=== PATIENT | male | born 1940 | race Caucasian/White ===

== ENCOUNTER 2017-01-23 08:12 | Day surgery (SDC) | payer MEDICARE, OTHER ==
[2017-01-20 10:55] VITALS: BMI 32.5
[~2017-01-23 08:12] MED LIST: ceFAZolin 1,000 MG in SODIUM CHLORIDE 0.9% IRRIGATIO 250 ML IRRIGATION ONE; ceFAZolin 2 GM in SODIUM CHLORIDE 0.9% 100 ML IVPB ONE
[2017-01-23] MEDS: SODIUM CHLORIDE 0.9% 1,000 ML IV SCH (08:43)
[2017-01-23 09:04] LABS: Anion Gap 11 mmol/L; Blood Urea Nitrogen 16 mg/dL (9-20); Calcium 9.4 mg/dL (8.4-10.2); Carbon Dioxide 24 mmol/L (22-30); Chloride 107 mmol/L (98-107); Glucose 116 mg/dL (74-99); Non-African American GFR(MDRD) 50 (>60 ml/min/1.73 sqM); Potassium 4.9 mmol/L (3.5-5.1); Sodium 142 mmol/L (137-145)
[2017-01-23] MEDS ORDERED: diphenhydrAMINE 50 MG/ML 1 ML VIAL ONE (09:12)
[2017-01-23] MEDS ORDERED: LIDOCAINE 1% INJ 10MG/ML (20 ML MDV) ONE (09:12)
[2017-01-23] MEDS ORDERED: fentaNYL (PF) 50 MCG/ML 2 ML AMP ONE (09:12)
[2017-01-23] MEDS ORDERED: PROPOFOL 10 MG/ML 20 ML VIAL IV ONE (09:12)
[2017-01-23] MEDS ORDERED: MIDAZOLAM 2 MG/2 ML VIAL ONE (09:12)
[2017-01-23] MEDS ORDERED: LIDOCAINE 1% INJ 10MG/ML (20 ML MDV) SQ ONE ×2 (09:48)
[2017-01-23] MEDS ORDERED: ACETAMINOPHEN TAB 325 MG TAB PO PRN (10:22)
[2017-01-23] MEDS ORDERED: POLYETHYLENE GLYCOL 3350 17 GM POWD.PACK PO PRN (10:23)
--- NOTE | 2017-01-23 10:33 | P.PCN ---
Date of Procedure: 01/23/17 Preoperative Diagnosis: , Cardiomyopathy and congestive heart failure with ejection fraction of less than 30% Postoperative Diagnosis: The same Procedure(s) Performed: Single-chamber AICD implantation, axillary venography Description of Procedure: HISTORY: This is a 76-year-old gentleman with history of ischemic cardiomyopathy and chronic congestive heart failure being followed by Dr. Yost. Patient also has chronic atrial fibrillation. He is advised to have single-chamber AICD for primary prevention CONSENT:I have discussed the risks, benefits and alternative therapies for the above-mentioned procedure and for both sedation/analgesia as well as necessary blood product administration, if indicated, as they pertain to this patient. The patient has indicated understanding and acceptance of the risks and procedures discussed. PROCEDURE: Patient was brought to the lab in a fasting state. Patient was prepped and draped in the usual fashion. Patient was given IV sedation with fentanyl and Versed. The skin below the left clavicle was infiltrated with lidocaine. An incision was made parallel to deltopectoral groove was deepened until the pectoral fascia was exposed. A pocket was created by blunt dissection and cautery. Axillary venography was performed to delineate the course of the axillary vein. One stick were performed into extrathoracic portion of the axillary vein and one sheath was advanced over the guidewires and left in subclavian vein. LEADS: VENTRICULAR: This is manufactured by [employer]. The model number is 0293. Serial number is [id number]. THE DEVICE: This is manufactured by [employer]. Model number is D150 and the serial number is [id number] The ventricular lead is maneuvered l with help of a straight and curved stylets into the left ventricle apical region. Satisfactory position was obtained and threshold measurements were made. The atrial lead was then maneuvered into the right atrial appendage. And thresholds were obtained. THRESHOLDS: VENTRICLE : The minimal patient threshold is 0.6 V at pulse width of 0.5 ms the impedance is 8 and 48 ohms. Shock impedance is 848 ohms R-wave: 8.2 mV The leads and pulse generator remained in the pocket after it was washed with antibiotics. Pocket was closed in the usual fashion. The fascia was closed with 2-0 Prolene ,the subcutaneous tissue was closed with 3-0 Prolene and the skin was closed with 4-0 Prolene. PROGRAMMING: MODE: VVI RATE: 40 OUTPUT: ventricle: 3.5 V at pulse width of 0.5 ms TACHYCARDIA THERAPY: VF ZONE: RATE IS PROGRAMMED TO 205 BPM. THERAPIES PROGRAMMED TO 41 J 8. VT ZONE. PROGRAMMED TO A RATE OF 1 75 BPM. DURATION IS PROGRAMMED TO 15 SECONDS. THERAPIES PROGRAMMED TO ATP, 31 J 1 FOLLOWED BY 41 J 5. FINAL IMPRESSION: #1. Axillary venography #2. Successful implantation of a single coil single-chamber AICD. COMPLICATIONS:None none PLAN: Patient will be monitored on the telemetry unit. Prophylactic antibiotic be continued. Patient was noted to be converted to sinus rhythm with a single attempt of T shock was done to induce V. tach which was unsuccessful. Subsequently that was abundant. We will start anticoagulation later today with IV heparin and changed to by mouth from tomorrow.
[2017-01-23] MEDS ORDERED: ceFAZolin 2 GM in SODIUM CHLORIDE 0.9% 100 ML IVPB STA (15:33)
[2017-01-23] MEDS ORDERED: HYDROcodone/APAP 10-325MG 1 EACH TAB ONE (16:06)
[2017-01-23] MEDS: HYDROcodone/APAP 5-325MG 1 EACH TAB PO PRN ×2 (16:11→22:14)
[2017-01-23] MEDS ORDERED: HEPARIN SODIUM PORCINE IV ONE (18:29)
[2017-01-23] MEDS ORDERED: SALINE IV ONE (18:29)
[2017-01-23] MEDS ORDERED: NS IV ONE (18:29)
[2017-01-23] MEDS ORDERED: HEPARIN SODIUM,PORCINE/D5W PMX 25,000 UNIT in DEXTROSE/WATER 1 500ML.BAG IV SCH (19:00)
[2017-01-23] MEDS ORDERED: ATORVASTATIN 80 MG TAB PO SCH (21:00)
[2017-01-23] MEDS: PANTOPRAZOLE 40 MG TABLET PO SCH (21:33)
[2017-01-23] MEDS: OXYBUTYNIN CHLORIDE 5 MG TAB PO SCH (21:33)
[2017-01-23] MEDS: GABAPENTIN 400 MG CAP PO SCH (21:33)
[2017-01-23] MEDS: METOPROLOL TARTRATE 50 MG TAB PO SCH (21:33)
[2017-01-23] MEDS: ceFAZolin 2 GM in SODIUM CHLORIDE 0.9% 100 ML IVPB SCH (22:09)
[2017-01-24] MEDS: ceFAZolin 2 GM in SODIUM CHLORIDE 0.9% 100 ML IVPB SCH ×3 (03:47→17:35)
[2017-01-24] MEDS: GABAPENTIN 400 MG CAP PO SCH ×4 (05:50→17:48)
[2017-01-24] MEDS: OXYBUTYNIN CHLORIDE 5 MG TAB PO SCH ×4 (05:50→17:48)
[2017-01-24] MEDS: SODIUM CHLORIDE 0.9% 1,000 ML IV SCH (07:12)
[2017-01-24] MEDS: HYDROcodone/APAP 5-325MG 1 EACH TAB PO PRN ×2 (07:31→17:53)
[2017-01-24 07:47] VITALS: RESP 18
--- NOTE | 2017-01-24 08:11 | XR ---
EXAMINATION TYPE: XR chest 2V DATE OF EXAM: 01/24/2017 6:17 AM COMPARISON: Prior chest x-ray for June 2015 HISTORY: Lead placement check TECHNIQUE: Frontal and lateral views of the chest are obtained. FINDINGS: Interval placement of a generator in the left pectoral region, intracardiac defibrillator lead is in the right ventricle. No pneumothorax or pleural effusion. Interstitium somewhat increased. Patient is post median sternotomy and the heart is enlarged. IMPRESSION: No evident complication status post defibrillator placement
--- NOTE | 2017-01-24 08:51 | P.DS ---
Providers Date of admission: January Attending physician: Dorothy Zhu Primary care physician: Husam Mulligan - Discharge Diagnosis(es) (1) Ischemic cardiomyopathy Current Visit: Yes Status: Acute (2) Chronic CHF Current Visit: Yes Status: Acute (3) AF (paroxysmal atrial fibrillation) Current Visit: No Status: Acute (4) Coronary atherosclerosis of [place] coronary artery Current Visit: No Status: Acute Priority: High (5) HTN (hypertension) Current Visit: No Status: Acute (6) Hyperlipemia Current Visit: No Status: Acute (7) History of placement of internal cardiac defibrillator Current Visit: Yes Status: Acute Hospital Course: This patient was brought infor prophylactic AICD implantation. Patient had device implanted yesterday which is a single-chamber single coil device. The procedure went without any complication. Patient remained stable. A chest x- ray shows proper lead position. Threshold remained stable. Patient complained of some wheezing last night. This morning his lungs appeared to be clear. Patient has been going in and out of atrial fibrillation and flutter. Currently is in sinus rhythm. Patient was maintained on low-dose heparin last night. The site looks good without any hematoma. We'll going to start him on low-dose apixaban 2.5 mg twice daily along with baby aspirin. He will resume Plavix from tomorrow. Patient will be followed by Dr. Yost in one week. Patient is given usual instructions of not lifting the left arm above the shoulder level. His nose revealed think pushing or pulling. He'll keep the area dry until seen in the office. He will also be given prophylactic antibiotics. Patient will report if there is an and the swelling or pain at the incision site. Plan - Discharge Summary Discharge Medication List Omeprazole [PriLOSEC] 40 mg PO AC-SUPPER 05/26/15 [History] Aspirin EC [Ecotrin Low Dose] 81 mg PO DAILY #30 tablet. 06/06/15 [Rx] Multivitamin [Men's Multi-Vitamin] 1 tab PO DAILY 08/08/15 [History] Atorvastatin [Lipitor] 80 mg PO HS 08/15/15 [History] Clopidogrel [Plavix] 75 mg PO DAILY #30 tab 08/17/15 [Rx] Cholecalciferol [Vitamin D3] 2,000 unit PO DAILY 12/19/15 [History] Ferrous Sulfate [Iron (65 MG Elemental)] 325 mg PO DAILY 12/19/15 [History] HYDROcodone/APAP 10-325MG [[place] 10-325] 1 tab PO Q6H PRN 12/19/15 [History] Metoprolol Tartrate [Lopressor] 50 mg PO BID 12/19/15 [History] Oxybutynin Chloride [Ditropan] 5 mg PO QID 12/19/15 [History] Docusate [Colace] 100 mg PO TID 01/01/16 [History] Apixaban [Eliquis] 2.5 mg PO BID 08/26/16 [History] Pyridoxine [Vitamin B-6] 100 mg PO DAILY 08/26/16 [History] Vitamin E (Dl,Tocopheryl Acet) [Vitamin E] 400 unit PO DAILY 08/26/16 [History] Gabapentin [Neurontin] 400 mg PO QID 01/23/17 [History] Lisinopril [Zestril] 2.5 mg PO DAILY 01/23/17 [History] Follow up Appointment(s)/Referral(s): Yosi Naqvi MD [STAFF PHYSICIAN] - 1 Week Discharge Disposition: HOME SELF-CARE
[2017-01-24] MEDS ORDERED: FERROUS SULFATE 325 MG TAB PO SCH (09:00)
[2017-01-24] MEDS ORDERED: PYRIDOXINE 50 MG TAB PO SCH (09:00)
[2017-01-24] MEDS ORDERED: MULTIVITAMINS, THERA 1 EACH TAB PO SCH (09:00)
[2017-01-24] MEDS ORDERED: CHOLECALCIFEROL 1,000 UNIT TAB PO SCH (09:00)
[2017-01-24] MEDS ORDERED: APIXABAN 2.5 MG TABLET PO SCH (09:00)
[2017-01-24] MEDS ORDERED: ASPIRIN 81 MG CHEW PO SCH (09:00)
[2017-01-24] MEDS: METOPROLOL TARTRATE 50 MG TAB PO SCH (09:05)
[2017-01-24 11:27] VITALS: BP 136/62; PULSE 48; TEMP 97.5
[2017-01-24] MEDS: PANTOPRAZOLE 40 MG TABLET PO SCH (17:48)
--- NOTE | 2017-01-28 12:02 | CDI ---
The procedure note states "IV sedation with fentanyl and Versed." Will you please clarify the level of sedation, such as moderate conscious. This information is required for proper coding and billing purposes. Please answer as an addendum to your op report. If you don't understand what is needed, please contact my credit administration manager, Maeve Sykes . Thank you. FRANSISCO Rob
--- NOTE | 2017-02-03 09:50 | CDI ---
The procedure note states "IV sedation with fentanyl and Versed.", yet the Anesthesia Record indicates GA. This is a conflict. Will you please clarify the level of sedation, such as moderate conscious or GA. This information is required for proper coding and billing purposes. Please answer as an addendum to your op report. If you don't understand what is needed, please contact my manager special events, Maeve Sykes . Thank you. FRANSISCO Rob
--- NOTE | 2017-03-07 14:38 | CDI ---
The procedure note states "IV sedation with fentanyl and Versed.", yet the Anesthesia Record indicates GA. This is a conflict. Will you please clarify the level of sedation, such as moderate conscious or GA. This information is required for proper coding and billing purposes. Please answer as an addendum to your op report. If you don't understand what is needed, please contact my liquor establishment manager, Maeve Sykes . Thank you. AYAN ROMERO
== END 2017-01-24 18:55 | disposition home or self-care (01) ==
LOC: CATHEP 08:12 → 3OBS 10:22 → CATHEP 01-24 18:55
PROVIDERS: ATTEND Internal Medicine Cardiovascular Disease
DX: I25.5 Ischemic cardiomyopathy (principal); I11.0 Hypertensive heart disease with heart failure; I50.42 Chronic combined systolic (congestive) and diastolic (congestive) heart failure; I48.2 Chronic atrial fibrillation; I25.10 Atherosclerotic heart disease of native coronary artery without angina pectoris; Z95.1 Presence of aortocoronary bypass graft; E78.5 Hyperlipidemia, unspecified; I48.92 Unspecified atrial flutter; Z00.6 Encounter for examination for normal comparison and control in clinical research program; I73.9 Peripheral vascular disease, unspecified; Z95.820 Peripheral vascular angioplasty status with implants and grafts; K21.9 Gastro-esophageal reflux disease without esophagitis; I25.2 Old myocardial infarction; Z79.01 Long term (current) use of anticoagulants; Z79.02 Long term (current) use of antithrombotics/antiplatelets; Z79.82 Long term (current) use of aspirin; Z79.891 Long term (current) use of opiate analgesic; Z79.899 Other long term (current) drug therapy; Z87.891 Personal history of nicotine dependence
CPT/HCPCS: 33249; 80048; 71020; C1892; C1769; C1777; C1722; J2250; J1200; J0690 ×3; J2001; J1644; J3010; J2704

== ENCOUNTER 2017-02-17 17:44 | Inpatient (IN) | payer MEDICARE, OTHER ==
[2017-02-17] MEDS ORDERED: SODIUM CHLORIDE 0.9% 1,000 ML IV STA ×2 (18:28→18:48)
[2017-02-17] MEDS ORDERED: methylPREDNISolone SOD SUCCI 125 MG/2 ML VIAL IV STA ×2 (18:29→18:48)
--- NOTE | 2017-02-17 18:36 | ED ---
SOB HPI - General Chief Complaint: Shortness of Breath Stated Complaint: coughing blood Time Seen by Provider: 02/17/17 18:02 Source: EMS Mode of arrival: EMS - History of Present Illness Initial Comments: This 76-year-old white male presents with a complaint of some hemoptysis. He has had some mild shortness of breath. He states that he has had this intermittently over the past 2 years. He states that it increased significantly this morning at approximately 5 AM. He has had some shortness of breath as well. He denies any actual chest pain. He denies any colored production of his sputum. It is more of a dark red type of color. He was seen at [facility] ER and transferred here for further treatment. He does have a history of prostate cancer and he had a prostatectomy in 1998. His been in remission in regard to his prostate cancer since that time. They noted that he does have a right lung mass at [place]. He did receive breathing treatments and a computed tomography scan of the chest as well. He currently is on aspirin, Plavix, and L [place]. He does have a cardiac history including previous coronary artery disease and CABG as well as atrial fibrillation. He was transferred to our hospital for further treatment and admission. No other complaints or modifying factors. - Related Data Home Medications Medication Instructions Recorded Confirmed Omeprazole [PriLOSEC] 40 mg PO AC-SUPPER 05/26/15 01/23/17 Multivitamin [Men's Multi-Vitamin] 1 tab PO DAILY 08/08/15 01/23/17 Atorvastatin [Lipitor] 80 mg PO HS 08/15/15 01/23/17 Cholecalciferol [Vitamin D3] 2,000 unit PO DAILY 12/19/15 01/20/17 Ferrous Sulfate [Iron (65 MG 325 mg PO DAILY 12/19/15 01/23/17 Elemental)] HYDROcodone/APAP 10-325MG [[place] 1 tab PO Q6H PRN 12/19/15 01/23/17 10-325] Metoprolol Tartrate [Lopressor] 50 mg PO BID 12/19/15 01/23/17 Oxybutynin Chloride [Ditropan] 5 mg PO QID 12/19/15 01/23/17 Docusate [Colace] 100 mg PO TID 01/01/16 01/23/17 Apixaban [Eliquis] 2.5 mg PO BID 08/26/16 01/20/17 Pyridoxine [Vitamin B-6] 100 mg PO DAILY 08/26/16 01/20/17 Vitamin E (Dl,Tocopheryl Acet) 400 unit PO DAILY 08/26/16 01/20/17 [Vitamin E] Gabapentin [Neurontin] 400 mg PO QID 01/23/17 01/23/17 Lisinopril [Zestril] 2.5 mg PO DAILY 01/23/17 01/23/17 Previous Rx's Medication Instructions Recorded Aspirin EC [Ecotrin Low Dose] 81 mg PO DAILY #30 tablet. 06/06/15 Clopidogrel [Plavix] 75 mg PO DAILY #30 tab 08/17/15 Allergies Allergy/AdvReac Type Severity Reaction Status Date / Time No Known Allergies Allergy Verified 02/17/17 18:22 Review of Systems ROS Statement: Those systems with pertinent positive or pertinent negative responses have been documented in the HPI. ROS Other: All systems not noted in ROS Statement are negative. Past Medical History Past Medical History: Atrial Fibrillation, Cancer, GERD/Reflux, Hyperlipidemia, Hypertension, Myocardial Infarction ([place]), Prostate Disorder Additional Past Medical History / Comment(s): prostate CA, see Dr Zhu H & P, SOB w/exertion Last Myocardial Infarction Date:: 05/27/15 History of Any Multi-Drug Resistant Organisms: MRSA Date of last positivie culture/infection: 09/2015 MDRO Source:: RIGHT TESTICLE Past Surgical History: Coronary Bypass/CABG, Joint Replacement, Prostate Surgery , Tonsillectomy Additional Past Surgical History / Comment(s): left thumb surgery., CABG (), BALLOON ANGIOPLASTY W/ STENT TO LT SFA (08/16/15), lt total knee, prostatectomy, 01/23/17 ICD Past Anesthesia/Blood Transfusion Reactions: No Reported Reaction Past Psychological History: Anxiety, Depression Additional Psychological History / Comment(s): TAKES NO MEDICATION Smoking Status: Former smoker Past Alcohol Use History: Occasional Additional Past Alcohol Use History / Comment(s): STARTED SMOKING AT AGE 15 QUIT SMOKING 2014 SMOKED 1 -1 1/2PPD Past Drug Use History: None Reported - Past Family History Father History Unknown: Yes Family Medical History: No Reported History Additional Family Medical History / Comment(s): young Mother Family Medical History: No Reported History Additional Family Medical History / Comment(s): young General Exam - General Exam Comments Initial Comments: GENERAL: The patient is well nourished and well hydrated. VITAL SIGNS: Heart rate, blood pressure, respiratory rate reviewed as recorded in nurse's notes. EYES: Pupils are round and reactive. Extraocular movements are intact. No conjunctival / lid redness or swelling. ENT: No external evidence of injury, swelling, or ecchymosis. Airway is patent. Throat is clear. NECK: Nontender. No swelling or evidence of injury. No subcutaneous emphysema. Trachea is midline. No thyroid mass. HEART: Regular rate and rhythm. Good peripheral pulses. LUNGS/CHEST: Wheezing is noted to bilateral chest. No respiratory distress noted. No ecchymosis, subcutaneous emphysema, or tenderness. He does cough on occasion and brings up bright red blood. ABDOMEN: Abdomen soft without tenderness. No palpable masses or organomegaly. No peritoneal signs. No abdominal wall swelling or ecchymosis. EXTREMITIES: No extremity tenderness. Normal muscle tone and function. No thoracolumbar tenderness. NEUROLOGIC: Sensation is grossly intact. Cranial nerve exam reveals face is symmetrical, tongue is midline, speech is clear. SKIN: No abrasions or ecchymosis is noted. No induration or masses noted. PSYCHIATRIC: Alert and oriented. Appropriate behavior and judgment. Course Vital Signs 02/17/17 17:49 Temperature 97.1 F L Pulse Rate 76 Respiratory 18 Rate Blood Pressure 147/87 O2 Sat by Pulse 98 Oximetry Medical Decision Making - Medical Decision Making The patient was seen and examined. The records from [facility] are reviewed. Patient is ordered a DuoNeb breathing treatment. His x-ray of the chest that showed possibility of a right sided mass. He also had a computed tomography scan of the thorax which shows a 2.1 cm right upper lobe peripheral mass with significant volume loss within the right upper lobe due to a large amount of right hilar adenopathy. There is significant right paratracheal adenopathy. The radiologist notes that the appearance is consistent with primary neoplasm of the lung. There is also patchy groundglass densities with in both lower lobes. The patient's hemoglobin was slightly low at 10.9. The EKG from the other facility does show an ectopic atrial rhythm. It is felt as though he would require admission to the hospital for further evaluation and treatment by pulmonology and possibly oncology. The case will be discussed with primary doctor in the near future and he will be admitted. Disposition Clinical Impression: Mass of upper lobe of right lung, Hemoptysis, Anemia, Hypertension, Atrial fibrillation, Bronchospasm Disposition: ADMITTED IP TO THIS HOSP Condition: Fair Time of Disposition: 18:36 Decision Date: 02/17/17 Decision Time: 18:36
[2017-02-17] MEDS: IPRATROPIUM-ALBUTEROL 3 ML NEB INHALATION STA ×2 (18:44→18:54)
[2017-02-17] MEDS ORDERED: IPRATROPIUM-ALBUTEROL 3 ML NEB INHALATION STA (18:48)
[2017-02-17] MEDS ORDERED: SODIUM CHLORIDE 0.9% 500 ML IV STA (18:48)
[2017-02-17] MEDS ORDERED: LEVOFLOXACIN 750MG-D5W PMX 750 MG in DEXTROSE/WATER 1 150ML.BAG IVPB STA (18:48)
[2017-02-17 21:26] VITALS: BMI 30.4
[2017-02-17] MEDS: APIXABAN 2.5 MG TABLET PO SCH (21:41)
[2017-02-17] MEDS: LISINOPRIL 2.5 MG TAB PO SCH (21:42)
[2017-02-17] MEDS: GABAPENTIN 400 MG CAP PO SCH (21:42)
[2017-02-17] MEDS: METOPROLOL TARTRATE 50 MG TAB PO SCH (21:42)
[2017-02-17] MEDS: OXYBUTYNIN CHLORIDE 5 MG TAB PO SCH (21:42)
[2017-02-18] MEDS: methylPREDNISolone SOD SUCCI 125 MG/2 ML VIAL IV SCH ×4 (00:55→16:05)
[2017-02-18] MEDS: ATORVASTATIN 80 MG TAB PO SCH (01:06)
[2017-02-18] MEDS: GABAPENTIN 400 MG CAP PO SCH ×4 (01:06→20:50)
[2017-02-18] MEDS: HYDROcodone/APAP 10-325MG 1 EACH TAB PO PRN (01:06)
[2017-02-18] MEDS: GABAPENTIN 100 MG CAP PO SCH ×2 (01:07→14:11)
[2017-02-18] MEDS: VITAMIN E (DL,TOCOPHERYL ACET) 400 UNIT CAP PO SCH (01:07)
[2017-02-18 01:37] LABS: Basophils % (A) 0 %; CH 35.6; CHCM 34.3; Eosinophils % (A) 0 %; HCT 30.6 % (39.0-53.0); HDW 2.74; HGB 10.6 gm/dL (13.0-17.5); Luc # (Auto) 0.04; Luc % (Auto) 1; Lymphocytes # (A) 0.5 k/uL (1.0-4.8); Lymphocytes % (A) 6 %; MCHC 34.6 g/dL (31.0-37.0); Macrocytosis Slight; Mean Platelet Volume 8.6; Monocytes # (A) 0.1 k/uL (0-1.0); Monocytes % (A) 2 %; Neutrophils # (A) 7.2 k/uL (1.3-7.7); Neutrophils % (A) 92 %; RBC 2.94 m/uL (4.30-5.90); RDW 12.7 % (11.5-15.5); WBC 7.9 k/uL (3.8-10.6); WBC (Perox) 7.88
[2017-02-18] MEDS ORDERED: ASPIRIN 81 MG CHEW PO SCH (02:00)
[2017-02-18 06:03] LABS: Hepatitis B Surface Ag Index 0.05
[2017-02-18 06:20] LABS: Hepatitis C Virus IgG Index 0.06
[2017-02-18 06:26] LABS: Hepatitis C Virus IgG Ab Negative (Negative)
[2017-02-18] MEDS: APIXABAN 2.5 MG TABLET PO SCH (08:48)
[2017-02-18] MEDS: POLYETHYLENE GLYCOL 3350 17 GM POWD.PACK PO SCH (08:54)
[2017-02-18] MEDS: OXYBUTYNIN CHLORIDE 5 MG TAB PO SCH ×4 (08:56→20:50)
[2017-02-18] MEDS: METOPROLOL TARTRATE 50 MG TAB PO SCH ×2 (08:56→20:51)
[2017-02-18] MEDS: MULTIVITAMINS, THERA 1 EACH TAB PO SCH (08:56)
[2017-02-18] MEDS: FERROUS SULFATE 325 MG TAB PO SCH (08:57)
[2017-02-18] MEDS: SPIRONOLACTONE 25 MG TAB PO SCH (08:58)
[2017-02-18 09:52] LABS: Basophils % (A) 0 %; CH 35.7; CHCM 33.9; Eosinophils % (A) 0 %; HCT 31.1 % (39.0-53.0); HDW 2.69; HGB 10.4 gm/dL (13.0-17.5); Luc # (Auto) 0.02; Luc % (Auto) 0; Lymphocytes # (A) 0.6 k/uL (1.0-4.8); Lymphocytes % (A) 5 %; MCH 35.4 pg (25.0-35.0); MCHC 33.5 g/dL (31.0-37.0); MCV 105.6 fL (80.0-100.0); Macrocytosis Slight; Mean Platelet Volume 7.6; Monocytes # (A) 0.3 k/uL (0-1.0); Monocytes % (A) 2 %; Neutrophils # (A) 12.3 k/uL (1.3-7.7); Neutrophils % (A) 93 %; RBC 2.95 m/uL (4.30-5.90); RDW 12.8 % (11.5-15.5); WBC 13.2 k/uL (3.8-10.6)
[2017-02-18] MEDS: IPRATROPIUM-ALBUTEROL 3 ML NEB INHALATION PRN ×2 (11:26→19:55)
[2017-02-18] MEDS: SODIUM CHLORIDE 0.9% 1,000 ML IV SCH ×2 (12:07→21:30)
--- NOTE | 2017-02-18 13:27 | P.CNPUL ---
History of Present Illness Consult date: 02/18/17 Requesting physician: Husam Mulligan Reason for consult: abnormal CXR/CT (Right upper lobe mass, hemoptysis) Chief complaint: Hemoptysis History of present illness: This is a very pleasant 76-year-old gentleman who follows with Dr. Mulligan as his primary care physician. He has a history of atrial fibrillation, myocardial infarction, coronary artery disease status post coronary artery bypass grafting, ischemic cardiomyopathy status post AICD placement less than one month ago, hyperlipidemia, hypertension, prostate cancer status post prostatectomy. The patient has been maintained on aspirin and Plavix and Eliquis. He does have a significant 18-qhcb-gnon smoking history though states he had quit on and off throughout those years. He did quit altogether in 2014. He presented here to the emergency room yesterday from [facility] following complaints of hemoptysis. He's been coughing up quite a bit of bright red and occasional dark blood clots. A computed tomography scan of the chest revealed a 2.1 cm right upper lobe peripheral mass with significant volume loss in the right upper lobe due to a large amount of right hilar adenopathy. We are consulted for the same. The patient is seen today in the regular medical floor. He continues to have a fair amount of hemoptysis. His Plavix aspirin and Eliquis are now on hold. He is on heparin subcutaneous for DVT prophylaxis. He denies any worsening shortness of breath. He is maintaining O2 saturations in the mid 90s on room air. He has been hemodynamically stable. Afebrile. Current hemoglobin 10.4. Platelet count 135 ,000. Hepatitis B and C were negative. HIV is negative. Review of Systems 14 point review of system was conducted. All negative other than as mentioned in HPI. Past Medical History Past Medical History: Atrial Fibrillation, Cancer, GERD/Reflux, Hyperlipidemia, Hypertension, Myocardial Infarction ([place]), Prostate Disorder Additional Past Medical History / Comment(s): prostate CA, neuropathy Last Myocardial Infarction Date:: 05/27/15 History of Any Multi-Drug Resistant Organisms: MRSA Date of last positivie culture/infection: 09/2015 MDRO Source:: RIGHT TESTICLE Past Surgical History: Coronary Bypass/CABG, Joint Replacement, Prostate Surgery , Tonsillectomy Additional Past Surgical History / Comment(s): left thumb surgery., CABG (), BALLOON ANGIOPLASTY W/ STENT TO LT SFA (08/16/15), lt total knee, prostatectomy, 01/23/17 ICD Past Anesthesia/Blood Transfusion Reactions: No Reported Reaction Past Psychological History: Anxiety, Depression Additional Psychological History / Comment(s): TAKES NO MEDICATION Smoking Status: Former smoker Past Alcohol Use History: Occasional Additional Past Alcohol Use History / Comment(s): STARTED SMOKING AT AGE 15 QUIT SMOKING 2014 SMOKED 1 -1 1/2PPD Past Drug Use History: None Reported - Past Family History Father History Unknown: Yes Family Medical History: No Reported History Additional Family Medical History / Comment(s): young Mother Family Medical History: No Reported History Additional Family Medical History / Comment(s): young Medications and Allergies Home Medications Medication Instructions Recorded Confirmed Type Omeprazole [PriLOSEC] 40 mg PO AC-SUPPER 05/26/15 02/17/17 History Atorvastatin [Lipitor] 80 mg PO HS@0200 08/15/15 02/17/17 History Cholecalciferol [Vitamin D3] 1,000 unit PO DAILY@1400 12/19/15 02/17/17 History Ferrous Sulfate [Iron (65 MG 325 mg PO DAILY@0800 12/19/15 02/17/17 History Elemental)] HYDROcodone/APAP 10-325MG [[place] 1 tab PO Q6H PRN 12/19/15 02/17/17 History 10-325] Oxybutynin Chloride [Ditropan] 5 mg PO QID 12/19/15 02/17/17 History Docusate [Colace] 300 mg PO DAILY@139901/01/16 02/17/17 History Apixaban [Eliquis] 2.5 mg PO BID@0800,199908/26/16 02/17/17 History Pyridoxine [Vitamin B-6] 100 mg PO DAILY@139908/26/16 02/17/17 History Vitamin E (Dl,Tocopheryl Acet) 400 unit PO HS@0200 08/26/16 02/17/17 History [Vitamin E] Lisinopril [Zestril] 2.5 mg PO DAILY@199901/23/17 02/17/17 History Aspirin EC [Ecotrin Low Dose] 81 mg PO HS@0200 02/17/17 02/17/17 History Clopidogrel [Plavix] 75 mg PO DAILY@0800 02/17/17 02/17/17 History Gabapentin [Neurontin] 100 mg PO BID@1400,0200 02/17/17 02/17/17 History Gabapentin [Neurontin] 400 mg PO QID 02/17/17 02/17/17 History Metoprolol Tartrate [Lopressor] 50 mg PO BID@0800,2000 02/17/17 02/17/17 History Multivitamins, Thera [Multivitamin 1 tab PO DAILY@0800 02/17/17 02/17/17 History (formulary)] Polyethylene Glycol 3350 [Miralax] 17 gm PO DAILY@0800 02/17/17 02/17/17 History Spironolactone [Aldactone] 25 mg PO DAILY@0800 02/17/17 02/17/17 History Allergies Allergy/AdvReac Type Severity Reaction Status Date / Time No Known Allergies Allergy Verified 02/17/17 18:22 Physical Exam Vitals: Vital Signs Temp Pulse Pulse Pulse Resp BP BP 02/18/17 11:48 82 02/18/17 11:26 80 18 02/18/17 08:00 68 66 18 02/18/17 07:00 96.2 F L 66 18 158/70 02/18/17 00:00 68 16 02/17/17 22:55 97 F L 87 16 162/67 02/17/17 21:00 97.6 F 89 16 167/73 02/17/17 20:38 97.3 F L 87 18 188/78 02/17/17 19:36 97.9 F 72 18 153/76 Pulse Ox 02/18/17 11:48 02/18/17 11:26 02/18/17 08:00 02/18/17 07:00 94 L 02/18/17 00:00 02/17/17 22:55 96 02/17/17 21:00 95 02/17/17 20:38 96 02/17/17 19:36 96 Intake and Output 02/17/17 02/18/17 02/18/17 22:59 06:59 14:59 Other: Voiding Method Toilet # Voids 1 1 Weight 90.7 kg 94.4 kg Patient Weight 02/19/17 06:59 Weight 94.4 kg GENERAL EXAM: Alert, fairly comfortable in no apparent distress. HEAD: Normocephalic. EYES: Normal reaction of pupils, equal size. NOSE: Clear with pink turbinates. THROAT: No erythema or exudates. NECK: No masses, no JVD. CHEST: No chest wall deformity. LUNGS: Equal air entry with few scattered rhonchi in the right lung. CVS: S1 and S2 normal with audible murmur, irregular rhythm. ABDOMEN: No hepatosplenomegaly, normal bowel sounds, no guarding or rigidity. SPINE: No scoliosis or deformity SKIN: No rashes CENTRAL NERVOUS SYSTEM: No focal deficits, tone is normal in all 4 extremities. Extremities: There is trace peripheral edema. No clubbing, no cyanosis. Peripheral pulses are intact. Results - Laboratory Findings CBC and BMP: 02/18/17 09:11 Abnormal lab findings: Abnormal Labs 02/18/17 02/18/17 01:31 09:11 WBC 13.2 H RBC 2.94 L 2.95 L Hgb 10.6 L 10.4 L Hct 30.6 L 31.1 L MCV 104.0 H 105.6 H MCH 36.0 H 35.4 H Plt Count 135 L 136 L Neutrophils # 12.3 H Lymphocytes # 0.5 L 0.6 L - Diagnostic Findings Chest x-ray: image reviewed CT scan - chest: image reviewed Assessment and Plan Plan: Impression: #1 Hemoptysis secondary to suspected bronchogenic carcinoma with a 2.1 cm mass in the right upper lobe. The patient had been anticoagulated with aspirin, Plavix and Eliquis. #2 History of 50+ pack year smoking, quit in 2014. #3 Ischemic cardiomyopathy status post AICD placement on 01/23/2017. Chest x- ray at that time showed no acute process. No evidence of right upper lobe mass or right hilar adenopathy. #4 Coronary artery disease with previous coronary artery bypass grafting. #5 Atrial fibrillation and is anticoagulated with Eliquis. #6 Peripheral vascular disease with previous stent to the left SFA. Currently on aspirin and Plavix. #7 Hyperlipidemia. #8 Anxiety/depression. #9 Hypertension. #10 History of prostate cancer status post prostatectomy. Plan: The patient was seen and evaluated by Dr. Sol. His chest x-ray and CAT scans were reviewed. We are suspicious for bronchogenic carcinoma. We'll plan for bronchoscopy and biopsy of the right upper lobe mass tomorrow. We'll continue to monitor him closely for his hemoptysis. He did have some significant tissue along with the clot we will send that to pathology for possible diagnosis but will continue to plan for the proper tomorrow. His Eliquis, Plavix and aspirin are on hold. He'll remain on heparin subcutaneous for DVT prophylaxis. He remains on bronchodilators and IV Solu-Medrol. We'll continue to follow. Time with Patient: Greater than 30
--- NOTE | 2017-02-18 14:02 | P.HPIM ---
History of Present Illness H&P Date: 02/18/17 Chief Complaint: Hemoptysis Patient is a 76-year-old male, patient of Dr. Mulligan in the outpatient setting, with medical history significant for paroxysmal atrial fibrillation, GERD, hyperlipidemia, hypertension, coronary artery disease status post coronary artery bypass grafting in 2014 followed by stenting to the left SFA in August 2015, myocardial infarction, ischemic cardiomyopathy status post placement of internal cardiac defibrillator, prostate cancer status post prostatectomy in 1998, peripheral vascular disease status post stent placement to left lower extremity, osteoarthritis, severe peripheral neuropathy, and remote nicotine dependence. Patient presented via EMS to the emergency department when he was transferred from [facility] for hemoptysis and mild shortness of breath. Patient apparently had had intermittent hemoptysis over the last couple years but increased significantly at 5 AM on the morning of admission. According to chart, CT chest obtained at [facility] did reveal a 2.1 cm right upper lobe mass with appearance consistent with primary neoplasm of lung. Admission labs with evidence of anemia and thrombocytopenia. Patient was admitted to the medical floor on cardiac monitoring, started on IV antibiotics in the form of Levaquin, and consults were requested for Dr. Sol for pulmonology service and cardiology recommendations for anticoagulation. Upon examination, patient is sitting upright in bed. Patient reports persistent coughing with persistent hemoptysis. Secretions are dark red with blood clots and small amounts of tissue are noted. Patient complains of pain inferiorly to right rib cage. Patient complains of mild dizziness with ambulation. Patient denies nausea, vomiting, chills, fevers, recent illness, chest pain, constipation, diarrhea, urinary urgency, frequency, hematuria. Patient states his bowel movements are usually black which he states is from iron supplements. Past Medical History Past Medical History: Atrial Fibrillation, Cancer, GERD/Reflux, Hyperlipidemia, Hypertension, Myocardial Infarction (SC), Prostate Disorder Additional Past Medical History / Comment(s): prostate CA, neuropathy Last Myocardial Infarction Date:: 05/27/15 History of Any Multi-Drug Resistant Organisms: MRSA Date of last positivie culture/infection: 09/2015 MDRO Source:: RIGHT TESTICLE Past Surgical History: Coronary Bypass/CABG, Joint Replacement, Prostate Surgery , Tonsillectomy Additional Past Surgical History / Comment(s): left thumb surgery., CABG (), BALLOON ANGIOPLASTY W/ STENT TO LT SFA (08/16/15), lt total knee, prostatectomy, 01/23/17 ICD Past Anesthesia/Blood Transfusion Reactions: No Reported Reaction Past Psychological History: Anxiety, Depression Additional Psychological History / Comment(s): TAKES NO MEDICATION Smoking Status: Former smoker Past Alcohol Use History: Occasional Additional Past Alcohol Use History / Comment(s): STARTED SMOKING AT AGE 15 QUIT SMOKING 2014 SMOKED 1 -1 1/2PPD Past Drug Use History: None Reported - Past Family History Father History Unknown: Yes Family Medical History: No Reported History Additional Family Medical History / Comment(s): young Mother Family Medical History: No Reported History Additional Family Medical History / Comment(s): young Medications and Allergies Home Medications Medication Instructions Recorded Confirmed Type Omeprazole [PriLOSEC] 40 mg PO AC-SUPPER 05/26/15 02/17/17 History Atorvastatin [Lipitor] 80 mg PO HS@0200 08/15/15 02/17/17 History Cholecalciferol [Vitamin D3] 1,000 unit PO DAILY@1400 12/19/15 02/17/17 History Ferrous Sulfate [Iron (65 MG 325 mg PO DAILY@0800 12/19/15 02/17/17 History Elemental)] HYDROcodone/APAP 10-325MG [[place] 1 tab PO Q6H PRN 12/19/15 02/17/17 History 10-325] Oxybutynin Chloride [Ditropan] 5 mg PO QID 12/19/15 02/17/17 History Docusate [Colace] 300 mg PO DAILY@1400 01/01/16 02/17/17 History Apixaban [Eliquis] 2.5 mg PO BID@08,199908/26/16 02/17/17 History Pyridoxine [Vitamin B-6] 100 mg PO DAILY@1400 08/26/16 02/17/17 History Vitamin E (Dl,Tocopheryl Acet) 400 unit PO HS@0200 08/26/16 02/17/17 History [Vitamin E] Lisinopril [Zestril] 2.5 mg PO DAILY@199901/23/17 02/17/17 History Aspirin EC [Ecotrin Low Dose] 81 mg PO HS@0200 02/17/17 02/17/17 History Clopidogrel [Plavix] 75 mg PO DAILY@0802/17/1717 History Gabapentin [Neurontin] 100 mg PO BID@1400,0200 02/17/17 02/17/17 History Gabapentin [Neurontin] 400 mg PO QID 02/17/17 02/17/17 History Metoprolol Tartrate [Lopressor] 50 mg PO BID@0800,2000 02/17/17 02/17/17 History Multivitamins, Thera [Multivitamin 1 tab PO DAILY@0800 02/17/17 02/17/17 History (formulary)] Polyethylene Glycol 3350 [Miralax] 17 gm PO DAILY@0800 02/17/17 02/17/17 History Spironolactone [Aldactone] 25 mg PO DAILY@0800 02/17/17 02/17/17 History Allergies Allergy/AdvReac Type Severity Reaction Status Date / Time No Known Allergies Allergy Verified 02/17/17 18:22 Physical Exam Vitals: Vital Signs Temp Pulse Pulse Pulse Resp BP BP 02/18/17 11:48 82 02/18/17 11:26 80 18 02/18/17 08:00 68 66 18 02/18/17 07:00 96.2 F L 66 18 158/70 02/18/17 00:00 68 16 02/17/17 22:55 97 F L 87 16 162/67 02/17/17 21:00 97.6 F 89 16 167/73 02/17/17 20:38 97.3 F L 87 18 188/78 02/17/17 19:36 97.9 F 72 18 153/76 Pulse Ox 02/18/17 11:48 02/18/17 11:26 02/18/17 08:00 02/18/17 07:00 94 L 02/18/17 00:00 02/17/17 22:55 96 02/17/17 21:00 95 02/17/17 20:38 96 02/17/17 19:36 96 Intake and Output 02/17/17 02/18/17 02/18/17 22:59 06:59 14:59 Other: Voiding Method Toilet # Voids 1 1 Weight 90.7 kg 94.4 kg Patient Weight 02/19/17 06:59 Weight 94.4 kg GENERAL: Pt awake and alert, well-nourished, appears in no acute distress. HEAD: Atraumatic, normocephalic. EYES: Pupils equal, round, and reactive to light, extraocular movements intact, sclera anicteric, conjunctiva are normal. ENT: Moist mucous membranes. NECK:Supple without lymphadenopathy or JVD. LUNGS: Breath sounds diminished to right upper lobe with few rhonchi. HEART: Heart S1, S2, no S3 or S4. Irregularly irregular. Systolic murmur. ABDOMEN: Soft, obese, nontender, nondistended, normoactive bowel sounds. No guarding, no rebound. No masses or organomegaly appreciated. EXTREMITIES: 1+ peripheral pulses. Trace peripheral edema. No calf tenderness. NEUROLOGICAL: Pt oriented x 3. No focal deficits noted. Decreased sensation to bilateral lower extremities. PSYCH: Normal mood, normal affect. SKIN: Warm, dry, intact. Normal turgor. No rashes or lesions. Results CBC & Chem 7: 02/18/17 09:11 Labs: Abnormal Lab Results - Last 24 Hours (Table) 02/18/17 02/18/17 Range/Units 01:31 09:11 WBC 13.2 H (3.8-10.6) k/uL RBC 2.94 L 2.95 L (4.30-5.90) m/uL Hgb 10.6 L 10.4 L (13.0-17.5) gm/dL Hct 30.6 L 31.1 L (39.0-53.0) % MCV 104.0 H 105.6 H (80.0-100.0) fL MCH 36.0 H 35.4 H (25.0-35.0) pg Plt Count 135 L 136 L (150-450) k/uL Neutrophils # 12.3 H (1.3-7.7) k/uL Lymphocytes # 0.5 L 0.6 L (1.0-4.8) k/uL Thrombosis Risk Factor Assmnt - DVT/VTE Prophylaxis DVT/VTE Prophylaxis: Pharmacologic Prophylaxis ordered - Choose All That Apply Any of the Below Risk Factors Present?: Yes Each Factor Represents 1 point: Obesity (BMI >25), Serious lung disease incl. pneumonia (< 1month) Other Risk Factors: Yes Each Risk Factor Represents 2 Points: Age 61-74 years Thrombosis Risk Factor Assessment Total Risk Factor Score: 4 Thrombosis Risk Factor Assessment Level: Moderate Risk Assessment and Plan Plan: Impression: 1. Mild shortness of breath with hemoptysis suspect secondary to right upper lobe mass suspicious for carcinoma. 2. Anemia suspect secondary to hemoptysis with history of iron deficiency and vitamin B12 deficiency. 3. Thrombocytopenia, present on admission. 4. Paroxysmal atrial fibrillation maintained on Eliquis in the outpatient setting. 5. Hyperlipidemia. 6. Hypertension. 7. History of ischemic cardiomyopathy status post ICD placement. 8. Coronary artery disease status post coronary artery bypass grafting followed by stenting. 9. History of prostate cancer status post prostatectomy. 10. History of GERD. 11. Severe peripheral vascular disease status post stenting to right lower extremity. 12. Severe peripheral neuropathy. 13. Osteoarthritis. 14. History of anxiety and depression, stable. 15. History of nicotine dependence. Plan: Transfer patient to selective care unit for further monitoring and serial hemoglobin. Keep patient nothing by mouth until he has been evaluated by pulmonary service for possible bronchoscopy. Resume IV fluids at 100 mL an hour. Anticoagulation currently on hold. Continue bronchodilators and systemic steroids. Await pulmonology and cardiology recommendations. Maintain aspiration precautions. Home medications of been reviewed and resumed. Continue IV antibiotics for empiric coverage. Continue GI and DVT prophylaxis. Repeat labs in a.m. The above impression and plan have been discussed and directed by Dr. Mulligan. Carmel LACEY acting as scribe for Dr. Mulligan.
[2017-02-18] MEDS: CHOLECALCIFEROL 1,000 UNIT TAB PO SCH (14:10)
[2017-02-18] MEDS: DOCUSATE 100 MG CAP PO SCH (14:11)
[2017-02-18] MEDS: PYRIDOXINE 50 MG TAB PO SCH (14:12)
--- NOTE | 2017-02-18 14:59 | CONS ---
DATE OF CONSULTATION: Patient follows with my associate, Dr. Naqvi. Patient is known to have atherosclerotic heart disease, status post aortocoronary bypass done last year, August 2015. Patient was recently in the hospital last month with atrial fibrillation with fast ventricular rate, underwent cardioversion after having the SASHA done. Patient's SASHA shows 30% to 35% ejection fraction. Also underwent single chamber ICD done by Dr. Zhu and chest x-ray at that time showed no evidence of any other problems. This time comes in with hemoptysis for the last few days and patient was transferred from [facility]. Patient had a prostatectomy done in 1998, had a CT of the chest done which showed right upper lobe mass 2.1 cm with mediastinal adenopathy according to the emergency noted. I have not seen the report myself. In view of history of stenting of the SFA about in August of 2015, patient has been on Plavix and aspirin and Eliquis will be on hold until hemoptysis resolved and until the tile power shear operator has a chance to confirm the histologic diagnosis and the lung mass. ( ) new findings but will change patient's diagnosis. Patient's medications prior to admission include omeprazole 20 mg p.o. daily, multivitamins and atorvastatin 80 mg p.o. daily, Calciferol 2000 units daily, ferrous sulfate 325 mg, [place] as needed. Metoprolol tartrate 50 mg p.o. b.i.d., Ditropan 5 mg p.o. q.i.d., Colace 100 mg p.o. t.i.d., Eliquis 2.5 mg p.o. b.i.d., which will be on hold and lisinopril 2.5 mg p.o. daily, Neurontin 400 mg p.o. q.i.d. Patient's aspirin and Plavix are on hold and Eliquis will be on hold until hemoptysis resolves. We will start him on subQ heparin for DVT prophylaxis. Patient and family was informed of findings and tile power shear operator will talk to them with more details. Patient is under care of Dr. Naqvi. Patient also has history of MRSA in the past. Patient had a left SFA balloon angioplasty and stent done in August of 2015. Plavix can be on hold now. Started smoking at 15, quit smoking in 2014, used to smoke 1 to 1-1/2 pack of cigarettes a day. Patient's review of systems is essentially unremarkable other than what is stated in the presenting illness with hemoptysis. Physical examination revealed a well-developed 76-year-old gentleman, not in acute distress, oriented x3 with a pulse rate of 76 beats per minute and regular, blood pressure of 147/87, respirations of 18. HEAD: Normocephalic. HEENT unremarkable. Neck is supple. No thyroid enlargement. No bruit noted. Good carotid upstroke bilaterally. Chest is symmetrical. CARDIAC EXAMINATION: Regular rate and rhythm. Lungs are clinically clear to auscultation. No rales. Scattered rhonchi. Abdomen is soft, no organomegaly. Active bowel sounds. EXTREMITIES: Decreased pedal pulses. No pedal edema. RACK CARRIER examination grossly within normal limits. The patient's EKG shows normal sinus rhythm, normal ST-T waves. CT of the chest findings based on the ER note. I do not have the report to look at, printed report not scanned. ASSESSMENT: 1. Hemoptysis, right upper lobe lung mass with paratracheal nodes. 2. Atherosclerotic heart disease, status post aortocoronary bypass, chronic atrial fibrillation, remaining in sinus rhythm at the present time. 3. Status post AICD single chamber. Will go ahead and hold the Eliquis along with aspirin and Plavix and institute some subQ heparin. Will see him as our services are needed in the future. Thanks again for this kind referral.
[2017-02-18 15:39] LABS: Basophils % (A) 0 %; CH 34.8; CHCM 32.8; Eosinophils # (A) 0.1 k/uL (0-0.7); Eosinophils % (A) 0 %; HCT 29.7 % (39.0-53.0); HDW 2.62; HGB 9.7 gm/dL (13.0-17.5); Luc # (Auto) 0.08; Luc % (Auto) 1; Lymphocytes # (A) 0.7 k/uL (1.0-4.8); Lymphocytes % (A) 4 %; MCH 34.8 pg (25.0-35.0); MCHC 32.8 g/dL (31.0-37.0); MCV 106.3 fL (80.0-100.0); Macrocytosis Moderate; Mean Platelet Volume 7.9; Monocytes # (A) 0.7 k/uL (0-1.0); Monocytes % (A) 4 %; Neutrophils # (A) 15.4 k/uL (1.3-7.7); Neutrophils % (A) 91 %; RBC 2.79 m/uL (4.30-5.90); RDW 13.4 % (11.5-15.5); WBC 16.9 k/uL (3.8-10.6); WBC (Perox) 17.48
[2017-02-18 15:49] LABS: Anion Gap 13 mmol/L; Blood Urea Nitrogen 31 mg/dL (9-20); Calcium 9.7 mg/dL (8.4-10.2); Carbon Dioxide 16 mmol/L (22-30); Chloride 109 mmol/L (98-107); Glucose 166 mg/dL (74-99); Non-African American GFR(MDRD) 58 (>60 ml/min/1.73 sqM); Potassium 4.7 mmol/L (3.5-5.1); Sodium 138 mmol/L (137-145)
[2017-02-18] MEDS: LEVOFLOXACIN 750MG-D5W PMX 750 MG in DEXTROSE/WATER 1 150ML.BAG IVPB SCH (16:04)
[2017-02-18 16:55] LABS: Glucose,Whole Blood 205 mg/dL (75-99)
[2017-02-18] MEDS: PANTOPRAZOLE 40 MG TABLET PO SCH (17:19)
[2017-02-18] MEDS ORDERED: INSULIN LISPRO (humaLOG) 300 UNIT/3 ML VIAL SQ SCH (17:30)
[2017-02-18] MEDS: INSULIN LISPRO (humaLOG) 300 UNIT/3 ML VIAL SQ SCH ×2 (17:39→20:51)
[2017-02-18 20:22] LABS: Hemoglobin A1C 6.2 % (4.2-6.1)
[2017-02-18 20:47] LABS: Glucose,Whole Blood 159 mg/dL (75-99)
[2017-02-18] MEDS: LISINOPRIL 2.5 MG TAB PO SCH (20:50)
[2017-02-18] MEDS: HEPARIN SODIUM,PORCINE 5,000 UNIT/ML 1 ML VIAL SQ SCH (20:56)
[2017-02-18 22:55] LABS: Basophils % (A) 0 %; CH 34.9; CHCM 33.1; Eosinophils # (A) 0.1 k/uL (0-0.7); Eosinophils % (A) 1 %; HCT 29.3 % (39.0-53.0); HDW 2.62; HGB 9.6 gm/dL (13.0-17.5); Luc # (Auto) 0.11; Luc % (Auto) 1; Lymphocytes # (A) 0.7 k/uL (1.0-4.8); Lymphocytes % (A) 4 %; MCH 34.7 pg (25.0-35.0); MCHC 32.8 g/dL (31.0-37.0); MCV 105.9 fL (80.0-100.0); Macrocytosis Moderate; Mean Platelet Volume 8.5; Monocytes # (A) 0.7 k/uL (0-1.0); Monocytes % (A) 4 %; Neutrophils # (A) 16.9 k/uL (1.3-7.7); Neutrophils % (A) 91 %; RBC 2.77 m/uL (4.30-5.90); RDW 13.3 % (11.5-15.5); WBC 18.5 k/uL (3.8-10.6); WBC (Perox) 19.56
[2017-02-19] MEDS: GABAPENTIN 400 MG CAP PO SCH ×4 (01:04→20:57)
[2017-02-19] MEDS: GABAPENTIN 100 MG CAP PO SCH ×2 (01:04→13:52)
[2017-02-19] MEDS: methylPREDNISolone SOD SUCCI 125 MG/2 ML VIAL IV SCH ×4 (01:04→16:42)
[2017-02-19] MEDS: VITAMIN E (DL,TOCOPHERYL ACET) 400 UNIT CAP PO SCH (01:05)
[2017-02-19] MEDS: ATORVASTATIN 80 MG TAB PO SCH (01:05)
[2017-02-19 06:05] LABS: Glucose,Whole Blood 163 mg/dL (75-99)
[2017-02-19] MEDS: INSULIN LISPRO (humaLOG) 300 UNIT/3 ML VIAL SQ SCH ×4 (06:23→21:02)
[2017-02-19 07:08] LABS: Basophils % (A) 0 %; CH 35.2; CHCM 33.9; Eosinophils % (A) 0 %; HDW 2.68; Luc # (Auto) 0.07; Luc % (Auto) 1; Lymphocytes # (A) 0.7 k/uL (1.0-4.8); Lymphocytes % (A) 5 %; MCH 34.7 pg (25.0-35.0); MCHC 33.3 g/dL (31.0-37.0); MCV 104.3 fL (80.0-100.0); Macrocytosis Slight; Monocytes # (A) 0.6 k/uL (0-1.0); Monocytes % (A) 4 %; Neutrophils # (A) 13.8 k/uL (1.3-7.7); Neutrophils % (A) 91 %; RBC 2.59 m/uL (4.30-5.90); RDW 13.1 % (11.5-15.5); WBC 15.2 k/uL (3.8-10.6); WBC (Perox) 15.27
[2017-02-19 07:22] LABS: Anion Gap 13 mmol/L; Blood Urea Nitrogen 32 mg/dL (9-20); Calcium 9.9 mg/dL (8.4-10.2); Carbon Dioxide 18 mmol/L (22-30); Chloride 109 mmol/L (98-107); Glucose 139 mg/dL (74-99); Non-African American GFR(MDRD) 55 (>60 ml/min/1.73 sqM); Potassium 4.9 mmol/L (3.5-5.1); Sodium 140 mmol/L (137-145)
[2017-02-19] MEDS: SODIUM CHLORIDE 0.9% 1,000 ML IV SCH ×2 (07:57→16:43)
[2017-02-19] MEDS: OXYBUTYNIN CHLORIDE 5 MG TAB PO SCH ×4 (07:57→20:57)
[2017-02-19] MEDS: POLYETHYLENE GLYCOL 3350 17 GM POWD.PACK PO SCH (07:58)
[2017-02-19] MEDS: MULTIVITAMINS, THERA 1 EACH TAB PO SCH (07:58)
[2017-02-19] MEDS: HEPARIN SODIUM,PORCINE 5,000 UNIT/ML 1 ML VIAL SQ SCH ×2 (07:59→20:58)
[2017-02-19 11:51] LABS: Glucose,Whole Blood 162 mg/dL (75-99)
[2017-02-19] MEDS ORDERED: LIDOCAINE 1% INJ 10MG/ML (20 ML MDV) ONE (12:11)
[2017-02-19] MEDS ORDERED: MIDAZOLAM 2 MG/2 ML VIAL ONE (12:11)
[2017-02-19] MEDS ORDERED: PROPOFOL 10 MG/ML 20 ML VIAL IV ONE (12:11)
[2017-02-19] MEDS ORDERED: IV FLUID CONTINUATION 1,000 ML IV ONE (12:11)
--- NOTE | 2017-02-19 12:11 | P.PN ---
Subjective Principal diagnosis: Hemoptysis Patient is a 76-year-old male, patient of Dr. Mulligan in the outpatient setting, with medical history significant for paroxysmal atrial fibrillation, GERD, hyperlipidemia, hypertension, coronary artery disease status post coronary artery bypass grafting in 2014 followed by stenting to the left SFA in August 2015, myocardial infarction, ischemic cardiomyopathy status post placement of internal cardiac defibrillator, prostate cancer status post prostatectomy in 1998, peripheral vascular disease status post stent placement to left lower extremity, osteoarthritis, severe peripheral neuropathy, and remote nicotine dependence. Patient presented via EMS to the emergency department when he was transferred from [facility] for hemoptysis and mild shortness of breath. Patient apparently has had intermittent hemoptysis over the last couple years but increased significantly at 5 AM on the morning of admission. 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 Admission labs with evidence of anemia and thrombocytopenia. Patient was admitted to the medical floor on cardiac monitoring, started on IV antibiotics in the form of Levaquin, and consults were requested for Dr. Sol for pulmonology service and cardiology recommendations for anticoagulation. Patient is currently awaiting bronchoscopy with cytology which is scheduled for this afternoon. Patient is evaluated on selective care unit he is currently lying in bed with daughter at bedside. Patient states that hemoptysis is subsided significantly from yesterday. Patient denies increased shortness of breath. Patient denies lightheadedness or dizziness. Denies chest pain or abdominal pain. Patient hemodynamically stable. Objective - Vital Signs Vital signs: Vital Signs Temp 97.2 F L 02/19/17 08:00 Pulse 68 02/19/17 11:36 Resp 17 02/19/17 11:36 BP 118/76 02/19/17 11:36 Pulse Ox 94 L 02/19/17 11:36 Intake & Output 02/18/17 02/19/17 02/19/17 18:59 06:59 18:59 Intake Total 1160 900 Output Total 300 500 Balance 1160 600 -500 Weight 94.5 kg 94.3 kg Intake: Intake, IV Titration 800 900 Amount Sodium Chloride 0.9% 1, 800 900 000 ml @ 100 mls/hr IV . Q10H ERNESTO Rx#:[id number] Oral 360 Output: Urine 300 500 Other: Voiding Method Toilet Toilet # Voids 3 1 1 # Bowel Movements 1 - Exam GENERAL: Pt awake and alert, well-nourished, appears in no acute distress. HEAD: Atraumatic, normocephalic. EYES: Pupils equal, round, and reactive to light, extraocular movements intact, sclera anicteric, conjunctiva are normal. ENT: Moist mucous membranes. NECK:Supple without lymphadenopathy or JVD. LUNGS: Breath sounds diminished to right upper lobe with few rhonchi. HEART: Heart S1, S2, no S3 or S4. Regular rate and rhythm. Systolic murmur. ABDOMEN: Soft, obese, nontender, nondistended, normoactive bowel sounds. No guarding, no rebound. No masses or organomegaly appreciated. EXTREMITIES: 1+ peripheral pulses. Trace peripheral edema. No calf tenderness. NEUROLOGICAL: Pt oriented x 3. No focal deficits noted. Decreased sensation to bilateral lower extremities. PSYCH: Normal mood, normal affect. SKIN: Warm, dry, intact. Normal turgor. No rashes or lesions. - Labs CBC & Chem 7: 02/19/17 06:26 02/19/17 06:26 Labs: Abnormal Lab Results - Last 24 Hours (Table) 02/18/17 02/18/17 02/18/17 Range/Units 10:51 15:21 15:21 WBC 18.5 H 16.9 H (3.8-10.6) k/uL RBC 2.77 L 2.79 L (4.30-5.90) m/uL Hgb 9.6 L 9.7 L (13.0-17.5) gm/dL Hct 29.3 L 29.7 L (39.0-53.0) % MCV 105.9 H 106.3 H (80.0-100.0) fL Plt Count 145 L (150-450) k/uL Neutrophils # 16.9 H 15.4 H (1.3-7.7) k/uL Lymphocytes # 0.7 L 0.7 L (1.0-4.8) k/uL Chloride 109 H (98-107) mmol/L Carbon Dioxide 16 L (22-30) mmol/L BUN 31 H (9-20) mg/dL Creatinine (0.66-1.25) mg/dL Glucose 166 H (74-99) mg/dL POC Glucose (mg/dL) (75-99) mg/dL Hemoglobin A1c (4.2-6.1) % 02/18/17 02/18/17 02/18/17 Range/Units 15:21 16:25 20:34 WBC (3.8-10.6) k/uL RBC (4.30-5.90) m/uL Hgb (13.0-17.5) gm/dL Hct (39.0-53.0) % MCV (80.0-100.0) fL Plt Count (150-450) k/uL Neutrophils # (1.3-7.7) k/uL Lymphocytes # (1.0-4.8) k/uL Chloride (98-107) mmol/L Carbon Dioxide (22-30) mmol/L BUN (9-20) mg/dL Creatinine (0.66-1.25) mg/dL Glucose (74-99) mg/dL POC Glucose (mg/dL) 205 H 159 H (75-99) mg/dL Hemoglobin A1c 6.2 H (4.2-6.1) % 02/19/17 02/19/17 02/19/17 Range/Units 06:02 06:26 06:26 WBC 15.2 H (3.8-10.6) k/uL RBC 2.59 L (4.30-5.90) m/uL Hgb 9.0 L (13.0-17.5) gm/dL Hct 27.0 L (39.0-53.0) % MCV 104.3 H (80.0-100.0) fL Plt Count 134 L (150-450) k/uL Neutrophils # 13.8 H (1.3-7.7) k/uL Lymphocytes # 0.7 L (1.0-4.8) k/uL Chloride 109 H (98-107) mmol/L Carbon Dioxide 18 L (22-30) mmol/L BUN 32 H (9-20) mg/dL Creatinine 1.28 H (0.66-1.25) mg/dL Glucose 139 H (74-99) mg/dL POC Glucose (mg/dL) 163 H (75-99) mg/dL Hemoglobin A1c (4.2-6.1) % 02/19/17 Range/Units 11:38 WBC (3.8-10.6) k/uL RBC (4.30-5.90) m/uL Hgb (13.0-17.5) gm/dL Hct (39.0-53.0) % MCV (80.0-100.0) fL Plt Count (150-450) k/uL Neutrophils # (1.3-7.7) k/uL Lymphocytes # (1.0-4.8) k/uL Chloride (98-107) mmol/L Carbon Dioxide (22-30) mmol/L BUN (9-20) mg/dL Creatinine (0.66-1.25) mg/dL Glucose (74-99) mg/dL POC Glucose (mg/dL) 162 H (75-99) mg/dL Hemoglobin A1c (4.2-6.1) % Microbiology - Last 24 Hours (Table) 02/18/17 22:28 Sputum Culture - Preliminary Sputum Assessment and Plan Plan: Impression: 1. Mild shortness of breath with hemoptysis suspect secondary to right upper lobe mass suspicious for carcinoma. 2. Anemia suspect secondary to hemoptysis with history of iron deficiency and vitamin B12 deficiency. 3. Thrombocytopenia, present on admission. 4. Paroxysmal atrial fibrillation maintained on Eliquis in the outpatient setting. 5. Hyperlipidemia. 6. Hypertension. 7. History of ischemic cardiomyopathy status post ICD placement. 8. Coronary artery disease status post coronary artery bypass grafting followed by stenting. 9. History of prostate cancer status post prostatectomy. 10. History of GERD. 11. Severe peripheral vascular disease status post stenting to right lower extremity. 12. Severe peripheral neuropathy. 13. Osteoarthritis. 14. History of anxiety and depression, stable. 15. History of nicotine dependence. Plan: Continue to monitor patient. Continue nothing by mouth until scheduled bronchoscopy with cytology this afternoon. Continue IV fluids at 100 mL an hour. Continue to hold aspirin, Plavix, and Eliquis for hemoptysis and pending bronchoscopy at this time. Continue bronchodilators and systemic steroids. Continue to follow with cardiology and pulmonology, notes and orders reviewed. Maintain aspiration precautions. Continue IV antibiotics for empiric coverage. Continue GI and DVT prophylaxis. We'll repeat a CBC after bronchoscopy and labs in a.m. The above impression and plan have been discussed and directed by Dr. Mulligan. Carmel LACEY acting as scribe for Dr. Mulligan.
[2017-02-19] MEDS ORDERED: SODIUM CHLORIDE 0.9% 1,000 ML IV ONE (12:33)
[2017-02-19] MEDS ORDERED: LIDOCAINE 2% INJ 20 MG/ML INTRATRACH ONE (12:42)
--- NOTE | 2017-02-19 12:49 | P.PN ---
Subjective This is a very pleasant 76-year-old gentleman who follows with Dr. Mulligan as his primary care physician. He has a history of atrial fibrillation, myocardial infarction, coronary artery disease status post coronary artery bypass grafting, ischemic cardiomyopathy status post AICD placement less than one month ago, hyperlipidemia, hypertension, prostate cancer status post prostatectomy. The patient has been maintained on aspirin and Plavix and Eliquis. He does have a significant [id number] smoking history though states he had quit on and off throughout those years. He did quit altogether in 2014. He presented here to the emergency room yesterday from [facility] following complaints of hemoptysis. He's been coughing up quite a bit of bright red and occasional dark blood clots. A computed tomography scan of the chest revealed a 2.1 cm right upper lobe peripheral mass with significant volume loss in the right upper lobe due to a large amount of right hilar adenopathy. We are consulted for the same. The patient is seen today in the regular medical floor. He continues to have a fair amount of hemoptysis. His Plavix aspirin and Eliquis are now on hold. He is on heparin subcutaneous for DVT prophylaxis. He denies any worsening shortness of breath. He is maintaining O2 saturations in the mid 90s on room air. He has been hemodynamically stable. Afebrile. Current hemoglobin 10.4. Platelet count 135 ,000. Hepatitis B and C were negative. HIV is negative. The patient is seen again today 02/19/2017 in follow-up in the bronchoscopy suite. He is awake and alert in no acute distress. He is breathing easier today as compared to yesterday. The amount of his hemoptysis has settled down and much less compared to yesterday. He denies any worsening shortness of breath. He is still dyspneic on minimal exertion. He is maintaining O2 saturations in the mid 90s on room air. He remains afebrile. Hemoglobin remains stable at 9.0. Objective - Vital Signs Vital signs: Vital Signs Temp 97.2 F L 02/19/17 08:00 Pulse 68 02/19/17 11:36 Resp 17 02/19/17 11:36 BP 118/76 02/19/17 11:36 Pulse Ox 94 L 02/19/17 11:36 Intake & Output 02/18/17 02/19/17 02/19/17 18:59 06:59 18:59 Intake Total 1160 900 150 Output Total 300 500 Balance 1160 600 -350 Weight 94.5 kg 94.3 kg Intake: IV 150 Intake, IV Titration 800 900 Amount Sodium Chloride 0.9% 1, 800 900 000 ml @ 100 mls/hr IV . Q10H [facility] Rx#:[id number] Oral 360 Output: Urine 300 500 Other: Voiding Method Toilet Toilet # Voids 3 1 1 # Bowel Movements 1 - Exam GENERAL EXAM: Alert, comfortable in no apparent distress. HEAD: Normocephalic. EYES: Normal reaction of pupils, equal size. NOSE: Clear with pink turbinates. THROAT: No erythema or exudates. NECK: No masses, no JVD. CHEST: No chest wall deformity. LUNGS: Equal air entry with scattered rhonchi more so on the left lung. Diminished.. CVS: S1 and S2 normal with no audible murmurs, regular rhythm. ABDOMEN: No hepatosplenomegaly, normal bowel sounds, no guarding or rigidity. SPINE: No scoliosis or deformity SKIN: No rashes CENTRAL NERVOUS SYSTEM: No focal deficits, tone is normal in all 4 extremities. - Labs CBC & Chem 7: 02/19/17 06:26 02/19/17 06:26 Labs: Abnormal Lab Results - Last 24 Hours (Table) 02/18/17 02/18/17 02/18/17 Range/Units 10:51 15:21 15:21 WBC 18.5 H 16.9 H (3.8-10.6) k/uL RBC 2.77 L 2.79 L (4.30-5.90) m/uL Hgb 9.6 L 9.7 L (13.0-17.5) gm/dL Hct 29.3 L 29.7 L (39.0-53.0) % MCV 105.9 H 106.3 H (80.0-100.0) fL Plt Count 145 L (150-450) k/uL Neutrophils # 16.9 H 15.4 H (1.3-7.7) k/uL Lymphocytes # 0.7 L 0.7 L (1.0-4.8) k/uL Chloride 109 H (98-107) mmol/L Carbon Dioxide 16 L (22-30) mmol/L BUN 31 H (9-20) mg/dL Creatinine (0.66-1.25) mg/dL Glucose 166 H (74-99) mg/dL POC Glucose (mg/dL) (75-99) mg/dL Hemoglobin A1c (4.2-6.1) % 02/18/17 02/18/17 02/18/17 Range/Units 15:21 16:25 20:34 WBC (3.8-10.6) k/uL RBC (4.30-5.90) m/uL Hgb (13.0-17.5) gm/dL Hct (39.0-53.0) % MCV (80.0-100.0) fL Plt Count (150-450) k/uL Neutrophils # (1.3-7.7) k/uL Lymphocytes # (1.0-4.8) k/uL Chloride (98-107) mmol/L Carbon Dioxide (22-30) mmol/L BUN (9-20) mg/dL Creatinine (0.66-1.25) mg/dL Glucose (74-99) mg/dL POC Glucose (mg/dL) 205 H 159 H (75-99) mg/dL Hemoglobin A1c 6.2 H (4.2-6.1) % 02/19/17 02/19/17 02/19/17 Range/Units 06:02 06:26 06:26 WBC 15.2 H (3.8-10.6) k/uL RBC 2.59 L (4.30-5.90) m/uL Hgb 9.0 L (13.0-17.5) gm/dL Hct 27.0 L (39.0-53.0) % MCV 104.3 H (80.0-100.0) fL Plt Count 134 L (150-450) k/uL Neutrophils # 13.8 H (1.3-7.7) k/uL Lymphocytes # 0.7 L (1.0-4.8) k/uL Chloride 109 H (98-107) mmol/L Carbon Dioxide 18 L (22-30) mmol/L BUN 32 H (9-20) mg/dL Creatinine 1.28 H (0.66-1.25) mg/dL Glucose 139 H (74-99) mg/dL POC Glucose (mg/dL) 163 H (75-99) mg/dL Hemoglobin A1c (4.2-6.1) % 02/19/17 Range/Units 11:38 WBC (3.8-10.6) k/uL RBC (4.30-5.90) m/uL Hgb (13.0-17.5) gm/dL Hct (39.0-53.0) % MCV (80.0-100.0) fL Plt Count (150-450) k/uL Neutrophils # (1.3-7.7) k/uL Lymphocytes # (1.0-4.8) k/uL Chloride (98-107) mmol/L Carbon Dioxide (22-30) mmol/L BUN (9-20) mg/dL Creatinine (0.66-1.25) mg/dL Glucose (74-99) mg/dL POC Glucose (mg/dL) 162 H (75-99) mg/dL Hemoglobin A1c (4.2-6.1) % Microbiology - Last 24 Hours (Table) 02/18/17 22:28 Sputum Culture - Preliminary Sputum Assessment and Plan Plan: Impression: #1 Hemoptysis secondary to suspected bronchogenic carcinoma with a 2.1 cm mass in the right upper lobe. The patient had been anticoagulated with aspirin, Plavix and Eliquis. #2 History of 50+ pack year smoking, quit in 2014. #3 Ischemic cardiomyopathy status post AICD placement on 01/23/2017. Chest x- ray at that time showed no acute process. No evidence of right upper lobe mass or right hilar adenopathy. #4 Coronary artery disease with previous coronary artery bypass grafting. #5 Atrial fibrillation and is anticoagulated with Eliquis. #6 Peripheral vascular disease with previous stent to the left SFA. Currently on aspirin and Plavix. #7 Hyperlipidemia. #8 Anxiety/depression. #9 Hypertension. #10 History of prostate cancer status post prostatectomy. Plan: The patient was seen and evaluated by Dr. Sol. We did go ahead and perform a bronchoscopy on the patient. He had an obstructing right upper lobe lesion. We performed biopsies, brushings and washings. We had pathology at the bedside who feels the brushings were multiple small cell lung cancer. The patient tolerated the procedure well. He'll be returned to his room. We'll await final pathology reports. We had discussions with the family postoperatively. Based on the obstruction lesion we will consult radiation oncology along with oncology. We will continue to follow.
[2017-02-19] MEDS: SPIRONOLACTONE 25 MG TAB PO SCH (13:50)
[2017-02-19] MEDS: METOPROLOL TARTRATE 50 MG TAB PO SCH ×2 (13:51→20:57)
[2017-02-19] MEDS: FERROUS SULFATE 325 MG TAB PO SCH (13:51)
[2017-02-19] MEDS: DOCUSATE 100 MG CAP PO SCH (13:52)
[2017-02-19] MEDS: CHOLECALCIFEROL 1,000 UNIT TAB PO SCH (13:52)
[2017-02-19] MEDS: PYRIDOXINE 50 MG TAB PO SCH (13:53)
--- NOTE | 2017-02-19 13:57 | CDI ---
In responding to this query, please exercise your independent professional judgment. The [facility] Coding Staff and Clinical Documentation Specialists appreciate your assistance in clarifying documentation, maintaining compliance with coding guidelines, accurately documenting patients condition and capturing severity of illness. The fact that a question is asked does not imply that any particular answer is desired or expected. Communication forms are a method of clarifying documentation and are not made part of the Legal Health Record. Thank you in advance for your clarification. Last Revision, September [address] [place] [address] Documentation Clarification Form Date: 02/19/2017 1:21:00 PM From: Barbara Richard RN, CCDS Admit Date: 02/17/2017 7:24:00 PM Patient Name: Yves Reinoso Visit Number: [id number] Dr. Portillo Sol/Nga Mathews CNP History/Risk Factors: Chronic paroxysmal atrial fib, CABG, Ischemic cardiomyopathy Chief Complaint of SOB and hemoptysis Present or past smoker/PPD: 50+ pack yr. history Clinical Indicators: Vital Signs/Pulse Oximetry: Temp 97.1, HR 76, RR 18, B/P 147/87, Spo2 98% ra 02/18 H&P Lung and Respiratory Assessment: "LUNGS: Breath sounds diminished to right upper lobe with few rhonchi." 02/18 Pulmonary Consult: "A computed tomography scan of the chest revealed a 2.1 cm right upper lobe peripheral mass with significant volume loss in the right upper lobe due to a large amount of right hilar adenopathy. Treatment: 02/18 Pulmonary Consult: "We are suspicious for bronchogenic carcinoma. We'll plan for bronchoscopy and biopsy of the right upper lobe mass tomorrow." Nebulizers: Duoneb Q 4 hrs PRN Steroids: Solumedrol 125mg IVP followed by 60mg IVP Q 6 hrs O2 - liters: Room air Antibiotics: Levaquin 750 mg IVPB Q 24 hrs In your professional opinion, can you please clarify if the above findings and treatment signify any of the following? Acute Exacerbation of Chronic Obstructive Pulmonary Disease (COPD) Acute on Chronic Obstructive Asthma Acute on chronic bronchitis Chronic obstructive pulmonary disease with acute lower respiratory infection Emphysema Unable to determine Other condition, please specify Please document in your progress notes and discharge summary in order to capture severity of illness and risk of mortality. Include clinical findings that support your diagnosis. FYI: Press F11 to launch patient chart. Place X here if this finding has no clinical significance, is not applicable or if you are not able to provide any additional documentation. HEATHER
--- NOTE | 2017-02-19 15:28 | P.PN ---
Subjective Principal diagnosis: hemoptysis this is a 76-year-old patient who failed follows regularly with Dr. Yost in the office. He has known history of coronary artery disease with prior bypass surgery in August 2015. Patient also recently was in the hospital with atrial fibrillation and underwent cardioversion. He has an ejection fraction of 30-35%. He underwent implantation of an AICD by Dr. Zhu in January of this year. In August 2015 patient also had an SFA stents. He had been on Eliquis and Plavix as an outpatient. Came into the hospital with symptoms of hemoptysis.Eliquis and Plavix are currently on hold, patient is currently on subcu heparin.he continues to have hemoptysis today.White blood cell count 15.2, hemoglobin 9, potassium 4.9, BUN 32, creatinine 1.2.a CT of the chest was performed which revealed a 2.1 cm right upper lobe peripheral mass. Being followed by pulmonary for this. Patient did undergo bronchoscopy. Objective - Vital Signs Vital signs: Vital Signs Temp 97.2 F L 02/19/17 08:00 Pulse 68 02/19/17 11:36 Resp 17 02/19/17 11:36 BP 118/76 02/19/17 11:36 Pulse Ox 94 L 02/19/17 11:36 Intake & Output 02/18/17 02/19/17 02/19/17 18:59 06:59 18:59 Intake Total 4042 828 2579 Output Total 300 500 Balance 1160 600 500 Weight 94.5 kg 94.3 kg Intake: IV 200 Intake, IV Titration 800 900 800 Amount Sodium Chloride 0.9% 1, 800 900 800 000 ml @ 100 mls/hr IV . Q10H [facility] Rx#:[id number] Oral 360 Output: Urine 300 500 Other: Voiding Method Toilet Toilet # Voids 3 1 1 # Bowel Movements 1 - Exam PHYSICAL EXAMINATION: HEENT: [Head is atraumatic, normocephalic. Pupils equal, round. Neck is supple. There is no elevated jugular venous pressure.] HEART EXAMINATION: [Heart S1, S2 normal. No murmur or gallop heard.] CHEST EXAMINATION:lungs reveal diminished air entry bilaterally with scattered rhonchi throughout. ABDOMEN: [ Soft, nontender. Bowel sounds are heard. No organomegaly noted]. EXTREMITIES:[ 2+ peripheral pulses with no evidence of peripheral edema and no calf tenderness noted]. NEUROLOGIC [patient is awake, alert and oriented -3.] . - Labs CBC & Chem 7: 02/19/17 06:26 02/19/17 06:26 Labs: Abnormal Lab Results - Last 24 Hours (Table) 02/18/17 02/18/17 02/18/17 Range/Units 10:51 15:21 15:21 WBC 18.5 H 16.9 H (3.8-10.6) k/uL RBC 2.77 L 2.79 L (4.30-5.90) m/uL Hgb 9.6 L 9.7 L (13.0-17.5) gm/dL Hct 29.3 L 29.7 L (39.0-53.0) % MCV 105.9 H 106.3 H (80.0-100.0) fL Plt Count 145 L (150-450) k/uL Neutrophils # 16.9 H 15.4 H (1.3-7.7) k/uL Lymphocytes # 0.7 L 0.7 L (1.0-4.8) k/uL Chloride 109 H (98-107) mmol/L Carbon Dioxide 16 L (22-30) mmol/L BUN 31 H (9-20) mg/dL Creatinine (0.66-1.25) mg/dL Glucose 166 H (74-99) mg/dL POC Glucose (mg/dL) (75-99) mg/dL Hemoglobin A1c (4.2-6.1) % 02/18/17 02/18/17 02/18/17 Range/Units 15:21 16:25 20:34 WBC (3.8-10.6) k/uL RBC (4.30-5.90) m/uL Hgb (13.0-17.5) gm/dL Hct (39.0-53.0) % MCV (80.0-100.0) fL Plt Count (150-450) k/uL Neutrophils # (1.3-7.7) k/uL Lymphocytes # (1.0-4.8) k/uL Chloride (98-107) mmol/L Carbon Dioxide (22-30) mmol/L BUN (9-20) mg/dL Creatinine (0.66-1.25) mg/dL Glucose (74-99) mg/dL POC Glucose (mg/dL) 205 H 159 H (75-99) mg/dL Hemoglobin A1c 6.2 H (4.2-6.1) % 02/19/17 02/19/17 02/19/17 Range/Units 06:02 06:26 06:26 WBC 15.2 H (3.8-10.6) k/uL RBC 2.59 L (4.30-5.90) m/uL Hgb 9.0 L (13.0-17.5) gm/dL Hct 27.0 L (39.0-53.0) % MCV 104.3 H (80.0-100.0) fL Plt Count 134 L (150-450) k/uL Neutrophils # 13.8 H (1.3-7.7) k/uL Lymphocytes # 0.7 L (1.0-4.8) k/uL Chloride 109 H (98-107) mmol/L Carbon Dioxide 18 L (22-30) mmol/L BUN 32 H (9-20) mg/dL Creatinine 1.28 H (0.66-1.25) mg/dL Glucose 139 H (74-99) mg/dL POC Glucose (mg/dL) 163 H (75-99) mg/dL Hemoglobin A1c (4.2-6.1) % 02/19/17 Range/Units 11:38 WBC (3.8-10.6) k/uL RBC (4.30-5.90) m/uL Hgb (13.0-17.5) gm/dL Hct (39.0-53.0) % MCV (80.0-100.0) fL Plt Count (150-450) k/uL Neutrophils # (1.3-7.7) k/uL Lymphocytes # (1.0-4.8) k/uL Chloride (98-107) mmol/L Carbon Dioxide (22-30) mmol/L BUN (9-20) mg/dL Creatinine (0.66-1.25) mg/dL Glucose (74-99) mg/dL POC Glucose (mg/dL) 162 H (75-99) mg/dL Hemoglobin A1c (4.2-6.1) % Microbiology - Last 24 Hours (Table) 02/18/17 22:28 Sputum Culture - Preliminary Sputum Assessment and Plan (1) Hx of CABG Status: Acute (2) Hemoptysis Status: Acute (3) Hypertension Status: Acute (4) Mass of upper lobe of right lung Status: Acute (5) AF (paroxysmal atrial fibrillation) Status: Acute (6) Anemia Status: Acute (7) HTN (hypertension) Status: Acute (8) History of placement of internal cardiac defibrillator Status: Acute (9) Hyperlipemia Status: Acute (10) Ischemic cardiomyopathy Status: Acute (11) Nicotine dependence Status: Acute Plan: from cardiology's perspective, his peripheral stenting was in August 2015, therefore he safely could be off his Plavix at this time. Patient is aware of his risk for stroke being off of Eliquis. He is currently on subcu heparin. We will follow him along with you now on an as-needed basis only, please don't hesitate to call with any questions. DNP note has been reviewed, I agree with a documented findings and plan of care. Patient was seen and examined.
[2017-02-19 16:01] LABS: Basophils % (A) 0 %; CH 34.8; CHCM 32.6; Eosinophils % (A) 0 %; HDW 2.53; HGB 9.3 gm/dL (13.0-17.5); Luc # (Auto) 0.04; Luc % (Auto) 0; Lymphocytes # (A) 0.8 k/uL (1.0-4.8); Lymphocytes % (A) 5 %; MCH 34.5 pg (25.0-35.0); MCHC 32.2 g/dL (31.0-37.0); MCV 107.3 fL (80.0-100.0); Macrocytosis Moderate; Monocytes # (A) 0.5 k/uL (0-1.0); Monocytes % (A) 3 %; Neutrophils % (A) 92 %; RDW 13.5 % (11.5-15.5); WBC 16.4 k/uL (3.8-10.6); WBC (Perox) 16.71
[2017-02-19 16:35] LABS: Glucose,Whole Blood 199 mg/dL (75-99)
[2017-02-19] MEDS: LEVOFLOXACIN 750MG-D5W PMX 750 MG in DEXTROSE/WATER 1 150ML.BAG IVPB SCH (16:41)
[2017-02-19] MEDS: PANTOPRAZOLE 40 MG TABLET PO SCH (16:42)
[2017-02-19 18:07] LABS: RBC, Body Fluid 42100 /uL
--- NOTE | 2017-02-19 19:11 | P.CONS ---
History of Present Illness - Reason for Consult Consult date: 02/19/17 suspect malignancy Requesting physician: Nga Mathews - Chief Complaint hemoptysis - History of Present Illness is an 76-year-old male with a significant history for cardiac disease. Patient was see at [facility] earlier this week for hemoptysis. The patient had imaging done with right hilar mass, spiculated mass in the right upper lobe near the pleura and possible lymphadenopathy. patient was transferred here. Patient has been seen by Dr. mills, bronchoscopy has been performed. Patient is also been seen by radiation oncology. Patient states a history of hemoptysis on and off probably for the past 8 or 9 years. It became severe on Friday with copious amounts of bright red blood. Patient had noticed difficulty in breathing and shortness of breath on exertion around Friday. He denies any weight loss or night sweats, he has no taste and has lost his appetite. Patient does have some right chest wall discomfort. He is currently denying any nausea, vomiting, palpitations, indigestion or heartburn, acute changes in bowel or bladder habits. Patient has noticed edema in his feet more recently, he does have neuropathy. Patient had a defibrillator placed about 1 month ago, he states an ejection fraction of 30%. Patient quit smoking in May 2015 with a greater than 50 year pack history of smoking. He states exposure to asbestos in the working environment in the 1960s. Patient had a prostatectomy in 1998 with persistent stress incontinence since that time. Review of Systems All systems: negative Constitutional: Reports as per HPI Past Medical History Past Medical History: Atrial Fibrillation, Cancer, GERD/Reflux, Hyperlipidemia, Hypertension, Myocardial Infarction (CT), Prostate Disorder Additional Past Medical History / Comment(s): prostate CA, neuropathy Last Myocardial Infarction Date:: 05/27/15 History of Any Multi-Drug Resistant Organisms: MRSA Year Discovered:: 09/2015 MDRO Source:: RIGHT TESTICLE Past Surgical History: Coronary Bypass/CABG, Joint Replacement, Prostate Surgery , Tonsillectomy Additional Past Surgical History / Comment(s): left thumb surgery., CABG (), BALLOON ANGIOPLASTY W/ STENT TO LT SFA (08/16/15), lt total knee, prostatectomy, 01/23/17 ICD Past Anesthesia/Blood Transfusion Reactions: No Reported Reaction Past Psychological History: Anxiety, Depression Additional Psychological History / Comment(s): TAKES NO MEDICATION Smoking Status: Former smoker Past Alcohol Use History: Occasional Additional Past Alcohol Use History / Comment(s): STARTED SMOKING AT AGE 15 QUIT SMOKING 2014 SMOKED 1 -1 1/2PPD Past Drug Use History: None Reported - Past Family History Father History Unknown: Yes Family Medical History: No Reported History Additional Family Medical History / Comment(s): young Mother Family Medical History: No Reported History Additional Family Medical History / Comment(s): young Medications and Allergies Home Medications Medication Instructions Recorded Confirmed Type Omeprazole [PriLOSEC] 40 mg PO AC-SUPPER 05/26/15 02/17/17 History Atorvastatin [Lipitor] 80 mg PO HS@0200 08/15/15 02/17/17 History Cholecalciferol [Vitamin D3] 1,000 unit PO DAILY@1400 12/19/15 02/17/17 History Ferrous Sulfate [Iron (65 MG 325 mg PO DAILY@0800 12/19/15 02/17/17 History Elemental)] HYDROcodone/APAP 10-325MG [[place] 1 tab PO Q6H PRN 12/19/15 02/17/17 History 10-325] Oxybutynin Chloride [Ditropan] 5 mg PO QID 12/19/15 02/17/17 History Docusate [Colace] 300 mg PO DAILY@1400 01/01/16 02/17/17 History Apixaban [Eliquis] 2.5 mg PO BID@0800,199908/26/16 02/17/17 History Pyridoxine [Vitamin B-6] 100 mg PO DAILY@1400 08/26/16 02/17/17 History Vitamin E (Dl,Tocopheryl Acet) 400 unit PO HS@0200 08/26/16 02/17/17 History [Vitamin E] Lisinopril [Zestril] 2.5 mg PO DAILY@199901/23/17 02/17/17 History Aspirin EC [Ecotrin Low Dose] 81 mg PO HS@0200 02/17/17 02/17/17 History Clopidogrel [Plavix] 75 mg PO DAILY@0800 02/17/17 02/17/17 History Gabapentin [Neurontin] 100 mg PO BID@1400,0200 02/17/17 02/17/17 History Gabapentin [Neurontin] 400 mg PO QID 02/17/17 02/17/17 History Metoprolol Tartrate [Lopressor] 50 mg PO BID@0800,199902/17/17 02/17/17 History Multivitamins, Thera [Multivitamin 1 tab PO DAILY@0800 02/17/17 02/17/17 History (formulary)] Polyethylene Glycol 3350 [Miralax] 17 gm PO DAILY@0800 02/17/17 02/17/17 History Spironolactone [Aldactone] 25 mg PO DAILY@0800 02/17/17 02/17/17 History Allergies Allergy/AdvReac Type Severity Reaction Status Date / Time No Known Allergies Allergy Verified 02/17/17 18:22 Physical Exam Vitals: Vital Signs Temp Pulse Pulse Resp BP Pulse Ox 02/19/17 16:00 97.8 F 70 17 128/68 95 02/19/17 15:38 68 17 02/19/17 11:36 68 17 118/76 94 L 02/19/17 08:00 97.2 F L 70 18 98/54 92 L 02/19/17 07:54 18 02/19/17 04:00 97.9 F 75 18 150/67 96 02/19/17 00:00 57 L 18 131/70 95 02/18/17 20:08 72 02/18/17 20:00 97 F L 72 20 129/78 94 L 02/18/17 19:55 67 Intake and Output 02/19/17 02/19/17 02/19/17 06:59 14:59 22:59 Intake Total 900 1000 Output Total 300 500 Balance 600 500 Intake: IV 200 Intake, IV Titration 900 800 Amount Sodium Chloride 0.9% 1, 900 800 000 ml @ 100 mls/hr IV . Q10H [facility] Rx#:[id number] Output: Urine 300 500 Other: Voiding Method Toilet Toilet # Voids 1 1 Weight 94.3 kg - Constitutional General appearance: average body habitus, cooperative, no acute distress - EENT Eyes: anicteric sclerae ENT: normal oropharynx - Neck Neck: no lymphadenopathy - Respiratory Respiratory: left: diminished, rales - Cardiovascular Rhythm: regular Heart sounds: normal: S1, S2 foot Peripheral Edema: bilateral: 2+, Pitting - Gastrointestinal General gastrointestinal: no absent bowel sounds, no decreased bowel sounds, no distended, no hepatomegaly, no hyperactive bowel sounds, normal bowel sounds, no organomegaly, no rigid, no scaphoid, soft, no splenomegaly, no tenderness, no umbilical hernia, no ventral hernia - Integumentary Integumentary: pale - Neurologic Neurologic: CNII-XII intact - Musculoskeletal Musculoskeletal: strength equal bilaterally - Psychiatric Psychiatric: A&O x's 3, appropriate affect Results CBC & Chem 7: 02/19/17 15:38 02/19/17 06:26 Labs: Abnormal Lab Results - Last 24 Hours (Table) 02/18/17 02/18/17 02/18/17 Range/Units 10:51 15:21 20:34 WBC 18.5 H (3.8-10.6) k/uL RBC 2.77 L (4.30-5.90) m/uL Hgb 9.6 L (13.0-17.5) gm/dL Hct 29.3 L (39.0-53.0) % MCV 105.9 H (80.0-100.0) fL Plt Count (150-450) k/uL Neutrophils # 16.9 H (1.3-7.7) k/uL Lymphocytes # 0.7 L (1.0-4.8) k/uL Chloride (98-107) mmol/L Carbon Dioxide (22-30) mmol/L BUN (9-20) mg/dL Creatinine (0.66-1.25) mg/dL Glucose (74-99) mg/dL POC Glucose (mg/dL) 159 H (75-99) mg/dL Hemoglobin A1c 6.2 H (4.2-6.1) % 02/19/17 02/19/17 02/19/17 Range/Units 06:02 06:26 06:26 WBC 15.2 H (3.8-10.6) k/uL RBC 2.59 L (4.30-5.90) m/uL Hgb 9.0 L (13.0-17.5) gm/dL Hct 27.0 L (39.0-53.0) % MCV 104.3 H (80.0-100.0) fL Plt Count 134 L (150-450) k/uL Neutrophils # 13.8 H (1.3-7.7) k/uL Lymphocytes # 0.7 L (1.0-4.8) k/uL Chloride 109 H (98-107) mmol/L Carbon Dioxide 18 L (22-30) mmol/L BUN 32 H (9-20) mg/dL Creatinine 1.28 H (0.66-1.25) mg/dL Glucose 139 H (74-99) mg/dL POC Glucose (mg/dL) 163 H (75-99) mg/dL Hemoglobin A1c (4.2-6.1) % 02/19/17 02/19/17 02/19/17 Range/Units 11:38 15:38 16:31 WBC 16.4 H (3.8-10.6) k/uL RBC 2.70 L (4.30-5.90) m/uL Hgb 9.3 L (13.0-17.5) gm/dL Hct 29.0 L (39.0-53.0) % MCV 107.3 H (80.0-100.0) fL Plt Count 128 L (150-450) k/uL Neutrophils # 15.0 H (1.3-7.7) k/uL Lymphocytes # 0.8 L (1.0-4.8) k/uL Chloride (98-107) mmol/L Carbon Dioxide (22-30) mmol/L BUN (9-20) mg/dL Creatinine (0.66-1.25) mg/dL Glucose (74-99) mg/dL POC Glucose (mg/dL) 162 H 199 H (75-99) mg/dL Hemoglobin A1c (4.2-6.1) % Microbiology - Last 24 Hours (Table) 02/18/17 22:28 Sputum Culture - Preliminary Sputum Comments: CT chest report from [facility] reviewed Assessment and Plan (1) Mass of upper lobe of right lung Narrative/Plan: Patient is status post bronchoscopy with biopsy, pending pathology. Did have a long discussion with the patient and his daughters about the discussion that has been had with them about suspect small cell lung cancer. All of their questions were answered to the best of my ability at this time, further details regarding treatment modalities, treatment options and prognosis will be deferred until pathological diagnosis is obtained and full staging has been completed. Patient continues to have hemoptysis at this time, it does appear to be abating slightly in comparison with the photographs patient's daughter showed me from Friday. Will discuss the case with Dr. Gonzalez in the morning regarding radiation. Further imaging pending CBC and CMP in the a.m. Status: Acute (2) Anemia Narrative/Plan: Patient has been anemic for several years. Workup in 2014 was performed and it was felt that possibly the patient had an underlying MDS. It is also noted that patient's kidney function has been borderline, so there may be a component of chronic kidney disease contributing to the anemia as well. With patient admitting hemoptysis for several years we'll check iron studies at this time. Patient's hemoglobin has been stable, no need for transfusion at this time. Status: Chronic
[2017-02-19] MEDS: LISINOPRIL 2.5 MG TAB PO SCH (20:57)
[2017-02-19 21:17] LABS: Glucose,Whole Blood 146 mg/dL (75-99)
--- NOTE | 2017-02-19 22:35 | CONS ---
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 HISTORY OF PRESENT ILLNESS: This is a 76-year-old male patient who underwent further management for left-sided chest pain and associated cough with interval development of hemoptysis. A CT scan of the chest in February 2017 demonstrated a malignant mass in the right upper lobe measuring 2.1 cm. There was associated hilar lymphadenopathy consistent with a primary lung malignancy. Due to the imaging findings, Dr. Sol performed a bronchoscopy and biopsy on 02/19/2017. The findings showed that the patient had an obstructive mass in the left upper lobe bronchus as well as obstructive mass in the lingula. Biopsies were taken of these abnormal regions and the preliminary report was positive for small-cell carcinoma of lung origin. The patient has been managed for respiratory compromise with supportive care during this hospitalization. PAST MEDICAL HISTORY: Coronary artery disease, atrial fibrillation, gastroesophageal reflux, hyperlipidemia, hypertension, history of myocardial infarction, prostate cancer treated with prostatectomy in 1998, anxiety and depression. PAST SURGICAL HISTORY: Coronary artery bypass graft, joint replacement, prostatectomy in 1998, tonsillectomy, left thumb surgery, balloon angioplasty with stent in August 2015 and total knee replacement, defibrillator placement. SOCIAL HISTORY: The patient is a former smoker since age of 15, more than 20 pack-year history, recently discontinued. Occasional alcohol intake. FAMILY HISTORY: Noncontributory for carcinoma. MEDICATIONS: 1. Omeprazole. 2. Atorvastatin. 3. Ferrous sulfate. 4. Hydrocodone. 5. Oxybutynin. 6. Docusate. 7. Pyridoxine. 8. Vitamin D. 9. Lisinopril. 10. Albuterol. 11. Heparin. 12. Methylprednisolone. 13. Multivitamin. 14. Spironolactone. LABORATORY DATA: CBC from 02/19/2017 showed WBC of 15.2, hemoglobin 9.0, hematocrit 27.0, platelet count of 184,000. Basic metabolic profile shows sodium of 140, potassium 4.9, BUN elevated at 32, creatinine elevated at 1.28. Calcium 9.9. Glucose elevated at 163. REVIEW OF SYSTEMS: CONSTITUTIONAL: Positive for fatigue. Negative for fevers, chills, significant weight loss. HEENT: Negative for odynophagia or dysphagia, neck masses. RESPIRATORY: As per HPI. CARDIOVASCULAR: As per HPI. GASTROINTESTINAL: Negative for nausea, vomiting, hematochezia, hematemesis and stool incontinence. GENITOURINARY: Negative for hematuria, incontinence, obstructive uropathy. NEUROLOGIC: Negative for severe headaches, nausea, vomiting and seizure disorder, loss of consciousness, extremity weakness. PHYSICAL EXAM: Well-developed, well-nourished, elderly gentleman, sitting comfortably in bed, no acute distress. Performance status is good to fair. VITAL SIGNS: Temperature 97.2, pulse 70, respirations 18, blood pressure 98/54. HEENT: No scleral icterus. Oral cavity shows no mucosal lesions. NECK: Without palpable cervical, supraclavicular lymphadenopathy. CHEST: Clear to auscultation. There are no audible wheezes. HEART: Regular rate and rhythm. Defibrillator is in the left upper chest wall. ABDOMEN: Round, soft, nontender. There is no organomegaly or mass. EXTREMITIES: No edema. No cyanosis. NEUROLOGIC: He is alert and oriented x3. There are no gross deficits. Speech is fluent. Gait not assessed. Strength is within normal limits. Sensation is intact. 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 CT scan shows a right upper lobe mass measuring 2.1 cm with associated hiatal lymphadenopathy. Unfortunately, the patient has increased shortness of breath and hemoptysis secondary to malignant process. He is status post bronchoscopy today. Recommendations were discussed with the patient and his daughters regarding his diagnosis and further management. I discussed focused radiation therapy to the right lung in an attempt to help with hemoptysis. The patient will start radiation therapy treatment planning tomorrow, 02/20/2017 and receive his first treatment. The patient will continue radiation therapy as an outpatient basis. Furthermore, the patient will require outpatient staging workup, which includes PET scan and MRI of the brain. The patient will also undergo consultation with Medical Oncology as well. HEATHER
--- NOTE | 2017-02-19 23:45 | PCN ---
DATE OF PROCEDURE: PERFORMED BY: Portillo Sol DO and Dr. Nga Mathews. NURSE FILER REPAIRER: Nadya Sheriff CRNA. PROCEDURE: Bronchoscopy, airway examination, therapeutic lavage, BAL right upper lobe, endobronchial biopsies right upper lobe, brushes right upper lobe, pool cytology right upper lobe. There was informed consent. There was universal timeout. We actually had Pathology in the room. The procedure was done in Room #1 and it was done with unconscious sedation. After the patient was adequately sedated and being fully monitored, the bronchoscope was inserted through the right nostril. It passed through the right nasopharynx into the oropharynx. The hypopharynx was identified and evaluated. The anterior commissure, true cords, false cords, arytenoids, piriform sinuses, right and left valleculae and epiglottis all appeared normal. After the glottic opening was topicalized with lidocaine, the bronchoscope was pushed through the glottic opening into the trachea. Trachea appeared relatively normal. Tracheal lea was sharp. ( ) do the left side. Left upper lobe and its 2 segments, the lingula and its 2 segments, and the left lower lobe and its 4 segments all appeared normal. On the right side, the right middle lobe and its 2 segments and the right lower lobe and its 5 segments appeared normal. There was a large obstructing mass with adherent blood clot in the right upper lobe. The blood clot was suctioned away. Tissue mass was noted. Pictures were taken. Brushings, endobronchial biopsies and washes were done in this area under direct visualization. We did some additional brushes, then we had Pathology come to the room. Dr. Kapoor looked at the slide and thought that there was material there to make a diagnosis of probable small-cell cancer. Anyway, we will send the rest of the specimens to the laboratory for his review as well. After we ensured that there was hemostasis, the bronchoscope was withdrawn. There was no immediate complication.
[2017-02-20] MEDS: methylPREDNISolone SOD SUCCI 125 MG/2 ML VIAL IV SCH ×4 (01:11→12:37)
[2017-02-20] MEDS: GABAPENTIN 400 MG CAP PO SCH ×4 (01:11→20:24)
[2017-02-20] MEDS: VITAMIN E (DL,TOCOPHERYL ACET) 400 UNIT CAP PO SCH (01:11)
[2017-02-20] MEDS: GABAPENTIN 100 MG CAP PO SCH ×2 (01:12→12:37)
[2017-02-20] MEDS: ATORVASTATIN 80 MG TAB PO SCH (01:12)
[2017-02-20 06:41] LABS: Glucose,Whole Blood 143 mg/dL (75-99)
[2017-02-20 06:41] LABS: Basophils % (A) 0 %; CH 34.7; CHCM 32.8; Eosinophils % (A) 0 %; HCT 25.1 % (39.0-53.0); HDW 2.51; HGB 8.3 gm/dL (13.0-17.5); Luc # (Auto) 0.07; Luc % (Auto) 1; Lymphocytes # (A) 0.7 k/uL (1.0-4.8); Lymphocytes % (A) 6 %; MCH 35.3 pg (25.0-35.0); MCHC 33.3 g/dL (31.0-37.0); MCV 106.3 fL (80.0-100.0); Macrocytosis Moderate; Mean Platelet Volume 8.9; Monocytes # (A) 0.4 k/uL (0-1.0); Monocytes % (A) 4 %; Neutrophils # (A) 10.1 k/uL (1.3-7.7); Neutrophils % (A) 90 %; RBC 2.36 m/uL (4.30-5.90); RDW 13.6 % (11.5-15.5); WBC 11.3 k/uL (3.8-10.6); WBC (Perox) 11.93
[2017-02-20] MEDS: INSULIN LISPRO (humaLOG) 300 UNIT/3 ML VIAL SQ SCH ×4 (06:56→21:29)
[2017-02-20] MEDS: SODIUM CHLORIDE 0.9% 1,000 ML IV SCH (06:57)
[2017-02-20 07:11] LABS: Anion Gap 9 mmol/L; Blood Urea Nitrogen 34 mg/dL (9-20); Calcium 9.1 mg/dL (8.4-10.2); Carbon Dioxide 19 mmol/L (22-30); Chloride 114 mmol/L (98-107); Glucose 134 mg/dL (74-99); Non-African American GFR(MDRD) 54 (>60 ml/min/1.73 sqM); Potassium 4.6 mmol/L (3.5-5.1); Sodium 142 mmol/L (137-145)
[2017-02-20] MEDS: OXYBUTYNIN CHLORIDE 5 MG TAB PO SCH ×4 (08:34→20:24)
[2017-02-20] MEDS: MULTIVITAMINS, THERA 1 EACH TAB PO SCH (08:34)
[2017-02-20] MEDS: METOPROLOL TARTRATE 50 MG TAB PO SCH ×2 (08:34→20:27)
[2017-02-20] MEDS: HEPARIN SODIUM,PORCINE 5,000 UNIT/ML 1 ML VIAL SQ SCH ×2 (08:34→20:27)
[2017-02-20] MEDS: POLYETHYLENE GLYCOL 3350 17 GM POWD.PACK PO SCH (08:35)
[2017-02-20] MEDS: FERROUS SULFATE 325 MG TAB PO SCH (08:35)
[2017-02-20] MEDS: SPIRONOLACTONE 25 MG TAB PO SCH (08:36)
[2017-02-20 09:21] LABS: Iron 146 ug/dL (49-181)
[2017-02-20 09:31] LABS: % Iron Saturation 70.2 % (20-50); Total Iron Binding Capacity 208 ug/dL (261-462)
[2017-02-20 10:12] LABS: Vitamin B12 474 pg/mL
--- NOTE | 2017-02-20 10:31 | CDI ---
In responding to this query, please exercise your independent professional judgment. The [facility] Coding Staff and Clinical Documentation Specialists appreciate your assistance in clarifying documentation, maintaining compliance with coding guidelines, accurately documenting patients condition and capturing severity of illness. The fact that a question is asked does not imply that any particular answer is desired or expected. Communication forms are a method of clarifying documentation and are not made part of the Legal Health Record. Thank you in advance for your clarification. Last Revision, September 2015 Angélica Grace [address] [facility] [place] [address] Documentation Clarification Form Date: 02/20/2017 10:18:00 AM From: Barbara Richard RN, CCDS Admit Date: 02/17/2017 7:24:00 PM Patient Name: Yves Reinoso Visit Number: [id number] Dr. Husam Mulligan/Carmel Keene CNP History/Risk Factors: Anemia, HTN, PAD, CAD, CABG, Ischemic cardiomyopathy, Prostate ca Clinical Indicators: 02/19 Oncology Consult: "It is also noted that patient's kidney function has been borderline, so there may be a component of chronic kidney disease contributing to the anemia as well." Patients Baseline 08/01/15: BUN/CR/GFR: 20/1.34/52 Current BUN: 31/32/34 CR: 1.23/1.28/1.29 GFR: 58/55/54 Treatment: Patients medications include: Feosol 325 mg PO, Vitamin D3, Theragan, Vitamin b6, Vitamin E, Aldactone 25mg PO QD IVF: 500 Cc bolus followed by 100cc/hr In order to capture the severity of condition, please clarify if the condition signifies: CKD Stage 1 (GFR > 90) CKD Stage 2 (GFR 60-89) CKD Stage 3 (GFR 30-59) CKD Stage 4 (GFR 15-29) CKD Stage 5 (GFR <15) ESRD Unable to determine Other condition, please specify Please document in your progress notes and discharge summary in order to capture severity of illness and risk of mortality. Include clinical findings that support your diagnosis. FYI: Press F11 to launch patient chart. Place X here if this finding has no clinical significance, is not applicable or if you are not able to provide any additional documentation. MTDD
[2017-02-20] MEDS ORDERED: RX INFO: IV CONTRAST WAS GIVEN 1 EACH MISC MISCELLANE PRN (11:10)
[2017-02-20 11:19] LABS: Glucose,Whole Blood 152 mg/dL (75-99)
[2017-02-20] MEDS: PYRIDOXINE 50 MG TAB PO SCH (12:36)
[2017-02-20 12:41] LABS: Basophils % (A) 0 %; CH 35.1; CHCM 33.7; Eosinophils % (A) 0 %; HCT 26.1 % (39.0-53.0); HDW 2.65; Luc # (Auto) 0.09; Luc % (Auto) 1; Lymphocytes # (A) 0.8 k/uL (1.0-4.8); Lymphocytes % (A) 6 %; MCH 36.2 pg (25.0-35.0); MCHC 34.6 g/dL (31.0-37.0); MCV 104.7 fL (80.0-100.0); Macrocytosis Slight; Mean Platelet Volume 9.5; Monocytes # (A) 0.7 k/uL (0-1.0); Monocytes % (A) 5 %; Neutrophils # (A) 12.2 k/uL (1.3-7.7); Neutrophils % (A) 89 %; RDW 13.2 % (11.5-15.5); WBC 13.8 k/uL (3.8-10.6); WBC (Perox) 13.98
--- NOTE | 2017-02-20 14:02 | P.PN ---
Subjective Principal diagnosis: Probable small cell carcinoma. Patient is a 76-year-old male, patient of Dr. Mulligan in the outpatient setting, with medical history significant for paroxysmal atrial fibrillation, GERD, hyperlipidemia, hypertension, coronary artery disease status post coronary artery bypass grafting in 2014 followed by stenting to the left SFA in August 2015, myocardial infarction, ischemic cardiomyopathy status post placement of internal cardiac defibrillator, prostate cancer status post prostatectomy in 1998, peripheral vascular disease status post stent placement to left lower extremity, osteoarthritis, severe peripheral neuropathy, and remote nicotine dependence. Patient presented via EMS to the emergency department when he was transferred from [facility] for hemoptysis and mild shortness of breath. Patient apparently has had intermittent hemoptysis over the last couple years but increased significantly at 5 AM on the morning of admission. According to chart, CT chest obtained at [facility] did reveal a 2.1 cm right upper lobe mass with appearance consistent with primary neoplasm of lung. Admission labs with evidence of anemia and thrombocytopenia. Patient was admitted to the medical floor on cardiac monitoring, started on IV antibiotics in the form of Levaquin, and consults were requested for Dr. Sol for pulmonology service and cardiology recommendations for anticoagulation. Patient underwent bronchoscopy with BAL, brushings, and biopsies on 02/19/2017 by pulmonary service with preliminary pathology suspicious for small cell carcinoma. Radiation oncology and medical oncology has been consulted. Per notes, patient is scheduled to start radiation therapy today and will need outpatient staging workup including PET scan and MRI of the brain. Upon examination, patient continues to have hemoptysis but states it's less than when he originally was admitted to the hospital. Patient reports shortness of breath with ambulation. Denies chest pain or abdominal pain. Patient is urinating without difficulty. WBC increased to 13.8. Hemoglobin stable at 9. Oxygen saturation 95% on room air. Objective - Vital Signs Vital signs: Vital Signs Temp 96.9 F L 02/20/17 08:00 Pulse 61 02/20/17 08:00 Resp 16 02/20/17 08:00 BP 121/74 02/20/17 08:00 Pulse Ox 95 02/20/17 08:00 Intake & Output 02/19/17 02/20/17 02/20/17 18:59 06:59 18:59 Intake Total 1240 900 Output Total 500 Balance 740 900 Weight 94.8 kg Intake: IV 200 Intake, IV Titration 800 900 Amount Sodium Chloride 0.9% 1, 800 900 000 ml @ 100 mls/hr IV . Q10H [facility] Rx#:[id number] Oral 240 Output: Urine 500 Other: Voiding Method Toilet Toilet # Voids 1 1 - Exam GENERAL: Pt awake and alert, well-nourished, appears in no acute distress. HEAD: Atraumatic, normocephalic. EYES: Pupils equal, round, and reactive to light, extraocular movements intact, sclera anicteric, conjunctiva are normal. ENT: Moist mucous membranes. NECK:Supple without lymphadenopathy or JVD. LUNGS: Breath sounds diminished to right upper lobe with few rhonchi. HEART: Heart S1, S2, no S3 or S4. Regular rate and rhythm. Systolic murmur. ABDOMEN: Soft, obese, nontender, nondistended, normoactive bowel sounds. No guarding, no rebound. No masses or organomegaly appreciated. EXTREMITIES: 1+ peripheral pulses. Trace peripheral edema. No calf tenderness. NEUROLOGICAL: Pt oriented x 3. No focal deficits noted. Decreased sensation to bilateral lower extremities. PSYCH: Normal mood, normal affect. SKIN: Warm, dry, intact. Normal turgor. No rashes or lesions. - Labs CBC & Chem 7: 02/20/17 12:24 02/20/17 06:13 Labs: Abnormal Lab Results - Last 24 Hours (Table) 02/19/17 02/19/17 02/19/17 Range/Units 15:38 16:31 21:02 WBC 16.4 H (3.8-10.6) k/uL RBC 2.70 L (4.30-5.90) m/uL Hgb 9.3 L (13.0-17.5) gm/dL Hct 29.0 L (39.0-53.0) % MCV 107.3 H (80.0-100.0) fL MCH (25.0-35.0) pg Plt Count 128 L (150-450) k/uL Neutrophils # 15.0 H (1.3-7.7) k/uL Lymphocytes # 0.8 L (1.0-4.8) k/uL Chloride (98-107) mmol/L Carbon Dioxide (22-30) mmol/L BUN (9-20) mg/dL Creatinine (0.66-1.25) mg/dL Glucose (74-99) mg/dL POC Glucose (mg/dL) 199 H 146 H (75-99) mg/dL TIBC (261-462) ug/dL % Saturation (20-50) % 02/20/17 02/20/17 02/20/17 Range/Units 06:13 06:13 06:40 WBC 11.3 H (3.8-10.6) k/uL RBC 2.36 L (4.30-5.90) m/uL Hgb 8.3 L (13.0-17.5) gm/dL Hct 25.1 L (39.0-53.0) % MCV 106.3 H (80.0-100.0) fL MCH 35.3 H (25.0-35.0) pg Plt Count 106 L (150-450) k/uL Neutrophils # 10.1 H (1.3-7.7) k/uL Lymphocytes # 0.7 L (1.0-4.8) k/uL Chloride 114 H (98-107) mmol/L Carbon Dioxide 19 L (22-30) mmol/L BUN 34 H (9-20) mg/dL Creatinine 1.29 H (0.66-1.25) mg/dL Glucose 134 H (74-99) mg/dL POC Glucose (mg/dL) 143 H (75-99) mg/dL TIBC 208 L (261-462) ug/dL % Saturation 70.2 H (20-50) % 02/20/17 02/20/17 Range/Units 11:18 12:24 WBC 13.8 H (3.8-10.6) k/uL RBC 2.50 L (4.30-5.90) m/uL Hgb 9.0 L (13.0-17.5) gm/dL Hct 26.1 L (39.0-53.0) % MCV 104.7 H (80.0-100.0) fL MCH 36.2 H (25.0-35.0) pg Plt Count 107 L (150-450) k/uL Neutrophils # 12.2 H (1.3-7.7) k/uL Lymphocytes # 0.8 L (1.0-4.8) k/uL Chloride (98-107) mmol/L Carbon Dioxide (22-30) mmol/L BUN (9-20) mg/dL Creatinine (0.66-1.25) mg/dL Glucose (74-99) mg/dL POC Glucose (mg/dL) 152 H (75-99) mg/dL TIBC (261-462) ug/dL % Saturation (20-50) % Microbiology - Last 24 Hours (Table) 02/18/17 22:28 Gram Stain - Final Sputum Sputum Culture - Final 02/19/17 12:00 Gram Stain - Preliminary Bronchial Washings - Right Bronchial Washings Culture - Preliminary Assessment and Plan Plan: Impression: 1. Mild shortness of breath with hemoptysis suspect secondary to right upper lobe mass suspicious for small cell carcinoma status post bronchoscopy with biopsies pending. 2. Anemia suspect secondary to hemoptysis and chronic renal failure with history of iron deficiency and vitamin B12 deficiency. 3. Thrombocytopenia, present on admission. 4. Chronic renal failure, stage III. Paroxysmal atrial fibrillation maintained on Eliquis in the outpatient setting. Patient currently in normal sinus rhythm. 5. Hyperlipidemia. 6. Hypertension. 7. History of ischemic cardiomyopathy status post AICD placement. 8. Coronary artery disease status post coronary artery bypass grafting followed by stenting. 9. History of prostate cancer status post prostatectomy. 10. History of GERD. 11. Severe peripheral vascular disease status post stenting to right lower extremity. 12. Severe peripheral neuropathy. 13. Osteoarthritis. 14. History of anxiety and depression, stable. 15. History of nicotine dependence. Plan: Continue to monitor patient. Patient is scheduled to undergo radiation therapy today. Continue current medications. Continue to hold aspirin, Plavix, and Eliquis for hemoptysis. Continue bronchodilators and systemic steroids. Continue to follow with cardiology, pulmonology, radiation oncology, and medical oncology. Maintain aspiration precautions. Continue IV antibiotics for empiric coverage. Continue GI and DVT prophylaxis. The above impression and plan have been discussed and directed by Dr. Mulligan. Carmel LACEY acting as scribe for Dr. Mulligan.
--- NOTE | 2017-02-20 15:20 | CT ---
EXAMINATION TYPE: CT brain w con DATE OF EXAM: 02/20/2017 3:02 PM COMPARISON: 06/02/2015 HISTORY: 76-year-old male rule out brain metastases, history of prostate CA CT DLP: 1135 mGycm Automated exposure control for dose reduction was used. CONTRAST: CT scan of the head is performed with IV Contrast, patient injected with 80 mL of Visipaque 320. Cora nal and sagittal reconstructions performed. FINDINGS: There is no abnormal enhancing mass or midline shift identified. The ventricles and sulci are within normal limits in size. Polyp or mucosal retention cyst within the inferior right maxillary sinus. Ma stoid air cells are clear and orbits/globes are intact. IMPRESSION: No enhancing intracranial lesion seen.
--- NOTE | 2017-02-20 16:19 | P.PN ---
Subjective This is a 76-year-old patient with a history of right upper lobe mass. 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 The patient was seen by medical oncology and radiation oncology. Radiation is about to begin. He still coughing up blood. Not as much. I did show his case to Dr. Gonzalez and radiation oncology yesterday. The procedure was done yesterday. In addition, Dr. Kapoor the pathologist commented, that the sputum that was sent down a couple days ago wasn't back positive for a few clumps of small cells. 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 Objective - Vital Signs Vital signs: Vital Signs Temp 96.9 F L 02/20/17 08:00 Pulse 61 02/20/17 08:00 Resp 16 02/20/17 08:00 BP 121/74 02/20/17 08:00 Pulse Ox 95 02/20/17 08:00 Intake & Output 02/19/17 02/20/17 02/20/17 18:59 06:59 18:59 Intake Total 1240 900 440 Output Total 500 Balance 740 900 440 Weight 94.8 kg Intake: IV 200 Intake, IV Titration 800 900 200 Amount Sodium Chloride 0.9% 1, 800 900 000 ml @ 100 mls/hr IV . Q10H [facility] Rx#:[id number] Sodium Chloride 0.9% 1, 200 000 ml As IV .[facility] Rx#:[id number] Oral 240 240 Output: Urine 500 Other: Voiding Method Toilet Toilet # Voids 1 1 - Exam No acute distress, oriented 3. HEENT examination is grossly unremarkable. Mucous membranes are moist. Neck supple. Full range of motion. No adenopathy. Cardiovascular examination reveals regular rhythm rate. S1 and S2 normal. Lungs reveal diminished breath sounds. A few scattered rhonchi. Abdomen soft bowel sounds are heard. Extremities are intact. No edema. Skin is without rash. Brief neurologic examination is nonfocal. - Labs CBC & Chem 7: 02/20/17 12:24 02/20/17 06:13 Labs: Abnormal Lab Results - Last 24 Hours (Table) 02/19/17 02/19/17 02/20/17 Range/Units 16:31 21:02 06:13 WBC 11.3 H (3.8-10.6) k/uL RBC 2.36 L (4.30-5.90) m/uL Hgb 8.3 L (13.0-17.5) gm/dL Hct 25.1 L (39.0-53.0) % MCV 106.3 H (80.0-100.0) fL MCH 35.3 H (25.0-35.0) pg Plt Count 106 L (150-450) k/uL Neutrophils # 10.1 H (1.3-7.7) k/uL Lymphocytes # 0.7 L (1.0-4.8) k/uL Chloride (98-107) mmol/L Carbon Dioxide (22-30) mmol/L BUN (9-20) mg/dL Creatinine (0.66-1.25) mg/dL Glucose (74-99) mg/dL POC Glucose (mg/dL) 199 H 146 H (75-99) mg/dL TIBC (261-462) ug/dL % Saturation (20-50) % 02/20/17 02/20/17 02/20/17 Range/Units 06:13 06:40 11:18 WBC (3.8-10.6) k/uL RBC (4.30-5.90) m/uL Hgb (13.0-17.5) gm/dL Hct (39.0-53.0) % MCV (80.0-100.0) fL MCH (25.0-35.0) pg Plt Count (150-450) k/uL Neutrophils # (1.3-7.7) k/uL Lymphocytes # (1.0-4.8) k/uL Chloride 114 H (98-107) mmol/L Carbon Dioxide 19 L (22-30) mmol/L BUN 34 H (9-20) mg/dL Creatinine 1.29 H (0.66-1.25) mg/dL Glucose 134 H (74-99) mg/dL POC Glucose (mg/dL) 143 H 152 H (75-99) mg/dL TIBC 208 L (261-462) ug/dL % Saturation 70.2 H (20-50) % 02/20/17 Range/Units 12:24 WBC 13.8 H (3.8-10.6) k/uL RBC 2.50 L (4.30-5.90) m/uL Hgb 9.0 L (13.0-17.5) gm/dL Hct 26.1 L (39.0-53.0) % MCV 104.7 H (80.0-100.0) fL MCH 36.2 H (25.0-35.0) pg Plt Count 107 L (150-450) k/uL Neutrophils # 12.2 H (1.3-7.7) k/uL Lymphocytes # 0.8 L (1.0-4.8) k/uL Chloride (98-107) mmol/L Carbon Dioxide (22-30) mmol/L BUN (9-20) mg/dL Creatinine (0.66-1.25) mg/dL Glucose (74-99) mg/dL POC Glucose (mg/dL) (75-99) mg/dL TIBC (261-462) ug/dL % Saturation (20-50) % Microbiology - Last 24 Hours (Table) 02/18/17 22:28 Gram Stain - Final Sputum Sputum Culture - Final 02/19/17 12:00 Gram Stain - Preliminary Bronchial Washings - Right Bronchial Washings Culture - Preliminary Assessment and Plan (1) Atrial fibrillation Status: Acute (2) Hemoptysis Status: Acute (3) Hx of CABG Status: Acute (4) Hypertension Status: Acute (5) Mass of upper lobe of right lung Status: Acute (6) Anemia Status: Chronic (7) HTN (hypertension) Status: Acute (8) Hyperlipemia Status: Acute (9) Nicotine dependence Status: Acute Plan: Plan dated 02/20/2017 The patient has been seen by medical oncology and radiation oncology. Apparently radiation therapy to begin either today or tomorrow. We'll continue to follow. I did speak to the primary about this patient. He understands the what was going on. We'll continue to follow. No additional recommendations are made. Prognosis is guarded. Hopefully he'll be able to tolerate therapy. Time with Patient: Less than 30
[2017-02-20] MEDS: DOCUSATE 100 MG CAP PO SCH (17:46)
[2017-02-20] MEDS: CHOLECALCIFEROL 1,000 UNIT TAB PO SCH (17:46)
[2017-02-20] MEDS: HYDROcodone/APAP 10-325MG 1 EACH TAB PO PRN ×2 (17:53→23:57)
[2017-02-20] MEDS: PANTOPRAZOLE 40 MG TABLET PO SCH (17:54)
[2017-02-20 18:21] LABS: Glucose,Whole Blood 138 mg/dL (75-99)
[2017-02-20] MEDS: IPRATROPIUM-ALBUTEROL 3 ML NEB INHALATION PRN (19:52)
[2017-02-20] MEDS: LEVOFLOXACIN 750MG-D5W PMX 750 MG in DEXTROSE/WATER 1 150ML.BAG IVPB SCH (20:23)
[2017-02-20] MEDS: LISINOPRIL 2.5 MG TAB PO SCH (20:24)
[2017-02-20 21:24] LABS: Glucose,Whole Blood 221 mg/dL (75-99)
[2017-02-21] MEDS: GABAPENTIN 100 MG CAP PO SCH ×2 (02:33→13:10)
[2017-02-21] MEDS: VITAMIN E (DL,TOCOPHERYL ACET) 400 UNIT CAP PO SCH (02:33)
[2017-02-21] MEDS: ATORVASTATIN 80 MG TAB PO SCH (02:33)
[2017-02-21] MEDS: methylPREDNISolone SOD SUCCI 125 MG/2 ML VIAL IV SCH ×3 (02:33→11:35)
[2017-02-21] MEDS: GABAPENTIN 400 MG CAP PO SCH ×4 (02:33→21:36)
[2017-02-21 06:21] LABS: Glucose,Whole Blood 139 mg/dL (75-99)
[2017-02-21 06:32] LABS: Anion Gap 7 mmol/L; Blood Urea Nitrogen 34 mg/dL (9-20); Calcium 8.7 mg/dL (8.4-10.2); Carbon Dioxide 20 mmol/L (22-30); Chloride 113 mmol/L (98-107); Glucose 117 mg/dL (74-99); Non-African American GFR(MDRD) 54 (>60 ml/min/1.73 sqM); Potassium 4.4 mmol/L (3.5-5.1); Sodium 140 mmol/L (137-145)
[2017-02-21] MEDS: SODIUM CHLORIDE 0.9% 1,000 ML IV SCH ×4 (06:37→23:21)
[2017-02-21] MEDS: INSULIN LISPRO (humaLOG) 300 UNIT/3 ML VIAL SQ SCH ×4 (06:38→21:36)
[2017-02-21 06:52] LABS: Basophils % (A) 0 %; CH 34.3; CHCM 32.8; Eosinophils % (A) 0 %; HCT 25.2 % (39.0-53.0); HGB 8.4 gm/dL (13.0-17.5); Luc # (Auto) 0.07; Luc % (Auto) 1; Lymphocytes # (A) 0.7 k/uL (1.0-4.8); Lymphocytes % (A) 7 %; MCH 35.2 pg (25.0-35.0); MCHC 33.5 g/dL (31.0-37.0); MCV 105.2 fL (80.0-100.0); Macrocytosis Slight; Mean Platelet Volume 8.6; Monocytes # (A) 0.5 k/uL (0-1.0); Monocytes % (A) 5 %; Neutrophils # (A) 8.9 k/uL (1.3-7.7); Neutrophils % (A) 88 %; RBC 2.39 m/uL (4.30-5.90); RDW 13.3 % (11.5-15.5); WBC 10.2 k/uL (3.8-10.6); WBC (Perox) 10.25
[2017-02-21] MEDS: FERROUS SULFATE 325 MG TAB PO SCH (09:08)
[2017-02-21] MEDS: METOPROLOL TARTRATE 50 MG TAB PO SCH ×2 (09:09→21:36)
[2017-02-21] MEDS: MULTIVITAMINS, THERA 1 EACH TAB PO SCH (09:10)
[2017-02-21] MEDS: HEPARIN SODIUM,PORCINE 5,000 UNIT/ML 1 ML VIAL SQ SCH ×2 (09:11→21:35)
[2017-02-21] MEDS: SPIRONOLACTONE 25 MG TAB PO SCH (09:11)
[2017-02-21] MEDS: POLYETHYLENE GLYCOL 3350 17 GM POWD.PACK PO SCH (09:11)
[2017-02-21] MEDS: OXYBUTYNIN CHLORIDE 5 MG TAB PO SCH ×4 (09:12→21:36)
[2017-02-21 11:07] LABS: Glucose,Whole Blood 202 mg/dL (75-99)
[2017-02-21] MEDS: DOCUSATE 100 MG CAP PO SCH (13:09)
[2017-02-21] MEDS: CHOLECALCIFEROL 1,000 UNIT TAB PO SCH (13:09)
[2017-02-21] MEDS: PYRIDOXINE 50 MG TAB PO SCH (13:10)
--- NOTE | 2017-02-21 13:26 | P.PN ---
Subjective This is a 76-year-old patient with a history of right upper lobe mass. 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 The patient was seen by medical oncology and radiation oncology. Radiation is about to begin. He still coughing up blood. Not as much. I did show his case to Dr. Gonzalez and radiation oncology yesterday. The procedure was done yesterday. In addition, Dr. Kapoor the pathologist commented, that the sputum that was sent down a couple days ago wasn't back positive for a few clumps of small cells. 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 Progress note dated 02/21/2017 76-year-old gentleman with a history of a mass in the right upper lobe. He had biopsies brushes and washings done. There are positive for small cell lung cancer. We'll see the lung cancer doctors today as well as the radiation therapist. The patient has restarted with his radiation therapy and his hemoptysis which was his presenting complaint has significantly improved. He's not coughing up much or any blood that he did when he first came in. I did speak to the pathologist. The initial samples of sputum sent down there were positive for small cell lung cancer. Also, the other biopsies provided were also positive. The patient seemed be doing relatively well today. Daughter at the bedside. Not coughing up any blood. Not short of breath. Objective - Vital Signs Vital signs: Vital Signs Temp 96.8 F L 02/21/17 11:07 Pulse 56 L 02/21/17 11:07 Resp 18 02/21/17 11:07 BP 134/59 02/21/17 11:07 Pulse Ox 95 02/21/17 11:07 Intake & Output 02/20/17 02/21/17 02/21/17 18:59 06:59 18:59 Intake Total 771 134 8142 Balance 988 593 3108 Weight 95.5 kg Intake: IV 800 Sodium Chloride 0.9% 1, 800 000 ml @ 100 mls/hr IV . Q10H [facility] Rx#:[id number] Intake, IV Titration 200 Amount Sodium Chloride 0.9% 1, 200 000 ml As IV .[facility] Rx#:[id number] Oral 240 240 240 Other: Voiding Method Toilet Toilet - Exam No acute distress, oriented 3. HEENT examination is grossly unremarkable. Mucous membranes are moist. Neck supple. Full range of motion. No adenopathy. Cardiovascular examination reveals regular rhythm rate. S1 and S2 normal. Lungs reveal diminished breath sounds. A few scattered rhonchi. Abdomen soft bowel sounds are heard. Extremities are intact. No edema. Skin is without rash. Brief neurologic examination is nonfocal. - Labs CBC & Chem 7: 02/21/17 05:51 02/21/17 05:51 Labs: Abnormal Lab Results - Last 24 Hours (Table) 02/20/17 02/20/17 02/20/17 Range/Units 06:13 17:50 21:17 RBC (4.30-5.90) m/uL Hgb (13.0-17.5) gm/dL Hct (39.0-53.0) % MCV (80.0-100.0) fL MCH (25.0-35.0) pg Plt Count (150-450) k/uL Neutrophils # (1.3-7.7) k/uL Lymphocytes # (1.0-4.8) k/uL Chloride (98-107) mmol/L Carbon Dioxide (22-30) mmol/L BUN (9-20) mg/dL Creatinine (0.66-1.25) mg/dL Glucose (74-99) mg/dL POC Glucose (mg/dL) 138 H 221 H (75-99) mg/dL RBC Folate 1,210 H (280 - 791) ng/mL 02/21/17 02/21/17 02/21/17 Range/Units 05:51 05:51 06:20 RBC 2.39 L (4.30-5.90) m/uL Hgb 8.4 L (13.0-17.5) gm/dL Hct 25.2 L (39.0-53.0) % MCV 105.2 H (80.0-100.0) fL MCH 35.2 H (25.0-35.0) pg Plt Count 97 L (150-450) k/uL Neutrophils # 8.9 H (1.3-7.7) k/uL Lymphocytes # 0.7 L (1.0-4.8) k/uL Chloride 113 H (98-107) mmol/L Carbon Dioxide 20 L (22-30) mmol/L BUN 34 H (9-20) mg/dL Creatinine 1.30 H (0.66-1.25) mg/dL Glucose 117 H (74-99) mg/dL POC Glucose (mg/dL) 139 H (75-99) mg/dL RBC Folate (280 - 791) ng/mL 02/21/17 Range/Units 11:06 RBC (4.30-5.90) m/uL Hgb (13.0-17.5) gm/dL Hct (39.0-53.0) % MCV (80.0-100.0) fL MCH (25.0-35.0) pg Plt Count (150-450) k/uL Neutrophils # (1.3-7.7) k/uL Lymphocytes # (1.0-4.8) k/uL Chloride (98-107) mmol/L Carbon Dioxide (22-30) mmol/L BUN (9-20) mg/dL Creatinine (0.66-1.25) mg/dL Glucose (74-99) mg/dL POC Glucose (mg/dL) 202 H (75-99) mg/dL RBC Folate (280 - 791) ng/mL Microbiology - Last 24 Hours (Table) 02/19/17 12:00 Gram Stain - Final Bronchial Washings - Right Bronchial Washings Culture - Final Assessment and Plan (1) Atrial fibrillation Status: Acute (2) Hemoptysis Status: Acute (3) Hx of CABG Status: Acute (4) Hypertension Status: Acute (5) Mass of upper lobe of right lung Status: Acute (6) Anemia Status: Chronic (7) HTN (hypertension) Status: Acute (8) Hyperlipemia Status: Acute (9) Nicotine dependence Status: Acute (10) Small cell lung cancer Status: Acute Plan: Plan dated 02/20/2017 The patient has been seen by medical oncology and radiation oncology. Apparently radiation therapy to begin either today or tomorrow. We'll continue to follow. I did speak to the primary about this patient. He understands the what was going on. We'll continue to follow. No additional recommendations are made. Prognosis is guarded. Hopefully he'll be able to tolerate therapy. Plan dated 02/21/2017 The patient will continue to follow with radiation therapy and also with medical oncology. I believe the medical oncologist. By to see him today. He feels better. He looks better. Not short of breath. Not coughing up blood anymore. Again we'll continue to follow. He will follow with me in the office. Additional recommendations suggestions are forthcoming. Time with Patient: Less than 30
--- NOTE | 2017-02-21 14:49 | P.PN ---
Subjective Principal diagnosis: Lung cancer Patient is a 76-year-old male, patient of Dr. Mulligan in the outpatient setting, with medical history significant for paroxysmal atrial fibrillation, GERD, hyperlipidemia, hypertension, coronary artery disease status post coronary artery bypass grafting in 2014 followed by stenting to the left SFA in August 2015, myocardial infarction, ischemic cardiomyopathy status post placement of internal cardiac defibrillator, prostate cancer status post prostatectomy in 1998, peripheral vascular disease status post stent placement to left lower extremity, osteoarthritis, severe peripheral neuropathy, and remote nicotine dependence. Patient presented via EMS to the emergency department when he was transferred from [facility] for hemoptysis and mild shortness of breath. Patient apparently has had intermittent hemoptysis over the last couple years but increased significantly at 5 AM on the morning of admission. According to chart, CT chest obtained at [facility] did reveal a 2.1 cm right upper lobe mass with appearance consistent with primary neoplasm of lung. Admission labs with evidence of anemia and thrombocytopenia. Patient was admitted to the medical floor on cardiac monitoring, started on IV antibiotics in the form of Levaquin, and consults were requested for Dr. Sol for pulmonology service and cardiology recommendations for anticoagulation. Patient underwent bronchoscopy with BAL, brushings, and biopsies on 02/19/2017 by pulmonary service with preliminary pathology suspicious for small cell carcinoma. Radiation oncology and medical oncology have been consulted. Patient is currently scheduled to undergo radiation therapy today and will need outpatient staging workup including PET scan and MRI of the brain. Computed tomography scan of the head with no evidence of intracranial lesions. Upon examination, patient states he is no longer having hemoptysis. Denies increased shortness of breath. Denies chest pain or abdominal pain. Patient is urinating without difficulty. Patient had a bowel movement yesterday. No evidence of leukocytosis. Hemoglobin stable at 8.4. Oxygen saturation 95% on room air. Objective - Vital Signs Vital signs: Vital Signs Temp 96.8 F L 02/21/17 11:07 Pulse 56 L 02/21/17 11:07 Resp 18 02/21/17 11:07 BP 134/59 02/21/17 11:07 Pulse Ox 95 02/21/17 11:07 Intake & Output 02/20/17 02/21/17 02/21/17 18:59 06:59 18:59 Intake Total 374 204 0468 Balance 349 512 4720 Weight 95.5 kg Intake: IV 800 Sodium Chloride 0.9% 1, 800 000 ml @ 100 mls/hr IV . Q10H [facility] Rx#:[id number] Intake, IV Titration 200 Amount Sodium Chloride 0.9% 1, 200 000 ml [facility][id number] Oral 240 240 240 Other: Voiding Method Toilet Toilet - Exam GENERAL: Pt awake and alert, well-nourished, appears in no acute distress. HEAD: Atraumatic, normocephalic. EYES: Pupils equal, round, and reactive to light, extraocular movements intact, sclera anicteric, conjunctiva are normal. ENT: Moist mucous membranes. NECK:Supple without lymphadenopathy or JVD. LUNGS: Breath sounds diminished to right upper lobe with few rhonchi. HEART: Heart S1, S2, no S3 or S4. Regular rate and rhythm. Systolic murmur. ABDOMEN: Soft, obese, nontender, nondistended, normoactive bowel sounds. No guarding, no rebound. No masses or organomegaly appreciated. EXTREMITIES: 1+ peripheral pulses. Trace peripheral edema. No calf tenderness. NEUROLOGICAL: Pt oriented x 3. No focal deficits noted. Decreased sensation to bilateral lower extremities. PSYCH: Normal mood, normal affect. SKIN: Warm, dry, intact. Normal turgor. No rashes or lesions. - Labs CBC & Chem 7: 02/21/17 05:51 02/21/17 05:51 Labs: Abnormal Lab Results - Last 24 Hours (Table) 02/20/17 02/20/17 02/20/17 Range/Units 06:13 17:50 21:17 RBC (4.30-5.90) m/uL Hgb (13.0-17.5) gm/dL Hct (39.0-53.0) % MCV (80.0-100.0) fL MCH (25.0-35.0) pg Plt Count (150-450) k/uL Neutrophils # (1.3-7.7) k/uL Lymphocytes # (1.0-4.8) k/uL Chloride (98-107) mmol/L Carbon Dioxide (22-30) mmol/L BUN (9-20) mg/dL Creatinine (0.66-1.25) mg/dL Glucose (74-99) mg/dL POC Glucose (mg/dL) 138 H 221 H (75-99) mg/dL RBC Folate 1,210 H (280 - 791) ng/mL 02/21/17 02/21/17 02/21/17 Range/Units 05:51 05:51 06:20 RBC 2.39 L (4.30-5.90) m/uL Hgb 8.4 L (13.0-17.5) gm/dL Hct 25.2 L (39.0-53.0) % MCV 105.2 H (80.0-100.0) fL MCH 35.2 H (25.0-35.0) pg Plt Count 97 L (150-450) k/uL Neutrophils # 8.9 H (1.3-7.7) k/uL Lymphocytes # 0.7 L (1.0-4.8) k/uL Chloride 113 H (98-107) mmol/L Carbon Dioxide 20 L (22-30) mmol/L BUN 34 H (9-20) mg/dL Creatinine 1.30 H (0.66-1.25) mg/dL Glucose 117 H (74-99) mg/dL POC Glucose (mg/dL) 139 H (75-99) mg/dL RBC Folate (280 - 791) ng/mL 02/21/17 Range/Units 11:06 RBC (4.30-5.90) m/uL Hgb (13.0-17.5) gm/dL Hct (39.0-53.0) % MCV (80.0-100.0) fL MCH (25.0-35.0) pg Plt Count (150-450) k/uL Neutrophils # (1.3-7.7) k/uL Lymphocytes # (1.0-4.8) k/uL Chloride (98-107) mmol/L Carbon Dioxide (22-30) mmol/L BUN (9-20) mg/dL Creatinine (0.66-1.25) mg/dL Glucose (74-99) mg/dL POC Glucose (mg/dL) 202 H (75-99) mg/dL RBC Folate (280 - 791) ng/mL Microbiology - Last 24 Hours (Table) 02/19/17 12:00 Gram Stain - Final Bronchial Washings - Right Bronchial Washings Culture - Final Assessment and Plan Plan: Impression: 1. Mild shortness of breath with hemoptysis suspect secondary to right upper lobe mass suspicious for small cell carcinoma status post bronchoscopy with biopsies pending. 2. Anemia suspect secondary to hemoptysis and chronic renal failure with history of iron deficiency and vitamin B12 deficiency. 3. Thrombocytopenia, present on admission. Platelet count decreased to 97. 4. Chronic renal failure, stage III. Creatinine increased to 1.3. 5. Paroxysmal atrial fibrillation maintained on Eliquis in the outpatient setting. Patient currently in normal sinus rhythm. 6. Hyperlipidemia. 7. Hypertension. 8. History of ischemic cardiomyopathy status post AICD placement. 9. Coronary artery disease status post coronary artery bypass grafting followed by stenting. 10. History of prostate cancer status post prostatectomy. 11. History of GERD. 12. Severe peripheral vascular disease status post stenting to right lower extremity. 13. Severe peripheral neuropathy. 14. Osteoarthritis. 15. History of anxiety and depression, stable. 16. History of nicotine dependence. Plan: Continue to monitor patient. Patient is scheduled to undergo radiation therapy this afternoon. Continue current medications. Continue to hold aspirin, Plavix , and Eliquis for hemoptysis. Continue bronchodilators and systemic steroids. Continue to follow with cardiology, pulmonology, radiation oncology, and medical oncology. Maintain aspiration precautions. Continue IV antibiotics for empiric coverage. Continue GI and DVT prophylaxis. The above impression and plan have been discussed and directed by Dr. Mulligan. Carmel LACEY acting as scribe for Dr. Mulligan.
[2017-02-21] MEDS: HYDROcodone/APAP 10-325MG 1 EACH TAB PO PRN (14:53)
[2017-02-21 16:25] LABS: Glucose,Whole Blood 176 mg/dL (75-99)
[2017-02-21] MEDS: PANTOPRAZOLE 40 MG TABLET PO SCH (17:42)
[2017-02-21] MEDS: LEVOFLOXACIN 750MG-D5W PMX 750 MG in DEXTROSE/WATER 1 150ML.BAG IVPB SCH (17:44)
[2017-02-21] MEDS: methylPREDNISolone SOD SUCCI 40 MG/ML 1 ML VIAL IV SCH ×2 (17:55→23:21)
--- NOTE | 2017-02-21 18:22 | P.PN ---
Subjective Principal diagnosis: hemoptysis, small cell lung cancer Pt seen today in follow-up. His daughter sitting at the bedside. He states no hemoptysis today. He has started radiation therapy. Patient states feeling weak, no significant shortness of breath, patient has not been ambulating much Objective - Vital Signs Vital signs: Vital Signs Temp 96.8 F L 02/21/17 11:07 Pulse 56 L 02/21/17 11:07 Resp 18 02/21/17 16:00 BP 134/59 02/21/17 11:07 Pulse Ox 95 02/21/17 11:07 Intake & Output 02/20/17 02/21/17 02/21/17 18:59 06:59 18:59 Intake Total 823 691 3731 Balance 628 588 8350 Weight 95.5 kg Intake: IV 1400 Sodium Chloride 0.9% 1, 1400 000 ml @ 100 mls/hr IV . Q10H [facility] Rx#:[id number] Intake, IV Titration 200 Amount Sodium Chloride 0.9% 1, 200 000 ml As IV [facility] Rx#:[id number] Oral 240 240 240 Other: Voiding Method Toilet Toilet # Voids 2 - Constitutional General appearance: Present: average body habitus, cooperative, no acute distress - Respiratory Respiratory: left: diminished, rales (scattered) - Cardiovascular Heart sounds: normal: S1, S2 - Peripheral edema leg Peripheral Edema: bilateral: None - Gastrointestinal General gastrointestinal: Present: soft - Neurologic Neurologic: Present: CNII-XII intact - Musculoskeletal Musculoskeletal: Present: strength equal bilaterally - Psychiatric Psychiatric: Present: A&O x's 3, appropriate affect, intact judgment & insight - Labs CBC & Chem 7: 02/21/17 05:51 02/21/17 05:51 Labs: Abnormal Lab Results - Last 24 Hours (Table) 02/20/17 02/20/17 02/20/17 Range/Units 06:13 17:50 21:17 RBC (4.30-5.90) m/uL Hgb (13.0-17.5) gm/dL Hct (39.0-53.0) % MCV (80.0-100.0) fL MCH (25.0-35.0) pg Plt Count (150-450) k/uL Neutrophils # (1.3-7.7) k/uL Lymphocytes # (1.0-4.8) k/uL Chloride (98-107) mmol/L Carbon Dioxide (22-30) mmol/L BUN (9-20) mg/dL Creatinine (0.66-1.25) mg/dL Glucose (74-99) mg/dL POC Glucose (mg/dL) 138 H 221 H (75-99) mg/dL RBC Folate 1,210 H (280 - 791) ng/mL 02/21/17 02/21/17 02/21/17 Range/Units 05:51 05:51 06:20 RBC 2.39 L (4.30-5.90) m/uL Hgb 8.4 L (13.0-17.5) gm/dL Hct 25.2 L (39.0-53.0) % MCV 105.2 H (80.0-100.0) fL MCH 35.2 H (25.0-35.0) pg Plt Count 97 L (150-450) k/uL Neutrophils # 8.9 H (1.3-7.7) k/uL Lymphocytes # 0.7 L (1.0-4.8) k/uL Chloride 113 H (98-107) mmol/L Carbon Dioxide 20 L (22-30) mmol/L BUN 34 H (9-20) mg/dL Creatinine 1.30 H (0.66-1.25) mg/dL Glucose 117 H (74-99) mg/dL POC Glucose (mg/dL) 139 H (75-99) mg/dL RBC Folate (280 - 791) ng/mL 02/21/17 02/21/17 Range/Units 11:06 16:23 RBC (4.30-5.90) m/uL Hgb (13.0-17.5) gm/dL Hct (39.0-53.0) % MCV (80.0-100.0) fL MCH (25.0-35.0) pg Plt Count (150-450) k/uL Neutrophils # (1.3-7.7) k/uL Lymphocytes # (1.0-4.8) k/uL Chloride (98-107) mmol/L Carbon Dioxide (22-30) mmol/L BUN (9-20) mg/dL Creatinine (0.66-1.25) mg/dL Glucose (74-99) mg/dL POC Glucose (mg/dL) 202 H 176 H (75-99) mg/dL RBC Folate (280 - 791) ng/mL Microbiology - Last 24 Hours (Table) 02/19/17 12:00 Gram Stain - Final Bronchial Washings - Right Bronchial Washings Culture - Final - Imaging and Cardiology CT Scan - head: report reviewed Assessment and Plan (1) Mass of upper lobe of right lung Status: Acute (2) Anemia Narrative/Plan: Anemia of inflammation/malignancy and quite possibly chronic kidney disease is suspected. No need for transfusion at this time. His Hgb will be monitored outpatient Status: Chronic Plan: Dr. Figueroa had a long discussion with patient and his daughter at the bedside about his new diagnosis of small cell lung cancer. Imaging at this time is showing what looks like limited stage disease (stage III) and contained within the chest, CT of the head was negative. It was explained that PET scan is needed for complete staging and a plan of care will be discussed once that is known. All the patient and his family's questions were answered to their satisfaction. Patient is okay to continue with palliative radiation at this time, patient has had significant relief from hemoptysis with treatment. Patient will be scheduled for PET scan next Friday, daughters contact information was verified with her and she will be contacted with that appointment date and time. Pt will follow-up with Dr. Figueroa following week. Patient is okay from an oncology standpoint to be discharged to home once he has been cleared by and other consulting physicians
[2017-02-21 20:44] LABS: Glucose,Whole Blood 181 mg/dL (75-99)
[2017-02-21] MEDS: LISINOPRIL 2.5 MG TAB PO SCH (21:35)
[2017-02-22] MEDS: GABAPENTIN 100 MG CAP PO SCH ×2 (02:32→14:29)
[2017-02-22] MEDS: VITAMIN E (DL,TOCOPHERYL ACET) 400 UNIT CAP PO SCH (02:32)
[2017-02-22] MEDS: ATORVASTATIN 80 MG TAB PO SCH (02:33)
[2017-02-22] MEDS: GABAPENTIN 400 MG CAP PO SCH ×4 (02:33→21:44)
[2017-02-22 07:33] LABS: Glucose,Whole Blood 128 mg/dL (75-99)
[2017-02-22 07:39] LABS: Basophils % (A) 0 %; CH 34.4; CHCM 32.5; Eosinophils % (A) 0 %; HCT 27.3 % (39.0-53.0); HDW 2.49; HGB 8.9 gm/dL (13.0-17.5); Luc # (Auto) 0.07; Luc % (Auto) 1; Lymphocytes # (A) 0.8 k/uL (1.0-4.8); Lymphocytes % (A) 6 %; MCH 34.8 pg (25.0-35.0); MCHC 32.7 g/dL (31.0-37.0); MCV 106.3 fL (80.0-100.0); Macrocytosis Moderate; Mean Platelet Volume 8.5; Monocytes # (A) 0.6 k/uL (0-1.0); Monocytes % (A) 5 %; Neutrophils % (A) 88 %; RBC 2.56 m/uL (4.30-5.90); RDW 13.5 % (11.5-15.5); WBC 12.5 k/uL (3.8-10.6); WBC (Perox) 13.12
[2017-02-22 08:04] LABS: Anion Gap 8 mmol/L; Blood Urea Nitrogen 33 mg/dL (9-20); Calcium 8.6 mg/dL (8.4-10.2); Carbon Dioxide 21 mmol/L (22-30); Chloride 115 mmol/L (98-107); Glucose 122 mg/dL (74-99); Non-African American GFR(MDRD) 52 (>60 ml/min/1.73 sqM); Potassium 4.6 mmol/L (3.5-5.1); Sodium 144 mmol/L (137-145)
[2017-02-22] MEDS: INSULIN LISPRO (humaLOG) 300 UNIT/3 ML VIAL SQ SCH ×4 (08:44→21:44)
[2017-02-22] MEDS: METOPROLOL TARTRATE 50 MG TAB PO SCH ×2 (09:01→21:43)
[2017-02-22] MEDS: methylPREDNISolone SOD SUCCI 40 MG/ML 1 ML VIAL IV SCH (09:02)
[2017-02-22] MEDS: OXYBUTYNIN CHLORIDE 5 MG TAB PO SCH ×4 (09:02→21:44)
[2017-02-22] MEDS: FERROUS SULFATE 325 MG TAB PO SCH (09:03)
[2017-02-22] MEDS: POLYETHYLENE GLYCOL 3350 17 GM POWD.PACK PO SCH (09:04)
[2017-02-22] MEDS: MULTIVITAMINS, THERA 1 EACH TAB PO SCH (09:04)
[2017-02-22] MEDS: SPIRONOLACTONE 25 MG TAB PO SCH (09:04)
[2017-02-22] MEDS: HEPARIN SODIUM,PORCINE 5,000 UNIT/ML 1 ML VIAL SQ SCH ×2 (09:05→21:44)
[2017-02-22 11:41] LABS: Glucose,Whole Blood 189 mg/dL (75-99)
[2017-02-22] MEDS: IPRATROPIUM-ALBUTEROL 3 ML NEB INHALATION PRN ×2 (11:53→15:09)
--- NOTE | 2017-02-22 12:30 | PN ---
A 76-year-old white male patient of mine that his medically significant history for premature atrial fib, GERD, hyperlipidemia, hypertension, coronary artery disease, post coronary artery bypass in 2014 followed by stenting to the left SFA status post coronary artery bypass. Has had a myocardial infarction and has some ischemic cardiomyopathy with ejection fraction about 30, had an internal cardiac defibrillator placed in. Has a history of prostate cancer status post prostatectomy in 1998, has severe peripheral vascular disease with post stent placement to the left lower extremity, severe arthritis, severe peripheral neuropathy and remote nicotine dependence. He came to the emergency room via ambulance from [facility] with hemoptysis and mild shortness of breath. The patient apparently had intermittent hemoptysis over the last couple years, according to the patient. CT scan in [place] revealed him to have a 2.1 right upper lobe mass that was later documented as a primary neoplasm small cell carcinoma after bronchoscopy and it was endobronchial. He came in with moderately severe anemia and thrombocytopenia. The patient was then admitted to the medical floor. He started on some IV antibiotics, consulted Dr. Sol for pulmonary care and did have bronchoscopy brushing biopsies accordingly where non-small cell carcinoma was documented. Medical oncology, Dr. Figueroa, saw the patient and the radiation therapist. The patient has had one radiotherapy completed to the lungs. He is still having hemoptysis at this time. A PET scan and MRI of the brain is also scheduled. At this time tomography scan of the head showed no evidence of intracranial bleeding. The patient is having hemoptysis at this time. His shortness of breath stays the same. He has been moved over to the oncology floor. At this time his hemoglobin is at 6.9. His platelet count is 107,.000. His medications remain: 1. Firth every 6 hours p.r.n. pain. 2. He is on albuterol and ipratropium updrafts every 4 hours p.r.n. pain. 3. He still stays on Lipitor 80 today. 4. He is on vitamin D. 5. Colace. 6. Ferrous sulfate. 7. He is on Neurontin 400 mg p.o. 4 times a day and then an additional 100 mg at 1400 and 200 daily. He is on subcutaneous heparin every 12. 8. He is on insulin to scale. 9. He is on Levaquin 750 daily. 10. Lisinopril 2.5 mg. 11. Solu-Medrol 40 mg every 8 hours. 12. Lopressor 40. 13. Theragran vitamin daily. 14. Ditropan 5 mg a day. 15. Protonix 40 mg b.i.d. 16. MiraLax p.r.n. 17. Vitamin B6. 18. Spironolactone 25 daily. 19. Vitamin E. REVIEW OF SYSTEMS: CARDIOPULMONARY: He is still coughing up blood, more this a.m. than last p.m. Still with shortness of breath. No chest pain. No orthopnea, no paroxysmal nocturnal dyspnea. GI: No hematemesis, melena, hematochezia. : Normal urination. Has a history of prostate cancer. NEUROMUSCULAR: Some weakness of the arms and the legs, patient states mostly because of his problems with his blood vessels. NEUROMUSCULAR: Has bad back pain and has had progressive disease. PHYSICAL EXAM: At this time, blood pressure 160/71, heart rate is in the 50s, respiratory rate is 18, temperature 97.4 and O2 sat is 98% on room air. EYES: Pupils are equal, round, reactive to light and accommodation. He does have palpebral conjunctivae. ENT shows a very dry mouth. NECK: Supple with midline trachea. CHEST: Essentially decreased breath sounds bilaterally. Evidence of hemoptysis is seen in the container that he is spitting up. HEART: Sinus rhythm. ABDOMEN: Soft, nontender, with no organomegaly. EXTREMITIES: Decreased pulses in the lower extremities. SKIN: Has some bruising throughout, but it is smooth. No evidence of erythema. BACK: Not completed but he has full range of motion of his neck. Good hand strength at this time. PSYCHIATRIC: Appears to be well orientated to person, place, and thing. He is uplifted at this time, he says he understands everything that is going on. Nutritionally he is on a regular diet, appetite is much decreased. ASSESSMENT: 1. Hemoptysis secondary to small cell carcinoma endobronchial lesion with some metastatic lymph node involvement. 2. Anemia secondary to hemoptysis, also chronic history of iron deficiency and B12 deficiency. 3. Thrombocytopenia seen on admission with platelet count right around 97,000. 4. Chronic renal failure just stage II, creatinine 1.3. He does have paroxysmal atrial fibrillation, for which has been on Eliquis. Currently has sinus rhythm. 5. Hyperlipidemia. 6. Hypertension. 7. Coronary artery disease status post bypass and stent. 8. Moderate ischemic cardiomyopathy with a AICD placement for ejection fraction right around 30. 9. Prostate cancer in 1998, status post prostatectomy. 10. Gastroesophageal reflux disease. 11. Severe peripheral artery disease with post stenting to right lower extremity with severe peripheral neuropathy. 12. Generalized osteoarthritis. 13. Anxiety and depression, stable, he has been long-time nicotine dependent. PLAN: We are still having him stay off steroids and bronchodilators. We are holding aspirin, Plavix, Eliquis and having him on subcutaneous heparin and updrafts. He does live in [place] so we made a decision, because his hemoptysis semi-recurring today, to hold them probably until radiation on Friday.
[2017-02-22] MEDS: DOCUSATE 100 MG CAP PO SCH (14:29)
[2017-02-22] MEDS: PYRIDOXINE 50 MG TAB PO SCH (14:31)
[2017-02-22] MEDS: CHOLECALCIFEROL 1,000 UNIT TAB PO SCH (14:31)
[2017-02-22 17:24] LABS: Glucose,Whole Blood 170 mg/dL (75-99)
--- NOTE | 2017-02-22 17:42 | PN ---
76-year-old gentleman who underwent bronchoscopy this week. We found a mass in his right upper lobe obstructing the apical anterior and posterior segments of the right upper lobe. We did biopsies, brushes, and washes and they came back positive for small lung cancer. He has seen the medical oncologist and radiation therapist. He started radiation for significant hemoptysis. Doing better. Coughing up blood but it is old blood. Feeling much improved. He is here through the weekend. Possible discharge tomorrow or Friday. The patient has no other complaints. No pain. His primary doctor is Dr. Petey Mulligan. Current vital signs are reviewed. Temperature is 97.4, heart rate 56, respiratory rate 18, blood pressure 163/71. Room air saturation 98%. Appears in no acute distress. HEENT examination is grossly unremarkable. Mucous membranes are moist. No oral lesions. Neck is supple. Full range of motion. No adenopathy or thyromegaly. Neck veins are flat. Cardiovascular examination reveals regular rhythm and rate. S1, S2 normal. No S3, S4 or murmur. Lungs reveal relatively clear breath sounds. No wheezes, rhonchi or crackles. ABDOMEN: Soft. Bowel sounds are heard. No masses or tenderness. EXTREMITIES: Intact. No cyanosis, clubbing, or edema. Skin is intact. No rashes. NEUROLOGICAL: Nonfocal. Labs are reviewed. White count 12.5, hemoglobin 8.9, hematocrit 27.3. Sodium 144, potassium 4.6, chloride 115, CO2 of 21, BUN and creatinine were 33 and 1.34. No new x-rays to review. Medications are reviewed. ASSESSMENT: 1. Small cell lung cancer, presenting primarily as hemostasis. 2. Atrial fibrillation. 3. Previous history of bypass grafting. 4. History of hypertension. 5. Hyperlipidemia. 6. Chronic nicotine dependence. PLAN: The patient seemed to be doing relatively well. He has been seen by medical and radiation oncology. Radiation treatments have begun. His hemoptysis settled down. We will continue to follow closely. Medications, x-rays and labs are reviewed. No additional recommendations are made. Prognosis is guarded.
[2017-02-22] MEDS: PANTOPRAZOLE 40 MG TABLET PO SCH (17:50)
[2017-02-22 20:15] LABS: Glucose,Whole Blood 164 mg/dL (75-99)
[2017-02-22] MEDS: LISINOPRIL 2.5 MG TAB PO SCH (21:44)
[2017-02-22] MEDS: SODIUM CHLORIDE 0.9% 1,000 ML IV SCH ×2 (21:47→21:48)
[2017-02-23] MEDS: SODIUM CHLORIDE 0.9% 1,000 ML IV SCH (01:11)
[2017-02-23] MEDS: ATORVASTATIN 80 MG TAB PO SCH (01:11)
[2017-02-23] MEDS: VITAMIN E (DL,TOCOPHERYL ACET) 400 UNIT CAP PO SCH (01:12)
[2017-02-23] MEDS: GABAPENTIN 400 MG CAP PO SCH ×2 (01:12→08:23)
[2017-02-23] MEDS: GABAPENTIN 100 MG CAP PO SCH (01:12)
[2017-02-23 07:27] LABS: Glucose,Whole Blood 95 mg/dL (75-99)
[2017-02-23] MEDS: IPRATROPIUM-ALBUTEROL 3 ML NEB INHALATION PRN ×2 (07:38→11:29)
[2017-02-23 07:53] VITALS: BP 147/67; RESP 18; TEMP 98
[2017-02-23] MEDS: INSULIN LISPRO (humaLOG) 300 UNIT/3 ML VIAL SQ SCH ×2 (08:11→11:59)
[2017-02-23] MEDS: POLYETHYLENE GLYCOL 3350 17 GM POWD.PACK PO SCH (08:22)
[2017-02-23] MEDS: HEPARIN SODIUM,PORCINE 5,000 UNIT/ML 1 ML VIAL SQ SCH (08:23)
[2017-02-23] MEDS: OXYBUTYNIN CHLORIDE 5 MG TAB PO SCH (08:23)
[2017-02-23] MEDS: FERROUS SULFATE 325 MG TAB PO SCH (08:24)
[2017-02-23] MEDS: SPIRONOLACTONE 25 MG TAB PO SCH (08:24)
[2017-02-23] MEDS: METOPROLOL TARTRATE 50 MG TAB PO SCH (08:24)
[2017-02-23] MEDS: MULTIVITAMINS, THERA 1 EACH TAB PO SCH (08:24)
[2017-02-23 08:40] LABS: CHCM 32.8; HCT 27.8 % (39.0-53.0); HDW 2.49; HGB 9.1 gm/dL (13.0-17.5); MCHC 32.6 g/dL (31.0-37.0); MCV 107.5 fL (80.0-100.0); Macrocytosis Moderate; Mean Platelet Volume 7.9; RBC 2.59 m/uL (4.30-5.90); WBC 10.9 k/uL (3.8-10.6)
[2017-02-23 09:04] LABS: Anion Gap 7 mmol/L; Blood Urea Nitrogen 29 mg/dL (9-20); Calcium 8.7 mg/dL (8.4-10.2); Carbon Dioxide 19 mmol/L (22-30); Chloride 117 mmol/L (98-107); Glucose 87 mg/dL (74-99); Non-African American GFR(MDRD) >60 (>60 ml/min/1.73 sqM); Potassium 3.6 mmol/L (3.5-5.1); Sodium 143 mmol/L (137-145)
[2017-02-23 11:07] LABS: Glucose,Whole Blood 117 mg/dL (75-99)
[2017-02-23 12:57] VITALS: PULSE 58
--- NOTE | 2017-02-23 15:06 | PN ---
76-year-old gentleman who I saw recently for hemoptysis. Chest x-ray and CAT scan were abnormal. He had bronchoscopy, which revealed an obstructing mass of the right upper lobe. 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 Radiation has been started. He has been seen by Medical Oncology. He is still coughing up blood, but it is mostly dark blood now. Not having any shortness of breath. No pain. His primary doctor is Dr. Petey Mulligan. Current vital signs are reviewed. His temperature is 98.8, heart rate 56, respiratory rate 18, blood pressure 147/67, room air saturation 97%. Appears in no acute distress. HEENT examination is grossly unremarkable. Mucous membranes are moist. Neck is supple. Full range of motion. No adenopathy or thyromegaly. Cardiovascular examination reveals regular rhythm and rate. Lungs reveal diminished breath sounds. No wheezes or rhonchi. No crackles. Abdomen is soft. Bowel sounds are heard. Extremities are intact. No cyanosis, clubbing, or edema. Skin without rash or lesion. Brief neurologic examination is nonfocal. Labs are reviewed. White count 10.9, hemoglobin 9.1, hematocrit 27.8, platelet count is 96,000. Sodium and potassium normal. Chloride is 117, CO2 of 19. BUN and creatinine were 29 and 1.18. No recent x-rays to report. Microbiology is all negative. Medications are reviewed. ASSESSMENT: 1. Small cell lung cancer, presenting primarily as hemoptysis. 2. Complete obstruction of the right upper lobe bronchus secondary to malignancy. 3. Atrial fibrillation. 4. Previous history of bypass grafting. 5. History of hypertension. 6. Hyperlipidemia. 7. Chronic nicotine dependence. 8. Nonanion gap metabolic acidosis secondary to hyperchloremia. PLAN: The patient is doing relatively well. Has started radiation treatment. I am not sure when Medical Oncology will start with chemo. Will continue to follow. Prognosis is guarded.
[2017-02-23] MEDS ORDERED: LEVOFLOXACIN 750 MG TAB PO SCH (18:00)
--- NOTE | 2017-02-24 13:03 | DS ---
DATE OF ADMISSION: 02/17/2017 DATE OF DISCHARGE: 02/23/2017 DISCHARGE DIAGNOSES: 1. 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 2. Hemoptysis secondary to small cell causing severe anemia. 3. Anemia secondary to chronic iron and B12 deficiency. 4. Thrombocytopenia with present platelet count of 97,000. 5. Renal failure stage II, creatinine 1.2. 6. Paroxysmal atrial fibrillation. 7. Hyperlipidemia. 8. Hypertension. 9. Coronary artery disease, status post bypass. 10. Moderate ischemic cardiomyopathy with AICD placement, ejection fraction 30%. 11. Prostate cancer 1998, status post prostatectomy. 12. Gastroesophageal reflux. 13. Severe peripheral arterial disease with post right lower leg stenting. 14. Moderately severe peripheral neuropathy. 15. Generalized osteoarthritis. 16. Anxiety, depression, which is stable. A 76-year-old white male that was admitted with shortness of breath and hemoptysis, brought in and hemoptysis was quite severe. Dr. Sol. .support associate, took the patient down, did a bronch and followed right endobronchial lesion, biopsy ended up being small cell carcinoma. The patient after that period of time his hemoglobins were serially watched. Radiation therapy was consulted. They came in and radiated the lesion and it is with a moderate decrease in hemoptysis. Medical oncologist Dr. Figueroa saw him and planned for chemotherapy is to be carried on in the future. A PET scan and MRI of the brain is still to be completed. At this period of time, his review of systems: CARDIOPULMONARY: Still bringing up a minimal amount of hemoptysis. He has no shortness of breath, chest pain, orthopnea, paroxysmal nocturnal dyspnea. He does have a history of paroxysmal atrial fibrillation. GI: No hematemesis, melena, hematochezia. Constipation is present. : Normal urination. History of prostate cancer. NEUROMUSCULAR: Has weakness of both the arms and legs and especially his right leg which he has had severe arterial disease. SKIN/INTEGUMENTARY: He does have bruising excessive and dry skin. PSYCHIATRIC: The patient states he is not depressed and not too anxious. PHYSICAL EXAMINATION: Vital show blood pressure of 138/80, respiratory rate is 16, heart rates in the 60s, temperature 98.6. EYES: Pupils are equal, round, and reactive to light and accommodation. ENT: Showed tympanic membranes and pharynx to be negative. Neck is supple with midline trachea. CHEST: Actually at this time is pretty clear bilaterally. No rales. No rhonchi. HEART: Sinus rhythm even though he has a history of intermittent atrial fibrillation. ABDOMEN: Soft, nontender with no organomegaly. Lower extremities he has decreased pulses in both lower extremities. His feet are warm. His hands are warm. Rectal examination deferred. Back examination shows range of motion of the lower back is within normal limits. Cervical spine range of motion is within normal limits. Skin/integumentary is dry. He has bruising throughout. He also has some stasis dermatitis in the lower legs. Vascular is decreased pulses in the lower legs. PSYCHIATRIC: The patient has good affect, alert, well orientated to person, place, and thing and states that he would like to go home. His lab today basically shows a hemoglobin of 9.1, ( ) 10.9, and his platelet count is at 96,000. Potassium 3.6. His sugars are fine. All within normal limits. Creatinine at this time is 1.18 and his BUN is 29. Our plan is to discharge home because of his previous medications he is not to take the Eliquis. He is also not to take his Plavix instead until the hemoptysis has stopped. He ill be on Lovenox 40 mg subcu b.i.d. His updrafts have been stopped. His [place] 10/325, he can use as needed for his back pain. 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 He will stay on lisinopril 2.5, Lopressor 50 b.i.d., Theragran vitamin, Ditropan he stays on 5 four times a day. Protonix we gave him a script for 40 mg b.i.d., MiraLAX he using B12. He is using Aldactone 25 mg, Vitamin E. His activity is minimal. He can do a little bit of walking at home. His diet is irregular. Radiation therapy is set up for tomorrow morning. He will follow up with both Dr. Sol and Dr. Figueroa sometime this week. He will see me in 2 weeks. Any questions, they can call me. His prognosis is guarded.
== END 2017-02-23 15:07 | disposition home health service (06) | DRG 167 ==
LOC: EC 17:44 → 4MS4W 19:24 → 6SEL 02-18 15:09 → 5ONC 02-21 19:37
PROVIDERS: ADMIT Family Medicine; ATTEND Family Medicine
PROC: 0B948ZX Drainage of Right Upper Lobe Bronchus, Via Natural or Artificial Opening Endoscopic, Diagnostic (ICD-10-PCS; principal; 2017-02-19 13:30)
PROC: 0BBC8ZX Excision of Right Upper Lung Lobe, Via Natural or Artificial Opening Endoscopic, Diagnostic (ICD-10-PCS; 2017-02-19 13:30)
DX: C34.11 Malignant neoplasm of upper lobe, right bronchus or lung (principal); E87.2 Acidosis; C77.9 Secondary and unspecified malignant neoplasm of lymph node, unspecified; D69.6 Thrombocytopenia, unspecified; E87.8 Other disorders of electrolyte and fluid balance, not elsewhere classified; N18.3 Chronic kidney disease, stage 3 (moderate); D51.9 Vitamin B12 deficiency anemia, unspecified; I48.0 Paroxysmal atrial fibrillation; G62.9 Polyneuropathy, unspecified; I48.2 Chronic atrial fibrillation; F32.9 Major depressive disorder, single episode, unspecified; I12.9 Hypertensive chronic kidney disease with stage 1 through stage 4 chronic kidney disease, or unspecified chronic kidney disease; E78.5 Hyperlipidemia, unspecified; F41.9 Anxiety disorder, unspecified; I25.10 Atherosclerotic heart disease of native coronary artery without angina pectoris; I25.2 Old myocardial infarction; I25.5 Ischemic cardiomyopathy; I73.9 Peripheral vascular disease, unspecified; K21.9 Gastro-esophageal reflux disease without esophagitis; K59.00 Constipation, unspecified; M15.9 Polyosteoarthritis, unspecified; D50.9 Iron deficiency anemia, unspecified; N39.3 Stress incontinence (female) (male); Z79.02 Long term (current) use of antithrombotics/antiplatelets; Z79.82 Long term (current) use of aspirin; Z79.899 Other long term (current) drug therapy; Z79.01 Long term (current) use of anticoagulants; Z85.46 Personal history of malignant neoplasm of prostate; Z86.14 Personal history of Methicillin resistant Staphylococcus aureus infection; Z95.1 Presence of aortocoronary bypass graft; Z95.810 Presence of automatic (implantable) cardiac defibrillator; Z96.652 Presence of left artificial knee joint; Z95.5 Presence of coronary angioplasty implant and graft; Z87.891 Personal history of nicotine dependence
CPT/HCPCS: 31623; 31624; 31625; 70460; 77295; 77300; 77332; 77334; 77370; 77387; 77412; 80048; 82607; 82728; 82747; 83036; 83540; 83550; 85025; 85027; 85730; 86701; 86704; 86803; 87070; 87205; 87340; 88104; 88108; 88305; 88341; 88342; 89050; 94640; 96365; 96375; 99285

== ENCOUNTER → 2017-03-01 | Outpatient (CLI) | payer MEDICARE, OTHER ==
--- NOTE | 2017-03-02 09:32 | PE ---
EXAMINATION TYPE: PET CT fusion skull to thigh DATE OF EXAM: 03/01/2017 12:12 PM CLINICAL HISTORY: 76-year-old male lung cancer, initial staging. Patient is status post [facility], last treatment on 02/28/2017. TECHNIQUE: Following the intravenous administration of 15.32 mCi of F-18 FDG, whole body images are performed from the skull base to the midthigh. Images are reviewed on the computer in the coronal, axial, and sagittal planes. Reconstructed rotating images are created on independent workstation and reviewed on the computer. A localization and attenuation correction CT is performed in conjunction with the PET scan. Glucose level: 75 mg/dL CTDI: 5.18 mGy DLP: 461.34 mGy-cm COMPARISON: Correlation outside CT chest 02/17/2017 FINDINGS: PET: Physiologic FDG uptake within the neck. Median sternotomy wires with post-CABG clips in the mediastinum. The median sternotomy shows linear i ncreased variable mild to moderate FDG uptake, maximal SUV 4.4, likely on a postsurgical basis. Corre lation can be made as to time since surgery. Redemonstrated abnormal right hilar and right suprahilar soft tissue. The soft tissue located just ab ove the right main pulmonary artery shows shows mild to moderate rim of increased FDG uptake with tootie tral photopenia. The rim has maximal SUV of 3.7 and treated tumor measuring 3.5 cm is suggested. However, there is soft tissue filling defect within the distal right mainstem bronchus extending into the right upper lobe bronchus. This filling defect shows intense FDG uptake, maximal SUV 5.6 and the metabolic portion measures approximately 2.4 cm wide by 2.0 cm craniocaudal. Adjacent precarinal lymph node measures 1.5 cm short axis versus 2.3 cm on 02/18/2016 and shows modera te FDG uptake, maximal SUV 4.7. An adjacent right paratracheal lymph node is enlarged measuring 2.0 cm short axis versus 2.7 cm on and shows intense FDG uptake, maximum SUV 6.6. In addition, there is a 2.0 cm pulmonary nodule at the right apex which shows moderate hypermetabolis m, maximal SUV 4.1 that is suspicious. There is some groundglass, reticulations, and subtle nodularity within portions of the remaining righ t upper lobe showing mild uptake, maximal SUV 1.7 probably in part reflecting posttreatment change There is some circumferential thickening of the esophagus at the level of the subcarinal region that could reflect posttreatment edema. No focal increased activity here. Mild FDG uptake along the right posterolateral basilar pleura, maximal SUV 2.8, likely posttreatment change. Focal mild FDG uptake at the distal esophagus, maximal SUV 2.7 likely physiologic. Variable bowel activity with some segments of intense activity likely physiologic. ATTENUATION CORRECTION CT: Some lobulated mucosal thickening posterior right maxillary sinus. Mastoid air cells are pneumatized. No cervical lymphadenopathy seen. Left anterior chest wall AICD generator with right ventricular lead. The heart is borderline enlarged without pericardial effusion. Ascending aortic is borderline ectatic and 3.5 cm. 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 There is mild emphysematous change and prominent ar eas of dependent atelectasis. No pleural effusion. Extrarenal pelves on both sides. Adrenal glands are clear. No dilated small bowel, free fluid, or yi e air. No mesenteric or retroperitoneal lymphadenopathy. Normal appendix. Dense calcifications in the region of the prostate bed, likely posttreatment and postsurgical change. Bladder is nondistended. Surgical clips along the pelvic floor suggests treatment for prior prostate cancer. No abnormal fluid collection in the pelvis or pelvic lymphadenopathy. Bones: Degenerative changes at the hips. Degenerative changes lower lumbar spine and endplate spondyl osis mid to lower thoracic spine. IMPRESSION: 1. Continued follow up is recommended. A 3.5 cm area of abnormal soft tissue in the right hilum just above the right main pulmonary artery shows central photopenia and a rim of mild to moderate uptake s uggesting treated disease. 2. However, there is a soft tissue filling defect within the distal right mainstem bronchus extending into the right upper lobe bronchus measuring approximately 2.4 cm that shows intense hypermetabolism (max SUV 5.6) that could represent residual disease. Additional 2 cm right apical pulmonary nodule s hows moderate hypermetabolism and also suggests neoplasm. 3. Enlarged precarinal lymph node measures 1.5 cm short axis versus 2.3 cm on 02/17/2017 with moderate hypermetabolism. Decreasing size from the recent exam suggests continuing posttreatment change. Espinosa amanda, the degree of activity makes residual neoplasm difficult to exclude at this time. 4. Similarly, an enlarged 2.0 cm right paratracheal lymph node has also decreased from 2.7 cm on 02/17 but shows intense hypermetabolism (max SUV 6.6). 5. Some mild uptake along the posterior basilar right pleural and scattered throughout the right uppe r lobe probably post radiation therapy change. Mild and moderate linear uptake along the patient's m edian sternotomy likely post surgical. Query as to time since patient's surgery. 6. Surgical changes within the pelvis suggesting prior treatment for prostate cancer.
== END | disposition home or self-care (01) ==
LOC: RADPETMAIN 09:08
PROVIDERS: ATTEND Internal Medicine Hematology & Oncology
DX: R91.1 Solitary pulmonary nodule (principal); C34.90 Malignant neoplasm of unspecified part of unspecified bronchus or lung; R59.0 Localized enlarged lymph nodes; R94.2 Abnormal results of pulmonary function studies; Z98.890 Other specified postprocedural states
CPT/HCPCS: 78815; A9552

== ENCOUNTER 2017-03-18 20:39 | Inpatient (IN) | payer MEDICARE, OTHER ==
[2017-03-18] MEDS ORDERED: ACETAMINOPHEN TAB 325 MG TAB PO STA (21:07)
[2017-03-18] MEDS ORDERED: PIPERACILLIN-TAZOBACTAM 3.375 GM in DEXTROSE/WATER 1 50ML.BAG IVPB STA (21:07)
[2017-03-18] MEDS: SODIUM CHLORIDE 0.9% 500 ML IV SCH ×2 (21:16→21:17)
[2017-03-18] MEDS ORDERED: SODIUM CHLORIDE 0.9% 1,000 ML IV ONE (21:23)
[2017-03-18] MEDS ORDERED: IV VANCOMYCIN PER PHARMACY 1 EACH MISC MISCELLANE PRN (21:24)
[2017-03-18] MEDS ORDERED: CEFEPIME 2 GM in SODIUM CHLORIDE 0.9% 50 ML IVPB STA (21:25)
--- NOTE | 2017-03-18 21:30 | ED ---
SOB HPI - General Chief Complaint: Shortness of Breath Stated Complaint: TRINA Time Seen by Provider: 03/18/17 21:05 Source: patient, family (Daughter) Mode of arrival: EMS Limitations: altered mental status (Patient appears delirious) - History of Present Illness Initial Comments: Patient is not able to give much history. Per the patient's daughter he started chemotherapy last week, for lung cancer, as well as having radiation treatment. She states that over the past few days he has been not able to eat or drink much due to pain with swallowing. The patient is not able to characterize the pain well but indicates substernal area. He also had appeared short of breath going on over the past couple days, worse today. Also having generalized weakness and fatigue and shaky. Again the patient not able to further characterize the symptoms. In reviewing the papers from the outside hospital, it appears things been getting progressively worse over a number of days to week. MD Complaint: shortness of breath -: days(s) Consistency: constant Known History Of: other (Lung cancer) - Related Data Home Medications Medication Instructions Recorded Confirmed Omeprazole [PriLOSEC] 20 mg PO BID 05/26/15 03/18/17 Atorvastatin [Lipitor] 80 mg PO DAILY 08/15/15 03/18/17 Ferrous Sulfate [Iron (65 MG 325 mg PO DAILY 12/19/15 03/18/17 Elemental)] Oxybutynin Chloride [Ditropan] 5 mg PO QID 12/19/15 03/18/17 Docusate [Colace] 100 mg PO TID 01/01/16 03/18/17 Pyridoxine [Vitamin B-6] 100 mg PO DAILY 08/26/16 03/18/17 Lisinopril [Zestril] 2.5 mg PO DAILY 01/23/17 03/18/17 Metoprolol Tartrate [Lopressor] 50 mg PO TID 02/17/17 03/18/17 Multivitamins, Thera [Multivitamin 1 tab PO DAILY 02/17/17 03/18/17 (formulary)] Spironolactone [Aldactone] 25 mg PO DAILY@0800 02/17/17 03/18/17 Cholecalciferol [Vitamin D3] 2,000 unit PO DAILY 03/12/17 03/18/17 Fluconazole [Diflucan] 100 mg PO DAILY 03/12/17 03/18/17 Fluticasone/Vilanterol [Breo 1 puff INHALATION RT-DAILY 03/12/17 03/18/17 Ellipta 200-25 Mcg INH] Ipratropium/Albuterol Sulfate 1 puff INHALATION RT-QID 03/12/17 03/18/17 [Combivent Respimat Inhaler] Ondansetron [Zofran] 4 mg PO Q12HR PRN 03/12/17 03/18/17 Polyethylene Glycol 3350 [Miralax] 17 gm PO DAILY 03/12/17 03/18/17 Vitamin E 400 unit PO DAILY 03/12/17 03/18/17 Apixaban [Eliquis] 2.5 mg PO BID 03/18/17 03/18/17 Gabapentin 600 mg PO QID 03/18/17 03/18/17 Previous Rx's Medication Instructions Recorded Vancomycin 1,500 mg IVPB Q24H vial 04/01/17 Allergies Allergy/AdvReac Type Severity Reaction Status Date / Time No Known Allergies Allergy Verified 03/18/17 22:34 Review of Systems ROS Statement: Those systems with pertinent positive or pertinent negative responses have been documented in the HPI. ROS Other: All systems not noted in ROS Statement are negative. 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 FEBRUARY 2016/ "STENT" LOW LEFT LEG/ INSOMNIA/ RADIATION MARCH 2017 Last Myocardial Infarction Date:: 05/27/15 History of Any Multi-Drug Resistant Organisms: MRSA Date of last positivie culture/infection: 09/2015 MDRO Source:: RIGHT TESTICLE Past Surgical History: Coronary Bypass/CABG, Joint Replacement, Prostate Surgery , Tonsillectomy Additional Past Surgical History / Comment(s): left thumb surgery., CABG (), BALLOON ANGIOPLASTY W/ STENT TO LT SFA (08/16/15), lt total knee, prostatectomy, 01/23/17 ICD Past Anesthesia/Blood Transfusion Reactions: No Reported Reaction Past Psychological History: Anxiety, Depression Additional Psychological History / Comment(s): TAKES NO MEDICATION Smoking Status: Former smoker Past Alcohol Use History: Occasional Additional Past Alcohol Use History / Comment(s): STARTED SMOKING AT AGE 15 QUIT SMOKING 2014 SMOKED 1 -1 1/2PPD Past Drug Use History: None Reported - Past Family History Father History Unknown: Yes Family Medical History: No Reported History Additional Family Medical History / Comment(s): young Mother Family Medical History: No Reported History Additional Family Medical History / Comment(s): young General Exam Limitations: no limitations General appearance: alert, in distress Head exam: Present: atraumatic, normocephalic Eye exam: Present: normal appearance. Absent: scleral icterus, conjunctival injection ENT exam: Present: mucous membranes dry Neck exam: Present: normal inspection Respiratory exam: Present: respiratory distress (Tachypnea), rales, rhonchi. Absent: wheezes, stridor, prolonged expiratory Cardiovascular Exam: Present: tachycardia, normal heart sounds. Absent: systolic murmur, diastolic murmur, rubs, gallop GI/Abdominal exam: Present: soft. Absent: distended, tenderness, guarding, rebound, mass Extremities exam: Present: normal inspection, normal capillary refill. Absent: pedal edema, calf tenderness Back exam: Present: normal inspection. Absent: CVA tenderness (R), CVA tenderness (L) Neurological exam: Present: altered, CN II-XII intact, other (Patient is able to answer simple direct yes and no questions and moves all 4 extremities to simple commands without apparent focal deficit. He is oriented to person and place not time). Absent: oriented X3, motor sensory deficit Skin exam: Present: warm, dry, intact, pallor. Absent: rash Course Vital Signs 03/18/17 03/18/17 03/18/17 20:46 21:54 22:14 Temperature 101.3 F H 100.7 F H Pulse Rate 140 H 138 H 128 H Pulse Rate [ Apical] Respiratory 24 24 Rate Blood Pressure 127/58 98/50 102/57 O2 Sat by Pulse 92 L 94 L Oximetry 03/18/17 03/18/17 03/18/17 22:43 23:05 23:19 Temperature Pulse Rate 118 H 140 H 136 H Pulse Rate [ Apical] Respiratory 22 22 24 Rate Blood Pressure 130/84 114/72 112/52 O2 Sat by Pulse 96 96 96 Oximetry 03/18/17 03/19/17 03/19/17 23:42 00:47 01:15 Temperature 100.8 F H Pulse Rate 138 H 123 H 126 H Pulse Rate [ Apical] Respiratory 24 22 22 Rate Blood Pressure 116/57 117/49 118/60 O2 Sat by Pulse 96 100 100 Oximetry 03/19/17 03/19/17 03/19/17 02:06 03:20 05:29 Temperature 98.8 F 101.1 F H Pulse Rate 130 H 120 H 126 H Pulse Rate [ Apical] Respiratory 20 20 22 Rate Blood Pressure 109/56 123/56 142/84 O2 Sat by Pulse 100 98 100 Oximetry 03/19/17 03/19/17 03/19/17 06:26 07:08 07:16 Temperature 98.4 F Pulse Rate 114 H 117 H 106 H Pulse Rate [ Apical] Respiratory 22 16 Rate Blood Pressure 130/54 101/53 O2 Sat by Pulse 98 Oximetry 03/19/17 03/19/17 03/19/17 07:18 08:23 08:39 Temperature 97.1 F L Pulse Rate 109 H 104 H 112 H Pulse Rate [ Apical] Respiratory 18 18 Rate Blood Pressure 100/59 104/53 O2 Sat by Pulse 98 98 Oximetry 03/19/17 03/19/17 03/19/17 10:01 10:24 10:57 Temperature 98.7 F 98.1 F Pulse Rate 99 74 Pulse Rate [ Apical] Respiratory 16 16 16 Rate Blood Pressure 104/53 149/111 O2 Sat by Pulse 98 98 Oximetry 03/19/17 03/19/17 03/19/17 11:15 11:27 11:41 Temperature 97.1 F L Pulse Rate 89 87 93 Pulse Rate [ Apical] Respiratory 17 18 Rate Blood Pressure 95/55 O2 Sat by Pulse 100 100 Oximetry 03/19/17 03/19/17 03/19/17 12:05 12:23 13:07 Temperature 99.0 F 97.4 F L 98.6 F Pulse Rate 85 109 H 105 H Pulse Rate [ Apical] Respiratory 18 18 18 Rate Blood Pressure 95/55 89/52 84/53 O2 Sat by Pulse 100 100 100 Oximetry 03/19/17 03/19/17 03/19/17 14:00 14:20 14:52 Temperature Pulse Rate 109 H 131 H 111 H Pulse Rate [ Apical] Respiratory 22 26 H Rate Blood Pressure 90/53 151/66 120/56 O2 Sat by Pulse 100 99 Oximetry 03/19/17 03/19/17 03/19/17 15:33 16:20 16:26 Temperature 97.7 F Pulse Rate 111 H 121 H 120 H Pulse Rate [ Apical] Respiratory 16 20 Rate Blood Pressure 111/58 95/53 O2 Sat by Pulse 98 98 Oximetry 03/19/17 03/19/17 03/19/17 16:37 17:11 18:20 Temperature 97.8 F 100.4 F H Pulse Rate 125 H 127 H 128 H Pulse Rate [ Apical] Respiratory 18 18 Rate Blood Pressure 106/54 127/57 O2 Sat by Pulse 98 98 Oximetry 03/19/17 03/19/17 03/19/17 18:56 19:00 19:10 Temperature 100.8 F H Pulse Rate 123 H Pulse Rate [ Apical] Respiratory 16 Rate Blood Pressure 96/50 96/50 107/53 O2 Sat by Pulse 100 Oximetry 03/19/17 03/19/17 03/19/17 19:11 19:15 19:21 Temperature 100.8 F H 99.3 F Pulse Rate 120 H 111 H Pulse Rate [ 125 H Apical] Respiratory 16 16 Rate Blood Pressure 107/83 119/57 O2 Sat by Pulse Oximetry Medical Decision Making - Lab Data Result diagrams: 04/02/17 05:06 04/02/17 05:06 Lab Results 03/18/17 03/18/17 03/18/17 Range/Units 17:47 21:10 21:10 WBC 0.2 L* (3.8-10.6) k/uL RBC 2.44 L (4.30-5.90) m/uL Hgb 8.4 L (13.0-17.5) gm/dL Hct 24.5 L (39.0-53.0) % MCV 100.5 H D (80.0-100.0) fL MCH 34.3 (25.0-35.0) pg MCHC 34.1 (31.0-37.0) g/dL RDW 13.6 (11.5-15.5) % Plt Count 67 L D (150-450) k/uL Neutrophils % 27 % Lymphocytes % 58 % Monocytes % 6 % Eosinophils % 3 % Basophils % 3 % Neutrophils # 0.1 L (1.3-7.7) k/uL Lymphocytes # 0.1 L (1.0-4.8) k/uL Monocytes # 0.0 (0-1.0) k/uL Eosinophils # 0.0 (0-0.7) k/uL Basophils # 0.0 (0-0.2) k/uL Macrocytosis Slight PT (9.0-12.0) sec INR (<1.1) APTT (22.0-30.0) sec Sodium 139 (137-145) mmol/L Potassium 5.0 (3.5-5.1) mmol/L Chloride 108 H (98-107) mmol/L Carbon Dioxide 21 L (22-30) mmol/L Anion Gap 10 mmol/L BUN 41 H (9-20) mg/dL Creatinine 1.41 H (0.66-1.25) mg/dL Est GFR (MDRD) Af Amer 60 (>60 ml/min/1.73 sqM) Est GFR (MDRD) Non-Af 49 (>60 ml/min/1.73 sqM) Glucose 144 H (74-99) mg/dL Plasma Lactic Acid Arnaldo (0.7-2.0) mmol/L Calcium 8.7 (8.4-10.2) mg/dL Total Bilirubin 0.8 (0.2-1.3) mg/dL AST 26 (17-59) U/L ALT 40 (21-72) U/L Alkaline Phosphatase 150 H (38-126) U/L Troponin I (0.000-0.034) ng/mL Total Protein 6.9 (6.3-8.2) g/dL Albumin 3.7 (3.5-5.0) g/dL Urine Color Urine Appearance (Clear) Urine pH (5.0-8.0) Ur Specific May (1.001-1.035) Urine Protein (Negative) Urine Glucose (UA) (Negative) Urine Ketones (Negative) Urine Blood (Negative) Urine Nitrite (Negative) Urine Bilirubin (Negative) Urine Urobilinogen (<2.0) mg/dL Ur Leukocyte Esterase (Negative) Blood Type O Negative Blood Type Recheck No Antibody Screen NEGATIVE Crossmatch See Detail Spec Expiration Date 03/21/2017201603/18/17 03/18/17 03/18/17 Range/Units 21:10 21:10 21:10 WBC (3.8-10.6) k/uL RBC (4.30-5.90) m/uL Hgb (13.0-17.5) gm/dL Hct (39.0-53.0) % MCV (80.0-100.0) fL MCH (25.0-35.0) pg MCHC (31.0-37.0) g/dL RDW (11.5-15.5) % Plt Count (150-450) k/uL Neutrophils % % Lymphocytes % % Monocytes % % Eosinophils % % Basophils % % Neutrophils # (1.3-7.7) k/uL Lymphocytes # (1.0-4.8) k/uL Monocytes # (0-1.0) k/uL Eosinophils # (0-0.7) k/uL Basophils # (0-0.2) k/uL Macrocytosis PT 11.9 (9.0-12.0) sec INR 1.2 (<1.1) APTT 79.8 H (22.0-30.0) sec Sodium (137-145) mmol/L Potassium (3.5-5.1) mmol/L Chloride (98-107) mmol/L Carbon Dioxide (22-30) mmol/L Anion Gap mmol/L BUN (9-20) mg/dL Creatinine (0.66-1.25) mg/dL Est GFR (MDRD) Af Amer (>60 ml/min/1.73 sqM) Est GFR (MDRD) Non-Af (>60 ml/min/1.73 sqM) Glucose (74-99) mg/dL Plasma Lactic Acid Arnaldo 1.3 (0.7-2.0) mmol/L Calcium (8.4-10.2) mg/dL Total Bilirubin (0.2-1.3) mg/dL AST (17-59) U/L ALT (21-72) U/L Alkaline Phosphatase (38-126) U/L Troponin I 0.017 (0.000-0.034) ng/mL Total Protein (6.3-8.2) g/dL Albumin (3.5-5.0) g/dL Urine Color Urine Appearance (Clear) Urine pH (5.0-8.0) Ur Specific May (1.001-1.035) Urine Protein (Negative) Urine Glucose (UA) (Negative) Urine Ketones (Negative) Urine Blood (Negative) Urine Nitrite (Negative) Urine Bilirubin (Negative) Urine Urobilinogen (<2.0) mg/dL Ur Leukocyte Esterase (Negative) Blood Type Blood Type Recheck Antibody Screen Crossmatch Spec Expiration Date 03/18/17 Range/Units 21:50 WBC (3.8-10.6) k/uL RBC (4.30-5.90) m/uL Hgb (13.0-17.5) gm/dL Hct (39.0-53.0) % MCV (80.0-100.0) fL MCH (25.0-35.0) pg MCHC (31.0-37.0) g/dL RDW (11.5-15.5) % Plt Count (150-450) k/uL Neutrophils % % Lymphocytes % % Monocytes % % Eosinophils % % Basophils % % Neutrophils # (1.3-7.7) k/uL Lymphocytes # (1.0-4.8) k/uL Monocytes # (0-1.0) k/uL Eosinophils # (0-0.7) k/uL Basophils # (0-0.2) k/uL Macrocytosis PT (9.0-12.0) sec INR (<1.1) APTT (22.0-30.0) sec Sodium (137-145) mmol/L Potassium (3.5-5.1) mmol/L Chloride (98-107) mmol/L Carbon Dioxide (22-30) mmol/L Anion Gap mmol/L BUN (9-20) mg/dL Creatinine (0.66-1.25) mg/dL Est GFR (MDRD) Af Amer (>60 ml/min/1.73 sqM) Est GFR (MDRD) Non-Af (>60 ml/min/1.73 sqM) Glucose (74-99) mg/dL Plasma Lactic Acid Arnaldo (0.7-2.0) mmol/L Calcium (8.4-10.2) mg/dL Total Bilirubin (0.2-1.3) mg/dL AST (17-59) U/L ALT (21-72) U/L Alkaline Phosphatase (38-126) U/L Troponin I (0.000-0.034) ng/mL Total Protein (6.3-8.2) g/dL Albumin (3.5-5.0) g/dL Urine Color Yellow Urine Appearance Clear (Clear) Urine pH 6.0 (5.0-8.0) Ur Specific May 1.029 (1.001-1.035) Urine Protein Trace H (Negative) Urine Glucose (UA) Negative (Negative) Urine Ketones Negative (Negative) Urine Blood Negative (Negative) Urine Nitrite Negative (Negative) Urine Bilirubin Negative (Negative) Urine Urobilinogen <2.0 (<2.0) mg/dL Ur Leukocyte Esterase Negative (Negative) Blood Type Blood Type Recheck Antibody Screen Crossmatch Spec Expiration Date - EKG Data -: EKG Interpreted by [facility] EKG shows normal: sinus rhythm, axis (Normal) Rate: tachycardia Interpretation: other (The underlying rhythm appears to be atrial flutter with a 2-1 conduction and a rate of approximately 140 bpm.) Critical Care Time Critical Care Time: Yes (45 minutes) Disposition Clinical Impression: Febrile neutropenia, Pancytopenia due to antineoplastic chemotherapy, Pneumonia , Atrial flutter with rapid ventricular response Disposition: ADMITTED IP TO THIS [facility] Condition: Serious
[2017-03-18] MEDS: DILTIAZEM 125 MG in SODIUM CHLORIDE 0.9% 100 ML IV ONE (21:40)
[2017-03-18 21:45] LABS: Basophils % (A) 3 %; CH 34.7; CHCM 34.7; Eosinophils % (A) 3 %; HCT 24.5 % (39.0-53.0); HGB 8.4 gm/dL (13.0-17.5); Luc # (Auto) 0.01; Luc % (Auto) 4; Lymphocytes # (A) 0.1 k/uL (1.0-4.8); Lymphocytes % (A) 58 %; MCH 34.3 pg (25.0-35.0); MCHC 34.1 g/dL (31.0-37.0); Macrocytosis Slight; Mean Platelet Volume 9.1; Monocytes % (A) 6 %; Neutrophils # (A) 0.1 k/uL (1.3-7.7); Neutrophils % (A) 27 %; RBC 2.44 m/uL (4.30-5.90); RDW 13.6 % (11.5-15.5); WBC (Perox) 0.23
[2017-03-18] MEDS ORDERED: VANCOMYCIN 1,750 MG in SODIUM CHLORIDE 0.9% 250 ML IVPB STA (21:45)
[2017-03-18 21:47] LABS: INR 1.2 (<1.1); Prothrombin Time 11.9 sec (9.0-12.0)
[2017-03-18 21:53] LABS: MCV 100.5 fL (80.0-100.0); WBC 0.2 k/uL (3.8-10.6)
[2017-03-18 21:55] LABS: Calcium 8.7 mg/dL (8.4-10.2); Total Bilirubin 0.8 mg/dL (0.2-1.3); Total Protein 6.9 g/dL (6.3-8.2)
[2017-03-18 22:03] LABS: Appearance,Urine Clear (Clear); Bilirubin,Urine Negative (Negative); Glucose,Urine (UA) Negative (Negative); Ketones,Urine Negative (Negative); Leukocyte Esterase,Urine Negative (Negative); Nitrite,Urine Negative (Negative); Protein,Urine Trace (Negative); Specific Gravity,Urine 1.029 (1.001-1.035); UA Billing (MACRO vs. MICRO) CHEM; Urobilinogen,Urine <2.0 mg/dL (<2.0)
[2017-03-18 22:06] LABS: Partial Thromboplastin Time 79.8 sec (22.0-30.0)
[2017-03-18] MEDS ORDERED: HYDROmorphone 1 MG/ML 1 ML SYRINGE IVP STA (22:18)
--- NOTE | 2017-03-18 22:19 | XR ---
EXAMINATION TYPE: XR chest 1V portable DATE OF EXAM: 03/18/2017 9:38 PM COMPARISON: Outside chest x-ray and CTA chest earlier today. Recent PET CT March 01, 2017. HISTORY: Fever, cough, and shortness of breath. Known lung cancer. TECHNIQUE: Single frontal view of the chest is obtained. FINDINGS: Sternal wires are redemonstrated. There is cardiomegaly with single lead pacemaker/AICD. Th ere is chronic emphysematous change without suspicious focal airspace opacity, pleural effusion, or p neumothorax seen. Right upper lung nodule and right hilar invasive mass with thoracic adenopathy are seen better on recent CT versus x-ray. Moderate to severe thickening of the midesophagus is noted on recent CT. IMPRESSION: Cardiomegaly and chronic emphysematous change without acute pulmonary process. Lung carc inoma and prominent mid esophageal wall thickening noted on recent CT.
[2017-03-18] MEDS ORDERED: NALOXONE 0.4 MG/ML 1 ML VIAL IV PRN (22:57)
[2017-03-18] MEDS: SODIUM CHLORIDE 0.9% 1,000 ML IV SCH (23:07)
[2017-03-18] MEDS ORDERED: HEPARIN SODIUM,PORCINE 5,000 UNIT/ML 1 ML VIAL IV PRN (23:07)
[2017-03-18] MEDS: HYDROmorphone 1 MG/ML 1 ML SYRINGE IVP PRN (23:10)
[2017-03-18] MEDS: LORazepam 2 MG/ML SYRINGE IV PRN (23:11)
[2017-03-18] MEDS: HEPARIN SODIUM,PORCINE/D5W PMX 25,000 UNIT in DEXTROSE/WATER 1 500ML.BAG IV SCH (23:39)
[2017-03-19] MEDS ORDERED: DILTIAZEM 5 MG/ML 5 ML VIAL IVP STA (00:29)
[2017-03-19] MEDS: HYDROmorphone 1 MG/ML 1 ML SYRINGE IVP PRN ×6 (02:36→22:56)
[2017-03-19 03:44] LABS: ALT 50 U/L (21-72); AST 40 U/L (17-59); Alkaline Phosphatase 147 U/L (38-126); Anion Gap 9 mmol/L; Blood Urea Nitrogen 34 mg/dL (9-20); Carbon Dioxide 17 mmol/L (22-30); Chloride 114 mmol/L (98-107); Glucose 134 mg/dL (74-99); Non-African American GFR(MDRD) 59 (>60 ml/min/1.73 sqM); Potassium 4.7 mmol/L (3.5-5.1); Sodium 140 mmol/L (137-145); Total Protein 5.9 g/dL (6.3-8.2)
[2017-03-19 03:50] LABS: Aty Lym Flag Moderate; CH 33.8; CHCM 31.9; HDW 2.98; HGB 7.1 gm/dL (13.0-17.5); Hypochromasia Slight; MCH 34.2 pg (25.0-35.0); MCHC 32.1 g/dL (31.0-37.0); Macrocytosis Moderate; Mean Platelet Volume 8.5; RBC 2.07 m/uL (4.30-5.90); RDW 13.2 % (11.5-15.5); WBC (Perox) 0.18
[2017-03-19 04:08] LABS: WBC 0.2 k/uL (3.8-10.6)
[2017-03-19 04:11] LABS: MCV 106.5 fL (80.0-100.0)
[2017-03-19] MEDS: ACETAMINOPHEN TAB 325 MG TAB PO PRN ×2 (05:26→18:47)
[2017-03-19 06:07] LABS: Add Differential Manual Differential
[2017-03-19 06:10] LABS: Manual Review Performed
[2017-03-19] MEDS: SYMBICORT 160-4.5 MCG INHALER INHALATION SCH (07:07)
[2017-03-19] MEDS: IPRATROPIUM-ALBUTEROL 3 ML NEB INHALATION SCH ×4 (07:07→20:30)
[2017-03-19] MEDS: CEFEPIME 2 GM in SODIUM CHLORIDE 0.9% 50 ML IVPB SCH ×3 (08:36→23:45)
[2017-03-19] MEDS ORDERED: FAMOTIDINE 20 MG TAB PO SCH (09:00)
[2017-03-19] MEDS ORDERED: FLUCONAZOLE 100 MG TAB PO SCH (09:00)
[2017-03-19] MEDS ORDERED: VANCOMYCIN 1,500 MG in SODIUM CHLORIDE 0.9% 250 ML IVPB SCH (09:00)
[2017-03-19] MEDS: VANCOMYCIN 1,500 MG in SODIUM CHLORIDE 0.9% 250 ML IVPB SCH (09:45)
[2017-03-19] MEDS: SODIUM CHLORIDE 0.9% 1,000 ML IV SCH ×3 (09:53→23:47)
[2017-03-19] MEDS ORDERED: SODIUM CHLORIDE 0.9% 1,000 ML IV ONE (13:49)
[2017-03-19] MEDS: LISINOPRIL 2.5 MG TAB PO SCH (14:01)
[2017-03-19] MEDS: GABAPENTIN 300 MG CAP PO SCH ×3 (14:01→21:50)
[2017-03-19] MEDS: PANTOPRAZOLE 40 MG TABLET PO SCH ×2 (14:01→20:26)
[2017-03-19] MEDS: DOCUSATE 100 MG CAP PO SCH ×3 (14:02→21:50)
[2017-03-19] MEDS: FERROUS SULFATE 325 MG TAB PO SCH (14:02)
[2017-03-19] MEDS: CHOLECALCIFEROL 1,000 UNIT TAB PO SCH (14:03)
[2017-03-19] MEDS: SPIRONOLACTONE 25 MG TAB PO SCH (14:03)
[2017-03-19] MEDS: ATORVASTATIN 80 MG TAB PO SCH (14:03)
[2017-03-19] MEDS: VITAMIN E (DL,TOCOPHERYL ACET) 400 UNIT CAP PO SCH (14:04)
[2017-03-19] MEDS: FILGRASTIM-SNDZ 480 MCG/0.8 ML SYRINGE SQ SCH ×2 (14:04→20:26)
[2017-03-19] MEDS: PYRIDOXINE 50 MG TAB PO SCH (14:05)
[2017-03-19] MEDS: OXYBUTYNIN CHLORIDE 5 MG TAB PO SCH ×3 (14:06→21:50)
[2017-03-19] MEDS: METOPROLOL TARTRATE 50 MG TAB PO SCH (14:06)
[2017-03-19] MEDS: MULTIVITAMINS, THERA 1 EACH TAB PO SCH (14:06)
[2017-03-19] MEDS: MAG HYDROX/AL HYDROX/SIMETH 30 ML, diphenhydrAMINE ELIXIR 75 MG, LIDOCAINE VISCOUS 30 ML PO SCH ×6 (14:13→21:45)
[2017-03-19] MEDS: DILTIAZEM 125 MG in SODIUM CHLORIDE 0.9% 100 ML IV ONE (14:23)
--- NOTE | 2017-03-19 15:25 | P.HPIM ---
History of Present Illness H&P Date: 03/19/17 Chief Complaint: Shortness of breath Patient is a 76-year-old male, patient of Dr. Mulligan in the outpatient setting, with medical history significant for paroxysmal atrial fibrillation, GERD, hyperlipidemia, hypertension, coronary artery disease status post coronary artery bypass grafting in 2014 followed by stenting to the left SFA in August 2015, myocardial infarction, ischemic cardiomyopathy status post placement of internal cardiac defibrillator, prostate cancer status post prostatectomy in 1998, peripheral vascular disease status post stent placement to left lower extremity, osteoarthritis, severe peripheral neuropathy, and remote nicotine dependence. 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 Per chart and daughter, patient had been experiencing trouble with swallowing and increased shortness of breath over the last couple of days in addition to having generalized weakness, fatigue , and shakiness. Patient originally presented to [facility] where he underwent a CTA of the chest with evidence of cardiomegaly, right upper lung nodule and right hilar invasive mass with thoracic adenopathy; and moderate to severe thickening of the mid esophagus. Patient was transferred to [facility]. In the emergency department, patient was found to have evidence of febrile neutropenia and pancytopenia with evidence of acute renal failure. EKG on admission with evidence of atrial flutter with ventricular rate of 128. Patient was fluid resuscitated with 2 L of normal saline, started on IV antibiotics in the form of vancomycin, Zosyn, and Maxipime for empiric coverage, and started on IV Cardizem for rate control. Consults were requested for Dr. Figueroa for oncology service, Dr. Courtney for pulmonary service, and cardiology service. Review of Systems Constitutional: Reports fever, Reports poor appetite, Reports weakness Ears, nose, mouth and throat: Reports dysphagia Respiratory: Reports dyspnea Neurological: Reports change in mentation Endocrine: Reports fatigue Past Medical History Past Medical History: Atrial Fibrillation, Cancer, Heart Failure, GERD/Reflux, Hyperlipidemia, Hypertension, Myocardial Infarction (DC), Prostate Disorder, Renal Disease, Vascular Disorder Additional Past Medical History / Comment(s): PT HAD RECETN ADMIT TO [facility] 2016 WITH HEMOPTYSIS-SEVERE ANEMIA, THROMBOCYTOPENIA, PAROXYSMAL AFIB, RENAL FAILURE STAGE II. OTHER HX: SMALL CELL R LUNG CANCER WITH LYMPH NODE INVOLVEMENT/SMALL CELL CANCER ENDOBRONCHIAL LESTION WITH METS TO LYMPH NODES- RECENT RADIATION TX AND CHEMO, PROSTATE CANCER WITH SX, PERIPHERAL NEUROPATHY, MODERATE ISCHEMIC CARDIOMYOPATHY-EF 30% WITH AICD, HEMOPTYSIS INTERMITTENTLY PAST 2 YRS, PAD, ANEMIA-CHRONIC IRON/B12 DEFICIENCY. Last Myocardial Infarction Date:: 05/27/15 History of Any Multi-Drug Resistant Organisms: MRSA Date of last positivie culture/infection: 09/2015 MDRO Source:: RIGHT TESTICLE Past Surgical History: Coronary Bypass/CABG, Heart Catheterization, Joint Replacement, Orthopedic Surgery, Prostate Surgery, Tonsillectomy Additional Past Surgical History / Comment(s): 02/19/17 BRONCHOSCOPY WITH BAL/ BRUSHINGS/BX, 01/23/17 ICD, 05/26/15 4 VESSEL CABG, AORTAGRAM WITH BILATERAL RUNOFFS, PTBA WITH STENT L SFA, L TOTAL KNEE ARTHROPLASTY, L THUMB SX, 1998 PROSTATECTOMY. Past Anesthesia/Blood Transfusion Reactions: No Reported Reaction Past Psychological History: Anxiety, Depression Additional Psychological History / Comment(s): PT IS DEPRESSED OVER HIS MEDICAL CONDITION. PT STAYS WITH HIS ROVERTO DURING DAYS OF CANCER TREATMENT AND GOES HOME IF NO TREATMENT PLANNED. HE HAS HOME CARE. HE USES A WALKER IF GOING ANY DISTANCE. PT DRIVES. Smoking Status: Former smoker Past Alcohol Use History: Occasional Additional Past Alcohol Use History / Comment(s): STARTED SMOKING AT AGE 15 QUIT SMOKING 2014 SMOKED 1 -1 1/2PPD Past Drug Use History: None Reported - Past Family History Father History Unknown: Yes Family Medical History: No Reported History Additional Family Medical History / Comment(s): FATHER YOUNG IN A BOATING ACCIDENT. Mother Family Medical History: No Reported History Additional Family Medical History / Comment(s): young IN A MVA. Medications and Allergies Home Medications Medication Instructions Recorded Confirmed Type Omeprazole [PriLOSEC] 20 mg PO BID 05/26/15 03/18/17 History Atorvastatin [Lipitor] 80 mg PO DAILY 08/15/15 03/18/17 History Ferrous Sulfate [Iron (65 MG 325 mg PO DAILY 12/19/15 03/18/17 History Elemental)] Oxybutynin Chloride [Ditropan] 5 mg PO QID 12/19/15 03/18/17 History Docusate [Colace] 100 mg PO TID 01/01/16 03/18/17 History Pyridoxine [Vitamin B-6] 100 mg PO DAILY 08/26/16 03/18/17 History Lisinopril [Zestril] 2.5 mg PO DAILY 01/23/17 03/18/17 History Metoprolol Tartrate [Lopressor] 50 mg PO TID 02/17/17 03/18/17 History Multivitamins, Thera [Multivitamin 1 tab PO DAILY 02/17/17 03/18/17 History (formulary)] Spironolactone [Aldactone] 25 mg PO DAILY@0800 02/17/17 03/18/17 History Cholecalciferol [Vitamin D3] 2,000 unit PO DAILY 03/12/17 03/18/17 History Fluconazole [Diflucan] 100 mg PO DAILY 03/12/17 03/18/17 History Fluticasone/Vilanterol [Breo 1 puff INHALATION RT-DAILY 03/12/17 03/18/17 History Ellipta 200-25 Mcg INH] Ipratropium/Albuterol Sulfate 1 puff INHALATION RT-QID 03/12/17 03/18/17 History [Combivent Respimat Inhaler] Ondansetron [Zofran] 4 mg PO Q12HR PRN 03/12/17 03/18/17 History Polyethylene Glycol 3350 [Miralax] 17 gm PO DAILY 03/12/17 03/18/17 History Vitamin E 400 unit PO DAILY 03/12/17 03/18/17 History Apixaban [Eliquis] 2.5 mg PO BID 03/18/17 03/18/17 History Gabapentin 600 mg PO QID 03/18/17 03/18/17 History Allergies Allergy/AdvReac Type Severity Reaction Status Date / Time No Known Allergies Allergy Verified 03/18/17 22:34 Physical Exam Vitals: Vital Signs Temp Pulse Resp BP Pulse Ox 03/19/17 13:07 98.6 F 105 H 18 84/53 100 03/19/17 12:23 97.4 F L 109 H 18 89/52 100 03/19/17 12:05 99.0 F 85 18 95/55 100 03/19/17 11:41 97.1 F L 93 18 95/55 100 03/19/17 11:27 87 03/19/17 11:15 89 17 100 03/19/17 10:57 98.1 F 74 16 149/111 98 03/19/17 10:24 16 03/19/17 10:01 98.7 F 99 16 104/53 98 03/19/17 08:39 97.1 F L 112 H 18 104/53 98 03/19/17 08:23 104 H 18 100/59 98 03/19/17 07:18 109 H 03/19/17 07:16 106 H 16 101/53 03/19/17 07:08 117 H 03/19/17 06:26 98.4 F 114 H 22 130/54 98 03/19/17 05:29 101.1 F H 126 H 22 142/84 100 03/19/17 03:20 120 H 20 123/56 98 03/19/17 02:06 98.8 F 130 H 20 109/56 100 03/19/17 01:15 126 H 22 118/60 100 03/19/17 00:47 123 H 22 117/49 100 03/18/17 23:42 100.8 F H 138 H 24 116/57 96 03/18/17 23:19 136 H 24 112/52 96 03/18/17 23:05 140 H 22 114/72 96 03/18/17 22:43 118 H 22 130/84 96 03/18/17 22:14 128 H 102/57 03/18/17 21:54 100.7 F H 138 H 24 98/50 94 L 03/18/17 20:46 101.3 F H 140 H 24 127/58 92 L Intake and Output 03/18/17 03/19/17 03/19/17 22:59 06:59 14:59 Intake Total 188.917 Balance 188.917 Intake: Intake, IV Titration 188.917 Amount Diltiazem 125 mg In 53.917 Sodium Chloride 0.9% 100 ml @ 5 MG/HR 5 mls/hr IV .Q24H ONE Rx#:[id number] Heparin Sodium,Porcine/ 135 D5w Pmx 25,000 unit In Dextrose/Water 1 500ml. bag @ 18 UNITS/KG/HR 32. 65 mls/hr IV .[id number] FORMERLY [facility], [facility]–1983 Rx#:[id number] Other: Weight 90.718 kg GENERAL: Pt awake, mildly confused, appears in mild respiratory distress. HEAD: Atraumatic, normocephalic. EYES: Pupils equal, round, and reactive to light, extraocular movements intact, sclera anicteric, conjunctiva are normal. ENT: Dry mucous membranes. NECK: Supple without lymphadenopathy or JVD. LUNGS: Breath sounds diminished to right upper lobe. HEART: Heart S1, S2, no S3 or S4. Regular irregular. No murmurs, rubs or gallops. ABDOMEN: Soft, nontender, nondistended, normoactive bowel sounds. No guarding, no rebound. No masses or organomegaly appreciated. EXTREMITIES: 1+ peripheral pulses. Trace peripheral edema. No calf tenderness. NEUROLOGICAL: Pt oriented x 2. No focal deficits noted. Decreased sensation to bilateral lower extremities. PSYCH: Anxious. SKIN: Warm, dry, intact. Normal turgor. No rashes or lesions. Results CBC & Chem 7: 03/19/17 03:12 03/19/17 03:12 Labs: Abnormal Lab Results - Last 24 Hours (Table) 03/18/17 03/18/17 03/18/17 Range/Units 21:10 21:10 21:10 WBC 0.2 L* (3.8-10.6) k/uL RBC 2.44 L (4.30-5.90) m/uL Hgb 8.4 L (13.0-17.5) gm/dL Hct 24.5 L (39.0-53.0) % MCV 100.5 H D (80.0-100.0) fL Plt Count 67 L D (150-450) k/uL Neutrophils # 0.1 L (1.3-7.7) k/uL Lymphocytes # 0.1 L (1.0-4.8) k/uL APTT 79.8 H (22.0-30.0) sec Chloride 108 H (98-107) mmol/L Carbon Dioxide 21 L (22-30) mmol/L BUN 41 H (9-20) mg/dL Creatinine 1.41 H (0.66-1.25) mg/dL Glucose 144 H (74-99) mg/dL Calcium (8.4-10.2) mg/dL Alkaline Phosphatase 150 H (38-126) U/L Total Protein (6.3-8.2) g/dL Albumin (3.5-5.0) g/dL Urine Protein (Negative) 03/18/17 03/19/17 03/19/17 Range/Units 21:50 03:12 03:12 WBC 0.2 L* (3.8-10.6) k/uL RBC 2.07 L (4.30-5.90) m/uL Hgb 7.1 L (13.0-17.5) gm/dL Hct 22.0 L (39.0-53.0) % MCV 106.5 H D (80.0-100.0) fL Plt Count 48 L* (150-450) k/uL Neutrophils # (1.3-7.7) k/uL Lymphocytes # (1.0-4.8) k/uL APTT (22.0-30.0) sec Chloride 114 H (98-107) mmol/L Carbon Dioxide 17 L (22-30) mmol/L BUN 34 H (9-20) mg/dL Creatinine (0.66-1.25) mg/dL Glucose 134 H (74-99) mg/dL Calcium 8.0 L (8.4-10.2) mg/dL Alkaline Phosphatase 147 H (38-126) U/L Total Protein 5.9 L (6.3-8.2) g/dL Albumin 3.0 L (3.5-5.0) g/dL Urine Protein Trace H (Negative) 03/19/17 03/19/17 Range/Units 05:48 12:30 WBC (3.8-10.6) k/uL RBC (4.30-5.90) m/uL Hgb (13.0-17.5) gm/dL Hct (39.0-53.0) % MCV (80.0-100.0) fL Plt Count (150-450) k/uL Neutrophils # (1.3-7.7) k/uL Lymphocytes # (1.0-4.8) k/uL APTT 44.6 H 91.9 H (22.0-30.0) sec Chloride (98-107) mmol/L Carbon Dioxide (22-30) mmol/L BUN (9-20) mg/dL Creatinine (0.66-1.25) mg/dL Glucose (74-99) mg/dL Calcium (8.4-10.2) mg/dL Alkaline Phosphatase (38-126) U/L Total Protein (6.3-8.2) g/dL Albumin (3.5-5.0) g/dL Urine Protein (Negative) Microbiology - Last 24 Hours (Table) 03/18/17 21:50 Urine Culture - Preliminary Urine,Voided Chest x-ray: report reviewed Thrombosis Risk Factor Assmnt - DVT/VTE Prophylaxis DVT/VTE Prophylaxis: Pharmacologic Prophylaxis ordered - Choose All That Apply Any of the Below Risk Factors Present?: Yes Each Factor Represents 1 point: Medical pt on bed rest, Obesity (BMI >25), Serious lung disease incl. pneumonia (< 1month) Other Risk Factors: Yes Each Risk Factor Represents 2 Points: Age 61-74 years, Malignancy Other congenital or acquired thrombophilia - If yes, enter type in comment: No Thrombosis Risk Factor Assessment Total Risk Factor Score: 7 Thrombosis Risk Factor Assessment Level: High Risk Assessment and Plan Plan: Impression: 1. Neutropenic sepsis suspect secondary to recent chemotherapy and radiation for small cell lung carcinoma to right upper lobe. 2. Pancytopenia suspect secondary to anti-neoplastic chemotherapy. 3. Atrial flutter with rapid ventricular response, present on admission. 4. Acute renal failure, present on admission, suspect secondary to hypovolemia and hypoperfusion, secondary to dehydration. 5. Elevated blood sugars on admission. 6. Elevated alkaline phosphatase, present on admission. 7. Dysphagia, present on admission, suspect secondary to recent chemotherapy and radiation. 8. Chronic renal failure, stage III. 9. Paroxysmal atrial fibrillation maintained on enalapril for the outpatient setting. 10. Hyperlipidemia. 11. Hypertension. 12. History of ischemic cardiomyopathy status post AICD placement. 13. Coronary artery disease status post coronary artery bypass grafting followed by stenting. 14. History of prostate cancer status post prostatectomy. 15. History of GERD. 16. Severe peripheral vascular disease status post stenting to right lower extremity. 17. Severe peripheral neuropathy. 18. Osteoarthritis. 19. History of anxiety and depression, stable. 20. History of nicotine dependence. Plan: Continue to monitor patient. Continue IV antibiotics for empiric coverage. Continue current medications. Continue supportive treatment and pain management. Continue to follow blood and urine cultures. Await pulmonary, cardiology, and oncology recommendations. Home medications have been reviewed and resumed. Continue GI and DVT prophylaxis. Repeat CBC, CMP, magnesium and phosphorus in a.m. The above impression and plan have been discussed and directed by Dr. Mulligan. Carmel LACEY acting as scribe for Isaak.
[2017-03-19] MEDS ORDERED: FLUCONAZOLE IN NACL,ISO-OSM 400 MG in SALINE 1 200ML.BAG IVPB SCH (17:00)
[2017-03-19] MEDS: LORazepam 2 MG/ML SYRINGE IV PRN (17:13)
[2017-03-19 17:21] LABS: CH 33.6; HDW 2.94; Hypochromasia Slight; MCHC 33.2 g/dL (31.0-37.0); MCV 105.4 fL (80.0-100.0); Macrocytosis Moderate; Mean Platelet Volume 8.7; RBC 1.82 m/uL (4.30-5.90); RDW 13.7 % (11.5-15.5); WBC (Perox) 0.17
[2017-03-19 17:22] LABS: WBC 0.1 k/uL (3.8-10.6)
[2017-03-19 17:28] LABS: HCT 19.1 % (39.0-53.0); HGB 6.4 gm/dL (13.0-17.5)
[2017-03-19 17:31] LABS: Add Differential Manual Differential
--- NOTE | 2017-03-19 17:33 | P.CNPUL ---
History of Present Illness Consult date: 03/19/17 Reason for consult: dyspnea History of present illness: 76-year-old male patient who is quite ill and he comes into the hospital because of various medical problems and chronic shortness of breath and difficulty in swallowing and chest congestion and generalized weakness and fatigue. The patient also had limited changes in his mentation. Note that the patient has history of coronary artery disease and he has undergone previous carotid bypass surgery 2014. 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 He has also peripheral vascular disease and has undergone stenting of the left lower extremity. He was recently diagnosed having small cell lung cancer. Diagnosed was established by bronchoscopy as the patient was found to have endobronchial tumor and based on the limited staging of the small cell lung cancer the patient was referred to radiation oncology and hematology oncology. A patient was started on radiation therapy and he was given a total of 10 sessions of radiation therapy and he has another 10 sessions to go. He was also given the first session of systemic chemotherapy with a combination of carboplatinum and [employer]GER-16. Note that the patient was doing well to around a few days ago and he started developing worsening in his mucositis and swallowing. His chest started becoming more congested. He was unable to swallow. He became progressively more weak and dehydrated. The family and himself denied any episodes of aspiration. He denied having any nausea vomiting or diarrhea. He reported burning sensation in his upper chest. At the same time he has noted some purulent nodules arising in his groin and suprapubic area. These are small nodular lesions that are measuring 1-2 cm in size which have some central purulent material draining. No dysuria. No frequency. No urgency. He still producing urine output. In the burst department the patient was found to be also in atrial fibrillation with rapid ventricular response and he was started on IV heparin and IV Cardizem. Rate is still tachycardic in the 120 range. At the same time the patient was found to be neutropenic and pancytopenic. His white cell count was at 0.2. He is single was 8.4. His platelet count at 48, 000. His creatinine was at 1.2. The patient was started on IV fluids. He was given IV fluid boluses and currently is on any normal saline infusion rate of 1 25 mL an hour. The patient is also on a combination of cefepime and vancomycin. No fever at this point. No headache. No neck stiffness. Review of Systems 12 point review of system was done and the positive findings are almost above the history of present illness Past Medical History Past Medical History: Atrial Fibrillation, Cancer, Heart Failure, GERD/Reflux, Hyperlipidemia, Hypertension, Myocardial Infarction ([place]), Prostate Disorder, Renal Disease, Vascular Disorder Additional Past Medical History / Comment(s): Small cell lung cancer/limited stage currently on chemo radiation therapy, recent hospitalization for hemoptysis, coronary artery disease appears bypass surgery, congestion heart failure with ejection fraction of 30-35%, new onset atrial fibrillation, hyperlipidemia, hypertension, BPH, peripheral vascular disease with previous vascular intervention of the lower extremities, prostate cancer with previous surgery, peripheral neuropathy, Last Myocardial Infarction Date:: 05/27/15 History of Any Multi-Drug Resistant Organisms: MRSA Date of last positivie culture/infection: 09/2015 MDRO Source:: RIGHT TESTICLE Past Surgical History: Coronary Bypass/CABG, Heart Catheterization, Joint Replacement, Orthopedic Surgery, Prostate Surgery, Tonsillectomy Additional Past Surgical History / Comment(s): 02/19/17 BRONCHOSCOPY WITH BAL/ BRUSHINGS/BX, 01/23/17 ICD, 05/26/15 4 VESSEL CABG, AORTAGRAM WITH BILATERAL RUNOFFS, PTBA WITH STENT L SFA, L TOTAL KNEE ARTHROPLASTY, L THUMB SX, 1998 PROSTATECTOMY. Past Anesthesia/Blood Transfusion Reactions: No Reported Reaction Past Psychological History: Anxiety, Depression Additional Psychological History / Comment(s): PT IS DEPRESSED OVER HIS MEDICAL CONDITION. PT STAYS WITH HIS ROVERTO DURING DAYS OF CANCER TREATMENT AND GOES HOME IF NO TREATMENT PLANNED. HE HAS HOME CARE. HE USES A WALKER IF GOING ANY DISTANCE. PT DRIVES. Smoking Status: Former smoker Past Alcohol Use History: Occasional Additional Past Alcohol Use History / Comment(s): STARTED SMOKING AT AGE 15 QUIT SMOKING 2014 SMOKED 1 -1 1/2PPD Past Drug Use History: None Reported - Past Family History Father History Unknown: Yes Family Medical History: No Reported History Additional Family Medical History / Comment(s): FATHER YOUNG IN A BOATING ACCIDENT. Mother Family Medical History: No Reported History Additional Family Medical History / Comment(s): young IN A MVA. Medications and Allergies Home Medications Medication Instructions Recorded Confirmed Type Omeprazole [PriLOSEC] 20 mg PO BID 05/26/15 03/18/17 History Atorvastatin [Lipitor] 80 mg PO DAILY 08/15/15 03/18/17 History Ferrous Sulfate [Iron (65 MG 325 mg PO DAILY 12/19/15 03/18/17 History Elemental)] Oxybutynin Chloride [Ditropan] 5 mg PO QID 12/19/15 03/18/17 History Docusate [Colace] 100 mg PO TID 01/01/16 03/18/17 History Pyridoxine [Vitamin B-6] 100 mg PO DAILY 08/26/16 03/18/17 History Lisinopril [Zestril] 2.5 mg PO DAILY 01/23/17 03/18/17 History Metoprolol Tartrate [Lopressor] 50 mg PO TID 02/17/17 03/18/17 History Multivitamins, Thera [Multivitamin 1 tab PO DAILY 02/17/17 03/18/17 History (formulary)] Spironolactone [Aldactone] 25 mg PO DAILY@0800 02/17/17 03/18/17 History Cholecalciferol [Vitamin D3] 2,000 unit PO DAILY 03/12/17 03/18/17 History Fluconazole [Diflucan] 100 mg PO DAILY 03/12/17 03/18/17 History Fluticasone/Vilanterol [Breo 1 puff INHALATION RT-DAILY 03/12/17 03/18/17 History Ellipta 200-25 Mcg INH] Ipratropium/Albuterol Sulfate 1 puff INHALATION RT-QID 03/12/17 03/18/17 History [Combivent Respimat Inhaler] Ondansetron [Zofran] 4 mg PO Q12HR PRN 03/12/17 03/18/17 History Polyethylene Glycol 3350 [Miralax] 17 gm PO DAILY 03/12/17 03/18/17 History Vitamin E 400 unit PO DAILY 03/12/17 03/18/17 History Apixaban [Eliquis] 2.5 mg PO BID 03/18/17 03/18/17 History Gabapentin 600 mg PO QID 03/18/17 03/18/17 History Allergies Allergy/AdvReac Type Severity Reaction Status Date / Time No Known Allergies Allergy Verified 03/18/17 22:34 Physical Exam Vitals: Vital Signs Temp Pulse Resp BP Pulse Ox 03/19/17 16:37 125 H 03/19/17 16:26 120 H 03/19/17 16:20 121 H 20 95/53 98 03/19/17 15:33 97.7 F 111 H 16 111/58 98 03/19/17 14:52 111 H 120/56 03/19/17 14:20 131 H 26 H 151/66 99 03/19/17 14:00 109 H 22 90/53 100 03/19/17 13:07 98.6 F 105 H 18 84/53 100 03/19/17 12:23 97.4 F L 109 H 18 89/52 100 03/19/17 12:05 99.0 F 85 18 95/55 100 03/19/17 11:41 97.1 F L 93 18 95/55 100 03/19/17 11:27 87 03/19/17 11:15 89 17 100 03/19/17 10:57 98.1 F 74 16 149/111 98 03/19/17 10:24 16 03/19/17 10:01 98.7 F 99 16 104/53 98 03/19/17 08:39 97.1 F L 112 H 18 104/53 98 03/19/17 08:23 104 H 18 100/59 98 03/19/17 07:18 109 H 03/19/17 07:16 106 H 16 101/53 03/19/17 07:08 117 H 03/19/17 06:26 98.4 F 114 H 22 130/54 98 03/19/17 05:29 101.1 F H 126 H 22 142/84 100 03/19/17 03:20 120 H 20 123/56 98 03/19/17 02:06 98.8 F 130 H 20 109/56 100 03/19/17 01:15 126 H 22 118/60 100 03/19/17 00:47 123 H 22 117/49 100 03/18/17 23:42 100.8 F H 138 H 24 116/57 96 03/18/17 23:19 136 H 24 112/52 96 03/18/17 23:05 140 H 22 114/72 96 03/18/17 22:43 118 H 22 130/84 96 03/18/17 22:14 128 H 102/57 03/18/17 21:54 100.7 F H 138 H 24 98/50 94 L 03/18/17 20:46 101.3 F H 140 H 24 127/58 92 L Intake and Output 03/19/17 03/19/17 03/19/17 06:59 14:59 22:59 Intake Total 188.917 258.544 Balance 188.917 258.544 Intake: Intake, IV Titration 188.917 258.544 Amount Diltiazem 125 mg In 53.917 71.083 Sodium Chloride 0.9% 100 ml @ 5 MG/HR 5 mls/hr IV .Q24H ONE Rx#:[id number] Heparin Sodium,Porcine/ 135 187.461 D5w Pmx 25,000 unit In Dextrose/Water 1 500ml. bag @ 18 UNITS/KG/HR 32. 65 mls/hr IV .[id number] [facility] Rx#:[id number] The patient is an ill-looking 76-year-old male patient who is an some degree of respiratory distress and discomfort and pain in his buttocks area.Head exam was generally normal. There was no scleral icterus or corneal arcus. Mucous membranes were moist. Mucous membranes are dry. There is no oropharyngeal thrush seen. No open ulceration in the mucous membranes. Lung sounds are diminished and there is some scattered rhonchi and crackles heard throughout the lung his bilaterally. Heart sounds are irregular, possible sinus stool, no cervical murmurs appreciated.Abdominal exam revealed normal bowel sounds. The abdomen was soft, non-tender, and without masses, organomegaly, or appreciable enlargement of the abdominal aorta. This atrophic area shows no other pustular lesions several of them the largest measuring 2 cm in size with central purulent material. Extremities show no edema no cyanosis or clubbing at the pulses are diminished. Neurologically quite lethargic yet awake and moving all 4 extremities without any limitation. Results - Laboratory Findings CBC and BMP: 03/19/17 03:12 03/19/17 03:12 PT/INR, D-dimer PT 11.9 sec (9.0-12.0) 03/18/17 21:10 INR 1.2 (<1.1) 03/18/17 21:10 Abnormal lab findings: Abnormal Labs 03/18/17 03/18/17 03/18/17 21:10 21:10 21:10 WBC 0.2 L* RBC 2.44 L Hgb 8.4 L Hct 24.5 L MCV 100.5 H D Plt Count 67 L D Neutrophils # 0.1 L Lymphocytes # 0.1 L APTT 79.8 H Chloride 108 H Carbon Dioxide 21 L BUN 41 H Creatinine 1.41 H Glucose 144 H Calcium Alkaline Phosphatase 150 H Total Protein Albumin Urine Protein 03/18/17 03/19/17 03/19/17 21:50 03:12 03:12 WBC 0.2 L* RBC 2.07 L Hgb 7.1 L Hct 22.0 L MCV 106.5 H D Plt Count 48 L* Neutrophils # Lymphocytes # APTT Chloride 114 H Carbon Dioxide 17 L BUN 34 H Creatinine Glucose 134 H Calcium 8.0 L Alkaline Phosphatase 147 H Total Protein 5.9 L Albumin 3.0 L Urine Protein Trace H 03/19/17 03/19/17 05:48 12:30 WBC RBC Hgb Hct MCV Plt Count Neutrophils # Lymphocytes # APTT 44.6 H 91.9 H Chloride Carbon Dioxide BUN Creatinine Glucose Calcium Alkaline Phosphatase Total Protein Albumin Urine Protein - Diagnostic Findings Chest x-ray: image reviewed Assessment and Plan Plan: Assessment 1 neutropenic sepsis. The patient is afebrile however he has very source of infection at these to be considered including the lungs, esophagitis and no other pustular lesions in the suprapubic and inguinal area which could be potentially staphylococcal or fungal. He is in acute atrial fibrillation with rapid ventricular response. No hypotension at this point. He is afebrile. 2 limited stage small cell lung cancer status post chemoradiation therapy. The patient has received one session of systemic chemotherapy with carboplatinum and [employer]GER-16 and 10 sessions of radiation therapy 3 esophagitis/mucositis secondary to radiation therapy with secondary difficulty in swallowing. Rule out candidal esophagitis 4 pancytopenia secondary to chemotherapy 5 new-onset atrial fibrillation with rapid ventricular response, currently on a Cardizem drip and IV heparin 6 CHF with an ejection fraction of 35% 7 coronary artery disease with multivessel involvement and the patient is status post carotid bypass surgery 8 history of AICD placement 9 dysphagia 10 chronic stage III kidney failure 11 peripheral vascular disease with previous vascular intervention of the left lower extremity 12 prostate cancer status post prostatectomy 13 severe peripheral neuropathy 14 depression/anxiety 15 coronary artery bypass surgery, history of 16 dehydration secondary to above with a component of non-anion gap metabolic acidosis Plan I will continue the fluid resuscitation with normal saline at 125 mL an hour. Cover this patient with broad-spectrum antibiotics. The patient will be started on a combination of cefepime and vancomycin and the patient will be also started on Diflucan 400 mg daily 24 hours. We'll consult infectious disease. We'll monitor the white cell count. Will give this patient Zarxio for neutropenia. Repeat CBC with special attention toward his hemoglobin and the platelet count. I would suggest stopping the IV heparin if his patent count drop less than 50. Meanwhile, we'll continue the IV Protonix. We'll send pratt cultures, repeat chest x-ray with the next 24 hours, repeat labs on a daily basis, culture the wound in the groin and sent for Gram stain and culture , more the patient to the intensive care unit, we'll continue to follow. Condition is critical. Had a lengthy discussion with the patient's family.
[2017-03-19] MEDS: MICAFUNGIN 100 MG in SODIUM CHLORIDE 0.9% 100 ML IVPB SCH (18:05)
[2017-03-19 19:56] LABS: Glucose,Whole Blood 134 mg/dL (75-99)
--- NOTE | 2017-03-19 20:11 | P.PN ---
Progress Note - Text Patient interviewed and examined Atrial flutter with RVR Past history of atrial flutter/atrial fibrillation Suggest TSH level Increase metoprolol to 75 mg 3 times a day Full consult Note to follow
[2017-03-19] MEDS: METOPROLOL TARTRATE 25 MG TAB PO SCH (21:46)
[2017-03-19] MEDS ORDERED: DILTIAZEM 125 MG in SODIUM CHLORIDE 0.9% 100 ML IV SCH (22:45)
--- NOTE | 2017-03-20 00:18 | P.CONS ---
History of Present Illness - Reason for Consult Consult date: 03/19/17 - Chief Complaint Progressive weakness and shortness of breath - History of Present Illness 76-year-old male with a known history of small cell lung carcinoma who is been undergoing chemoradiation. Presents emergency center with increasing shortness of breath increasing weakness, increasing fatigue and increasing difficulty with swallowing. He was evaluated by bronchoscopy and endobronchial tumor was noted. She related it was a limited stage small cell lung carcinoma. In counseling and started radiation therapy with concomitant carboplatinum and HOSIERY OPERATOR-16. 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 Decreasing oral intake and increasing weakness. He now presents with evidence of fever, neutropenia and significant dehydration. He is being transferred from the emergency center to the intensive care unit given his atrial fibrillation and hypotension. He has a long-standing history of coronary artery disease atrial fibrillation as well as BPH chronic renal disease and peripheral vascular disease. Is related that he does have a low ejection fraction of 30-35%. His atrial fibrillation is chronic but his rate was quite elevated earlier. With resuscitation and diltiazem drip he has improved. Was having severe pain earlier. With Dilaudid and viscous lidocaine he has had some improvement of his status. Review of Systems 76-year-old male who is quite uncomfortable. He is to, having pain with attempts to swallow and has significant malaise HEENT:Denies headache or acute visual change. Denies sinus or mouth discomforts. Denies neck stiffness or pain. As per the HPI his oral pain and difficulty with swallowing. Not having epistaxis or bleeding from the oral cavity Lungs: Chronic shortness of breath no current hemoptysis. Minimal cough at this time. Cardiovascular: Denies significant chest pain, chest wall pain, Or syncope; does have dyspnea on exertion and orthopnea Gastrointestinal:Denies nausea, vomiting, diarrhea, constipation, hematemesis, melena, hematochezia. No no significant change of bowel habit noticed. Musculoskeletal: denies significant myalgias or arthralgias. No new joint swelling. Denies new back pain. Skin: Has developed multiple skin lesions some on his back that are pruritic. Multiple on the upper thighs and lower abdominal wall Neuro: Denies headache or visual change. Patricia significant generalized weakness difficulty with ambulation Psychiatric Situational anxiety related to his cancer Endocrine:Profound fatigue and weight loss of been occurring Past Medical History Past Medical History: Atrial Fibrillation, Cancer, Heart Failure, GERD/Reflux, Hyperlipidemia, Hypertension, Myocardial Infarction ([place]), Prostate Disorder, Renal Disease, Vascular Disorder Additional Past Medical History / Comment(s): Small cell lung cancer/limited stage currently on chemo radiation therapy, recent hospitalization for hemoptysis, coronary artery disease appears bypass surgery, congestion heart failure with ejection fraction of 30-35%, new onset atrial fibrillation, hyperlipidemia, hypertension, BPH, peripheral vascular disease with previous vascular intervention of the lower extremities, prostate cancer with previous surgery, peripheral neuropathy, Last Myocardial Infarction Date:: 05/27/15 History of Any Multi-Drug Resistant Organisms: MRSA Year Discovered:: 09/2015 MDRO Source:: RIGHT TESTICLE Past Surgical History: Coronary Bypass/CABG, Heart Catheterization, Joint Replacement, Orthopedic Surgery, Prostate Surgery, Tonsillectomy Additional Past Surgical History / Comment(s): 02/19/17 BRONCHOSCOPY WITH BAL/ BRUSHINGS/BX, 01/23/17 ICD, 05/26/15 4 VESSEL CABG, AORTAGRAM WITH BILATERAL RUNOFFS, PTBA WITH STENT L SFA, L TOTAL KNEE ARTHROPLASTY, L THUMB SX, 1998 PROSTATECTOMY. Past Anesthesia/Blood Transfusion Reactions: No Reported Reaction Past Psychological History: Anxiety, Depression Additional Psychological History / Comment(s): PT IS DEPRESSED OVER HIS MEDICAL CONDITION. PT STAYS WITH HIS ROVERTO DURING DAYS OF CANCER TREATMENT AND GOES HOME IF NO TREATMENT PLANNED. HE HAS HOME CARE. HE USES A WALKER IF GOING ANY DISTANCE. PT DRIVES. 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 No animal exposures Smoking Status: Former smoker Past Alcohol Use History: Occasional Additional Past Alcohol Use History / Comment(s): STARTED SMOKING AT AGE 15 QUIT SMOKING 2014 SMOKED 1 -1 1/2PPD Past Drug Use History: None Reported - Past Family History Father History Unknown: Yes Family Medical History: No Reported History Additional Family Medical History / Comment(s): FATHER YOUNG IN A BOATING ACCIDENT. Mother Family Medical History: No Reported History Additional Family Medical History / Comment(s): young IN A MVA. Medications and Allergies Home Medications and Allergies Comment(s): Current Medications Acetaminophen (Tylenol Tab) 650 mg PO Q6HR PRN PRN Reason: Mild Pain or Fever > 100.5 Last Admin: 03/19/17 18:47 Dose: 650 mg Albuterol/Ipratropium (Duoneb 0.5 Mg-3 Mg/3 Ml Soln) 3 ml INHALATION RT-QID [facility] Last Admin: 03/19/17 20:30 Dose: 3 ml Atorvastatin Calcium (Lipitor) 80 mg PO DAILY [facility] Last Admin: 03/19/17 14:03 Dose: Not Given Budesonide/Formoterol Fumarate (Symbicort 160-4.5 Mcg Inhaler) 1 puff INHALATION RT-DAILY [facility] Last Admin: 03/19/17 07:07 Dose: 1 puff Cholecalciferol (Vitamin D3) 2,000 unit PO DAILY [facility] Last Admin: 03/19/17 14:03 Dose: Not Given Al Hydroxide/Mg Hydroxide 30 ml/ Diphenhydramine HCl 75 mg/Lidocaine HCl 30 ml 0 ml PO TID [facility] Last Admin: 03/19/17 21:45 Dose: 30 ml Docusate Sodium (Colace) 100 mg PO TID [facility] Last Admin: 03/19/17 21:50 Dose: Not Given Ferrous Sulfate (Feosol) 325 mg PO DAILY [facility] Last Admin: 03/19/17 14:02 Dose: Not Given Filgrastim (Zarxio) 480 mcg SQ Q24H [facility] Last Admin: 03/19/17 20:26 Dose: Not Given Gabapentin (Neurontin) 600 mg PO QID [facility] Last Admin: 03/19/17 21:50 Dose: Not Given Hydromorphone HCl (Dilaudid) 1 mg IVP Q2H PRN PRN Reason: PAIN over 3 Last Admin: 03/19/17 22:56 Dose: 1 mg Sodium Chloride (Saline 0.9%) 1,000 mls @ 125 mls/hr IV .Q8H [facility] Last Admin: 03/19/17 23:47 Dose: 125 mls/hr Cefepime HCl 2 gm/ Sodium (Chloride) 50 mls @ 100 mls/hr IVPB Q8H [facility] Last Admin: 03/19/17 23:45 Dose: 100 mls/hr Vancomycin HCl 1,500 mg/ (Sodium Chloride) 250 mls @ 125 mls/hr IVPB Q16H [facility] Last Admin: 03/19/17 09:45 Dose: 125 mls/hr Micafungin Sodium 100 mg/ (Sodium Chloride) 100 mls @ 100 mls/hr IVPB DAILY@ 1800 [facility] Last Admin: 03/19/17 18:05 Dose: 100 mls/hr Diltiazem HCl 125 mg/ Sodium (Chloride) 125 mls @ 0 mls/hr IV .Q0M [facility]; Titrate PRN Reason: Protocol Last Admin: 03/19/17 23:41 Dose: 5 mg/h, 5 mls/hr Lisinopril (Zestril) 2.5 mg PO DAILY [facility] Last Admin: 03/19/17 14:01 Dose: Not Given Lorazepam (Ativan) 1 mg IV Q8H PRN PRN Reason: Agitation Last Admin: 03/19/17 17:13 Dose: 1 mg Metoprolol Tartrate (Lopressor) 75 mg PO TID [facility] Last Admin: 03/19/17 21:46 Dose: 75 mg Multivitamins (Theragran) 1 each PO DAILY [facility] Last Admin: 03/19/17 14:06 Dose: Not Given Naloxone HCl (Narcan) 0.2 mg IV Q2M PRN PRN Reason: Opioid Reversal Oxybutynin Chloride (Ditropan) 5 mg PO QID [facility] Last Admin: 03/19/17 21:50 Dose: Not Given Pantoprazole Sodium (Protonix) 40 mg PO AC-BID [facility] Last Admin: 03/19/17 20:26 Dose: Not Given Pyridoxine HCl (Vitamin B-6) 100 mg PO DAILY [facility] Last Admin: 03/19/17 14:05 Dose: Not Given Spironolactone (Aldactone) 25 mg PO DAILY@0800 [facility] Last Admin: 03/19/17 14:03 Dose: Not Given Vitamin E (Vitamin E) 400 unit PO DAILY [facility] Last Admin: 03/19/17 14:04 Dose: Not Given Home Medications Medication Instructions Recorded Confirmed Type Omeprazole [PriLOSEC] 20 mg PO BID 05/26/15 03/18/17 History Atorvastatin [Lipitor] 80 mg PO DAILY 08/15/15 03/18/17 History Ferrous Sulfate [Iron (65 MG 325 mg PO DAILY 12/19/15 03/18/17 History Elemental)] Oxybutynin Chloride [Ditropan] 5 mg PO QID 12/19/15 03/18/17 History Docusate [Colace] 100 mg PO TID 01/01/16 03/18/17 History Pyridoxine [Vitamin B-6] 100 mg PO DAILY 08/26/16 03/18/17 History Lisinopril [Zestril] 2.5 mg PO DAILY 01/23/17 03/18/17 History Metoprolol Tartrate [Lopressor] 50 mg PO TID 02/17/17 03/18/17 History Multivitamins, Thera [Multivitamin 1 tab PO DAILY 02/17/17 03/18/17 History (formulary)] Spironolactone [Aldactone] 25 mg PO DAILY@0800 02/17/17 03/18/17 History Cholecalciferol [Vitamin D3] 2,000 unit PO DAILY 03/12/17 03/18/17 History Fluconazole [Diflucan] 100 mg PO DAILY 03/12/17 03/18/17 History Fluticasone/Vilanterol [Breo 1 puff INHALATION RT-DAILY 03/12/17 03/18/17 History Ellipta 200-25 Mcg INH] Ipratropium/Albuterol Sulfate 1 puff INHALATION RT-QID 03/12/17 03/18/17 History [Combivent Respimat Inhaler] Ondansetron [Zofran] 4 mg PO Q12HR PRN 03/12/17 03/18/17 History Polyethylene Glycol 3350 [Miralax] 17 gm PO DAILY 03/12/17 03/18/17 History Vitamin E 400 unit PO DAILY 03/12/17 03/18/17 History Apixaban [Eliquis] 2.5 mg PO BID 03/18/17 03/18/17 History Gabapentin 600 mg PO QID 03/18/17 03/18/17 History Allergies Allergy/AdvReac Type Severity Reaction Status Date / Time No Known Allergies Allergy Verified 03/18/17 22:34 Physical Exam Vitals: Vital Signs Temp Pulse Pulse Resp BP Pulse Ox 03/19/17 21:54 99.8 F H 133 H 18 132/62 98 03/19/17 20:32 133 H 03/19/17 20:21 133 H 03/19/17 19:51 99.8 F H 125 H 18 122/62 98 03/19/17 19:21 99.3 F 111 H 16 119/57 03/19/17 19:15 125 H 03/19/17 19:11 100.8 F H 120 H 16 107/83 03/19/17 19:10 100.8 F H 123 H 16 107/53 100 03/19/17 18:20 100.4 F H 128 H 18 127/57 98 03/19/17 17:11 97.8 F 127 H 18 106/54 98 03/19/17 16:37 125 H 03/19/17 16:26 120 H 03/19/17 16:20 121 H 20 95/53 98 03/19/17 15:33 97.7 F 111 H 16 111/58 98 03/19/17 14:52 111 H 120/56 03/19/17 14:20 131 H 26 H 151/66 99 03/19/17 14:00 109 H 22 90/53 100 03/19/17 13:07 98.6 F 105 H 18 84/53 100 03/19/17 12:23 97.4 F L 109 H 18 89/52 100 03/19/17 12:05 99.0 F 85 18 95/55 100 03/19/17 11:41 97.1 F L 93 18 95/55 100 03/19/17 11:27 87 03/19/17 11:15 89 17 100 03/19/17 10:57 98.1 F 74 16 149/111 98 03/19/17 10:24 16 03/19/17 10:01 98.7 F 99 16 104/53 98 03/19/17 08:39 97.1 F L 112 H 18 104/53 98 03/19/17 08:23 104 H 18 100/59 98 03/19/17 07:18 109 H 03/19/17 07:16 106 H 16 101/53 03/19/17 07:08 117 H 03/19/17 06:26 98.4 F 114 H 22 130/54 98 03/19/17 05:29 101.1 F H 126 H 22 142/84 100 03/19/17 03:20 120 H 20 123/56 98 03/19/17 02:06 98.8 F 130 H 20 109/56 100 03/19/17 01:15 126 H 22 118/60 100 03/19/17 00:47 123 H 22 117/49 100 Intake and Output 03/19/17 03/19/17 03/20/17 14:59 22:59 06:59 Intake Total 258.544 310 46.583 Output Total 400 Balance 258.544 -90 46.583 Intake: Intake, IV Titration 258.544 46.583 Amount Diltiazem 125 mg In 71.083 46.583 Sodium Chloride 0.9% 100 ml @ 5 MG/HR 5 mls/hr IV .Q24H [facility] Rx#:[id number] Heparin Sodium,Porcine/ 187.461 D5w Pmx 25,000 unit In Dextrose/Water 1 500ml. bag @ 18 UNITS/KG/HR 32. 65 mls/hr IV .[id number] [facility] Rx#:[id number] Blood Product 310 Rc Pheresis 2 As3 Unit 310 [id number] Output: Urine 400 76-year-old male who appears to be acutely ill. He has pallor and complaints of significant discomfort in his oral cavity and trying to swallow HEENT: Anicteric conjunctiva are pink and moist nasal mucosa grossly intact without significant lesions, there is evidence of mucositis without acute bleeding Neck: The neck is supple without significant lymphadenopathy or thyromegaly. Lungs: Symmetric air entry is noted. Basilar crackles are noted. Expiratory wheezes are scattered no bronchial sounds Heart: Irregularly irregular rate about 120. Soft S4 no murmur click or rub is noted Abdomen: Positive bowel sounds soft and nontender without palpable masses or organomegaly. There was no guarding or rebound. Extremities: Extremities have some generalized edema.. Neuro: Awake alert oriented to person place and time. Some narcotic effect is noted. But no acute gross focal sensory motor deficits. Skin on the interior aspect of both thighs, as well as anterior aspect of both thighs and lower abdominal wall or multiple small skin lesions that have developed since he's been on chemotherapy. Some DuoDERM is been applied to cover them for some relief. Some evidence of some mild erythema to the anterior chest wall as well to his back from initiation of the recent radiation therapy. Results CBC & Chem 7: 03/19/17 16:34 03/19/17 03:12 Labs: Abnormal Lab Results - Last 24 Hours (Table) 03/18/17 03/19/17 03/19/17 Range/Units 17:47 03:12 03:12 WBC 0.2 L* (3.8-10.6) k/uL RBC 2.07 L (4.30-5.90) m/uL Hgb 7.1 L (13.0-17.5) gm/dL Hct 22.0 L (39.0-53.0) % MCV 106.5 H D (80.0-100.0) fL Plt Count 48 L* (150-450) k/uL APTT (22.0-30.0) sec Chloride 114 H (98-107) mmol/L Carbon Dioxide 17 L (22-30) mmol/L BUN 34 H (9-20) mg/dL Glucose 134 H (74-99) mg/dL POC Glucose (mg/dL) (75-99) mg/dL Calcium 8.0 L (8.4-10.2) mg/dL Alkaline Phosphatase 147 H (38-126) U/L Total Protein 5.9 L (6.3-8.2) g/dL Albumin 3.0 L (3.5-5.0) g/dL Crossmatch See Detail 03/19/17 03/19/17 03/19/17 Range/Units 05:48 12:30 16:34 WBC 0.1 L* (3.8-10.6) k/uL RBC 1.82 L (4.30-5.90) m/uL Hgb 6.4 L* (13.0-17.5) gm/dL Hct 19.1 L* (39.0-53.0) % MCV 105.4 H (80.0-100.0) fL Plt Count 33 L* (150-450) k/uL APTT 44.6 H 91.9 H (22.0-30.0) sec Chloride (98-107) mmol/L Carbon Dioxide (22-30) mmol/L BUN (9-20) mg/dL Glucose (74-99) mg/dL POC Glucose (mg/dL) (75-99) mg/dL Calcium (8.4-10.2) mg/dL Alkaline Phosphatase (38-126) U/L Total Protein (6.3-8.2) g/dL Albumin (3.5-5.0) g/dL Crossmatch 03/19/17 Range/Units 19:53 WBC (3.8-10.6) k/uL RBC (4.30-5.90) m/uL Hgb (13.0-17.5) gm/dL Hct (39.0-53.0) % MCV (80.0-100.0) fL Plt Count (150-450) k/uL APTT (22.0-30.0) sec Chloride (98-107) mmol/L Carbon Dioxide (22-30) mmol/L BUN (9-20) mg/dL Glucose (74-99) mg/dL POC Glucose (mg/dL) 134 H (75-99) mg/dL Calcium (8.4-10.2) mg/dL Alkaline Phosphatase (38-126) U/L Total Protein (6.3-8.2) g/dL Albumin (3.5-5.0) g/dL Crossmatch Microbiology - Last 24 Hours (Table) 03/18/17 21:10 Blood Culture - Preliminary Blood No Growth after 24 hours 03/18/17 21:50 Urine Culture - Preliminary Urine,Voided Laboratory Results WBC 0.1 k/uL (3.8-10.6) L* 03/19/17 16:34 RBC 1.82 m/uL (4.30-5.90) L 03/19/17 16:34 Hgb 6.4 gm/dL (13.0-17.5) L* 03/19/17 16:34 Hct 19.1 % (39.0-53.0) L* 03/19/17 16:34 MCV 105.4 fL (80.0-100.0) H 03/19/17 16:34 MCH 35.0 pg (25.0-35.0) 03/19/17 16:34 MCHC 33.2 g/dL (31.0-37.0) 03/19/17 16:34 RDW 13.7 % (11.5-15.5) 03/19/17 16:34 Plt Count 33 k/uL (150-450) L* 03/19/17 16:34 Neutrophils % 27 % 03/18/17 21:10 Lymphocytes % 58 % 03/18/17 21:10 Monocytes % 6 % 03/18/17 21:10 Eosinophils % 3 % 03/18/17 21:10 Basophils % 3 % 03/18/17 21:10 Neutrophils # 0.1 k/uL (1.3-7.7) L 03/18/17 21:10 Lymphocytes # 0.1 k/uL (1.0-4.8) L 03/18/17 21:10 Monocytes # 0.0 k/uL (0-1.0) 03/18/17 21:10 Eosinophils # 0.0 k/uL (0-0.7) 03/18/17 21:10 Basophils # 0.0 k/uL (0-0.2) 03/18/17 21:10 Differential Comment 03/19/17 16:34 Manual Slide Review Performed 03/19/17 03:12 Hypochromasia Slight 03/19/17 16:34 Poikilocytosis (manual Present 03/19/17 03:12 Anisocytosis (manual) Present 03/19/17 03:12 Macrocytosis Moderate 03/19/17 16:34 PT 11.9 sec (9.0-12.0) 03/18/17 21:10 INR 1.2 (<1.1) 03/18/17 21:10 APTT 91.9 sec (22.0-30.0) H 03/19/17 12:30 Sodium 140 mmol/L (137-145) 03/19/17 03:12 Potassium 4.7 mmol/L (3.5-5.1) 03/19/17 03:12 Chloride 114 mmol/L (98-107) H 03/19/17 03:12 Carbon Dioxide 17 mmol/L (22-30) L 03/19/17 03:12 Anion Gap 9 mmol/L 03/19/17 03:12 BUN 34 mg/dL (9-20) H 03/19/17 03:12 Creatinine 1.20 mg/dL (0.66-1.25) 03/19/17 03:12 Est GFR (MDRD) Af Amer >60 (>60 ml/min/1.73 sqM) 03/19/17 03:12 Est GFR (MDRD) Non-Af 59 (>60 ml/min/1.73 sqM) 03/19/17 03:12 Glucose 134 mg/dL (74-99) H 03/19/17 03:12 POC Glucose (mg/dL) 134 mg/dL (75-99) H 03/19/17 19:53 POC Glu Texturing Machine Fixer ID Shanice Garcia 03/19/17 19:53 Plasma Lactic Acid Arnaldo 1.3 mmol/L (0.7-2.0) 03/18/17 21:10 Calcium 8.0 mg/dL (8.4-10.2) L 03/19/17 03:12 Total Bilirubin 1.0 mg/dL (0.2-1.3) 03/19/17 03:12 AST 40 U/L (17-59) 03/19/17 03:12 ALT 50 U/L (21-72) 03/19/17 03:12 Alkaline Phosphatase 147 U/L (38-126) H 03/19/17 03:12 Troponin I 0.013 ng/mL (0.000-0.034) 03/19/17 03:12 Total Protein 5.9 g/dL (6.3-8.2) L 03/19/17 03:12 Albumin 3.0 g/dL (3.5-5.0) L 03/19/17 03:12 Urine Color Yellow 03/18/17 21:50 Urine Appearance Clear (Clear) 03/18/17 21:50 Urine pH 6.0 (5.0-8.0) 03/18/17 21:50 Ur Specific South Range 1.029 (1.001-1.035) 03/18/17 21:50 Urine Protein Trace (Negative) H 03/18/17 21:50 Urine Glucose (UA) Negative (Negative) 03/18/17 21:50 Urine Ketones Negative (Negative) 03/18/17 21:50 Urine Blood Negative (Negative) 03/18/17 21:50 Urine Nitrite Negative (Negative) 03/18/17 21:50 Urine Bilirubin Negative (Negative) 03/18/17 21:50 Urine Urobilinogen <2.0 mg/dL (<2.0) 03/18/17 21:50 Ur Leukocyte Esterase Negative (Negative) 03/18/17 21:50 Blood Type O Negative 03/18/17 17:47 Blood Type Recheck No 03/18/17 17:47 Antibody Screen NEGATIVE 03/18/17 17:47 Crossmatch See Detail 03/18/17 17:47 Spec Expiration Date 03/21/2017230903/18/17 17:47 Microbiology 03/18/17 21:10 Blood Blood Culture - Preliminary No Growth after 24 hours 03/18/17 21:50 Urine,Voided Urine Culture - Preliminary Chest x-ray: image reviewed (When compared to prior there is the tumor with no new acute infiltrates) Assessment and Plan (1) Febrile neutropenia Narrative/Plan: 76-year-old male presents the emergency center with evidence of feeling quite poorly. Having increasing difficulties with swallowing due to significant pain. Has evidence of some radiation esophagitis as well as mucositis at this time. Has had some response to Dilaudid and cool solution. These will continue. Oncology is following. Radiation oncology also following. Emollient can be applied to the irritation to the skin For the febrile neutropenia antibiotic therapy with cefepime and vancomycin is being utilized because of the extensive mucositis vancomycin is indicated. Cultures are in process Supportive care Fluid resuscitation is occurring Patient has multiple small skin lesions likely related to the current chemotherapy. They are not necrotic and do not appear to be ecthyma gangrenosum at this time, more blisterlike. Given her irritation symptoms and can be applied to these areas and when improved the hydrocolloid can be utilized. Cultures are processing being monitored. Given the significant mucositis in fever the patient is at risk of underlying fungal infection and with this micafungin is utilized. Albumin is low and patient will needsignificant protein supplementation as improvement in eating occurs Status: Acute (2) Small cell lung cancer Status: Acute (3) Atrial flutter with rapid ventricular response Status: Acute (4) Anemia Status: Acute
[2017-03-20 00:26] LABS: CH 33.5; CHCM 32.8; HCT 22.5 % (39.0-53.0); HDW 3.08; HGB 7.5 gm/dL (13.0-17.5); MCH 34.2 pg (25.0-35.0); MCHC 33.3 g/dL (31.0-37.0); MCV 102.5 fL (80.0-100.0); Macrocytosis Slight; Mean Platelet Volume 8.3; RBC 2.19 m/uL (4.30-5.90); WBC (Perox) 0.22
[2017-03-20] MEDS: VANCOMYCIN 1,500 MG in SODIUM CHLORIDE 0.9% 250 ML IVPB SCH ×2 (00:31→17:27)
[2017-03-20 00:32] LABS: WBC 0.2 k/uL (3.8-10.6)
[2017-03-20 01:07] LABS: Add Differential Manual Differential
[2017-03-20 01:09] LABS: Manual Review Performed
[2017-03-20] MEDS: HYDROmorphone 1 MG/ML 1 ML SYRINGE IVP PRN ×7 (02:10→22:54)
[2017-03-20] MEDS: LORazepam 2 MG/ML SYRINGE IV PRN ×3 (02:10→23:45)
[2017-03-20 04:51] LABS: Aty Lym Flag Marked; CH 33.6; CHCM 32.4; HCT 20.7 % (39.0-53.0); MCHC 32.6 g/dL (31.0-37.0); MCV 104.2 fL (80.0-100.0); Macrocytosis Moderate; Mean Platelet Volume 7.6; RBC 1.99 m/uL (4.30-5.90); RDW 15.2 % (11.5-15.5); WBC (Perox) 1.47
[2017-03-20 04:53] LABS: WBC 0.5 k/uL (3.8-10.6)
[2017-03-20 04:55] LABS: INR 1.3 (<1.1); Partial Thromboplastin Time 24.3 sec (22.0-30.0); Prothrombin Time 13.2 sec (9.0-12.0)
[2017-03-20 04:56] LABS: HGB 6.8 gm/dL (13.0-17.5)
[2017-03-20 05:08] LABS: Anion Gap 8 mmol/L; Blood Urea Nitrogen 26 mg/dL (9-20); Carbon Dioxide 17 mmol/L (22-30); Chloride 117 mmol/L (98-107); Glucose 127 mg/dL (74-99); Magnesium 2.2 mg/dL (1.6-2.3); Non-African American GFR(MDRD) >60 (>60 ml/min/1.73 sqM); Potassium 4.6 mmol/L (3.5-5.1); Sodium 142 mmol/L (137-145)
[2017-03-20 05:14] LABS: Add Differential Manual Differential
[2017-03-20 05:15] LABS: Manual Review Performed
[2017-03-20] MEDS: HYDROCORTISONE 1% CREAM 454 GM JAR TOPICAL SCH ×3 (06:43→21:26)
[2017-03-20] MEDS: ZINC OXIDE 20% OINT 28.4 GM TUBE TOPICAL SCH ×4 (06:43→21:25)
[2017-03-20] MEDS: IPRATROPIUM-ALBUTEROL 3 ML NEB INHALATION SCH ×4 (07:39→19:33)
[2017-03-20] MEDS: SYMBICORT 160-4.5 MCG INHALER INHALATION SCH (07:39)
[2017-03-20] MEDS ORDERED: KETOROLAC 30 MG/ML 1 ML VIAL ONE (07:58)
[2017-03-20 07:59] LABS: Glucose,Whole Blood 121 mg/dL (75-99)
[2017-03-20] MEDS: SODIUM CHLORIDE 0.9% 1,000 ML IV SCH ×2 (08:43→08:45)
[2017-03-20] MEDS: SPIRONOLACTONE 25 MG TAB PO SCH (08:44)
[2017-03-20] MEDS: PANTOPRAZOLE 40 MG TABLET PO SCH ×2 (08:44→21:23)
[2017-03-20] MEDS: CHOLECALCIFEROL 1,000 UNIT TAB PO SCH (08:45)
[2017-03-20] MEDS: ATORVASTATIN 80 MG TAB PO SCH (08:45)
[2017-03-20] MEDS: FERROUS SULFATE 325 MG TAB PO SCH (08:46)
[2017-03-20] MEDS: GABAPENTIN 300 MG CAP PO SCH ×4 (08:46→22:31)
[2017-03-20] MEDS: METOPROLOL TARTRATE 25 MG TAB PO SCH ×3 (08:47→22:32)
[2017-03-20] MEDS: OXYBUTYNIN CHLORIDE 5 MG TAB PO SCH ×4 (08:47→22:32)
[2017-03-20] MEDS: MULTIVITAMINS, THERA 1 EACH TAB PO SCH (08:47)
[2017-03-20] MEDS: PYRIDOXINE 50 MG TAB PO SCH (08:48)
[2017-03-20] MEDS: MAG HYDROX/AL HYDROX/SIMETH 30 ML, diphenhydrAMINE ELIXIR 75 MG, LIDOCAINE VISCOUS 30 ML PO SCH ×3 (08:48)
[2017-03-20] MEDS: VITAMIN E (DL,TOCOPHERYL ACET) 400 UNIT CAP PO SCH (08:48)
[2017-03-20] MEDS ORDERED: RX INFO: IV CONTRAST WAS GIVEN 1 EACH MISC MISCELLANE PRN (09:00)
[2017-03-20] MEDS ORDERED: ENOXAPARIN 40 MG/0.4 ML SYRINGE SQ SCH (09:00)
[2017-03-20] MEDS: DOCUSATE ORAL SOLN 100 MG/10 ML CUP PO SCH ×3 (11:19→22:31)
[2017-03-20] MEDS: LISINOPRIL 2.5 MG TAB PO SCH (11:19)
--- NOTE | 2017-03-20 12:08 | CT ---
EXAMINATION TYPE: CT brain wo/w con DATE OF EXAM: 03/20/2017 12:00 PM COMPARISON: CT brain February 20, 2017 HISTORY: Possible METS, prostate cancer. Mental status changes. CT DLP: 2051.60 mGycm Automated exposure control for dose reduction was used. CONTRAST: CT scan of the head is performed without and with IV Contrast, patient injected with 100 mL of Omnipa que 300. FINDINGS: Noncontrast images show no acute intracranial hemorrhage or midline shift. There is ventricular and s ulcal prominence consistent with diffuse cerebral atrophy. There is low-attenuation in the periventri cular white matter. Vascular postcontrast images show no suspicious enhancing intraparenchymal mass. Dominant right vertebral artery is noted. Calcification of distal internal carotid arteries is presen t bilaterally. There is stable small mucous retention cyst or polyp in the posterior right maxillary sinus otherwise paranasal sinuses are clear. The globes are intact bilaterally. IMPRESSION: There is mild diffuse cerebral atrophy and mild to moderate chronic small vessel ischemic change. No suspicious enhancing intraparenchymal mass is identified.
[2017-03-20] MEDS: CEFEPIME 2 GM in SODIUM CHLORIDE 0.9% 50 ML IVPB SCH ×2 (12:11→16:13)
[2017-03-20 12:17] LABS: Glucose,Whole Blood 109 mg/dL (75-99)
[2017-03-20 13:20] LABS: CH 33.4; CHCM 34.5; HCT 25.1 % (39.0-53.0); HGB 8.7 gm/dL (13.0-17.5); MCH 33.7 pg (25.0-35.0); MCHC 34.7 g/dL (31.0-37.0); RBC 2.58 m/uL (4.30-5.90)
[2017-03-20 13:21] LABS: Immature Gran Flag Marked; Mean Platelet Volume 7.3; RDW 15.3 % (11.5-15.5)
[2017-03-20 13:24] LABS: Add Differential Manual Differential; MCV 97.3 fL (80.0-100.0); WBC 0.3 k/uL (3.8-10.6)
--- NOTE | 2017-03-20 13:34 | PN ---
Mr. Reinoso's rate is much better controlled. He is in atrial flutter. I increased his metoprolol to 75 mg 3 times a day. He was on Cardizem and has dropped his pressure so Cardizem is being discontinued. He is also quite confused right now. His breath sounds are reduced bilaterally. Blood pressure is 107/50 mmHg, heart rate is in the 80s and 90s. He is afebrile. IMPRESSION: 1. Atrial flutter with rapid ventricular response, now rate controlled. 2. Multiple other medical problems. From a cardiac standpoint, I would simply control his heart rate with the current dose of metoprolol. Please call as needed.
--- NOTE | 2017-03-20 14:33 | P.PN ---
Subjective Patient is a 76-year-old male, patient of Dr. Mulligan in the outpatient setting, with medical history significant for paroxysmal atrial fibrillation, GERD, hyperlipidemia, hypertension, coronary artery disease status post coronary artery bypass grafting in 2014 followed by stenting to the left SFA in August 2015, myocardial infarction, ischemic cardiomyopathy status post placement of internal cardiac defibrillator, prostate cancer status post prostatectomy in 1998, peripheral vascular disease status post stent placement to left lower extremity, osteoarthritis, severe peripheral neuropathy, and remote nicotine dependence. 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 Per chart and daughter, patient had been experiencing trouble with swallowing and increased shortness of breath over the last couple of days in addition to having generalized weakness, fatigue , and shakiness. Patient originally presented to [facility] where he underwent a CTA of the chest with evidence of cardiomegaly, right upper lung nodule and right hilar invasive mass with thoracic adenopathy; and moderate to severe thickening of the mid esophagus. Patient was transferred to [facility]. In the emergency department, patient was found to have evidence of febrile neutropenia and pancytopenia with evidence of acute renal failure. EKG on admission with evidence of atrial flutter with ventricular rate of 128. Patient was fluid resuscitated with 2 L of normal saline, started on IV antibiotics in the form of vancomycin, Zosyn, and Maxipime for empiric coverage, and started on IV Cardizem for rate control. Consults were requested for Dr. Figueroa for oncology service, Dr. Courtney for pulmonary service, cardiology service, and Dr. Gomez for infectious disease service. 03/20/2017: Patient is evaluated in the intensive care unit. Patient remains desponded and lethargic. Patient has no specific complaints. Daughter at bedside. Daughter states that patient was able to eat some applesauce and drink some water this morning. WBC 0.3. Hemoglobin 8.7 status post 2 units of PRBC for hemoglobin of 6.4. No active bleeding at this time. Platelet count decreased to 23. All anticoagulants have been discontinued. Afebrile. Patient remains in atrial flutter with controlled ventricular rate. Patient currently on IV Cardizem at 5 mg an hour. Blood pressure 128/63. Oxygen saturation 98% on 3 L nasal cannula. Urine output greater than 30 mL an hour. Final urine culture negative. Preliminary blood cultures with no growth after 24 hours. Patient continues on IV antibiotics in the form of cefepime, vancomycin, Zosyn, and micafungin. Patient did undergo a CAT scan of the brain this morning with evidence of mild diffuse cerebral atrophy and mild to moderate chronic small vessel ischemic changes with no suspicious mass noted. Objective - Vital Signs Vital signs: Vital Signs Temp 97.5 F L 03/20/17 12:00 Pulse 92 03/20/17 13:04 Resp 14 03/20/17 13:00 BP 107/50 03/20/17 13:00 Pulse Ox 100 03/20/17 13:00 Intake & Output 03/19/17 03/20/17 03/20/17 18:59 06:59 18:59 Intake Total 258.544 356.583 995 Output Total 400 1225 295 Balance -141.456 -868.417 700 Weight 99.9 kg 99.9 kg Intake: Intake, IV Titration 258.544 46.583 375 Amount Diltiazem 125 mg In 71.083 46.583 Sodium Chloride 0.9% 100 ml @ 5 MG/HR 5 mls/hr IV .Q24H [facility] Rx#:[id number] Heparin Sodium,Porcine/ 187.461 D5w Pmx 25,000 unit In Dextrose/Water 1 500ml. bag @ 18 UNITS/KG/HR 32. 65 mls/hr IV .[id number] [facility] Rx#:[id number] Sodium Chloride 0.9% 1, 375 000 ml @ 75 mls/hr IV . [id number] [facility] Rx#:[id number] Blood Product 310 620 Rc As-1 Unit 0 310 [id number] Rc Pheresis 2 As3 Unit 310 [id number] Output: Urine 400 1225 295 Other: Voiding Method Indwelling Catheter Indwelling Catheter - Exam GENERAL: Pt lethargic, mildly confused, appears in no acute distress. HEAD: Atraumatic, normocephalic. EYES: Pupils equal, round, and reactive to light, extraocular movements intact, sclera anicteric, conjunctiva are normal. ENT: Dry mucous membranes. NECK: Supple without lymphadenopathy or JVD. LUNGS: Breath sounds diminished to throughout lung kohler. HEART: Heart S1, S2, no S3 or S4. Regular irregular. No murmurs, rubs or gallops. ABDOMEN: Soft, nontender, nondistended, normoactive bowel sounds. No guarding, no rebound. No masses or organomegaly appreciated. EXTREMITIES: 1+ peripheral pulses. Trace peripheral edema. No calf tenderness. NEUROLOGICAL: Pt oriented x 2. No focal deficits noted. Decreased sensation to bilateral lower extremities. PSYCH: Calm. SKIN: Warm, dry. Multiple pruritic lesions on back, thighs, lower abdominal wall. - Labs CBC & Chem 7: 03/20/17 13:08 03/20/17 04:15 Labs: Abnormal Lab Results - Last 24 Hours (Table) 03/18/17 03/19/17 03/19/17 Range/Units 17:47 16:34 19:53 WBC 0.1 L* (3.8-10.6) k/uL RBC 1.82 L (4.30-5.90) m/uL Hgb 6.4 L* (13.0-17.5) gm/dL Hct 19.1 L* (39.0-53.0) % MCV 105.4 H (80.0-100.0) fL Plt Count 33 L* (150-450) k/uL PT (9.0-12.0) sec Chloride (98-107) mmol/L Carbon Dioxide (22-30) mmol/L BUN (9-20) mg/dL Glucose (74-99) mg/dL POC Glucose (mg/dL) 134 H (75-99) mg/dL Calcium (8.4-10.2) mg/dL Crossmatch See Detail 03/20/17 03/20/17 03/20/17 Range/Units 00:07 04:15 04:15 WBC 0.2 L* 0.5 L* (3.8-10.6) k/uL RBC 2.19 L 1.99 L (4.30-5.90) m/uL Hgb 7.5 L 6.8 L* (13.0-17.5) gm/dL Hct 22.5 L 20.7 L (39.0-53.0) % MCV 102.5 H 104.2 H (80.0-100.0) fL Plt Count 26 L* 31 L* (150-450) k/uL PT (9.0-12.0) sec Chloride 117 H (98-107) mmol/L Carbon Dioxide 17 L (22-30) mmol/L BUN 26 H (9-20) mg/dL Glucose 127 H (74-99) mg/dL POC Glucose (mg/dL) (75-99) mg/dL Calcium 8.0 L (8.4-10.2) mg/dL Crossmatch 03/20/17 03/20/17 03/20/17 Range/Units 04:26 07:57 12:15 WBC (3.8-10.6) k/uL RBC (4.30-5.90) m/uL Hgb (13.0-17.5) gm/dL Hct (39.0-53.0) % MCV (80.0-100.0) fL Plt Count (150-450) k/uL PT 13.2 H (9.0-12.0) sec Chloride (98-107) mmol/L Carbon Dioxide (22-30) mmol/L BUN (9-20) mg/dL Glucose (74-99) mg/dL POC Glucose (mg/dL) 121 H 109 H (75-99) mg/dL Calcium (8.4-10.2) mg/dL Crossmatch 03/20/17 Range/Units 13:08 WBC 0.3 L* (3.8-10.6) k/uL RBC 2.58 L (4.30-5.90) m/uL Hgb 8.7 L D (13.0-17.5) gm/dL Hct 25.1 L (39.0-53.0) % MCV (80.0-100.0) fL Plt Count 23 L* (150-450) k/uL PT (9.0-12.0) sec Chloride (98-107) mmol/L Carbon Dioxide (22-30) mmol/L BUN (9-20) mg/dL Glucose (74-99) mg/dL POC Glucose (mg/dL) (75-99) mg/dL Calcium (8.4-10.2) mg/dL Crossmatch Microbiology - Last 24 Hours (Table) 03/18/17 21:50 Urine Culture - Final Urine,Voided 03/18/17 21:10 Blood Culture - Preliminary Blood No Growth after 24 hours Assessment and Plan Plan: Impression: 1. Neutropenic sepsis suspect secondary to recent chemotherapy and radiation for limited stage small cell lung carcinoma post chemoradiation therapy. Patient has received one session of systemic chemotherapy with carboplatinum and [employer] IN[employer] WRITER-16 and 10 sessions of radiation therapy. 2. Pancytopenia suspect secondary to anti-neoplastic chemotherapy. 3. Atrial flutter with rapid ventricular response, present on admission, currently rate controlled. 4. Acute renal failure, present on admission, suspect secondary to hypovolemia and hypoperfusion, secondary to dehydration, resolved. 5. Elevated blood sugars on admission. 6. Elevated alkaline phosphatase, present on admission. 7. Dysphagia, present on admission, suspect secondary to esophagitis and mucositis secondary to recent chemotherapy and radiation with possibility of Traci esophagitis.. 8. Chronic renal failure, stage III. 9. Paroxysmal atrial fibrillation maintained on Eliquis in the outpatient setting. 10. Hyperlipidemia. 11. Hypertension. 12. History of ischemic cardiomyopathy status post AICD placement. Ejection fraction 35%. 13. Coronary artery disease status post coronary artery bypass grafting followed by stenting. 14. History of prostate cancer status post prostatectomy. 15. History of GERD. 16. Severe peripheral vascular disease status post stenting to right lower extremity. 17. Severe peripheral neuropathy. 18. Osteoarthritis. 19. History of anxiety and depression, stable. 20. History of nicotine dependence. Plan: Continue to monitor patient. Continue IV antibiotics for empiric coverage. Continue current medications. Continue supportive treatment and pain management. Continue to follow blood and urine cultures. Continue to follow with consultants. Continue GI and DVT prophylaxis. Repeat CBC, CMP, magnesium and phosphorus in a.m. The above impression and plan have been discussed and directed by Dr. Mulligan. Carmel LACEY acting as scribe for Isaak.
--- NOTE | 2017-03-20 15:35 | P.PN ---
Subjective I AM ALSO COVERING FOR DR. JONES FOR THIS EVALUATION. 76-year-old male patient who is quite ill and he comes into the hospital because of various medical problems and chronic shortness of breath and difficulty in swallowing and chest congestion and generalized weakness and fatigue. The patient also had limited changes in his mentation. Note that the patient has history of coronary artery disease and he has undergone previous carotid bypass surgery 2014. 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 He has also peripheral vascular disease and has undergone stenting of the left lower extremity. He was recently diagnosed having small cell lung cancer. Diagnosed was established by bronchoscopy as the patient was found to have endobronchial tumor and based on the limited staging of the small cell lung cancer the patient was referred to radiation oncology and hematology oncology. A patient was started on radiation therapy and he was given a total of 10 sessions of radiation therapy and he has another 10 sessions to go. He was also given the first session of systemic chemotherapy with a combination of carboplatinum and FIELD SERVICE ENGINEER-16. Note that the patient was doing well to around a few days ago and he started developing worsening in his mucositis and swallowing. His chest started becoming more congested. He was unable to swallow. He became progressively more weak and dehydrated. The family and himself denied any episodes of aspiration. He denied having any nausea vomiting or diarrhea. He reported burning sensation in his upper chest. At the same time he has noted some purulent nodules arising in his groin and suprapubic area. These are small nodular lesions that are measuring 1-2 cm in size which have some central purulent material draining. No dysuria. No frequency. No urgency. He still producing urine output. In the burst department the patient was found to be also in atrial fibrillation with rapid ventricular response and he was started on IV heparin and IV Cardizem. Rate is still tachycardic in the 120 range. At the same time the patient was found to be neutropenic and pancytopenic. His white cell count was at 0.2. He is single was 8.4. His platelet count at 48, 000. His creatinine was at 1.2. The patient was started on IV fluids. He was given IV fluid boluses and currently is on any normal saline infusion rate of 1 25 mL an hour. The patient is also on a combination of cefepime and vancomycin. No fever at this point. No headache. No neck stiffness. On 03/20/2017 I'm seeing this patient in follow-up in the intensive care unit. He is doing slightly better. Still unable to swallow and still having burning sensation in his throat and upper chest related to severe mucositis. He is afebrile. He is hemodynamically stable. He is on broad-spectrum antibiotics. All of the cultures of been negative. Still pancytopenic and the white cell count today is at 0.3 with a hemoglobin of 8.7 and platelet count of 23,000. He is still in atrial fibrillation with rate being controlled. He is on no anti -coagulation based on his underlying thrombocytopenia. He has a component of non-anion gap metabolic acidosis. His bicarb level is at 17. CAT scan of the brain was done today and the patient had shown mild diffuse cerebral atrophy with mild to moderate chronic small vessel ischemic changes. No other enhancing lesions. Family is at the bedside. The patient is lethargic and still profoundly weak. Objective - Vital Signs Vital signs: Vital Signs Temp 97.5 F L 03/20/17 12:00 Pulse 92 03/20/17 13:04 Resp 14 03/20/17 13:00 BP 107/50 03/20/17 13:00 Pulse Ox 100 03/20/17 13:00 Intake & Output 03/19/17 03/20/17 03/20/17 18:59 06:59 18:59 Intake Total 258.544 356.583 995 Output Total 400 1225 295 Balance -141.456 -868.417 700 Weight 99.9 kg 99.9 kg Intake: Intake, IV Titration 258.544 46.583 375 Amount Diltiazem 125 mg In 71.083 46.583 Sodium Chloride 0.9% 100 ml @ 5 MG/HR 5 mls/hr IV .Q24H [facility] Rx#:[id number] Heparin Sodium,Porcine/ 187.461 D5w Pmx 25,000 unit In Dextrose/Water 1 500ml. bag @ 18 UNITS/KG/HR 32. 65 mls/hr IV .[id number] [facility] Rx#:[id number] Sodium Chloride 0.9% 1, 375 000 ml @ 75 mls/hr IV . [id number] [facility] Rx#:[id number] Blood Product 310 620 Rc As-1 Unit 0 310 [id number] Rc Pheresis 2 As3 Unit 310 [id number] Output: Urine 400 1225 295 Other: Voiding Method Indwelling Catheter Indwelling Catheter - Exam The patient is an ill-looking 76-year-old male patient who is an some degree of respiratory distress and discomfort and pain in his buttocks area.Head exam was generally normal. There was no scleral icterus or corneal arcus. Mucous membranes were moist. Mucous membranes are dry. There is no oropharyngeal thrush seen. No open ulceration in the mucous membranes. Lung sounds are diminished and there is some scattered rhonchi and crackles heard throughout the lung his bilaterally. Heart sounds are irregular, possible sinus stool, no cervical murmurs appreciated.Abdominal exam revealed normal bowel sounds. The abdomen was soft, non-tender, and without masses, organomegaly, or appreciable enlargement of the abdominal aorta. This atrophic area shows no other pustular lesions several of them the largest measuring 2 cm in size with central purulent material. Extremities show no edema no cyanosis or clubbing at the pulses are diminished. Neurologically quite lethargic yet awake and moving all 4 extremities without any limitation. - Labs CBC & Chem 7: 03/20/17 13:08 03/20/17 04:15 Labs: Abnormal Lab Results - Last 24 Hours (Table) 03/18/17 03/19/17 03/19/17 Range/Units 17:47 16:34 19:53 WBC 0.1 L* (3.8-10.6) k/uL RBC 1.82 L (4.30-5.90) m/uL Hgb 6.4 L* (13.0-17.5) gm/dL Hct 19.1 L* (39.0-53.0) % MCV 105.4 H (80.0-100.0) fL Plt Count 33 L* (150-450) k/uL PT (9.0-12.0) sec Chloride (98-107) mmol/L Carbon Dioxide (22-30) mmol/L BUN (9-20) mg/dL Glucose (74-99) mg/dL POC Glucose (mg/dL) 134 H (75-99) mg/dL Calcium (8.4-10.2) mg/dL Crossmatch See Detail 03/20/17 03/20/17 03/20/17 Range/Units 00:07 04:15 04:15 WBC 0.2 L* 0.5 L* (3.8-10.6) k/uL RBC 2.19 L 1.99 L (4.30-5.90) m/uL Hgb 7.5 L 6.8 L* (13.0-17.5) gm/dL Hct 22.5 L 20.7 L (39.0-53.0) % MCV 102.5 H 104.2 H (80.0-100.0) fL Plt Count 26 L* 31 L* (150-450) k/uL PT (9.0-12.0) sec Chloride 117 H (98-107) mmol/L Carbon Dioxide 17 L (22-30) mmol/L BUN 26 H (9-20) mg/dL Glucose 127 H (74-99) mg/dL POC Glucose (mg/dL) (75-99) mg/dL Calcium 8.0 L (8.4-10.2) mg/dL Crossmatch 03/20/17 03/20/17 03/20/17 Range/Units 04:26 07:57 12:15 WBC (3.8-10.6) k/uL RBC (4.30-5.90) m/uL Hgb (13.0-17.5) gm/dL Hct (39.0-53.0) % MCV (80.0-100.0) fL Plt Count (150-450) k/uL PT 13.2 H (9.0-12.0) sec Chloride (98-107) mmol/L Carbon Dioxide (22-30) mmol/L BUN (9-20) mg/dL Glucose (74-99) mg/dL POC Glucose (mg/dL) 121 H 109 H (75-99) mg/dL Calcium (8.4-10.2) mg/dL Crossmatch 03/20/17 Range/Units 13:08 WBC 0.3 L* (3.8-10.6) k/uL RBC 2.58 L (4.30-5.90) m/uL Hgb 8.7 L D (13.0-17.5) gm/dL Hct 25.1 L (39.0-53.0) % MCV (80.0-100.0) fL Plt Count 23 L* (150-450) k/uL PT (9.0-12.0) sec Chloride (98-107) mmol/L Carbon Dioxide (22-30) mmol/L BUN (9-20) mg/dL Glucose (74-99) mg/dL POC Glucose (mg/dL) (75-99) mg/dL Calcium (8.4-10.2) mg/dL Crossmatch Microbiology - Last 24 Hours (Table) 03/18/17 21:50 Urine Culture - Final Urine,Voided 03/18/17 21:10 Blood Culture - Preliminary Blood No Growth after 24 hours Assessment and Plan Plan: Assessment 1 neutropenic sepsis. The patient is afebrile however he has very source of infection at these to be considered including the lungs, esophagitis and no other pustular lesions in the suprapubic and inguinal area which could be potentially staphylococcal or fungal. He is in acute atrial fibrillation with rapid ventricular response. No hypotension at this point. He is afebrile. 2 limited stage small cell lung cancer status post chemoradiation therapy. The patient has received one session of systemic chemotherapy with carboplatinum and FIELD SERVICE ENGINEER-16 and 10 sessions of radiation therapy 3 esophagitis/mucositis secondary to radiation therapy with secondary difficulty in swallowing. Rule out candidal esophagitis 4 pancytopenia secondary to chemotherapy 5 new-onset atrial fibrillation with rapid ventricular response, currently on a Cardizem drip and IV heparin 6 CHF with an ejection fraction of 35% 7 coronary artery disease with multivessel involvement and the patient is status post carotid bypass surgery 8 history of AICD placement 9 dysphagia 10 chronic stage III kidney failure 11 peripheral vascular disease with previous vascular intervention of the left lower extremity 12 prostate cancer status post prostatectomy 13 severe peripheral neuropathy 14 depression/anxiety 15 coronary artery bypass surgery, history of 16 dehydration secondary to above with a component of non-anion gap metabolic acidosis Plan The patient will be kept here in the ICU. Monitor the hematologic profile. Continue same antibiotic coverage. Awaiting cultures. ID is on the case. Oncology is on the case. Continue to follow make further recommendations based on this patient's progress. Condition remains critical.
--- NOTE | 2017-03-20 15:45 | P.CONS ---
History of Present Illness - Reason for Consult Consult date: 03/20/17 febrile neutropenia Requesting physician: Mike Crocker - Chief Complaint AMS - History of Present Illness Mr. Reinoso is a pleasant pt of Dr. Figueroa initially seen in consult at [facility] . He presented to [facility] with c/o hemoptysis, had been going on 8-9 years but progressed over the last month, copious amounts of bright red blood. Imaging there revealed a right hilar mass. Bronchoscopy with biopsy was done 02/19/17 and he was started on radiation immediately with palliative intent for hemoptysis. Pathology was positive for small cell lung cancer. His hemoptysis did improve with RT. Staging PET 03/02/17 showed uptake in the rt. hilar mass, there was a RUL 2 cm nodule, rt. paratracheal 2 cm node and a 1.5 cm precarinal node, CT brain negative. He was seen for his 1st OV on 03/05/17 and started chemo with carboplatin and etoposide, he is s/o 1st cycle completed in , days 1,2 and 3, he did not receive growth factor. Pt completed 10 radiation treatments for palliation of hemoptysis then he was re-simulated with plans for 10 more radiation with definitive intent with chemo. Pt is lethargic but does answer a few questions, he denied fever, vomiting or diarrhea. Daughter states that his throat is so sore that he quit eating and drinking a few days after chemo and has declined since, pt doubles over in pain is he is not medicated frequenty, pain is in the middle of the chest, pt is weak, cannot stand on his own. Review of Systems ROS unobtainable: due to mental status Constitutional: Reports as per HPI (per daughter) Past Medical History Past Medical History: Atrial Fibrillation, Cancer, Heart Failure, GERD/Reflux, Hyperlipidemia, Hypertension, Myocardial Infarction ([place]), Prostate Disorder, Renal Disease, Vascular Disorder Additional Past Medical History / Comment(s): Small cell lung cancer/limited stage currently on chemo radiation therapy, recent hospitalization for hemoptysis, coronary artery disease appears bypass surgery, congestion heart failure with ejection fraction of 30-35%, new onset atrial fibrillation, hyperlipidemia, hypertension, BPH, peripheral vascular disease with previous vascular intervention of the lower extremities, prostate cancer with previous surgery, peripheral neuropathy, Last Myocardial Infarction Date:: 05/27/15 History of Any Multi-Drug Resistant Organisms: MRSA Year Discovered:: 09/2015 MDRO Source:: RIGHT TESTICLE Past Surgical History: Coronary Bypass/CABG, Heart Catheterization, Joint Replacement, Orthopedic Surgery, Prostate Surgery, Tonsillectomy Additional Past Surgical History / Comment(s): 02/19/17 BRONCHOSCOPY WITH BAL/ BRUSHINGS/BX, 01/23/17 ICD, 05/26/15 4 VESSEL CABG, AORTAGRAM WITH BILATERAL RUNOFFS, PTBA WITH STENT L SFA, L TOTAL KNEE ARTHROPLASTY, L THUMB SX, 1998 PROSTATECTOMY. Past Anesthesia/Blood Transfusion Reactions: No Reported Reaction Past Psychological History: Anxiety, Depression Additional Psychological History / Comment(s): PT IS DEPRESSED OVER HIS MEDICAL CONDITION. PT STAYS WITH HIS ROVERTO DURING DAYS OF CANCER TREATMENT AND GOES HOME IF NO TREATMENT PLANNED. HE HAS HOME CARE. HE USES A WALKER IF GOING ANY DISTANCE. PT DRIVES. 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 No animal exposures Smoking Status: Former smoker Past Alcohol Use History: Occasional Additional Past Alcohol Use History / Comment(s): STARTED SMOKING AT AGE 15 QUIT SMOKING 2014 SMOKED 1 -1 1/2PPD Past Drug Use History: None Reported - Past Family History Father History Unknown: Yes Family Medical History: No Reported History Additional Family Medical History / Comment(s): FATHER YOUNG IN A BOATING ACCIDENT. Mother Family Medical History: No Reported History Additional Family Medical History / Comment(s): young IN A MVA. Medications and Allergies Home Medications Medication Instructions Recorded Confirmed Type Omeprazole [PriLOSEC] 20 mg PO BID 05/26/15 03/18/17 History Atorvastatin [Lipitor] 80 mg PO DAILY 08/15/15 03/18/17 History Ferrous Sulfate [Iron (65 MG 325 mg PO DAILY 12/19/15 03/18/17 History Elemental)] Oxybutynin Chloride [Ditropan] 5 mg PO QID 12/19/15 03/18/17 History Docusate [Colace] 100 mg PO TID 01/01/16 03/18/17 History Pyridoxine [Vitamin B-6] 100 mg PO DAILY 08/26/16 03/18/17 History Lisinopril [Zestril] 2.5 mg PO DAILY 01/23/17 03/18/17 History Metoprolol Tartrate [Lopressor] 50 mg PO TID 02/17/17 03/18/17 History Multivitamins, Thera [Multivitamin 1 tab PO DAILY 02/17/17 03/18/17 History (formulary)] Spironolactone [Aldactone] 25 mg PO DAILY@0800 02/17/17 03/18/17 History Cholecalciferol [Vitamin D3] 2,000 unit PO DAILY 03/12/17 03/18/17 History Fluconazole [Diflucan] 100 mg PO DAILY 03/12/17 03/18/17 History Fluticasone/Vilanterol [Breo 1 puff INHALATION RT-DAILY 03/12/17 03/18/17 History Ellipta 200-25 Mcg INH] Ipratropium/Albuterol Sulfate 1 puff INHALATION RT-QID 03/12/17 03/18/17 History [Combivent Respimat Inhaler] Ondansetron [Zofran] 4 mg PO Q12HR PRN 03/12/17 03/18/17 History Polyethylene Glycol 3350 [Miralax] 17 gm PO DAILY 03/12/17 03/18/17 History Vitamin E 400 unit PO DAILY 03/12/17 03/18/17 History Apixaban [Eliquis] 2.5 mg PO BID 03/18/17 03/18/17 History Gabapentin 600 mg PO QID 03/18/17 03/18/17 History Allergies Allergy/AdvReac Type Severity Reaction Status Date / Time No Known Allergies Allergy Verified 03/18/17 22:34 Physical Exam Vitals: Vital Signs Temp Pulse Pulse Resp BP Pulse Ox 03/20/17 13:04 92 03/20/17 13:00 97 14 107/50 100 03/20/17 12:50 92 03/20/17 12:00 97.5 F L 90 14 85/42 98 03/20/17 11:00 67 18 85/42 98 03/20/17 10:00 89 16 116/50 97 03/20/17 09:00 91 17 113/72 99 03/20/17 08:00 98.8 F 90 18 128/63 99 03/20/17 07:47 120 H 03/20/17 07:39 114 H 99 03/20/17 07:00 93 109/70 98 03/20/17 06:01 99.9 F H 96 14 100/68 99 03/20/17 06:00 110 H 103/58 99 03/20/17 05:31 99.9 F H 96 14 92/51 99 03/20/17 05:21 99.9 F H 96 14 92/51 99 03/20/17 05:00 99.5 F 81 93/49 98 03/20/17 04:00 99.9 F H 81 92/51 100 03/20/17 03:30 14 03/20/17 03:00 96 14 92/51 99 03/20/17 02:00 92 14 90/47 100 03/20/17 01:00 73 14 90/55 100 03/20/17 00:00 99.9 F H 73 14 98/54 100 03/19/17 23:00 93 16 105/68 97 03/19/17 22:00 133 H 16 133/88 98 03/19/17 21:54 99.8 F H 133 H 18 132/62 98 03/19/17 21:00 134 H 16 129/62 96 03/19/17 20:32 133 H 03/19/17 20:21 133 H 03/19/17 20:00 98.9 F 133 H 16 122/58 100 03/19/17 19:51 99.8 F H 125 H 18 122/62 98 03/19/17 19:21 99.3 F 111 H 16 119/57 03/19/17 19:15 125 H 03/19/17 19:11 100.8 F H 120 H 16 107/83 03/19/17 19:10 100.8 F H 123 H 16 107/53 100 03/19/17 19:00 96/50 03/19/17 18:56 96/50 03/19/17 18:20 100.4 F H 128 H 18 127/57 98 03/19/17 17:11 97.8 F 127 H 18 106/54 98 03/19/17 16:37 125 H 03/19/17 16:26 120 H 03/19/17 16:20 121 H 20 95/53 98 03/19/17 15:33 97.7 F 111 H 16 111/58 98 Intake and Output 03/20/17 03/20/17 03/20/17 06:59 14:59 22:59 Intake Total 46.583 995 Output Total 1075 295 Balance -1028.417 700 Intake: Intake, IV Titration 46.583 375 Amount Diltiazem 125 mg In 46.583 Sodium Chloride 0.9% 100 ml @ 5 MG/HR 5 mls/hr IV .Q24H [facility] Rx#:[id number] Sodium Chloride 0.9% 1, 375 000 ml @ 75 mls/hr IV . [id number] [facility] Rx#:[id number] Blood Product 0 620 Rc As-1 Unit 0 310 [id number] Output: Urine 1075 295 Other: Voiding Method Indwelling Catheter Indwelling Catheter Weight 99.9 kg 99.9 kg Patient Weight 03/21/17 06:59 Weight 99.9 kg - Constitutional pt is pale, lethargic, falls asleep during conversation, answers questions appropriately General appearance: average body habitus, no acute distress - EENT ENT: pharyngeal erythema, thrush - Neck Neck: no lymphadenopathy - Respiratory Respiratory: bilateral: diminished (weak inspiration) - Cardiovascular Rhythm: irregularly irregular Heart sounds: normal: S1, S2 leg Peripheral Edema: bilateral: Trace - Gastrointestinal General gastrointestinal: no absent bowel sounds, no decreased bowel sounds, no distended, no hepatomegaly, no hyperactive bowel sounds, normal bowel sounds, no organomegaly, no rigid, no scaphoid, soft, no splenomegaly, no tenderness, no umbilical hernia, no ventral hernia - Integumentary Integumentary: pale - Neurologic no visible gross deficits noted - Musculoskeletal Musculoskeletal: generalized weakness - Psychiatric lethargic Results CBC & Chem 7: 03/20/17 13:08 03/20/17 04:15 Labs: Abnormal Lab Results - Last 24 Hours (Table) 03/18/17 03/19/17 03/19/17 Range/Units 17:47 16:34 19:53 WBC 0.1 L* (3.8-10.6) k/uL RBC 1.82 L (4.30-5.90) m/uL Hgb 6.4 L* (13.0-17.5) gm/dL Hct 19.1 L* (39.0-53.0) % MCV 105.4 H (80.0-100.0) fL Plt Count 33 L* (150-450) k/uL PT (9.0-12.0) sec Chloride (98-107) mmol/L Carbon Dioxide (22-30) mmol/L BUN (9-20) mg/dL Glucose (74-99) mg/dL POC Glucose (mg/dL) 134 H (75-99) mg/dL Calcium (8.4-10.2) mg/dL Crossmatch See Detail 03/20/17 03/20/17 03/20/17 Range/Units 00:07 04:15 04:15 WBC 0.2 L* 0.5 L* (3.8-10.6) k/uL RBC 2.19 L 1.99 L (4.30-5.90) m/uL Hgb 7.5 L 6.8 L* (13.0-17.5) gm/dL Hct 22.5 L 20.7 L (39.0-53.0) % MCV 102.5 H 104.2 H (80.0-100.0) fL Plt Count 26 L* 31 L* (150-450) k/uL PT (9.0-12.0) sec Chloride 117 H (98-107) mmol/L Carbon Dioxide 17 L (22-30) mmol/L BUN 26 H (9-20) mg/dL Glucose 127 H (74-99) mg/dL POC Glucose (mg/dL) (75-99) mg/dL Calcium 8.0 L (8.4-10.2) mg/dL Crossmatch 03/20/17 03/20/17 03/20/17 Range/Units 04:26 07:57 12:15 WBC (3.8-10.6) k/uL RBC (4.30-5.90) m/uL Hgb (13.0-17.5) gm/dL Hct (39.0-53.0) % MCV (80.0-100.0) fL Plt Count (150-450) k/uL PT 13.2 H (9.0-12.0) sec Chloride (98-107) mmol/L Carbon Dioxide (22-30) mmol/L BUN (9-20) mg/dL Glucose (74-99) mg/dL POC Glucose (mg/dL) 121 H 109 H (75-99) mg/dL Calcium (8.4-10.2) mg/dL Crossmatch 03/20/17 Range/Units 13:08 WBC 0.3 L* (3.8-10.6) k/uL RBC 2.58 L (4.30-5.90) m/uL Hgb 8.7 L D (13.0-17.5) gm/dL Hct 25.1 L (39.0-53.0) % MCV (80.0-100.0) fL Plt Count 23 L* (150-450) k/uL PT (9.0-12.0) sec Chloride (98-107) mmol/L Carbon Dioxide (22-30) mmol/L BUN (9-20) mg/dL Glucose (74-99) mg/dL POC Glucose (mg/dL) (75-99) mg/dL Calcium (8.4-10.2) mg/dL Crossmatch Microbiology - Last 24 Hours (Table) 03/18/17 21:50 Urine Culture - Final Urine,Voided 03/18/17 21:10 Blood Culture - Preliminary Blood No Growth after 24 hours Chest x-ray: report reviewed Assessment and Plan Plan: 1) SCLC-on chemotherapy with definitive XRT, all treatment on hold for now. 2) Mucositis and thrush secondary to chemo/XRT-pt is on antifungal, oral support meds ordered, full liquid diet ordered, pain meds currently adequate 3) Pancytopenia secondary to chemotherapy-GCSF ordered. No PRBCs at this time. No platelets. No ASA, NSAIDs or anticoagulation, SCDs for DVT prophylaxis. Dr. Figueroa did discuss case with Dr. Courtney. 4) Lethargy and AMS-CT head ordered to evaluate for metastatic disease.
[2017-03-20] MEDS ORDERED: FUROSEMIDE 10 MG/ML 2 ML VIAL IV ONE (16:18)
[2017-03-20] MEDS: FILGRASTIM-SNDZ 480 MCG/0.8 ML SYRINGE SQ SCH (16:18)
[2017-03-20] MEDS: MAG HYDROX/AL HYDROX/SIMETH 30 ML, LIDOCAINE VISCOUS 30 ML, diphenhydrAMINE ELIXIR 75 M... PO SCH ×8 (17:56→22:32)
[2017-03-20] MEDS: MICAFUNGIN 100 MG in SODIUM CHLORIDE 0.9% 100 ML IVPB SCH (18:20)
[2017-03-20] MEDS: HEPARIN SODIUM,PORCINE/D5W PMX 25,000 UNIT in DEXTROSE/WATER 1 500ML.BAG IV SCH (21:23)
[2017-03-20] MEDS: METOPROLOL TARTRATE 50 MG TAB PO SCH (21:23)
[2017-03-20] MEDS: PANTOPRAZOLE 40 MG/10 ML VIAL IV SCH (22:31)
[2017-03-20] MEDS: ACETAMINOPHEN TAB 325 MG TAB PO PRN (22:50)
--- NOTE | 2017-03-20 22:55 | P.PN ---
Subjective Principal diagnosis: Febrile neutropenia 76-year-old male with a known history of small cell lung carcinoma who is been undergoing chemoradiation. Presents emergency center with increasing shortness of breath increasing weakness, increasing fatigue and increasing difficulty with swallowing. He was evaluated by bronchoscopy and endobronchial tumor was noted. She related it was a limited stage small cell lung carcinoma. In counseling and started radiation therapy with concomitant carboplatinum and [employer]-16. 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 Decreasing oral intake and increasing weakness. He now presents with evidence of fever, neutropenia and significant dehydration. He is being transferred from the emergency center to the intensive care unit given his atrial fibrillation and hypotension. He has a long-standing history of coronary artery disease atrial fibrillation as well as BPH chronic renal disease and peripheral vascular disease. Is related that he does have a low ejection fraction of 30-35%. His atrial fibrillation is chronic but his rate was quite elevated earlier. With resuscitation and diltiazem drip he has improved. Was having severe pain with Dilaudid and viscous lidocaine he has had some improvement of his status. Patient bit more oriented this evening. Aware it is at a hospital. Cannot state the name. This seemed to recognize the daughter. Objective - Vital Signs Vital signs: Vital Signs Temp 100.5 F H 03/20/17 20:00 Pulse 100 03/20/17 22:00 Resp 20 03/20/17 22:00 BP 109/53 03/20/17 22:00 Pulse Ox 99 03/20/17 22:00 Intake & Output 03/20/17 03/20/17 03/21/17 06:59 18:59 06:59 Intake Total 018.703 3670 330 Output Total 1225 1345 250 Balance -868.417 150 80 Weight 99.9 kg 99.9 kg Intake: Intake, IV Titration 46.583 875 300 Amount Cefepime 2 gm In Sodium 50 Chloride 0.9% 50 ml @ 100 mls/hr IVPB Q8H [facility] Rx#: [id number] Diltiazem 125 mg In 46.583 Sodium Chloride 0.9% 100 ml @ 5 MG/HR 5 mls/hr IV .Q24H [facility] Rx#:[id number] Sodium Chloride 0.9% 1, 825 300 000 ml @ 75 mls/hr IV . [id number] [facility] Rx#:[id number] Oral 30 Blood Product 310 620 Rc As-1 Unit 0 310 [id number] Rc Pheresis 2 As3 Unit 310 [id number] Output: Urine 1225 1345 250 Other: Voiding Method Indwelling Catheter Indwelling Catheter - Exam 76-year-old male who appears to be acutely ill. He has pallor and complaints of significant discomfort in his oral cavity and trying to swallow HEENT: Anicteric conjunctiva are pink and moist nasal mucosa grossly intact without significant lesions, there is evidence of mucositis without acute bleeding Neck: The neck is supple without significant lymphadenopathy or thyromegaly. Lungs: Symmetric air entry is noted. Basilar crackles are noted. Expiratory wheezes are scattered no bronchial sounds Heart: Irregularly irregular rate about 120. Soft S4 no murmur click or rub is noted Abdomen: Positive bowel sounds soft and nontender without palpable masses or organomegaly. There was no guarding or rebound. Extremities: Extremities have some generalized edema.. Neuro: Awake alert oriented to person place and time. Some narcotic effect is noted. But no acute gross focal sensory motor deficits. Skin on the interior aspect of both thighs, as well as anterior aspect of both thighs and lower abdominal wall or multiple small skin lesions that have developed since he's been on chemotherapy. Some DuoDERM is been applied to cover them for some relief. Some evidence of some mild erythema to the anterior chest wall as well to his back from initiation of the recent radiation therapy. - Labs CBC & Chem 7: 03/20/17 13:08 03/20/17 04:15 Labs: Abnormal Lab Results - Last 24 Hours (Table) 03/18/17 03/20/17 03/20/17 Range/Units 17:47 00:07 04:15 WBC 0.2 L* (3.8-10.6) k/uL RBC 2.19 L (4.30-5.90) m/uL Hgb 7.5 L (13.0-17.5) gm/dL Hct 22.5 L (39.0-53.0) % MCV 102.5 H (80.0-100.0) fL Plt Count 26 L* (150-450) k/uL PT (9.0-12.0) sec Chloride 117 H (98-107) mmol/L Carbon Dioxide 17 L (22-30) mmol/L BUN 26 H (9-20) mg/dL Glucose 127 H (74-99) mg/dL POC Glucose (mg/dL) (75-99) mg/dL Calcium 8.0 L (8.4-10.2) mg/dL Crossmatch See Detail 03/20/17 03/20/17 03/20/17 Range/Units 04:15 04:26 07:57 WBC 0.5 L* (3.8-10.6) k/uL RBC 1.99 L (4.30-5.90) m/uL Hgb 6.8 L* (13.0-17.5) gm/dL Hct 20.7 L (39.0-53.0) % MCV 104.2 H (80.0-100.0) fL Plt Count 31 L* (150-450) k/uL PT 13.2 H (9.0-12.0) sec Chloride (98-107) mmol/L Carbon Dioxide (22-30) mmol/L BUN (9-20) mg/dL Glucose (74-99) mg/dL POC Glucose (mg/dL) 121 H (75-99) mg/dL Calcium (8.4-10.2) mg/dL Crossmatch 03/20/17 03/20/17 Range/Units 12:15 13:08 WBC 0.3 L* (3.8-10.6) k/uL RBC 2.58 L (4.30-5.90) m/uL Hgb 8.7 L D (13.0-17.5) gm/dL Hct 25.1 L (39.0-53.0) % MCV (80.0-100.0) fL Plt Count 23 L* (150-450) k/uL PT (9.0-12.0) sec Chloride (98-107) mmol/L Carbon Dioxide (22-30) mmol/L BUN (9-20) mg/dL Glucose (74-99) mg/dL POC Glucose (mg/dL) 109 H (75-99) mg/dL Calcium (8.4-10.2) mg/dL Crossmatch Microbiology - Last 24 Hours (Table) 03/20/17 12:22 Wound Culture - Preliminary Abdomen 03/18/17 21:50 Urine Culture - Final Urine,Voided 03/18/17 21:10 Blood Culture - Preliminary Blood No Growth after 24 hours Laboratory Results WBC 0.3 k/uL (3.8-10.6) L* 03/20/17 13:08 RBC 2.58 m/uL (4.30-5.90) L 03/20/17 13:08 Hgb 8.7 gm/dL (13.0-17.5) L D 03/20/17 13:08 Hct 25.1 % (39.0-53.0) L 03/20/17 13:08 MCV 97.3 fL (80.0-100.0) D 03/20/17 13:08 MCH 33.7 pg (25.0-35.0) 03/20/17 13:08 MCHC 34.7 g/dL (31.0-37.0) 03/20/17 13:08 RDW 15.3 % (11.5-15.5) 03/20/17 13:08 Plt Count 23 k/uL (150-450) L* 03/20/17 13:08 Neutrophils % 27 % 03/18/17 21:10 Lymphocytes % 58 % 03/18/17 21:10 Monocytes % 6 % 03/18/17 21:10 Eosinophils % 3 % 03/18/17 21:10 Basophils % 3 % 03/18/17 21:10 Neutrophils # 0.1 k/uL (1.3-7.7) L 03/18/17 21:10 Lymphocytes # 0.1 k/uL (1.0-4.8) L 03/18/17 21:10 Monocytes # 0.0 k/uL (0-1.0) 03/18/17 21:10 Eosinophils # 0.0 k/uL (0-0.7) 03/18/17 21:10 Basophils # 0.0 k/uL (0-0.2) 03/18/17 21:10 Differential Comment 03/20/17 13:08 Manual Slide Review Performed 03/20/17 04:15 Hypochromasia Slight 03/19/17 16:34 Poikilocytosis (manual Present 03/19/17 03:12 Anisocytosis (manual) Present 03/19/17 03:12 Macrocytosis Moderate 03/20/17 04:15 PT 13.2 sec (9.0-12.0) H 03/20/17 04:26 INR 1.3 (<1.1) 03/20/17 04:26 APTT 24.3 sec (22.0-30.0) 03/20/17 04:26 Sodium 142 mmol/L (137-145) 03/20/17 04:15 Potassium 4.6 mmol/L (3.5-5.1) 03/20/17 04:15 Chloride 117 mmol/L (98-107) H 03/20/17 04:15 Carbon Dioxide 17 mmol/L (22-30) L 03/20/17 04:15 Anion Gap 8 mmol/L 03/20/17 04:15 BUN 26 mg/dL (9-20) H 03/20/17 04:15 Creatinine 1.00 mg/dL (0.66-1.25) 03/20/17 04:15 Est GFR (MDRD) Af Amer >60 (>60 ml/min/1.73 sqM) 03/20/17 04:15 Est GFR (MDRD) Non-Af >60 (>60 ml/min/1.73 sqM) 03/20/17 04:15 Glucose 127 mg/dL (74-99) H 03/20/17 04:15 POC Glucose (mg/dL) 109 mg/dL (75-99) H 03/20/17 12:15 POC Glu Data Warehousing Manager ID Kasey Reid 03/20/17 12:15 Plasma Lactic Acid Arnaldo 1.3 mmol/L (0.7-2.0) 03/18/17 21:10 Calcium 8.0 mg/dL (8.4-10.2) L 03/20/17 04:15 Magnesium 2.2 mg/dL (1.6-2.3) 03/20/17 04:15 Total Bilirubin 1.0 mg/dL (0.2-1.3) 03/19/17 03:12 AST 40 U/L (17-59) 03/19/17 03:12 ALT 50 U/L (21-72) 03/19/17 03:12 Alkaline Phosphatase 147 U/L (38-126) H 03/19/17 03:12 Troponin I 0.013 ng/mL (0.000-0.034) 03/19/17 03:12 Total Protein 5.9 g/dL (6.3-8.2) L 03/19/17 03:12 Albumin 3.0 g/dL (3.5-5.0) L 03/19/17 03:12 Urine Color Yellow 03/18/17 21:50 Urine Appearance Clear (Clear) 03/18/17 21:50 Urine pH 6.0 (5.0-8.0) 03/18/17 21:50 Ur Specific [place] 1.029 (1.001-1.035) 03/18/17 21:50 Urine Protein Trace (Negative) H 03/18/17 21:50 Urine Glucose (UA) Negative (Negative) 03/18/17 21:50 Urine Ketones Negative (Negative) 03/18/17 21:50 Urine Blood Negative (Negative) 03/18/17 21:50 Urine Nitrite Negative (Negative) 03/18/17 21:50 Urine Bilirubin Negative (Negative) 03/18/17 21:50 Urine Urobilinogen <2.0 mg/dL (<2.0) 03/18/17 21:50 Ur Leukocyte Esterase Negative (Negative) 03/18/17 21:50 Blood Type O Negative 03/18/17 17:47 Blood Type Recheck No 03/18/17 17:47 Antibody Screen NEGATIVE 03/18/17 17:47 Crossmatch See Detail 03/18/17 17:47 Spec Expiration Date 03/21/2017 - 230903/18/17 17:47 Microbiology 03/20/17 12:22 Abdomen Wound Culture - Preliminary 03/18/17 21:50 Urine,Voided Urine Culture - Final 03/18/17 21:10 Blood Blood Culture - Preliminary No Growth after 24 hours Assessment and Plan (1) Febrile neutropenia Narrative/Plan: 76-year-old male presents the emergency center with evidence of feeling quite poorly. Having increasing difficulties with swallowing due to significant pain. Has evidence of some radiation esophagitis as well as mucositis at this time. Has had some response to Dilaudid and cool solution. These will continue. Oncology is following. Radiation oncology also following. Emollient can be applied to the irritation to the skin For the febrile neutropenia antibiotic therapy with cefepime and vancomycin is being utilized because of the extensive mucositis vancomycin is indicated. Cultures are in process Supportive care Fluid resuscitation is occurring Patient has multiple small skin lesions likely related to the current chemotherapy. They are not necrotic and do not appear to be ecthyma gangrenosum at this time, more blisterlike. Given her irritation symptoms and can be applied to these areas and when improved the hydrocolloid can be utilized. Cultures are processing being monitored. Given the significant mucositis in fever the patient is at risk of underlying fungal infection and with this micafungin is utilized. Albumin is low and patient will need significant protein supplementation as improvement in eating occurs Patient is slightly improved today. Is evidence of some improved orientation. Not having hypotension at this time. Is less pruritus and discomfort than yesterday. Cultures in process continue current antibiotic therapy given the apicitis and febrile neutropenia. Status: Acute (2) Small cell lung cancer Status: Acute (3) Atrial flutter with rapid ventricular response Status: Acute (4) Anemia Status: Acute
[2017-03-21] MEDS: CEFEPIME 2 GM in SODIUM CHLORIDE 0.9% 50 ML IVPB SCH ×3 (01:22→16:26)
[2017-03-21] MEDS: GABAPENTIN 300 MG CAP PO SCH ×5 (01:29→22:07)
[2017-03-21] MEDS: OXYBUTYNIN CHLORIDE 5 MG TAB PO SCH ×5 (01:29→22:07)
[2017-03-21] MEDS: METOPROLOL TARTRATE 25 MG TAB PO SCH ×2 (01:29→08:50)
[2017-03-21] MEDS: SODIUM CHLORIDE 0.9% 1,000 ML IV SCH ×2 (01:31→11:56)
[2017-03-21] MEDS: ACETAMINOPHEN TAB 325 MG TAB PO PRN (02:57)
[2017-03-21] MEDS: HYDROmorphone 1 MG/ML 1 ML SYRINGE IVP PRN ×8 (05:26→23:03)
[2017-03-21] MEDS ORDERED: VANCOMYCIN TROUGH DUE 1 EACH MISC MISCELLANE ONE (07:00)
[2017-03-21 07:19] LABS: Aty Lym Flag Slight; CH 32.4; HCT 23.3 % (39.0-53.0); HDW 3.05; HGB 7.8 gm/dL (13.0-17.5); Hypochromasia Slight; MCH 34.1 pg (25.0-35.0); MCHC 33.5 g/dL (31.0-37.0); Macrocytosis Slight; Mean Platelet Volume 9.4; RBC 2.29 m/uL (4.30-5.90); RDW 15.4 % (11.5-15.5); WBC (Perox) 0.24
[2017-03-21 07:33] LABS: WBC 0.3 k/uL (3.8-10.6)
[2017-03-21 07:57] LABS: Anion Gap 9 mmol/L; Blood Urea Nitrogen 25 mg/dL (9-20); Calcium 8.3 mg/dL (8.4-10.2); Carbon Dioxide 16 mmol/L (22-30); Chloride 119 mmol/L (98-107); Glucose 106 mg/dL (74-99); Non-African American GFR(MDRD) >60 (>60 ml/min/1.73 sqM); Potassium 4.2 mmol/L (3.5-5.1); Sodium 144 mmol/L (137-145)
[2017-03-21] MEDS: LORazepam 2 MG/ML SYRINGE IV PRN ×2 (07:57→19:53)
[2017-03-21] MEDS: PANTOPRAZOLE 40 MG/10 ML VIAL IV SCH ×2 (07:57→16:55)
[2017-03-21 08:43] LABS: Add Differential Manual Differential
[2017-03-21 08:44] LABS: Tear Drop Cells Present
[2017-03-21 08:45] LABS: Ovalocytes Present
[2017-03-21] MEDS: SPIRONOLACTONE 25 MG TAB PO SCH (08:49)
[2017-03-21] MEDS: VITAMIN E (DL,TOCOPHERYL ACET) 400 UNIT CAP PO SCH (08:50)
[2017-03-21] MEDS: CHOLECALCIFEROL 1,000 UNIT TAB PO SCH (08:50)
[2017-03-21] MEDS: ATORVASTATIN 80 MG TAB PO SCH (08:50)
[2017-03-21] MEDS: MULTIVITAMINS, THERA 1 EACH TAB PO SCH (08:50)
[2017-03-21] MEDS: PYRIDOXINE 50 MG TAB PO SCH (08:50)
[2017-03-21] MEDS: DOCUSATE ORAL SOLN 100 MG/10 ML CUP PO SCH ×3 (08:50→22:07)
[2017-03-21] MEDS: FERROUS SULFATE 325 MG TAB PO SCH (08:50)
[2017-03-21] MEDS: IPRATROPIUM-ALBUTEROL 3 ML NEB INHALATION SCH ×4 (08:57→21:13)
[2017-03-21] MEDS ORDERED: METOPROLOL TARTRATE 5 MG/5 ML VIAL IVP PRN (11:18)
[2017-03-21] MEDS: ZINC OXIDE 20% OINT 28.4 GM TUBE TOPICAL SCH ×3 (11:55→22:08)
[2017-03-21] MEDS: VANCOMYCIN 1,500 MG in SODIUM CHLORIDE 0.9% 250 ML IVPB SCH (11:55)
[2017-03-21] MEDS: HALOPERIDOL LACTATE 5 MG/ML 1 ML VIAL IVP PRN ×4 (11:56→23:03)
[2017-03-21] MEDS: MAG HYDROX/AL HYDROX/SIMETH 30 ML, LIDOCAINE VISCOUS 30 ML, diphenhydrAMINE ELIXIR 75 M... PO SCH ×12 (12:07→22:08)
[2017-03-21] MEDS: HYDROCORTISONE 1% CREAM 454 GM JAR TOPICAL SCH ×2 (12:07→21:22)
[2017-03-21] MEDS: FILGRASTIM-SNDZ 480 MCG/0.8 ML SYRINGE SQ SCH (13:23)
--- NOTE | 2017-03-21 15:04 | P.PN ---
Subjective I AM ALSO COVERING FOR DR. JONES FOR THIS EVALUATION. 76-year-old male patient who is quite ill and he comes into the hospital because of various medical problems and chronic shortness of breath and difficulty in swallowing and chest congestion and generalized weakness and fatigue. The patient also had limited changes in his mentation. Note that the patient has history of coronary artery disease and he has undergone previous carotid bypass surgery 2014. 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 He has also peripheral vascular disease and has undergone stenting of the left lower extremity. He was recently diagnosed having small cell lung cancer. Diagnosed was established by bronchoscopy as the patient was found to have endobronchial tumor and based on the limited staging of the small cell lung cancer the patient was referred to radiation oncology and hematology oncology. A patient was started on radiation therapy and he was given a total of 10 sessions of radiation therapy and he has another 10 sessions to go. He was also given the first session of systemic chemotherapy with a combination of carboplatinum and DEVELOPER RELATIONS MANAGER-16. Note that the patient was doing well to around a few days ago and he started developing worsening in his mucositis and swallowing. His chest started becoming more congested. He was unable to swallow. He became progressively more weak and dehydrated. The family and himself denied any episodes of aspiration. He denied having any nausea vomiting or diarrhea. He reported burning sensation in his upper chest. At the same time he has noted some purulent nodules arising in his groin and suprapubic area. These are small nodular lesions that are measuring 1-2 cm in size which have some central purulent material draining. No dysuria. No frequency. No urgency. He still producing urine output. In the burst department the patient was found to be also in atrial fibrillation with rapid ventricular response and he was started on IV heparin and IV Cardizem. Rate is still tachycardic in the 120 range. At the same time the patient was found to be neutropenic and pancytopenic. His white cell count was at 0.2. He is single was 8.4. His platelet count at 48, 000. His creatinine was at 1.2. The patient was started on IV fluids. He was given IV fluid boluses and currently is on any normal saline infusion rate of 1 25 mL an hour. The patient is also on a combination of cefepime and vancomycin. No fever at this point. No headache. No neck stiffness. On 03/20/2017 I'm seeing this patient in follow-up in the intensive care unit. He is doing slightly better. Still unable to swallow and still having burning sensation in his throat and upper chest related to severe mucositis. He is afebrile. He is hemodynamically stable. He is on broad-spectrum antibiotics. All of the cultures of been negative. Still pancytopenic and the white cell count today is at 0.3 with a hemoglobin of 8.7 and platelet count of 23,000. He is still in atrial fibrillation with rate being controlled. He is on no anti -coagulation based on his underlying thrombocytopenia. He has a component of non-anion gap metabolic acidosis. His bicarb level is at 17. CAT scan of the brain was done today and the patient had shown mild diffuse cerebral atrophy with mild to moderate chronic small vessel ischemic changes. No other enhancing lesions. Family is at the bedside. The patient is lethargic and still profoundly weak. On 03/21/2017 I'm seeing this patient in follow-up in the intensive care units. Very much delirious and overnight very much agitated for which she was given Haldol and Ativan. Bit more comfortable and calm her today this morning. Family is at the bedside. Remains profoundly pancytopenic without any major recovery in his hematologic profile. Afebrile and hemodynamically stable covered with broad-spectrum antibiotics. All of the cultures have not indicated any specific microbial growth for now. ID is on the case. The pustules and the groin and suprapubic area remains unchanged. There are several of them at least 6 and only a few had some purulent center which seems to be much more dried up on today's evaluation. No bleeding. Platelet counts have dropped down to 13,000. Vancomycin trough is at 17.8. Objective - Vital Signs Vital signs: Vital Signs Temp 99.0 F 03/21/17 08:00 Pulse 134 H 03/21/17 13:00 Resp 18 03/21/17 13:00 BP 84/47 03/21/17 13:00 Pulse Ox 98 03/21/17 09:00 Intake & Output 03/20/17 03/21/17 03/21/17 18:59 06:59 18:59 Intake Total 1495 980 875 Output Total 1345 900 570 Balance 150 80 305 Weight 99.9 kg 100.9 kg 100.9 kg Intake: Intake, IV Titration 875 950 875 Amount Cefepime 2 gm In Sodium 50 50 100 Chloride 0.9% 50 ml @ 100 mls/hr IVPB Q8H ERNESTO Rx#: [id number] Sodium Chloride 0.9% 1, 825 900 525 000 ml @ 75 mls/hr IV . [id number] ERNESTO Rx#:[id number] Vancomycin 1,500 mg In 250 Sodium Chloride 0.9% 250 ml @ 125 mls/hr IVPB Q16H ERNESTO Rx#:[id number] Oral 30 Blood Product 620 Rc As-1 Unit 310 [id number] Output: Urine 1345 900 570 Other: Voiding Method Indwelling Catheter Indwelling Catheter Indwelling Catheter # Bowel Movements 0 - Exam The patient is an ill-looking 76-year-old male patient who is an some degree of respiratory distress and discomfort and pain in his buttocks area.the patient is on and off moaning and thrashing in bed more agitated earlier and seems to be quite a bit sedated at this point. Neurologic exam is nonfocal and the patient is moving all 4 extremities. Head exam was generally normal. There was no scleral icterus or corneal arcus. Mucous membranes were moist. Mucous membranes are dry. There is no oropharyngeal thrush seen. No open ulceration in the mucous membranes. Lung sounds are diminished and there is some scattered rhonchi and crackles heard throughout the lung his bilaterally. Heart sounds are irregular, possible sinus stool, no cervical murmurs appreciated.Abdominal exam revealed normal bowel sounds. The abdomen was soft, non-tender, and without masses, organomegaly, or appreciable enlargement of the abdominal aorta. This atrophic area shows no other pustular lesions several of them the largest measuring 2 cm in size with central purulent material. Extremities show no edema no cyanosis or clubbing at the pulses are diminished. Neurologically quite lethargic yet awake and moving all 4 extremities without any limitation. - Labs CBC & Chem 7: 03/21/17 07:03 03/21/17 07:03 Labs: Abnormal Lab Results - Last 24 Hours (Table) 03/21/17 03/21/17 Range/Units 07:03 07:03 WBC 0.3 L* (3.8-10.6) k/uL RBC 2.29 L (4.30-5.90) m/uL Hgb 7.8 L (13.0-17.5) gm/dL Hct 23.3 L (39.0-53.0) % MCV 102.0 H (80.0-100.0) fL Plt Count 13 L* (150-450) k/uL Chloride 119 H (98-107) mmol/L Carbon Dioxide 16 L (22-30) mmol/L BUN 25 H (9-20) mg/dL Glucose 106 H (74-99) mg/dL Calcium 8.3 L (8.4-10.2) mg/dL Microbiology - Last 24 Hours (Table) 03/21/17 11:35 Wound Culture - Preliminary Groin 03/20/17 12:22 Gram Stain - Preliminary Abdomen Wound Culture - Preliminary 03/18/17 21:10 Blood Culture - Preliminary Blood No Growth after 48 hours 03/18/17 21:50 Urine Culture - Final Urine,Voided Assessment and Plan Plan: Assessment 1 neutropenic sepsis. The patient is afebrile however he has very source of infection at these to be considered including the lungs, esophagitis and no other pustular lesions in the suprapubic and inguinal area which could be potentially staphylococcal or fungal. Note that all of the cultures still negative for now 2 limited stage small cell lung cancer status post chemoradiation therapy. The patient has received one session of systemic chemotherapy with carboplatinum and DEVELOPER RELATIONS MANAGER-16 and 10 sessions of radiation therapy 3 esophagitis/mucositis secondary to radiation therapy with secondary difficulty in swallowing. Rule out candidal esophagitis 4 pancytopenia secondary to chemotherapy. The patient's hemoglobin is at 7.8 with a platelet counts of 13. The patient remains profoundly neutropenic with a white cell count of 0.3. The patient is receiving Zarxio 5 new-onset atrial fibrillation with rapid ventricular response, currently on a Cardizem drip and IV heparin and the rate is under better control for now. 6 CHF with an ejection fraction of 35% 7 coronary artery disease with multivessel involvement and the patient is status post carotid bypass surgery 8 history of AICD placement 9 dysphagia, currently nothing by mouth 10 acute kidney injury, improved in the creatinine normalized 11 peripheral vascular disease with previous vascular intervention of the left lower extremity 12 prostate cancer status post prostatectomy 13 severe peripheral neuropathy 14 depression/anxiety 15 coronary artery bypass surgery, history of 16 dehydration secondary to above with a component of non-anion gap metabolic acidosis Plan Patient became to the intensive care unit. Continue supportive care. Consider transfusing the patient with platelets and this will discuss further with hematology. Antibiotic coverage is adequate. Haldol for delirium and agitation. Unfortunately his recovery has been slow and based on ongoing medical problems and severity of the left the patient carries an increased mortality risk. It was clearly discussed with the daughter the bedside. We'll continue to follow make further recommendations based on his progress. We'll see the patient along with various consultants.
[2017-03-21] MEDS: METOPROLOL TARTRATE 5 MG/5 ML VIAL IVP SCH (16:54)
[2017-03-21] MEDS: MICAFUNGIN 100 MG in SODIUM CHLORIDE 0.9% 100 ML IVPB SCH (16:55)
--- NOTE | 2017-03-21 23:13 | P.PN ---
Subjective Principal diagnosis: Febrile neutropenia 76-year-old male with a known history of small cell lung carcinoma who is been undergoing chemoradiation. Presents emergency center with increasing shortness of breath increasing weakness, increasing fatigue and increasing difficulty with swallowing. He was evaluated by bronchoscopy and endobronchial tumor was noted. She related it was a limited stage small cell lung carcinoma. In counseling and started radiation therapy with concomitant carboplatinum and AIR PUMPER-16. 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 Decreasing oral intake and increasing weakness. He now presents with evidence of fever, neutropenia and significant dehydration. He is being transferred from the emergency center to the intensive care unit given his atrial fibrillation and hypotension. He has a long-standing history of coronary artery disease atrial fibrillation as well as BPH chronic renal disease and peripheral vascular disease. Is related that he does have a low ejection fraction of 30-35%. His atrial fibrillation is chronic but his rate was quite elevated earlier. With resuscitation and diltiazem drip he has improved. Was having severe pain with Dilaudid and viscous lidocaine he has had some improvement of his status. Patient is more agitated today. The family are staying with him continuously to help with his orientation and agitation. He does attempt to get out of bed although he is way too weak. Condition is discussed with the daughter who is present. Objective - Vital Signs Vital signs: Vital Signs Temp 100.5 F H 03/21/17 22:27 Pulse 130 H 03/21/17 22:27 Resp 31 H 03/21/17 22:27 BP 132/68 03/21/17 22:27 Pulse Ox 97 03/21/17 20:30 Intake & Output 03/21/17 03/21/17 03/22/17 06:59 18:59 06:59 Intake Total 980 1300 376 Output Total 900 1020 50 Balance 80 280 326 Weight 100.9 kg 100.9 kg Intake: Intake, IV Titration 950 1300 75 Amount Cefepime 2 gm In Sodium 50 150 Chloride 0.9% 50 ml @ 100 mls/hr IVPB Q8H ER[facility] Rx#: [id number] Sodium Chloride 0.9% 1, 900 900 75 000 ml @ 75 mls/hr IV . [id number] ERNE[facility]O Rx#:[id number] Vancomycin 1,500 mg In 250 Sodium Chloride 0.9% 250 ml @ 125 mls/hr IVPB Q16H ERNESTO Rx#:[id number] Oral 30 Blood Product 301 Platelet Pheresis Acda1 301 Unit [id number] Output: Urine 900 1020 50 Other: Voiding Method Indwelling Catheter Indwelling Catheter # Bowel Movements 0 - Exam 76-year-old male who appears to be acutely ill. He has pallor and complaints of significant discomfort in his oral cavity and trying to swallow HEENT: Anicteric conjunctiva are pink and moist nasal mucosa grossly intact without significant lesions, there is evidence of mucositis without acute bleeding Neck: The neck is supple without significant lymphadenopathy or thyromegaly. Lungs: Symmetric air entry is noted. Basilar crackles are noted. Expiratory wheezes are scattered no bronchial sounds Heart: Irregularly irregular rate about 120. Soft S4 no murmur click or rub is noted Abdomen: Positive bowel sounds soft and nontender without palpable masses or organomegaly. There was no guarding or rebound. Extremities: Extremities have some generalized edema.. Neuro: Patient is awake and not simply agitated the moment which is apparently much improved from earlier in the day. He is calm by his daughter but does not otherwise follow commands. Skin on the interior aspect of both thighs, as well as anterior aspect of both thighs and lower abdominal wall or multiple small skin lesions that have developed since he's been on chemotherapy. Some DuoDERM is been applied to cover them for some relief. Some evidence of some mild erythema to the anterior chest wall as well to his back from initiation of the recent radiation therapy. - Labs CBC & Chem 7: 03/21/17 07:03 03/21/17 07:03 Labs: Abnormal Lab Results - Last 24 Hours (Table) 03/18/17 03/21/17 03/21/17 Range/Units 17:47 07:03 07:03 WBC 0.3 L* (3.8-10.6) k/uL RBC 2.29 L (4.30-5.90) m/uL Hgb 7.8 L (13.0-17.5) gm/dL Hct 23.3 L (39.0-53.0) % MCV 102.0 H (80.0-100.0) fL Plt Count 13 L* (150-450) k/uL Chloride 119 H (98-107) mmol/L Carbon Dioxide 16 L (22-30) mmol/L BUN 25 H (9-20) mg/dL Glucose 106 H (74-99) mg/dL Calcium 8.3 L (8.4-10.2) mg/dL Crossmatch See Detail Microbiology - Last 24 Hours (Table) 03/20/17 12:22 Gram Stain - Preliminary Abdomen Wound Culture - Preliminary Presumptive MRSA Group D Enterococcus 03/21/17 11:35 Gram Stain - Preliminary Groin Wound Culture - Preliminary 03/18/17 21:10 Blood Culture - Preliminary Blood No Growth after 48 hours Laboratory Results WBC 0.3 k/uL (3.8-10.6) L* 03/21/17 07:03 RBC 2.29 m/uL (4.30-5.90) L 03/21/17 07:03 Hgb 7.8 gm/dL (13.0-17.5) L 03/21/17 07:03 Hct 23.3 % (39.0-53.0) L 03/21/17 07:03 MCV 102.0 fL (80.0-100.0) H 03/21/17 07:03 MCH 34.1 pg (25.0-35.0) 03/21/17 07:03 MCHC 33.5 g/dL (31.0-37.0) 03/21/17 07:03 RDW 15.4 % (11.5-15.5) 03/21/17 07:03 Plt Count 13 k/uL (150-450) L* 03/21/17 07:03 Neutrophils % 27 % 03/18/17 21:10 Lymphocytes % 58 % 03/18/17 21:10 Monocytes % 6 % 03/18/17 21:10 Eosinophils % 3 % 03/18/17 21:10 Basophils % 3 % 03/18/17 21:10 Neutrophils # 0.1 k/uL (1.3-7.7) L 03/18/17 21:10 Lymphocytes # 0.1 k/uL (1.0-4.8) L 03/18/17 21:10 Monocytes # 0.0 k/uL (0-1.0) 03/18/17 21:10 Eosinophils # 0.0 k/uL (0-0.7) 03/18/17 21:10 Basophils # 0.0 k/uL (0-0.2) 03/18/17 21:10 Differential Comment UP 03/21/17 07:03 Manual Slide Review Performed 03/20/17 04:15 Hypochromasia Slight 03/21/17 07:03 Poikilocytosis (manual Present 03/19/17 03:12 Anisocytosis (manual) Present 03/19/17 03:12 Macrocytosis Slight 03/21/17 07:03 Tear Drop Cells Present 03/21/17 07:03 Ovalocytes Present 03/21/17 07:03 PT 13.2 sec (9.0-12.0) H 03/20/17 04:26 INR 1.3 (<1.1) 03/20/17 04:26 APTT 24.3 sec (22.0-30.0) 03/20/17 04:26 Sodium 144 mmol/L (137-145) 03/21/17 07:03 Potassium 4.2 mmol/L (3.5-5.1) 03/21/17 07:03 Chloride 119 mmol/L (98-107) H 03/21/17 07:03 Carbon Dioxide 16 mmol/L (22-30) L 03/21/17 07:03 Anion Gap 9 mmol/L 03/21/17 07:03 BUN 25 mg/dL (9-20) H 03/21/17 07:03 Creatinine 1.03 mg/dL (0.66-1.25) 03/21/17 07:03 Est GFR (MDRD) Af Amer >60 (>60 ml/min/1.73 sqM) 03/21/17 07:03 Est GFR (MDRD) Non-Af >60 (>60 ml/min/1.73 sqM) 03/21/17 07:03 Glucose 106 mg/dL (74-99) H 03/21/17 07:03 POC Glucose (mg/dL) 109 mg/dL (75-99) H 03/20/17 12:15 POC Glu Vocational Nursing Instructor ID Kasey Reid 03/20/17 12:15 Plasma Lactic Acid Arnaldo 1.3 mmol/L (0.7-2.0) 03/18/17 21:10 Calcium 8.3 mg/dL (8.4-10.2) L 03/21/17 07:03 Magnesium 2.2 mg/dL (1.6-2.3) 03/20/17 04:15 Total Bilirubin 1.0 mg/dL (0.2-1.3) 03/19/17 03:12 AST 40 U/L (17-59) 03/19/17 03:12 ALT 50 U/L (21-72) 03/19/17 03:12 Alkaline Phosphatase 147 U/L (38-126) H 03/19/17 03:12 Troponin I 0.013 ng/mL (0.000-0.034) 03/19/17 03:12 Total Protein 5.9 g/dL (6.3-8.2) L 03/19/17 03:12 Albumin 3.0 g/dL (3.5-5.0) L 03/19/17 03:12 Urine Color Yellow 03/18/17 21:50 Urine Appearance Clear (Clear) 03/18/17 21:50 Urine pH 6.0 (5.0-8.0) 03/18/17 21:50 Ur Specific [place] 1.029 (1.001-1.035) 03/18/17 21:50 Urine Protein Trace (Negative) H 03/18/17 21:50 Urine Glucose (UA) Negative (Negative) 03/18/17 21:50 Urine Ketones Negative (Negative) 03/18/17 21:50 Urine Blood Negative (Negative) 03/18/17 21:50 Urine Nitrite Negative (Negative) 03/18/17 21:50 Urine Bilirubin Negative (Negative) 03/18/17 21:50 Urine Urobilinogen <2.0 mg/dL (<2.0) 03/18/17 21:50 Ur Leukocyte Esterase Negative (Negative) 03/18/17 21:50 Vancomycin Trough 17.8 ug/mL 03/21/17 07:03 Blood Type O Negative 03/18/17 17:47 Blood Type Recheck No 03/18/17 17:47 Antibody Screen NEGATIVE 03/18/17 17:47 Crossmatch See Detail 03/18/17 17:47 Transfuse Platelets 03/21/2017 03/21/17 12:17 Spec Expiration Date 03/21/2017 - 3320 03/18/17 17:47 Microbiology 03/20/17 12:22 Abdomen Gram Stain - Preliminary 03/20/17 12:22 Abdomen Wound Culture - Preliminary Presumptive MRSA Group D Enterococcus 03/21/17 11:35 Groin Gram Stain - Preliminary 03/21/17 11:35 Groin Wound Culture - Preliminary 03/18/17 21:10 Blood Blood Culture - Preliminary No Growth after 48 hours 03/18/17 21:50 Urine,Voided Urine Culture - Final Assessment and Plan (1) Febrile neutropenia Narrative/Plan: 76-year-old male presents the emergency center with evidence of feeling quite poorly. Having increasing difficulties with swallowing due to significant pain. Has evidence of some radiation esophagitis as well as mucositis at this time. Has had some response to Dilaudid and cool solution. These will continue. Oncology is following. Radiation oncology also following. Emollient can be applied to the irritation to the skin For the febrile neutropenia antibiotic therapy with cefepime and vancomycin is being utilized because of the extensive mucositis vancomycin is indicated. Cultures are in process Supportive care Fluid resuscitation is occurring Patient has multiple small skin lesions likely related to the current chemotherapy. They are not necrotic and do not appear to be ecthyma gangrenosum at this time, more blisterlike. Given her irritation symptoms and can be applied to these areas and when improved the hydrocolloid can be utilized. Cultures are processing being monitored. Given the significant mucositis in fever the patient is at risk of underlying fungal infection and with this micafungin is utilized. Albumin is low and patient will need significant protein supplementation as improvement in eating occurs Not having hypotension at this time. Is less pruritus and discomfort than yesterday. Cultures in process continue current antibiotic therapy given the sepsis and febrile neutropenia.reliminary wound culture shows evidence of probable MRSA and enterococcous, antimicrobial therapy will be altered as needed.. Status: Acute (2) Small cell lung cancer Status: Acute (3) Atrial flutter with rapid ventricular response Status: Acute (4) Anemia Status: Acute
[2017-03-22] MEDS: METOPROLOL TARTRATE 5 MG/5 ML VIAL IVP SCH ×4 (00:18→17:47)
[2017-03-22] MEDS: SODIUM CHLORIDE 0.9% 1,000 ML IV SCH ×2 (00:19→11:37)
[2017-03-22] MEDS: VANCOMYCIN 1,500 MG in SODIUM CHLORIDE 0.9% 250 ML IVPB SCH ×2 (00:19→16:13)
[2017-03-22] MEDS: CEFEPIME 2 GM in SODIUM CHLORIDE 0.9% 50 ML IVPB SCH ×3 (00:19→16:12)
[2017-03-22] MEDS: HYDROmorphone 1 MG/ML 1 ML SYRINGE IVP PRN ×8 (01:04→22:35)
[2017-03-22] MEDS: HALOPERIDOL LACTATE 5 MG/ML 1 ML VIAL IVP PRN ×2 (02:39→07:06)
[2017-03-22] MEDS: LORazepam 2 MG/ML SYRINGE IV PRN ×2 (02:39→11:04)
[2017-03-22 06:11] LABS: CH 32.9; CHCM 33.3; HCT 23.2 % (39.0-53.0); HGB 7.9 gm/dL (13.0-17.5); MCH 33.8 pg (25.0-35.0); MCV 99.5 fL (80.0-100.0); Macrocytosis Slight; Mean Platelet Volume 8.4; RBC 2.33 m/uL (4.30-5.90); WBC (Perox) 0.41
[2017-03-22 06:17] LABS: WBC 0.4 k/uL (3.8-10.6)
[2017-03-22 06:30] LABS: Anion Gap 11 mmol/L; Blood Urea Nitrogen 28 mg/dL (9-20); Calcium 8.9 mg/dL (8.4-10.2); Carbon Dioxide 17 mmol/L (22-30); Chloride 119 mmol/L (98-107); Glucose 84 mg/dL (74-99); Non-African American GFR(MDRD) >60 (>60 ml/min/1.73 sqM); Phosphorous 2.4 mg/dL (2.5-4.5); Potassium 4.2 mmol/L (3.5-5.1); Sodium 147 mmol/L (137-145)
[2017-03-22 06:49] LABS: Add Differential Manual Differential
[2017-03-22 06:50] LABS: Manual Review Performed
[2017-03-22] MEDS: PANTOPRAZOLE 40 MG/10 ML VIAL IV SCH ×2 (08:34→16:13)
[2017-03-22] MEDS: ZINC OXIDE 20% OINT 28.4 GM TUBE TOPICAL SCH ×3 (08:39→22:37)
[2017-03-22] MEDS: HYDROCORTISONE 1% CREAM 454 GM JAR TOPICAL SCH ×2 (08:40→20:46)
[2017-03-22] MEDS: IPRATROPIUM-ALBUTEROL 3 ML NEB INHALATION SCH ×4 (09:12→20:06)
[2017-03-22] MEDS: SYMBICORT 160-4.5 MCG INHALER INHALATION SCH (09:13)
[2017-03-22] MEDS: PROPOFOL 500 MG in EMPTY BAG 1 BAG IV SCH ×6 (11:36→23:16)
--- NOTE | 2017-03-22 11:56 | P.PN ---
Subjective I AM ALSO COVERING FOR DR. JONES FOR THIS EVALUATION. 76-year-old male patient who is quite ill and he comes into the hospital because of various medical problems and chronic shortness of breath and difficulty in swallowing and chest congestion and generalized weakness and fatigue. The patient also had limited changes in his mentation. Note that the patient has history of coronary artery disease and he has undergone previous carotid bypass surgery 2014. 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 He has also peripheral vascular disease and has undergone stenting of the left lower extremity. He was recently diagnosed having small cell lung cancer. Diagnosed was established by bronchoscopy as the patient was found to have endobronchial tumor and based on the limited staging of the small cell lung cancer the patient was referred to radiation oncology and hematology oncology. A patient was started on radiation therapy and he was given a total of 10 sessions of radiation therapy and he has another 10 sessions to go. He was also given the first session of systemic chemotherapy with a combination of carboplatinum and OTHER [employer] SU[employer] WORKER-16. Note that the patient was doing well to around a few days ago and he started developing worsening in his mucositis and swallowing. His chest started becoming more congested. He was unable to swallow. He became progressively more weak and dehydrated. The family and himself denied any episodes of aspiration. He denied having any nausea vomiting or diarrhea. He reported burning sensation in his upper chest. At the same time he has noted some purulent nodules arising in his groin and suprapubic area. These are small nodular lesions that are measuring 1-2 cm in size which have some central purulent material draining. No dysuria. No frequency. No urgency. He still producing urine output. In the burst department the patient was found to be also in atrial fibrillation with rapid ventricular response and he was started on IV heparin and IV Cardizem. Rate is still tachycardic in the 120 range. At the same time the patient was found to be neutropenic and pancytopenic. His white cell count was at 0.2. He is single was 8.4. His platelet count at 48, 000. His creatinine was at 1.2. The patient was started on IV fluids. He was given IV fluid boluses and currently is on any normal saline infusion rate of 1 25 mL an hour. The patient is also on a combination of cefepime and vancomycin. No fever at this point. No headache. No neck stiffness. On 03/20/2017 I'm seeing this patient in follow-up in the intensive care unit. He is doing slightly better. Still unable to swallow and still having burning sensation in his throat and upper chest related to severe mucositis. He is afebrile. He is hemodynamically stable. He is on broad-spectrum antibiotics. All of the cultures of been negative. Still pancytopenic and the white cell count today is at 0.3 with a hemoglobin of 8.7 and platelet count of 23,000. He is still in atrial fibrillation with rate being controlled. He is on no anti -coagulation based on his underlying thrombocytopenia. He has a component of non-anion gap metabolic acidosis. His bicarb level is at 17. CAT scan of the brain was done today and the patient had shown mild diffuse cerebral atrophy with mild to moderate chronic small vessel ischemic changes. No other enhancing lesions. Family is at the bedside. The patient is lethargic and still profoundly weak. On 03/21/2017 I'm seeing this patient in follow-up in the intensive care units. Very much delirious and overnight very much agitated for which she was given Haldol and Ativan. Bit more comfortable and calm her today this morning. Family is at the bedside. Remains profoundly pancytopenic without any major recovery in his hematologic profile. Afebrile and hemodynamically stable covered with broad-spectrum antibiotics. All of the cultures have not indicated any specific microbial growth for now. ID is on the case. The pustules and the groin and suprapubic area remains unchanged. There are several of them at least 6 and only a few had some purulent center which seems to be much more dried up on today's evaluation. No bleeding. Platelet counts have dropped down to 13,000. Vancomycin trough is at 17.8. On 03/22/2017 I'm seeing this patient in follow-up. The patient is quite lethargic. He was agitated throughout the night. He had required several doses of Haldol and Ativan. He is per much sedated at this point and seems to be more comfortable. I was told that overnight he was very agitated and difficult to control. He is on 2 point restraints at this point. Hematologically, the patient is still pancytopenic and he still being treated for neutropenic fevers. He has a white cell count of 0.4 with a hemoglobin of 7.7 and platelet count of 17,000. He is afebrile. The cultures obtained from the groin wounds/pustules turnstile collector to be MRSA and there may be also group D enterococcus. Blood cultures of been negative. Urine culture been negative. The patient is on no pressors. The patient is still on a combination of cefepime and vancomycin and micafungin regarding his neutropenic sepsis. ID is on the case. Objective - Vital Signs Vital signs: Vital Signs Temp 98.3 F 03/22/17 04:00 Pulse 132 H 03/22/17 09:27 Resp 28 H 03/22/17 08:00 BP 170/60 03/22/17 08:00 Pulse Ox 100 03/22/17 07:00 Intake & Output 03/21/17 03/22/17 03/22/17 18:59 06:59 18:59 Intake Total 1300 1852 75 Output Total 1020 50 Balance 280 1802 75 Weight 100.9 kg 95.1 kg Intake: Intake, IV Titration 1300 1250 75 Amount Cefepime 2 gm In Sodium 150 100 Chloride 0.9% 50 ml @ 100 mls/hr IVPB Q8H ERNESTO Rx#: [id number] Sodium Chloride 0.9% 1, 900 900 75 000 ml @ 75 mls/hr IV . [id number] ERNESTO Rx#:[id number] Vancomycin 1,500 mg In 250 250 Sodium Chloride 0.9% 250 ml @ 125 mls/hr IVPB Q16H ERNESTO Rx#:[id number] Blood Product 602 Platelet Pheresis Acda1 301 Unit [id number] Output: Urine 1020 50 Other: Voiding Method Indwelling Catheter Incontinent # Voids 1 - Exam The patient is an ill-looking 76-year-old male patient who is an some degree of respiratory distress and discomfort and pain in his buttocks area.the patient is on and off moaning and thrashing in bed more agitated earlier and seems to be quite a bit sedated at this point. Neurologic exam is nonfocal and the patient is moving all 4 extremities. Head exam was generally normal. There was no scleral icterus or corneal arcus. Mucous membranes were moist. Mucous membranes are dry. There is no oropharyngeal thrush seen. No open ulceration in the mucous membranes. Lung sounds are diminished and there is some scattered rhonchi and crackles heard throughout the lung his bilaterally. Heart sounds are irregular, possible sinus stool, no cervical murmurs appreciated.Abdominal exam revealed normal bowel sounds. The abdomen was soft, non-tender, and without masses, organomegaly, or appreciable enlargement of the abdominal aorta. This atrophic area shows no other pustular lesions several of them the largest measuring 2 cm in size with central purulent material. Extremities show no edema no cyanosis or clubbing at the pulses are diminished. Neurologically quite lethargic yet awake and moving all 4 extremities without any limitation. - Labs CBC & Chem 7: 03/22/17 05:39 03/22/17 05:39 Labs: Abnormal Lab Results - Last 24 Hours (Table) 03/18/17 03/22/17 03/22/17 Range/Units 17:47 05:39 05:39 WBC 0.4 L* (3.8-10.6) k/uL RBC 2.33 L (4.30-5.90) m/uL Hgb 7.9 L (13.0-17.5) gm/dL Hct 23.2 L (39.0-53.0) % Plt Count 17 L* (150-450) k/uL Sodium 147 H (137-145) mmol/L Chloride 119 H (98-107) mmol/L Carbon Dioxide 17 L (22-30) mmol/L BUN 28 H (9-20) mg/dL Phosphorus 2.4 L (2.5-4.5) mg/dL Crossmatch See Detail Microbiology - Last 24 Hours (Table) 03/21/17 11:35 Gram Stain - Preliminary Groin Wound Culture - Preliminary Presumptive MRSA 03/18/17 21:10 Blood Culture - Preliminary Blood No Growth after 72 hours 03/20/17 12:22 Gram Stain - Preliminary Abdomen Wound Culture - Preliminary Presumptive MRSA Group D Enterococcus Assessment and Plan Plan: Assessment 1 neutropenic sepsis. The patient is afebrile however he has very source of infection at these to be considered including the lungs, esophagitis and no other pustular lesions in the suprapubic and inguinal area which could be potentially staphylococcal or fungal. The wound cultures turnstile collector to be positive for enterococcus and MRSA. The patient remains on a combination of cefepime, vancomycin and micafungin. 2 limited stage small cell lung cancer status post chemoradiation therapy. The patient has received one session of systemic chemotherapy with carboplatinum and OTHER [employer] SU[employer] WORKER-16 and 10 sessions of radiation therapy 3 esophagitis/mucositis secondary to radiation therapy with secondary difficulty in swallowing. Rule out candidal esophagitis 4 pancytopenia secondary to chemotherapy. . The patient remains profoundly neutropenic with a white cell count of 0.4. The patient is receiving Zarxio 5 new-onset atrial fibrillation with rapid ventricular response, currently off Cardizem 6 CHF with an ejection fraction of 35% 7 coronary artery disease with multivessel involvement and the patient is status post carotid bypass surgery 8 history of AICD placement 9 dysphagia, currently nothing by mouth 10 acute kidney injury, improved in the creatinine normalized 11 peripheral vascular disease with previous vascular intervention of the left lower extremity 12 prostate cancer status post prostatectomy 13 severe peripheral neuropathy 14 depression/anxiety 15 coronary artery bypass surgery, history of 16 dehydration secondary to above with a component of non-anion gap metabolic acidosis Plan I had a lengthy discussion with the patient's daughters. Unfortunately his condition is not improving. He continues to be that he use and agitated. Has required a combination of Ativan and Haldol to control his agitation however this has made him quite lethargic and obtunded and I'm concerned that the patient may not be able to protect his airways. At the same time, he is not meeting his nutritional requirements and his neutropenic sepsis has not shown any signs of recovery. The wound cultures are showing MRSA and enterococcus. My plan is to intubate this patient this point to protect his airway. Meanwhile the patient will be sedated and placed on Diprivan and the Ativan although will be backed off for the time being. A repeat CAT scan of the brain will be done. We'll also scan his abdomen and pelvis to make sure there is no deep-seated wounds or a abscess in the abdominal pelvic area. Continue same antibiotic coverage. Insert an OG tube and start the patient on tube feeds. Monitored hemodynamics. Insert a Chavez catheter. Obtain blood gas postintubation and the sediment changes. Obtain postintubation chest x-ray. Condition is critical and this has been expected to the patient's family at multiple occasions. We'll continue to follow make further recommendations based on his progress. There is a critically care evaluation. More than 30 minutes evaluation. Excluding time to do any procedures. Time with Patient: Greater than 30
--- NOTE | 2017-03-22 12:14 | XR ---
EXAMINATION TYPE: XR chest 1V portable DATE OF EXAM: 03/22/2017 12:04 PM Comparison: 03/18/2017 Clinical History: 76-year-old male status post intubation Findings: NG tube courses below the diaphragm. ET tube is satisfactory. Left anterior chest wall AICD generator with right ventricular lead. Heart is mildly enlarged. Diffuse interstitial and vascular prominence with some patchy upper lung op acities. No significant pleural effusion seen on this lordotic projection. Impression: 1. Satisfactory ET tube. 2. Correlate for developing CHF and pulmonary vascular congestion.
[2017-03-22 12:35] LABS: ABG Base Excess -10.2 mmol/L; ABG HCO3 15 mmol/L (21-25); ABG Oxygen Saturation 99.8 % (94-97); ABG PCO2 31 mmHg (35-45); ABG PO2 253 mmHg (83-108); ABG TCO2 16 mmol/L (19-24)
[2017-03-22] MEDS: CHOLECALCIFEROL 1,000 UNIT TAB PO SCH (14:48)
[2017-03-22] MEDS: FERROUS SULFATE 325 MG TAB PO SCH (14:48)
[2017-03-22] MEDS: DOCUSATE ORAL SOLN 100 MG/10 ML CUP PO SCH ×3 (14:48→22:36)
[2017-03-22] MEDS: ATORVASTATIN 80 MG TAB PO SCH (14:48)
[2017-03-22] MEDS: SPIRONOLACTONE 25 MG TAB PO SCH (14:48)
[2017-03-22] MEDS: GABAPENTIN 300 MG CAP PO SCH ×3 (14:49→22:36)
[2017-03-22] MEDS: PYRIDOXINE 50 MG TAB PO SCH (14:49)
[2017-03-22] MEDS: MAG HYDROX/AL HYDROX/SIMETH 30 ML, LIDOCAINE VISCOUS 30 ML, diphenhydrAMINE ELIXIR 75 M... PO SCH ×12 (14:49→23:15)
[2017-03-22] MEDS: OXYBUTYNIN CHLORIDE 5 MG TAB PO SCH ×3 (14:49→22:36)
[2017-03-22] MEDS: VITAMIN E (DL,TOCOPHERYL ACET) 400 UNIT CAP PO SCH (14:49)
[2017-03-22] MEDS: MULTIVITAMINS, THERA 1 EACH TAB PO SCH (14:49)
--- NOTE | 2017-03-22 15:16 | CT ---
EXAMINATION TYPE: CT right femur without con, CT left femur without con DATE OF EXAM: 03/22/2017 2:46 PM COMPARISON: PET CT 03/01/2017 HISTORY: 76-year-old male history of lung cancer. Multiple boils on legs and groin. TECHNIQUE: Contiguous axial scanning of the bilateral femurs without IV contrast. Coronal and sagitta l reconstructions performed. CT DLP: 917.3 (Bilateral ext pelvis to knee) (accession [id number]), 917.3 (Bilat ext pelvis through kn ee) (accession [id number]) mGycm Automated exposure control for dose reduction was used. FINDINGS: Chavez catheter is present decompressing the bladder. Postsurgical changes of prior prostatectomy and lymph node dissection. On the right, some nonenlarged inguinal lymph nodes are present measuring up to 9 mm. On the left, a mildly enlarged 1.1 cm left external iliac chain lymph node is stable from the prior P ET scan. Additional femoral chain lymph node measures up to 1.2 cm, also unchanged from the PET scan. There is mild stranding of the subcutaneous fat in the inguinal regions. An area of focal hazy thicke christopher of the overlying skin on the right, axial image 62. Degenerative changes at both hips and relatively severe degenerative changes at the right knee. Statu s post left total knee arthroplasty. The osseous structures appear within normal limits. In the soft tissues, no abnormal fluid collection is identified. A vascular stent is present at the lower left femoral artery. IMPRESSION: 1. A MILDLY ENLARGED LEFT EXTERNAL ILIAC CHAIN LYMPH NODE WELL BILATERAL PROMINENT BUT NONENLAR GED INGUINAL AND FEMORAL CHAIN LYMPH NODES MEASURING UP TO 1.2 CM ARE UNCHANGED FROM PATIENT'S 017 PET/CT. NO EVIDENCE FOR ABSCESS. 2. SOME FOCAL INFLAMMATORY CHANGE ALONG THE ANTERIOR RIGHT GROIN AT AND JUST DEEP TO THE SKIN COULD R EPRESENT AN AREA OF CELLULITIS/INFECTION.
[2017-03-22] MEDS: FILGRASTIM-SNDZ 480 MCG/0.8 ML SYRINGE SQ SCH (16:12)
--- NOTE | 2017-03-22 16:25 | P.PN ---
Subjective Principal diagnosis: Febrile neutropenia 76-year-old male with a known history of small cell lung carcinoma who is been undergoing chemoradiation. Presents emergency center with increasing shortness of breath increasing weakness, increasing fatigue and increasing difficulty with swallowing. He was evaluated by bronchoscopy and endobronchial tumor was noted. She related it was a limited stage small cell lung carcinoma. In counseling and started radiation therapy with concomitant carboplatinum and HALL [employer]INATOR-16. 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 Decreasing oral intake and increasing weakness. He now presents with evidence of fever, neutropenia and significant dehydration. He is being transferred from the emergency center to the intensive care unit given his atrial fibrillation and hypotension. He has a long-standing history of coronary artery disease atrial fibrillation as well as BPH chronic renal disease and peripheral vascular disease. Is related that he does have a low ejection fraction of 30-35%. His atrial fibrillation is chronic but his rate was quite elevated earlier. With resuscitation and diltiazem drip he has improved. Was having severe pain with Dilaudid and viscous lidocaine he has had some improvement of his status. Patient's respiratory status continued to decline. Required intubation this morning. He is now quite calm that he has been sedated. Objective - Vital Signs Vital signs: Vital Signs Temp 97.0 F L 03/22/17 12:00 Pulse 133 H 03/22/17 13:00 Resp 19 03/22/17 13:00 BP 97/58 03/22/17 13:00 Pulse Ox 100 03/22/17 13:00 Intake & Output 03/21/17 03/22/17 03/22/17 18:59 06:59 18:59 Intake Total 1300 1852 1607.733 Output Total 1020 50 0 Balance 280 1802 1607.733 Weight 100.9 kg 95.1 kg 95.1 kg Intake: Intake, IV Titration 1300 1250 527.733 Amount Cefepime 2 gm In Sodium 150 100 50 Chloride 0.9% 50 ml @ 100 mls/hr IVPB Q8H [facility] Rx#: [id number] Propofol 500 mg In Empty 102.733 Bag 1 bag @ Titrate IV . Q0M [facility] Rx#:[id number] Sodium Chloride 0.9% 1, 900 900 375 000 ml @ 75 mls/hr IV . [id number] [facility] Rx#:[id number] Vancomycin 1,500 mg In 250 250 Sodium Chloride 0.9% 250 ml @ 125 mls/hr IVPB Q16H [facility] Rx#:[id number] Tube Feeding 1080 Blood Product 602 Platelet Pheresis Acda1 301 Unit [id number] Output: Urine 1020 50 0 Other: Voiding Method Indwelling Catheter Incontinent # Voids 1 1 # Bowel Movements 0 - Exam 76-year-old male who appears to be acutely ill. He is now intubated. HEENT: Anicteric conjunctiva are pink and moist nasal mucosa grossly intact without significant lesions, no evidence of bleeding of the oral cavity around the endotracheal tube. Neck: The neck is supple without significant lymphadenopathy or thyromegaly. Lungs: Symmetric air entry is noted. Basilar crackles are noted. Expiratory wheezes are scattered no bronchial sounds Heart: Irregularly irregular rate about 120. Soft S4 no murmur click or rub is noted Abdomen: Positive bowel sounds soft and nontender without palpable masses or organomegaly. There was no guarding or rebound. Extremities: Extremities have some generalized edema.. Neuro: Sedated Skin on the interior aspect of both thighs, as well as anterior aspect of both thighs and lower abdominal wall or multiple small skin lesions that have developed since he's been on chemotherapy. There is some induration around these sites. There is no expressible purulence. Some evidence of some mild erythema to the anterior chest wall as well to his back from initiation of the recent radiation therapy. - Labs CBC & Chem 7: 03/22/17 05:39 03/22/17 05:39 Labs: Abnormal Lab Results - Last 24 Hours (Table) 03/18/17 03/22/17 03/22/17 Range/Units 17:47 05:39 05:39 WBC 0.4 L* (3.8-10.6) k/uL RBC 2.33 L (4.30-5.90) m/uL Hgb 7.9 L (13.0-17.5) gm/dL Hct 23.2 L (39.0-53.0) % Plt Count 17 L* (150-450) k/uL ABG pH (7.35-7.45) ABG pCO2 (35-45) mmHg ABG pO2 (83-108) mmHg ABG HCO3 (21-25) mmol/L ABG Total CO2 (19-24) mmol/L ABG O2 Saturation (94-97) % Sodium 147 H (137-145) mmol/L Chloride 119 H (98-107) mmol/L Carbon Dioxide 17 L (22-30) mmol/L BUN 28 H (9-20) mg/dL Phosphorus 2.4 L (2.5-4.5) mg/dL Crossmatch See Detail 03/22/17 Range/Units 12:28 WBC (3.8-10.6) k/uL RBC (4.30-5.90) m/uL Hgb (13.0-17.5) gm/dL Hct (39.0-53.0) % Plt Count (150-450) k/uL ABG pH 7.30 L (7.35-7.45) ABG pCO2 31 L (35-45) mmHg ABG pO2 253 H (83-108) mmHg ABG HCO3 15 L (21-25) mmol/L ABG Total CO2 16 L (19-24) mmol/L ABG O2 Saturation 99.8 H (94-97) % Sodium (137-145) mmol/L Chloride (98-107) mmol/L Carbon Dioxide (22-30) mmol/L BUN (9-20) mg/dL Phosphorus (2.5-4.5) mg/dL Crossmatch Microbiology - Last 24 Hours (Table) 03/20/17 12:22 Gram Stain - Final Abdomen Wound Culture - Final Methicillin resist S. aureus Enterococcus faecalis 03/21/17 11:35 Gram Stain - Preliminary Groin Wound Culture - Preliminary Presumptive MRSA 03/18/17 21:10 Blood Culture - Preliminary Blood No Growth after 72 hours Laboratory Results WBC 0.4 k/uL (3.8-10.6) L* 03/22/17 05:39 RBC 2.33 m/uL (4.30-5.90) L 03/22/17 05:39 Hgb 7.9 gm/dL (13.0-17.5) L 03/22/17 05:39 Hct 23.2 % (39.0-53.0) L 03/22/17 05:39 MCV 99.5 fL (80.0-100.0) 03/22/17 05:39 MCH 33.8 pg (25.0-35.0) 03/22/17 05:39 MCHC 34.0 g/dL (31.0-37.0) 03/22/17 05:39 RDW 15.0 % (11.5-15.5) 03/22/17 05:39 Plt Count 17 k/uL (150-450) L* 03/22/17 05:39 Neutrophils % 27 % 03/18/17 21:10 Lymphocytes % 58 % 03/18/17 21:10 Monocytes % 6 % 03/18/17 21:10 Eosinophils % 3 % 03/18/17 21:10 Basophils % 3 % 03/18/17 21:10 Neutrophils # 0.1 k/uL (1.3-7.7) L 03/18/17 21:10 Lymphocytes # 0.1 k/uL (1.0-4.8) L 03/18/17 21:10 Monocytes # 0.0 k/uL (0-1.0) 03/18/17 21:10 Eosinophils # 0.0 k/uL (0-0.7) 03/18/17 21:10 Basophils # 0.0 k/uL (0-0.2) 03/18/17 21:10 Differential Comment 03/22/17 05:39 Manual Slide Review Performed 03/22/17 05:39 Hypochromasia Slight 03/21/17 07:03 Poikilocytosis (manual Present 03/19/17 03:12 Anisocytosis (manual) Present 03/19/17 03:12 Macrocytosis Slight 03/22/17 05:39 Tear Drop Cells Present 03/21/17 07:03 Ovalocytes Present 03/21/17 07:03 PT 13.2 sec (9.0-12.0) H 03/20/17 04:26 INR 1.3 (<1.1) 03/20/17 04:26 APTT 24.3 sec (22.0-30.0) 03/20/17 04:26 Sample Site LRA 03/22/17 12:28 ABG pH 7.30 (7.35-7.45) L 03/22/17 12:28 ABG pCO2 31 mmHg (35-45) L 03/22/17 12:28 ABG pO2 253 mmHg (83-108) H 03/22/17 12:28 ABG HCO3 15 mmol/L (21-25) L 03/22/17 12:28 ABG Total CO2 16 mmol/L (19-24) L 03/22/17 12:28 ABG O2 Saturation 99.8 % (94-97) H 03/22/17 12:28 ABG Base Excess -10.2 mmol/L 03/22/17 12:28 FiO2 60 % 03/22/17 12:28 Sodium 147 mmol/L (137-145) H 03/22/17 05:39 Potassium 4.2 mmol/L (3.5-5.1) 03/22/17 05:39 Chloride 119 mmol/L (98-107) H 03/22/17 05:39 Carbon Dioxide 17 mmol/L (22-30) L 03/22/17 05:39 Anion Gap 11 mmol/L 03/22/17 05:39 BUN 28 mg/dL (9-20) H 03/22/17 05:39 Creatinine 1.10 mg/dL (0.66-1.25) 03/22/17 05:39 Est GFR (MDRD) Af Amer >60 (>60 ml/min/1.73 sqM) 03/22/17 05:39 Est GFR (MDRD) Non-Af >60 (>60 ml/min/1.73 sqM) 03/22/17 05:39 Glucose 84 mg/dL (74-99) 03/22/17 05:39 POC Glucose (mg/dL) 109 mg/dL (75-99) H 03/20/17 12:15 POC Glu Veneer Manufacturer ID Kasey Reid 03/20/17 12:15 Plasma Lactic Acid Arnaldo 1.3 mmol/L (0.7-2.0) 03/18/17 21:10 Calcium 8.9 mg/dL (8.4-10.2) 03/22/17 05:39 Phosphorus 2.4 mg/dL (2.5-4.5) L 03/22/17 05:39 Magnesium 2.0 mg/dL (1.6-2.3) 03/22/17 05:39 Total Bilirubin 1.0 mg/dL (0.2-1.3) 03/19/17 03:12 AST 40 U/L (17-59) 03/19/17 03:12 ALT 50 U/L (21-72) 03/19/17 03:12 Alkaline Phosphatase 147 U/L (38-126) H 03/19/17 03:12 Troponin I 0.013 ng/mL (0.000-0.034) 03/19/17 03:12 Total Protein 5.9 g/dL (6.3-8.2) L 03/19/17 03:12 Albumin 3.0 g/dL (3.5-5.0) L 03/19/17 03:12 Urine Color Yellow 03/18/17 21:50 Urine Appearance Clear (Clear) 03/18/17 21:50 Urine pH 6.0 (5.0-8.0) 03/18/17 21:50 Ur Specific [place] 1.029 (1.001-1.035) 03/18/17 21:50 Urine Protein Trace (Negative) H 03/18/17 21:50 Urine Glucose (UA) Negative (Negative) 03/18/17 21:50 Urine Ketones Negative (Negative) 03/18/17 21:50 Urine Blood Negative (Negative) 03/18/17 21:50 Urine Nitrite Negative (Negative) 03/18/17 21:50 Urine Bilirubin Negative (Negative) 03/18/17 21:50 Urine Urobilinogen <2.0 mg/dL (<2.0) 03/18/17 21:50 Ur Leukocyte Esterase Negative (Negative) 03/18/17 21:50 Vancomycin Trough 17.8 ug/mL 03/21/17 07:03 Blood Type O Negative 03/18/17 17:47 Blood Type Recheck No 03/18/17 17:47 Antibody Screen NEGATIVE 03/18/17 17:47 Crossmatch See Detail 03/18/17 17:47 Transfuse Platelets 03/21/2017 03/21/17 12:17 Spec Expiration Date 03/21/2017 - 2310 03/18/17 17:47 Microbiology 03/20/17 12:22 Abdomen Gram Stain - Final 03/20/17 12:22 Abdomen Wound Culture - Final Methicillin resist S. aureus Enterococcus faecalis 03/21/17 11:35 Groin Gram Stain - Preliminary 03/21/17 11:35 Groin Wound Culture - Preliminary Presumptive MRSA 03/18/17 21:10 Blood Blood Culture - Preliminary No Growth after 72 hours 05/16/17 21:50 Urine,Voided Urine Culture - Final Assessment and Plan (1) Febrile neutropenia Narrative/Plan: 76-year-old male presents the emergency center with evidence of feeling quite poorly. Having increasing difficulties with swallowing due to significant pain. Has evidence of some radiation esophagitis as well as mucositis at this time. Has had some response to Dilaudid and cool solution. These will continue. Oncology is following. Radiation oncology also following. Emollient can be applied to the irritation to the skin For the febrile neutropenia antibiotic therapy with cefepime and vancomycin is being utilized because of the extensive mucositis vancomycin is indicated. Cultures are in process Supportive care Fluid resuscitation is occurring Patient has multiple small skin lesions likely related to the current chemotherapy. They are not necrotic and do not appear to be ecthyma gangrenosum at this time, more blisterlike. Given her irritation symptoms and can be applied to these areas and when improved the hydrocolloid can be utilized. Cultures are processing being monitored. Given the significant mucositis in fever the patient is at risk of underlying fungal infection and with this micafungin is utilized. Albumin is low attritional supplementation and process Patient has not been intubated and is being sedated which is a lot of significant improvement of his discomfort. There is evidence of the multiple lesions to his skin. With his low white count he is not having an aggressive immune response. MRSA slated. He is receiving appropriate antibiotic therapy. No evidence of any grossly necrotic material. The left thigh ulcer has a small area of some eschar. Does not have the appearance of ecthyma gangrenosum at this time. Status: Acute (2) Small cell lung cancer Status: Acute (3) Atrial flutter with rapid ventricular response Status: Acute (4) Anemia Status: Acute
--- NOTE | 2017-03-22 16:55 | P.PN ---
Subjective Pt continues to be agitated and obtunded, more so than 03/21. No obvious bleeding noted. He has developed ulcerated lesions on his lower abdomen and medial thigh area Objective - Vital Signs Vital signs: Vital Signs Temp 97.0 F L 03/22/17 12:00 Pulse 133 H 03/22/17 13:00 Resp 19 03/22/17 13:00 BP 97/58 03/22/17 13:00 Pulse Ox 100 03/22/17 13:00 Intake & Output 03/21/17 03/22/17 03/22/17 18:59 06:59 18:59 Intake Total 1300 1852 1607.733 Output Total 1020 50 0 Balance 280 1802 1607.733 Weight 100.9 kg 95.1 kg 95.1 kg Intake: Intake, IV Titration 1300 1250 527.733 Amount Cefepime 2 gm In Sodium 150 100 50 Chloride 0.9% 50 ml @ 100 mls/hr IVPB Q8H [facility] Rx#: [id number] Propofol 500 mg In Empty 102.733 Bag 1 bag @ Titrate IV . Q0M [facility] Rx#:[id number] Sodium Chloride 0.9% 1, 900 900 375 000 ml @ 75 mls/hr IV . [id number] [facility] Rx#:[id number] Vancomycin 1,500 mg In 250 250 Sodium Chloride 0.9% 250 ml @ 125 mls/hr IVPB Q16H [facility] Rx#:[id number] Tube Feeding 1080 Blood Product 602 Platelet Pheresis Acda1 301 Unit [id number] Output: Urine 1020 50 0 Other: Voiding Method Indwelling Catheter Incontinent # Voids 1 1 # Bowel Movements 0 - Constitutional General appearance: Present: mild distress - Respiratory Respiratory: bilateral: CTA - Cardiovascular Rhythm: regular Heart sounds: normal: S1, S2 - Gastrointestinal General gastrointestinal: Present: normal bowel sounds, soft - Integumentary Integumentary: Present: ulcer (blackish base, scattered , lower abd, medial thigh area b/l, surrounding erythema. Tender to palpation) - Musculoskeletal Musculoskeletal: Present: generalized weakness, strength equal bilaterally - Psychiatric Psychiatric Comment(s): Obtunded , but agitated, in restraints - Labs CBC & Chem 7: 03/22/17 05:39 03/22/17 05:39 Labs: Abnormal Lab Results - Last 24 Hours (Table) 03/18/17 03/22/17 03/22/17 Range/Units 17:47 05:39 05:39 WBC 0.4 L* (3.8-10.6) k/uL RBC 2.33 L (4.30-5.90) m/uL Hgb 7.9 L (13.0-17.5) gm/dL Hct 23.2 L (39.0-53.0) % Plt Count 17 L* (150-450) k/uL ABG pH (7.35-7.45) ABG pCO2 (35-45) mmHg ABG pO2 (83-108) mmHg ABG HCO3 (21-25) mmol/L ABG Total CO2 (19-24) mmol/L ABG O2 Saturation (94-97) % Sodium 147 H (137-145) mmol/L Chloride 119 H (98-107) mmol/L Carbon Dioxide 17 L (22-30) mmol/L BUN 28 H (9-20) mg/dL Phosphorus 2.4 L (2.5-4.5) mg/dL Crossmatch See Detail 03/22/17 Range/Units 12:28 WBC (3.8-10.6) k/uL RBC (4.30-5.90) m/uL Hgb (13.0-17.5) gm/dL Hct (39.0-53.0) % Plt Count (150-450) k/uL ABG pH 7.30 L (7.35-7.45) ABG pCO2 31 L (35-45) mmHg ABG pO2 253 H (83-108) mmHg ABG HCO3 15 L (21-25) mmol/L ABG Total CO2 16 L (19-24) mmol/L ABG O2 Saturation 99.8 H (94-97) % Sodium (137-145) mmol/L Chloride (98-107) mmol/L Carbon Dioxide (22-30) mmol/L BUN (9-20) mg/dL Phosphorus (2.5-4.5) mg/dL Crossmatch Microbiology - Last 24 Hours (Table) 03/20/17 12:22 Gram Stain - Final Abdomen Wound Culture - Final Methicillin resist S. aureus Enterococcus faecalis 03/21/17 11:35 Gram Stain - Preliminary Groin Wound Culture - Preliminary Presumptive MRSA 03/18/17 21:10 Blood Culture - Preliminary Blood No Growth after 72 hours Assessment and Plan (1) Mental status change Narrative/Plan: Etiology is not clear at this time. CT head was negative for bleed, mass or CVA. Metabolic encephalopathy due to sepsis is a possibility. Others include " sundowning" or medication effect. The family confirmed that there is . Pt is on appropriate antibiotics Status: Acute (2) Severe sepsis with septic shock Narrative/Plan: Hemodynamics are improved. Fever pattern is not severe. The pt is more obtunded as noted. The culture from the skin ulcers was +ve for MRSA. Pt is on broad spectrum antibiotics with ID following, Case d/w them. CT of the LE will be ordered to r/o fasciitis. Continue filgrastim Status: Acute (3) Pancytopenia due to antineoplastic chemotherapy Narrative/Plan: Plt count are at 17. No evidence of bleeding with stable Hgb. Plt transfusion is not felt to be indicated Status: Acute
[2017-03-22] MEDS: MICAFUNGIN 100 MG in SODIUM CHLORIDE 0.9% 100 ML IVPB SCH (17:47)
--- NOTE | 2017-03-22 19:32 | PCN ---
DATE OF PROCEDURE: ENDOTRACHEAL INTUBATION Indication: Respiratory compromise. PREOPERATIVE DIAGNOSIS: Neutropenic sepsis. POSTOPERATIVE DIAGNOSIS: Neutropenic sepsis. A time-out was completed verifying correct patient, procedure, site, positioning, and implant(s) or special equipment if applicable. The patient was positioned appropriately and a #8 endotracheal tube was placed under direct laryngoscopy. I used a #4 Guerra blade. The tube was anchored at 22 cm at the teeth. Correct placement was confirmed by presence of bilateral breath sounds without air sounds in the abdomen on auscultation. An end-tidal CO2 monitor was also used to confirm tracheal placement of the ET tube. A chest x-ray was ordered to assess for pneumothorax and verify endotracheal tube placement. The patient tolerated the procedure well and there were no complications. No bedside complications.
[2017-03-22] MEDS: CHLORHEXIDINE GLUCONATE 15 ML CUP MUCOUS MEM SCH (20:45)
[2017-03-23] MEDS: HYDROmorphone 1 MG/ML 1 ML SYRINGE IVP PRN ×3 (00:35→07:54)
[2017-03-23] MEDS: CEFEPIME 2 GM in SODIUM CHLORIDE 0.9% 50 ML IVPB SCH ×4 (00:53→23:45)
[2017-03-23] MEDS: METOPROLOL TARTRATE 5 MG/5 ML VIAL IVP SCH ×5 (00:53→23:45)
[2017-03-23] MEDS: LORazepam 2 MG/ML SYRINGE IV PRN (01:19)
[2017-03-23] MEDS: PROPOFOL 500 MG in EMPTY BAG 1 BAG IV SCH ×11 (01:37→23:54)
[2017-03-23] MEDS: SODIUM CHLORIDE 0.9% 1,000 ML IV SCH ×2 (03:52→16:53)
[2017-03-23 05:53] LABS: ABG HCO3 14 mmol/L (21-25); ABG PCO2 25 mmHg (35-45); ABG PH 7.37 (7.35-7.45); ABG PO2 144 mmHg (83-108)
[2017-03-23 05:54] LABS: ABG TCO2 15 mmol/L (19-24)
[2017-03-23 06:07] LABS: Aty Lym Flag Marked; CH 32.6; CHCM 32.4; HCT 26.2 % (39.0-53.0); HDW 3.11; HGB 8.6 gm/dL (13.0-17.5); MCH 33.1 pg (25.0-35.0); MCHC 32.8 g/dL (31.0-37.0); MCV 101.2 fL (80.0-100.0); Macrocytosis Slight; Mean Platelet Volume 7.9; RBC 2.59 m/uL (4.30-5.90); WBC (Perox) 0.51
[2017-03-23 06:10] LABS: Blood Urea Nitrogen 27 mg/dL (9-20); Calcium 8.5 mg/dL (8.4-10.2); Carbon Dioxide 16 mmol/L (22-30); Glucose 93 mg/dL (74-99); Non-African American GFR(MDRD) >60 (>60 ml/min/1.73 sqM); Phosphorous 2.7 mg/dL (2.5-4.5); Potassium 3.8 mmol/L (3.5-5.1); Sodium 147 mmol/L (137-145)
[2017-03-23 06:17] LABS: WBC 0.5 k/uL (3.8-10.6)
[2017-03-23 06:27] LABS: Chloride 119 mmol/L (98-107)
[2017-03-23 06:29] LABS: Anion Gap 12 mmol/L
[2017-03-23] MEDS ORDERED: Potassium Replacement Protocol 1 EACH MISC MISCELLANE PRN (06:43)
[2017-03-23 07:01] LABS: Add Differential Manual Differential
[2017-03-23 07:07] LABS: Manual Review Performed
--- NOTE | 2017-03-23 07:22 | XR ---
EXAMINATION TYPE: XR chest 1V portable DATE OF EXAM: 03/23/2017 6:53 AM COMPARISON: 03/22/2017 INDICATION: Previous abnormal chest TECHNIQUE: Single frontal view of the chest is obtained. FINDINGS: The heart size is normal. The pulmonary vasculature is normal. There is silhouetting the left diaphragm. There is blunting the left costophrenic angle. Correlate fo r small left pleural effusion. Endotracheal tube is present with tip above the lea. Nasogastric tube transverses the thorax. Pace maker overlies left chest. IMPRESSION: 1. Suggestive of a developing small left pleural effusion.
[2017-03-23] MEDS: POTASSIUM CHLORIDE 10 MEQ in WATER FOR INJECTION 1 100ML.BAG IVPB SCH ×2 (07:36→09:09)
[2017-03-23] MEDS: VANCOMYCIN 1,500 MG in SODIUM CHLORIDE 0.9% 250 ML IVPB SCH (07:37)
[2017-03-23] MEDS: ATORVASTATIN 80 MG TAB PO SCH (07:56)
[2017-03-23] MEDS: PANTOPRAZOLE 40 MG/10 ML VIAL IV SCH ×2 (07:56→18:39)
[2017-03-23] MEDS: SPIRONOLACTONE 25 MG TAB PO SCH (07:56)
[2017-03-23] MEDS: GABAPENTIN 300 MG CAP PO SCH ×4 (07:57→21:01)
[2017-03-23] MEDS: FERROUS SULFATE 325 MG TAB PO SCH (07:57)
[2017-03-23] MEDS: CHLORHEXIDINE GLUCONATE 15 ML CUP MUCOUS MEM SCH ×2 (07:57→21:01)
[2017-03-23] MEDS: CHOLECALCIFEROL 1,000 UNIT TAB PO SCH (07:57)
[2017-03-23] MEDS: DOCUSATE ORAL SOLN 100 MG/10 ML CUP PO SCH ×3 (07:57→21:01)
[2017-03-23] MEDS: MULTIVITAMINS, THERA 1 EACH TAB PO SCH (07:58)
[2017-03-23] MEDS: HYDROCORTISONE 1% CREAM 454 GM JAR TOPICAL SCH ×2 (07:58→21:01)
[2017-03-23] MEDS: PYRIDOXINE 50 MG TAB PO SCH (07:58)
[2017-03-23] MEDS: OXYBUTYNIN CHLORIDE 5 MG TAB PO SCH ×4 (07:58→21:02)
[2017-03-23] MEDS: ZINC OXIDE 20% OINT 28.4 GM TUBE TOPICAL SCH ×3 (07:59→21:02)
[2017-03-23] MEDS: VITAMIN E (DL,TOCOPHERYL ACET) 400 UNIT CAP PO SCH (07:59)
[2017-03-23] MEDS: MAG HYDROX/AL HYDROX/SIMETH 30 ML, LIDOCAINE VISCOUS 30 ML, diphenhydrAMINE ELIXIR 75 M... PO SCH ×12 (07:59→21:02)
[2017-03-23] MEDS: IPRATROPIUM-ALBUTEROL 3 ML NEB INHALATION SCH ×4 (08:02→19:46)
[2017-03-23] MEDS: SYMBICORT 160-4.5 MCG INHALER INHALATION SCH (08:12)
--- NOTE | 2017-03-23 11:28 | P.PN ---
Subjective I AM ALSO COVERING FOR DR. Mulligan FOR THIS EVALUATION. 76-year-old male patient who is quite ill and he comes into the hospital because of various medical problems and chronic shortness of breath and difficulty in swallowing and chest congestion and generalized weakness and fatigue. The patient also had limited changes in his mentation. Note that the patient has history of coronary artery disease and he has undergone previous carotid bypass surgery 2014. 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 He has also peripheral vascular disease and has undergone stenting of the left lower extremity. He was recently diagnosed having small cell lung cancer. Diagnosed was established by bronchoscopy as the patient was found to have endobronchial tumor and based on the limited staging of the small cell lung cancer the patient was referred to radiation oncology and hematology oncology. A patient was started on radiation therapy and he was given a total of 10 sessions of radiation therapy and he has another 10 sessions to go. He was also given the first session of systemic chemotherapy with a combination of carboplatinum and [employer]ER-16. Note that the patient was doing well to around a few days ago and he started developing worsening in his mucositis and swallowing. His chest started becoming more congested. He was unable to swallow. He became progressively more weak and dehydrated. The family and himself denied any episodes of aspiration. He denied having any nausea vomiting or diarrhea. He reported burning sensation in his upper chest. At the same time he has noted some purulent nodules arising in his groin and suprapubic area. These are small nodular lesions that are measuring 1-2 cm in size which have some central purulent material draining. No dysuria. No frequency. No urgency. He still producing urine output. In the burst department the patient was found to be also in atrial fibrillation with rapid ventricular response and he was started on IV heparin and IV Cardizem. Rate is still tachycardic in the 120 range. At the same time the patient was found to be neutropenic and pancytopenic. His white cell count was at 0.2. He is single was 8.4. His platelet count at 48, 000. His creatinine was at 1.2. The patient was started on IV fluids. He was given IV fluid boluses and currently is on any normal saline infusion rate of 1 25 mL an hour. The patient is also on a combination of cefepime and vancomycin. No fever at this point. No headache. No neck stiffness. On 03/20/2017 I'm seeing this patient in follow-up in the intensive care unit. He is doing slightly better. Still unable to swallow and still having burning sensation in his throat and upper chest related to severe mucositis. He is afebrile. He is hemodynamically stable. He is on broad-spectrum antibiotics. All of the cultures of been negative. Still pancytopenic and the white cell count today is at 0.3 with a hemoglobin of 8.7 and platelet count of 23,000. He is still in atrial fibrillation with rate being controlled. He is on no anti -coagulation based on his underlying thrombocytopenia. He has a component of non-anion gap metabolic acidosis. His bicarb level is at 17. CAT scan of the brain was done today and the patient had shown mild diffuse cerebral atrophy with mild to moderate chronic small vessel ischemic changes. No other enhancing lesions. Family is at the bedside. The patient is lethargic and still profoundly weak. On 03/21/2017 I'm seeing this patient in follow-up in the intensive care units. Very much delirious and overnight very much agitated for which she was given Haldol and Ativan. Bit more comfortable and calm her today this morning. Family is at the bedside. Remains profoundly pancytopenic without any major recovery in his hematologic profile. Afebrile and hemodynamically stable covered with broad-spectrum antibiotics. All of the cultures have not indicated any specific microbial growth for now. ID is on the case. The pustules and the groin and suprapubic area remains unchanged. There are several of them at least 6 and only a few had some purulent center which seems to be much more dried up on today's evaluation. No bleeding. Platelet counts have dropped down to 13,000. Vancomycin trough is at 17.8. On 03/22/2017 I'm seeing this patient in follow-up. The patient is quite lethargic. He was agitated throughout the night. He had required several doses of Haldol and Ativan. He is per much sedated at this point and seems to be more comfortable. I was told that overnight he was very agitated and difficult to control. He is on 2 point restraints at this point. Hematologically, the patient is still pancytopenic and he still being treated for neutropenic fevers. He has a white cell count of 0.4 with a hemoglobin of 7.7 and platelet count of 17,000. He is afebrile. The cultures obtained from the groin wounds/pustules returned goods sorter to be MRSA and there may be also group D enterococcus. Blood cultures of been negative. Urine culture been negative. The patient is on no pressors. The patient is still on a combination of cefepime and vancomycin and micafungin regarding his neutropenic sepsis. ID is on the case. On 03/23/2017, the patient remains intubated on the mechanical ventilator. The patient sedated with Diprivan. The patient currently is an assist-control mode of ventilation, etc. rate of 20, tidal volume of 500, FiO2 of 40% and a PEEP of 5. The blood gases from this morning showed a pH of 7.37 with a pCO2 of 25 and pO2 of 144. The patient's chest x-ray shows a small right-sided pleural effusion. ET tube is in a good location. The patient is well sedated. The patient is receiving enteral feeding for nutritional support. The patient is on no pressors at this point and he is hemodynamically stable. The patient has been found to have MRSA in the suprapubic pustules and the patient is currently on a combination of vancomycin, Zosyn and micafungin. He remains pancytopenic and there is no improvement in his hematologic profile. White cell count remains at 0.5 with a hemoglobin of 8.6 and a platelet count of 12,000. CAT scan of the bilateral lower extremity was done yesterday and the patient has some enlarged left exterior iliac chain lymph nodes as well as bilateral prominent but nonenlarged inguinal femoral lymph node chains. There is some focal inflammatory changes along the anterior right groin area likely representing an area of cellulitis. No abscesses could be found. No evidence of any necrotizing fasciitis at this point. The patient is tolerating his tube feeds. He is calm and comfortable at this point. No other significant events overnight. Objective - Vital Signs Vital signs: Vital Signs Temp 97.9 F 03/23/17 09:00 Pulse 139 H 03/23/17 10:00 Resp 20 03/23/17 10:00 BP 85/57 03/23/17 10:00 Pulse Ox 100 03/23/17 10:00 Intake & Output 05/03/23/17 03/23/17 18:59 06:59 18:59 Intake Total 3357.733 5391.245 8154.175 Output Total 330 910 575 Balance 3027.733 489.475 509.175 Weight 95.1 kg Intake: Intake, IV Titration 2277.733 1169.475 744.175 Amount Cefepime 2 gm In Sodium 100 100 50 Chloride 0.9% 50 ml @ 100 mls/hr IVPB Q8H [facility] Rx#: [id number] Micafungin 100 mg In 100 Sodium Chloride 0.9% 100 ml @ 100 mls/hr IVPB DAILY@1800 [facility] Rx#: [id number] Potassium Chloride 10 meq 200 In Water For Injection 1 100ml.bag @ 100 mls/hr IVPB Q1H [facility] Rx#: [id number] Propofol 500 mg In Empty 152.733 169.475 94.175 Bag 1 bag @ Titrate IV . Q0M [facility] Rx#:[id number] Sodium Chloride 0.9% 1, 1675 900 150 000 ml @ 75 mls/hr IV . [id number] [facility] Rx#:[id number] Vancomycin 1,500 mg In 250 250 Sodium Chloride 0.9% 250 ml @ 125 mls/hr IVPB Q16H [facility] Rx#:[id number] Tube Feeding 1080 200 100 Other 30 240 Output: Urine 330 910 575 Other: Voiding Method Indwelling Catheter Indwelling Catheter Indwelling Catheter # Voids 1 1 # Bowel Movements 0 0 - Exam The patient is intubated on a mechanical ventilator sedated and calm and comfortable. Gastric and orotracheal tube are both in place. Head exam was generally normal. There was no scleral icterus or corneal arcus. Mucous membranes were moist. Mucous membranes are dry. There is no oropharyngeal thrush seen. No open ulceration in the mucous membranes. Lung sounds are diminished and there is some scattered rhonchi and crackles heard throughout the lung his bilaterally. Heart sounds are irregular, possible sinus stool, no cervical murmurs appreciated.Abdominal exam revealed normal bowel sounds. The abdomen was soft, non-tender, and without masses, organomegaly, or appreciable enlargement of the abdominal aorta. This atrophic area shows no other pustular lesions several of them the largest measuring 2 cm in size with central purulent material. Extremities show no edema no cyanosis or clubbing at the pulses are diminished. Neurologically patient is sedated. - Labs CBC & Chem 7: 03/23/17 05:37 03/23/17 05:37 Labs: Abnormal Lab Results - Last 24 Hours (Table) 03/22/17 03/23/17 03/23/17 Range/Units 12:28 05:21 05:37 WBC (3.8-10.6) k/uL RBC (4.30-5.90) m/uL Hgb (13.0-17.5) gm/dL Hct (39.0-53.0) % MCV (80.0-100.0) fL Plt Count (150-450) k/uL ABG pH 7.30 L (7.35-7.45) ABG pCO2 31 L 25 L (35-45) mmHg ABG pO2 253 H 144 H (83-108) mmHg ABG HCO3 15 L 14 L (21-25) mmol/L ABG Total CO2 16 L 15 L (19-24) mmol/L ABG O2 Saturation 99.8 H 99.0 H (94-97) % Sodium 147 H (137-145) mmol/L Chloride 119 H (98-107) mmol/L Carbon Dioxide 16 L (22-30) mmol/L BUN 27 H (9-20) mg/dL 03/23/17 Range/Units 05:37 WBC 0.5 L* (3.8-10.6) k/uL RBC 2.59 L (4.30-5.90) m/uL Hgb 8.6 L (13.0-17.5) gm/dL Hct 26.2 L (39.0-53.0) % MCV 101.2 H (80.0-100.0) fL Plt Count 12 L* (150-450) k/uL ABG pH (7.35-7.45) ABG pCO2 (35-45) mmHg ABG pO2 (83-108) mmHg ABG HCO3 (21-25) mmol/L ABG Total CO2 (19-24) mmol/L ABG O2 Saturation (94-97) % Sodium (137-145) mmol/L Chloride (98-107) mmol/L Carbon Dioxide (22-30) mmol/L BUN (9-20) mg/dL Microbiology - Last 24 Hours (Table) 03/22/17 12:17 Gram Stain - Preliminary Sputum Sputum Culture - Preliminary 03/18/17 21:10 Blood Culture - Preliminary Blood No Growth after 96 hours 03/20/17 12:22 Gram Stain - Final Abdomen Wound Culture - Final Methicillin resist S. aureus Enterococcus faecalis 03/21/17 11:35 Gram Stain - Preliminary Groin Wound Culture - Preliminary Presumptive MRSA Assessment and Plan Plan: Assessment 1 neutropenic sepsis. The patient is afebrile however he has very source of infection at these to be considered including the lungs, esophagitis and no other pustular lesions in the suprapubic and inguinal area which could be potentially staphylococcal or fungal. The wound cultures returned goods sorter to be positive for enterococcus and MRSA. The patient remains on a combination of cefepime, vancomycin and micafungin. 2 limited stage small cell lung cancer status post chemoradiation therapy. The patient has received one session of systemic chemotherapy with carboplatinum and [employer]ER-16 and 10 sessions of radiation therapy 3 esophagitis/mucositis secondary to radiation therapy with secondary difficulty in swallowing. Rule out candidal esophagitis 4 pancytopenia secondary to chemotherapy. . The patient remains profoundly neutropenic with a white cell count of 0.5. The patient is receiving Zarxio 5 paroxysmal atrial fibrillation, currently in sinus tachycardia 6 CHF with an ejection fraction of 35% 7 coronary artery disease with multivessel involvement and the patient is status post carotid bypass surgery 8 history of AICD placement 9 dysphagia, currently nothing by mouth 10 acute kidney injury, improved in the creatinine normalized 11 peripheral vascular disease with previous vascular intervention of the left lower extremity 12 prostate cancer status post prostatectomy 13 severe peripheral neuropathy 14 depression/anxiety 15 coronary artery bypass surgery, history of 16 acute respiratory failure secondary to above-mentioned comorbidities currently intubated on a mechanical ventilator. 17 hyperchloremic hypernatremia and the patient is receiving free water flushes 18 anion gap metabolic acidosis Plan the patient will be kept intubated on mechanical ventilator. The appropriate vent setting changes were done. At this point in time he is oxygenating and ventilating well. Chest x-ray shows no acute abnormalities. We are still giving this patient broad-spectrum antibiotics. The hematologic profile is still abnormal and the patient remains pancytopenic. We'll monitor the profile. We'll continue to tube feeds. We'll continue the antibiotic coverage. CAT scan of the lower extremities was noted. ID is on the case. Condition remains critical. We'll continue to follow and will make further recommendations based on his progress. Repeat labs in a.m. Keep the patient intubated on mechanical ventilator for now. The case was discussed with the family. There is a critically care evaluation. Time with Patient: Greater than 30
[2017-03-23] MEDS: FILGRASTIM-SNDZ 480 MCG/0.8 ML SYRINGE SQ SCH (14:30)
[2017-03-23] MEDS: MICAFUNGIN 100 MG in SODIUM CHLORIDE 0.9% 100 ML IVPB SCH (16:55)
[2017-03-23] MEDS ORDERED: VANCOMYCIN TROUGH DUE 1 EACH MISC MISCELLANE ONE (23:00)
[2017-03-23 23:10] LABS: Glucose,Whole Blood 188 mg/dL (75-99)
[2017-03-24] MEDS: VANCOMYCIN 1,500 MG in SODIUM CHLORIDE 0.9% 250 ML IVPB SCH ×2 (00:06→16:24)
[2017-03-24] MEDS: INSULIN LISPRO (humaLOG) 300 UNIT/3 ML VIAL SQ SCH ×5 (01:48→23:22)
[2017-03-24 01:50] LABS: Glucose,Whole Blood 204 mg/dL (75-99)
[2017-03-24] MEDS: PROPOFOL 500 MG in EMPTY BAG 1 BAG IV SCH ×8 (02:06→23:45)
[2017-03-24 05:42] LABS: CHCM 32.6; HCT 25.4 % (39.0-53.0); HGB 8.3 gm/dL (13.0-17.5); Immature Gran Flag Slight; MCH 33.4 pg (25.0-35.0); MCHC 32.9 g/dL (31.0-37.0); MCV 101.7 fL (80.0-100.0); Macrocytosis Slight; Mean Platelet Volume 8.7; RBC 2.49 m/uL (4.30-5.90); RDW 14.9 % (11.5-15.5); WBC (Perox) 0.45
[2017-03-24 05:46] LABS: WBC 0.4 k/uL (3.8-10.6)
[2017-03-24 05:52] LABS: ABG Base Excess -8.8 mmol/L; ABG HCO3 15 mmol/L (21-25); ABG PCO2 25 mmHg (35-45); ABG PO2 156 mmHg (83-108); ABG TCO2 16 mmol/L (19-24)
[2017-03-24 06:05] LABS: Glucose,Whole Blood 169 mg/dL (75-99)
[2017-03-24 06:07] LABS: Add Differential Manual Differential; Manual Review Performed
[2017-03-24] MEDS: METOPROLOL TARTRATE 5 MG/5 ML VIAL IVP SCH ×4 (06:46→23:21)
--- NOTE | 2017-03-24 07:42 | XR ---
EXAMINATION TYPE: XR chest 1V portable DATE OF EXAM: 03/24/2017 7:03 AM HISTORY: Tube placement. REFERENCE: Previous study dated 03/23/2017. FINDINGS: There has been a midline sternotomy. The patient is ET tube and NG tube remain in place, un changed in appearance. A unipolar pacemaker projects over the left chest. The heart is mildly enlarged. There is left basilar airspace disease. There is a small left effusion and a smaller right effusion. IMPRESSION: 1. MILD CARDIOMEGALY. 2. CONTINUING LEFT BASILAR AIRSPACE DISEASE. 3. SMALL LEFT EFFUSION WITH A QUESTIONABLE RIGHT-SIDED EFFUSION.
[2017-03-24] MEDS: SYMBICORT 160-4.5 MCG INHALER INHALATION SCH (07:57)
[2017-03-24] MEDS: IPRATROPIUM-ALBUTEROL 3 ML NEB INHALATION SCH ×4 (07:57→20:33)
[2017-03-24 08:25] LABS: Blood Urea Nitrogen 24 mg/dL (9-20); Carbon Dioxide 13 mmol/L (22-30); Glucose 165 mg/dL (74-99); Magnesium 1.9 mg/dL (1.6-2.3); Non-African American GFR(MDRD) >60 (>60 ml/min/1.73 sqM); Phosphorous 1.8 mg/dL (2.5-4.5); Potassium 3.2 mmol/L (3.5-5.1); Sodium 145 mmol/L (137-145)
[2017-03-24 08:29] LABS: Anion Gap 11 mmol/L; Chloride 121 mmol/L (98-107)
[2017-03-24] MEDS: SODIUM CHLORIDE 0.9% 1,000 ML IV SCH (08:52)
[2017-03-24] MEDS: PANTOPRAZOLE 40 MG/10 ML VIAL IV SCH ×2 (08:54→16:24)
[2017-03-24] MEDS: CEFEPIME 2 GM in SODIUM CHLORIDE 0.9% 50 ML IVPB SCH ×3 (08:56→23:21)
[2017-03-24] MEDS: CHOLECALCIFEROL 1,000 UNIT TAB PO SCH (08:57)
[2017-03-24] MEDS: SPIRONOLACTONE 25 MG TAB PO SCH (08:57)
[2017-03-24] MEDS: CHLORHEXIDINE GLUCONATE 15 ML CUP MUCOUS MEM SCH ×2 (08:57→20:18)
[2017-03-24] MEDS: ATORVASTATIN 80 MG TAB PO SCH (08:57)
[2017-03-24] MEDS: MAG HYDROX/AL HYDROX/SIMETH 30 ML, LIDOCAINE VISCOUS 30 ML, diphenhydrAMINE ELIXIR 75 M... PO SCH ×12 (08:58→20:18)
[2017-03-24] MEDS: DOCUSATE ORAL SOLN 100 MG/10 ML CUP PO SCH ×3 (08:58→20:18)
[2017-03-24] MEDS: FERROUS SULFATE 325 MG TAB PO SCH (08:58)
[2017-03-24] MEDS: GABAPENTIN 300 MG CAP PO SCH ×4 (08:58→20:18)
[2017-03-24] MEDS: ZINC OXIDE 20% OINT 28.4 GM TUBE TOPICAL SCH ×3 (08:58→20:18)
[2017-03-24] MEDS: HYDROCORTISONE 1% CREAM 454 GM JAR TOPICAL SCH ×2 (11:56→20:18)
[2017-03-24] MEDS: MULTIVITAMINS, THERA 1 EACH TAB PO SCH (11:56)
[2017-03-24] MEDS: PYRIDOXINE 50 MG TAB PO SCH (11:57)
[2017-03-24] MEDS: VITAMIN E (DL,TOCOPHERYL ACET) 400 UNIT CAP PO SCH (11:57)
[2017-03-24] MEDS: OXYBUTYNIN CHLORIDE 5 MG TAB PO SCH ×4 (11:57→20:18)
[2017-03-24 12:05] LABS: Glucose,Whole Blood 136 mg/dL (75-99)
--- NOTE | 2017-03-24 13:36 | P.PN ---
Subjective Principal diagnosis: Acute neutropenic sepsis and respiratory failure 76-year-old male patient who is quite ill and he comes into the hospital because of various medical problems and chronic shortness of breath and difficulty in swallowing and chest congestion and generalized weakness and fatigue. The patient also had limited changes in his mentation. Note that the patient has history of coronary artery disease and he has undergone previous carotid bypass surgery 2014. 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 He has also peripheral vascular disease and has undergone stenting of the left lower extremity. He was recently diagnosed having small cell lung cancer. Diagnosed was established by bronchoscopy as the patient was found to have endobronchial tumor and based on the limited staging of the small cell lung cancer the patient was referred to radiation oncology and hematology oncology. A patient was started on radiation therapy and he was given a total of 10 sessions of radiation therapy and he has another 10 sessions to go. He was also given the first session of systemic chemotherapy with a combination of carboplatinum and STEREO MAP PLOTTER OPERATOR-16. Note that the patient was doing well to around a few days ago and he started developing worsening in his mucositis and swallowing. His chest started becoming more congested. He was unable to swallow. He became progressively more weak and dehydrated. The family and himself denied any episodes of aspiration. He denied having any nausea vomiting or diarrhea. He reported burning sensation in his upper chest. At the same time he has noted some purulent nodules arising in his groin and suprapubic area. These are small nodular lesions that are measuring 1-2 cm in size which have some central purulent material draining. No dysuria. No frequency. No urgency. He still producing urine output. In the burst department the patient was found to be also in atrial fibrillation with rapid ventricular response and he was started on IV heparin and IV Cardizem. Rate is still tachycardic in the 120 range. At the same time the patient was found to be neutropenic and pancytopenic. His white cell count was at 0.2. He is single was 8.4. His platelet count at 48, 000. His creatinine was at 1.2. The patient was started on IV fluids. He was given IV fluid boluses and currently is on any normal saline infusion rate of 1 25 mL an hour. The patient is also on a combination of cefepime and vancomycin. No fever at this point. No headache. No neck stiffness. On 03/20/2017 I'm seeing this patient in follow-up in the intensive care unit. He is doing slightly better. Still unable to swallow and still having burning sensation in his throat and upper chest related to severe mucositis. He is afebrile. He is hemodynamically stable. He is on broad-spectrum antibiotics. All of the cultures of been negative. Still pancytopenic and the white cell count today is at 0.3 with a hemoglobin of 8.7 and platelet count of 23,000. He is still in atrial fibrillation with rate being controlled. He is on no anti -coagulation based on his underlying thrombocytopenia. He has a component of non-anion gap metabolic acidosis. His bicarb level is at 17. CAT scan of the brain was done today and the patient had shown mild diffuse cerebral atrophy with mild to moderate chronic small vessel ischemic changes. No other enhancing lesions. Family is at the bedside. The patient is lethargic and still profoundly weak. On 03/21/2017 I'm seeing this patient in follow-up in the intensive care units. Very much delirious and overnight very much agitated for which she was given Haldol and Ativan. Bit more comfortable and calm her today this morning. Family is at the bedside. Remains profoundly pancytopenic without any major recovery in his hematologic profile. Afebrile and hemodynamically stable covered with broad-spectrum antibiotics. All of the cultures have not indicated any specific microbial growth for now. ID is on the case. The pustules and the groin and suprapubic area remains unchanged. There are several of them at least 6 and only a few had some purulent center which seems to be much more dried up on today's evaluation. No bleeding. Platelet counts have dropped down to 13,000. Vancomycin trough is at 17.8. On 03/22/2017 I'm seeing this patient in follow-up. The patient is quite lethargic. He was agitated throughout the night. He had required several doses of Haldol and Ativan. He is per much sedated at this point and seems to be more comfortable. I was told that overnight he was very agitated and difficult to control. He is on 2 point restraints at this point. Hematologically, the patient is still pancytopenic and he still being treated for neutropenic fevers. He has a white cell count of 0.4 with a hemoglobin of 7.7 and platelet count of 17,000. He is afebrile. The cultures obtained from the groin wounds/pustules insole lip turner to be MRSA and there may be also group D enterococcus. Blood cultures of been negative. Urine culture been negative. The patient is on no pressors. The patient is still on a combination of cefepime and vancomycin and micafungin regarding his neutropenic sepsis. ID is on the case. On 03/23/2017, the patient remains intubated on the mechanical ventilator. The patient sedated with Diprivan. The patient currently is an assist-control mode of ventilation, etc. rate of 20, tidal volume of 500, FiO2 of 40% and a PEEP of 5. The blood gases from this morning showed a pH of 7.37 with a pCO2 of 25 and pO2 of 144. The patient's chest x-ray shows a small right-sided pleural effusion. ET tube is in a good location. The patient is well sedated. The patient is receiving enteral feeding for nutritional support. The patient is on no pressors at this point and he is hemodynamically stable. The patient has been found to have MRSA in the suprapubic pustules and the patient is currently on a combination of vancomycin, Zosyn and micafungin. He remains pancytopenic and there is no improvement in his hematologic profile. White cell count remains at 0.5 with a hemoglobin of 8.6 and a platelet count of 12,000. CAT scan of the bilateral lower extremity was done yesterday and the patient has some enlarged left exterior iliac chain lymph nodes as well as bilateral prominent but nonenlarged inguinal femoral lymph node chains. There is some focal inflammatory changes along the anterior right groin area likely representing an area of cellulitis. No abscesses could be found. No evidence of any necrotizing fasciitis at this point. The patient is tolerating his tube feeds. He is calm and comfortable at this point. No other significant events overnight. On 03/24/2017, patient remains intubated, on mechanical ventilation. His ventilator settings were reviewed, FiO2 is 30%, assist control rate of 20 tidal volume of 500 and PEEP of 5. ABG showed a pO2 of 156 pCO2 of 25 pH of 7.40. Other labs were reviewed, WBC count remains low at 0.4, hemoglobin is 8.3, platelets are 11,000. Basic metabolic profile showed sodium of 145 chloride is 121 patient has a hyperchloremic metabolic acidosis non-anion gap. Chest x-ray showed mild cardiomegaly and left basilar air space disease with small bilateral pleural effusions. Antibiotics remain to include cefepime, micafungin , and vancomycin. Patient remains sedated on propofol drip, hemodynamically seems to be relatively stable. Wound culture has been positive for methicillin staph aureus and Enterococcus faecalis. Both are sensitive to vancomycin. Objective - Vital Signs Vital signs: Vital Signs Temp 97.9 F 03/24/17 12:00 Pulse 104 H 03/24/17 12:13 Resp 21 03/24/17 12:00 BP 95/52 03/24/17 12:00 Pulse Ox 99 03/24/17 12:00 Intake & Output 03/23/17 03/24/17 03/24/17 18:59 06:59 18:59 Intake Total 2156.675 2457.34 1310 Output Total 1165 935 530 Balance 407.029 7993.34 780 Intake: Intake, IV Titration 1492.499 5878.34 500 Amount Cefepime 2 gm In Sodium 100 50 50 Chloride 0.9% 50 ml @ 100 mls/hr IVPB Q8H ERNESTO Rx#: [id number] Potassium Chloride 10 meq 200 In Water For Injection 1 100ml.bag @ 100 mls/hr IVPB Q1H ERNESTO Rx#: [id number] Propofol 500 mg In Empty 291.675 242.34 Bag 1 bag @ Titrate IV . Q0M ERNESTO Rx#:[id number] Sodium Chloride 0.9% 1, 700 825 450 000 ml @ 75 mls/hr IV . [id number] ERNESTO Rx#:[id number] Vancomycin 1,500 mg In 250 125 Sodium Chloride 0.9% 250 ml @ 125 mls/hr IVPB Q16H ERNESTO Rx#:[id number] Tube Feeding 375 540 360 Other 240 675 450 Output: Urine 1165 935 530 Other: Voiding Method Indwelling Catheter Indwelling Catheter Indwelling Catheter # Voids 1 # Bowel Movements 0 0 - Exam The patient is intubated on a mechanical ventilator sedated and calm and comfortable. Gastric and orotracheal tube are both in place. Head exam was generally normal. There was no scleral icterus or corneal arcus. Mucous membranes were moist. Mucous membranes are dry. There is no oropharyngeal thrush seen. No open ulceration in the mucous membranes. Lung sounds are diminished and there is some scattered rhonchi and crackles heard throughout the lung his bilaterally. Heart sounds are irregular, possible sinus stool, no cervical murmurs appreciated.Abdominal exam revealed normal bowel sounds. The abdomen was soft, non-tender, and without masses, organomegaly, or appreciable enlargement of the abdominal aorta. This groin area shows no other pustular lesions several of them the largest measuring 2 cm in size with central purulent material. Extremities show no edema no cyanosis or clubbing at the pulses are diminished. Neurologically patient is sedated. - Labs CBC & Chem 7: 03/24/17 05:24 03/24/17 05:24 Labs: Abnormal Lab Results - Last 24 Hours (Table) 03/23/17 03/24/17 03/24/17 Range/Units 23:08 01:48 05:24 WBC 0.4 L* (3.8-10.6) k/uL RBC 2.49 L (4.30-5.90) m/uL Hgb 8.3 L (13.0-17.5) gm/dL Hct 25.4 L (39.0-53.0) % MCV 101.7 H (80.0-100.0) fL Plt Count 11 L* (150-450) k/uL ABG pCO2 (35-45) mmHg ABG pO2 (83-108) mmHg ABG HCO3 (21-25) mmol/L ABG Total CO2 (19-24) mmol/L ABG O2 Saturation (94-97) % Potassium (3.5-5.1) mmol/L Chloride (98-107) mmol/L Carbon Dioxide (22-30) mmol/L BUN (9-20) mg/dL Glucose (74-99) mg/dL POC Glucose (mg/dL) 188 H 204 H (75-99) mg/dL Calcium (8.4-10.2) mg/dL Phosphorus (2.5-4.5) mg/dL 03/24/17 03/24/17 03/24/17 Range/Units 05:24 05:32 06:03 WBC (3.8-10.6) k/uL RBC (4.30-5.90) m/uL Hgb (13.0-17.5) gm/dL Hct (39.0-53.0) % MCV (80.0-100.0) fL Plt Count (150-450) k/uL ABG pCO2 25 L (35-45) mmHg ABG pO2 156 H (83-108) mmHg ABG HCO3 15 L (21-25) mmol/L ABG Total CO2 16 L (19-24) mmol/L ABG O2 Saturation 100.0 H (94-97) % Potassium 3.2 L (3.5-5.1) mmol/L Chloride 121 H* (98-107) mmol/L Carbon Dioxide 13 L (22-30) mmol/L BUN 24 H (9-20) mg/dL Glucose 165 H (74-99) mg/dL POC Glucose (mg/dL) 169 H (75-99) mg/dL Calcium 8.0 L (8.4-10.2) mg/dL Phosphorus 1.8 L (2.5-4.5) mg/dL 03/24/17 Range/Units 11:55 WBC (3.8-10.6) k/uL RBC (4.30-5.90) m/uL Hgb (13.0-17.5) gm/dL Hct (39.0-53.0) % MCV (80.0-100.0) fL Plt Count (150-450) k/uL ABG pCO2 (35-45) mmHg ABG pO2 (83-108) mmHg ABG HCO3 (21-25) mmol/L ABG Total CO2 (19-24) mmol/L ABG O2 Saturation (94-97) % Potassium (3.5-5.1) mmol/L Chloride (98-107) mmol/L Carbon Dioxide (22-30) mmol/L BUN (9-20) mg/dL Glucose (74-99) mg/dL POC Glucose (mg/dL) 136 H (75-99) mg/dL Calcium (8.4-10.2) mg/dL Phosphorus (2.5-4.5) mg/dL Microbiology - Last 24 Hours (Table) 03/22/17 12:17 Gram Stain - Final Sputum Sputum Culture - Final 03/18/17 21:10 Blood Culture - Preliminary Blood No Growth after 120 hours 03/21/17 11:35 Gram Stain - Final Groin Wound Culture - Final Methicillin resist S. aureus Assessment and Plan Plan: 1 neutropenic sepsis. The patient is afebrile however he has very source of infection at these to be considered including the lungs, esophagitis and no other pustular lesions in the suprapubic and inguinal area which could be potentially staphylococcal or fungal. The wound cultures insole lip turner to be positive for enterococcus and MRSA. The patient remains on a combination of cefepime, vancomycin and micafungin. 2 limited stage small cell lung cancer status post chemoradiation therapy. The patient has received one session of systemic chemotherapy with carboplatinum and STEREO MAP PLOTTER OPERATOR-16 and 10 sessions of radiation therapy 3 esophagitis/mucositis secondary to radiation therapy with secondary difficulty in swallowing. Rule out candidal esophagitis 4 pancytopenia secondary to chemotherapy. . The patient remains profoundly neutropenic with a white cell count of 0.5. The patient is receiving Zarxio 5 paroxysmal atrial fibrillation, currently in sinus tachycardia 6 CHF with an ejection fraction of 35% 7 coronary artery disease with multivessel involvement and the patient is status post carotid bypass surgery 8 history of AICD placement 9 dysphagia, currently nothing by mouth 10 acute kidney injury, improved in the creatinine normalized 11 peripheral vascular disease with previous vascular intervention of the left lower extremity 12 prostate cancer status post prostatectomy 13 severe peripheral neuropathy 14 depression/anxiety 15 coronary artery bypass surgery, history of 16 acute respiratory failure secondary to above-mentioned comorbidities currently intubated on a mechanical ventilator. 17 hyperchloremic hypernatremia and the patient is receiving free water flushes Recommendation: Continue present supportive care measures including mechanical ventilation, nutritional support, hemodynamic support if necessary, antibiotics , continue to monitor her hematologic profile, discussed his condition with his daughter at bedside, I also discussed his condition with the oncologist on the case Dr. Figueroa. Critical care time is 34 minutes. We'll continue to follow closely. No plans to address weeding at this point. Time with Patient: Greater than 30
[2017-03-24] MEDS: FILGRASTIM-SNDZ 480 MCG/0.8 ML SYRINGE SQ SCH (14:22)
--- NOTE | 2017-03-24 15:12 | P.PN ---
Subjective Patient is a 76-year-old male, patient of Dr. Mulligan in the outpatient setting, with medical history significant for paroxysmal atrial fibrillation, GERD, hyperlipidemia, hypertension, coronary artery disease status post coronary artery bypass grafting in 2014 followed by stenting to the left SFA in August 2015, myocardial infarction, ischemic cardiomyopathy status post placement of internal cardiac defibrillator, prostate cancer status post prostatectomy in 1998, peripheral vascular disease status post stent placement to left lower extremity, osteoarthritis, severe peripheral neuropathy, and remote nicotine dependence. 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 Per chart and daughter, patient had been experiencing trouble with swallowing and increased shortness of breath over the last couple of days prior to admission in addition to having generalized weakness, fatigue, and shakiness. Patient originally presented to [facility] where he underwent a CTA of the chest with evidence of cardiomegaly, right upper lung nodule and right hilar invasive mass with thoracic adenopathy; and moderate to severe thickening of the mid esophagus. Patient was transferred to [facility]. In the emergency department, patient was found to have evidence of febrile neutropenia and pancytopenia with evidence of acute renal failure. Patient was admitted to the intensive care unit and consults were requested for Dr. Figueroa for oncology service , Dr. Courtney for pulmonary service, cardiology service, and Dr. Gomez for infectious disease service. Patient is evaluated in the intensive care unit where he is currently intubated and sedated on mechanical ventilation. Patient has not needed any use of vasopressors for hemodynamic stability. Urine output adequate. Patient is tolerating tube feeds. No plan for weaning today. Chest x-ray from today with evidence of mild cardiomegaly, continued left basilar airspace disease, and small left effusion with questionable right-sided effusion. Patient does have wound culture positive for MRSA from pustules in his groin. Objective - Vital Signs Vital signs: Vital Signs Temp 98.4 F 03/24/17 14:18 Pulse 135 H 03/24/17 14:18 Resp 20 03/24/17 14:18 BP 91/63 03/24/17 14:18 Pulse Ox 99 03/24/17 12:00 Intake & Output 03/23/17 03/24/17 03/24/17 18:59 06:59 18:59 Intake Total 2156.675 2457.34 1310 Output Total 1165 935 530 Balance 296.614 6234.34 780 Intake: Intake, IV Titration 0735.995 3510.34 500 Amount Cefepime 2 gm In Sodium 100 50 50 Chloride 0.9% 50 ml @ 100 mls/hr IVPB Q8H ERNESTO Rx#: [id number] Potassium Chloride 10 meq 200 In Water For Injection 1 100ml.bag @ 100 mls/hr IVPB Q1H ERNESTO Rx#: [id number] Propofol 500 mg In Empty 291.675 242.34 Bag 1 bag @ Titrate IV . Q0M ERNESTO Rx#:[id number] Sodium Chloride 0.9% 1, 700 825 450 000 ml @ 75 mls/hr IV . [id number] ERNESTO Rx#:[id number] Vancomycin 1,500 mg In 250 125 Sodium Chloride 0.9% 250 ml @ 125 mls/hr IVPB Q16H ERNESTO Rx#:[id number] Tube Feeding 375 540 360 Blood Product 0 Platelet Pheresis Acda 0 Unit [id number] Other 240 675 450 Output: Urine 1165 935 530 Other: Voiding Method Indwelling Catheter Indwelling Catheter Indwelling Catheter # Voids 1 # Bowel Movements 0 0 - Exam GENERAL: Pt is sedated on the ventilator. HEAD: Atraumatic, normocephalic. EYES: Pupils equal, round, and reactive to light, sclera anicteric, conjunctiva are normal. ENT: Moist mucous membranes. NECK: Supple without lymphadenopathy or JVD. Trachea midline. LUNGS: Breath sounds diminished to throughout lung kohler. HEART: Heart S1, S2, no S3 or S4. Regular irregular. No murmurs, rubs or gallops. ABDOMEN: Soft, nondistended, normoactive bowel sounds. No guarding, no rebound. No masses or organomegaly appreciated. EXTREMITIES: 1+ peripheral pulses. 1+ Peripheral edema to upper and lower extremities. NEUROLOGICAL: Pt sedated. SKIN: Warm, dry. - Labs CBC & Chem 7: 03/24/17 05:24 03/24/17 05:24 Labs: Abnormal Lab Results - Last 24 Hours (Table) 03/23/17 03/24/17 03/24/17 Range/Units 23:08 01:48 05:24 WBC 0.4 L* (3.8-10.6) k/uL RBC 2.49 L (4.30-5.90) m/uL Hgb 8.3 L (13.0-17.5) gm/dL Hct 25.4 L (39.0-53.0) % MCV 101.7 H (80.0-100.0) fL Plt Count 11 L* (150-450) k/uL ABG pCO2 (35-45) mmHg ABG pO2 (83-108) mmHg ABG HCO3 (21-25) mmol/L ABG Total CO2 (19-24) mmol/L ABG O2 Saturation (94-97) % Potassium (3.5-5.1) mmol/L Chloride (98-107) mmol/L Carbon Dioxide (22-30) mmol/L BUN (9-20) mg/dL Glucose (74-99) mg/dL POC Glucose (mg/dL) 188 H 204 H (75-99) mg/dL Calcium (8.4-10.2) mg/dL Phosphorus (2.5-4.5) mg/dL 03/24/17 03/24/17 03/24/17 Range/Units 05:24 05:32 06:03 WBC (3.8-10.6) k/uL RBC (4.30-5.90) m/uL Hgb (13.0-17.5) gm/dL Hct (39.0-53.0) % MCV (80.0-100.0) fL Plt Count (150-450) k/uL ABG pCO2 25 L (35-45) mmHg ABG pO2 156 H (83-108) mmHg ABG HCO3 15 L (21-25) mmol/L ABG Total CO2 16 L (19-24) mmol/L ABG O2 Saturation 100.0 H (94-97) % Potassium 3.2 L (3.5-5.1) mmol/L Chloride 121 H* (98-107) mmol/L Carbon Dioxide 13 L (22-30) mmol/L BUN 24 H (9-20) mg/dL Glucose 165 H (74-99) mg/dL POC Glucose (mg/dL) 169 H (75-99) mg/dL Calcium 8.0 L (8.4-10.2) mg/dL Phosphorus 1.8 L (2.5-4.5) mg/dL 03/24/17 Range/Units 11:55 WBC (3.8-10.6) k/uL RBC (4.30-5.90) m/uL Hgb (13.0-17.5) gm/dL Hct (39.0-53.0) % MCV (80.0-100.0) fL Plt Count (150-450) k/uL ABG pCO2 (35-45) mmHg ABG pO2 (83-108) mmHg ABG HCO3 (21-25) mmol/L ABG Total CO2 (19-24) mmol/L ABG O2 Saturation (94-97) % Potassium (3.5-5.1) mmol/L Chloride (98-107) mmol/L Carbon Dioxide (22-30) mmol/L BUN (9-20) mg/dL Glucose (74-99) mg/dL POC Glucose (mg/dL) 136 H (75-99) mg/dL Calcium (8.4-10.2) mg/dL Phosphorus (2.5-4.5) mg/dL Microbiology - Last 24 Hours (Table) 03/22/17 12:17 Gram Stain - Final Sputum Sputum Culture - Final 03/18/17 21:10 Blood Culture - Preliminary Blood No Growth after 120 hours 03/21/17 11:35 Gram Stain - Final Groin Wound Culture - Final Methicillin resist S. aureus Assessment and Plan Plan: Impression: 1. Neutropenic sepsis suspect secondary to recent chemotherapy and radiation for limited stage small cell lung carcinoma post chemoradiation therapy. Wound cultures positive for enterococcus and MRSA. Patient has received one session of systemic chemotherapy with carboplatinum and BICYCLE MECHANIC-16 and 10 sessions of radiation therapy. 2. Pancytopenia suspect secondary to anti-neoplastic chemotherapy. 3. Atrial flutter with rapid ventricular response. 4. Acute renal failure, present on admission, suspect secondary to hypovolemia and hypoperfusion, secondary to dehydration, resolved. 5. Elevated blood sugars on admission. 6. Elevated alkaline phosphatase, present on admission. 7. Dysphagia, present on admission, suspect secondary to esophagitis and mucositis secondary to recent chemotherapy and radiation with possibility of Traci esophagitis. 8. Chronic renal failure, stage III. 9. Paroxysmal atrial fibrillation maintained on Eliquis in the outpatient setting. 10. Hyperlipidemia. 11. Hypertension. 12. History of ischemic cardiomyopathy status post AICD placement. Ejection fraction 35%. 13. Coronary artery disease status post coronary artery bypass grafting followed by stenting. 14. History of prostate cancer status post prostatectomy. 15. History of GERD. 16. Severe peripheral vascular disease status post stenting to right lower extremity. 17. Severe peripheral neuropathy. 18. Osteoarthritis. 19. History of anxiety and depression, stable. 20. History of nicotine dependence. 21. Acute respiratory failure secondary to above mentioned comorbidities currently intubated on a mechanical ventilator. Plan: Continue to monitor patient. Continue IV antibiotics for empiric coverage. Continue current medications. Continue supportive treatment. Continue to follow with consultants. Continue GI and DVT prophylaxis. Repeat CBC, CMP, magnesium and phosphorus in a.m. The above impression and plan have been discussed and directed by Dr. Mulligan. Carmel LACEY acting as scribe for Isaak.
--- NOTE | 2017-03-24 15:15 | P.PN ---
Subjective Principal diagnosis: Neutropenic sepsis Pt seen today in ICU, daughter is at bedside, pt is sedated and mechanically ventilated. Objective - Vital Signs Vital signs: Vital Signs Temp 98.4 F 03/24/17 14:18 Pulse 135 H 03/24/17 14:18 Resp 20 03/24/17 14:18 BP 91/63 03/24/17 14:18 Pulse Ox 99 03/24/17 12:00 Intake & Output 03/23/17 03/24/17 03/24/17 18:59 06:59 18:59 Intake Total 2156.675 2457.34 1310 Output Total 1165 935 530 Balance 328.565 9949.34 780 Intake: Intake, IV Titration 8832.060 1894.34 500 Amount Cefepime 2 gm In Sodium 100 50 50 Chloride 0.9% 50 ml @ 100 mls/hr IVPB Q8H [facility] Rx#: [id number] Potassium Chloride 10 meq 200 In Water For Injection 1 100ml.bag @ 100 mls/hr IVPB Q1H [facility] Rx#: [id number] Propofol 500 mg In Empty 291.675 242.34 Bag 1 bag @ Titrate IV . Q0M [facility] Rx#:[id number] Sodium Chloride 0.9% 1, 700 825 450 000 ml @ 75 mls/hr IV . [id number] [facility] Rx#:[id number] Vancomycin 1,500 mg In 250 125 Sodium Chloride 0.9% 250 ml @ 125 mls/hr IVPB Q16H [facility] Rx#:[id number] Tube Feeding 375 540 360 Blood Product 0 Platelet Pheresis Acda 0 Unit [id number] Other 240 675 450 Output: Urine 1165 935 530 Other: Voiding Method Indwelling Catheter Indwelling Catheter Indwelling Catheter # Voids 1 # Bowel Movements 0 0 - Constitutional General appearance: Present: average body habitus - Respiratory Respiratory: bilateral: CTA - Cardiovascular Rhythm: irregularly irregular Heart sounds: normal: S1, S2 - Peripheral edema leg Peripheral Edema: bilateral: 2+ - Gastrointestinal General gastrointestinal: Present: normal bowel sounds, soft - Integumentary Integumentary: Present: pale - Labs CBC & Chem 7: 03/24/17 05:24 03/24/17 05:24 Labs: Abnormal Lab Results - Last 24 Hours (Table) 03/23/17 03/24/17 03/24/17 Range/Units 23:08 01:48 05:24 WBC 0.4 L* (3.8-10.6) k/uL RBC 2.49 L (4.30-5.90) m/uL Hgb 8.3 L (13.0-17.5) gm/dL Hct 25.4 L (39.0-53.0) % MCV 101.7 H (80.0-100.0) fL Plt Count 11 L* (150-450) k/uL ABG pCO2 (35-45) mmHg ABG pO2 (83-108) mmHg ABG HCO3 (21-25) mmol/L ABG Total CO2 (19-24) mmol/L ABG O2 Saturation (94-97) % Potassium (3.5-5.1) mmol/L Chloride (98-107) mmol/L Carbon Dioxide (22-30) mmol/L BUN (9-20) mg/dL Glucose (74-99) mg/dL POC Glucose (mg/dL) 188 H 204 H (75-99) mg/dL Calcium (8.4-10.2) mg/dL Phosphorus (2.5-4.5) mg/dL 03/24/17 03/24/17 03/24/17 Range/Units 05:24 05:32 06:03 WBC (3.8-10.6) k/uL RBC (4.30-5.90) m/uL Hgb (13.0-17.5) gm/dL Hct (39.0-53.0) % MCV (80.0-100.0) fL Plt Count (150-450) k/uL ABG pCO2 25 L (35-45) mmHg ABG pO2 156 H (83-108) mmHg ABG HCO3 15 L (21-25) mmol/L ABG Total CO2 16 L (19-24) mmol/L ABG O2 Saturation 100.0 H (94-97) % Potassium 3.2 L (3.5-5.1) mmol/L Chloride 121 H* (98-107) mmol/L Carbon Dioxide 13 L (22-30) mmol/L BUN 24 H (9-20) mg/dL Glucose 165 H (74-99) mg/dL POC Glucose (mg/dL) 169 H (75-99) mg/dL Calcium 8.0 L (8.4-10.2) mg/dL Phosphorus 1.8 L (2.5-4.5) mg/dL 03/24/17 Range/Units 11:55 WBC (3.8-10.6) k/uL RBC (4.30-5.90) m/uL Hgb (13.0-17.5) gm/dL Hct (39.0-53.0) % MCV (80.0-100.0) fL Plt Count (150-450) k/uL ABG pCO2 (35-45) mmHg ABG pO2 (83-108) mmHg ABG HCO3 (21-25) mmol/L ABG Total CO2 (19-24) mmol/L ABG O2 Saturation (94-97) % Potassium (3.5-5.1) mmol/L Chloride (98-107) mmol/L Carbon Dioxide (22-30) mmol/L BUN (9-20) mg/dL Glucose (74-99) mg/dL POC Glucose (mg/dL) 136 H (75-99) mg/dL Calcium (8.4-10.2) mg/dL Phosphorus (2.5-4.5) mg/dL Microbiology - Last 24 Hours (Table) 03/22/17 12:17 Gram Stain - Final Sputum Sputum Culture - Final 03/18/17 21:10 Blood Culture - Preliminary Blood No Growth after 120 hours 03/21/17 11:35 Gram Stain - Final Groin Wound Culture - Final Methicillin resist S. aureus - Imaging and Cardiology CT report of extremities reviewed Assessment and Plan (1) Febrile neutropenia Narrative/Plan: Cont GCSF. Pt on antibiotics. No fever >24 hours but pt is tachycardic and hypotensive, Cardiology has been consulted Status: Acute (2) Pancytopenia due to antineoplastic chemotherapy Narrative/Plan: Platelet transfusion today, Hgb stable, cont GCSF Status: Acute (3) Small cell lung cancer Narrative/Plan: Pt had just 1 cycle of treatment. Chemotherapy is on hold at this time. He will require evaluation with Primary Oncologist prior to resuming any therapy. Status: Chronic
[2017-03-24 17:49] LABS: Hemoglobin A1C 6.3 % (4.2-6.1)
[2017-03-24] MEDS: MICAFUNGIN 100 MG in SODIUM CHLORIDE 0.9% 100 ML IVPB SCH (18:22)
[2017-03-24 19:41] LABS: Glucose,Whole Blood 146 mg/dL (75-99)
[2017-03-24] MEDS: POTASSIUM PHOSPHATE 10 MMOL in SODIUM CHLORIDE 0.9% 250 ML IV SCH ×2 (20:17→22:33)
--- NOTE | 2017-03-24 22:38 | P.PN ---
Subjective Principal diagnosis: Febrile neutropenia 76-year-old male with a known history of small cell lung carcinoma who is been undergoing chemoradiation. Presents emergency center with increasing shortness of breath increasing weakness, increasing fatigue and increasing difficulty with swallowing. He was evaluated by bronchoscopy and endobronchial tumor was noted. She related it was a limited stage small cell lung carcinoma. In counseling and started radiation therapy with concomitant carboplatinum and [employer]. 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 Decreasing oral intake and increasing weakness. He now presents with evidence of fever, neutropenia and significant dehydration. He is being transferred from the emergency center to the intensive care unit given his atrial fibrillation and hypotension. He has a long-standing history of coronary artery disease atrial fibrillation as well as BPH chronic renal disease and peripheral vascular disease. Is related that he does have a low ejection fraction of 30-35%. His atrial fibrillation is chronic but his rate was quite elevated earlier. With resuscitation and diltiazem drip he has improved. Was having severe pain with Dilaudid and viscous lidocaine he has had some improvement of his status. Patient's respiratory status continued to decline. Required intubation , He is now quite calm that he has been sedated. Objective - Vital Signs Vital signs: Vital Signs Temp 98.2 F 03/24/17 20:00 Pulse 138 H 03/24/17 22:00 Resp 26 H 03/24/17 22:00 BP 126/74 03/24/17 22:00 Pulse Ox 100 03/24/17 22:00 Intake & Output 03/24/17 03/24/17 03/25/17 06:59 18:59 06:59 Intake Total 2457.34 3003 1222.78 Output Total 777 972 2413 Balance 1522.34 2033 107.78 Weight 95.1 kg Intake: Intake, IV Titration 1242.34 1100 474.78 Amount Cefepime 2 gm In Sodium 50 50 Chloride 0.9% 50 ml @ 100 mls/hr IVPB Q8H [facility] Rx#: [id number] Potassium Phosphate 10 125 mmol In Sodium Chloride 0 .9% 250 ml @ 125 mls/hr IV Q2H [facility] Rx#:[id number] Propofol 500 mg In Empty 242.34 150 49.78 Bag 1 bag @ Titrate IV . Q0M [facility] Rx#:[id number] Sodium Chloride 0.9% 1, 825 900 300 000 ml @ 75 mls/hr IV . [id number] [facility] Rx#:[id number] Vancomycin 1,500 mg In 125 Sodium Chloride 0.9% 250 ml @ 125 mls/hr IVPB Q16H COUNTS INCLUDE 234 BEDS AT THE [facility] Rx#:[id number] Oral 30 Tube Feeding 540 630 120 Blood Product 598 598 Platelet Pheresis Acda 598 Unit [id number] Other 675 675 Output: Urine 644 156 8319 Other: Voiding Method Indwelling Catheter Indwelling Catheter Indwelling Catheter # Bowel Movements 0 0 - Exam 76-year-old male who appears to be acutely ill. He is now intubated. HEENT: Anicteric conjunctiva are pink and moist nasal mucosa grossly intact without significant lesions, no evidence of bleeding of the oral cavity around the endotracheal tube. Neck: The neck is supple without significant lymphadenopathy or thyromegaly. Lungs: Symmetric air entry is noted. Basilar crackles are noted. Expiratory wheezes are scattered no bronchial sounds Heart: Irregularly irregular rate about 120. Soft S4 no murmur click or rub is noted Abdomen: Positive bowel sounds soft and nontender without palpable masses or organomegaly. There was no guarding or rebound. Extremities: Extremities have some generalized edema.. Neuro: Sedated Skin on the interior aspect of both thighs, as well as anterior aspect of both thighs and lower abdominal wall or multiple small skin lesions that have developed since he's been on chemotherapy. There is some induration around these sites. There is no expressible purulence. Some evidence of some mild erythema to the anterior chest wall as well to his back from initiation of the recent radiation therapy. - Labs CBC & Chem 7: 03/24/17 05:24 03/24/17 05:24 Labs: Abnormal Lab Results - Last 24 Hours (Table) 03/23/17 03/24/17 03/24/17 Range/Units 23:08 01:48 05:24 WBC 0.4 L* (3.8-10.6) k/uL RBC 2.49 L (4.30-5.90) m/uL Hgb 8.3 L (13.0-17.5) gm/dL Hct 25.4 L (39.0-53.0) % MCV 101.7 H (80.0-100.0) fL Plt Count 11 L* (150-450) k/uL ABG pCO2 (35-45) mmHg ABG pO2 (83-108) mmHg ABG HCO3 (21-25) mmol/L ABG Total CO2 (19-24) mmol/L ABG O2 Saturation (94-97) % Potassium (3.5-5.1) mmol/L Chloride (98-107) mmol/L Carbon Dioxide (22-30) mmol/L BUN (9-20) mg/dL Glucose (74-99) mg/dL POC Glucose (mg/dL) 188 H 204 H (75-99) mg/dL Hemoglobin A1c (4.2-6.1) % Calcium (8.4-10.2) mg/dL Phosphorus (2.5-4.5) mg/dL 03/24/17 03/24/17 03/24/17 Range/Units 05:24 05:24 05:32 WBC (3.8-10.6) k/uL RBC (4.30-5.90) m/uL Hgb (13.0-17.5) gm/dL Hct (39.0-53.0) % MCV (80.0-100.0) fL Plt Count (150-450) k/uL ABG pCO2 25 L (35-45) mmHg ABG pO2 156 H (83-108) mmHg ABG HCO3 15 L (21-25) mmol/L ABG Total CO2 16 L (19-24) mmol/L ABG O2 Saturation 100.0 H (94-97) % Potassium 3.2 L (3.5-5.1) mmol/L Chloride 121 H* (98-107) mmol/L Carbon Dioxide 13 L (22-30) mmol/L BUN 24 H (9-20) mg/dL Glucose 165 H (74-99) mg/dL POC Glucose (mg/dL) (75-99) mg/dL Hemoglobin A1c 6.3 H (4.2-6.1) % Calcium 8.0 L (8.4-10.2) mg/dL Phosphorus 1.8 L (2.5-4.5) mg/dL 03/24/17 03/24/17 03/24/17 Range/Units 06:03 11:55 19:39 WBC (3.8-10.6) k/uL RBC (4.30-5.90) m/uL Hgb (13.0-17.5) gm/dL Hct (39.0-53.0) % MCV (80.0-100.0) fL Plt Count (150-450) k/uL ABG pCO2 (35-45) mmHg ABG pO2 (83-108) mmHg ABG HCO3 (21-25) mmol/L ABG Total CO2 (19-24) mmol/L ABG O2 Saturation (94-97) % Potassium (3.5-5.1) mmol/L Chloride (98-107) mmol/L Carbon Dioxide (22-30) mmol/L BUN (9-20) mg/dL Glucose (74-99) mg/dL POC Glucose (mg/dL) 169 H 136 H 146 H (75-99) mg/dL Hemoglobin A1c (4.2-6.1) % Calcium (8.4-10.2) mg/dL Phosphorus (2.5-4.5) mg/dL Microbiology - Last 24 Hours (Table) 03/22/17 12:17 Gram Stain - Final Sputum Sputum Culture - Final 03/18/17 21:10 Blood Culture - Preliminary Blood No Growth after 120 hours Laboratory Results WBC 0.4 k/uL (3.8-10.6) L* 03/24/17 05:24 RBC 2.49 m/uL (4.30-5.90) L 03/24/17 05:24 Hgb 8.3 gm/dL (13.0-17.5) L 03/24/17 05:24 Hct 25.4 % (39.0-53.0) L 03/24/17 05:24 MCV 101.7 fL (80.0-100.0) H 03/24/17 05:24 MCH 33.4 pg (25.0-35.0) 03/24/17 05:24 MCHC 32.9 g/dL (31.0-37.0) 03/24/17 05:24 RDW 14.9 % (11.5-15.5) 03/24/17 05:24 Plt Count 11 k/uL (150-450) L* 03/24/17 05:24 Neutrophils % 27 % 03/18/17 21:10 Lymphocytes % 58 % 03/18/17 21:10 Monocytes % 6 % 03/18/17 21:10 Eosinophils % 3 % 03/18/17 21:10 Basophils % 3 % 03/18/17 21:10 Neutrophils # 0.1 k/uL (1.3-7.7) L 03/18/17 21:10 Lymphocytes # 0.1 k/uL (1.0-4.8) L 03/18/17 21:10 Monocytes # 0.0 k/uL (0-1.0) 03/18/17 21:10 Eosinophils # 0.0 k/uL (0-0.7) 03/18/17 21:10 Basophils # 0.0 k/uL (0-0.2) 03/18/17 21:10 Differential Comment 03/24/17 05:24 Manual Slide Review Performed 03/24/17 05:24 Hypochromasia Slight 03/21/17 07:03 Poikilocytosis (manual Present 03/23/17 05:37 Anisocytosis (manual) Present 03/23/17 05:37 Macrocytosis Slight 03/24/17 05:24 Tear Drop Cells Present 03/21/17 07:03 Ovalocytes Present 03/21/17 07:03 PT 13.2 sec (9.0-12.0) H 03/20/17 04:26 INR 1.3 (<1.1) 03/20/17 04:26 APTT 24.3 sec (22.0-30.0) 03/20/17 04:26 Sample Site LRAD 03/24/17 05:32 ABG pH 7.40 (7.35-7.45) 03/24/17 05:32 ABG pCO2 25 mmHg (35-45) L 03/24/17 05:32 ABG pO2 156 mmHg (83-108) H 03/24/17 05:32 ABG HCO3 15 mmol/L (21-25) L 03/24/17 05:32 ABG Total CO2 16 mmol/L (19-24) L 03/24/17 05:32 ABG O2 Saturation 100.0 % (94-97) H 03/24/17 05:32 ABG Base Excess -8.8 mmol/L 03/24/17 05:32 FiO2 40 % 03/24/17 05:32 Sodium 145 mmol/L (137-145) 03/24/17 05:24 Potassium 3.2 mmol/L (3.5-5.1) L 03/24/17 05:24 Chloride 121 mmol/L (98-107) H* 03/24/17 05:24 Carbon Dioxide 13 mmol/L (22-30) L 03/24/17 05:24 Anion Gap 11 mmol/L 03/24/17 05:24 BUN 24 mg/dL (9-20) H 03/24/17 05:24 Creatinine 0.88 mg/dL (0.66-1.25) 03/24/17 05:24 Est GFR (MDRD) Af Amer >60 (>60 ml/min/1.73 sqM) 03/24/17 05:24 Est GFR (MDRD) Non-Af >60 (>60 ml/min/1.73 sqM) 03/24/17 05:24 Glucose 165 mg/dL (74-99) H 03/24/17 05:24 POC Glucose (mg/dL) 146 mg/dL (75-99) H 03/24/17 19:39 POC Glu Director [employer] Haydee Chavez 03/24/17 19:[address] Glu mg/dL 134 mg/dL 03/24/17 05:24 Hemoglobin A1c 6.3 % (4.2-6.1) H 03/24/17 05:24 Plasma Lactic Acid Arnaldo 1.3 mmol/L (0.7-2.0) 03/18/17 21:10 Calcium 8.0 mg/dL (8.4-10.2) L 03/24/17 05:24 Phosphorus 1.8 mg/dL (2.5-4.5) L 03/24/17 05:24 Magnesium 1.9 mg/dL (1.6-2.3) 03/24/17 05:24 Total Bilirubin 1.0 mg/dL (0.2-1.3) 03/19/17 03:12 AST 40 U/L (17-59) 03/19/17 03:12 ALT 50 U/L (21-72) 03/19/17 03:12 Alkaline Phosphatase 147 U/L (38-126) H 03/19/17 03:12 Troponin I 0.013 ng/mL (0.000-0.034) 03/19/17 03:12 Total Protein 5.9 g/dL (6.3-8.2) L 03/19/17 03:12 Albumin 3.0 g/dL (3.5-5.0) L 03/19/17 03:12 Urine Color Yellow 03/18/17 21:50 Urine Appearance Clear (Clear) 03/18/17 21:50 Urine pH 6.0 (5.0-8.0) 03/18/17 21:50 Ur Specific [place] 1.029 (1.001-1.035) 03/18/17 21:50 Urine Protein Trace (Negative) H 03/18/17 21:50 Urine Glucose (UA) Negative (Negative) 03/18/17 21:50 Urine Ketones Negative (Negative) 03/18/17 21:50 Urine Blood Negative (Negative) 03/18/17 21:50 Urine Nitrite Negative (Negative) 03/18/17 21:50 Urine Bilirubin Negative (Negative) 03/18/17 21:50 Urine Urobilinogen <2.0 mg/dL (<2.0) 03/18/17 21:50 Ur Leukocyte Esterase Negative (Negative) 03/18/17 21:50 Vancomycin Trough 21.8 ug/mL 03/23/17 23:16 Blood Type O Negative 03/18/17 17:47 Blood Type Recheck No 03/18/17 17:47 Antibody Screen NEGATIVE 03/18/17 17:47 Crossmatch See Detail 03/18/17 17:47 Transfuse Platelets 03/24/17 03/24/17 08:53 Spec Expiration Date 03/21/2017 - 230903/18/17 17:47 Microbiology 03/22/17 12:17 Sputum Gram Stain - Final 03/22/17 12:17 Sputum Sputum Culture - Final 03/18/17 21:10 Blood Blood Culture - Preliminary No Growth after 120 hours 03/21/17 11:35 Groin Gram Stain - Final 03/21/17 11:35 Groin Wound Culture - Final Methicillin resist S. aureus 03/20/17 12:22 Abdomen Gram Stain - Final 03/20/17 12:22 Abdomen Wound Culture - Final Methicillin resist S. aureus Enterococcus faecalis 03/18/17 21:50 Urine,Voided Urine Culture - Final - Imaging and Cardiology Chest x-ray: report reviewed, image reviewed (LLL infiltrate persitis) Assessment and Plan (1) Febrile neutropenia Narrative/Plan: 76-year-old male presents the emergency center with evidence of feeling quite poorly. Having increasing difficulties with swallowing due to significant pain. Has evidence of some radiation esophagitis as well as mucositis at this time. Has had some response to Dilaudid and cool solution. These will continue. Oncology is following. Radiation oncology also following. Emollient can be applied to the irritation to the skin For the febrile neutropenia antibiotic therapy with cefepime and vancomycin is being utilized because of the extensive mucositis vancomycin is indicated. Cultures are in process Supportive care Fluid resuscitation is occurring Patient has multiple small skin lesions likely related to the current chemotherapy. They are not necrotic and do not appear to be ecthyma gangrenosum at this time, more blisterlike. Given her irritation symptoms and can be applied to these areas and when improved the hydrocolloid can be utilized. Cultures are processing being monitored. Given the significant mucositis in fever the patient is at risk of underlying fungal infection and with this micafungin is utilized. Albumin is low attritional supplementation and process Patient has now been intubated and is being sedated which allowed significant improvement of his discomfort. There is evidence of the multiple lesions to his skin. With his low white count he is not having an aggressive immune response. MRSA isolated. He is receiving appropriate antibiotic therapy. No evidence of any grossly necrotic material. The left thigh ulcer has a small area of some eschar. Does not have the appearance of ecthyma gangrenosum at this time. Duoderm applied Status: Acute (2) Small cell lung cancer Status: Chronic (3) Atrial flutter with rapid ventricular response Status: Acute (4) Anemia Status: Acute
[2017-03-24 23:23] LABS: Glucose,Whole Blood 140 mg/dL (75-99)
[2017-03-25 01:44] LABS: Anion Gap 9 mmol/L; Blood Urea Nitrogen 20 mg/dL (9-20); Calcium 8.1 mg/dL (8.4-10.2); Carbon Dioxide 18 mmol/L (22-30); Glucose 133 mg/dL (74-99); Non-African American GFR(MDRD) >60 (>60 ml/min/1.73 sqM); Phosphorous 2.5 mg/dL (2.5-4.5); Potassium 3.6 mmol/L (3.5-5.1); Sodium 147 mmol/L (137-145)
[2017-03-25 01:48] LABS: Chloride 120 mmol/L (98-107)
[2017-03-25] MEDS ORDERED: Potassium Replacement Protocol 1 EACH MISC MISCELLANE PRN ×2 (02:25→08:13)
[2017-03-25] MEDS: PROPOFOL 500 MG in EMPTY BAG 1 BAG IV SCH ×5 (02:31→21:14)
[2017-03-25] MEDS ORDERED: POTASSIUM CHLORIDE ORAL LIQUID 40 MEQ/30 ML CUP NG-TUBE SCH (03:00)
[2017-03-25] MEDS: SODIUM CHLORIDE 0.9% 1,000 ML IV SCH ×3 (03:00→21:15)
[2017-03-25 06:02] LABS: CH 33.2; HCT 22.4 % (39.0-53.0); HDW 3.35; HGB 7.8 gm/dL (13.0-17.5); MCH 34.3 pg (25.0-35.0); Mean Platelet Volume 7.2; RBC 2.28 m/uL (4.30-5.90); RDW 14.7 % (11.5-15.5); WBC (Perox) 0.89
[2017-03-25 06:15] LABS: Anion Gap 9 mmol/L; Blood Urea Nitrogen 19 mg/dL (9-20); Calcium 8.2 mg/dL (8.4-10.2); Carbon Dioxide 18 mmol/L (22-30); Chloride 119 mmol/L (98-107); Glucose 134 mg/dL (74-99); Magnesium 1.9 mg/dL (1.6-2.3); Non-African American GFR(MDRD) >60 (>60 ml/min/1.73 sqM); Phosphorous 2.2 mg/dL (2.5-4.5); Potassium 3.4 mmol/L (3.5-5.1); Sodium 146 mmol/L (137-145)
[2017-03-25 06:24] LABS: Glucose,Whole Blood 129 mg/dL (75-99)
[2017-03-25] MEDS: METOPROLOL TARTRATE 5 MG/5 ML VIAL IVP SCH ×3 (06:27→17:10)
[2017-03-25] MEDS: INSULIN LISPRO (humaLOG) 300 UNIT/3 ML VIAL SQ SCH ×3 (06:27→17:12)
[2017-03-25 07:07] LABS: WBC 0.8 k/uL (3.8-10.6)
[2017-03-25] MEDS: SYMBICORT 160-4.5 MCG INHALER INHALATION SCH (07:29)
[2017-03-25] MEDS: IPRATROPIUM-ALBUTEROL 3 ML NEB INHALATION SCH ×4 (07:29→19:12)
[2017-03-25 07:44] LABS: Add Differential Manual Differential
[2017-03-25] MEDS: PANTOPRAZOLE 40 MG/10 ML VIAL IV SCH ×2 (08:14→16:38)
[2017-03-25] MEDS: CEFEPIME 2 GM in SODIUM CHLORIDE 0.9% 50 ML IVPB SCH ×2 (08:15→16:37)
[2017-03-25] MEDS: CHLORHEXIDINE GLUCONATE 15 ML CUP MUCOUS MEM SCH ×2 (08:16→21:14)
[2017-03-25] MEDS: SPIRONOLACTONE 25 MG TAB PO SCH (08:18)
[2017-03-25] MEDS: GABAPENTIN 300 MG CAP PO SCH ×4 (08:19→21:16)
[2017-03-25] MEDS: DOCUSATE ORAL SOLN 100 MG/10 ML CUP PO SCH ×3 (08:19→21:15)
[2017-03-25] MEDS: FERROUS SULFATE 325 MG TAB PO SCH (08:19)
[2017-03-25] MEDS: CHOLECALCIFEROL 1,000 UNIT TAB PO SCH (08:19)
[2017-03-25] MEDS: ATORVASTATIN 80 MG TAB PO SCH (08:19)
[2017-03-25] MEDS: MULTIVITAMINS, THERA 1 EACH TAB PO SCH (08:20)
[2017-03-25] MEDS: MAG HYDROX/AL HYDROX/SIMETH 30 ML, LIDOCAINE VISCOUS 30 ML, diphenhydrAMINE ELIXIR 75 M... PO SCH ×12 (08:20→21:16)
[2017-03-25] MEDS: PYRIDOXINE 50 MG TAB PO SCH (08:21)
[2017-03-25] MEDS: OXYBUTYNIN CHLORIDE 5 MG TAB PO SCH ×4 (08:21→21:16)
[2017-03-25] MEDS: VITAMIN E (DL,TOCOPHERYL ACET) 400 UNIT CAP PO SCH (08:21)
[2017-03-25] MEDS: ZINC OXIDE 20% OINT 28.4 GM TUBE TOPICAL SCH ×3 (08:21→21:16)
[2017-03-25] MEDS ORDERED: Magnesium Replacement Protocol 1 EACH MISC MISCELLANE PRN (08:26)
[2017-03-25] MEDS: VANCOMYCIN 1,500 MG in SODIUM CHLORIDE 0.9% 250 ML IVPB SCH (08:29)
--- NOTE | 2017-03-25 08:36 | XR ---
EXAMINATION TYPE: XR chest 1V portable DATE OF EXAM: 03/25/2017 6:39 AM COMPARISON: 03/24/2017 HISTORY: Tube placement FINDINGS: There are bilateral pleural effusions with cardiomegaly and bibasilar infiltrate. There is a diffuse interstitial pattern. Cardiac device, postsurgical changes are stable. ET and NG tube stable. Arthropathy of the shoulders. IMPRESSION: 1. Stable bilateral postoperative consolidation and pleural effusion. Mild central venous congestion not excluded. 2. ET tube stable in position approximately 4 cm above ela.
[2017-03-25 08:42] LABS: ABG PH 7.43 (7.35-7.45)
[2017-03-25 08:43] LABS: ABG Base Excess -5.7 mmol/L; ABG HCO3 18 mmol/L (21-25); ABG PCO2 27 mmHg (35-45); ABG PO2 110 mmHg (83-108); ABG TCO2 19 mmol/L (19-24)
[2017-03-25 12:19] LABS: Glucose,Whole Blood 122 mg/dL (75-99)
[2017-03-25] MEDS: MAGNESIUM SULFATE-D5W PMX 1 GM in DEXTROSE/WATER 1 100ML.BAG IVPB SCH ×2 (12:19→14:27)
[2017-03-25] MEDS: POTASSIUM CHLORIDE ORAL LIQUID 40 MEQ/30 ML CUP NG-TUBE SCH ×2 (12:19→14:27)
[2017-03-25] MEDS: HYDROCORTISONE 1% CREAM 454 GM JAR TOPICAL SCH ×2 (12:20→21:14)
--- NOTE | 2017-03-25 13:48 | P.PN ---
Subjective Patient is a 76-year-old male, patient of Dr. Mulligan in the outpatient setting, with medical history significant for paroxysmal atrial fibrillation, GERD, hyperlipidemia, hypertension, coronary artery disease status post coronary artery bypass grafting in 2014 followed by stenting to the left SFA in August 2015, myocardial infarction, ischemic cardiomyopathy status post placement of internal cardiac defibrillator, prostate cancer status post prostatectomy in 1998, peripheral vascular disease status post stent placement to left lower extremity, osteoarthritis, severe peripheral neuropathy, and remote nicotine dependence. 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 Per chart and daughter, patient had been experiencing trouble with swallowing and increased shortness of breath over the last couple of days prior to admission in addition to having generalized weakness, fatigue, and shakiness. Patient originally presented to [facility] where he underwent a CTA of the chest with evidence of cardiomegaly, right upper lung nodule and right hilar invasive mass with thoracic adenopathy; and moderate to severe thickening of the mid esophagus. Patient was transferred to [facility]. In the emergency department, patient was found to have evidence of febrile neutropenia and pancytopenia with evidence of acute renal failure. Patient was admitted to the intensive care unit and consults were requested for Dr. Figueroa for oncology service , Dr. Courtney for pulmonary service, cardiology service, and Dr. oGmez for infectious disease service. While in the intensive care unit, patient's respiratory status declined requiring ventilatory support. Patient did have positive wound cultures for MRSA for blister type wounds. Patient is evaluated in the intensive care unit where he is remains intubated and sedated on mechanical ventilation. Patient has not needed any use of vasopressors for hemodynamic stability. Urine output adequate. Patient is tolerating tube feeds. No plans for weaning today. Chest x-ray from today with stable bilateral postoperative consolidation and pleural effusion; mild central venous congestion not excluded. WBC increased to 0.8. Hemoglobin decreased to 7.8. Platelets increased to 53. Sodium 147. Potassium 3.6. Objective - Vital Signs Vital signs: Vital Signs Temp 98.2 F 03/25/17 08:00 Pulse 121 H 03/25/17 13:00 Resp 29 H 03/25/17 13:00 BP 152/81 03/25/17 13:00 Pulse Ox 97 03/25/17 13:00 Intake & Output 03/24/17 03/25/17 03/25/17 18:59 06:59 18:59 Intake Total 3003 2790.52 1435 Output Total 970 3260 2045 Balance 2033 -469.48 -610 Weight 95.1 kg 95.1 kg 95.1 kg Intake: Intake, IV Titration 1100 1327.52 1000 Amount Cefepime 2 gm In Sodium 50 Chloride 0.9% 50 ml @ 100 mls/hr IVPB Q8H ERNESTO Rx#: [id number] Magnesium Sulfate-D5w Pmx 200 1 gm In Dextrose/Water 1 100ml.bag @ 100 mls/hr IVPB Q1H ERNESTO Rx#: [id number] Micafungin 100 mg In 100 Sodium Chloride 0.9% 100 ml @ 100 mls/hr IVPB DAILY@1800 ERNESTO Rx#: [id number] Potassium Phosphate 10 250 mmol In Sodium Chloride 0 .9% 250 ml @ 125 mls/hr IV Q2H ERNESTO Rx#:[id number] Propofol 500 mg In Empty 150 177.52 50 Bag 1 bag @ Titrate IV . Q0M ERNESTO Rx#:[id number] Sodium Chloride 0.9% 1, 900 900 525 000 ml @ 75 mls/hr IV . [id number] ERNESTO Rx#:[id number] Vancomycin 1,500 mg In 125 Sodium Chloride 0.9% 250 ml @ 125 mls/hr IVPB Q16H ERNESTO Rx#:[id number] Oral 30 Tube Feeding 630 360 210 Blood Product 598 598 Platelet Pheresis Acda 598 Unit [id number] Other 675 475 225 Output: Urine 970 3260 1045 Emesis 1000 Other: Voiding Method Indwelling Catheter Indwelling Catheter Indwelling Catheter # Voids 1 # Bowel Movements 0 0 - Exam GENERAL: Pt is sedated on the ventilator. HEAD: Atraumatic, normocephalic. EYES: Pupils equal, round, and reactive to light, sclera anicteric, conjunctiva are normal. ENT: Moist mucous membranes. NECK: Supple without lymphadenopathy or JVD. Trachea midline. LUNGS: Breath sounds diminished to throughout lung kohler. HEART: Heart S1, S2, no S3 or S4. Regular irregular. No murmurs, rubs or gallops. ABDOMEN: Soft, nondistended, normoactive bowel sounds. No guarding, no rebound. No masses or organomegaly appreciated. EXTREMITIES: 1+ peripheral pulses. 1+ Peripheral edema to upper and lower extremities. NEUROLOGICAL: Pt sedated. SKIN: Warm, dry. - Labs CBC & Chem 7: 03/25/17 05:22 03/25/17 05:22 Labs: Abnormal Lab Results - Last 24 Hours (Table) 03/24/17 03/24/17 03/24/17 Range/Units 05:24 19:39 23:21 WBC (3.8-10.6) k/uL RBC (4.30-5.90) m/uL Hgb (13.0-17.5) gm/dL Hct (39.0-53.0) % Plt Count (150-450) k/uL ABG pCO2 (35-45) mmHg ABG pO2 (83-108) mmHg ABG HCO3 (21-25) mmol/L ABG O2 Saturation (94-97) % Sodium (137-145) mmol/L Potassium (3.5-5.1) mmol/L Chloride (98-107) mmol/L Carbon Dioxide (22-30) mmol/L Glucose (74-99) mg/dL POC Glucose (mg/dL) 146 H 140 H (75-99) mg/dL Hemoglobin A1c 6.3 H (4.2-6.1) % Calcium (8.4-10.2) mg/dL Phosphorus (2.5-4.5) mg/dL Crossmatch 03/25/17 03/25/17 03/25/17 Range/Units 00:36 05:22 05:22 WBC 0.8 L* (3.8-10.6) k/uL RBC 2.28 L (4.30-5.90) m/uL Hgb 7.8 L (13.0-17.5) gm/dL Hct 22.4 L (39.0-53.0) % Plt Count 53 L D (150-450) k/uL ABG pCO2 (35-45) mmHg ABG pO2 (83-108) mmHg ABG HCO3 (21-25) mmol/L ABG O2 Saturation (94-97) % Sodium 147 H 146 H (137-145) mmol/L Potassium 3.4 L (3.5-5.1) mmol/L Chloride 120 H* 119 H (98-107) mmol/L Carbon Dioxide 18 L 18 L (22-30) mmol/L Glucose 133 H 134 H (74-99) mg/dL POC Glucose (mg/dL) (75-99) mg/dL Hemoglobin A1c (4.2-6.1) % Calcium 8.1 L 8.2 L (8.4-10.2) mg/dL Phosphorus 2.2 L (2.5-4.5) mg/dL Crossmatch 03/25/17 03/25/17 03/25/17 Range/Units 06:22 08:25 09:56 WBC (3.8-10.6) k/uL RBC (4.30-5.90) m/uL Hgb (13.0-17.5) gm/dL Hct (39.0-53.0) % Plt Count (150-450) k/uL ABG pCO2 27 L (35-45) mmHg ABG pO2 110 H (83-108) mmHg ABG HCO3 18 L (21-25) mmol/L ABG O2 Saturation 99.0 H (94-97) % Sodium (137-145) mmol/L Potassium (3.5-5.1) mmol/L Chloride (98-107) mmol/L Carbon Dioxide (22-30) mmol/L Glucose (74-99) mg/dL POC Glucose (mg/dL) 129 H (75-99) mg/dL Hemoglobin A1c (4.2-6.1) % Calcium (8.4-10.2) mg/dL Phosphorus (2.5-4.5) mg/dL Crossmatch See Detail 03/25/17 Range/Units 12:18 WBC (3.8-10.6) k/uL RBC (4.30-5.90) m/uL Hgb (13.0-17.5) gm/dL Hct (39.0-53.0) % Plt Count (150-450) k/uL ABG pCO2 (35-45) mmHg ABG pO2 (83-108) mmHg ABG HCO3 (21-25) mmol/L ABG O2 Saturation (94-97) % Sodium (137-145) mmol/L Potassium (3.5-5.1) mmol/L Chloride (98-107) mmol/L Carbon Dioxide (22-30) mmol/L Glucose (74-99) mg/dL POC Glucose (mg/dL) 122 H (75-99) mg/dL Hemoglobin A1c (4.2-6.1) % Calcium (8.4-10.2) mg/dL Phosphorus (2.5-4.5) mg/dL Crossmatch Microbiology - Last 24 Hours (Table) 03/18/17 21:10 Blood Culture - Final Blood No Growth after 144 hours Assessment and Plan Plan: Impression: 1. Neutropenic sepsis suspect secondary to recent chemotherapy and radiation for limited stage small cell lung carcinoma post chemoradiation therapy. Wound cultures positive for MRSA. Patient has received one session of systemic chemotherapy with carboplatinum and APPOINTMENT COORDINATOR-16 and 10 sessions of radiation therapy. 2. Pancytopenia suspect secondary to anti-neoplastic chemotherapy. 3. Atrial flutter with rapid ventricular response. 4. Acute renal failure, present on admission, suspect secondary to hypovolemia and hypoperfusion, secondary to dehydration, resolved. 5. Elevated blood sugars on admission. 6. Elevated alkaline phosphatase, present on admission. 7. Dysphagia, present on admission, suspect secondary to esophagitis and mucositis secondary to recent chemotherapy and radiation with possibility of Traci esophagitis. 8. Chronic renal failure, stage III. 9. Paroxysmal atrial fibrillation maintained on Eliquis in the outpatient setting. 10. Hyperlipidemia. 11. Hypertension. 12. History of ischemic cardiomyopathy status post AICD placement. Ejection fraction 35%. 13. Coronary artery disease status post coronary artery bypass grafting followed by stenting. 14. History of prostate cancer status post prostatectomy. 15. History of GERD. 16. Severe peripheral vascular disease status post stenting to right lower extremity. 17. Severe peripheral neuropathy. 18. Osteoarthritis. 19. History of anxiety and depression, stable. 20. History of nicotine dependence. 21. Acute respiratory failure secondary to above mentioned comorbidities currently intubated on a mechanical ventilator. Plan: Transfuse 1 unit of PRBC for hemoglobin of 7.8. Continue IV antibiotics for empiric coverage. Continue current medications. Continue supportive treatment. Continue to follow with consultants. Continue GI and DVT prophylaxis. Repeat CBC, CMP, magnesium and phosphorus in a.m. The above impression and plan have been discussed and directed by Dr. Mulligan. Carmel LACEY acting as scribe for Isaak.
[2017-03-25 15:19] LABS: ABG Base Excess -5.8 mmol/L; ABG HCO3 18 mmol/L (21-25); ABG PCO2 26 mmHg (35-45); ABG PH 7.44 (7.35-7.45); ABG PO2 94 mmHg (83-108); ABG TCO2 18 mmol/L (19-24)
[2017-03-25] MEDS: HYDROmorphone 1 MG/ML 1 ML SYRINGE IVP PRN ×2 (15:31→21:13)
--- NOTE | 2017-03-25 16:10 | P.PN ---
Subjective Principal diagnosis: Acute neutropenic sepsis and respiratory failure 76-year-old male patient who is quite ill and he comes into the hospital because of various medical problems and chronic shortness of breath and difficulty in swallowing and chest congestion and generalized weakness and fatigue. The patient also had limited changes in his mentation. Note that the patient has history of coronary artery disease and he has undergone previous carotid bypass surgery 2014. 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 He has also peripheral vascular disease and has undergone stenting of the left lower extremity. He was recently diagnosed having small cell lung cancer. Diagnosed was established by bronchoscopy as the patient was found to have endobronchial tumor and based on the limited staging of the small cell lung cancer the patient was referred to radiation oncology and hematology oncology. A patient was started on radiation therapy and he was given a total of 10 sessions of radiation therapy and he has another 10 sessions to go. He was also given the first session of systemic chemotherapy with a combination of carboplatinum and TEA BLENDER-16. Note that the patient was doing well to around a few days ago and he started developing worsening in his mucositis and swallowing. His chest started becoming more congested. He was unable to swallow. He became progressively more weak and dehydrated. The family and himself denied any episodes of aspiration. He denied having any nausea vomiting or diarrhea. He reported burning sensation in his upper chest. At the same time he has noted some purulent nodules arising in his groin and suprapubic area. These are small nodular lesions that are measuring 1-2 cm in size which have some central purulent material draining. No dysuria. No frequency. No urgency. He still producing urine output. In the burst department the patient was found to be also in atrial fibrillation with rapid ventricular response and he was started on IV heparin and IV Cardizem. Rate is still tachycardic in the 120 range. At the same time the patient was found to be neutropenic and pancytopenic. His white cell count was at 0.2. He is single was 8.4. His platelet count at 48, 000. His creatinine was at 1.2. The patient was started on IV fluids. He was given IV fluid boluses and currently is on any normal saline infusion rate of 1 25 mL an hour. The patient is also on a combination of cefepime and vancomycin. No fever at this point. No headache. No neck stiffness. On 03/20/2017 I'm seeing this patient in follow-up in the intensive care unit. He is doing slightly better. Still unable to swallow and still having burning sensation in his throat and upper chest related to severe mucositis. He is afebrile. He is hemodynamically stable. He is on broad-spectrum antibiotics. All of the cultures of been negative. Still pancytopenic and the white cell count today is at 0.3 with a hemoglobin of 8.7 and platelet count of 23,000. He is still in atrial fibrillation with rate being controlled. He is on no anti -coagulation based on his underlying thrombocytopenia. He has a component of non-anion gap metabolic acidosis. His bicarb level is at 17. CAT scan of the brain was done today and the patient had shown mild diffuse cerebral atrophy with mild to moderate chronic small vessel ischemic changes. No other enhancing lesions. Family is at the bedside. The patient is lethargic and still profoundly weak. On 03/21/2017 I'm seeing this patient in follow-up in the intensive care units. Very much delirious and overnight very much agitated for which she was given Haldol and Ativan. Bit more comfortable and calm her today this morning. Family is at the bedside. Remains profoundly pancytopenic without any major recovery in his hematologic profile. Afebrile and hemodynamically stable covered with broad-spectrum antibiotics. All of the cultures have not indicated any specific microbial growth for now. ID is on the case. The pustules and the groin and suprapubic area remains unchanged. There are several of them at least 6 and only a few had some purulent center which seems to be much more dried up on today's evaluation. No bleeding. Platelet counts have dropped down to 13,000. Vancomycin trough is at 17.8. On 03/22/2017 I'm seeing this patient in follow-up. The patient is quite lethargic. He was agitated throughout the night. He had required several doses of Haldol and Ativan. He is per much sedated at this point and seems to be more comfortable. I was told that overnight he was very agitated and difficult to control. He is on 2 point restraints at this point. Hematologically, the patient is still pancytopenic and he still being treated for neutropenic fevers. He has a white cell count of 0.4 with a hemoglobin of 7.7 and platelet count of 17,000. He is afebrile. 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 Blood cultures of been negative. Urine culture been negative. The patient is on no pressors. The patient is still on a combination of cefepime and vancomycin and micafungin regarding his neutropenic sepsis. ID is on the case. On 03/23/2017, the patient remains intubated on the mechanical ventilator. The patient sedated with Diprivan. The patient currently is an assist-control mode of ventilation, etc. rate of 20, tidal volume of 500, FiO2 of 40% and a PEEP of 5. The blood gases from this morning showed a pH of 7.37 with a pCO2 of 25 and pO2 of 144. The patient's chest x-ray shows a small right-sided pleural effusion. ET tube is in a good location. The patient is well sedated. The patient is receiving enteral feeding for nutritional support. The patient is on no pressors at this point and he is hemodynamically stable. The patient has been found to have MRSA in the suprapubic pustules and the patient is currently on a combination of vancomycin, Zosyn and micafungin. He remains pancytopenic and there is no improvement in his hematologic profile. White cell count remains at 0.5 with a hemoglobin of 8.6 and a platelet count of 12,000. CAT scan of the bilateral lower extremity was done yesterday and the patient has some enlarged left exterior iliac chain lymph nodes as well as bilateral prominent but nonenlarged inguinal femoral lymph node chains. There is some focal inflammatory changes along the anterior right groin area likely representing an area of cellulitis. No abscesses could be found. No evidence of any necrotizing fasciitis at this point. The patient is tolerating his tube feeds. He is calm and comfortable at this point. No other significant events overnight. On 03/24/2017, patient remains intubated, on mechanical ventilation. His ventilator settings were reviewed, FiO2 is 30%, assist control rate of 20 tidal volume of 500 and PEEP of 5. ABG showed a pO2 of 156 pCO2 of 25 pH of 7.40. Other labs were reviewed, WBC count remains low at 0.4, hemoglobin is 8.3, platelets are 11,000. Basic metabolic profile showed sodium of 145 chloride is 121 patient has a hyperchloremic metabolic acidosis non-anion gap. Chest x-ray showed mild cardiomegaly and left basilar air space disease with small bilateral pleural effusions. Antibiotics remain to include cefepime, micafungin , and vancomycin. Patient remains sedated on propofol drip, hemodynamically seems to be relatively stable. Wound culture has been positive for methicillin staph aureus and Enterococcus faecalis. Both are sensitive to vancomycin. Patient was reevaluated today on 03/25/2017, remains intubated, on mechanical ventilation, his weaning parameters were noted to be poor today, and his respirator rate on CPAP was in the high 50s. Hence no further attempts of weaning was made. ABG showed a pO2 of 94 pCO2 of 26 pH of 7.44. His vent settings are tidal volume of 500 FiO2 of 30% assist control rate of 16 and PEEP is 5. Chest x-ray showed stable by basilar atelectasis or infiltrates. And mild central venous congestion. All labs were reviewed, WBC count is 0.8 today , hemoglobin is 7.8 sodium is 147 chloride is 120 bicarb is 18, renal profile is normal. Patient was earlier on propofol drip, however he was noted to be appropriate when the propofol was discontinued, and a short the CPAP trial was given. Objective - Vital Signs Vital signs: Vital Signs Temp 98.8 F 03/25/17 15:16 Pulse 137 H 03/25/17 15:33 Resp 25 H 03/25/17 15:16 BP 156/80 03/25/17 15:16 Pulse Ox 98 03/25/17 15:16 Intake & Output 03/24/17 03/25/17 03/25/17 18:59 06:59 18:59 Intake Total 3003 2790.52 1585 Output Total 970 3260 2745 Balance 2033 -469.48 -1160 Weight 95.1 kg 95.1 kg 95.1 kg Intake: Intake, IV Titration 1100 1327.52 1150 Amount Cefepime 2 gm In Sodium 50 Chloride 0.9% 50 ml @ 100 mls/hr IVPB Q8H ER[facility] Rx#: [id number] Magnesium Sulfate-D5w Pmx 200 1 gm In Dextrose/Water 1 100ml.bag @ 100 mls/hr IVPB Q1H [facility] Rx#: [id number] Micafungin 100 mg In 100 Sodium Chloride 0.9% 100 ml @ 100 mls/hr IVPB DAILY@1800 ERNESTO Rx#: [id number] Potassium Phosphate 10 250 mmol In Sodium Chloride 0 .9% 250 ml @ 125 mls/hr IV Q2H [facility] Rx#:[id number] Propofol 500 mg In Empty 150 177.52 50 Bag 1 bag @ Titrate IV . Q0M [facility] Rx#:[id number] Sodium Chloride 0.9% 1, 900 900 675 000 ml @ 75 mls/hr IV . [id number] [facility] Rx#:[id number] Vancomycin 1,500 mg In 125 Sodium Chloride 0.9% 250 ml @ 125 mls/hr IVPB Q16H [facility] Rx#:[id number] Oral 30 Tube Feeding 630 360 210 Blood Product 598 598 0 Platelet Pheresis Acda 598 Unit [id number] Rc As-1 Unit 0 [id number] Other 675 475 225 Output: Urine 970 3260 1745 Emesis 1000 Other: Voiding Method Indwelling Catheter Indwelling Catheter Indwelling Catheter # Voids 1 # Bowel Movements 0 0 - Exam The patient is intubated on a mechanical ventilator sedated and calm and comfortable. Gastric and orotracheal tube are both in place. Head exam was generally normal. There was no scleral icterus or corneal arcus. Mucous membranes were moist. Mucous membranes are dry. There is no oropharyngeal thrush seen. No open ulceration in the mucous membranes. Lung sounds are diminished and there is some scattered rhonchi and crackles heard throughout the lung his bilaterally. Heart sounds are irregular, possible sinus stool, no cervical murmurs appreciated.Abdominal exam revealed normal bowel sounds. The abdomen was soft, non-tender, and without masses, organomegaly, or appreciable enlargement of the abdominal aorta. This groin area shows no other pustular lesions several of them the largest measuring 2 cm in size with central purulent material. Extremities show no edema no cyanosis or clubbing at the pulses are diminished. Neurologically patient is sedated. - Labs CBC & Chem 7: 03/25/17 05:22 03/25/17 05:22 Labs: Abnormal Lab Results - Last 24 Hours (Table) 03/24/17 03/24/17 03/24/17 Range/Units 05:24 19:39 23:21 WBC (3.8-10.6) k/uL RBC (4.30-5.90) m/uL Hgb (13.0-17.5) gm/dL Hct (39.0-53.0) % Plt Count (150-450) k/uL ABG pCO2 (35-45) mmHg ABG pO2 (83-108) mmHg ABG HCO3 (21-25) mmol/L ABG Total CO2 (19-24) mmol/L ABG O2 Saturation (94-97) % Sodium (137-145) mmol/L Potassium (3.5-5.1) mmol/L Chloride (98-107) mmol/L Carbon Dioxide (22-30) mmol/L Glucose (74-99) mg/dL POC Glucose (mg/dL) 146 H 140 H (75-99) mg/dL Hemoglobin A1c 6.3 H (4.2-6.1) % Calcium (8.4-10.2) mg/dL Phosphorus (2.5-4.5) mg/dL Crossmatch 03/25/17 03/25/17 03/25/17 Range/Units 00:36 05:22 05:22 WBC 0.8 L* (3.8-10.6) k/uL RBC 2.28 L (4.30-5.90) m/uL Hgb 7.8 L (13.0-17.5) gm/dL Hct 22.4 L (39.0-53.0) % Plt Count 53 L D (150-450) k/uL ABG pCO2 (35-45) mmHg ABG pO2 (83-108) mmHg ABG HCO3 (21-25) mmol/L ABG Total CO2 (19-24) mmol/L ABG O2 Saturation (94-97) % Sodium 147 H 146 H (137-145) mmol/L Potassium 3.4 L (3.5-5.1) mmol/L Chloride 120 H* 119 H (98-107) mmol/L Carbon Dioxide 18 L 18 L (22-30) mmol/L Glucose 133 H 134 H (74-99) mg/dL POC Glucose (mg/dL) (75-99) mg/dL Hemoglobin A1c (4.2-6.1) % Calcium 8.1 L 8.2 L (8.4-10.2) mg/dL Phosphorus 2.2 L (2.5-4.5) mg/dL Crossmatch 03/25/17 03/25/17 03/25/17 Range/Units 06:22 08:25 09:56 WBC (3.8-10.6) k/uL RBC (4.30-5.90) m/uL Hgb (13.0-17.5) gm/dL Hct (39.0-53.0) % Plt Count (150-450) k/uL ABG pCO2 27 L (35-45) mmHg ABG pO2 110 H (83-108) mmHg ABG HCO3 18 L (21-25) mmol/L ABG Total CO2 (19-24) mmol/L ABG O2 Saturation 99.0 H (94-97) % Sodium (137-145) mmol/L Potassium (3.5-5.1) mmol/L Chloride (98-107) mmol/L Carbon Dioxide (22-30) mmol/L Glucose (74-99) mg/dL POC Glucose (mg/dL) 129 H (75-99) mg/dL Hemoglobin A1c (4.2-6.1) % Calcium (8.4-10.2) mg/dL Phosphorus (2.5-4.5) mg/dL Crossmatch See Detail 03/25/17 03/25/17 Range/Units 12:18 15:12 WBC (3.8-10.6) k/uL RBC (4.30-5.90) m/uL Hgb (13.0-17.5) gm/dL Hct (39.0-53.0) % Plt Count (150-450) k/uL ABG pCO2 26 L (35-45) mmHg ABG pO2 (83-108) mmHg ABG HCO3 18 L (21-25) mmol/L ABG Total CO2 18 L (19-24) mmol/L ABG O2 Saturation 98.0 H (94-97) % Sodium (137-145) mmol/L Potassium (3.5-5.1) mmol/L Chloride (98-107) mmol/L Carbon Dioxide (22-30) mmol/L Glucose (74-99) mg/dL POC Glucose (mg/dL) 122 H (75-99) mg/dL Hemoglobin A1c (4.2-6.1) % Calcium (8.4-10.2) mg/dL Phosphorus (2.5-4.5) mg/dL Crossmatch Microbiology - Last 24 Hours (Table) 03/18/17 21:10 Blood Culture - Final Blood No Growth after 144 hours Assessment and Plan Plan: 1 neutropenic sepsis. The patient is afebrile however he has very source of infection at these to be considered including the lungs, esophagitis and no other pustular lesions in the suprapubic and inguinal area which could be potentially staphylococcal or fungal. 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 The patient remains on a combination of cefepime, vancomycin and micafungin. 2 limited stage small cell lung cancer status post chemoradiation therapy. The patient has received one session of systemic chemotherapy with carboplatinum and TEA BLENDER-16 and 10 sessions of radiation therapy 3 esophagitis/mucositis secondary to radiation therapy with secondary difficulty in swallowing. Rule out candidal esophagitis 4 pancytopenia secondary to chemotherapy. . The patient remains profoundly neutropenic with a white cell count of 0.5. The patient is receiving Zarxio 5 paroxysmal atrial fibrillation, currently in sinus tachycardia 6 CHF with an ejection fraction of 35% 7 coronary artery disease with multivessel involvement and the patient is status post carotid bypass surgery 8 history of AICD placement 9 dysphagia, currently nothing by mouth 10 acute kidney injury, improved in the creatinine normalized 11 peripheral vascular disease with previous vascular intervention of the left lower extremity 12 prostate cancer status post prostatectomy 13 severe peripheral neuropathy 14 depression/anxiety 15 coronary artery bypass surgery, history of 16 acute respiratory failure secondary to above-mentioned comorbidities currently intubated on a mechanical ventilator. 17 hyperchloremic hypernatremia and the patient is receiving free water flushes Recommendation: Continue present supportive care measures including mechanical ventilation, nutritional support, hemodynamic support if necessary, antibiotics , continue to monitor hematologic profile, shortness attempt of placing the patient on CPAP was done, however patient will be placed back on assist control mode of mechanical ventilation, and I plan to give him another trial tomorrow. In the meantime continue all supportive care measures antibiotics, and we'll follow closely. Ventilator settings were adjusted. Prognosis remains guarded, patient remains critically ill, will reevaluate in a.m. Critical care time is 35 minutes. Time with Patient: Greater than 30
[2017-03-25] MEDS: FILGRASTIM-SNDZ 480 MCG/0.8 ML SYRINGE SQ SCH (16:44)
[2017-03-25 17:14] LABS: Glucose,Whole Blood 134 mg/dL (75-99)
[2017-03-25] MEDS: MICAFUNGIN 100 MG in SODIUM CHLORIDE 0.9% 100 ML IVPB SCH (17:36)
[2017-03-25] MEDS ORDERED: METOCLOPRAMIDE 5 MG/ML 2 ML VIAL IVP PRN (18:14)
[2017-03-25 18:55] LABS: Anion Gap 5 mmol/L; Blood Urea Nitrogen 21 mg/dL (9-20); Calcium 8.5 mg/dL (8.4-10.2); Carbon Dioxide 17 mmol/L (22-30); Glucose 120 mg/dL (74-99); Magnesium 2.4 mg/dL (1.6-2.3); Non-African American GFR(MDRD) >60 (>60 ml/min/1.73 sqM); Sodium 147 mmol/L (137-145)
[2017-03-25 18:58] LABS: Chloride 125 mmol/L (98-107)
[2017-03-25 20:18] LABS: Anion Gap 8 mmol/L; Blood Urea Nitrogen 21 mg/dL (9-20); Calcium 8.4 mg/dL (8.4-10.2); Carbon Dioxide 17 mmol/L (22-30); Glucose 119 mg/dL (74-99); Non-African American GFR(MDRD) >60 (>60 ml/min/1.73 sqM); Sodium 147 mmol/L (137-145)
[2017-03-25 20:19] LABS: Chloride 122 mmol/L (98-107)
--- NOTE | 2017-03-25 22:25 | P.PN ---
Subjective Principal diagnosis: Febrile neutropenia 76-year-old male with a known history of small cell lung carcinoma who is been undergoing chemoradiation. Presents emergency center with increasing shortness of breath increasing weakness, increasing fatigue and increasing difficulty with swallowing. He was evaluated by bronchoscopy and endobronchial tumor was noted. She related it was a limited stage small cell lung carcinoma. In counseling and started radiation therapy with concomitant carboplatinum and [employer]-16. 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 Decreasing oral intake and increasing weakness. He now presents with evidence of fever, neutropenia and significant dehydration. He is being transferred from the emergency center to the intensive care unit given his atrial fibrillation and hypotension. He has a long-standing history of coronary artery disease atrial fibrillation as well as BPH chronic renal disease and peripheral vascular disease. Is related that he does have a low ejection fraction of 30-35%. His atrial fibrillation is chronic but his rate was quite elevated earlier. With resuscitation and diltiazem drip he has improved. Was having severe pain with Dilaudid and viscous lidocaine he has had some improvement of his status. Patient's respiratory status continued to decline. Required intubation , He is now quite calm that he has been sedated. Objective - Vital Signs Vital signs: Vital Signs Temp 98.8 F 03/25/17 16:53 Pulse 111 H 03/25/17 19:23 Resp 18 03/25/17 19:00 BP 100/61 03/25/17 19:00 Pulse Ox 100 03/25/17 19:00 Intake & Output 03/25/17 03/25/17 03/26/17 06:59 18:59 06:59 Intake Total 2790.52 2900 153.858 Output Total 3260 3415 175 Balance -469.48 -515 -21.142 Weight 95.1 kg 95.1 kg Intake: Intake, IV Titration 1327.52 1625 123.858 Amount Cefepime 2 gm In Sodium 100 Chloride 0.9% 50 ml @ 100 mls/hr IVPB Q8H [facility] Rx#: [id number] Magnesium Sulfate-D5w Pmx 200 1 gm In Dextrose/Water 1 100ml.bag @ 100 mls/hr IVPB Q1H [facility] Rx#: [id number] Micafungin 100 mg In 200 Sodium Chloride 0.9% 100 ml @ 100 mls/hr IVPB DAILY@1800 [facility] Rx#: [id number] Potassium Phosphate 10 250 mmol In Sodium Chloride 0 .9% 250 ml @ 125 mls/hr IV Q2H [facility] Rx#:[id number] Propofol 500 mg In Empty 177.52 100 48.858 Bag 1 bag @ Titrate IV . Q0M [facility] Rx#:[id number] Sodium Chloride 0.9% 1, 900 900 75 000 ml @ 75 mls/hr IV . [id number] [facility] Rx#:[id number] Vancomycin 1,500 mg In 125 Sodium Chloride 0.9% 250 ml @ 125 mls/hr IVPB Q16H [facility] Rx#:[id number] Oral 30 Tube Feeding 360 340 30 Blood Product 598 310 Rc As-1 Unit 310 [id number] Other 475 625 Output: Urine 3260 2415 175 Emesis 1000 Other: Voiding Method Indwelling Catheter Indwelling Catheter # Voids 1 # Bowel Movements 0 0 - Exam 76-year-old male who appears to be acutely ill. He is now intubated. HEENT: Anicteric conjunctiva are pink and moist nasal mucosa grossly intact without significant lesions, no evidence of bleeding of the oral cavity around the endotracheal tube. Neck: The neck is supple without significant lymphadenopathy or thyromegaly. Lungs: Symmetric air entry is noted. Basilar crackles are noted. Expiratory wheezes are scattered no bronchial sounds Heart: Irregularly irregular rate about 120. Soft S4 no murmur click or rub is noted Abdomen: Positive bowel sounds soft and nontender without palpable masses or organomegaly. There was no guarding or rebound. Extremities: Extremities have some generalized edema.. Neuro: Sedated Skin on the interior aspect of both thighs, as well as anterior aspect of both thighs and lower abdominal wall or multiple small skin lesions that have developed since he's been on chemotherapy. There is some induration around these sites. There is no expressible purulence. Some evidence of some mild erythema to the anterior chest wall as well to his back from initiation of the recent radiation therapy. - Labs CBC & Chem 7: 03/25/17 05:22 03/25/17 19:37 Labs: Abnormal Lab Results - Last 24 Hours (Table) 03/24/17 03/25/17 03/25/17 Range/Units 23:21 00:36 05:22 WBC (3.8-10.6) k/uL RBC (4.30-5.90) m/uL Hgb (13.0-17.5) gm/dL Hct (39.0-53.0) % Plt Count (150-450) k/uL ABG pCO2 (35-45) mmHg ABG pO2 (83-108) mmHg ABG HCO3 (21-25) mmol/L ABG Total CO2 (19-24) mmol/L ABG O2 Saturation (94-97) % Sodium 147 H 146 H (137-145) mmol/L Potassium 3.4 L (3.5-5.1) mmol/L Chloride 120 H* 119 H (98-107) mmol/L Carbon Dioxide 18 L 18 L (22-30) mmol/L BUN (9-20) mg/dL Glucose 133 H 134 H (74-99) mg/dL POC Glucose (mg/dL) 140 H (75-99) mg/dL Calcium 8.1 L 8.2 L (8.4-10.2) mg/dL Phosphorus 2.2 L (2.5-4.5) mg/dL Magnesium (1.6-2.3) mg/dL Crossmatch 03/25/17 03/25/17 03/25/17 Range/Units 05:22 06:22 08:25 WBC 0.8 L* (3.8-10.6) k/uL RBC 2.28 L (4.30-5.90) m/uL Hgb 7.8 L (13.0-17.5) gm/dL Hct 22.4 L (39.0-53.0) % Plt Count 53 L D (150-450) k/uL ABG pCO2 27 L (35-45) mmHg ABG pO2 110 H (83-108) mmHg ABG HCO3 18 L (21-25) mmol/L ABG Total CO2 (19-24) mmol/L ABG O2 Saturation 99.0 H (94-97) % Sodium (137-145) mmol/L Potassium (3.5-5.1) mmol/L Chloride (98-107) mmol/L Carbon Dioxide (22-30) mmol/L BUN (9-20) mg/dL Glucose (74-99) mg/dL POC Glucose (mg/dL) 129 H (75-99) mg/dL Calcium (8.4-10.2) mg/dL Phosphorus (2.5-4.5) mg/dL Magnesium (1.6-2.3) mg/dL Crossmatch 03/25/17 03/25/17 03/25/17 Range/Units 09:56 12:18 15:12 WBC (3.8-10.6) k/uL RBC (4.30-5.90) m/uL Hgb (13.0-17.5) gm/dL Hct (39.0-53.0) % Plt Count (150-450) k/uL ABG pCO2 26 L (35-45) mmHg ABG pO2 (83-108) mmHg ABG HCO3 18 L (21-25) mmol/L ABG Total CO2 18 L (19-24) mmol/L ABG O2 Saturation 98.0 H (94-97) % Sodium (137-145) mmol/L Potassium (3.5-5.1) mmol/L Chloride (98-107) mmol/L Carbon Dioxide (22-30) mmol/L BUN (9-20) mg/dL Glucose (74-99) mg/dL POC Glucose (mg/dL) 122 H (75-99) mg/dL Calcium (8.4-10.2) mg/dL Phosphorus (2.5-4.5) mg/dL Magnesium (1.6-2.3) mg/dL Crossmatch See Detail 03/25/17 03/25/17 03/25/17 Range/Units 17:12 18:32 19:37 WBC (3.8-10.6) k/uL RBC (4.30-5.90) m/uL Hgb (13.0-17.5) gm/dL Hct (39.0-53.0) % Plt Count (150-450) k/uL ABG pCO2 (35-45) mmHg ABG pO2 (83-108) mmHg ABG HCO3 (21-25) mmol/L ABG Total CO2 (19-24) mmol/L ABG O2 Saturation (94-97) % Sodium 147 H 147 H (137-145) mmol/L Potassium 6.0 H (3.5-5.1) mmol/L Chloride 125 H* 122 H* (98-107) mmol/L Carbon Dioxide 17 L 17 L (22-30) mmol/L BUN 21 H 21 H (9-20) mg/dL Glucose 120 H 119 H (74-99) mg/dL POC Glucose (mg/dL) 134 H (75-99) mg/dL Calcium (8.4-10.2) mg/dL Phosphorus (2.5-4.5) mg/dL Magnesium 2.4 H (1.6-2.3) mg/dL Crossmatch Microbiology - Last 24 Hours (Table) 03/18/17 21:10 Blood Culture - Final Blood No Growth after 144 hours Laboratory Results WBC 0.8 k/uL (3.8-10.6) L* 03/25/17 05:22 RBC 2.28 m/uL (4.30-5.90) L 03/25/17 05:22 Hgb 7.8 gm/dL (13.0-17.5) L 03/25/17 05:22 Hct 22.4 % (39.0-53.0) L 03/25/17 05:22 MCV 98.0 fL (80.0-100.0) 03/25/17 05:22 MCH 34.3 pg (25.0-35.0) 03/25/17 05:22 MCHC 35.0 g/dL (31.0-37.0) 03/25/17 05:22 RDW 14.7 % (11.5-15.5) 03/25/17 05:22 Plt Count 53 k/uL (150-450) L D 03/25/17 05:22 Neutrophils % 27 % 03/18/17 21:10 Lymphocytes % 58 % 03/18/17 21:10 Monocytes % 6 % 03/18/17 21:10 Eosinophils % 3 % 03/18/17 21:10 Basophils % 3 % 03/18/17 21:10 Neutrophils # 0.1 k/uL (1.3-7.7) L 03/18/17 21:10 Lymphocytes # 0.1 k/uL (1.0-4.8) L 03/18/17 21:10 Monocytes # 0.0 k/uL (0-1.0) 03/18/17 21:10 Eosinophils # 0.0 k/uL (0-0.7) 03/18/17 21:10 Basophils # 0.0 k/uL (0-0.2) 03/18/17 21:10 Differential Comment 03/25/17 05:22 Manual Slide Review Performed 03/24/17 05:24 Hypochromasia Slight 03/21/17 07:03 Poikilocytosis (manual Present 03/23/17 05:37 Anisocytosis (manual) Present 03/23/17 05:37 Macrocytosis Slight 03/24/17 05:24 Tear Drop Cells Present 03/21/17 07:03 Ovalocytes Present 03/21/17 07:03 PT 13.2 sec (9.0-12.0) H 03/20/17 04:26 INR 1.3 (<1.1) 03/20/17 04:26 APTT 24.3 sec (22.0-30.0) 03/20/17 04:26 Sample Site LRAD 03/25/17 15:12 ABG pH 7.44 (7.35-7.45) 03/25/17 15:12 ABG pCO2 26 mmHg (35-45) L 03/25/17 15:12 ABG pO2 94 mmHg (83-108) 03/25/17 15:12 ABG HCO3 18 mmol/L (21-25) L 03/25/17 15:12 ABG Total CO2 18 mmol/L (19-24) L 03/25/17 15:12 ABG O2 Saturation 98.0 % (94-97) H 03/25/17 15:12 ABG Base Excess -5.8 mmol/L 03/25/17 15:12 FiO2 30 % 03/25/17 15:12 Sodium 147 mmol/L (137-145) H 03/25/17 19:37 Potassium 5.0 mmol/L (3.5-5.1) 03/25/17 19:37 Chloride 122 mmol/L (98-107) H* 03/25/17 19:37 Carbon Dioxide 17 mmol/L (22-30) L 03/25/17 19:37 Anion Gap 8 mmol/L 03/25/17 19:37 BUN 21 mg/dL (9-20) H 03/25/17 19:37 Creatinine 0.78 mg/dL (0.66-1.25) 03/25/17 19:37 Est GFR (MDRD) Af Amer >60 (>60 ml/min/1.73 sqM) 03/25/17 19:37 Est GFR (MDRD) Non-Af >60 (>60 ml/min/1.73 sqM) 03/25/17 19:37 Glucose 119 mg/dL (74-99) H 03/25/17 19:37 POC Glucose (mg/dL) 134 mg/dL (75-99) H 03/25/17 17:12 POC Glu [employer] Marilee Moncada 03/25/17 17:[address] Glu mg/dL 134 mg/dL 03/24/17 05:24 Hemoglobin A1c 6.3 % (4.2-6.1) H 03/24/17 05:24 Plasma Lactic Acid Arnaldo 1.3 mmol/L (0.7-2.0) 03/18/17 21:10 Calcium 8.4 mg/dL (8.4-10.2) 03/25/17 19:37 Phosphorus 2.2 mg/dL (2.5-4.5) L 03/25/17 05:22 Magnesium 2.4 mg/dL (1.6-2.3) H 03/25/17 18:32 Total Bilirubin 1.0 mg/dL (0.2-1.3) 03/19/17 03:12 AST 40 U/L (17-59) 03/19/17 03:12 ALT 50 U/L (21-72) 03/19/17 03:12 Alkaline Phosphatase 147 U/L (38-126) H 03/19/17 03:12 Troponin I 0.013 ng/mL (0.000-0.034) 03/19/17 03:12 Total Protein 5.9 g/dL (6.3-8.2) L 03/19/17 03:12 Albumin 3.0 g/dL (3.5-5.0) L 03/19/17 03:12 Urine Color Yellow 03/18/17 21:50 Urine Appearance Clear (Clear) 03/18/17 21:50 Urine pH 6.0 (5.0-8.0) 03/18/17 21:50 Ur Specific [place] 1.029 (1.001-1.035) 03/18/17 21:50 Urine Protein Trace (Negative) H 03/18/17 21:50 Urine Glucose (UA) Negative (Negative) 03/18/17 21:50 Urine Ketones Negative (Negative) 03/18/17 21:50 Urine Blood Negative (Negative) 03/18/17 21:50 Urine Nitrite Negative (Negative) 03/18/17 21:50 Urine Bilirubin Negative (Negative) 03/18/17 21:50 Urine Urobilinogen <2.0 mg/dL (<2.0) 03/18/17 21:50 Ur Leukocyte Esterase Negative (Negative) 03/18/17 21:50 Vancomycin Trough 21.8 ug/mL 03/23/17 23:16 Blood Type O Negative 03/25/17 09:56 Blood Type Recheck No 03/25/17 09:56 Antibody Screen NEGATIVE 03/25/17 09:56 Crossmatch See Detail 03/25/17 09:56 Transfuse Platelets 03/24/17 03/24/17 08:53 Spec Expiration Date 03/28/2017235503/25/17 09:56 Laboratory Results WBC 0.8 k/uL (3.8-10.6) L* 03/25/17 05:22 RBC 2.28 m/uL (4.30-5.90) L 03/25/17 05:22 Hgb 7.8 gm/dL (13.0-17.5) L 03/25/17 05:22 Hct 22.4 % (39.0-53.0) L 03/25/17 05:22 MCV 98.0 fL (80.0-100.0) 03/25/17 05:22 MCH 34.3 pg (25.0-35.0) 03/25/17 05:22 MCHC 35.0 g/dL (31.0-37.0) 03/25/17 05:22 RDW 14.7 % (11.5-15.5) 03/25/17 05:22 Plt Count 53 k/uL (150-450) L D 03/25/17 05:22 Neutrophils % 27 % 03/18/17 21:10 Lymphocytes % 58 % 03/18/17 21:10 Monocytes % 6 % 03/18/17 21:10 Eosinophils % 3 % 03/18/17 21:10 Basophils % 3 % 03/18/17 21:10 Neutrophils # 0.1 k/uL (1.3-7.7) L 03/18/17 21:10 Lymphocytes # 0.1 k/uL (1.0-4.8) L 03/18/17 21:10 Monocytes # 0.0 k/uL (0-1.0) 03/18/17 21:10 Eosinophils # 0.0 k/uL (0-0.7) 03/18/17 21:10 Basophils # 0.0 k/uL (0-0.2) 03/18/17 21:10 Differential Comment 03/25/17 05:22 Manual Slide Review Performed 03/24/17 05:24 Hypochromasia Slight 03/21/17 07:03 Poikilocytosis (manual Present 03/23/17 05:37 Anisocytosis (manual) Present 03/23/17 05:37 Macrocytosis Slight 03/24/17 05:24 Tear Drop Cells Present 03/21/17 07:03 Ovalocytes Present 03/21/17 07:03 PT 13.2 sec (9.0-12.0) H 03/20/17 04:26 INR 1.3 (<1.1) 03/20/17 04:26 APTT 24.3 sec (22.0-30.0) 03/20/17 04:26 Sample Site LRAD 03/25/17 15:12 ABG pH 7.44 (7.35-7.45) 03/25/17 15:12 ABG pCO2 26 mmHg (35-45) L 03/25/17 15:12 ABG pO2 94 mmHg (83-108) 03/25/17 15:12 ABG HCO3 18 mmol/L (21-25) L 03/25/17 15:12 ABG Total CO2 18 mmol/L (19-24) L 03/25/17 15:12 ABG O2 Saturation 98.0 % (94-97) H 03/25/17 15:12 ABG Base Excess -5.8 mmol/L 03/25/17 15:12 FiO2 30 % 03/25/17 15:12 Sodium 147 mmol/L (137-145) H 03/25/17 19:37 Potassium 5.0 mmol/L (3.5-5.1) 03/25/17 19:37 Chloride 122 mmol/L (98-107) H* 03/25/17 19:37 Carbon Dioxide 17 mmol/L (22-30) L 03/25/17 19:37 Anion Gap 8 mmol/L 03/25/17 19:37 BUN 21 mg/dL (9-20) H 03/25/17 19:37 Creatinine 0.78 mg/dL (0.66-1.25) 03/25/17 19:37 Est GFR (MDRD) Af Amer >60 (>60 ml/min/1.73 sqM) 03/25/17 19:37 Est GFR (MDRD) Non-Af >60 (>60 ml/min/1.73 sqM) 03/25/17 19:37 Glucose 119 mg/dL (74-99) H 03/25/17 19:37 POC Glucose (mg/dL) 134 mg/dL (75-99) H 03/25/17 17:12 POC Glu [employer] ID Marilee Dangelo 03/25/17 17:[address] Glu mg/dL 134 mg/dL 03/24/17 05:24 Hemoglobin A1c 6.3 % (4.2-6.1) H 03/24/17 05:24 Plasma Lactic Acid Arnaldo 1.3 mmol/L (0.7-2.0) 03/18/17 21:10 Calcium 8.4 mg/dL (8.4-10.2) 03/25/17 19:37 Phosphorus 2.2 mg/dL (2.5-4.5) L 03/25/17 05:22 Magnesium 2.4 mg/dL (1.6-2.3) H 03/25/17 18:32 Total Bilirubin 1.0 mg/dL (0.2-1.3) 03/19/17 03:12 AST 40 U/L (17-59) 03/19/17 03:12 ALT 50 U/L (21-72) 03/19/17 03:12 Alkaline Phosphatase 147 U/L (38-126) H 03/19/17 03:12 Troponin I 0.013 ng/mL (0.000-0.034) 03/19/17 03:12 Total Protein 5.9 g/dL (6.3-8.2) L 03/19/17 03:12 Albumin 3.0 g/dL (3.5-5.0) L 03/19/17 03:12 Urine Color Yellow 03/18/17 21:50 Urine Appearance Clear (Clear) 03/18/17 21:50 Urine pH 6.0 (5.0-8.0) 03/18/17 21:50 Ur Specific [place] 1.029 (1.001-1.035) 03/18/17 21:50 Urine Protein Trace (Negative) H 03/18/17 21:50 Urine Glucose (UA) Negative (Negative) 03/18/17 21:50 Urine Ketones Negative (Negative) 03/18/17 21:50 Urine Blood Negative (Negative) 03/18/17 21:50 Urine Nitrite Negative (Negative) 03/18/17 21:50 Urine Bilirubin Negative (Negative) 03/18/17 21:50 Urine Urobilinogen <2.0 mg/dL (<2.0) 03/18/17 21:50 Ur Leukocyte Esterase Negative (Negative) 03/18/17 21:50 Vancomycin Trough 21.8 ug/mL 03/23/17 23:16 Blood Type O Negative 03/25/17 09:56 Blood Type Recheck No 03/25/17 09:56 Antibody Screen NEGATIVE 03/25/17 09:56 Crossmatch See Detail 03/25/17 09:56 Transfuse Platelets 03/24/17 03/24/17 08:53 Spec Expiration Date 03/28/2017 - 40703/25/17 09:56 Microbiology 03/18/17 21:10 Blood Blood Culture - Final No Growth after 144 hours 03/22/17 12:17 Sputum Gram Stain - Final 03/22/17 12:17 Sputum Sputum Culture - Final 03/21/17 11:35 Groin Gram Stain - Final 03/21/17 11:35 Groin Wound Culture - Final Methicillin resist S. aureus 03/20/17 12:22 Abdomen Gram Stain - Final 03/20/17 12:22 Abdomen Wound Culture - Final Methicillin resist S. aureus Enterococcus faecalis 03/18/17 21:50 Urine,Voided Urine Culture - Final Assessment and Plan (1) Febrile neutropenia Narrative/Plan: 76-year-old male presents the emergency center with evidence of feeling quite poorly. Having increasing difficulties with swallowing due to significant pain. Has evidence of some radiation esophagitis as well as mucositis at this time. Has had some response to Dilaudid and cool solution. These will continue. Oncology is following. Radiation oncology also following. Emollient can be applied to the irritation to the skin For the febrile neutropenia antibiotic therapy with cefepime and vancomycin is being utilized because of the extensive mucositis vancomycin is indicated. Cultures are in process Supportive care Fluid resuscitation is occurring Patient has multiple small skin lesions likely related to the current chemotherapy. They are not necrotic and do not appear to be ecthyma gangrenosum at this time, more blisterlike. Given her irritation symptoms and can be applied to these areas and when improved the hydrocolloid can be utilized. Cultures are processing being monitored. Given the significant mucositis in fever the patient is at risk of underlying fungal infection and with this micafungin is utilized. Albumin is low attritional supplementation and process Patientis intubated and is being sedated which allowed significant improvement of his discomfort. There is evidence of the multiple lesions to his skin. With his low white count he is not having an aggressive immune response. MRSA isolated. He is receiving appropriate antibiotic therapy. No evidence of any grossly necrotic material. The left thigh ulcer has a small area of some eschar. Does not have the appearance of ecthyma gangrenosum at this time. Duoderm applied Status: Acute (2) Small cell lung cancer Status: Chronic (3) Atrial flutter with rapid ventricular response Status: Acute (4) Anemia Status: Acute
[2017-03-25] MEDS ORDERED: VANCOMYCIN TROUGH DUE 1 EACH MISC MISCELLANE ONE (23:00)
[2017-03-26] MEDS: CEFEPIME 2 GM in SODIUM CHLORIDE 0.9% 50 ML IVPB SCH ×3 (00:22→15:15)
[2017-03-26] MEDS: HYDROmorphone 1 MG/ML 1 ML SYRINGE IVP PRN ×4 (00:22→22:10)
[2017-03-26] MEDS: INSULIN LISPRO (humaLOG) 300 UNIT/3 ML VIAL SQ SCH ×4 (00:24→17:48)
[2017-03-26 00:25] LABS: Glucose,Whole Blood 111 mg/dL (75-99)
[2017-03-26] MEDS: METOPROLOL TARTRATE 5 MG/5 ML VIAL IVP SCH ×2 (00:25→05:59)
[2017-03-26] MEDS: VANCOMYCIN 1,500 MG in SODIUM CHLORIDE 0.9% 250 ML IVPB SCH (00:28)
[2017-03-26] MEDS: PROPOFOL 500 MG in EMPTY BAG 1 BAG IV SCH ×4 (00:46→11:01)
[2017-03-26 04:50] LABS: Basophils % (A) 0 %; CH 32.2; CHCM 32.9; Eosinophils % (A) 0 %; HCT 26.7 % (39.0-53.0); HDW 3.16; HGB 8.8 gm/dL (13.0-17.5); Luc # (Auto) 0.08; Luc % (Auto) 4; Lymphocytes # (A) 0.3 k/uL (1.0-4.8); Lymphocytes % (A) 16 %; MCH 32.5 pg (25.0-35.0); MCHC 33.1 g/dL (31.0-37.0); MCV 98.3 fL (80.0-100.0); Mean Platelet Volume 7.5; Monocytes # (A) 0.1 k/uL (0-1.0); Monocytes % (A) 5 %; Neutrophils # (A) 1.7 k/uL (1.3-7.7); Neutrophils % (A) 75 %; RBC 2.71 m/uL (4.30-5.90); RDW 15.2 % (11.5-15.5); WBC 2.2 k/uL (3.8-10.6); WBC (Perox) 2.34
[2017-03-26 04:57] LABS: Anion Gap 8 mmol/L; Blood Urea Nitrogen 22 mg/dL (9-20); Calcium 8.3 mg/dL (8.4-10.2); Carbon Dioxide 19 mmol/L (22-30); Glucose 132 mg/dL (74-99); Magnesium 2.2 mg/dL (1.6-2.3); Non-African American GFR(MDRD) >60 (>60 ml/min/1.73 sqM); Phosphorous 2.5 mg/dL (2.5-4.5); Potassium 4.6 mmol/L (3.5-5.1); Sodium 148 mmol/L (137-145)
[2017-03-26 04:58] LABS: Chloride 121 mmol/L (98-107)
[2017-03-26 06:00] LABS: Glucose,Whole Blood 133 mg/dL (75-99)
[2017-03-26 07:10] LABS: Glucose,Whole Blood 137 mg/dL (75-99)
--- NOTE | 2017-03-26 07:22 | XR ---
EXAMINATION TYPE: XR chest 1V portable DATE OF EXAM: 03/26/2017 7:03 AM HISTORY: Tube placement. REFERENCE: Previous study dated 03/25/2017. FINDINGS: There has been a midline sternotomy. A unipolar pacemaker is in place on the left. The lele ent is ET tube and NG tube remain in place, unchanged in appearance. The heart is mildly prominent. There are bilateral small effusions. There is some left basilar airspa ce disease IMPRESSION: NO SIGNIFICANT INTERVAL CHANGE IN THE APPEARANCE OF THE CHEST.
[2017-03-26] MEDS: SYMBICORT 160-4.5 MCG INHALER INHALATION SCH (07:24)
[2017-03-26] MEDS: IPRATROPIUM-ALBUTEROL 3 ML NEB INHALATION SCH ×4 (07:24→20:21)
[2017-03-26] MEDS: PANTOPRAZOLE 40 MG/10 ML VIAL IV SCH ×2 (08:10→17:37)
[2017-03-26] MEDS: SPIRONOLACTONE 25 MG TAB PO SCH (08:11)
[2017-03-26 08:51] LABS: ABG Base Excess -5.3 mmol/L; ABG HCO3 18 mmol/L (21-25); ABG PCO2 26 mmHg (35-45); ABG PH 7.45 (7.35-7.45); ABG PO2 113 mmHg (83-108); ABG TCO2 19 mmol/L (19-24)
[2017-03-26 08:52] LABS: ABG Oxygen Saturation 98.8 % (94-97)
[2017-03-26] MEDS: DOCUSATE ORAL SOLN 100 MG/10 ML CUP PO SCH ×3 (09:10→22:08)
[2017-03-26] MEDS: CHLORHEXIDINE GLUCONATE 15 ML CUP MUCOUS MEM SCH (09:10)
[2017-03-26] MEDS: GABAPENTIN 300 MG CAP PO SCH ×4 (09:10→22:08)
[2017-03-26] MEDS: CHOLECALCIFEROL 1,000 UNIT TAB PO SCH (09:11)
[2017-03-26] MEDS: MULTIVITAMINS, THERA 1 EACH TAB PO SCH (09:11)
[2017-03-26] MEDS: FERROUS SULFATE 325 MG TAB PO SCH (09:11)
[2017-03-26] MEDS: OXYBUTYNIN CHLORIDE 5 MG TAB PO SCH ×4 (09:11→22:09)
[2017-03-26] MEDS: VITAMIN E (DL,TOCOPHERYL ACET) 400 UNIT CAP PO SCH (09:11)
[2017-03-26] MEDS: ZINC OXIDE 20% OINT 28.4 GM TUBE TOPICAL SCH ×3 (09:12→22:09)
[2017-03-26] MEDS: HYDROCORTISONE 1% CREAM 454 GM JAR TOPICAL SCH ×2 (09:12→20:35)
[2017-03-26] MEDS: PYRIDOXINE 50 MG TAB PO SCH (09:12)
[2017-03-26] MEDS: ATORVASTATIN 80 MG TAB PO SCH (09:13)
[2017-03-26] MEDS: MAG HYDROX/AL HYDROX/SIMETH 30 ML, LIDOCAINE VISCOUS 30 ML, diphenhydrAMINE ELIXIR 75 M... PO SCH ×12 (09:13→22:11)
[2017-03-26] MEDS: DILTIAZEM 125 MG in SODIUM CHLORIDE 0.9% 100 ML IV SCH (10:19)
[2017-03-26] MEDS: SODIUM CHLORIDE 0.9% 1,000 ML IV SCH (12:06)
[2017-03-26] MEDS: METOPROLOL TARTRATE 25 MG TAB PO SCH ×3 (12:06→22:09)
[2017-03-26 12:07] LABS: Glucose,Whole Blood 134 mg/dL (75-99)
--- NOTE | 2017-03-26 12:43 | P.PN ---
Subjective Principal diagnosis: Acute neutropenic sepsis and respiratory failure 76-year-old male patient who is quite ill and he comes into the hospital because of various medical problems and chronic shortness of breath and difficulty in swallowing and chest congestion and generalized weakness and fatigue. The patient also had limited changes in his mentation. Note that the patient has history of coronary artery disease and he has undergone previous carotid bypass surgery 2014. 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 He has also peripheral vascular disease and has undergone stenting of the left lower extremity. He was recently diagnosed having small cell lung cancer. Diagnosed was established by bronchoscopy as the patient was found to have endobronchial tumor and based on the limited staging of the small cell lung cancer the patient was referred to radiation oncology and hematology oncology. A patient was started on radiation therapy and he was given a total of 10 sessions of radiation therapy and he has another 10 sessions to go. He was also given the first session of systemic chemotherapy with a combination of carboplatinum and ADULT HEALTH CLINICAL NURSE SPECIALIST-16. Note that the patient was doing well to around a few days ago and he started developing worsening in his mucositis and swallowing. His chest started becoming more congested. He was unable to swallow. He became progressively more weak and dehydrated. The family and himself denied any episodes of aspiration. He denied having any nausea vomiting or diarrhea. He reported burning sensation in his upper chest. At the same time he has noted some purulent nodules arising in his groin and suprapubic area. These are small nodular lesions that are measuring 1-2 cm in size which have some central purulent material draining. No dysuria. No frequency. No urgency. He still producing urine output. In the burst department the patient was found to be also in atrial fibrillation with rapid ventricular response and he was started on IV heparin and IV Cardizem. Rate is still tachycardic in the 120 range. At the same time the patient was found to be neutropenic and pancytopenic. His white cell count was at 0.2. He is single was 8.4. His platelet count at 48, 000. His creatinine was at 1.2. The patient was started on IV fluids. He was given IV fluid boluses and currently is on any normal saline infusion rate of 1 25 mL an hour. The patient is also on a combination of cefepime and vancomycin. No fever at this point. No headache. No neck stiffness. On 03/20/2017 I'm seeing this patient in follow-up in the intensive care unit. He is doing slightly better. Still unable to swallow and still having burning sensation in his throat and upper chest related to severe mucositis. He is afebrile. He is hemodynamically stable. He is on broad-spectrum antibiotics. All of the cultures of been negative. Still pancytopenic and the white cell count today is at 0.3 with a hemoglobin of 8.7 and platelet count of 23,000. He is still in atrial fibrillation with rate being controlled. He is on no anti -coagulation based on his underlying thrombocytopenia. He has a component of non-anion gap metabolic acidosis. His bicarb level is at 17. CAT scan of the brain was done today and the patient had shown mild diffuse cerebral atrophy with mild to moderate chronic small vessel ischemic changes. No other enhancing lesions. Family is at the bedside. The patient is lethargic and still profoundly weak. On 03/21/2017 I'm seeing this patient in follow-up in the intensive care units. Very much delirious and overnight very much agitated for which she was given Haldol and Ativan. Bit more comfortable and calm her today this morning. Family is at the bedside. Remains profoundly pancytopenic without any major recovery in his hematologic profile. Afebrile and hemodynamically stable covered with broad-spectrum antibiotics. All of the cultures have not indicated any specific microbial growth for now. ID is on the case. The pustules and the groin and suprapubic area remains unchanged. There are several of them at least 6 and only a few had some purulent center which seems to be much more dried up on today's evaluation. No bleeding. Platelet counts have dropped down to 13,000. Vancomycin trough is at 17.8. On 03/22/2017 I'm seeing this patient in follow-up. The patient is quite lethargic. He was agitated throughout the night. He had required several doses of Haldol and Ativan. He is per much sedated at this point and seems to be more comfortable. I was told that overnight he was very agitated and difficult to control. He is on 2 point restraints at this point. Hematologically, the patient is still pancytopenic and he still being treated for neutropenic fevers. He has a white cell count of 0.4 with a hemoglobin of 7.7 and platelet count of 17,000. He is afebrile. The cultures obtained from the groin wounds/pustules box turner to be MRSA and there may be also group D enterococcus. Blood cultures of been negative. Urine culture been negative. The patient is on no pressors. The patient is still on a combination of cefepime and vancomycin and micafungin regarding his neutropenic sepsis. ID is on the case. On 03/23/2017, the patient remains intubated on the mechanical ventilator. The patient sedated with Diprivan. The patient currently is an assist-control mode of ventilation, etc. rate of 20, tidal volume of 500, FiO2 of 40% and a PEEP of 5. The blood gases from this morning showed a pH of 7.37 with a pCO2 of 25 and pO2 of 144. The patient's chest x-ray shows a small right-sided pleural effusion. ET tube is in a good location. The patient is well sedated. The patient is receiving enteral feeding for nutritional support. The patient is on no pressors at this point and he is hemodynamically stable. The patient has been found to have MRSA in the suprapubic pustules and the patient is currently on a combination of vancomycin, Zosyn and micafungin. He remains pancytopenic and there is no improvement in his hematologic profile. White cell count remains at 0.5 with a hemoglobin of 8.6 and a platelet count of 12,000. CAT scan of the bilateral lower extremity was done yesterday and the patient has some enlarged left exterior iliac chain lymph nodes as well as bilateral prominent but nonenlarged inguinal femoral lymph node chains. There is some focal inflammatory changes along the anterior right groin area likely representing an area of cellulitis. No abscesses could be found. No evidence of any necrotizing fasciitis at this point. The patient is tolerating his tube feeds. He is calm and comfortable at this point. No other significant events overnight. On 03/24/2017, patient remains intubated, on mechanical ventilation. His ventilator settings were reviewed, FiO2 is 30%, assist control rate of 20 tidal volume of 500 and PEEP of 5. ABG showed a pO2 of 156 pCO2 of 25 pH of 7.40. Other labs were reviewed, WBC count remains low at 0.4, hemoglobin is 8.3, platelets are 11,000. Basic metabolic profile showed sodium of 145 chloride is 121 patient has a hyperchloremic metabolic acidosis non-anion gap. Chest x-ray showed mild cardiomegaly and left basilar air space disease with small bilateral pleural effusions. Antibiotics remain to include cefepime, micafungin , and vancomycin. Patient remains sedated on propofol drip, hemodynamically seems to be relatively stable. Wound culture has been positive for methicillin staph aureus and Enterococcus faecalis. Both are sensitive to vancomycin. Patient was reevaluated today on 03/25/2017, remains intubated, on mechanical ventilation, his weaning parameters were noted to be poor today, and his respirator rate on CPAP was in the high 50s. Hence no further attempts of weaning was made. ABG showed a pO2 of 94 pCO2 of 26 pH of 7.44. His vent settings are tidal volume of 500 FiO2 of 30% assist control rate of 16 and PEEP is 5. Chest x-ray showed stable by basilar atelectasis or infiltrates. And mild central venous congestion. All labs were reviewed, WBC count is 0.8 today , hemoglobin is 7.8 sodium is 147 chloride is 120 bicarb is 18, renal profile is normal. Patient was earlier on propofol drip, however he was noted to be appropriate when the propofol was discontinued, and a short the CPAP trial was given. Reevaluated today on 03/26/2017, patient remains on mechanical ventilation, intubated, patient is presently on propofol which I plan to discontinue and at least give the patient weaning parameters and possibly a weaning trial. However patient is in atrial flutter, rate is 140, and I plan to reconsult cardiology regarding his atrial flutter, in the meantime I will start the patient on Cardizem with 10 mg bolus and 10 mg drip per hour. Ventilator settings were reviewed, he is presently on assist control rate of 16 tidal volume of 500 FiO2 of 30%, and PEEP is 5. ABG showed a pO2 of 113 pCO2 of 26 pH of 7.45. CBC is showing improvement, WBC count is 2.2 hemoglobin is 8.8 platelets remained low at 57,000. Sodium is 148, hence I will recommend free water flushes. Renal profile is normal. Blood cultures have been negative with cultures have been positive for MRSA and Enterococcus faecalis. Antibiotics remain the same. Objective - Vital Signs Vital signs: Vital Signs Temp 98.2 F 03/26/17 12:00 Pulse 110 H 03/26/17 12:00 Resp 27 H 03/26/17 12:00 BP 149/78 03/26/17 12:00 Pulse Ox 97 03/26/17 12:00 Intake & Output 03/25/17 03/26/17 03/26/17 18:59 06:59 18:59 Intake Total 2900 2558.456 2017.167 Output Total 3415 1020 1135 Balance -515 1538.456 882.167 Weight 95.1 kg 95.1 kg Intake: Intake, IV Titration 1625 1373.456 607.167 Amount Cefepime 2 gm In Sodium 100 50 100 Chloride 0.9% 50 ml @ 100 mls/hr IVPB Q8H [facility] Rx#: [id number] Diltiazem 125 mg In 7.167 Sodium Chloride 0.9% 100 ml @ 10 MG/HR 10 mls/hr IV .[id number] [facility] Rx#: [id number] Magnesium Sulfate-D5w Pmx 200 1 gm In Dextrose/Water 1 100ml.bag @ 100 mls/hr IVPB Q1H [facility] Rx#: [id number] Micafungin 100 mg In 200 Sodium Chloride 0.9% 100 ml @ 100 mls/hr IVPB DAILY@1800 [facility] Rx#: [id number] Propofol 500 mg In Empty 100 173.456 50 Bag 1 bag @ Titrate IV . Q0M [facility] Rx#:[id number] Sodium Chloride 0.9% 1, 900 900 450 000 ml @ 75 mls/hr IV . [id number] [facility] Rx#:[id number] Vancomycin 1,500 mg In 125 250 Sodium Chloride 0.9% 250 ml @ 125 mls/hr IVPB Q16H [facility] Rx#:[id number] Oral 30 Tube Feeding 340 480 960 Blood Product 310 Rc As-1 Unit 310 [id number] Other 625 675 450 Output: Urine 2415 1020 1135 Emesis 1000 Other: Voiding Method Indwelling Catheter Indwelling Catheter # Voids 1 # Bowel Movements 0 - Exam The patient is intubated on a mechanical ventilator sedated and calm and comfortable. Gastric and orotracheal tube are both in place. Head exam was generally normal. There was no scleral icterus or corneal arcus. Mucous membranes were moist. Mucous membranes are dry. There is no oropharyngeal thrush seen. No open ulceration in the mucous membranes. Lung sounds are diminished and there is some scattered rhonchi and crackles heard throughout the lung his bilaterally. Heart sounds are irregular, possible sinus stool, no cervical murmurs appreciated.Abdominal exam revealed normal bowel sounds. The abdomen was soft, non-tender, and without masses, organomegaly, or appreciable enlargement of the abdominal aorta. This groin area shows no other pustular lesions several of them the largest measuring 2 cm in size with central purulent material. Extremities show no edema no cyanosis or clubbing at the pulses are diminished. Neurologically patient is sedated. - Labs CBC & Chem 7: 03/26/17 04:10 03/26/17 04:10 Labs: Abnormal Lab Results - Last 24 Hours (Table) 03/25/17 03/25/17 03/25/17 Range/Units 09:56 15:12 17:12 WBC (3.8-10.6) k/uL RBC (4.30-5.90) m/uL Hgb (13.0-17.5) gm/dL Hct (39.0-53.0) % Plt Count (150-450) k/uL Lymphocytes # (1.0-4.8) k/uL ABG pCO2 26 L (35-45) mmHg ABG pO2 (83-108) mmHg ABG HCO3 18 L (21-25) mmol/L ABG Total CO2 18 L (19-24) mmol/L ABG O2 Saturation 98.0 H (94-97) % Sodium (137-145) mmol/L Potassium (3.5-5.1) mmol/L Chloride (98-107) mmol/L Carbon Dioxide (22-30) mmol/L BUN (9-20) mg/dL Glucose (74-99) mg/dL POC Glucose (mg/dL) 134 H (75-99) mg/dL Calcium (8.4-10.2) mg/dL Magnesium (1.6-2.3) mg/dL Crossmatch See Detail 03/25/17 03/25/17 03/26/17 Range/Units 18:32 19:37 00:24 WBC (3.8-10.6) k/uL RBC (4.30-5.90) m/uL Hgb (13.0-17.5) gm/dL Hct (39.0-53.0) % Plt Count (150-450) k/uL Lymphocytes # (1.0-4.8) k/uL ABG pCO2 (35-45) mmHg ABG pO2 (83-108) mmHg ABG HCO3 (21-25) mmol/L ABG Total CO2 (19-24) mmol/L ABG O2 Saturation (94-97) % Sodium 147 H 147 H (137-145) mmol/L Potassium 6.0 H (3.5-5.1) mmol/L Chloride 125 H* 122 H* (98-107) mmol/L Carbon Dioxide 17 L 17 L (22-30) mmol/L BUN 21 H 21 H (9-20) mg/dL Glucose 120 H 119 H (74-99) mg/dL POC Glucose (mg/dL) 111 H (75-99) mg/dL Calcium (8.4-10.2) mg/dL Magnesium 2.4 H (1.6-2.3) mg/dL Crossmatch 03/26/17 03/26/17 03/26/17 Range/Units 04:10 04:10 05:58 WBC 2.2 L (3.8-10.6) k/uL RBC 2.71 L (4.30-5.90) m/uL Hgb 8.8 L (13.0-17.5) gm/dL Hct 26.7 L (39.0-53.0) % Plt Count 37 L* (150-450) k/uL Lymphocytes # 0.3 L (1.0-4.8) k/uL ABG pCO2 (35-45) mmHg ABG pO2 (83-108) mmHg ABG HCO3 (21-25) mmol/L ABG Total CO2 (19-24) mmol/L ABG O2 Saturation (94-97) % Sodium 148 H (137-145) mmol/L Potassium (3.5-5.1) mmol/L Chloride 121 H* (98-107) mmol/L Carbon Dioxide 19 L (22-30) mmol/L BUN 22 H (9-20) mg/dL Glucose 132 H (74-99) mg/dL POC Glucose (mg/dL) 133 H (75-99) mg/dL Calcium 8.3 L (8.4-10.2) mg/dL Magnesium (1.6-2.3) mg/dL Crossmatch 03/26/17 03/26/17 03/26/17 Range/Units 07:09 08:03 12:05 WBC (3.8-10.6) k/uL RBC (4.30-5.90) m/uL Hgb (13.0-17.5) gm/dL Hct (39.0-53.0) % Plt Count (150-450) k/uL Lymphocytes # (1.0-4.8) k/uL ABG pCO2 26 L (35-45) mmHg ABG pO2 113 H (83-108) mmHg ABG HCO3 18 L (21-25) mmol/L ABG Total CO2 (19-24) mmol/L ABG O2 Saturation 98.8 H (94-97) % Sodium (137-145) mmol/L Potassium (3.5-5.1) mmol/L Chloride (98-107) mmol/L Carbon Dioxide (22-30) mmol/L BUN (9-20) mg/dL Glucose (74-99) mg/dL POC Glucose (mg/dL) 137 H 134 H (75-99) mg/dL Calcium (8.4-10.2) mg/dL Magnesium (1.6-2.3) mg/dL Crossmatch Assessment and Plan Plan: 1 neutropenic sepsis. The patient is afebrile however he has very source of infection at these to be considered including the lungs, esophagitis and no other pustular lesions in the suprapubic and inguinal area which could be potentially staphylococcal or fungal. The wound cultures box turner to be positive for enterococcus and MRSA. The patient remains on a combination of cefepime, vancomycin and micafungin. 2 limited stage small cell lung cancer status post chemoradiation therapy. The patient has received one session of systemic chemotherapy with carboplatinum and ADULT HEALTH CLINICAL NURSE SPECIALIST-16 and 10 sessions of radiation therapy 3 esophagitis/mucositis secondary to radiation therapy with secondary difficulty in swallowing. Rule out candidal esophagitis 4 pancytopenia secondary to chemotherapy. . The patient remains profoundly neutropenic with a white cell count of 0.5. The patient is receiving Zarxio 5 paroxysmal atrial fibrillation, currently in sinus tachycardia 6 CHF with an ejection fraction of 35% 7 coronary artery disease with multivessel involvement and the patient is status post carotid bypass surgery 8 history of AICD placement 9 dysphagia, currently nothing by mouth 10 acute kidney injury, improved in the creatinine normalized 11 peripheral vascular disease with previous vascular intervention of the left lower extremity 12 prostate cancer status post prostatectomy 13 severe peripheral neuropathy 14 depression/anxiety 15 coronary artery bypass surgery, history of 16 acute respiratory failure secondary to above-mentioned comorbidities currently intubated on a mechanical ventilator. 17 hyperchloremic hypernatremia and the patient is receiving free water flushes Recommendation: Continue present supportive care measures including mechanical ventilation, nutritional support, hemodynamic support if necessary, antibiotics , continue to monitor hematologic profile, considering the patient's atrial flutter, I recommended that we start the patient on Cardizem bolus and drip at 10 mg per hour, will reconsult cardiology to evaluate, patient has not been seen in the last couple of days. Patient will not be weaned unless the heart rate seems to be better controlled, mostly because if we attempt weaning at this point, it is certain to fal because of his cardiac arrhythmia. And rapid atrial flutter. Notified cardiology, and once this is controlled, I plan to give the patient a trial with pressure support and CPAP. Discussed his condition with his daughter at bedside. Critical care time is 40 minutes. Time with Patient: Greater than 30
--- NOTE | 2017-03-26 13:25 | P.PN ---
Subjective Patient is a 76-year-old male, patient of Dr. Mulligan in the outpatient setting, with medical history significant for paroxysmal atrial fibrillation, GERD, hyperlipidemia, hypertension, coronary artery disease status post coronary artery bypass grafting in 2014 followed by stenting to the left SFA in August 2015, myocardial infarction, ischemic cardiomyopathy status post placement of internal cardiac defibrillator, prostate cancer status post prostatectomy in 1998, peripheral vascular disease status post stent placement to left lower extremity, osteoarthritis, severe peripheral neuropathy, and remote nicotine dependence. 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 Per chart and daughter, patient had been experiencing trouble with swallowing and increased shortness of breath over the last couple of days prior to admission in addition to having generalized weakness, fatigue, and shakiness. Patient originally presented to [facility] where he underwent a CTA of the chest with evidence of cardiomegaly, right upper lung nodule and right hilar invasive mass with thoracic adenopathy; and moderate to severe thickening of the mid esophagus. Patient was transferred to [facility]. In the emergency department, patient was found to have evidence of febrile neutropenia and pancytopenia with evidence of acute renal failure. Patient was admitted to the intensive care unit and consults were requested for Dr. Figueroa for oncology service , Dr. Courtney for pulmonary service, cardiology service, and Dr. Gomez for infectious disease service. While in the intensive care unit, patient's respiratory status declined requiring ventilatory support. Patient did have positive wound cultures for MRSA for blister type wounds. Patient is evaluated in the intensive care unit where he is remains intubated and sedated on mechanical ventilation. Patient has not needed any use of vasopressors for hemodynamic stability. Urine output adequate. Patient is tolerating tube feeds. Heart rate in the 130s, patient is going to be started on Cardizem with reconsult to cardiology. No plans for weaning today. Chest x- ray from today with no significant interval change from yesterday. WBC increased to 2.2. Hemoglobin increased to 8.8. Platelets decreased to 37. Sodium 148. Patient will start free water flushes. Objective - Vital Signs Vital signs: Vital Signs Temp 98.2 F 03/26/17 12:00 Pulse 110 H 03/26/17 12:00 Resp 27 H 03/26/17 12:00 BP 149/78 05/24/17 12:00 Pulse Ox 97 03/26/17 12:00 Intake & Output 03/25/17 03/26/17 03/26/17 18:59 06:59 18:59 Intake Total 2900 2558.456 2017.167 Output Total 3415 1020 1135 Balance -515 1538.456 882.167 Weight 95.1 kg 95.1 kg Intake: Intake, IV Titration 1625 1373.456 607.167 Amount Cefepime 2 gm In Sodium 100 50 100 Chloride 0.9% 50 ml @ 100 mls/hr IVPB Q8H [facility] Rx#: [id number] Diltiazem 125 mg In 7.167 Sodium Chloride 0.9% 100 ml @ 10 MG/HR 10 mls/hr IV .[id number] [facility] Rx#: [id number] Magnesium Sulfate-D5w Pmx 200 1 gm In Dextrose/Water 1 100ml.bag @ 100 mls/hr IVPB Q1H [facility] Rx#: [id number] Micafungin 100 mg In 200 Sodium Chloride 0.9% 100 ml @ 100 mls/hr IVPB DAILY@1800 [facility] Rx#: [id number] Propofol 500 mg In Empty 100 173.456 50 Bag 1 bag @ Titrate IV . Q0M [facility] Rx#:[id number] Sodium Chloride 0.9% 1, 900 900 450 000 ml @ 75 mls/hr IV . [id number] [facility] Rx#:[id number] Vancomycin 1,500 mg In 125 250 Sodium Chloride 0.9% 250 ml @ 125 mls/hr IVPB Q16H [facility] Rx#:[id number] Oral 30 Tube Feeding 340 480 960 Blood Product 310 Rc As-1 Unit 310 [id number] Other 625 675 450 Output: Urine 2415 1020 1135 Emesis 1000 Other: Voiding Method Indwelling Catheter Indwelling Catheter # Voids 1 # Bowel Movements 0 - Exam GENERAL: Pt is sedated on the ventilator. HEAD: Atraumatic, normocephalic. EYES: Pupils equal, round, and reactive to light, sclera anicteric, conjunctiva are normal. ENT: Moist mucous membranes. NECK: Supple without lymphadenopathy or JVD. Trachea midline. LUNGS: Breath sounds with scattered rhonchi to anterior lung kohler. HEART: Heart S1, S2, no S3 or S4. Regular irregular. No murmurs, rubs or gallops. ABDOMEN: Soft, nondistended, normoactive bowel sounds. No guarding, no rebound. No masses or organomegaly appreciated. EXTREMITIES: 1+ peripheral pulses. 1+ Peripheral edema to upper and lower extremities. NEUROLOGICAL: Pt sedated. SKIN: Warm, dry. - Labs CBC & Chem 7: 03/26/17 04:10 03/26/17 04:10 Labs: Abnormal Lab Results - Last 24 Hours (Table) 03/25/17 03/25/17 03/25/17 Range/Units 09:56 15:12 17:12 WBC (3.8-10.6) k/uL RBC (4.30-5.90) m/uL Hgb (13.0-17.5) gm/dL Hct (39.0-53.0) % Plt Count (150-450) k/uL Lymphocytes # (1.0-4.8) k/uL ABG pCO2 26 L (35-45) mmHg ABG pO2 (83-108) mmHg ABG HCO3 18 L (21-25) mmol/L ABG Total CO2 18 L (19-24) mmol/L ABG O2 Saturation 98.0 H (94-97) % Sodium (137-145) mmol/L Potassium (3.5-5.1) mmol/L Chloride (98-107) mmol/L Carbon Dioxide (22-30) mmol/L BUN (9-20) mg/dL Glucose (74-99) mg/dL POC Glucose (mg/dL) 134 H (75-99) mg/dL Calcium (8.4-10.2) mg/dL Magnesium (1.6-2.3) mg/dL Crossmatch See Detail 03/25/17 03/25/17 03/26/17 Range/Units 18:32 19:37 00:24 WBC (3.8-10.6) k/uL RBC (4.30-5.90) m/uL Hgb (13.0-17.5) gm/dL Hct (39.0-53.0) % Plt Count (150-450) k/uL Lymphocytes # (1.0-4.8) k/uL ABG pCO2 (35-45) mmHg ABG pO2 (83-108) mmHg ABG HCO3 (21-25) mmol/L ABG Total CO2 (19-24) mmol/L ABG O2 Saturation (94-97) % Sodium 147 H 147 H (137-145) mmol/L Potassium 6.0 H (3.5-5.1) mmol/L Chloride 125 H* 122 H* (98-107) mmol/L Carbon Dioxide 17 L 17 L (22-30) mmol/L BUN 21 H 21 H (9-20) mg/dL Glucose 120 H 119 H (74-99) mg/dL POC Glucose (mg/dL) 111 H (75-99) mg/dL Calcium (8.4-10.2) mg/dL Magnesium 2.4 H (1.6-2.3) mg/dL Crossmatch 03/26/17 03/26/17 03/26/17 Range/Units 04:10 04:10 05:58 WBC 2.2 L (3.8-10.6) k/uL RBC 2.71 L (4.30-5.90) m/uL Hgb 8.8 L (13.0-17.5) gm/dL Hct 26.7 L (39.0-53.0) % Plt Count 37 L* (150-450) k/uL Lymphocytes # 0.3 L (1.0-4.8) k/uL ABG pCO2 (35-45) mmHg ABG pO2 (83-108) mmHg ABG HCO3 (21-25) mmol/L ABG Total CO2 (19-24) mmol/L ABG O2 Saturation (94-97) % Sodium 148 H (137-145) mmol/L Potassium (3.5-5.1) mmol/L Chloride 121 H* (98-107) mmol/L Carbon Dioxide 19 L (22-30) mmol/L BUN 22 H (9-20) mg/dL Glucose 132 H (74-99) mg/dL POC Glucose (mg/dL) 133 H (75-99) mg/dL Calcium 8.3 L (8.4-10.2) mg/dL Magnesium (1.6-2.3) mg/dL Crossmatch 03/26/17 03/26/17 03/26/17 Range/Units 07:09 08:03 12:05 WBC (3.8-10.6) k/uL RBC (4.30-5.90) m/uL Hgb (13.0-17.5) gm/dL Hct (39.0-53.0) % Plt Count (150-450) k/uL Lymphocytes # (1.0-4.8) k/uL ABG pCO2 26 L (35-45) mmHg ABG pO2 113 H (83-108) mmHg ABG HCO3 18 L (21-25) mmol/L ABG Total CO2 (19-24) mmol/L ABG O2 Saturation 98.8 H (94-97) % Sodium (137-145) mmol/L Potassium (3.5-5.1) mmol/L Chloride (98-107) mmol/L Carbon Dioxide (22-30) mmol/L BUN (9-20) mg/dL Glucose (74-99) mg/dL POC Glucose (mg/dL) 137 H 134 H (75-99) mg/dL Calcium (8.4-10.2) mg/dL Magnesium (1.6-2.3) mg/dL Crossmatch Assessment and Plan Plan: Impression: 1. Neutropenic sepsis suspect secondary to recent chemotherapy and radiation for limited stage small cell lung carcinoma post chemoradiation therapy. Wound cultures positive for MRSA. Patient has received one session of systemic chemotherapy with carboplatinum and BUS OPERATOR-16 and 10 sessions of radiation therapy. 2. Pancytopenia suspect secondary to anti-neoplastic chemotherapy. 3. Atrial flutter with rapid ventricular response. 4. Acute renal failure, present on admission, suspect secondary to hypovolemia and hypoperfusion, secondary to dehydration, resolved. 5. Elevated blood sugars on admission. 6. Elevated alkaline phosphatase, present on admission. 7. Dysphagia, present on admission, suspect secondary to esophagitis and mucositis secondary to recent chemotherapy and radiation with possibility of Traci esophagitis. 8. Chronic renal failure, stage III. 9. Paroxysmal atrial fibrillation maintained on Eliquis in the outpatient setting. 10. Hyperlipidemia. 11. Hypertension. 12. Chronic systolic heart failure, ischemic cardiomyopathy status post AICD placement. Ejection fraction 35%. 13. Coronary artery disease status post coronary artery bypass grafting followed by stenting. 14. History of prostate cancer status post prostatectomy. 15. History of GERD. 16. Severe peripheral vascular disease status post stenting to right lower extremity. 17. Severe peripheral neuropathy. 18. Osteoarthritis. 19. History of anxiety and depression, stable. 20. History of nicotine dependence. 21. Acute respiratory failure secondary to above mentioned comorbidities currently intubated on a mechanical ventilator. 22. Anemia, chemo induced. Plan: Start Cardizem drip for atrial flutter and collaborate with cardiology. Start water flushes for hypernatremia. Continue IV antibiotics per infectious disease recommendations. Continue current medications. Continue supportive treatment. Continue to follow with consultants. Continue GI and DVT prophylaxis. Repeat CBC, CMP, magnesium and phosphorus in a.m. The above impression and plan have been discussed and directed by Dr. Mulligan. Carmel LACEY acting as scribe for Isaak.
[2017-03-26] MEDS: FILGRASTIM-SNDZ 480 MCG/0.8 ML SYRINGE SQ SCH (14:18)
[2017-03-26 17:23] LABS: ABG PCO2 26 mmHg (35-45); ABG PH 7.45 (7.35-7.45); ABG PO2 79 mmHg (83-108)
[2017-03-26 17:24] LABS: ABG Base Excess -5.6 mmol/L; ABG HCO3 18 mmol/L (21-25); ABG TCO2 18 mmol/L (19-24)
[2017-03-26 17:25] LABS: ABG Base Excess -4.9 mmol/L; ABG HCO3 18 mmol/L (21-25); ABG PCO2 24 mmHg (35-45); ABG PH 7.48 (7.35-7.45); ABG PO2 80 mmHg (83-108); ABG TCO2 19 mmol/L (19-24)
[2017-03-26] MEDS: MICAFUNGIN 100 MG in SODIUM CHLORIDE 0.9% 100 ML IVPB SCH (17:43)
[2017-03-26 17:50] LABS: Glucose,Whole Blood 120 mg/dL (75-99)
--- NOTE | 2017-03-26 21:09 | P.PN ---
Subjective Principal diagnosis: Febrile neutropenia 76-year-old male with a known history of small cell lung carcinoma who is been undergoing chemoradiation. Presents emergency center with increasing shortness of breath increasing weakness, increasing fatigue and increasing difficulty with swallowing. He was evaluated by bronchoscopy and endobronchial tumor was noted. She related it was a limited stage small cell lung carcinoma. In counseling and started radiation therapy with concomitant carboplatinum and MEDICAL ASSISTANT SUPERVISOR-16. 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 Decreasing oral intake and increasing weakness. He now presents with evidence of fever, neutropenia and significant dehydration. He is being transferred from the emergency center to the intensive care unit given his atrial fibrillation and hypotension. He has a long-standing history of coronary artery disease atrial fibrillation as well as BPH chronic renal disease and peripheral vascular disease. Is related that he does have a low ejection fraction of 30-35%. His atrial fibrillation is chronic but his rate was quite elevated earlier. With resuscitation and diltiazem drip he has improved. Was having severe pain with Dilaudid and viscous lidocaine he has had some improvement of his status. Patient has now been extubated. Showing some improvement. Pain is under good control. Objective - Vital Signs Vital signs: Vital Signs Temp 98.1 F 03/26/17 16:41 Pulse 106 H 03/26/17 20:48 Resp 20 03/26/17 19:00 BP 146/70 03/26/17 19:00 Pulse Ox 97 03/26/17 19:00 Intake & Output 03/26/17 03/26/17 03/27/17 06:59 18:59 06:59 Intake Total 2558.456 2718.780 75 Output Total 1020 2860 225 Balance 1538.456 -141.220 -150 Weight 95.1 kg Intake: Intake, IV Titration 6855.704 8381.780 75 Amount Cefepime 2 gm In Sodium 50 100 Chloride 0.9% 50 ml @ 100 mls/hr IVPB Q8H [facility] Rx#: [id number] Diltiazem 125 mg In 56.750 Sodium Chloride 0.9% 100 ml @ 10 MG/HR 10 mls/hr IV .[id number] [facility] Rx#: [id number] Micafungin 100 mg In 100 Sodium Chloride 0.9% 100 ml @ 100 mls/hr IVPB DAILY@1800 [facility] Rx#: [id number] Propofol 500 mg In Empty 173.456 92.03 Bag 1 bag @ Titrate IV . Q0M [facility] Rx#:[id number] Sodium Chloride 0.9% 1, 900 900 75 000 ml @ 75 mls/hr IV . [id number] [facility] Rx#:[id number] Vancomycin 1,500 mg In 250 Sodium Chloride 0.9% 250 ml @ 125 mls/hr IVPB Q16H [facility] Rx#:[id number] Oral 30 Tube Feeding 480 1020 Other 675 450 Output: Urine 1020 2860 225 Other: Voiding Method Indwelling Catheter Indwelling Catheter # Bowel Movements 1 - Exam 76-year-old male who appears to be acutely ill. Extubated HEENT: Anicteric conjunctiva are pink and moist nasal mucosa grossly intact without significant lesions, no significant lesions of the oral cavity Neck: The neck is supple without significant lymphadenopathy or thyromegaly. Lungs: Symmetric air entry is noted. Basilar crackles are noted. Expiratory wheezes are scattered no bronchial sounds Heart: Irregularly irregular rate about 120. Soft S4 no murmur click or rub is noted Abdomen: Positive bowel sounds soft and nontender without palpable masses or organomegaly. There was no guarding or rebound. Extremities: Extremities have some generalized edema.. Skin on the interior aspect of both thighs, as well as anterior aspect of both thighs and lower abdominal wall or multiple small skin lesions that have developed since he's been on chemotherapy. There is some induration around these sites. There is no expressible purulence. They've improved in the last day. Some evidence of some mild erythema to the anterior chest wall as well to his back from initiation of the recent radiation therapy. Neurologically he is status post extubation. No longer sedated. Calm and cooperative. Does have generalized weakness. - Labs CBC & Chem 7: 03/26/17 04:10 03/26/17 04:10 Labs: Abnormal Lab Results - Last 24 Hours (Table) 03/25/17 03/26/17 03/26/17 Range/Units 09:56 00:24 04:10 WBC (3.8-10.6) k/uL RBC (4.30-5.90) m/uL Hgb (13.0-17.5) gm/dL Hct (39.0-53.0) % Plt Count (150-450) k/uL Lymphocytes # (1.0-4.8) k/uL ABG pH (7.35-7.45) ABG pCO2 (35-45) mmHg ABG pO2 (83-108) mmHg ABG HCO3 (21-25) mmol/L ABG Total CO2 (19-24) mmol/L ABG O2 Saturation (94-97) % Sodium 148 H (137-145) mmol/L Chloride 121 H* (98-107) mmol/L Carbon Dioxide 19 L (22-30) mmol/L BUN 22 H (9-20) mg/dL Glucose 132 H (74-99) mg/dL POC Glucose (mg/dL) 111 H (75-99) mg/dL Calcium 8.3 L (8.4-10.2) mg/dL Crossmatch See Detail 03/26/17 03/26/17 03/26/17 Range/Units 04:10 05:58 07:09 WBC 2.2 L (3.8-10.6) k/uL RBC 2.71 L (4.30-5.90) m/uL Hgb 8.8 L (13.0-17.5) gm/dL Hct 26.7 L (39.0-53.0) % Plt Count 37 L* (150-450) k/uL Lymphocytes # 0.3 L (1.0-4.8) k/uL ABG pH (7.35-7.45) ABG pCO2 (35-45) mmHg ABG pO2 (83-108) mmHg ABG HCO3 (21-25) mmol/L ABG Total CO2 (19-24) mmol/L ABG O2 Saturation (94-97) % Sodium (137-145) mmol/L Chloride (98-107) mmol/L Carbon Dioxide (22-30) mmol/L BUN (9-20) mg/dL Glucose (74-99) mg/dL POC Glucose (mg/dL) 133 H 137 H (75-99) mg/dL Calcium (8.4-10.2) mg/dL Crossmatch 03/26/17 03/26/17 03/26/17 Range/Units 08:03 12:05 15:40 WBC (3.8-10.6) k/uL RBC (4.30-5.90) m/uL Hgb (13.0-17.5) gm/dL Hct (39.0-53.0) % Plt Count (150-450) k/uL Lymphocytes # (1.0-4.8) k/uL ABG pH (7.35-7.45) ABG pCO2 26 L 26 L (35-45) mmHg ABG pO2 113 H 79 L (83-108) mmHg ABG HCO3 18 L 18 L (21-25) mmol/L ABG Total CO2 18 L (19-24) mmol/L ABG O2 Saturation 98.8 H (94-97) % Sodium (137-145) mmol/L Chloride (98-107) mmol/L Carbon Dioxide (22-30) mmol/L BUN (9-20) mg/dL Glucose (74-99) mg/dL POC Glucose (mg/dL) 134 H (75-99) mg/dL Calcium (8.4-10.2) mg/dL Crossmatch 03/26/17 03/26/17 Range/Units 16:56 17:47 WBC (3.8-10.6) k/uL RBC (4.30-5.90) m/uL Hgb (13.0-17.5) gm/dL Hct (39.0-53.0) % Plt Count (150-450) k/uL Lymphocytes # (1.0-4.8) k/uL ABG pH 7.48 H (7.35-7.45) ABG pCO2 24 L (35-45) mmHg ABG pO2 80 L (83-108) mmHg ABG HCO3 18 L (21-25) mmol/L ABG Total CO2 (19-24) mmol/L ABG O2 Saturation (94-97) % Sodium (137-145) mmol/L Chloride (98-107) mmol/L Carbon Dioxide (22-30) mmol/L BUN (9-20) mg/dL Glucose (74-99) mg/dL POC Glucose (mg/dL) 120 H (75-99) mg/dL Calcium (8.4-10.2) mg/dL Crossmatch Laboratory Results WBC 2.2 k/uL (3.8-10.6) L 03/26/17 04:10 RBC 2.71 m/uL (4.30-5.90) L 03/26/17 04:10 Hgb 8.8 gm/dL (13.0-17.5) L 03/26/17 04:10 Hct 26.7 % (39.0-53.0) L 03/26/17 04:10 MCV 98.3 fL (80.0-100.0) 03/26/17 04:10 MCH 32.5 pg (25.0-35.0) 03/26/17 04:10 MCHC 33.1 g/dL (31.0-37.0) 03/26/17 04:10 RDW 15.2 % (11.5-15.5) 03/26/17 04:10 Plt Count 37 k/uL (150-450) L* 03/26/17 04:10 Neutrophils % 75 % 03/26/17 04:10 Lymphocytes % 16 % 03/26/17 04:10 Monocytes % 5 % 03/26/17 04:10 Eosinophils % 0 % 03/26/17 04:10 Basophils % 0 % 03/26/17 04:10 Neutrophils # 1.7 k/uL (1.3-7.7) 03/26/17 04:10 Lymphocytes # 0.3 k/uL (1.0-4.8) L 03/26/17 04:10 Monocytes # 0.1 k/uL (0-1.0) 03/26/17 04:10 Eosinophils # 0.0 k/uL (0-0.7) 03/26/17 04:10 Basophils # 0.0 k/uL (0-0.2) 03/26/17 04:10 Differential Comment 03/25/17 05:22 Manual Slide Review Performed 03/24/17 05:24 Hypochromasia Slight 03/21/17 07:03 Poikilocytosis (manual Present 03/23/17 05:37 Anisocytosis (manual) Present 03/23/17 05:37 Macrocytosis Slight 03/24/17 05:24 Tear Drop Cells Present 03/21/17 07:03 Ovalocytes Present 03/21/17 07:03 PT 13.2 sec (9.0-12.0) H 03/20/17 04:26 INR 1.3 (<1.1) 03/20/17 04:26 APTT 24.3 sec (22.0-30.0) 03/20/17 04:26 Sample Site LRAD 03/26/17 16:56 ABG pH 7.48 (7.35-7.45) H 03/26/17 16:56 ABG pCO2 24 mmHg (35-45) L 03/26/17 16:56 ABG pO2 80 mmHg (83-108) L 03/26/17 16:56 ABG HCO3 18 mmol/L (21-25) L 03/26/17 16:56 ABG Total CO2 19 mmol/L (19-24) 03/26/17 16:56 ABG O2 Saturation 97.0 % (94-97) 03/26/17 16:56 ABG Base Excess -4.9 mmol/L 03/26/17 16:56 FiO2 30 % 03/26/17 16:56 Sodium 148 mmol/L (137-145) H 03/26/17 04:10 Potassium 4.6 mmol/L (3.5-5.1) 03/26/17 04:10 Chloride 121 mmol/L (98-107) H* 03/26/17 04:10 Carbon Dioxide 19 mmol/L (22-30) L 03/26/17 04:10 Anion Gap 8 mmol/L 03/26/17 04:10 BUN 22 mg/dL (9-20) H 03/26/17 04:10 Creatinine 0.81 mg/dL (0.66-1.25) 03/26/17 04:10 Est GFR (MDRD) Af Amer >60 (>60 ml/min/1.73 sqM) 03/26/17 04:10 Est GFR (MDRD) Non-Af >60 (>60 ml/min/1.73 sqM) 03/26/17 04:10 Glucose 132 mg/dL (74-99) H 03/26/17 04:10 POC Glucose (mg/dL) 120 mg/dL (75-99) H 03/26/17 17:47 POC Glu Freelance Patternmaker ID Mili Pat 03/26/17 17:[address] Glu mg/dL 134 mg/dL 03/24/17 05:24 Hemoglobin A1c 6.3 % (4.2-6.1) H 03/24/17 05:24 Plasma Lactic Acid Arnaldo 1.3 mmol/L (0.7-2.0) 03/18/17 21:10 Calcium 8.3 mg/dL (8.4-10.2) L 03/26/17 04:10 Phosphorus 2.5 mg/dL (2.5-4.5) 03/26/17 04:10 Magnesium 2.2 mg/dL (1.6-2.3) 03/26/17 04:10 Total Bilirubin 1.0 mg/dL (0.2-1.3) 03/19/17 03:12 AST 40 U/L (17-59) 03/19/17 03:12 ALT 50 U/L (21-72) 03/19/17 03:12 Alkaline Phosphatase 147 U/L (38-126) H 03/19/17 03:12 Troponin I 0.013 ng/mL (0.000-0.034) 03/19/17 03:12 Total Protein 5.9 g/dL (6.3-8.2) L 03/19/17 03:12 Albumin 3.0 g/dL (3.5-5.0) L 03/19/17 03:12 Urine Color Yellow 03/18/17 21:50 Urine Appearance Clear (Clear) 03/18/17 21:50 Urine pH 6.0 (5.0-8.0) 03/18/17 21:50 Ur Specific Bernard 1.029 (1.001-1.035) 03/18/17 21:50 Urine Protein Trace (Negative) H 03/18/17 21:50 Urine Glucose (UA) Negative (Negative) 03/18/17 21:50 Urine Ketones Negative (Negative) 03/18/17 21:50 Urine Blood Negative (Negative) 03/18/17 21:50 Urine Nitrite Negative (Negative) 03/18/17 21:50 Urine Bilirubin Negative (Negative) 03/18/17 21:50 Urine Urobilinogen <2.0 mg/dL (<2.0) 03/18/17 21:50 Ur Leukocyte Esterase Negative (Negative) 03/18/17 21:50 Vancomycin Trough 25.1 ug/mL 03/25/17 22:38 Blood Type O Negative 03/25/17 09:56 Blood Type Recheck No 03/25/17 09:56 Antibody Screen NEGATIVE 03/25/17 09:56 Crossmatch See Detail 03/25/17 09:56 Transfuse Platelets 03/24/17 03/24/17 08:53 Spec Expiration Date 03/28/2017 - 1801 03/25/17 09:56 Microbiology 03/18/17 21:10 Blood Blood Culture - Final No Growth after 144 hours 03/22/17 12:17 Sputum Gram Stain - Final 03/22/17 12:17 Sputum Sputum Culture - Final 03/21/17 11:35 Groin Gram Stain - Final 03/21/17 11:35 Groin Wound Culture - Final Methicillin resist S. aureus 03/20/17 12:22 Abdomen Gram Stain - Final 03/20/17 12:22 Abdomen Wound Culture - Final Methicillin resist S. aureus Enterococcus faecalis 03/18/17 21:50 Urine,Voided Urine Culture - Final Assessment and Plan (1) Febrile neutropenia Narrative/Plan: 76-year-old male presents the emergency center with evidence of feeling quite poorly. Having increasing difficulties with swallowing due to significant pain. Has evidence of some radiation esophagitis as well as mucositis at this time. Has had some response to Dilaudid and cool solution. These will continue. Oncology is following. Radiation oncology also following. Emollient can be applied to the irritation to the skin For the febrile neutropenia antibiotic therapy with cefepime and vancomycin is being utilized because of the extensive mucositis vancomycin is indicated. Cultures are in process Supportive care Fluid resuscitation is occurring Patient has multiple small skin lesions likely related to the current chemotherapy. They are not necrotic and do not appear to be ecthyma gangrenosum at this time, more blisterlike. Given her irritation symptoms and can be applied to these areas and when improved the hydrocolloid can be utilized. Cultures are processing being monitored. Given the mucositis the patient is at risk of underlying fungal infection and with this micafungin is utilized. Albumin is low nutritional supplementation and process Patient now extubated. Seems to doing well on the short postaxillary timeframe. Also noted that the white blood cell count has gone up to 2.2. Likely seems to be improving his febrile neutropenia. In recovery of his neutropenia is occurring. He has evidence of the wounds and as he improves of the next day or so if no other troubles occur the micafungin will be discontinued. He'll remain on vancomycin therapy for approximately the next week. And as his neutropenia completely resolves within be able to transition off of cefepime. Continue local wound care as before. Improved erythema and induration to all the lesions now that his white count has recovered. Status: Acute (2) Small cell lung cancer Status: Chronic (3) Atrial flutter with rapid ventricular response Status: Acute (4) Anemia Status: Acute
[2017-03-27] MEDS: DILTIAZEM 125 MG in SODIUM CHLORIDE 0.9% 100 ML IV SCH ×3 (00:18→23:51)
[2017-03-27] MEDS: CEFEPIME 2 GM in SODIUM CHLORIDE 0.9% 50 ML IVPB SCH ×4 (00:23→23:51)
[2017-03-27] MEDS: HYDROmorphone 1 MG/ML 1 ML SYRINGE IVP PRN ×2 (00:24→04:08)
[2017-03-27] MEDS: INSULIN LISPRO (humaLOG) 300 UNIT/3 ML VIAL SQ SCH ×5 (00:26→23:52)
[2017-03-27 00:43] LABS: Glucose,Whole Blood 109 mg/dL (75-99)
[2017-03-27] MEDS: SODIUM CHLORIDE 0.9% 1,000 ML IV SCH (04:08)
[2017-03-27 04:54] LABS: CH 32.5; CHCM 33.4; HDW 3.13; HGB 8.8 gm/dL (13.0-17.5); MCH 33.2 pg (25.0-35.0); MCV 97.6 fL (80.0-100.0); Mean Platelet Volume 8.2; RBC 2.66 m/uL (4.30-5.90)
[2017-03-27 05:02] LABS: Anion Gap 7 mmol/L; Blood Urea Nitrogen 24 mg/dL (9-20); Calcium 8.5 mg/dL (8.4-10.2); Carbon Dioxide 21 mmol/L (22-30); Glucose 105 mg/dL (74-99); Magnesium 1.9 mg/dL (1.6-2.3); Non-African American GFR(MDRD) >60 (>60 ml/min/1.73 sqM); Phosphorous 2.8 mg/dL (2.5-4.5); Potassium 4.3 mmol/L (3.5-5.1); Sodium 148 mmol/L (137-145)
[2017-03-27 05:04] LABS: Chloride 120 mmol/L (98-107)
[2017-03-27 06:06] LABS: Glucose,Whole Blood 106 mg/dL (75-99)
[2017-03-27] MEDS: VANCOMYCIN 1,500 MG in SODIUM CHLORIDE 0.9% 250 ML IVPB SCH (06:07)
--- NOTE | 2017-03-27 07:09 | XR ---
EXAMINATION TYPE: XR chest 1V portable DATE OF EXAM: 03/27/2017 6:40 AM HISTORY: Tube placement. REFERENCE: Previous study dated 03/26/2017. FINDINGS: There has been a midline sternotomy. There is unipolar pacemaker place on the left. The patient has been extubated. The patient's NG tube is been removed. The heart is mildly prominent. There is mild vascular congestion without raheem edema. Pleural spaces are clear. IMPRESSION: 1. MILD CARDIOMEGALY. 2. VASCULAR CONGESTION WITHOUT RAHEEM EDEMA.
[2017-03-27] MEDS: IPRATROPIUM-ALBUTEROL 3 ML NEB INHALATION SCH ×4 (08:08→19:56)
[2017-03-27] MEDS: SYMBICORT 160-4.5 MCG INHALER INHALATION SCH (08:08)
[2017-03-27] MEDS: MAGNESIUM SULFATE-D5W PMX 1 GM in DEXTROSE/WATER 1 100ML.BAG IVPB SCH ×2 (08:21→09:45)
[2017-03-27] MEDS: PANTOPRAZOLE 40 MG/10 ML VIAL IV SCH ×2 (08:21→15:41)
[2017-03-27] MEDS: ZINC OXIDE 20% OINT 28.4 GM TUBE TOPICAL SCH ×3 (08:23→21:10)
[2017-03-27] MEDS: ATORVASTATIN 80 MG TAB PO SCH (08:23)
[2017-03-27] MEDS: MAG HYDROX/AL HYDROX/SIMETH 30 ML, LIDOCAINE VISCOUS 30 ML, diphenhydrAMINE ELIXIR 75 M... PO SCH ×12 (08:23→21:11)
[2017-03-27] MEDS: SPIRONOLACTONE 25 MG TAB PO SCH (08:23)
[2017-03-27] MEDS: OXYBUTYNIN CHLORIDE 5 MG TAB PO SCH ×4 (08:24→21:09)
[2017-03-27] MEDS: MULTIVITAMINS, THERA 1 EACH TAB PO SCH (08:24)
[2017-03-27] MEDS: VITAMIN E (DL,TOCOPHERYL ACET) 400 UNIT CAP PO SCH (08:24)
[2017-03-27] MEDS: METOPROLOL TARTRATE 25 MG TAB PO SCH ×3 (08:24→21:09)
[2017-03-27] MEDS: DOCUSATE ORAL SOLN 100 MG/10 ML CUP PO SCH ×3 (08:24→21:09)
[2017-03-27] MEDS: PYRIDOXINE 50 MG TAB PO SCH (08:25)
[2017-03-27] MEDS: CHOLECALCIFEROL 1,000 UNIT TAB PO SCH (08:25)
[2017-03-27] MEDS: HYDROCORTISONE 1% CREAM 454 GM JAR TOPICAL SCH ×2 (10:58→21:10)
[2017-03-27] MEDS: GABAPENTIN 300 MG CAP PO SCH ×4 (10:59→21:09)
[2017-03-27] MEDS: FERROUS SULFATE 325 MG TAB PO SCH (10:59)
[2017-03-27] MEDS: DEXTROSE 5% IN WATER 1,000 ML IV SCH ×2 (11:00→23:52)
--- NOTE | 2017-03-27 12:01 | P.PN ---
Subjective Principal diagnosis: Acute neutropenic sepsis and respiratory failure 76-year-old male patient who is quite ill and he comes into the hospital because of various medical problems and chronic shortness of breath and difficulty in swallowing and chest congestion and generalized weakness and fatigue. The patient also had limited changes in his mentation. Note that the patient has history of coronary artery disease and he has undergone previous carotid bypass surgery 2014. 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 He has also peripheral vascular disease and has undergone stenting of the left lower extremity. He was recently diagnosed having small cell lung cancer. Diagnosed was established by bronchoscopy as the patient was found to have endobronchial tumor and based on the limited staging of the small cell lung cancer the patient was referred to radiation oncology and hematology oncology. A patient was started on radiation therapy and he was given a total of 10 sessions of radiation therapy and he has another 10 sessions to go. He was also given the first session of systemic chemotherapy with a combination of carboplatinum and TAPPER BIT-16. Note that the patient was doing well to around a few days ago and he started developing worsening in his mucositis and swallowing. His chest started becoming more congested. He was unable to swallow. He became progressively more weak and dehydrated. The family and himself denied any episodes of aspiration. He denied having any nausea vomiting or diarrhea. He reported burning sensation in his upper chest. At the same time he has noted some purulent nodules arising in his groin and suprapubic area. These are small nodular lesions that are measuring 1-2 cm in size which have some central purulent material draining. No dysuria. No frequency. No urgency. He still producing urine output. In the burst department the patient was found to be also in atrial fibrillation with rapid ventricular response and he was started on IV heparin and IV Cardizem. Rate is still tachycardic in the 120 range. At the same time the patient was found to be neutropenic and pancytopenic. His white cell count was at 0.2. He is single was 8.4. His platelet count at 48, 000. His creatinine was at 1.2. The patient was started on IV fluids. He was given IV fluid boluses and currently is on any normal saline infusion rate of 1 25 mL an hour. The patient is also on a combination of cefepime and vancomycin. No fever at this point. No headache. No neck stiffness. On 03/20/2017 I'm seeing this patient in follow-up in the intensive care unit. He is doing slightly better. Still unable to swallow and still having burning sensation in his throat and upper chest related to severe mucositis. He is afebrile. He is hemodynamically stable. He is on broad-spectrum antibiotics. All of the cultures of been negative. Still pancytopenic and the white cell count today is at 0.3 with a hemoglobin of 8.7 and platelet count of 23,000. He is still in atrial fibrillation with rate being controlled. He is on no anti -coagulation based on his underlying thrombocytopenia. He has a component of non-anion gap metabolic acidosis. His bicarb level is at 17. CAT scan of the brain was done today and the patient had shown mild diffuse cerebral atrophy with mild to moderate chronic small vessel ischemic changes. No other enhancing lesions. Family is at the bedside. The patient is lethargic and still profoundly weak. On 03/21/2017 I'm seeing this patient in follow-up in the intensive care units. Very much delirious and overnight very much agitated for which she was given Haldol and Ativan. Bit more comfortable and calm her today this morning. Family is at the bedside. Remains profoundly pancytopenic without any major recovery in his hematologic profile. Afebrile and hemodynamically stable covered with broad-spectrum antibiotics. All of the cultures have not indicated any specific microbial growth for now. ID is on the case. The pustules and the groin and suprapubic area remains unchanged. There are several of them at least 6 and only a few had some purulent center which seems to be much more dried up on today's evaluation. No bleeding. Platelet counts have dropped down to 13,000. Vancomycin trough is at 17.8. On 03/22/2017 I'm seeing this patient in follow-up. The patient is quite lethargic. He was agitated throughout the night. He had required several doses of Haldol and Ativan. He is per much sedated at this point and seems to be more comfortable. I was told that overnight he was very agitated and difficult to control. He is on 2 point restraints at this point. Hematologically, the patient is still pancytopenic and he still being treated for neutropenic fevers. He has a white cell count of 0.4 with a hemoglobin of 7.7 and platelet count of 17,000. He is afebrile. The cultures obtained from the groin wounds/pustules axle turner to be MRSA and there may be also group D enterococcus. Blood cultures of been negative. Urine culture been negative. The patient is on no pressors. The patient is still on a combination of cefepime and vancomycin and micafungin regarding his neutropenic sepsis. ID is on the case. On 03/23/2017, the patient remains intubated on the mechanical ventilator. The patient sedated with Diprivan. The patient currently is an assist-control mode of ventilation, etc. rate of 20, tidal volume of 500, FiO2 of 40% and a PEEP of 5. The blood gases from this morning showed a pH of 7.37 with a pCO2 of 25 and pO2 of 144. The patient's chest x-ray shows a small right-sided pleural effusion. ET tube is in a good location. The patient is well sedated. The patient is receiving enteral feeding for nutritional support. The patient is on no pressors at this point and he is hemodynamically stable. The patient has been found to have MRSA in the suprapubic pustules and the patient is currently on a combination of vancomycin, Zosyn and micafungin. He remains pancytopenic and there is no improvement in his hematologic profile. White cell count remains at 0.5 with a hemoglobin of 8.6 and a platelet count of 12,000. CAT scan of the bilateral lower extremity was done yesterday and the patient has some enlarged left exterior iliac chain lymph nodes as well as bilateral prominent but nonenlarged inguinal femoral lymph node chains. There is some focal inflammatory changes along the anterior right groin area likely representing an area of cellulitis. No abscesses could be found. No evidence of any necrotizing fasciitis at this point. The patient is tolerating his tube feeds. He is calm and comfortable at this point. No other significant events overnight. On 03/24/2017, patient remains intubated, on mechanical ventilation. His ventilator settings were reviewed, FiO2 is 30%, assist control rate of 20 tidal volume of 500 and PEEP of 5. ABG showed a pO2 of 156 pCO2 of 25 pH of 7.40. Other labs were reviewed, WBC count remains low at 0.4, hemoglobin is 8.3, platelets are 11,000. Basic metabolic profile showed sodium of 145 chloride is 121 patient has a hyperchloremic metabolic acidosis non-anion gap. Chest x-ray showed mild cardiomegaly and left basilar air space disease with small bilateral pleural effusions. Antibiotics remain to include cefepime, micafungin , and vancomycin. Patient remains sedated on propofol drip, hemodynamically seems to be relatively stable. Wound culture has been positive for methicillin staph aureus and Enterococcus faecalis. Both are sensitive to vancomycin. Patient was reevaluated today on 03/25/2017, remains intubated, on mechanical ventilation, his weaning parameters were noted to be poor today, and his respirator rate on CPAP was in the high 50s. Hence no further attempts of weaning was made. ABG showed a pO2 of 94 pCO2 of 26 pH of 7.44. His vent settings are tidal volume of 500 FiO2 of 30% assist control rate of 16 and PEEP is 5. Chest x-ray showed stable by basilar atelectasis or infiltrates. And mild central venous congestion. All labs were reviewed, WBC count is 0.8 today , hemoglobin is 7.8 sodium is 147 chloride is 120 bicarb is 18, renal profile is normal. Patient was earlier on propofol drip, however he was noted to be appropriate when the propofol was discontinued, and a short the CPAP trial was given. Reevaluated today on 03/26/2017, patient remains on mechanical ventilation, intubated, patient is presently on propofol which I plan to discontinue and at least give the patient weaning parameters and possibly a weaning trial. However patient is in atrial flutter, rate is 140, and I plan to reconsult cardiology regarding his atrial flutter, in the meantime I will start the patient on Cardizem with 10 mg bolus and 10 mg drip per hour. Ventilator settings were reviewed, he is presently on assist control rate of 16 tidal volume of 500 FiO2 of 30%, and PEEP is 5. ABG showed a pO2 of 113 pCO2 of 26 pH of 7.45. CBC is showing improvement, WBC count is 2.2 hemoglobin is 8.8 platelets remained low at 57,000. Sodium is 148, hence I will recommend free water flushes. Renal profile is normal. Blood cultures have been negative with cultures have been positive for MRSA and Enterococcus faecalis. Antibiotics remain the same. On 03/27/2017, patient is now off mechanical ventilation, he was extubated yesterday uneventfully. I was actually in the ICU when the patient was extubated last night. He did quite well, tolerated the extubation and continues to tolerate the extubation well. Patient is very appropriate, in no form of respiratory distress. Labs were reviewed, WBC count is up to 4.0 hemoglobin is 8.8 and his platelets are 27,000. His electrolytes continued to show hypernatremia and hyperchloremia, hence I will switch his main IV fluid to D5W at 75 mL per hour. Chest x-ray showed mild cardiomegaly and mild vascular congestion, no evidence of raheem edema. Objective - Vital Signs Vital signs: Vital Signs Temp 98.2 F 03/27/17 11:00 Pulse 79 03/27/17 11:48 Resp 20 03/27/17 11:00 BP 138/64 03/27/17 11:00 Pulse Ox 99 03/27/17 11:00 Intake & Output 03/26/17 03/27/17 03/27/17 18:59 06:59 18:59 Intake Total 2718.780 1018.25 720.667 Output Total 2860 1310 750 Balance -141.220 -291.75 -29.333 Weight 95.1 kg 93.4 kg 93.4 kg Intake: Intake, IV Titration 4651.544 1415.25 480.667 Amount Cefepime 2 gm In Sodium 100 50 Chloride 0.9% 50 ml @ 100 mls/hr IVPB Q8H [facility] Rx#: [id number] Dextrose 5% in Water 1, 150 000 ml @ 75 mls/hr IV . [id number] [facility] Rx#:[id number] Diltiazem 125 mg In 56.750 68.25 80.667 Sodium Chloride 0.9% 100 ml @ 10 MG/HR 10 mls/hr IV .[id number] [facility] Rx#: [id number] Magnesium Sulfate-D5w Pmx 100 1 gm In Dextrose/Water 1 100ml.bag @ 100 mls/hr IVPB Q1H [facility] Rx#: [id number] Micafungin 100 mg In 100 Sodium Chloride 0.9% 100 ml @ 100 mls/hr IVPB DAILY@1800 [facility] Rx#: [id number] Propofol 500 mg In Empty 92.03 Bag 1 bag @ Titrate IV . Q0M [facility] Rx#:[id number] Sodium Chloride 0.9% 1, 900 900 150 000 ml @ 75 mls/hr IV . [id number] [facility] Rx#:[id number] Oral 240 Tube Feeding 1020 Other 450 Output: Urine 2860 1310 750 Other: Voiding Method Indwelling Catheter Indwelling Catheter Indwelling Catheter # Voids 1 # Bowel Movements 1 1 - Exam Physical Exam: Revealed a 76-year-old white male in no distress. HEENT:[Neck is supple.] [No neck masses.] [No thyromegaly.] [No JVD.] Chest: [Diminished breath sounds at the bases, no crackles, no rhonchi, no wheezes.] Cardiac Exam: [Normal S1 and S2, no S3 gallop, no murmur. Patient remains in atrial flutter, but rate seems to be better controlled.] Abdomen: [Soft, nontender, no megaly, no rebound, no guarding, normal bowel sounds.] Extremities: [No clubbing, 1+ bipedal edema, no cyanosis.] Neurological Exam: [No focal neurologic deficit.] - Labs CBC & Chem 7: 03/27/17 04:27 03/27/17 04:27 Labs: Abnormal Lab Results - Last 24 Hours (Table) 03/25/17 03/26/17 03/26/17 Range/Units 09:56 12:05 15:40 RBC (4.30-5.90) m/uL Hgb (13.0-17.5) gm/dL Hct (39.0-53.0) % Plt Count (150-450) k/uL ABG pH (7.35-7.45) ABG pCO2 26 L (35-45) mmHg ABG pO2 79 L (83-108) mmHg ABG HCO3 18 L (21-25) mmol/L ABG Total CO2 18 L (19-24) mmol/L Sodium (137-145) mmol/L Chloride (98-107) mmol/L Carbon Dioxide (22-30) mmol/L BUN (9-20) mg/dL Glucose (74-99) mg/dL POC Glucose (mg/dL) 134 H (75-99) mg/dL Crossmatch See Detail 03/26/17 03/26/17 03/27/17 Range/Units 16:56 17:47 00:23 RBC (4.30-5.90) m/uL Hgb (13.0-17.5) gm/dL Hct (39.0-53.0) % Plt Count (150-450) k/uL ABG pH 7.48 H (7.35-7.45) ABG pCO2 24 L (35-45) mmHg ABG pO2 80 L (83-108) mmHg ABG HCO3 18 L (21-25) mmol/L ABG Total CO2 (19-24) mmol/L Sodium (137-145) mmol/L Chloride (98-107) mmol/L Carbon Dioxide (22-30) mmol/L BUN (9-20) mg/dL Glucose (74-99) mg/dL POC Glucose (mg/dL) 120 H 109 H (75-99) mg/dL Crossmatch 03/27/17 03/27/17 03/27/17 Range/Units 04:27 04:27 06:05 RBC 2.66 L (4.30-5.90) m/uL Hgb 8.8 L (13.0-17.5) gm/dL Hct 26.0 L (39.0-53.0) % Plt Count 27 L* (150-450) k/uL ABG pH (7.35-7.45) ABG pCO2 (35-45) mmHg ABG pO2 (83-108) mmHg ABG HCO3 (21-25) mmol/L ABG Total CO2 (19-24) mmol/L Sodium 148 H (137-145) mmol/L Chloride 120 H* (98-107) mmol/L Carbon Dioxide 21 L (22-30) mmol/L BUN 24 H (9-20) mg/dL Glucose 105 H (74-99) mg/dL POC Glucose (mg/dL) 106 H (75-99) mg/dL Crossmatch Assessment and Plan Plan: 1 neutropenic sepsis. The patient is afebrile however he has very source of infection at these to be considered including the lungs, esophagitis and no other pustular lesions in the suprapubic and inguinal area which could be potentially staphylococcal or fungal. The wound cultures axle turner to be positive for enterococcus and MRSA. The patient remains on a combination of cefepime, vancomycin and micafungin. 2 limited stage small cell lung cancer status post chemoradiation therapy. The patient has received one session of systemic chemotherapy with carboplatinum and TAPPER BIT-16 and 10 sessions of radiation therapy 3 esophagitis/mucositis secondary to radiation therapy with secondary difficulty in swallowing. Rule out candidal esophagitis 4 pancytopenia secondary to chemotherapy. . resolving, and seems to be improving over the last couple of days. 5 Atrial flutter , being managed by cardiology on the case. rate seems to be better controlled today. 6 CHF with an ejection fraction of 35% 7 coronary artery disease with multivessel involvement and the patient is status post carotid bypass surgery 8 history of AICD placement 9 dysphagia, currently nothing by mouth 10 acute kidney injury, improved in the creatinine normalized 11 peripheral vascular disease with previous vascular intervention of the left lower extremity 12 prostate cancer status post prostatectomy 13 severe peripheral neuropathy 14 depression/anxiety 15 coronary artery bypass surgery, history of 16 acute respiratory failure secondary to above-mentioned comorbidities currently intubated on a mechanical ventilator. 17 hyperchloremic hypernatremia and the patient is receiving free water flushes Recommendation: patient was extubated uneventfully yesterday, he seems to be tolerating the extubation well, no major issues since he was extubated. he seems to be very appropriate neurologically, he is following instructions, able to cough and clear secretions nicely, I plan to continue present medications, and hopefully arrange for him to be transferred to a monitored bed on [facility] either later today or in a.m. critical care time is 32 minutes. Time with Patient: Greater than 30
[2017-03-27 12:09] LABS: Glucose,Whole Blood 164 mg/dL (75-99)
[2017-03-27] MEDS: FILGRASTIM-SNDZ 480 MCG/0.8 ML SYRINGE SQ SCH (13:14)
--- NOTE | 2017-03-27 15:22 | P.PN ---
Subjective Patient is a 76-year-old male, patient of Dr. Mulligan in the outpatient setting, with medical history significant for paroxysmal atrial fibrillation, GERD, hyperlipidemia, hypertension, coronary artery disease status post coronary artery bypass grafting in 2014 followed by stenting to the left SFA in August 2015, myocardial infarction, ischemic cardiomyopathy status post placement of internal cardiac defibrillator, prostate cancer status post prostatectomy in 1998, peripheral vascular disease status post stent placement to left lower extremity, osteoarthritis, severe peripheral neuropathy, and remote nicotine dependence. 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 Per chart and daughter, patient had been experiencing trouble with swallowing and increased shortness of breath over the last couple of days prior to admission in addition to having generalized weakness, fatigue, and shakiness. Patient originally presented to [facility] where he underwent a CTA of the chest with evidence of cardiomegaly, right upper lung nodule and right hilar invasive mass with thoracic adenopathy; and moderate to severe thickening of the mid esophagus. Patient was transferred to [facility]. In the emergency department, patient was found to have evidence of febrile neutropenia and pancytopenia with evidence of acute renal failure. Patient was admitted to the intensive care unit and consults were requested for Dr. Figueroa for oncology service , Dr. Courtney for pulmonary service, cardiology service, and Dr. Gomez for infectious disease service. While in the intensive care unit, patient's respiratory status declined requiring ventilatory support. Patient did have positive wound cultures for MRSA for blister type wounds. Patient is evaluated in the intensive care unit. Patient was extubated on 03/26 in the afternoon and is currently on 4 L nasal cannula. Patient is slightly confused and very weak. Patient complains of a runny nose but otherwise has no other specific complaints. Patient remains in atrial flutter with controlled ventricular rate, patient continues on IV Cardizem. Patient is tolerating a clear liquid diet. Patient had 3 bowel movements last night. Chest x-ray from today with mild cardiomegaly and vascular congestion without raheem edema. WBC increased to 4. Hemoglobin stable at 8.8. Platelets decreased to 27. Sodium unchanged at 148. IV fluids have been changed to D5W at 75 mL an hour. Objective - Vital Signs Vital signs: Vital Signs Temp 98.2 F 03/27/17 11:00 Pulse 91 03/27/17 14:00 Resp 14 03/27/17 14:00 BP 144/72 03/27/17 14:00 Pulse Ox 99 03/27/17 14:00 Intake & Output 03/26/17 03/27/17 03/27/17 18:59 06:59 18:59 Intake Total 2718.780 1018.25 1020.667 Output Total 2860 1310 1430 Balance -141.220 -291.75 -409.333 Weight 95.1 kg 93.4 kg 93.4 kg Intake: Intake, IV Titration 3188.183 3033.25 780.667 Amount Cefepime 2 gm In Sodium 100 50 Chloride 0.9% 50 ml @ 100 mls/hr IVPB Q8H [facility] Rx#: [id number] Dextrose 5% in Water 1, 450 000 ml @ 75 mls/hr IV . [id number] [facility] Rx#:[id number] Diltiazem 125 mg In 56.750 68.25 80.667 Sodium Chloride 0.9% 100 ml @ 10 MG/HR 10 mls/hr IV .[id number] [facility] Rx#: [id number] Magnesium Sulfate-D5w Pmx 100 1 gm In Dextrose/Water 1 100ml.bag @ 100 mls/hr IVPB Q1H [facility] Rx#: [id number] Micafungin 100 mg In 100 Sodium Chloride 0.9% 100 ml @ 100 mls/hr IVPB DAILY@1800 [facility] Rx#: [id number] Propofol 500 mg In Empty 92.03 Bag 1 bag @ Titrate IV . Q0M [facility] Rx#:[id number] Sodium Chloride 0.9% 1, 900 900 150 000 ml @ 75 mls/hr IV . [id number] [facility] Rx#:[id number] Oral 240 Tube Feeding 1020 Other 450 Output: Urine 2860 1310 1430 Other: Voiding Method Indwelling Catheter Indwelling Catheter Indwelling Catheter # Voids 1 # Bowel Movements 1 1 - Exam GENERAL: Pt is awake and alert but slightly confused, appears in no acute distress. HEAD: Atraumatic, normocephalic. EYES: Pupils equal, round, and reactive to light, sclera anicteric, conjunctiva are normal. ENT: Moist mucous membranes. NECK: Supple without lymphadenopathy or JVD. Trachea midline. LUNGS: Breath sounds diminished with scattered rhonchi to anterior lung kohler. HEART: Heart S1, S2, no S3 or S4. Regular irregular. No murmurs, rubs or gallops. ABDOMEN: Soft, nondistended, normoactive bowel sounds. No guarding, no rebound. No masses or organomegaly appreciated. EXTREMITIES: 1+ peripheral pulses. 1+ Peripheral edema to upper and lower extremities. NEUROLOGICAL: Pt alert and awake, speech slow but coherent. SKIN: Warm, dry. - Labs CBC & Chem 7: 03/27/17 04:27 03/27/17 04:27 Labs: Abnormal Lab Results - Last 24 Hours (Table) 03/25/17 03/26/17 03/26/17 Range/Units 09:56 15:40 16:56 RBC (4.30-5.90) m/uL Hgb (13.0-17.5) gm/dL Hct (39.0-53.0) % Plt Count (150-450) k/uL ABG pH 7.48 H (7.35-7.45) ABG pCO2 26 L 24 L (35-45) mmHg ABG pO2 79 L 80 L (83-108) mmHg ABG HCO3 18 L 18 L (21-25) mmol/L ABG Total CO2 18 L (19-24) mmol/L Sodium (137-145) mmol/L Chloride (98-107) mmol/L Carbon Dioxide (22-30) mmol/L BUN (9-20) mg/dL Glucose (74-99) mg/dL POC Glucose (mg/dL) (75-99) mg/dL Crossmatch See Detail 03/26/17 03/27/17 03/27/17 Range/Units 17:47 00:23 04:27 RBC (4.30-5.90) m/uL Hgb (13.0-17.5) gm/dL Hct (39.0-53.0) % Plt Count (150-450) k/uL ABG pH (7.35-7.45) ABG pCO2 (35-45) mmHg ABG pO2 (83-108) mmHg ABG HCO3 (21-25) mmol/L ABG Total CO2 (19-24) mmol/L Sodium 148 H (137-145) mmol/L Chloride 120 H* (98-107) mmol/L Carbon Dioxide 21 L (22-30) mmol/L BUN 24 H (9-20) mg/dL Glucose 105 H (74-99) mg/dL POC Glucose (mg/dL) 120 H 109 H (75-99) mg/dL Crossmatch 03/27/17 03/27/17 03/27/17 Range/Units 04:27 06:05 12:07 RBC 2.66 L (4.30-5.90) m/uL Hgb 8.8 L (13.0-17.5) gm/dL Hct 26.0 L (39.0-53.0) % Plt Count 27 L* (150-450) k/uL ABG pH (7.35-7.45) ABG pCO2 (35-45) mmHg ABG pO2 (83-108) mmHg ABG HCO3 (21-25) mmol/L ABG Total CO2 (19-24) mmol/L Sodium (137-145) mmol/L Chloride (98-107) mmol/L Carbon Dioxide (22-30) mmol/L BUN (9-20) mg/dL Glucose (74-99) mg/dL POC Glucose (mg/dL) 106 H 164 H (75-99) mg/dL Crossmatch Assessment and Plan Plan: Impression: 1. Neutropenic sepsis suspect secondary to recent chemotherapy and radiation for limited stage small cell lung carcinoma post chemoradiation therapy. Wound cultures positive for MRSA. Patient has received one session of systemic chemotherapy with carboplatinum and [employer]-16 and 10 sessions of radiation therapy. 2. Pancytopenia suspect secondary to anti-neoplastic chemotherapy. 3. Atrial flutter, ventricular response control. 4. Acute renal failure, present on admission, suspect secondary to hypovolemia and hypoperfusion, secondary to dehydration, resolved. 5. Elevated blood sugars on admission. 6. Elevated alkaline phosphatase, present on admission. 7. Dysphagia, present on admission, suspect secondary to esophagitis and mucositis secondary to recent chemotherapy and radiation with possibility of Traci esophagitis. 8. Chronic renal failure, stage III. 9. Paroxysmal atrial fibrillation maintained on Eliquis in the outpatient setting. 10. Hyperlipidemia. 11. Hypertension. 12. Chronic systolic heart failure, ischemic cardiomyopathy status post AICD placement. Ejection fraction 35%. 13. Coronary artery disease status post coronary artery bypass grafting followed by stenting. 14. History of prostate cancer status post prostatectomy. 15. History of GERD. 16. Severe peripheral vascular disease status post stenting to right lower extremity. 17. Severe peripheral neuropathy. 18. Osteoarthritis. 19. History of anxiety and depression, stable. 20. History of nicotine dependence. 21. Acute respiratory failure secondary to above mentioned comorbidities, currently extubated. 22. Anemia, chemo induced. 23. Hypernatremia. Plan: Continue to monitor patient. Continue IV antibiotics per infectious disease recommendations. Continue current medications. IV fluids has been changed to D5W at 75 mL an hour. Continue pulmonary toileting. Continue supplemental oxygen to keep oxygen saturation greater than 92%. Continue supportive treatment. Continue to follow with consultants. Continue GI and DVT prophylaxis. Repeat CBC, CMP. Critical care time spent with patient less than 30 minutes. The above impression and plan have been discussed and directed by Dr. Mulligan. Carmel LACEY acting as scribe for Isaak.
[2017-03-27 17:08] LABS: Glucose,Whole Blood 188 mg/dL (75-99)
[2017-03-27] MEDS: MICAFUNGIN 100 MG in SODIUM CHLORIDE 0.9% 100 ML IVPB SCH (17:09)
--- NOTE | 2017-03-27 20:50 | P.PN ---
Subjective Principal diagnosis: Febrile neutropenia 76-year-old male with a known history of small cell lung carcinoma who is been undergoing chemoradiation. Presents emergency center with increasing shortness of breath increasing weakness, increasing fatigue and increasing difficulty with swallowing. He was evaluated by bronchoscopy and endobronchial tumor was noted. She related it was a limited stage small cell lung carcinoma. In counseling and started radiation therapy with concomitant carboplatinum and [employer]-16. 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 Decreasing oral intake and increasing weakness. He now presents with evidence of fever, neutropenia and significant dehydration. He is being transferred from the emergency center to the intensive care unit given his atrial fibrillation and hypotension. He has a long-standing history of coronary artery disease atrial fibrillation as well as BPH chronic renal disease and peripheral vascular disease. Is related that he does have a low ejection fraction of 30-35%. His atrial fibrillation is chronic but his rate was quite elevated earlier. With resuscitation and diltiazem drip he has improved. Was having severe pain with Dilaudid and viscous lidocaine he has had some improvement of his status. Patient has remained extubated. Sitting upright. Definitely feeling better. Taking in nutrients. Speech is a bit slow and delayed which family relates is not different. Objective - Vital Signs Vital signs: Vital Signs Temp 97.8 F 03/27/17 20:00 Pulse 79 03/27/17 20:00 Resp 19 03/27/17 20:00 BP 149/67 03/27/17 20:00 Pulse Ox 100 03/27/17 20:00 Intake & Output 03/27/17 03/27/17 03/28/17 06:59 18:59 06:59 Intake Total 1018.25 1615.667 250 Output Total 1310 2305 295 Balance -291.75 -689.333 -45 Weight 93.4 kg 93.4 kg Intake: Intake, IV Titration 1018.25 1155.667 250 Amount Cefepime 2 gm In Sodium 50 50 Chloride 0.9% 50 ml @ 100 mls/hr IVPB Q8H [facility] Rx#: [id number] Dextrose 5% in Water 1, 675 250 000 ml @ 75 mls/hr IV . [id number] [facility] Rx#:[id number] Diltiazem 125 mg In 68.25 80.667 Sodium Chloride 0.9% 100 ml @ 10 MG/HR 10 mls/hr IV .[id number] [facility] Rx#: [id number] Magnesium Sulfate-D5w Pmx 100 1 gm In Dextrose/Water 1 100ml.bag @ 100 mls/hr IVPB Q1H [facility] Rx#: [id number] Micafungin 100 mg In 100 Sodium Chloride 0.9% 100 ml @ 100 mls/hr IVPB DAILY@1800 [facility] Rx#: [id number] Sodium Chloride 0.9% 1, 900 150 000 ml @ 75 mls/hr IV . [id number] [facility] Rx#:[id number] Oral 460 Output: Urine 1310 2305 295 Other: Voiding Method Indwelling Catheter Indwelling Catheter Indwelling Catheter # Voids 1 # Bowel Movements 1 1 - Exam 76-year-old male who appears to be acutely ill. Extubated HEENT: Anicteric conjunctiva are pink and moist nasal mucosa grossly intact without significant lesions, no significant lesions of the oral cavity Neck: The neck is supple without significant lymphadenopathy or thyromegaly. Lungs: Symmetric air entry is noted. Basilar crackles are noted. Expiratory wheezes are scattered no bronchial sounds Heart: Irregularly irregular rate about 120. Soft S4 no murmur click or rub is noted Abdomen: Positive bowel sounds soft and nontender without palpable masses or organomegaly. There was no guarding or rebound. Extremities: Extremities have some generalized edema.. Skin on the interior aspect of both thighs, as well as anterior aspect of both thighs and lower abdominal wall or multiple small skin lesions that have developed since he's been on chemotherapy. There is some induration around these sites. There is no expressible purulence. They've improved in the last day. Some evidence of some mild erythema to the anterior chest wall as well to his back from initiation of the recent radiation therapy. Neurologically he is No longer sedated. Calm and cooperative. Does have generalized weakness. The speech is understandable but somewhat slow. The family relates this is his pattern as of late. Not a new finding. - Labs CBC & Chem 7: 03/27/17 04:27 03/27/17 04:27 Labs: Abnormal Lab Results - Last 24 Hours (Table) 03/27/17 03/27/17 03/27/17 Range/Units 00:23 04:27 04:27 RBC 2.66 L (4.30-5.90) m/uL Hgb 8.8 L (13.0-17.5) gm/dL Hct 26.0 L (39.0-53.0) % Plt Count 27 L* (150-450) k/uL Sodium 148 H (137-145) mmol/L Chloride 120 H* (98-107) mmol/L Carbon Dioxide 21 L (22-30) mmol/L BUN 24 H (9-20) mg/dL Glucose 105 H (74-99) mg/dL POC Glucose (mg/dL) 109 H (75-99) mg/dL 03/27/17 03/27/17 03/27/17 Range/Units 06:05 12:07 17:07 RBC (4.30-5.90) m/uL Hgb (13.0-17.5) gm/dL Hct (39.0-53.0) % Plt Count (150-450) k/uL Sodium (137-145) mmol/L Chloride (98-107) mmol/L Carbon Dioxide (22-30) mmol/L BUN (9-20) mg/dL Glucose (74-99) mg/dL POC Glucose (mg/dL) 106 H 164 H 188 H (75-99) mg/dL Laboratory Results WBC 4.0 k/uL (3.8-10.6) 03/27/17 04:27 RBC 2.66 m/uL (4.30-5.90) L 03/27/17 04:27 Hgb 8.8 gm/dL (13.0-17.5) L 03/27/17 04:27 Hct 26.0 % (39.0-53.0) L 03/27/17 04:27 MCV 97.6 fL (80.0-100.0) 03/27/17 04:27 MCH 33.2 pg (25.0-35.0) 03/27/17 04:27 MCHC 34.0 g/dL (31.0-37.0) 03/27/17 04:27 RDW 15.0 % (11.5-15.5) 03/27/17 04:27 Plt Count 27 k/uL (150-450) L* 03/27/17 04:27 Neutrophils % 75 % 03/26/17 04:10 Lymphocytes % 16 % 03/26/17 04:10 Monocytes % 5 % 03/26/17 04:10 Eosinophils % 0 % 03/26/17 04:10 Basophils % 0 % 03/26/17 04:10 Neutrophils # 1.7 k/uL (1.3-7.7) 03/26/17 04:10 Lymphocytes # 0.3 k/uL (1.0-4.8) L 03/26/17 04:10 Monocytes # 0.1 k/uL (0-1.0) 03/26/17 04:10 Eosinophils # 0.0 k/uL (0-0.7) 03/26/17 04:10 Basophils # 0.0 k/uL (0-0.2) 03/26/17 04:10 Differential Comment 03/25/17 05:22 Manual Slide Review Performed 03/24/17 05:24 Hypochromasia Slight 03/21/17 07:03 Poikilocytosis (manual Present 03/23/17 05:37 Anisocytosis (manual) Present 03/23/17 05:37 Macrocytosis Slight 03/24/17 05:24 Tear Drop Cells Present 03/21/17 07:03 Ovalocytes Present 03/21/17 07:03 PT 13.2 sec (9.0-12.0) H 03/20/17 04:26 INR 1.3 (<1.1) 03/20/17 04:26 APTT 24.3 sec (22.0-30.0) 03/20/17 04:26 Sample Site LRAD 03/26/17 16:56 ABG pH 7.48 (7.35-7.45) H 03/26/17 16:56 ABG pCO2 24 mmHg (35-45) L 03/26/17 16:56 ABG pO2 80 mmHg (83-108) L 03/26/17 16:56 ABG HCO3 18 mmol/L (21-25) L 03/26/17 16:56 ABG Total CO2 19 mmol/L (19-24) 03/26/17 16:56 ABG O2 Saturation 97.0 % (94-97) 03/26/17 16:56 ABG Base Excess -4.9 mmol/L 03/26/17 16:56 FiO2 30 % 03/26/17 16:56 Sodium 148 mmol/L (137-145) H 03/27/17 04:27 Potassium 4.3 mmol/L (3.5-5.1) 03/27/17 04:27 Chloride 120 mmol/L (98-107) H* 03/27/17 04:27 Carbon Dioxide 21 mmol/L (22-30) L 03/27/17 04:27 Anion Gap 7 mmol/L 03/27/17 04:27 BUN 24 mg/dL (9-20) H 03/27/17 04:27 Creatinine 0.75 mg/dL (0.66-1.25) 03/27/17 04:27 Est GFR (MDRD) Af Amer >60 (>60 ml/min/1.73 sqM) 03/27/17 04:27 Est GFR (MDRD) Non-Af >60 (>60 ml/min/1.73 sqM) 03/27/17 04:27 Glucose 105 mg/dL (74-99) H 03/27/17 04:27 POC Glucose (mg/dL) 188 mg/dL (75-99) H 03/27/17 17:07 POC Glu Edge Sander ID Kasey Reid 03/27/17 17:[address] Glu mg/dL 134 mg/dL 03/24/17 05:24 Hemoglobin A1c 6.3 % (4.2-6.1) H 03/24/17 05:24 Plasma Lactic Acid Arnaldo 1.3 mmol/L (0.7-2.0) 03/18/17 21:10 Calcium 8.5 mg/dL (8.4-10.2) 03/27/17 04:27 Phosphorus 2.8 mg/dL (2.5-4.5) 03/27/17 04:27 Magnesium 1.9 mg/dL (1.6-2.3) 03/27/17 04:27 Total Bilirubin 1.0 mg/dL (0.2-1.3) 03/19/17 03:12 AST 40 U/L (17-59) 03/19/17 03:12 ALT 50 U/L (21-72) 03/19/17 03:12 Alkaline Phosphatase 147 U/L (38-126) H 03/19/17 03:12 Troponin I 0.013 ng/mL (0.000-0.034) 03/19/17 03:12 Total Protein 5.9 g/dL (6.3-8.2) L 03/19/17 03:12 Albumin 3.0 g/dL (3.5-5.0) L 03/19/17 03:12 Urine Color Yellow 03/18/17 21:50 Urine Appearance Clear (Clear) 03/18/17 21:50 Urine pH 6.0 (5.0-8.0) 03/18/17 21:50 Ur Specific [place] 1.029 (1.001-1.035) 03/18/17 21:50 Urine Protein Trace (Negative) H 03/18/17 21:50 Urine Glucose (UA) Negative (Negative) 03/18/17 21:50 Urine Ketones Negative (Negative) 03/18/17 21:50 Urine Blood Negative (Negative) 03/18/17 21:50 Urine Nitrite Negative (Negative) 03/18/17 21:50 Urine Bilirubin Negative (Negative) 03/18/17 21:50 Urine Urobilinogen <2.0 mg/dL (<2.0) 03/18/17 21:50 Ur Leukocyte Esterase Negative (Negative) 03/18/17 21:50 Vancomycin Trough 25.1 ug/mL 03/25/17 22:38 Blood Type O Negative 03/25/17 09:56 Blood Type Recheck No 03/25/17 09:56 Antibody Screen NEGATIVE 03/25/17 09:56 Crossmatch See Detail 03/25/17 09:56 Transfuse Platelets 03/24/17 03/24/17 08:53 Spec Expiration Date 03/28/2017 - 42503/25/17 09:56 Microbiology 03/18/17 21:10 Blood Blood Culture - Final No Growth after 144 hours 03/22/17 12:17 Sputum Gram Stain - Final 03/22/17 12:17 Sputum Sputum Culture - Final 03/21/17 11:35 Groin Gram Stain - Final 03/21/17 11:35 Groin Wound Culture - Final Methicillin resist S. aureus 03/20/17 12:22 Abdomen Gram Stain - Final 03/20/17 12:22 Abdomen Wound Culture - Final Methicillin resist S. aureus Enterococcus faecalis 03/18/17 21:50 Urine,Voided Urine Culture - Final Assessment and Plan (1) Febrile neutropenia Narrative/Plan: 76-year-old male presents the emergency center with evidence of feeling quite poorly. Having increasing difficulties with swallowing due to significant pain. Has evidence of some radiation esophagitis as well as mucositis at this time. Has had some response to Dilaudid and cool solution. These will continue. Oncology is following. Radiation oncology also following. Emollient can be applied to the irritation to the skin For the febrile neutropenia antibiotic therapy with cefepime and vancomycin is being utilized because of the extensive mucositis vancomycin is indicated. Cultures are in process Supportive care Fluid resuscitation is occurring Patient has multiple small skin lesions likely related to the current chemotherapy. They are not necrotic and do not appear to be ecthyma gangrenosum at this time, more blisterlike. Given her irritation symptoms and can be applied to these areas and when improved the hydrocolloid can be utilized. Cultures are processing being monitored. Given the mucositis the patient is at risk of underlying fungal infection and with this micafungin is utilized. Albumin is low nutritional supplementation and process Patient now extubated. Seems to doing well on the short postaxillary timeframe. Also noted that the white blood cell count has gone up to 2.2. Likely seems to be improving his febrile neutropenia. In recovery of his neutropenia is occurring. He has evidence of the wounds and as he improves of the next day or so if no other troubles occur the micafungin will be discontinued. He'll remain on vancomycin therapy for approximately the next week. And as his neutropenia completely resolves within be able to transition off of cefepime. His white count is over 4 again tomorrow we'll discontinue cefepime at that time Continue local wound care as before. Improved erythema and induration to all the lesions now that his white count has recovered. Status: Acute (2) Small cell lung cancer Status: Chronic (3) Atrial flutter with rapid ventricular response Status: Acute (4) Anemia Status: Acute
--- NOTE | 2017-03-28 00:02 | P.PN ---
Subjective The pt is florin extubated. He is awake and responsive, but confused. No obvious bleeding Objective - Vital Signs Vital signs: Vital Signs Temp 97.8 F 03/27/17 20:00 Pulse 102 H 03/27/17 22:00 Resp 23 03/27/17 22:00 BP 136/74 03/27/17 22:00 Pulse Ox 99 03/27/17 22:00 Intake & Output 03/27/17 03/27/17 03/28/17 06:59 18:59 06:59 Intake Total 1018.25 1615.667 325 Output Total 1310 2305 445 Balance -291.75 -689.333 -120 Weight 93.4 kg 93.4 kg Intake: IV 75 Dextrose 5% in Water 1, 75 000 ml @ 75 mls/hr IV . [id number] [facility] Rx#:[id number] Intake, IV Titration 1018.25 1155.667 250 Amount Cefepime 2 gm In Sodium 50 50 Chloride 0.9% 50 ml @ 100 mls/hr IVPB Q8H [facility] Rx#: [id number] Dextrose 5% in Water 1, 675 250 000 ml @ 75 mls/hr IV . [id number] [facility] Rx#:[id number] Diltiazem 125 mg In 68.25 80.667 Sodium Chloride 0.9% 100 ml @ 10 MG/HR 10 mls/hr IV .[id number] [facility] Rx#: [id number] Magnesium Sulfate-D5w Pmx 100 1 gm In Dextrose/Water 1 100ml.bag @ 100 mls/hr IVPB Q1H [facility] Rx#: [id number] Micafungin 100 mg In 100 Sodium Chloride 0.9% 100 ml @ 100 mls/hr IVPB DAILY@1800 [facility] Rx#: [id number] Sodium Chloride 0.9% 1, 900 150 000 ml @ 75 mls/hr IV . [id number] [facility] Rx#:[id number] Oral 460 Output: Urine 1310 2305 445 Other: Voiding Method Indwelling Catheter Indwelling Catheter Indwelling Catheter # Voids 1 # Bowel Movements 1 1 - Constitutional General appearance: Present: no acute distress - EENT Eyes: Present: PERRLA ENT: Present: hearing grossly normal, normal oropharynx - Respiratory Respiratory: bilateral: diminished - Cardiovascular Rhythm: regular Heart sounds: normal: S1, S2 - Gastrointestinal General gastrointestinal: Present: normal bowel sounds, soft - Integumentary Integumentary: Present: ulcer (lower abdomen and LE ulcers healing) - Neurologic Neurologic: Present: CNII-XII intact - Musculoskeletal Musculoskeletal: Present: generalized weakness, strength equal bilaterally - Psychiatric Psychiatric Comment(s): confused - Labs CBC & Chem 7: 03/27/17 04:27 03/27/17 04:27 Labs: Abnormal Lab Results - Last 24 Hours (Table) 03/27/17 03/27/17 03/27/17 Range/Units 00:23 04:27 04:27 RBC 2.66 L (4.30-5.90) m/uL Hgb 8.8 L (13.0-17.5) gm/dL Hct 26.0 L (39.0-53.0) % Plt Count 27 L* (150-450) k/uL Sodium 148 H (137-145) mmol/L Chloride 120 H* (98-107) mmol/L Carbon Dioxide 21 L (22-30) mmol/L BUN 24 H (9-20) mg/dL Glucose 105 H (74-99) mg/dL POC Glucose (mg/dL) 109 H (75-99) mg/dL 03/27/17 03/27/17 03/27/17 Range/Units 06:05 12:07 17:07 RBC (4.30-5.90) m/uL Hgb (13.0-17.5) gm/dL Hct (39.0-53.0) % Plt Count (150-450) k/uL Sodium (137-145) mmol/L Chloride (98-107) mmol/L Carbon Dioxide (22-30) mmol/L BUN (9-20) mg/dL Glucose (74-99) mg/dL POC Glucose (mg/dL) 106 H 164 H 188 H (75-99) mg/dL Assessment and Plan (1) Mental status change Narrative/Plan: The pt is now extubated. The severe agitation and restlessness has resolved. He is still confused, though able to follow commands Status: Acute (2) Severe sepsis with septic shock Narrative/Plan: This is resolving, with stable hemodynamics. Antibiotics per Dr Gomez Status: Acute (3) Pancytopenia due to antineoplastic chemotherapy Narrative/Plan: WBC has recovered. Filgrastim will be stopped in the next 1-2 days. Hgb and plt are more stable. With no evidence of bleeding and no procedure planned current plt count is adequate Status: Acute Plan: The pt is currently in a flutter with rate controlled. Currently plt count is too low to start anticoagulation. This can be started once plt are > 50. We will need to monitor plt counts carefully as they are likely to drop again once chemo resumes, even though dose reduction is planned. We will thus need to hold anticoagulation intermittently going forward
[2017-03-28 04:53] LABS: CH 32.7; CHCM 34.2; HCT 24.4 % (39.0-53.0); HDW 3.04; HGB 8.4 gm/dL (13.0-17.5); Immature Gran Flag Moderate; MCHC 34.4 g/dL (31.0-37.0); MCV 96.2 fL (80.0-100.0); Mean Platelet Volume 9.3; RBC 2.53 m/uL (4.30-5.90); RDW 14.9 % (11.5-15.5); WBC 3.8 k/uL (3.8-10.6); WBC (Perox) 4.02
[2017-03-28 05:00] LABS: INR 1.3 (<1.1); Prothrombin Time 12.6 sec (9.0-12.0)
[2017-03-28 05:02] LABS: Anion Gap 9 mmol/L; Blood Urea Nitrogen 24 mg/dL (9-20); Calcium 8.6 mg/dL (8.4-10.2); Carbon Dioxide 22 mmol/L (22-30); Chloride 115 mmol/L (98-107); Glucose 127 mg/dL (74-99); Non-African American GFR(MDRD) >60 (>60 ml/min/1.73 sqM); Potassium 3.9 mmol/L (3.5-5.1); Sodium 146 mmol/L (137-145)
[2017-03-28 05:15] LABS: Add Differential Manual Differential
[2017-03-28 05:20] LABS: Band Neutrophils % 5.5 %; Manual Review Performed; Metamyelocytes % 0.5 %; Nucleated Red Blood Cells 0 /100 WBC (0-0); Total Cells Counted 200
[2017-03-28 06:02] LABS: Glucose,Whole Blood 136 mg/dL (75-99)
[2017-03-28] MEDS: INSULIN LISPRO (humaLOG) 300 UNIT/3 ML VIAL SQ SCH ×3 (06:46→18:50)
[2017-03-28] MEDS: VANCOMYCIN 1,500 MG in SODIUM CHLORIDE 0.9% 250 ML IVPB SCH (06:46)
[2017-03-28 07:54] LABS: Glucose,Whole Blood 124 mg/dL (75-99)
--- NOTE | 2017-03-28 07:58 | XR ---
EXAMINATION TYPE: XR chest 1V portable DATE OF EXAM: 03/28/2017 6:27 AM COMPARISON: 03/27/2017 HISTORY: Tube placement TECHNIQUE: Single frontal view of the chest is obtained. FINDINGS: Cardiac device, postoperative change, and cardiomegaly stable. Underlying COPD suspected. Arthropathy of the shoulders. No overt failure or pneumothorax. No pleural effusion. IMPRESSION: No acute process.
[2017-03-28] MEDS: PANTOPRAZOLE 40 MG/10 ML VIAL IV SCH ×2 (08:14→17:27)
[2017-03-28] MEDS: CEFEPIME 2 GM in SODIUM CHLORIDE 0.9% 50 ML IVPB SCH ×4 (08:14→23:23)
[2017-03-28] MEDS: OXYBUTYNIN CHLORIDE 5 MG TAB PO SCH ×4 (08:14→20:55)
[2017-03-28] MEDS: FERROUS SULFATE 325 MG TAB PO SCH (08:14)
[2017-03-28] MEDS: VITAMIN E (DL,TOCOPHERYL ACET) 400 UNIT CAP PO SCH (08:14)
[2017-03-28 08:15] LABS: Glucose,Whole Blood 126 mg/dL (75-99)
[2017-03-28] MEDS: METOPROLOL TARTRATE 25 MG TAB PO SCH ×3 (08:15→20:55)
[2017-03-28] MEDS: MULTIVITAMINS, THERA 1 EACH TAB PO SCH (08:15)
[2017-03-28] MEDS: PYRIDOXINE 50 MG TAB PO SCH (08:15)
[2017-03-28] MEDS: SPIRONOLACTONE 25 MG TAB PO SCH (08:15)
[2017-03-28] MEDS: MAG HYDROX/AL HYDROX/SIMETH 30 ML, LIDOCAINE VISCOUS 30 ML, diphenhydrAMINE ELIXIR 75 M... PO SCH ×12 (08:16→23:23)
[2017-03-28] MEDS: HYDROCORTISONE 1% CREAM 454 GM JAR TOPICAL SCH ×2 (08:16→21:10)
[2017-03-28] MEDS: ZINC OXIDE 20% OINT 28.4 GM TUBE TOPICAL SCH ×3 (08:16→20:53)
[2017-03-28] MEDS: DOCUSATE ORAL SOLN 100 MG/10 ML CUP PO SCH ×3 (08:41→20:54)
[2017-03-28] MEDS: CHOLECALCIFEROL 1,000 UNIT TAB PO SCH (08:41)
[2017-03-28] MEDS: ATORVASTATIN 80 MG TAB PO SCH (08:41)
[2017-03-28] MEDS: GABAPENTIN 300 MG CAP PO SCH ×4 (08:42→20:54)
[2017-03-28] MEDS: IPRATROPIUM-ALBUTEROL 3 ML NEB INHALATION SCH ×4 (09:15→20:19)
[2017-03-28] MEDS: SYMBICORT 160-4.5 MCG INHALER INHALATION SCH (09:15)
--- NOTE | 2017-03-28 10:13 | P.PN ---
Subjective Patient is a 76-year-old male, patient of Dr. Mulligan in the outpatient setting, with medical history significant for paroxysmal atrial fibrillation, GERD, hyperlipidemia, hypertension, coronary artery disease status post coronary artery bypass grafting in 2014 followed by stenting to the left SFA in August 2015, myocardial infarction, ischemic cardiomyopathy status post placement of internal cardiac defibrillator, prostate cancer status post prostatectomy in 1998, peripheral vascular disease status post stent placement to left lower extremity, osteoarthritis, severe peripheral neuropathy, and remote nicotine dependence. 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 Per chart and daughter, patient had been experiencing trouble with swallowing and increased shortness of breath over the last couple of days prior to admission in addition to having generalized weakness, fatigue, and shakiness. Patient originally presented to [facility] where he underwent a CTA of the chest with evidence of cardiomegaly, right upper lung nodule and right hilar invasive mass with thoracic adenopathy; and moderate to severe thickening of the mid esophagus. Patient was transferred to [facility]. In the emergency department, patient was found to have evidence of febrile neutropenia and pancytopenia with evidence of acute renal failure. Patient was admitted to the intensive care unit and consults were requested for Dr. Figueroa for oncology service , Dr. Courtney for pulmonary service, cardiology service, and Dr. Gomez for infectious disease service. While in the intensive care unit, patient's respiratory status declined requiring ventilatory support. Patient did have positive wound cultures for MRSA for blister type wounds. Patient is evaluated in the intensive care unit. Patient was extubated on 03/26 in the afternoon and is doing well respiratory seals currently on 4 L nasal cannula saturating 98%. Patient is more alert and awake than yesterday. Denies chills, fevers, nausea, vomiting, increased shortness of breath, chest pain, or abdominal pain. Patient remains in atrial flutter with controlled ventricular rate, patient continues on IV Cardizem at 10 mL an hour. Patient is tolerating a full liquid diet. Patient is passing flatus with bowel movements. Patient is currently working with physical therapy at bedside with plans to get up in a chair. Chest x-ray from today with with evidence of underlying COPD, no overt failure or pneumothorax, no pleural effusion. WBC stable at 3.8. Hemoglobin stable at 8.4. Platelets decreased to 19. Sodium 146. IV fluids continues with D5W at 75 mL an hour. Patient remains on antibiotics in the form of Maxipime, micafungin, and vancomycin. Objective - Vital Signs Vital signs: Vital Signs Temp 98.0 F 03/28/17 08:00 Pulse 89 03/28/17 09:27 Resp 21 03/28/17 09:00 BP 151/77 03/28/17 09:00 Pulse Ox 98 03/28/17 09:00 Intake & Output 03/27/17 03/28/17 03/28/17 18:59 06:59 18:59 Intake Total 8576.323 7635 225 Output Total 2305 1870 600 Balance -689.333 -820 -375 Weight 93.4 kg 94.3 kg Intake: IV 675 225 Dextrose 5% in Water 1, 675 225 000 ml @ 75 mls/hr IV . [id number] [facility] Rx#:[id number] Intake, IV Titration 1155.667 375 Amount Cefepime 2 gm In Sodium 50 Chloride 0.9% 50 ml @ 100 mls/hr IVPB Q8H [facility] Rx#: [id number] Dextrose 5% in Water 1, 675 250 000 ml @ 75 mls/hr IV . [id number] [facility] Rx#:[id number] Diltiazem 125 mg In 80.667 125 Sodium Chloride 0.9% 100 ml @ 10 MG/HR 10 mls/hr IV .[id number] [facility] Rx#: [id number] Magnesium Sulfate-D5w Pmx 100 1 gm In Dextrose/Water 1 100ml.bag @ 100 mls/hr IVPB Q1H [facility] Rx#: [id number] Micafungin 100 mg In 100 Sodium Chloride 0.9% 100 ml @ 100 mls/hr IVPB DAILY@1800 [facility] Rx#: [id number] Sodium Chloride 0.9% 1, 150 000 ml @ 75 mls/hr IV . [id number] [facility] Rx#:[id number] Oral 460 Output: Urine 2305 1870 600 Other: Voiding Method Indwelling Catheter Indwelling Catheter Indwelling Catheter # Voids 1 # Bowel Movements 1 - Exam GENERAL: Pt is awake and alert with mentation improved from yesterday, appears in no acute distress. HEAD: Atraumatic, normocephalic. EYES: Pupils equal, round, and reactive to light, sclera anicteric, conjunctiva are normal. ENT: Moist mucous membranes. NECK: Supple without lymphadenopathy or JVD. Trachea midline. LUNGS: Breath sounds diminished with scattered rhonchi to anterior lung kohler. HEART: Heart S1, S2, no S3 or S4. Regular irregular. No murmurs, rubs or gallops. ABDOMEN: Soft, nondistended, normoactive bowel sounds. No guarding, no rebound. No masses or organomegaly appreciated. EXTREMITIES: 1+ peripheral pulses. Trace edema to upper and lower extremities. NEUROLOGICAL: Pt alert and awake, speech slow but coherent. Patient able to carry on forward conversation. SKIN: Warm, dry. - Labs CBC & Chem 7: 03/28/17 04:33 03/28/17 04:33 Labs: Abnormal Lab Results - Last 24 Hours (Table) 03/27/17 03/27/17 03/28/17 Range/Units 12:07 17:07 04:33 RBC 2.53 L (4.30-5.90) m/uL Hgb 8.4 L (13.0-17.5) gm/dL Hct 24.4 L (39.0-53.0) % Plt Count 19 L* (150-450) k/uL Lymphocytes # (Manual) 0.5 L (1.0-4.8) k/uL PT (9.0-12.0) sec Sodium (137-145) mmol/L Chloride (98-107) mmol/L BUN (9-20) mg/dL Glucose (74-99) mg/dL POC Glucose (mg/dL) 164 H 188 H (75-99) mg/dL 03/28/17 03/28/17 03/28/17 Range/Units 04:33 04:33 06:00 RBC (4.30-5.90) m/uL Hgb (13.0-17.5) gm/dL Hct (39.0-53.0) % Plt Count (150-450) k/uL Lymphocytes # (Manual) (1.0-4.8) k/uL PT 12.6 H (9.0-12.0) sec Sodium 146 H (137-145) mmol/L Chloride 115 H (98-107) mmol/L BUN 24 H (9-20) mg/dL Glucose 127 H (74-99) mg/dL POC Glucose (mg/dL) 136 H (75-99) mg/dL 03/28/17 03/28/17 Range/Units 07:52 08:13 RBC (4.30-5.90) m/uL Hgb (13.0-17.5) gm/dL Hct (39.0-53.0) % Plt Count (150-450) k/uL Lymphocytes # (Manual) (1.0-4.8) k/uL PT (9.0-12.0) sec Sodium (137-145) mmol/L Chloride (98-107) mmol/L BUN (9-20) mg/dL Glucose (74-99) mg/dL POC Glucose (mg/dL) 124 H 126 H (75-99) mg/dL Assessment and Plan Plan: Impression: 1. Neutropenic sepsis suspect secondary to recent chemotherapy and radiation for limited stage small cell lung carcinoma post chemoradiation therapy. Wound cultures positive for MRSA. 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 2. Pancytopenia suspect secondary to anti-neoplastic chemotherapy. Patient currently on Zarxio, which will be stopped in next 25-48 hrs per oncology. 3. Atrial flutter, ventricular response control. Per oncology, patient may resume anticoagulation once platelet count is greater than 50. 4. Acute renal failure, present on admission, suspect secondary to hypovolemia and hypoperfusion, secondary to dehydration, resolved. 5. Elevated blood sugars on admission. 6. Elevated alkaline phosphatase, present on admission. 7. Dysphagia, present on admission, suspect secondary to esophagitis and mucositis secondary to recent chemotherapy and radiation with possibility of Traci esophagitis. 8. Chronic renal failure, stage III. 9. Paroxysmal atrial fibrillation maintained on Eliquis in the outpatient setting. 10. Hyperlipidemia. 11. Hypertension. 12. Chronic systolic heart failure, ischemic cardiomyopathy status post AICD placement. Ejection fraction 35%. 13. Coronary artery disease status post coronary artery bypass grafting followed by stenting. 14. History of prostate cancer status post prostatectomy. 15. History of GERD. 16. Severe peripheral vascular disease status post stenting to right lower extremity. 17. Severe peripheral neuropathy. 18. Osteoarthritis. 19. History of anxiety and depression, stable. 20. History of nicotine dependence. 21. Acute respiratory failure secondary to above mentioned comorbidities, currently extubated. 22. Anemia, chemo induced. 23. Hypernatremia. Plan: Continue to monitor patient. Continue IV antibiotics per infectious disease recommendations. Continue current medications. Continue pulmonary toileting. Continue supplemental oxygen to keep oxygen saturation greater than 92%. Continue supportive treatment. Continue physical therapy. Continue to follow with consultants. Continue GI and DVT prophylaxis. Repeat CBC, BMP in a.m. From a medical standpoint, patient is stable to transfer to selective care unit. Critical care time spent with patient less than 30 minutes. The above impression and plan have been discussed and directed by Dr. Mulligan. Carmel LACEY acting as scribe for Isaak.
[2017-03-28] MEDS: DILTIAZEM 125 MG in SODIUM CHLORIDE 0.9% 100 ML IV SCH (10:19)
--- NOTE | 2017-03-28 11:43 | P.PN ---
Subjective Principal diagnosis: Acute neutropenic sepsis and respiratory failure 76-year-old male patient who is quite ill and he comes into the hospital because of various medical problems and chronic shortness of breath and difficulty in swallowing and chest congestion and generalized weakness and fatigue. The patient also had limited changes in his mentation. Note that the patient has history of coronary artery disease and he has undergone previous carotid bypass surgery 2014. 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 He has also peripheral vascular disease and has undergone stenting of the left lower extremity. He was recently diagnosed having small cell lung cancer. Diagnosed was established by bronchoscopy as the patient was found to have endobronchial tumor and based on the limited staging of the small cell lung cancer the patient was referred to radiation oncology and hematology oncology. A patient was started on radiation therapy and he was given a total of 10 sessions of radiation therapy and he has another 10 sessions to go. He was also given the first session of systemic chemotherapy with a combination of carboplatinum and [employer]-16. Note that the patient was doing well to around a few days ago and he started developing worsening in his mucositis and swallowing. His chest started becoming more congested. He was unable to swallow. He became progressively more weak and dehydrated. The family and himself denied any episodes of aspiration. He denied having any nausea vomiting or diarrhea. He reported burning sensation in his upper chest. At the same time he has noted some purulent nodules arising in his groin and suprapubic area. These are small nodular lesions that are measuring 1-2 cm in size which have some central purulent material draining. No dysuria. No frequency. No urgency. He still producing urine output. In the burst department the patient was found to be also in atrial fibrillation with rapid ventricular response and he was started on IV heparin and IV Cardizem. Rate is still tachycardic in the 120 range. At the same time the patient was found to be neutropenic and pancytopenic. His white cell count was at 0.2. He is single was 8.4. His platelet count at 48, 000. His creatinine was at 1.2. The patient was started on IV fluids. He was given IV fluid boluses and currently is on any normal saline infusion rate of 1 25 mL an hour. The patient is also on a combination of cefepime and vancomycin. No fever at this point. No headache. No neck stiffness. On 03/20/2017 I'm seeing this patient in follow-up in the intensive care unit. He is doing slightly better. Still unable to swallow and still having burning sensation in his throat and upper chest related to severe mucositis. He is afebrile. He is hemodynamically stable. He is on broad-spectrum antibiotics. All of the cultures of been negative. Still pancytopenic and the white cell count today is at 0.3 with a hemoglobin of 8.7 and platelet count of 23,000. He is still in atrial fibrillation with rate being controlled. He is on no anti -coagulation based on his underlying thrombocytopenia. He has a component of non-anion gap metabolic acidosis. His bicarb level is at 17. CAT scan of the brain was done today and the patient had shown mild diffuse cerebral atrophy with mild to moderate chronic small vessel ischemic changes. No other enhancing lesions. Family is at the bedside. The patient is lethargic and still profoundly weak. On 03/21/2017 I'm seeing this patient in follow-up in the intensive care units. Very much delirious and overnight very much agitated for which she was given Haldol and Ativan. Bit more comfortable and calm her today this morning. Family is at the bedside. Remains profoundly pancytopenic without any major recovery in his hematologic profile. Afebrile and hemodynamically stable covered with broad-spectrum antibiotics. All of the cultures have not indicated any specific microbial growth for now. ID is on the case. The pustules and the groin and suprapubic area remains unchanged. There are several of them at least 6 and only a few had some purulent center which seems to be much more dried up on today's evaluation. No bleeding. Platelet counts have dropped down to 13,000. Vancomycin trough is at 17.8. On 03/22/2017 I'm seeing this patient in follow-up. The patient is quite lethargic. He was agitated throughout the night. He had required several doses of Haldol and Ativan. He is per much sedated at this point and seems to be more comfortable. I was told that overnight he was very agitated and difficult to control. He is on 2 point restraints at this point. Hematologically, the patient is still pancytopenic and he still being treated for neutropenic fevers. He has a white cell count of 0.4 with a hemoglobin of 7.7 and platelet count of 17,000. He is afebrile. 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 Blood cultures of been negative. Urine culture been negative. The patient is on no pressors. The patient is still on a combination of cefepime and vancomycin and micafungin regarding his neutropenic sepsis. ID is on the case. On 03/23/2017, the patient remains intubated on the mechanical ventilator. The patient sedated with Diprivan. The patient currently is an assist-control mode of ventilation, etc. rate of 20, tidal volume of 500, FiO2 of 40% and a PEEP of 5. The blood gases from this morning showed a pH of 7.37 with a pCO2 of 25 and pO2 of 144. The patient's chest x-ray shows a small right-sided pleural effusion. ET tube is in a good location. The patient is well sedated. The patient is receiving enteral feeding for nutritional support. The patient is on no pressors at this point and he is hemodynamically stable. The patient has been found to have MRSA in the suprapubic pustules and the patient is currently on a combination of vancomycin, Zosyn and micafungin. He remains pancytopenic and there is no improvement in his hematologic profile. White cell count remains at 0.5 with a hemoglobin of 8.6 and a platelet count of 12,000. CAT scan of the bilateral lower extremity was done yesterday and the patient has some enlarged left exterior iliac chain lymph nodes as well as bilateral prominent but nonenlarged inguinal femoral lymph node chains. There is some focal inflammatory changes along the anterior right groin area likely representing an area of cellulitis. No abscesses could be found. No evidence of any necrotizing fasciitis at this point. The patient is tolerating his tube feeds. He is calm and comfortable at this point. No other significant events overnight. On 03/24/2017, patient remains intubated, on mechanical ventilation. His ventilator settings were reviewed, FiO2 is 30%, assist control rate of 20 tidal volume of 500 and PEEP of 5. ABG showed a pO2 of 156 pCO2 of 25 pH of 7.40. Other labs were reviewed, WBC count remains low at 0.4, hemoglobin is 8.3, platelets are 11,000. Basic metabolic profile showed sodium of 145 chloride is 121 patient has a hyperchloremic metabolic acidosis non-anion gap. Chest x-ray showed mild cardiomegaly and left basilar air space disease with small bilateral pleural effusions. Antibiotics remain to include cefepime, micafungin , and vancomycin. Patient remains sedated on propofol drip, hemodynamically seems to be relatively stable. Wound culture has been positive for methicillin staph aureus and Enterococcus faecalis. Both are sensitive to vancomycin. Patient was reevaluated today on 03/25/2017, remains intubated, on mechanical ventilation, his weaning parameters were noted to be poor today, and his respirator rate on CPAP was in the high 50s. Hence no further attempts of weaning was made. ABG showed a pO2 of 94 pCO2 of 26 pH of 7.44. His vent settings are tidal volume of 500 FiO2 of 30% assist control rate of 16 and PEEP is 5. Chest x-ray showed stable by basilar atelectasis or infiltrates. And mild central venous congestion. All labs were reviewed, WBC count is 0.8 today , hemoglobin is 7.8 sodium is 147 chloride is 120 bicarb is 18, renal profile is normal. Patient was earlier on propofol drip, however he was noted to be appropriate when the propofol was discontinued, and a short the CPAP trial was given. Reevaluated today on 03/26/2017, patient remains on mechanical ventilation, intubated, patient is presently on propofol which I plan to discontinue and at least give the patient weaning parameters and possibly a weaning trial. However patient is in atrial flutter, rate is 140, and I plan to reconsult cardiology regarding his atrial flutter, in the meantime I will start the patient on Cardizem with 10 mg bolus and 10 mg drip per hour. Ventilator settings were reviewed, he is presently on assist control rate of 16 tidal volume of 500 FiO2 of 30%, and PEEP is 5. ABG showed a pO2 of 113 pCO2 of 26 pH of 7.45. CBC is showing improvement, WBC count is 2.2 hemoglobin is 8.8 platelets remained low at 57,000. Sodium is 148, hence I will recommend free water flushes. Renal profile is normal. Blood cultures have been negative with cultures have been positive for MRSA and Enterococcus faecalis. Antibiotics remain the same. On 03/27/2017, patient is now off mechanical ventilation, he was extubated yesterday uneventfully. I was actually in the ICU when the patient was extubated last night. He did quite well, tolerated the extubation and continues to tolerate the extubation well. Patient is very appropriate, in no form of respiratory distress. Labs were reviewed, WBC count is up to 4.0 hemoglobin is 8.8 and his platelets are 27,000. His electrolytes continued to show hypernatremia and hyperchloremia, hence I will switch his main IV fluid to D5W at 75 mL per hour. Chest x-ray showed mild cardiomegaly and mild vascular congestion, no evidence of raheem edema. On 03/28/2017, patient seems to be doing quite well, he is hemodynamically stable , in no distress, remains in atrial flutter but the rate seems to be better controlled. Patient is still on Cardizem drip, and I plan to transfer the patient today to selective/monitor bed. Patient denies any cough no wheezing no shortness of breath. He seems to be much improved over the last 2 days. Labs revealed WBC count of 3.8 hemoglobin is 8.4 platelets 19,000. Electrolytes and renal profile are normal. Chest x-ray is relatively unremarkable. Objective - Vital Signs Vital signs: Vital Signs Temp 98.0 F 03/28/17 08:00 Pulse 85 03/28/17 11:00 Resp 20 03/28/17 11:00 BP 116/61 03/28/17 11:00 Pulse Ox 100 03/28/17 11:00 Intake & Output 03/27/17 03/28/17 03/28/17 18:59 06:59 18:59 Intake Total 9706.574 6872 479.667 Output Total 2305 1870 1000 Balance -689.333 -820 -520.333 Weight 93.4 kg 94.3 kg Intake: IV 675 375 Dextrose 5% in Water 1, 675 375 000 ml @ 75 mls/hr IV . [id number] [facility] Rx#:[id number] Intake, IV Titration 1155.667 375 104.667 Amount Cefepime 2 gm In Sodium 50 Chloride 0.9% 50 ml @ 100 mls/hr IVPB Q8H [facility] Rx#: [id number] Dextrose 5% in Water 1, 675 250 000 ml @ 75 mls/hr IV . [id number] [facility] Rx#:[id number] Diltiazem 125 mg In 80.667 125 104.667 Sodium Chloride 0.9% 100 ml @ 10 MG/HR 10 mls/hr IV .[id number] [facility] Rx#: [id number] Magnesium Sulfate-D5w Pmx 100 1 gm In Dextrose/Water 1 100ml.bag @ 100 mls/hr IVPB Q1H [facility] Rx#: [id number] Micafungin 100 mg In 100 Sodium Chloride 0.9% 100 ml @ 100 mls/hr IVPB DAILY@1800 [facility] Rx#: [id number] Sodium Chloride 0.9% 1, 150 000 ml @ 75 mls/hr IV . [id number] [facility] Rx#:[id number] Oral 460 Output: Urine 2305 1870 1000 Other: Voiding Method Indwelling Catheter Indwelling Catheter Indwelling Catheter # Voids 1 # Bowel Movements 1 - Exam Physical Exam: Revealed a 76-year-old white male in no distress. HEENT:[Neck is supple.] [No neck masses.] [No thyromegaly.] [No JVD.] Chest: [Diminished breath sounds at the bases, no crackles, no rhonchi, no wheezes.] Cardiac Exam: [Normal S1 and S2, no S3 gallop, no murmur. Patient remains in atrial flutter, but rate seems to be better controlled.] Abdomen: [Soft, nontender, no megaly, no rebound, no guarding, normal bowel sounds.] Extremities: [No clubbing, 1+ bipedal edema, no cyanosis.] Neurological Exam: [No focal neurologic deficit.] - Labs CBC & Chem 7: 03/28/17 04:33 03/28/17 04:33 Labs: Abnormal Lab Results - Last 24 Hours (Table) 03/27/17 03/27/17 03/28/17 Range/Units 12:07 17:07 04:33 RBC 2.53 L (4.30-5.90) m/uL Hgb 8.4 L (13.0-17.5) gm/dL Hct 24.4 L (39.0-53.0) % Plt Count 19 L* (150-450) k/uL Lymphocytes # (Manual) 0.5 L (1.0-4.8) k/uL PT (9.0-12.0) sec Sodium (137-145) mmol/L Chloride (98-107) mmol/L BUN (9-20) mg/dL Glucose (74-99) mg/dL POC Glucose (mg/dL) 164 H 188 H (75-99) mg/dL 03/28/17 03/28/17 03/28/17 Range/Units 04:33 04:33 06:00 RBC (4.30-5.90) m/uL Hgb (13.0-17.5) gm/dL Hct (39.0-53.0) % Plt Count (150-450) k/uL Lymphocytes # (Manual) (1.0-4.8) k/uL PT 12.6 H (9.0-12.0) sec Sodium 146 H (137-145) mmol/L Chloride 115 H (98-107) mmol/L BUN 24 H (9-20) mg/dL Glucose 127 H (74-99) mg/dL POC Glucose (mg/dL) 136 H (75-99) mg/dL 03/28/17 03/28/17 Range/Units 07:52 08:13 RBC (4.30-5.90) m/uL Hgb (13.0-17.5) gm/dL Hct (39.0-53.0) % Plt Count (150-450) k/uL Lymphocytes # (Manual) (1.0-4.8) k/uL PT (9.0-12.0) sec Sodium (137-145) mmol/L Chloride (98-107) mmol/L BUN (9-20) mg/dL Glucose (74-99) mg/dL POC Glucose (mg/dL) 124 H 126 H (75-99) mg/dL Assessment and Plan Plan: 1 neutropenic sepsis. The patient is afebrile however he has very source of infection at these to be considered including the lungs, esophagitis and no other pustular lesions in the suprapubic and inguinal area which could be potentially staphylococcal or fungal. 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 The patient remains on a combination of cefepime, vancomycin and micafungin. 2 limited stage small cell lung cancer status post chemoradiation therapy. The patient has received one session of systemic chemotherapy with carboplatinum and [employer]-16 and 10 sessions of radiation therapy 3 esophagitis/mucositis secondary to radiation therapy with secondary difficulty in swallowing. Rule out candidal esophagitis 4 pancytopenia secondary to chemotherapy. . resolving, and seems to be improving over the last couple of days. 5 Atrial flutter , being managed by cardiology on the case. rate seems to be better controlled today. 6 CHF with an ejection fraction of 35% 7 coronary artery disease with multivessel involvement and the patient is status post carotid bypass surgery 8 history of AICD placement 9 dysphagia, currently nothing by mouth 10 acute kidney injury, improved in the creatinine normalized 11 peripheral vascular disease with previous vascular intervention of the left lower extremity 12 prostate cancer status post prostatectomy 13 severe peripheral neuropathy 14 depression/anxiety 15 coronary artery bypass surgery, history of 16 acute respiratory failure secondary to above-mentioned comorbidities currently intubated on a mechanical ventilator. 17 hyperchloremic hypernatremia and the patient is receiving free water flushes Recommendation: Patient can be transferred out of the ICU today to a monitored bed on selective, and we'll continue to follow. Time with Patient: Less than 30
[2017-03-28 12:30] LABS: Glucose,Whole Blood 112 mg/dL (75-99)
[2017-03-28 12:38] LABS: Glucose,Whole Blood 110 mg/dL (75-99)
[2017-03-28] MEDS: DEXTROSE 5% IN WATER 1,000 ML IV SCH (13:47)
[2017-03-28] MEDS: FILGRASTIM-SNDZ 480 MCG/0.8 ML SYRINGE SQ SCH (14:37)
[2017-03-28 18:06] LABS: Glucose,Whole Blood 128 mg/dL (75-99)
[2017-03-28] MEDS: MICAFUNGIN 100 MG in SODIUM CHLORIDE 0.9% 100 ML IVPB SCH (18:53)
[2017-03-29 00:18] LABS: Glucose,Whole Blood 125 mg/dL (75-99)
[2017-03-29] MEDS: INSULIN LISPRO (humaLOG) 300 UNIT/3 ML VIAL SQ SCH ×5 (00:48→23:42)
[2017-03-29] MEDS: DILTIAZEM 125 MG in SODIUM CHLORIDE 0.9% 100 ML IV SCH ×2 (01:20→17:13)
[2017-03-29] MEDS: DEXTROSE 5% IN WATER 1,000 ML IV SCH ×2 (01:22→13:39)
[2017-03-29] MEDS ORDERED: VANCOMYCIN TROUGH DUE 1 EACH MISC MISCELLANE ONE (05:00)
[2017-03-29 06:13] LABS: Glucose,Whole Blood 112 mg/dL (75-99)
[2017-03-29] MEDS: PANTOPRAZOLE 40 MG/10 ML VIAL IV SCH ×2 (06:50→16:42)
[2017-03-29] MEDS: VANCOMYCIN 1,500 MG in SODIUM CHLORIDE 0.9% 250 ML IVPB SCH (07:00)
[2017-03-29] MEDS: SYMBICORT 160-4.5 MCG INHALER INHALATION SCH (08:35)
[2017-03-29] MEDS: IPRATROPIUM-ALBUTEROL 3 ML NEB INHALATION SCH ×4 (08:35→20:34)
[2017-03-29] MEDS: SPIRONOLACTONE 25 MG TAB PO SCH (09:00)
[2017-03-29] MEDS: ATORVASTATIN 80 MG TAB PO SCH (09:00)
[2017-03-29] MEDS: PYRIDOXINE 50 MG TAB PO SCH (09:00)
[2017-03-29] MEDS: CHOLECALCIFEROL 1,000 UNIT TAB PO SCH (09:00)
[2017-03-29] MEDS: CEFEPIME 2 GM in SODIUM CHLORIDE 0.9% 50 ML IVPB SCH ×3 (09:00→23:11)
[2017-03-29] MEDS: VITAMIN E (DL,TOCOPHERYL ACET) 400 UNIT CAP PO SCH (09:00)
[2017-03-29] MEDS: MULTIVITAMINS, THERA 1 EACH TAB PO SCH (09:01)
[2017-03-29] MEDS: GABAPENTIN 300 MG CAP PO SCH ×4 (09:01→21:07)
[2017-03-29] MEDS: OXYBUTYNIN CHLORIDE 5 MG TAB PO SCH ×4 (09:01→21:07)
[2017-03-29] MEDS: METOPROLOL TARTRATE 25 MG TAB PO SCH ×3 (09:01→21:07)
[2017-03-29] MEDS: DOCUSATE ORAL SOLN 100 MG/10 ML CUP PO SCH ×3 (09:01→21:07)
[2017-03-29] MEDS: FERROUS SULFATE 325 MG TAB PO SCH (09:01)
[2017-03-29] MEDS: ZINC OXIDE 20% OINT 28.4 GM TUBE TOPICAL SCH ×3 (09:02→21:08)
[2017-03-29] MEDS: HYDROCORTISONE 1% CREAM 454 GM JAR TOPICAL SCH ×2 (09:03→21:08)
[2017-03-29] MEDS: MAG HYDROX/AL HYDROX/SIMETH 30 ML, LIDOCAINE VISCOUS 30 ML, diphenhydrAMINE ELIXIR 75 M... PO SCH ×12 (09:13→21:07)
--- NOTE | 2017-03-29 11:02 | P.PN ---
Subjective Principal diagnosis: Acute neutropenic sepsis and respiratory failure 76-year-old male patient who is quite ill and he comes into the hospital because of various medical problems and chronic shortness of breath and difficulty in swallowing and chest congestion and generalized weakness and fatigue. The patient also had limited changes in his mentation. Note that the patient has history of coronary artery disease and he has undergone previous carotid bypass surgery 2014. 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 He has also peripheral vascular disease and has undergone stenting of the left lower extremity. He was recently diagnosed having small cell lung cancer. Diagnosed was established by bronchoscopy as the patient was found to have endobronchial tumor and based on the limited staging of the small cell lung cancer the patient was referred to radiation oncology and hematology oncology. A patient was started on radiation therapy and he was given a total of 10 sessions of radiation therapy and he has another 10 sessions to go. He was also given the first session of systemic chemotherapy with a combination of carboplatinum and HADOOP ARCHITECT-16. Note that the patient was doing well to around a few days ago and he started developing worsening in his mucositis and swallowing. His chest started becoming more congested. He was unable to swallow. He became progressively more weak and dehydrated. The family and himself denied any episodes of aspiration. He denied having any nausea vomiting or diarrhea. He reported burning sensation in his upper chest. At the same time he has noted some purulent nodules arising in his groin and suprapubic area. These are small nodular lesions that are measuring 1-2 cm in size which have some central purulent material draining. No dysuria. No frequency. No urgency. He still producing urine output. In the burst department the patient was found to be also in atrial fibrillation with rapid ventricular response and he was started on IV heparin and IV Cardizem. Rate is still tachycardic in the 120 range. At the same time the patient was found to be neutropenic and pancytopenic. His white cell count was at 0.2. He is single was 8.4. His platelet count at 48, 000. His creatinine was at 1.2. The patient was started on IV fluids. He was given IV fluid boluses and currently is on any normal saline infusion rate of 1 25 mL an hour. The patient is also on a combination of cefepime and vancomycin. No fever at this point. No headache. No neck stiffness. On 03/20/2017 I'm seeing this patient in follow-up in the intensive care unit. He is doing slightly better. Still unable to swallow and still having burning sensation in his throat and upper chest related to severe mucositis. He is afebrile. He is hemodynamically stable. He is on broad-spectrum antibiotics. All of the cultures of been negative. Still pancytopenic and the white cell count today is at 0.3 with a hemoglobin of 8.7 and platelet count of 23,000. He is still in atrial fibrillation with rate being controlled. He is on no anti -coagulation based on his underlying thrombocytopenia. He has a component of non-anion gap metabolic acidosis. His bicarb level is at 17. CAT scan of the brain was done today and the patient had shown mild diffuse cerebral atrophy with mild to moderate chronic small vessel ischemic changes. No other enhancing lesions. Family is at the bedside. The patient is lethargic and still profoundly weak. On 03/21/2017 I'm seeing this patient in follow-up in the intensive care units. Very much delirious and overnight very much agitated for which she was given Haldol and Ativan. Bit more comfortable and calm her today this morning. Family is at the bedside. Remains profoundly pancytopenic without any major recovery in his hematologic profile. Afebrile and hemodynamically stable covered with broad-spectrum antibiotics. All of the cultures have not indicated any specific microbial growth for now. ID is on the case. The pustules and the groin and suprapubic area remains unchanged. There are several of them at least 6 and only a few had some purulent center which seems to be much more dried up on today's evaluation. No bleeding. Platelet counts have dropped down to 13,000. Vancomycin trough is at 17.8. On 03/22/2017 I'm seeing this patient in follow-up. The patient is quite lethargic. He was agitated throughout the night. He had required several doses of Haldol and Ativan. He is per much sedated at this point and seems to be more comfortable. I was told that overnight he was very agitated and difficult to control. He is on 2 point restraints at this point. Hematologically, the patient is still pancytopenic and he still being treated for neutropenic fevers. He has a white cell count of 0.4 with a hemoglobin of 7.7 and platelet count of 17,000. He is afebrile. The cultures obtained from the groin wounds/pustules head turning machine operator to be MRSA and there may be also group D enterococcus. Blood cultures of been negative. Urine culture been negative. The patient is on no pressors. The patient is still on a combination of cefepime and vancomycin and micafungin regarding his neutropenic sepsis. ID is on the case. On 03/23/2017, the patient remains intubated on the mechanical ventilator. The patient sedated with Diprivan. The patient currently is an assist-control mode of ventilation, etc. rate of 20, tidal volume of 500, FiO2 of 40% and a PEEP of 5. The blood gases from this morning showed a pH of 7.37 with a pCO2 of 25 and pO2 of 144. The patient's chest x-ray shows a small right-sided pleural effusion. ET tube is in a good location. The patient is well sedated. The patient is receiving enteral feeding for nutritional support. The patient is on no pressors at this point and he is hemodynamically stable. The patient has been found to have MRSA in the suprapubic pustules and the patient is currently on a combination of vancomycin, Zosyn and micafungin. He remains pancytopenic and there is no improvement in his hematologic profile. White cell count remains at 0.5 with a hemoglobin of 8.6 and a platelet count of 12,000. CAT scan of the bilateral lower extremity was done yesterday and the patient has some enlarged left exterior iliac chain lymph nodes as well as bilateral prominent but nonenlarged inguinal femoral lymph node chains. There is some focal inflammatory changes along the anterior right groin area likely representing an area of cellulitis. No abscesses could be found. No evidence of any necrotizing fasciitis at this point. The patient is tolerating his tube feeds. He is calm and comfortable at this point. No other significant events overnight. On 03/24/2017, patient remains intubated, on mechanical ventilation. His ventilator settings were reviewed, FiO2 is 30%, assist control rate of 20 tidal volume of 500 and PEEP of 5. ABG showed a pO2 of 156 pCO2 of 25 pH of 7.40. Other labs were reviewed, WBC count remains low at 0.4, hemoglobin is 8.3, platelets are 11,000. Basic metabolic profile showed sodium of 145 chloride is 121 patient has a hyperchloremic metabolic acidosis non-anion gap. Chest x-ray showed mild cardiomegaly and left basilar air space disease with small bilateral pleural effusions. Antibiotics remain to include cefepime, micafungin , and vancomycin. Patient remains sedated on propofol drip, hemodynamically seems to be relatively stable. Wound culture has been positive for methicillin staph aureus and Enterococcus faecalis. Both are sensitive to vancomycin. Patient was reevaluated today on 03/25/2017, remains intubated, on mechanical ventilation, his weaning parameters were noted to be poor today, and his respirator rate on CPAP was in the high 50s. Hence no further attempts of weaning was made. ABG showed a pO2 of 94 pCO2 of 26 pH of 7.44. His vent settings are tidal volume of 500 FiO2 of 30% assist control rate of 16 and PEEP is 5. Chest x-ray showed stable by basilar atelectasis or infiltrates. And mild central venous congestion. All labs were reviewed, WBC count is 0.8 today , hemoglobin is 7.8 sodium is 147 chloride is 120 bicarb is 18, renal profile is normal. Patient was earlier on propofol drip, however he was noted to be appropriate when the propofol was discontinued, and a short the CPAP trial was given. Reevaluated today on 03/26/2017, patient remains on mechanical ventilation, intubated, patient is presently on propofol which I plan to discontinue and at least give the patient weaning parameters and possibly a weaning trial. However patient is in atrial flutter, rate is 140, and I plan to reconsult cardiology regarding his atrial flutter, in the meantime I will start the patient on Cardizem with 10 mg bolus and 10 mg drip per hour. Ventilator settings were reviewed, he is presently on assist control rate of 16 tidal volume of 500 FiO2 of 30%, and PEEP is 5. ABG showed a pO2 of 113 pCO2 of 26 pH of 7.45. CBC is showing improvement, WBC count is 2.2 hemoglobin is 8.8 platelets remained low at 57,000. Sodium is 148, hence I will recommend free water flushes. Renal profile is normal. Blood cultures have been negative with cultures have been positive for MRSA and Enterococcus faecalis. Antibiotics remain the same. On 03/27/2017, patient is now off mechanical ventilation, he was extubated yesterday uneventfully. I was actually in the ICU when the patient was extubated last night. He did quite well, tolerated the extubation and continues to tolerate the extubation well. Patient is very appropriate, in no form of respiratory distress. Labs were reviewed, WBC count is up to 4.0 hemoglobin is 8.8 and his platelets are 27,000. His electrolytes continued to show hypernatremia and hyperchloremia, hence I will switch his main IV fluid to D5W at 75 mL per hour. Chest x-ray showed mild cardiomegaly and mild vascular congestion, no evidence of raheem edema. On 03/28/2017, patient seems to be doing quite well, he is hemodynamically stable , in no distress, remains in atrial flutter but the rate seems to be better controlled. Patient is still on Cardizem drip, and I plan to transfer the patient today to selective/monitor bed. Patient denies any cough no wheezing no shortness of breath. He seems to be much improved over the last 2 days. Labs revealed WBC count of 3.8 hemoglobin is 8.4 platelets 19,000. Electrolytes and renal profile are normal. Chest x-ray is relatively unremarkable. On 03/29/2017, patient is now on a monitor bed on selective, doing quite well, relatively asymptomatic except for some weakness. No shortness of breath no cough no wheezing. WBC count is up to 3.8 hemoglobin is 8.4 platelets remain low at 19,000 but no evidence of bleeding. Basic metabolic profile is relatively normal. Renal profile is normal. Blood cultures have been negative while along, but with cultures were positive for MRSA and Enterococcus faecalis. Objective - Vital Signs Vital signs: Vital Signs Temp 97.3 F L 03/29/17 07:55 Pulse 96 03/29/17 08:35 Resp 18 03/29/17 07:55 BP 133/67 03/29/17 07:55 Pulse Ox 99 03/29/17 07:55 Intake & Output 03/28/17 03/29/17 03/29/17 18:59 06:59 18:59 Intake Total 804.667 787.625 Output Total 1350 1300 Balance -545.333 -512.375 Weight 94.3 kg 90.6 kg Intake: IV 600 675 Dextrose 5% in Water 1, 600 675 000 ml @ 75 mls/hr IV . [id number] ERNESTO Rx#:[id number] Intake, IV Titration 104.667 112.625 Amount Diltiazem 125 mg In 104.667 112.625 Sodium Chloride 0.9% 100 ml @ 10 MG/HR 10 mls/hr IV .[id number] ERNESTO Rx#: [id number] Oral 100 Output: Urine 1350 1300 Other: Voiding Method Indwelling Catheter Urinal Urinal Diaper Diaper # Voids 1 # Bowel Movements 1 - Exam Physical Exam: Revealed a 76-year-old white male in no distress. HEENT:[Neck is supple.] [No neck masses.] [No thyromegaly.] [No JVD.] Chest: [Diminished breath sounds at the bases, no crackles, no rhonchi, no wheezes.] Cardiac Exam: [Normal S1 and S2, no S3 gallop, no murmur. Patient remains in atrial flutter, but rate seems to be better controlled.] Abdomen: [Soft, nontender, no megaly, no rebound, no guarding, normal bowel sounds.] Extremities: [No clubbing, 1+ bipedal edema, no cyanosis.] Neurological Exam: [No focal neurologic deficit.] - Labs CBC & Chem 7: 03/28/17 04:33 03/28/17 04:33 Labs: Abnormal Lab Results - Last 24 Hours (Table) 03/28/17 03/28/17 03/28/17 Range/Units 12:28 12:36 18:05 POC Glucose (mg/dL) 112 H 110 H 128 H (75-99) mg/dL 03/29/17 03/29/17 Range/Units 00:13 06:08 POC Glucose (mg/dL) 125 H 112 H (75-99) mg/dL Assessment and Plan Plan: 1 neutropenic sepsis. The patient is afebrile however he has very source of infection at these to be considered including the lungs, esophagitis and no other pustular lesions in the suprapubic and inguinal area which could be potentially staphylococcal or fungal. The wound cultures head turning machine operator to be positive for enterococcus and MRSA. The patient remains on a combination of cefepime, vancomycin and micafungin. 2 limited stage small cell lung cancer status post chemoradiation therapy. The patient has received one session of systemic chemotherapy with carboplatinum and HADOOP ARCHITECT-16 and 10 sessions of radiation therapy 3 esophagitis/mucositis secondary to radiation therapy with secondary difficulty in swallowing. Rule out candidal esophagitis 4 pancytopenia secondary to chemotherapy. . resolving, and seems to be improving over the last couple of days. 5 Atrial flutter , being managed by cardiology on the case. rate seems to be better controlled today. 6 CHF with an ejection fraction of 35% 7 coronary artery disease with multivessel involvement and the patient is status post carotid bypass surgery 8 history of AICD placement 9 dysphagia, currently nothing by mouth 10 acute kidney injury, improved in the creatinine normalized 11 peripheral vascular disease with previous vascular intervention of the left lower extremity 12 prostate cancer status post prostatectomy 13 severe peripheral neuropathy 14 depression/anxiety 15 coronary artery bypass surgery, history of 16 acute respiratory failure resolved, patient required intubation and mechanical ventilation for a few days. 17 hyperchloremic hypernatremia improved Recommendation: Continue present treatment plan and supportive care measures, possible discharge planning rehab facility in the next 2-3 days. Time with Patient: Less than 30
[2017-03-29 11:55] LABS: Glucose,Whole Blood 123 mg/dL (75-99)
[2017-03-29] MEDS: FILGRASTIM-SNDZ 480 MCG/0.8 ML SYRINGE SQ SCH (12:42)
[2017-03-29] MEDS ORDERED: NITROGLYCERIN SL TABS 0.4 MG TAB SUBLINGUAL ONE (13:12)
--- NOTE | 2017-03-29 14:39 | PN ---
This is a 76-year-old white male of mine in outpatient setting with medically significant paroxysmal atrial fibrillation, GERD, hyperlipidemia, hypertension, coronary artery disease and status post coronary bypass grafting in 2014 followed by stenting to left SFA in August 2015. myocardial infarction, ischemia, cardiomyopathy, status post placement of internal cardiac pacemaker, prostate cancer, status post prostatectomy in 1998, peripheral vascular disease, stent placement to the lower legs, osteoarthritis, peripheral neuropathy, and remote nicotine use. The patient was recently diagnosed with small cell carcinoma of the right lung on 02/19 and presented to the hospital with anemia and severe hemoptysis. At that time was started on radiation and chemotherapy on outpatient basis. We controlled the bleeding and after 6 units of blood patient responded quite well. His breathing continued to improve until prior to admission when he developed some generalized weakness, fatigue and shakiness. Originally he had started at [facility] underwent a CT scan, which showed evidence of cardiomyopathy, right upper lung nodule and right hilar invasive mass with acute thoracic adenopathy and moderate severe thickening of the ( ) esophagus. The patient was then transferred to [facility] here at which I obtained him as a patient. At that time I received Dr. Figueroa on of the service and he started with chemotherapy radiation along with radiation department. Then he was found to have profound febrile neutropenia and pancytopenia and evidence of acute renal failure. At that time I was called by Dr. Figueroa. The patient was placed in the hospital on IV antibiotics, received blood and also platelets and we follow him accordingly. Originally the patient was cared for by Dr. Courtney pulmonary service and the cardiac service and then it was turned over to Dr. Salcido who is on the pulmonary service at this time. Dr. Gomez also saw this patient and with his search for the possibility of an infection wound cultures were taken of blister like materials on his chest and ended up being MRSA. At that time the patient continue to have respiratory failure and intensive care provided the care of ventilation support along with intubation. He was on intubation in a stuporous coma for a period of 5 days. At that period of time after one failure of extubation he actually responded. At that time, we were able to extubate him he is at his present state that we are talking about. At this time, he is still on vancomycin, micafungin and Maxipime from an antibiotic point of view. His labs today basically continue with a hemoglobin of 8.4 and a 3.8 white count now. Platelet count still staying right around 19,000. No chem-17for this date. Reviewing again microbiology, his methicillin-resistant Staphylococcus aureus and Enterococcus faecalis on abdominal cultures also, there was a wound in the groin that also grew MRSA. Urine culture has been negative and blood culture now going into 144 hours is negative along with urine culture. At this time REVIEW OF SYSTEMS: The patient was extubated. ENT is within normal limits. CARDIOPULMONARY: Negative chest pain. No shortness of breath. No cough. No paroxysmal nocturnal dyspnea. GI: No hematemesis, melena, hematochezia. : Normal. NEUROMUSCULAR: She has very weak arms and legs but the strength in the arms and legs are slowly recurring. Lower extremity strength is also of returning. SKIN: He has some areas of excoriation still, which appears on the abdomen also, but no draining wounds at this period of time. PSYCHIATRIC: He states he has no depression. He has no true anxiety. Medications include that of his dextrose and water IV. He is on cefepime 2 grams q.8 hours. He is still on Tylenol p.r.n. He is on his Lipitor 80 mg a day, pulmonary updrafts Pulmicort inhaler 1 puff twice a day, vitamin D, magnesium hydroxide p.r.n. t.i.d., ferrous sulfate 325 daily, Zarxio 480 mg every 24 hours, gabapentin 800 four times a day, Haldol p.r.n., some topical cream, cortisone cream, to the lower abdomen area, Dilaudid as needed, insulin to scale, albuterol updrafts 4 times a day, Reglan p.r.n. nausea, metoprolol 25 mg a ( ), again micafungin 100 mg daily, Protonix 40 mg IV, oxybutynin 5 mg, q.i.d., potassium replacement, previous B12 replacement, spironolactone 25 daily, vancomycin 1500 mg q.24, Zinc oxide and vitamin D topical. PHYSICAL EXAMINATION: Alert white male. Vital signs reveal a blood pressure at this time of 136/67, heart rates in the 90s, respiratory rate 18 and oxygen is 99% on room air. EYES: Pupils are equal, round, react to light and accommodation. ENT: Showed tympanic membranes and pharynx to be negative. NECK: Supple with a midline trachea. No adenopathy. No palpable masses. Breath sounds are somewhat diminished, minimal scattered rhonchi with no rales, no wheezes. HEART: S1 to S2. There is no S3 or S4. It is ( ) with no murmur at this time. ABDOMEN: Soft, nontender, with no organomegaly. No masses. EXTREMITIES: Good palpable lower extremity pulses amazingly enough, minimal swelling. No bad rashes. Yet, the abdominal rash was appreciated previously. NEUROLOGIC: He is alert, awake, well oriented to person, place, and thing. His strength his both arms and legs on the right has completely returned. SKIN: Warm and dry. ENDOCRINE: Is within normal limits at this time. No evidence of adrenal insufficiency. PSYCHIATRIC: The patient is well oriented to person, place, and thing. His mentation has improved. He is still slow with adding, but he is well oriented to where he is. ASSESSMENT: 1. Leukopenia sepsis, suspect secondary to recent chemo and radiation for small cell carcinoma post chemoradiation therapy. Wound culture positive for methicillin-resistant Staphylococcus aureus. Patient received one systemic chemotherapy with carboplatin and SENSOR TECHNICIAN-16 and 10 sessions of radiation. 2. Pancytopenia secondary to ( ) chemotherapy. The patient recently on Zarxio, which will be stopped in the next 24 hours. 3. Atrial fibrillation and ventricular flutter, well controlled per Cardiology. The patient is not on anticoagulant until platelet count reaches 50,000. 4. Recent renal failure secondary to hypovolemia, hypoperfusion. 5. Elevated blood sugars on admission. 6. Elevated liver function tests present admission. 7. Dysphagia secondary to radiation with esophagitis and suspected Traci esophagitis. 8. Chronic renal failure stage II. 9. Paroxysmal atrial fibrillation on previous Eliquis. 10. Hyperlipidemia. 11. Hypertension. 12. Chronic heart failure, ischemic cardiomyopathy, status post AICD placement, ejection fraction right around 35%. 13. Coronary artery disease status is by graft and by stent. 14. History of prostate cancer, post prostatectomy. 15. History of gastroesophageal reflux disease. 16. Peripheral vascular disease, status post stenting to lower legs. 17. Peripheral neuropathy. 18. Osteoarthritis. 19. History of anxiety, depression, 20. Resolving severe anemia secondary from bleeding related with hemoptysis from lung cancer. PLAN: We are continuing the same antibiotics accordingly following closely by Dr. Gomez. He is now on monitored bed. We will continue pulmonary toileting, complete pulmonary oxygenation, which is stable. Continue GI and DVT prophylaxis. Watch labs very, very closely. He is here in selective care. Permitted amount of time taken with him on critical care was greater than 30 minutes today.
[2017-03-29 16:54] LABS: Glucose,Whole Blood 138 mg/dL (75-99)
[2017-03-29] MEDS: MICAFUNGIN 100 MG in SODIUM CHLORIDE 0.9% 100 ML IVPB SCH (19:06)
[2017-03-29 23:35] LABS: Glucose,Whole Blood 142 mg/dL (75-99)
[2017-03-30] MEDS: DILTIAZEM 125 MG in SODIUM CHLORIDE 0.9% 100 ML IV SCH ×2 (02:25→16:14)
[2017-03-30] MEDS: DEXTROSE 5% IN WATER 1,000 ML IV SCH ×2 (02:26→17:18)
[2017-03-30] MEDS: PANTOPRAZOLE 40 MG/10 ML VIAL IV SCH ×2 (06:17→17:17)
[2017-03-30] MEDS: VANCOMYCIN 1,500 MG in SODIUM CHLORIDE 0.9% 250 ML IVPB SCH (06:17)
[2017-03-30] MEDS: INSULIN LISPRO (humaLOG) 300 UNIT/3 ML VIAL SQ SCH ×3 (06:18→17:54)
[2017-03-30 06:20] LABS: Glucose,Whole Blood 115 mg/dL (75-99)
[2017-03-30] MEDS ORDERED: NITROGLYCERIN SL TABS 0.4 MG TAB SUBLINGUAL ONE (07:49)
[2017-03-30] MEDS: CEFEPIME 2 GM in SODIUM CHLORIDE 0.9% 50 ML IVPB SCH ×3 (07:52→23:55)
[2017-03-30] MEDS: FERROUS SULFATE 325 MG TAB PO SCH (08:02)
[2017-03-30] MEDS: GABAPENTIN 300 MG CAP PO SCH ×4 (08:02→21:19)
[2017-03-30] MEDS: OXYBUTYNIN CHLORIDE 5 MG TAB PO SCH ×4 (08:02→21:20)
[2017-03-30] MEDS: VITAMIN E (DL,TOCOPHERYL ACET) 400 UNIT CAP PO SCH (08:03)
[2017-03-30] MEDS: CHOLECALCIFEROL 1,000 UNIT TAB PO SCH (08:03)
[2017-03-30] MEDS: PYRIDOXINE 50 MG TAB PO SCH (08:03)
[2017-03-30] MEDS: METOPROLOL TARTRATE 25 MG TAB PO SCH ×3 (08:03→21:20)
[2017-03-30] MEDS: SPIRONOLACTONE 25 MG TAB PO SCH (08:03)
[2017-03-30] MEDS: ATORVASTATIN 80 MG TAB PO SCH (08:03)
[2017-03-30] MEDS: HYDROCORTISONE 1% CREAM 454 GM JAR TOPICAL SCH ×2 (08:04→21:21)
[2017-03-30] MEDS: DOCUSATE ORAL SOLN 100 MG/10 ML CUP PO SCH ×3 (08:04→21:19)
[2017-03-30] MEDS: MULTIVITAMINS, THERA 1 EACH TAB PO SCH (08:04)
[2017-03-30] MEDS: MAG HYDROX/AL HYDROX/SIMETH 30 ML, LIDOCAINE VISCOUS 30 ML, diphenhydrAMINE ELIXIR 75 M... PO SCH ×12 (08:04→21:20)
[2017-03-30] MEDS: ZINC OXIDE 20% OINT 28.4 GM TUBE TOPICAL SCH ×3 (08:04→21:21)
[2017-03-30] MEDS: HYDROmorphone 1 MG/ML 1 ML SYRINGE IVP PRN (08:08)
[2017-03-30] MEDS: IPRATROPIUM-ALBUTEROL 3 ML NEB INHALATION SCH ×4 (08:15→19:53)
[2017-03-30 11:45] LABS: Glucose,Whole Blood 154 mg/dL (75-99)
[2017-03-30 12:17] LABS: ALT 47 U/L (21-72); AST 36 U/L (17-59); Alkaline Phosphatase 109 U/L (38-126); Anion Gap 9 mmol/L; Blood Urea Nitrogen 21 mg/dL (9-20); Calcium 9.1 mg/dL (8.4-10.2); Carbon Dioxide 22 mmol/L (22-30); Chloride 110 mmol/L (98-107); Glucose 144 mg/dL (74-99); Non-African American GFR(MDRD) >60 (>60 ml/min/1.73 sqM); Sodium 141 mmol/L (137-145)
--- NOTE | 2017-03-30 12:22 | P.PN ---
Subjective Principal diagnosis: Acute neutropenic sepsis and respiratory failure 76-year-old male patient who is quite ill and he comes into the hospital because of various medical problems and chronic shortness of breath and difficulty in swallowing and chest congestion and generalized weakness and fatigue. The patient also had limited changes in his mentation. Note that the patient has history of coronary artery disease and he has undergone previous carotid bypass surgery 2014. 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 He has also peripheral vascular disease and has undergone stenting of the left lower extremity. He was recently diagnosed having small cell lung cancer. Diagnosed was established by bronchoscopy as the patient was found to have endobronchial tumor and based on the limited staging of the small cell lung cancer the patient was referred to radiation oncology and hematology oncology. A patient was started on radiation therapy and he was given a total of 10 sessions of radiation therapy and he has another 10 sessions to go. He was also given the first session of systemic chemotherapy with a combination of carboplatinum and BRIDGE REPAIR CREW PERSON-16. Note that the patient was doing well to around a few days ago and he started developing worsening in his mucositis and swallowing. His chest started becoming more congested. He was unable to swallow. He became progressively more weak and dehydrated. The family and himself denied any episodes of aspiration. He denied having any nausea vomiting or diarrhea. He reported burning sensation in his upper chest. At the same time he has noted some purulent nodules arising in his groin and suprapubic area. These are small nodular lesions that are measuring 1-2 cm in size which have some central purulent material draining. No dysuria. No frequency. No urgency. He still producing urine output. In the burst department the patient was found to be also in atrial fibrillation with rapid ventricular response and he was started on IV heparin and IV Cardizem. Rate is still tachycardic in the 120 range. At the same time the patient was found to be neutropenic and pancytopenic. His white cell count was at 0.2. He is single was 8.4. His platelet count at 48, 000. His creatinine was at 1.2. The patient was started on IV fluids. He was given IV fluid boluses and currently is on any normal saline infusion rate of 1 25 mL an hour. The patient is also on a combination of cefepime and vancomycin. No fever at this point. No headache. No neck stiffness. On 03/20/2017 I'm seeing this patient in follow-up in the intensive care unit. He is doing slightly better. Still unable to swallow and still having burning sensation in his throat and upper chest related to severe mucositis. He is afebrile. He is hemodynamically stable. He is on broad-spectrum antibiotics. All of the cultures of been negative. Still pancytopenic and the white cell count today is at 0.3 with a hemoglobin of 8.7 and platelet count of 23,000. He is still in atrial fibrillation with rate being controlled. He is on no anti -coagulation based on his underlying thrombocytopenia. He has a component of non-anion gap metabolic acidosis. His bicarb level is at 17. CAT scan of the brain was done today and the patient had shown mild diffuse cerebral atrophy with mild to moderate chronic small vessel ischemic changes. No other enhancing lesions. Family is at the bedside. The patient is lethargic and still profoundly weak. On 03/21/2017 I'm seeing this patient in follow-up in the intensive care units. Very much delirious and overnight very much agitated for which she was given Haldol and Ativan. Bit more comfortable and calm her today this morning. Family is at the bedside. Remains profoundly pancytopenic without any major recovery in his hematologic profile. Afebrile and hemodynamically stable covered with broad-spectrum antibiotics. All of the cultures have not indicated any specific microbial growth for now. ID is on the case. The pustules and the groin and suprapubic area remains unchanged. There are several of them at least 6 and only a few had some purulent center which seems to be much more dried up on today's evaluation. No bleeding. Platelet counts have dropped down to 13,000. Vancomycin trough is at 17.8. On 03/22/2017 I'm seeing this patient in follow-up. The patient is quite lethargic. He was agitated throughout the night. He had required several doses of Haldol and Ativan. He is per much sedated at this point and seems to be more comfortable. I was told that overnight he was very agitated and difficult to control. He is on 2 point restraints at this point. Hematologically, the patient is still pancytopenic and he still being treated for neutropenic fevers. He has a white cell count of 0.4 with a hemoglobin of 7.7 and platelet count of 17,000. He is afebrile. The cultures obtained from the groin wounds/pustules hand turner to be MRSA and there may be also group D enterococcus. Blood cultures of been negative. Urine culture been negative. The patient is on no pressors. The patient is still on a combination of cefepime and vancomycin and micafungin regarding his neutropenic sepsis. ID is on the case. On 03/23/2017, the patient remains intubated on the mechanical ventilator. The patient sedated with Diprivan. The patient currently is an assist-control mode of ventilation, etc. rate of 20, tidal volume of 500, FiO2 of 40% and a PEEP of 5. The blood gases from this morning showed a pH of 7.37 with a pCO2 of 25 and pO2 of 144. The patient's chest x-ray shows a small right-sided pleural effusion. ET tube is in a good location. The patient is well sedated. The patient is receiving enteral feeding for nutritional support. The patient is on no pressors at this point and he is hemodynamically stable. The patient has been found to have MRSA in the suprapubic pustules and the patient is currently on a combination of vancomycin, Zosyn and micafungin. He remains pancytopenic and there is no improvement in his hematologic profile. White cell count remains at 0.5 with a hemoglobin of 8.6 and a platelet count of 12,000. CAT scan of the bilateral lower extremity was done yesterday and the patient has some enlarged left exterior iliac chain lymph nodes as well as bilateral prominent but nonenlarged inguinal femoral lymph node chains. There is some focal inflammatory changes along the anterior right groin area likely representing an area of cellulitis. No abscesses could be found. No evidence of any necrotizing fasciitis at this point. The patient is tolerating his tube feeds. He is calm and comfortable at this point. No other significant events overnight. On 03/24/2017, patient remains intubated, on mechanical ventilation. His ventilator settings were reviewed, FiO2 is 30%, assist control rate of 20 tidal volume of 500 and PEEP of 5. ABG showed a pO2 of 156 pCO2 of 25 pH of 7.40. Other labs were reviewed, WBC count remains low at 0.4, hemoglobin is 8.3, platelets are 11,000. Basic metabolic profile showed sodium of 145 chloride is 121 patient has a hyperchloremic metabolic acidosis non-anion gap. Chest x-ray showed mild cardiomegaly and left basilar air space disease with small bilateral pleural effusions. Antibiotics remain to include cefepime, micafungin , and vancomycin. Patient remains sedated on propofol drip, hemodynamically seems to be relatively stable. Wound culture has been positive for methicillin staph aureus and Enterococcus faecalis. Both are sensitive to vancomycin. Patient was reevaluated today on 03/25/2017, remains intubated, on mechanical ventilation, his weaning parameters were noted to be poor today, and his respirator rate on CPAP was in the high 50s. Hence no further attempts of weaning was made. ABG showed a pO2 of 94 pCO2 of 26 pH of 7.44. His vent settings are tidal volume of 500 FiO2 of 30% assist control rate of 16 and PEEP is 5. Chest x-ray showed stable by basilar atelectasis or infiltrates. And mild central venous congestion. All labs were reviewed, WBC count is 0.8 today , hemoglobin is 7.8 sodium is 147 chloride is 120 bicarb is 18, renal profile is normal. Patient was earlier on propofol drip, however he was noted to be appropriate when the propofol was discontinued, and a short the CPAP trial was given. Reevaluated today on 03/26/2017, patient remains on mechanical ventilation, intubated, patient is presently on propofol which I plan to discontinue and at least give the patient weaning parameters and possibly a weaning trial. However patient is in atrial flutter, rate is 140, and I plan to reconsult cardiology regarding his atrial flutter, in the meantime I will start the patient on Cardizem with 10 mg bolus and 10 mg drip per hour. Ventilator settings were reviewed, he is presently on assist control rate of 16 tidal volume of 500 FiO2 of 30%, and PEEP is 5. ABG showed a pO2 of 113 pCO2 of 26 pH of 7.45. CBC is showing improvement, WBC count is 2.2 hemoglobin is 8.8 platelets remained low at 57,000. Sodium is 148, hence I will recommend free water flushes. Renal profile is normal. Blood cultures have been negative with cultures have been positive for MRSA and Enterococcus faecalis. Antibiotics remain the same. On 03/27/2017, patient is now off mechanical ventilation, he was extubated yesterday uneventfully. I was actually in the ICU when the patient was extubated last night. He did quite well, tolerated the extubation and continues to tolerate the extubation well. Patient is very appropriate, in no form of respiratory distress. Labs were reviewed, WBC count is up to 4.0 hemoglobin is 8.8 and his platelets are 27,000. His electrolytes continued to show hypernatremia and hyperchloremia, hence I will switch his main IV fluid to D5W at 75 mL per hour. Chest x-ray showed mild cardiomegaly and mild vascular congestion, no evidence of raheem edema. On 03/28/2017, patient seems to be doing quite well, he is hemodynamically stable , in no distress, remains in atrial flutter but the rate seems to be better controlled. Patient is still on Cardizem drip, and I plan to transfer the patient today to selective/monitor bed. Patient denies any cough no wheezing no shortness of breath. He seems to be much improved over the last 2 days. Labs revealed WBC count of 3.8 hemoglobin is 8.4 platelets 19,000. Electrolytes and renal profile are normal. Chest x-ray is relatively unremarkable. On 03/29/2017, patient is now on a monitor bed on selective, doing quite well, relatively asymptomatic except for some weakness. No shortness of breath no cough no wheezing. WBC count is up to 3.8 hemoglobin is 8.4 platelets remain low at 19,000 but no evidence of bleeding. Basic metabolic profile is relatively normal. Renal profile is normal. Blood cultures have been negative while along, but with cultures were positive for MRSA and Enterococcus faecalis. On 03/30/2017, patient continues to do relatively well. Relatively asymptomatic , generally weak, no cough no wheezing no shortness of breath. CBC was last done on 03/28. No labs were done in the last 2 days. Except for blood sugar. Objective - Vital Signs Vital signs: Vital Signs Temp 97.0 F L 03/30/17 11:41 Pulse 88 03/30/17 12:11 Resp 18 03/30/17 11:41 BP 122/70 03/30/17 11:41 Pulse Ox 99 03/30/17 11:41 Intake & Output 03/29/17 03/30/17 03/30/17 18:59 06:59 18:59 Intake Total 1019.659 188 4431 Output Total 1350 475 400 Balance -330.875 294 680 Weight 89.7 kg Intake: IV 600 600 600 Dextrose 5% in Water 1, 600 600 600 000 ml @ 75 mls/hr IV . [id number] ERNESTO Rx#:[id number] Intake, IV Titration 419.125 169 300 Amount Cefepime 2 gm In Sodium 50 100 50 Chloride 0.9% 50 ml @ 100 mls/hr IVPB Q8H ERNESTO Rx#: [id number] Diltiazem 125 mg In 119.125 69 Sodium Chloride 0.9% 100 ml @ 10 MG/HR 10 mls/hr IV .[id number] ERNESTO Rx#: [id number] Vancomycin 1,500 mg In 250 250 Sodium Chloride 0.9% 250 ml @ 125 mls/hr IVPB Q24H ERNESTO Rx#:[id number] Oral 180 Output: Urine 1350 475 400 Other: Voiding Method Urinal Urinal Urinal Diaper Diaper Diaper # Voids 3 1 - Exam Physical Exam: Revealed a 76-year-old white male in no distress. HEENT:[Neck is supple.] [No neck masses.] [No thyromegaly.] [No JVD.] Chest: [Diminished breath sounds at the bases, no crackles, no rhonchi, no wheezes.] Cardiac Exam: [Normal S1 and S2, no S3 gallop, no murmur. Patient remains in atrial flutter, but rate seems to be better controlled.] Abdomen: [Soft, nontender, no megaly, no rebound, no guarding, normal bowel sounds.] Extremities: [No clubbing, 1+ bipedal edema, no cyanosis.] Neurological Exam: [No focal neurologic deficit.] - Labs CBC & Chem 7: 03/28/17 04:33 03/28/17 04:33 Labs: Abnormal Lab Results - Last 24 Hours (Table) 03/29/17 03/29/17 03/30/17 Range/Units 16:48 23:31 06:18 POC Glucose (mg/dL) 138 H 142 H 115 H (75-99) mg/dL 03/30/17 Range/Units 11:21 POC Glucose (mg/dL) 154 H (75-99) mg/dL Assessment and Plan Plan: 1 neutropenic sepsis. The patient is afebrile however he has very source of infection at these to be considered including the lungs, esophagitis and no other pustular lesions in the suprapubic and inguinal area which could be potentially staphylococcal or fungal. The wound cultures hand turner to be positive for enterococcus and MRSA. The patient remains on a combination of cefepime, vancomycin and micafungin. 2 limited stage small cell lung cancer status post chemoradiation therapy. The patient has received one session of systemic chemotherapy with carboplatinum and BRIDGE REPAIR CREW PERSON-16 and 10 sessions of radiation therapy 3 esophagitis/mucositis secondary to radiation therapy with secondary difficulty in swallowing. Rule out candidal esophagitis 4 pancytopenia secondary to chemotherapy. . resolving, and seems to be improving over the last couple of days. 5 Atrial flutter , being managed by cardiology on the case. rate seems to be better controlled today. 6 CHF with an ejection fraction of 35% 7 coronary artery disease with multivessel involvement and the patient is status post carotid bypass surgery 8 history of AICD placement 9 dysphagia, currently nothing by mouth 10 acute kidney injury, improved in the creatinine normalized 11 peripheral vascular disease with previous vascular intervention of the left lower extremity 12 prostate cancer status post prostatectomy 13 severe peripheral neuropathy 14 depression/anxiety 15 coronary artery bypass surgery, history of 16 acute respiratory failure resolved, patient required intubation and mechanical ventilation for a few days. Resolved 17 hyperchloremic hypernatremia improved Recommendation: Continue present treatment plan and supportive care measures, possible discharge planning rehab facility in the next 2-3 days. Time with Patient: Less than 30
[2017-03-30] MEDS: HYDROcodone/APAP 5-325MG 1 EACH TAB PO PRN ×3 (12:41→21:20)
[2017-03-30] MEDS: FILGRASTIM-SNDZ 480 MCG/0.8 ML SYRINGE SQ SCH (13:57)
[2017-03-30 16:42] LABS: Glucose,Whole Blood 140 mg/dL (75-99)
--- NOTE | 2017-03-30 17:24 | PN ---
The patient is a 76-year-old white male with a history of significant paroxysmal nocturnal atrial fibrillation, GERD, hyperlipidemia, hypertension, coronary artery disease, status post coronary bypass followed by stents in [facility] in August 2015. He had a myocardial infarction post ischemic cardiomyopathy, status post stent placement along with internal pacemaker placement. The patient also had prostate cancer status post prostatectomy in ( ) peripheral vascular disease with stent placement to the lower legs, osteoarthritis, peripheral neuropathy and remote nicotine use. The patient was diagnosed here on bronchoscopy by Dr. Sol with small cell carcinoma of the lung on 02/19. He actually presented to the hospital with anemia and hemoptysis. Being sent over here from [place] after CAT scan was done. At that time, there was also metastatic disease already seen to the liver. He was initially started on radiation and chemotherapy on an outpatient basis. During that period of time he received 6 units of blood to correct his hemoptysis and was discharged. Shortly thereafter he was brought back to the hospital with extreme weakness and respiratory failure. He was at that time placed into the ICU and intubated and followed accordingly. Dr. 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 He was then intubated. Dr. Gomez saw him and put him on empiric antibiotics accordingly. The source for infection began and showed that he had open lesions in his pelvic area, which were folliculitis, one was opened and cultured and deep culture inside showed MRSA. The patient at that time was treated empirically with antibiotics. He was stuporous and comatose for a 5 day period of time. He was kept on vancomycin, Micafungin and Maxipime IV antibiotics over a period since this admission. He received platelets and did receive blood. Again reviewing his microbiology ended up with methicillin-resistant Staph aureus and Enterococcus faecalis on the abdominal cultures. His urine cultures and blood cultures have been negative in to 160 hours. His white blood cell count went up to 3.8 and his hemoglobin is at 8.4 and platelets in the 20,000 range. We are waiting for the results of the blood work including chem-17 today. His social history is unchanged as is his family history. PHYSICAL EXAMINATION: Alert, white male, well orientated to person, place, and thing. He did have evidence of chest pain today with swallowing and he does have this esophagitis that is secondary from radiation that has been quite difficult. He is able to drink some fluids though. ENT: At this time is just neck pain that he has. NECK: Supple. He has an open lesion on his ear that is being treated with zinc oxide. Neck is supple with midline trachea. Pupils are equal, round, react to light and accommodation. Mouth is not dry. CARDIOPULMONARY: Negative chest pain. No shortness of breath. No paroxysmal nocturnal dyspnea. REVIEW OF SYSTEMS: GI: No hematemesis, melena, or hematochezia. : Is normal. MUSCULOSKELETAL: Still has very weak arms but good arm strength and good squeezing strength today. SKIN: Is dry and there are some areas of hyperpigmentation of his lower legs. PSYCHIATRIC: He is not depressed. He seems to feel well orientated to person, place, and time. Medication list reviewed from yesterday and at this point is unchanged. PHYSICAL EXAMINATION: Alert, white male, well orientated to person, place, and time. Blood pressure is 130/67, heart rates in the 90s, oxygen is 95%. EYES: Pupils are equal, round, react to light and accommodation. ENT: Showed tympanic membranes and pharynx to be negative. Neck is supple. Midline trachea. No adenopathy. No palpable masses. Breath sounds are somewhat diminished, but there are no rhonchi and no rales. Heart S1, S2 is normal. There is no S3, S4. Rhythm is irregular with no murmur. ABDOMEN: Soft, nontender, with no organomegaly. The groin has some "healed lesions" but there is some scar tissue as one. DuoDERM patch is still applied to be reviewed by Dr. Win and will probably be removed. ABDOMEN: Soft, nontender, with no organomegaly. EXTREMITIES: Good palpable lower extremity pulses. No rashes. NEUROLOGIC: Is alert, well oriented to person, place, and time. He has got cranial nerve II through XII grossly intact. Both arm strengths are now equal bilaterally. His leg strength on the right is now equal to the left and vascular he has good vascular components was distal dorsalis pedis pulses. Endocrine is within normal limits. No evidence of adrenal insufficiency. PSYCHIATRIC: Again, well oriented to person, place, and thing. His mentation has improved greatly. He even speaks much quicker and responds to questions and accurately for last 24 hours. ASSESSMENT: 1. Leukopenia sepsis suspected to chemotherapy and radiation for a small carcinoma post chemotherapy radiation. Wound culture positive for methicillin Staph. Patient has receive one systemic chemotherapy with carboplatin AIR BRAKES INSPECTOR-16 and 10 sessions radiation. 2. Pancytopenia secondary to chemotherapy. The patient is presently on ( ) which will be stopped in the next 24 hours. 3. Atrial fibrillation/flutter with a controlled rate now into the 90s. The patient is also on anticoagulants until platelet count is 50,000. 4. Renal failure secondary to hypovolemia hypotension elevated blood sugars on admission. 5. Elevated liver function tests secondary to metastatic disease to liver. 6. Dysphagia secondary to radiation with esophagitis. 7. History of chronic renal failure grade 2. 8. Proximal atrial fibrillation. 9. Hyperlipidemia. 10. Hypertension. 11. Congestive heart failure with ischemic cardiomyopathy, status post AICD placement ejection fraction about 35%. 12. Coronary artery disease with graft and stent placement. 13. History of prostate cancer post prostatectomy. 14. History of GE reflux. 15. Peripheral vascular disease. 16. Peripheral neuropathy. 17. Osteoarthritis. 18. Anxiety, neurosis. 19. Resolving anemia secondary from bleeding from hemoptysis ( ). Antibiotics are being controlled by Dr. Gomez. I just talked with Dr. Salcido. Patient is doing better with continuing pulmonary toiletry. P.r.n. oxygen. Gastrointestinal and DVT prophylaxis and also Eliquis for his A. fib. Close control of blood sugars at this time. He also had troponin. We increased his ( ) drinking material to 10 mL a.c. meals, also hydrocodone 5/325 p.r.n. pain before meals.
[2017-03-30] MEDS: MICAFUNGIN 100 MG in SODIUM CHLORIDE 0.9% 100 ML IVPB SCH (17:55)
[2017-03-30 20:32] LABS: Glucose,Whole Blood 160 mg/dL (75-99)
[2017-03-31] MEDS: INSULIN LISPRO (humaLOG) 300 UNIT/3 ML VIAL SQ SCH ×5 (01:37→21:41)
[2017-03-31] MEDS: DILTIAZEM 125 MG in SODIUM CHLORIDE 0.9% 100 ML IV SCH ×2 (03:43→15:52)
[2017-03-31 05:56] LABS: Glucose,Whole Blood 114 mg/dL (75-99)
[2017-03-31 06:19] LABS: CH 32.4; CHCM 33.3; HCT 22.2 % (39.0-53.0); HGB 7.4 gm/dL (13.0-17.5); Immature Gran Flag Slight; MCH 32.4 pg (25.0-35.0); MCHC 33.1 g/dL (31.0-37.0); MCV 97.7 fL (80.0-100.0); Mean Platelet Volume 10.4; RBC 2.27 m/uL (4.30-5.90); RDW 15.5 % (11.5-15.5); WBC 9.6 k/uL (3.8-10.6); WBC (Perox) 9.92
[2017-03-31] MEDS: VANCOMYCIN 1,500 MG in SODIUM CHLORIDE 0.9% 250 ML IVPB SCH (06:44)
[2017-03-31] MEDS: DEXTROSE 5% IN WATER 1,000 ML IV SCH ×2 (06:45→22:38)
[2017-03-31] MEDS: PANTOPRAZOLE 40 MG/10 ML VIAL IV SCH ×2 (06:50→18:02)
[2017-03-31] MEDS: HYDROcodone/APAP 5-325MG 1 EACH TAB PO PRN ×2 (06:50→21:37)
[2017-03-31 07:20] LABS: Add Differential Manual Differential
[2017-03-31 07:23] LABS: Manual Review Performed; Nucleated Red Blood Cells 0 /100 WBC (0-0); Total Cells Counted 100
[2017-03-31] MEDS: CEFEPIME 2 GM in SODIUM CHLORIDE 0.9% 50 ML IVPB SCH ×3 (08:15→23:22)
[2017-03-31] MEDS: GABAPENTIN 300 MG CAP PO SCH ×4 (08:16→21:38)
[2017-03-31] MEDS: VITAMIN E (DL,TOCOPHERYL ACET) 400 UNIT CAP PO SCH (08:16)
[2017-03-31] MEDS: CHOLECALCIFEROL 1,000 UNIT TAB PO SCH (08:16)
[2017-03-31] MEDS: DOCUSATE ORAL SOLN 100 MG/10 ML CUP PO SCH ×3 (08:16→21:37)
[2017-03-31] MEDS: MAG HYDROX/AL HYDROX/SIMETH 30 ML, LIDOCAINE VISCOUS 30 ML, diphenhydrAMINE ELIXIR 75 M... PO SCH ×12 (08:16→21:38)
[2017-03-31] MEDS: PYRIDOXINE 50 MG TAB PO SCH (08:16)
[2017-03-31] MEDS: OXYBUTYNIN CHLORIDE 5 MG TAB PO SCH ×4 (08:17→21:38)
[2017-03-31] MEDS: MULTIVITAMINS, THERA 1 EACH TAB PO SCH (08:17)
[2017-03-31] MEDS: SPIRONOLACTONE 25 MG TAB PO SCH (08:17)
[2017-03-31] MEDS: ATORVASTATIN 80 MG TAB PO SCH (08:17)
[2017-03-31] MEDS: METOPROLOL TARTRATE 25 MG TAB PO SCH ×3 (08:17→21:46)
[2017-03-31] MEDS: FERROUS SULFATE 325 MG TAB PO SCH (08:17)
[2017-03-31] MEDS: ZINC OXIDE 20% OINT 28.4 GM TUBE TOPICAL SCH ×3 (08:18→21:37)
[2017-03-31] MEDS: HYDROCORTISONE 1% CREAM 454 GM JAR TOPICAL SCH ×2 (08:18→21:37)
[2017-03-31] MEDS: IPRATROPIUM-ALBUTEROL 3 ML NEB INHALATION SCH ×4 (08:24→19:37)
[2017-03-31] MEDS: SYMBICORT 160-4.5 MCG INHALER INHALATION SCH (08:24)
--- NOTE | 2017-03-31 11:30 | P.PN ---
Subjective Principal diagnosis: Acute neutropenic sepsis and respiratory failure 76-year-old male patient who is quite ill and he comes into the hospital because of various medical problems and chronic shortness of breath and difficulty in swallowing and chest congestion and generalized weakness and fatigue. The patient also had limited changes in his mentation. Note that the patient has history of coronary artery disease and he has undergone previous carotid bypass surgery 2014. 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 He has also peripheral vascular disease and has undergone stenting of the left lower extremity. He was recently diagnosed having small cell lung cancer. Diagnosed was established by bronchoscopy as the patient was found to have endobronchial tumor and based on the limited staging of the small cell lung cancer the patient was referred to radiation oncology and hematology oncology. A patient was started on radiation therapy and he was given a total of 10 sessions of radiation therapy and he has another 10 sessions to go. He was also given the first session of systemic chemotherapy with a combination of carboplatinum and CARGO MATE-16. Note that the patient was doing well to around a few days ago and he started developing worsening in his mucositis and swallowing. His chest started becoming more congested. He was unable to swallow. He became progressively more weak and dehydrated. The family and himself denied any episodes of aspiration. He denied having any nausea vomiting or diarrhea. He reported burning sensation in his upper chest. At the same time he has noted some purulent nodules arising in his groin and suprapubic area. These are small nodular lesions that are measuring 1-2 cm in size which have some central purulent material draining. No dysuria. No frequency. No urgency. He still producing urine output. In the burst department the patient was found to be also in atrial fibrillation with rapid ventricular response and he was started on IV heparin and IV Cardizem. Rate is still tachycardic in the 120 range. At the same time the patient was found to be neutropenic and pancytopenic. His white cell count was at 0.2. He is single was 8.4. His platelet count at 48, 000. His creatinine was at 1.2. The patient was started on IV fluids. He was given IV fluid boluses and currently is on any normal saline infusion rate of 1 25 mL an hour. The patient is also on a combination of cefepime and vancomycin. No fever at this point. No headache. No neck stiffness. On 03/20/2017 I'm seeing this patient in follow-up in the intensive care unit. He is doing slightly better. Still unable to swallow and still having burning sensation in his throat and upper chest related to severe mucositis. He is afebrile. He is hemodynamically stable. He is on broad-spectrum antibiotics. All of the cultures of been negative. Still pancytopenic and the white cell count today is at 0.3 with a hemoglobin of 8.7 and platelet count of 23,000. He is still in atrial fibrillation with rate being controlled. He is on no anti -coagulation based on his underlying thrombocytopenia. He has a component of non-anion gap metabolic acidosis. His bicarb level is at 17. CAT scan of the brain was done today and the patient had shown mild diffuse cerebral atrophy with mild to moderate chronic small vessel ischemic changes. No other enhancing lesions. Family is at the bedside. The patient is lethargic and still profoundly weak. On 03/21/2017 I'm seeing this patient in follow-up in the intensive care units. Very much delirious and overnight very much agitated for which she was given Haldol and Ativan. Bit more comfortable and calm her today this morning. Family is at the bedside. Remains profoundly pancytopenic without any major recovery in his hematologic profile. Afebrile and hemodynamically stable covered with broad-spectrum antibiotics. All of the cultures have not indicated any specific microbial growth for now. ID is on the case. The pustules and the groin and suprapubic area remains unchanged. There are several of them at least 6 and only a few had some purulent center which seems to be much more dried up on today's evaluation. No bleeding. Platelet counts have dropped down to 13,000. Vancomycin trough is at 17.8. On 03/22/2017 I'm seeing this patient in follow-up. The patient is quite lethargic. He was agitated throughout the night. He had required several doses of Haldol and Ativan. He is per much sedated at this point and seems to be more comfortable. I was told that overnight he was very agitated and difficult to control. He is on 2 point restraints at this point. Hematologically, the patient is still pancytopenic and he still being treated for neutropenic fevers. He has a white cell count of 0.4 with a hemoglobin of 7.7 and platelet count of 17,000. He is afebrile. The cultures obtained from the groin wounds/pustules returned item clerk to be MRSA and there may be also group D enterococcus. Blood cultures of been negative. Urine culture been negative. The patient is on no pressors. The patient is still on a combination of cefepime and vancomycin and micafungin regarding his neutropenic sepsis. ID is on the case. On 03/23/2017, the patient remains intubated on the mechanical ventilator. The patient sedated with Diprivan. The patient currently is an assist-control mode of ventilation, etc. rate of 20, tidal volume of 500, FiO2 of 40% and a PEEP of 5. The blood gases from this morning showed a pH of 7.37 with a pCO2 of 25 and pO2 of 144. The patient's chest x-ray shows a small right-sided pleural effusion. ET tube is in a good location. The patient is well sedated. The patient is receiving enteral feeding for nutritional support. The patient is on no pressors at this point and he is hemodynamically stable. The patient has been found to have MRSA in the suprapubic pustules and the patient is currently on a combination of vancomycin, Zosyn and micafungin. He remains pancytopenic and there is no improvement in his hematologic profile. White cell count remains at 0.5 with a hemoglobin of 8.6 and a platelet count of 12,000. CAT scan of the bilateral lower extremity was done yesterday and the patient has some enlarged left exterior iliac chain lymph nodes as well as bilateral prominent but nonenlarged inguinal femoral lymph node chains. There is some focal inflammatory changes along the anterior right groin area likely representing an area of cellulitis. No abscesses could be found. No evidence of any necrotizing fasciitis at this point. The patient is tolerating his tube feeds. He is calm and comfortable at this point. No other significant events overnight. On 03/24/2017, patient remains intubated, on mechanical ventilation. His ventilator settings were reviewed, FiO2 is 30%, assist control rate of 20 tidal volume of 500 and PEEP of 5. ABG showed a pO2 of 156 pCO2 of 25 pH of 7.40. Other labs were reviewed, WBC count remains low at 0.4, hemoglobin is 8.3, platelets are 11,000. Basic metabolic profile showed sodium of 145 chloride is 121 patient has a hyperchloremic metabolic acidosis non-anion gap. Chest x-ray showed mild cardiomegaly and left basilar air space disease with small bilateral pleural effusions. Antibiotics remain to include cefepime, micafungin , and vancomycin. Patient remains sedated on propofol drip, hemodynamically seems to be relatively stable. Wound culture has been positive for methicillin staph aureus and Enterococcus faecalis. Both are sensitive to vancomycin. Patient was reevaluated today on 03/25/2017, remains intubated, on mechanical ventilation, his weaning parameters were noted to be poor today, and his respirator rate on CPAP was in the high 50s. Hence no further attempts of weaning was made. ABG showed a pO2 of 94 pCO2 of 26 pH of 7.44. His vent settings are tidal volume of 500 FiO2 of 30% assist control rate of 16 and PEEP is 5. Chest x-ray showed stable by basilar atelectasis or infiltrates. And mild central venous congestion. All labs were reviewed, WBC count is 0.8 today , hemoglobin is 7.8 sodium is 147 chloride is 120 bicarb is 18, renal profile is normal. Patient was earlier on propofol drip, however he was noted to be appropriate when the propofol was discontinued, and a short the CPAP trial was given. Reevaluated today on 03/26/2017, patient remains on mechanical ventilation, intubated, patient is presently on propofol which I plan to discontinue and at least give the patient weaning parameters and possibly a weaning trial. However patient is in atrial flutter, rate is 140, and I plan to reconsult cardiology regarding his atrial flutter, in the meantime I will start the patient on Cardizem with 10 mg bolus and 10 mg drip per hour. Ventilator settings were reviewed, he is presently on assist control rate of 16 tidal volume of 500 FiO2 of 30%, and PEEP is 5. ABG showed a pO2 of 113 pCO2 of 26 pH of 7.45. CBC is showing improvement, WBC count is 2.2 hemoglobin is 8.8 platelets remained low at 57,000. Sodium is 148, hence I will recommend free water flushes. Renal profile is normal. Blood cultures have been negative with cultures have been positive for MRSA and Enterococcus faecalis. Antibiotics remain the same. On 03/27/2017, patient is now off mechanical ventilation, he was extubated yesterday uneventfully. I was actually in the ICU when the patient was extubated last night. He did quite well, tolerated the extubation and continues to tolerate the extubation well. Patient is very appropriate, in no form of respiratory distress. Labs were reviewed, WBC count is up to 4.0 hemoglobin is 8.8 and his platelets are 27,000. His electrolytes continued to show hypernatremia and hyperchloremia, hence I will switch his main IV fluid to D5W at 75 mL per hour. Chest x-ray showed mild cardiomegaly and mild vascular congestion, no evidence of raheem edema. On 03/28/2017, patient seems to be doing quite well, he is hemodynamically stable , in no distress, remains in atrial flutter but the rate seems to be better controlled. Patient is still on Cardizem drip, and I plan to transfer the patient today to selective/monitor bed. Patient denies any cough no wheezing no shortness of breath. He seems to be much improved over the last 2 days. Labs revealed WBC count of 3.8 hemoglobin is 8.4 platelets 19,000. Electrolytes and renal profile are normal. Chest x-ray is relatively unremarkable. On 03/29/2017, patient is now on a monitor bed on selective, doing quite well, relatively asymptomatic except for some weakness. No shortness of breath no cough no wheezing. WBC count is up to 3.8 hemoglobin is 8.4 platelets remain low at 19,000 but no evidence of bleeding. Basic metabolic profile is relatively normal. Renal profile is normal. Blood cultures have been negative while along, but with cultures were positive for MRSA and Enterococcus faecalis. On 03/30/2017, patient continues to do relatively well. Relatively asymptomatic , generally weak, no cough no wheezing no shortness of breath. CBC was last done on 03/28. No labs were done in the last 2 days. Except for blood sugar. Patient was reevaluated today on 03/31/2017, continues to do relatively well, relatively asymptomatic, remains generally weak, no cough no wheezing no shortness of breath. Labs were reviewed, WBC count is 9.6 hemoglobin is 7.4 [place] [address]. Last chest x-ray was on 03/28/2017, it was also reviewed, and there was no evidence of active process. Objective - Vital Signs Vital signs: Vital Signs Temp 97.7 F 03/31/17 08:00 Pulse 86 03/31/17 08:34 Resp 18 03/31/17 08:00 BP 126/57 03/31/17 08:00 Pulse Ox 96 03/31/17 08:00 Intake & Output 03/30/17 03/31/17 03/31/17 18:59 06:59 18:59 Intake Total 7200.679 4960.125 1014.25 Output Total 900 Balance 756.559 3668.125 1014.25 Weight 90 kg Intake: IV 600 1200 Dextrose 5% in Water 1, 600 1200 000 ml @ 75 mls/hr IV . [id number] ER[facility]STO Rx#:[id number] Intake, IV Titration 403.625 236.125 54.25 Amount Cefepime 2 gm In Sodium 50 50 Chloride 0.9% 50 ml @ 100 mls/hr IVPB Q8H ER[facility]ST[facility] Rx#: [id number] Diltiazem 125 mg In 103.625 86.125 54.25 Sodium Chloride 0.9% 100 ml @ 10 MG/HR 10 mls/hr IV .[id number] ERNESTO Rx#: [id number] Micafungin 100 mg In 100 Sodium Chloride 0.9% 100 ml @ 100 mls/hr IVPB DAILY@1800 ERNESTO Rx#: [id number] Vancomycin 1,500 mg In 250 Sodium Chloride 0.9% 250 ml @ 125 mls/hr IVPB Q24H [facility] Rx#:[id number] Oral 417 960 Output: Urine 900 Other: Voiding Method Urinal Urinal Urinal Diaper Diaper Diaper # Voids 2 - Exam Physical Exam: Revealed a 76-year-old white male in no distress. HEENT:[Neck is supple.] [No neck masses.] [No thyromegaly.] [No JVD.] Chest: [Diminished breath sounds at the bases, no crackles, no rhonchi, no wheezes.] Cardiac Exam: [Normal S1 and S2, no S3 gallop, no murmur. Patient remains in atrial flutter, but rate seems to be better controlled.] Abdomen: [Soft, nontender, no megaly, no rebound, no guarding, normal bowel sounds.] Extremities: [No clubbing, 1+ bipedal edema, no cyanosis.] Neurological Exam: [No focal neurologic deficit.] - Labs CBC & Chem 7: 03/31/17 05:14 03/30/17 11:30 Labs: Abnormal Lab Results - Last 24 Hours (Table) 03/30/17 03/30/17 03/30/17 Range/Units 11:21 11:30 16:38 RBC (4.30-5.90) m/uL Hgb (13.0-17.5) gm/dL Hct (39.0-53.0) % Plt Count (150-450) k/uL Neutrophils # (Manual) (1.3-7.7) k/uL Lymphocytes # (Manual) (1.0-4.8) k/uL Chloride 110 H (98-107) mmol/L BUN 21 H (9-20) mg/dL Glucose 144 H (74-99) mg/dL POC Glucose (mg/dL) 154 H 140 H (75-99) mg/dL Total Protein 6.0 L (6.3-8.2) g/dL Albumin 3.2 L (3.5-5.0) g/dL 03/30/17 03/31/17 03/31/17 Range/Units 20:31 05:14 05:52 RBC 2.27 L (4.30-5.90) m/uL Hgb 7.4 L (13.0-17.5) gm/dL Hct 22.2 L (39.0-53.0) % Plt Count 34 L* D (150-450) k/uL Neutrophils # (Manual) 8.4 H (1.3-7.7) k/uL Lymphocytes # (Manual) 0.4 L (1.0-4.8) k/uL Chloride (98-107) mmol/L BUN (9-20) mg/dL Glucose (74-99) mg/dL POC Glucose (mg/dL) 160 H 114 H (75-99) mg/dL Total Protein (6.3-8.2) g/dL Albumin (3.5-5.0) g/dL Assessment and Plan Plan: 1 neutropenic sepsis. The patient is afebrile however he has very source of infection at these to be considered including the lungs, esophagitis and no other pustular lesions in the suprapubic and inguinal area which could be potentially staphylococcal or fungal. The wound cultures returned item clerk to be positive for enterococcus and MRSA. The patient remains on a combination of cefepime, vancomycin and micafungin. 2 limited stage small cell lung cancer status post chemoradiation therapy. The patient has received one session of systemic chemotherapy with carboplatinum and CARGO MATE-16 and 10 sessions of radiation therapy 3 esophagitis/mucositis secondary to radiation therapy with secondary difficulty in swallowing. Rule out candidal esophagitis 4 pancytopenia secondary to chemotherapy. . resolving, and seems to be improving over the last couple of days. 5 Atrial flutter , being managed by cardiology on the case. rate seems to be better controlled today. 6 CHF with an ejection fraction of 35% 7 coronary artery disease with multivessel involvement and the patient is status post carotid bypass surgery 8 history of AICD placement 9 dysphagia, currently nothing by mouth 10 acute kidney injury, improved in the creatinine normalized 11 peripheral vascular disease with previous vascular intervention of the left lower extremity 12 prostate cancer status post prostatectomy 13 severe peripheral neuropathy 14 depression/anxiety 15 coronary artery bypass surgery, history of 16 acute respiratory failure resolved, patient required intubation and mechanical ventilation for a few days. Resolved 17 hyperchloremic hypernatremia improved Recommendation: Continue present treatment plan and supportive care measures, possible discharge planning rehab facility in the next 24-48 hours. Time with Patient: Less than 30
[2017-03-31 11:53] LABS: Glucose,Whole Blood 162 mg/dL (75-99)
[2017-03-31] MEDS: FILGRASTIM-SNDZ 480 MCG/0.8 ML SYRINGE SQ SCH (12:35)
--- NOTE | 2017-03-31 14:27 | PN ---
Patient with acute elevation of heart rate today. Actually had a run of it being in the 120 range. He is still on Cardizem at 7.5 and was turned up to 10 today. Other than that he is feeling better with less shortness of breath. I had a long talk with him and he wants to be a complete code, complete resuscitation. He does not want to be on any chemo or radiation. He is looking forward to physical therapy and transition care in [place]. At this time, his review of systems: CARDIOPULMONARY: No shortness of breath, no chest pain, no orthopnea, no paroxysmal nocturnal dyspnea. GI: No hematemesis, hematochezia. : Good urination. NEUROMUSCULAR: Weak legs. INTEGUMENTARY: Healing lesions on the abdomen. Medications at this time 1. P.r.n. aspirin. 2. Nystatin oral solution 3 times a day 10 mg for swallowing. 3. Albuterol updrafts up to 4 times a day. 4. Lipitor 80. 5. Symbicort 1 puff daily. 6. Still on IV antibiotics of cefepime. 7. He is on 10 mL per hour of 125 Cardizem IV. 8. Ferrous sulfate once a day. 9. ( ) 480 subcutaneous daily. 10. Neurontin 600 q.i.d. 11. Haldol 2 mg p.r.n. 12. [place] 5/325 every 4 hours p.r.n. 13. Hydrocortisone cream to topical area of irritation. 14. Insulin to scale. 15. Ativan p.r.n. 16. Reglan p.r.n. 17. Lopressor 25 t.i.d. 18. Micafungin 100 mg daily. 19. Protonix 40 mg IV push q.6. 20. Spironolactone 25 daily. 21. Vancomycin 1,500 mg q.24. 22. Vitamin D. Physical examination at this time: His vital signs had blood pressure of 126/57. His heart rate went up to 110 and dropped back down to 86. Temperature is 97.7. He is alert, well oriented to person, place, and thing for psych. A little bit depressed because he is not going to the alf tomorrow. EYES: Pupils are equal, round, reactive to accommodation. ENT: Showed tympanic membranes and pharynx to be negative. NECK: Supple. Midline trachea. CHEST: Essentially clear to auscultation. HEART: Irregular irregular rhythm. ABDOMEN: Soft, nontender, with no organomegaly. Inguinal lesions have healed. Lower has good palpable pulses. He is a little unsteady on his feet as far as neurologically gross. Cranial nerve II through XII. PSYCHIATRIC: Well-oriented to person, place, and thing. He is a little depressed in present state. ASSESSMENT: 1. Leukopenia, anemia, thrombocytopenia secondary to radiation and chemotherapy. 2. Wound culture positive for methicillin resistance staph on present antibiotics. 3. Recurrent anemia and involving replacement with blood. 4. Atrial fibrillation/flutter with early controlled rate now back to normal since increased it to 10. 5. Renal failure secondary to hypovolemia, hypotension. 6. Elevated liver functions tests secondary metastatic disease. 7. Dysphagia secondary to esophagitis. 8. Chronic renal failure type 2. 9. Paroxysmal atrial fibrillation. 10. Hyperlipidemia. 11. Hypertension. 12. Congestive heart failure with ischemic cardiomyopathy, status post ICD placement. Ejection fraction 35. 13. Coronary artery disease with graft and stent placement. 14. History of prostate cancer, post prostatectomy. 15. History of gastroesophageal reflux. 16. Peripheral neuropathy. 17. Osteoarthritis. 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 19. Resolving anemia from hemoptysis. PLAN: Antibiotics are to be addressed by Dr. Gomez, Dr. Win, following Dr. Salcido. I called cardiology back in to help with atrial fibrillation to make a decision on what direction to go into. He will be going to a alf. He is a FULL CODE at this point. He does not want any further chemotherapy or radiation. He did reiterate to me today. His prognosis long-term is poor.
[2017-03-31 16:59] LABS: Glucose,Whole Blood 141 mg/dL (75-99)
[2017-03-31] MEDS: MICAFUNGIN 100 MG in SODIUM CHLORIDE 0.9% 100 ML IVPB SCH (18:02)
[2017-03-31 20:43] LABS: Glucose,Whole Blood 112 mg/dL (75-99)
[2017-04-01] MEDS: HYDROcodone/APAP 5-325MG 1 EACH TAB PO PRN ×3 (04:31→17:53)
[2017-04-01 05:32] LABS: Glucose,Whole Blood 111 mg/dL (75-99)
[2017-04-01] MEDS: DILTIAZEM 125 MG in SODIUM CHLORIDE 0.9% 100 ML IV SCH (05:37)
[2017-04-01] MEDS: INSULIN LISPRO (humaLOG) 300 UNIT/3 ML VIAL SQ SCH ×4 (06:08→21:08)
[2017-04-01] MEDS: VANCOMYCIN 1,500 MG in SODIUM CHLORIDE 0.9% 250 ML IVPB SCH (06:08)
[2017-04-01] MEDS: PANTOPRAZOLE 40 MG/10 ML VIAL IV SCH ×2 (06:12→17:27)
[2017-04-01 07:38] LABS: Anisocytosis Slight; CH 32.2; HCT 24.6 % (39.0-53.0); HGB 8.4 gm/dL (13.0-17.5); MCH 32.5 pg (25.0-35.0); MCHC 34.1 g/dL (31.0-37.0); MCV 95.4 fL (80.0-100.0); Mean Platelet Volume 10.2; RBC 2.58 m/uL (4.30-5.90); RDW 16.3 % (11.5-15.5)
[2017-04-01 07:49] LABS: Anion Gap 7 mmol/L; Blood Urea Nitrogen 21 mg/dL (9-20); Calcium 9.1 mg/dL (8.4-10.2); Carbon Dioxide 27 mmol/L (22-30); Chloride 108 mmol/L (98-107); Glucose 98 mg/dL (74-99); Non-African American GFR(MDRD) >60 (>60 ml/min/1.73 sqM); Potassium 4.5 mmol/L (3.5-5.1); Sodium 142 mmol/L (137-145)
[2017-04-01] MEDS: CEFEPIME 2 GM in SODIUM CHLORIDE 0.9% 50 ML IVPB SCH (07:51)
[2017-04-01] MEDS: MAG HYDROX/AL HYDROX/SIMETH 30 ML, LIDOCAINE VISCOUS 30 ML, diphenhydrAMINE ELIXIR 75 M... PO SCH ×12 (07:51→21:28)
[2017-04-01] MEDS: SPIRONOLACTONE 25 MG TAB PO SCH (07:52)
[2017-04-01] MEDS: CHOLECALCIFEROL 1,000 UNIT TAB PO SCH (07:52)
[2017-04-01] MEDS: VITAMIN E (DL,TOCOPHERYL ACET) 400 UNIT CAP PO SCH (07:52)
[2017-04-01] MEDS: PYRIDOXINE 50 MG TAB PO SCH (07:52)
[2017-04-01] MEDS: DOCUSATE ORAL SOLN 100 MG/10 ML CUP PO SCH ×3 (07:52→21:25)
[2017-04-01] MEDS: FERROUS SULFATE 325 MG TAB PO SCH (07:53)
[2017-04-01] MEDS: MULTIVITAMINS, THERA 1 EACH TAB PO SCH (07:53)
[2017-04-01] MEDS: OXYBUTYNIN CHLORIDE 5 MG TAB PO SCH ×4 (07:53→21:28)
[2017-04-01] MEDS: GABAPENTIN 300 MG CAP PO SCH ×4 (07:53→21:25)
[2017-04-01] MEDS: ATORVASTATIN 80 MG TAB PO SCH (07:53)
[2017-04-01] MEDS: METOPROLOL TARTRATE 25 MG TAB PO SCH (07:54)
[2017-04-01] MEDS: HYDROCORTISONE 1% CREAM 454 GM JAR TOPICAL SCH ×2 (07:54→21:27)
[2017-04-01] MEDS: ZINC OXIDE 20% OINT 28.4 GM TUBE TOPICAL SCH ×3 (07:54→21:27)
[2017-04-01] MEDS: SYMBICORT 160-4.5 MCG INHALER INHALATION SCH ×2 (07:55→07:56)
[2017-04-01] MEDS: IPRATROPIUM-ALBUTEROL 3 ML NEB INHALATION SCH ×4 (07:55→20:20)
[2017-04-01 08:48] LABS: ALT 41 U/L (21-72); AST 23 U/L (17-59); Alkaline Phosphatase 109 U/L (38-126); Total Protein 5.6 g/dL (6.3-8.2)
[2017-04-01 11:20] LABS: Band Neutrophils % 1.5 %; Metamyelocytes % 1.5 %; Myelocytes % 1.5 %; Nucleated Red Blood Cells 1 /100 WBC (0-0); Total Cells Counted 200
[2017-04-01 11:22] LABS: WBC 14.6 k/uL (3.8-10.6)
[2017-04-01 11:23] LABS: Polychromasia Present
--- NOTE | 2017-04-01 11:25 | P.PN ---
Subjective Principal diagnosis: Acute neutropenic sepsis and respiratory failure This is a 76-year-old gentleman who was initially admitted to the hospital with acute sepsis and associated respiratory failure. He has a known history of coronary artery disease with prior bypass surgery, ischemic cardiomyopathy, chronic persistent A. fib/flutter, PAD with prior vascular stenting, small cell lung CA. Cardiology has been following the patient because of his atrial flutter. Patient continues to be in an atrial flutter heart rate today is maintaining in the 80s on Cardizem drip at 10. Patient was seen and examined this morning, sitting up in the chair. Complaining of right elbow pain and swelling. Denies any chest discomfort or fluttering in the chest. Breathing is improving, Mild cough this morning, nonproductive. Blood pressure 110/60. We will attempt to increase his beta chacorta dose and discontinue the IV Cardizem. Objective - Vital Signs Vital signs: Vital Signs Temp 98 F 04/01/17 08:00 Pulse 100 04/01/17 08:08 Resp 18 04/01/17 08:00 BP 106/59 04/01/17 08:00 Pulse Ox 96 04/01/17 08:00 Intake & Output 03/31/17 04/01/17 04/01/17 18:59 06:59 18:59 Intake Total 2378.417 700 Output Total 200 1200 Balance 2178.417 -500 Intake: IV 225 600 Dextrose 5% in Water 1, 225 600 000 ml @ 75 mls/hr IV . [id number] ERNESTO Rx#:[id number] Intake, IV Titration 403.417 50 Amount Cefepime 2 gm In Sodium 50 50 Chloride 0.9% 50 ml @ 100 mls/hr IVPB Q8H ERNESTO Rx#: [id number] Diltiazem 125 mg In 103.417 Sodium Chloride 0.9% 100 ml @ 10 MG/HR 10 mls/hr IV .[id number] ERNESTO Rx#: [id number] Vancomycin 1,500 mg In 250 Sodium Chloride 0.9% 250 ml @ 125 mls/hr IVPB Q16H ERNESTO Rx#:[id number] Oral 1440 50 Blood Product 310 Rc As-3 Unit 310 [id number] Output: Urine 200 1200 Other: Voiding Method Urinal Bedside Commode Bedside Commode Diaper Urinal Urinal Diaper Diaper # Voids 1 2 # Bowel Movements 0 - Exam PHYSICAL EXAMINATION: HEENT: Head is atraumatic, normocephalic. Pupils equal, round. Neck is supple. There is no elevated jugular venous pressure. HEART EXAMINATION: S1 and S2 irregularly irregular CHEST EXAMINATION: Lungs reveal diminished breath sounds bilaterally with fine expiratory wheezes. ABDOMEN: Soft, nontender. Bowel sounds are heard. No organomegaly noted. EXTREMITIES: 2+ peripheral pulses with 1+ evidence of peripheral edema and no calf tenderness noted. Positive right elbow tenderness and mild swelling NEUROLOGIC patient is awake, alert and oriented -3. . - Labs CBC & Chem 7: 04/01/17 07:18 04/01/17 07:18 Labs: Abnormal Lab Results - Last 24 Hours (Table) 03/31/17 03/31/17 03/31/17 Range/Units 11:25 11:52 16:53 WBC (3.8-10.6) k/uL RBC (4.30-5.90) m/uL Hgb (13.0-17.5) gm/dL Hct (39.0-53.0) % RDW (11.5-15.5) % Plt Count (150-450) k/uL Chloride (98-107) mmol/L BUN (9-20) mg/dL POC Glucose (mg/dL) 162 H 141 H (75-99) mg/dL Total Protein (6.3-8.2) g/dL Albumin (3.5-5.0) g/dL Crossmatch See Detail 03/31/17 04/01/17 04/01/17 Range/Units 20:41 05:31 07:18 WBC 14.7 H (3.8-10.6) k/uL RBC 2.58 L (4.30-5.90) m/uL Hgb 8.4 L (13.0-17.5) gm/dL Hct 24.6 L (39.0-53.0) % RDW 16.3 H (11.5-15.5) % Plt Count 46 L* (150-450) k/uL Chloride (98-107) mmol/L BUN (9-20) mg/dL POC Glucose (mg/dL) 112 H 111 H (75-99) mg/dL Total Protein (6.3-8.2) g/dL Albumin (3.5-5.0) g/dL Crossmatch 04/01/17 Range/Units 07:18 WBC (3.8-10.6) k/uL RBC (4.30-5.90) m/uL Hgb (13.0-17.5) gm/dL Hct (39.0-53.0) % RDW (11.5-15.5) % Plt Count (150-450) k/uL Chloride 108 H (98-107) mmol/L BUN 21 H (9-20) mg/dL POC Glucose (mg/dL) (75-99) mg/dL Total Protein 5.6 L (6.3-8.2) g/dL Albumin 2.9 L (3.5-5.0) g/dL Crossmatch Assessment and Plan (1) Neutropenic sepsis Status: Acute (2) Small cell lung cancer Status: Acute (3) Atrial flutter, chronic Status: Acute (4) Systolic CHF, acute on chronic Status: Acute (5) Ischemic cardiomyopathy Status: Acute (6) AICD (automatic cardioverter/defibrillator) present Status: Acute (7) Acute renal injury Status: Acute (8) PVD (peripheral vascular disease) Status: Acute (9) Hx of CABG Status: Acute (10) HTN (hypertension) Status: Acute (11) Hyperlipemia Status: Acute Plan: Cardiology's perspective, we will increase his dose of beta chacorta and discontinue the IV Cardizem drip. Patient is currently not on Eliquis because of thrombocytopenia and anemia. Optimize heart rate control monitor blood pressure closely. DNP note has been reviewed, I agree with a documented findings and plan of care. Patient was seen and examined.
[2017-04-01] MEDS: DEXTROSE 5% IN WATER 1,000 ML IV SCH (11:27)
[2017-04-01 11:55] LABS: Glucose,Whole Blood 116 mg/dL (75-99)
--- NOTE | 2017-04-01 12:59 | US ---
EXAMINATION TYPE: US venous doppler duplex UE RT DATE OF EXAM: 04/01/2017 COMPARISON: NONE CLINICAL HISTORY: pain. And right arm swelling SIDE PERFORMED: Right Grayscale, color Doppler spectral Doppler imaging performed of the deep veins of the right upper extr emity Right Arm: Negative for DVT The radial veins, ulnar veins, cephalic vein, basilic vein are compressible and patent, normal color flow. Brachial vein, visualized portions of the internal jugular and subclavian veins are also patent . IMPRESSION: No evident deep venous thrombosis in the right upper extremity as described.
--- NOTE | 2017-04-01 15:31 | PN ---
This is a 76-year-old gentleman that I initially diagnosed with small cell lung cancer. He was admitted a number of days back with episode of neutropenic sepsis. The patient is finally doing a bit better. His wound cultures did turn down worker to be positive for enterococcus and MRSA. The patient remained on antibiotics in the form of cefepime, vancomycin and micafungin. In addition, the patient has a history of small cell lung cancer as mentioned, esophagitis/mucositis, pancytopenia, atrial flutter, congestive heart failure, CAD, AICD placement and an episode of severe hemoptysis, which initially ( ) with a diagnosis of lung cancer. Currently doing reasonably well. Was able to walk the hallway today. Refuses any additional chemotherapy at this time. Currently, temperature is 98.8, heart rate 100, respiratory rate 18, blood pressure 106/59, room air saturation 96%. Appears in no acute distress. Sitting up in the chair. HEENT examination is grossly unremarkable. Mucous membranes are moist. No oral lesions. Neck is supple. Full range of motion. No adenopathy or thyromegaly. Cardiovascular examination reveals regular rhythm and rate. S1, S2 normal. No S3, S4. Lungs reveal relatively clear breath sounds. A few scattered rhonchi. Abdomen is soft. Extremities are intact. Labs are reviewed from today. White count 14.7, hemoglobin 8.4, hematocrit 24.6, platelet count 46,000. Sodium and potassium normal. Chloride is 108, CO2 of 27. BUN and creatinine were 21 and 1.01. Microbiology shows wound cultures be positive for methicillin-resistant staph aureus and Enterococcus faecalis. Gram stain was also positive for MRSA. No recent chest x-rays to review. Medications are reviewed. ASSESSMENT: 1. Neutropenic sepsis, with wound cultures positive for methicillin-resistant Staphylococcus aureus and enterococcus and sputum cultures positive for methicillin-resistant Staphylococcus aureus. 2. Small cell lung cancer, status post chemoradiation. 3. Acute respiratory failure requiring mechanical ventilation. 4. Esophagitis/mucositis. 5. Pancytopenia. 6. Atrial flutter. 7. Congestive heart failure with an ejection fraction of 35%. 8. CABG for multivessel coronary artery disease. 9. History of AICD placement. 10. Acute kidney injury. 11. Peripheral vascular occlusive disease. 12. Prostate cancer, status post prostatectomy. 13. Severe peripheral neuropathy. 14. Depression/anxiety. PLAN: Medications are reviewed. The patient was able to walk today. Hopeful discharge to a assisted facility or rehab facility in the next 24 hours. Will continue to follow.
--- NOTE | 2017-04-01 15:35 | P.PN ---
Subjective Patient is a 76-year-old male, patient of Dr. Mulligan in the outpatient setting, with medical history significant for paroxysmal atrial fibrillation, GERD, hyperlipidemia, hypertension, coronary artery disease status post coronary artery bypass grafting in 2014 followed by stenting to the left SFA in August 2015, myocardial infarction, ischemic cardiomyopathy status post placement of internal cardiac defibrillator, prostate cancer status post prostatectomy in 1998, peripheral vascular disease status post stent placement to left lower extremity, osteoarthritis, severe peripheral neuropathy, and remote nicotine dependence. 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 Per chart and daughter, patient had been experiencing trouble with swallowing and increased shortness of breath over the last couple of days prior to admission in addition to having generalized weakness, fatigue, and shakiness. Patient originally presented to [facility] where he underwent a CTA of the chest with evidence of cardiomegaly, right upper lung nodule and right hilar invasive mass with thoracic adenopathy; and moderate to severe thickening of the mid esophagus. Patient was transferred to [facility]. In the emergency department, patient was found to have evidence of febrile neutropenia and pancytopenia with evidence of acute renal failure. Patient was admitted to the intensive care unit and consults were requested for Dr. Figueroa for oncology service , Dr. Courtney for pulmonary service, cardiology service, and Dr. Gomez for infectious disease service. While in the intensive care unit, patient's respiratory status declined requiring ventilatory support. Patient did have positive wound cultures for MRSA for blister type wounds. Patient was extubated on 03/26/2017 and transferred out of the intensive care unit on 2016 to selective care unit. Patient is evaluated on selective care unit where he is currently working with speech therapy. Patient states he is very frustrated because he has a difficult time swallowing his food and pronouncing words. Patient states he feels anxious. Patient is also complaining of right lateral elbow pain radiating down his right forearm. Patient states it feels like somebody punched him in the arm. Patient denies chills, fevers, nausea, vomiting, increased shortness of breath, chest pain, or abdominal pain. Patient remains in atrial flutter with controlled ventricular rate, patient continues on IV Cardizem at 10 mL an hour. Patient is passing flatus with last bowel movement on 2016. T-max the last 24 hours 100.6 at 8 PM last night. WBC 14.6. Hemoglobin stable at 8.4. Platelets increased to 46. Patient remains on antibiotics in the form of micafungin and vancomycin. Objective - Vital Signs Vital signs: Vital Signs Temp 98 F 04/01/17 08:00 Pulse 96 04/01/17 12:01 Resp 18 04/01/17 11:55 BP 102/47 04/01/17 11:55 Pulse Ox 95 04/01/17 11:55 Intake & Output 03/31/17 04/01/17 04/01/17 18:59 06:59 18:59 Intake Total 2378.417 700 0 Output Total 200 1200 Balance 2178.417 -500 0 Weight 90 kg Intake: IV 225 600 Dextrose 5% in Water 1, 225 600 000 ml @ 75 mls/hr IV . [id number] ERNESTO Rx#:[id number] Intake, IV Titration 403.417 50 Amount Cefepime 2 gm In Sodium 50 50 Chloride 0.9% 50 ml @ 100 mls/hr IVPB Q8H ERNESTO Rx#: [id number] Diltiazem 125 mg In 103.417 Sodium Chloride 0.9% 100 ml @ 10 MG/HR 10 mls/hr IV .[id number] ERNESTO Rx#: [id number] Vancomycin 1,500 mg In 250 Sodium Chloride 0.9% 250 ml @ 125 mls/hr IVPB Q16H ERNESTO Rx#:[id number] Oral 1440 50 0 Blood Product 310 Rc As-3 Unit 310 [id number] Output: Urine 200 1200 Other: Voiding Method Urinal Bedside Commode Bedside Commode Diaper Urinal Urinal Diaper Diaper # Voids 1 2 # Bowel Movements 0 - Exam GENERAL: Pt is awake and alert, appears in no acute distress. HEAD: Atraumatic, normocephalic. EYES: Pupils equal, round, and reactive to light, sclera anicteric, conjunctiva are normal. ENT: Moist mucous membranes. NECK: Supple without lymphadenopathy or JVD. Trachea midline. LUNGS: Breath sounds diminished with throughout lung kohler. HEART: Heart S1, S2, no S3 or S4. Regular irregular. No murmurs, rubs or gallops. ABDOMEN: Soft, nondistended, normoactive bowel sounds. No guarding, no rebound. No masses or organomegaly appreciated. EXTREMITIES: 2+ peripheral pulses. 1+ edema to bilateral lower extremities. Right lateral elbow tenderness with erythema and mild swelling. NEUROLOGICAL: Pt alert and awake, speech coherent. Patient able to carry on forward conversation. SKIN: Warm, dry. - Labs CBC & Chem 7: 04/01/17 07:18 04/01/17 07:18 Labs: Abnormal Lab Results - Last 24 Hours (Table) 03/31/17 03/31/17 03/31/17 Range/Units 11:25 16:53 20:41 WBC (3.8-10.6) k/uL RBC (4.30-5.90) m/uL Hgb (13.0-17.5) gm/dL Hct (39.0-53.0) % RDW (11.5-15.5) % Plt Count (150-450) k/uL Neutrophils # (Manual) (1.3-7.7) k/uL Lymphocytes # (Manual) (1.0-4.8) k/uL Monocytes # (Manual) (0-1.0) k/uL Nucleated RBCs (0-0) /100 WBC Chloride (98-107) mmol/L BUN (9-20) mg/dL POC Glucose (mg/dL) 141 H 112 H (75-99) mg/dL Total Protein (6.3-8.2) g/dL Albumin (3.5-5.0) g/dL Crossmatch See Detail 04/01/17 04/01/17 04/01/17 Range/Units 05:31 07:18 07:18 WBC 14.6 H (3.8-10.6) k/uL RBC 2.58 L (4.30-5.90) m/uL Hgb 8.4 L (13.0-17.5) gm/dL Hct 24.6 L (39.0-53.0) % RDW 16.3 H (11.5-15.5) % Plt Count 46 L* (150-450) k/uL Neutrophils # (Manual) 12.3 H (1.3-7.7) k/uL Lymphocytes # (Manual) 0.5 L (1.0-4.8) k/uL Monocytes # (Manual) 1.4 H (0-1.0) k/uL Nucleated RBCs 1 H (0-0) /100 WBC Chloride 108 H (98-107) mmol/L BUN 21 H (9-20) mg/dL POC Glucose (mg/dL) 111 H (75-99) mg/dL Total Protein 5.6 L (6.3-8.2) g/dL Albumin 2.9 L (3.5-5.0) g/dL Crossmatch 04/01/17 Range/Units 11:37 WBC (3.8-10.6) k/uL RBC (4.30-5.90) m/uL Hgb (13.0-17.5) gm/dL Hct (39.0-53.0) % RDW (11.5-15.5) % Plt Count (150-450) k/uL Neutrophils # (Manual) (1.3-7.7) k/uL Lymphocytes # (Manual) (1.0-4.8) k/uL Monocytes # (Manual) (0-1.0) k/uL Nucleated RBCs (0-0) /100 WBC Chloride (98-107) mmol/L BUN (9-20) mg/dL POC Glucose (mg/dL) 116 H (75-99) mg/dL Total Protein (6.3-8.2) g/dL Albumin (3.5-5.0) g/dL Crossmatch Assessment and Plan Plan: Impression: 1. Neutropenic sepsis suspect secondary to recent chemotherapy and radiation for limited stage small cell lung carcinoma post chemoradiation therapy. Wound cultures positive for MRSA. Patient has received one session of systemic chemotherapy with carboplatinum and [employer]-16 and 10 sessions of radiation therapy. 2. Pancytopenia, present on admission, suspect secondary to anti-neoplastic chemotherapy. WBC currently 14.6. 3. Atrial flutter, ventricular response controlled. Per oncology, patient may resume anticoagulation once platelet count is greater than 50. Cardiology to address IV Cardizem. 4. Acute renal failure, present on admission, suspect secondary to hypovolemia and hypoperfusion, secondary to dehydration, resolved. 5. Elevated blood sugars on admission. 6. Elevated alkaline phosphatase, present on admission. 7. Dysphagia, present on admission, suspect secondary to esophagitis and mucositis secondary to recent chemotherapy and radiation with possibility of Traci esophagitis. Will obtain ENT consult for possible vocal cord dysfunction. 8. History of chronic renal failure, stage III. 9. Paroxysmal atrial fibrillation maintained on Eliquis in the outpatient setting. 10. Hyperlipidemia. 11. Hypertension. 12. Chronic systolic heart failure, ischemic cardiomyopathy status post AICD placement. Ejection fraction 35%. 13. Coronary artery disease status post coronary artery bypass grafting followed by stenting. 14. History of prostate cancer status post prostatectomy. 15. History of GERD. 16. Severe peripheral vascular disease status post stenting to right lower extremity. 17. Severe peripheral neuropathy. 18. Osteoarthritis. 19. History of anxiety and depression, stable. 20. History of nicotine dependence. 21. Acute respiratory failure secondary to above mentioned comorbidities, currently extubated. 22. Anemia, chemo induced. 23. Right elbow pain associated with erythema and swelling. Plan: Continue to monitor patient. Continue IV antibiotics per infectious disease recommendations. Continue current medications. Continue pulmonary toileting. Will obtain ultrasound of venous and arterial circulation to rule out blood clot. Check uric acid for possible gout. Consult ENT service for possible vocal cord dysfunction. Continue physical therapy. Continue to follow with consultants. Continue GI and DVT prophylaxis. Repeat CBC, BMP in a.m. Plans are currently in progress to discharge patient to extended care facility when medically cleared. The above impression and plan have been discussed and directed by Dr. Mulligan. Carmel LACEY acting as scribe for Isaak.
[2017-04-01] MEDS: METOPROLOL TARTRATE 50 MG TAB PO SCH ×2 (16:13→21:27)
[2017-04-01 17:13] LABS: Glucose,Whole Blood 150 mg/dL (75-99)
[2017-04-01] MEDS: MICAFUNGIN 100 MG in SODIUM CHLORIDE 0.9% 100 ML IVPB SCH (17:27)
[2017-04-01] MEDS ORDERED: HYDROmorphone 2 MG/ML 1 ML SYRINGE IVP PRN ×2 (19:53)
[2017-04-01] MEDS ORDERED: HYDROmorphone 1 MG/ML 1 ML SYRINGE IVP PRN ×2 (19:53)
--- NOTE | 2017-04-01 20:31 | P.GSCN ---
History of Present Illness Consult date: 04/01/17 Reason for Consult: Vocal changes Requesting physician: Husam Mulligan History of present illness: This is a 76-year-old white male with multiple medical problems and recent onset of hoarseness. The patient in the past was intubated for ventilator management. He seemed to be hoarse over the last several days and the exact date of hoarseness is not known. He is difficult to understand his voice is very weak and is a poor historian. I understand that the patient has a previously diagnosed small cell lung carcinoma and was undergoing chemoradiation therapy. He had a CAT scan demonstrating a right upper lobe and right hilar mass with thoracic adenopathy and thickening of the esophagus. I' ve been asked to consult regarding this patient's hoarseness. The hoarseness is described as a weak breathy voice with coarseness to the voice. He denies any aspiration or dysphagia. Review of Systems - Constitutional Reports anorexia - EENT Ears, nose, mouth and throat: Denies bleeding gums - Cardiovascular Reports decreased exercise tolerance, Denies claudication - Respiratory Denies hemoptysis - Gastrointestinal Denies belching - Genitourinary Denies discharge - Musculoskeletal Reports atrophy, Denies low back pain - Integumentary Reports dryness - Neurological Denies balance difficulties - Psychiatric Denies anxiety attacks - Endocrine Reports fatigue - Allergic/Immunologic Denies allergic rhinitis Past Medical History Past Medical History: Atrial Fibrillation, Cancer, Heart Failure, GERD/Reflux, Hyperlipidemia, Hypertension, Myocardial Infarction (HI), Prostate Disorder, Renal Disease, Vascular Disorder Additional Past Medical History / Comment(s): Small cell lung cancer/limited stage currently on chemo radiation therapy, recent hospitalization for hemoptysis, coronary artery disease appears bypass surgery, congestion heart failure with ejection fraction of 30-35%, new onset atrial fibrillation, hyperlipidemia, hypertension, BPH, peripheral vascular disease with previous vascular intervention of the lower extremities, prostate cancer with previous surgery, peripheral neuropathy, Last Myocardial Infarction Date:: 05/27/15 History of Any Multi-Drug Resistant Organisms: MRSA Year Discovered:: 03/21/17 MDRO Source:: Groin Past Surgical History: Coronary Bypass/CABG, Heart Catheterization, Joint Replacement, Orthopedic Surgery, Prostate Surgery, Tonsillectomy Additional Past Surgical History / Comment(s): 02/19/17 BRONCHOSCOPY WITH BAL/ BRUSHINGS/BX, 01/23/17 ICD, 05/26/15 4 VESSEL CABG, AORTAGRAM WITH BILATERAL RUNOFFS, PTBA WITH STENT L SFA, L TOTAL KNEE ARTHROPLASTY, L THUMB SX, 1998 PROSTATECTOMY. Past Anesthesia/Blood Transfusion Reactions: No Reported Reaction Past Psychological History: Anxiety, Depression Additional Psychological History / Comment(s): PT IS DEPRESSED OVER HIS MEDICAL CONDITION. PT STAYS WITH HIS ROVERTO DURING DAYS OF CANCER TREATMENT AND GOES HOME IF NO TREATMENT PLANNED. HE HAS HOME CARE. HE USES A WALKER IF GOING ANY DISTANCE. PT DRIVES. 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 No animal exposures Smoking Status: Former smoker Past Alcohol Use History: Occasional Additional Past Alcohol Use History / Comment(s): STARTED SMOKING AT AGE 15 QUIT SMOKING 2014 SMOKED 1 -1 1/2PPD Past Drug Use History: None Reported - Past Family History Father History Unknown: Yes Family Medical History: No Reported History Additional Family Medical History / Comment(s): FATHER YOUNG IN A BOATING ACCIDENT. Mother Family Medical History: No Reported History Additional Family Medical History / Comment(s): young IN A MVA. Medications and Allergies Home Medications Medication Instructions Recorded Confirmed Type Omeprazole [PriLOSEC] 20 mg PO BID 05/26/15 03/18/17 History Atorvastatin [Lipitor] 80 mg PO DAILY 08/15/15 03/18/17 History Ferrous Sulfate [Iron (65 MG 325 mg PO DAILY 12/19/15 03/18/17 History Elemental)] Oxybutynin Chloride [Ditropan] 5 mg PO QID 12/19/15 03/18/17 History Docusate [Colace] 100 mg PO TID 01/01/16 03/18/17 History Pyridoxine [Vitamin B-6] 100 mg PO DAILY 08/26/16 03/18/17 History Lisinopril [Zestril] 2.5 mg PO DAILY 01/23/17 03/18/17 History Metoprolol Tartrate [Lopressor] 50 mg PO TID 02/17/17 03/18/17 History Multivitamins, Thera [Multivitamin 1 tab PO DAILY 02/17/17 03/18/17 History (formulary)] Spironolactone [Aldactone] 25 mg PO DAILY@0800 02/17/17 03/18/17 History Cholecalciferol [Vitamin D3] 2,000 unit PO DAILY 03/12/17 03/18/17 History Fluconazole [Diflucan] 100 mg PO DAILY 03/12/17 03/18/17 History Fluticasone/Vilanterol [Breo 1 puff INHALATION RT-DAILY 03/12/17 03/18/17 History Ellipta 200-25 Mcg INH] Ipratropium/Albuterol Sulfate 1 puff INHALATION RT-QID 03/12/17 03/18/17 History [Combivent Respimat Inhaler] Ondansetron [Zofran] 4 mg PO Q12HR PRN 03/12/17 03/18/17 History Polyethylene Glycol 3350 [Miralax] 17 gm PO DAILY 03/12/17 03/18/17 History Vitamin E 400 unit PO DAILY 03/12/17 03/18/17 History Apixaban [Eliquis] 2.5 mg PO BID 03/18/17 03/18/17 History Gabapentin 600 mg PO QID 03/18/17 03/18/17 History Allergies Allergy/AdvReac Type Severity Reaction Status Date / Time No Known Allergies Allergy Verified 03/18/17 22:34 Surgical - Exam Osteopathic Statement: *. No significant issues noted on an osteopathic structural exam other than those noted in the History and Physical/Consult. Vital Signs Temp Pulse Resp BP Pulse Ox 101.3 F H 140 H 24 127/58 92 L 03/18/17 20:46 03/18/17 20:46 03/18/17 20:46 03/18/17 20:46 03/18/17 20:46 - General cachectic, chronically ill - Eyes PERRL, normal ocular movement - ENT Patient is a breathy voice and is course normal pinna, normal nares, normal mucosa, no congestion, poor fpc - Neck no diffuse goiter - Integumentary no rash, no growths - Neurologic no normal coordination, no normal sensation - Musculoskeletal normal gait - Psychiatric oriented to time, oriented to person Results - Labs 04/01/17 07:18 04/01/17 07:18 Abnormal Lab Results - Last 24 Hours (Table) 03/31/17 04/01/17 04/01/17 Range/Units 20:41 05:31 07:18 WBC 14.6 H (3.8-10.6) k/uL RBC 2.58 L (4.30-5.90) m/uL Hgb 8.4 L (13.0-17.5) gm/dL Hct 24.6 L (39.0-53.0) % RDW 16.3 H (11.5-15.5) % Plt Count 46 L* (150-450) k/uL Neutrophils # (Manual) 12.3 H (1.3-7.7) k/uL Lymphocytes # (Manual) 0.5 L (1.0-4.8) k/uL Monocytes # (Manual) 1.4 H (0-1.0) k/uL Nucleated RBCs 1 H (0-0) /100 WBC Chloride (98-107) mmol/L BUN (9-20) mg/dL POC Glucose (mg/dL) 112 H 111 H (75-99) mg/dL Total Protein (6.3-8.2) g/dL Albumin (3.5-5.0) g/dL 04/01/17 04/01/17 04/01/17 Range/Units 07:18 11:37 17:10 WBC (3.8-10.6) k/uL RBC (4.30-5.90) m/uL Hgb (13.0-17.5) gm/dL Hct (39.0-53.0) % RDW (11.5-15.5) % Plt Count (150-450) k/uL Neutrophils # (Manual) (1.3-7.7) k/uL Lymphocytes # (Manual) (1.0-4.8) k/uL Monocytes # (Manual) (0-1.0) k/uL Nucleated RBCs (0-0) /100 WBC Chloride 108 H (98-107) mmol/L BUN 21 H (9-20) mg/dL POC Glucose (mg/dL) 116 H 150 H (75-99) mg/dL Total Protein 5.6 L (6.3-8.2) g/dL Albumin 2.9 L (3.5-5.0) g/dL Diabetes panel 04/01/17 Range/Units 07:18 Sodium 142 (137-145) mmol/L Potassium 4.5 (3.5-5.1) mmol/L Chloride 108 H (98-107) mmol/L Carbon Dioxide 27 (22-30) mmol/L BUN 21 H (9-20) mg/dL Creatinine 1.01 (0.66-1.25) mg/dL Glucose 98 (74-99) mg/dL Calcium 9.1 (8.4-10.2) mg/dL AST 23 (17-59) U/L ALT 41 (21-72) U/L Alkaline Phosphatase 109 (38-126) U/L Total Protein 5.6 L (6.3-8.2) g/dL Albumin 2.9 L (3.5-5.0) g/dL Calcium panel 04/01/17 Range/Units 07:18 Calcium 9.1 (8.4-10.2) mg/dL Albumin 2.9 L (3.5-5.0) g/dL Pituitary panel 04/01/17 Range/Units 07:18 Sodium 142 (137-145) mmol/L Potassium 4.5 (3.5-5.1) mmol/L Chloride 108 H (98-107) mmol/L Carbon Dioxide 27 (22-30) mmol/L BUN 21 H (9-20) mg/dL Creatinine 1.01 (0.66-1.25) mg/dL Glucose 98 (74-99) mg/dL Calcium 9.1 (8.4-10.2) mg/dL Adrenal panel 04/01/17 Range/Units 07:18 Sodium 142 (137-145) mmol/L Potassium 4.5 (3.5-5.1) mmol/L Chloride 108 H (98-107) mmol/L Carbon Dioxide 27 (22-30) mmol/L BUN 21 H (9-20) mg/dL Creatinine 1.01 (0.66-1.25) mg/dL Glucose 98 (74-99) mg/dL Calcium 9.1 (8.4-10.2) mg/dL Total Bilirubin 1.0 (0.2-1.3) mg/dL AST 23 (17-59) U/L ALT 41 (21-72) U/L Alkaline Phosphatase 109 (38-126) U/L Total Protein 5.6 L (6.3-8.2) g/dL Albumin 2.9 L (3.5-5.0) g/dL Assessment and Plan (1) Unilateral vocal cord paralysis Status: Acute (2) Hoarseness of voice Status: Acute Plan: This patient has a 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 This is most likely cause from his small cell carcinoma of the lung. The right recurrent laryngeal nerve leaves the right vagus as it crosses the right subclavian artery and lips posteriorly under the artery then follows the right tracheal esophageal groove. Most likely this nerve has become paralyzed at that location. I doubt if this right vocal cord paralysis is reversible in light of this patient's lung cancer. The patient is a candidate for a right medialization thyroplasty. I'm confident that we are able to improve his speaking voice tremendously with this procedure. This is a procedure that can be done under local with sedation but needs to be done when he is medically stable. I've given this patient my card and advised him to see me after discharge when he is medically stable for this procedure. This procedure is approximately 1 hour long under local with sedation and will not require general anesthetic. I discussed this implant procedure with him and he would like to proceed forward at a later date when he stable. Again I've given him my card and is to follow-up with me when stable. Time with Patient: Greater than 30
--- NOTE | 2017-04-01 20:34 | P.OP ---
Date of Procedure: 04/01/17 Preoperative Diagnosis: Hoarseness Postoperative Diagnosis: Same plus right unilateral vocal cord paralysis in the lateral position complete. Procedure(s) Performed: Flexible nasopharyngeal laryngoscopy Implants: Anesthesia: none Surgeon: Chad Cota Estimated Blood Loss (ml): 0 Pathology: none sent Condition: stable Disposition: no change Indications for Procedure: Patient has a very weak and breathy voice and vocal cord function needs to be assessed Operative Findings: Patient was found to have an adenoidectomy scar and also evidence of a right vocal cord paralysis. This paralysis is complete and the vocal cord is in the lateral position. Suspect aspiration Description of Procedure: This patient was placed in a sitting position and then the NF type GP nasopharyngoscope was inserted into the right nares. We followed the floor the nose to the nasopharynx and an adenoidectomy scar was noted but there is no signs of any tumors or masses or pathology the nasopharynx. The oropharynx also had no pathology noted although the mucosa was dry. The hypopharynx demonstrates an omega-shaped epiglottis that was retroflexed posteriorly. The right vocal cord was paralyzed and in the lateral position. This paralysis was complete and only unilateral on the right side. The left vocal cord was functioning well. There is a large gap between both vocal cords upon phonation.
[2017-04-01 21:03] LABS: Glucose,Whole Blood 117 mg/dL (75-99)
[2017-04-01] MEDS ORDERED: HEPARIN SODIUM,PORCINE 5,000 UNIT/ML 1 ML VIAL SQ SCH (21:15)
[2017-04-01] MEDS ORDERED: BISACODYL 10 MG SUPP RECTAL STA (22:35)
--- NOTE | 2017-04-01 22:49 | P.PN ---
Subjective Principal diagnosis: Febrile neutropenia 76-year-old male with a known history of small cell lung carcinoma who is been undergoing chemoradiation. Presents emergency center with increasing shortness of breath increasing weakness, increasing fatigue and increasing difficulty with swallowing. He was evaluated by bronchoscopy and endobronchial tumor was noted. She related it was a limited stage small cell lung carcinoma. In counseling and started radiation therapy with concomitant carboplatinum and [employer]NAGER-16. 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 Decreasing oral intake and increasing weakness. He now presents with evidence of fever, neutropenia and significant dehydration. He is being transferred from the emergency center to the intensive care unit given his atrial fibrillation and hypotension. He has a long-standing history of coronary artery disease atrial fibrillation as well as BPH chronic renal disease and peripheral vascular disease. Is related that he does have a low ejection fraction of 30-35%. His atrial fibrillation is chronic but his rate was quite elevated earlier. With resuscitation and diltiazem drip he has improved. Was having severe pain with Dilaudid and viscous lidocaine he has had some improvement of his status. Patient has remained extubated. . Definitely feeling better. Taking in nutrients. Speech is a bit slow and delayed which family relates is not different. Vocal quality remains poor. Is being seen by ENT today. Concerned vocal cord paralysis. Objective - Vital Signs Vital signs: Vital Signs Temp 98.9 F 04/01/17 20:00 Pulse 96 04/01/17 20:33 Resp 18 04/01/17 20:00 BP 110/57 04/01/17 20:00 Pulse Ox 97 04/01/17 20:00 Intake & Output 04/01/17 04/01/17 04/02/17 06:59 18:59 06:59 Intake Total 700 200 Output Total 1200 Balance -500 200 Weight 90 kg Intake: IV 600 200 Dextrose 5% in Water 1, 600 200 000 ml @ 75 mls/hr IV . [id number] ERNESTO Rx#:[id number] Intake, IV Titration 50 Amount Cefepime 2 gm In Sodium 50 Chloride 0.9% 50 ml @ 100 mls/hr IVPB Q8H ERNESTO Rx#: [id number] Oral 50 0 Output: Urine 1200 Other: Voiding Method Bedside Commode Bedside Commode Urinal Urinal Diaper Diaper # Voids 2 - Exam 76-year-old male who appears to be acutely ill. Extubated HEENT: Anicteric conjunctiva are pink and moist nasal mucosa grossly intact without significant lesions, no significant lesions of the oral cavity Neck: The neck is supple without significant lymphadenopathy or thyromegaly. Lungs: Symmetric air entry is noted. Basilar crackles are noted. Expiratory wheezes are scattered no bronchial sounds Heart: Irregularly irregular rate about 120. Soft S4 no murmur click or rub is noted Abdomen: Positive bowel sounds soft and nontender without palpable masses or organomegaly. There was no guarding or rebound. Extremities: Extremities have some generalized edema.. Skin on the interior aspect of both thighs, as well as anterior aspect of both thighs and lower abdominal wall or multiple small skin lesions that have developed since he's been on chemotherapy. There is some induration around these sites. There is no expressible purulence. They've improved in the last day. Some evidence of some mild erythema to the anterior chest wall as well to his back from initiation of the recent radiation therapy. Neurologically he is . Calm and cooperative. Does have generalized weakness. The speech is understandable but somewhat slow. The family relates this is his pattern as of late. Not a new finding. No hoarseness to voice however is new - Labs CBC & Chem 7: 04/01/17 07:18 04/01/17 07:18 Labs: Abnormal Lab Results - Last 24 Hours (Table) 04/01/17 04/01/17 04/01/17 Range/Units 05:31 07:18 07:18 WBC 14.6 H (3.8-10.6) k/uL RBC 2.58 L (4.30-5.90) m/uL Hgb 8.4 L (13.0-17.5) gm/dL Hct 24.6 L (39.0-53.0) % RDW 16.3 H (11.5-15.5) % Plt Count 46 L* (150-450) k/uL Neutrophils # (Manual) 12.3 H (1.3-7.7) k/uL Lymphocytes # (Manual) 0.5 L (1.0-4.8) k/uL Monocytes # (Manual) 1.4 H (0-1.0) k/uL Nucleated RBCs 1 H (0-0) /100 WBC Chloride 108 H (98-107) mmol/L BUN 21 H (9-20) mg/dL POC Glucose (mg/dL) 111 H (75-99) mg/dL Total Protein 5.6 L (6.3-8.2) g/dL Albumin 2.9 L (3.5-5.0) g/dL 04/01/17 04/01/17 04/01/17 Range/Units 11:37 17:10 21:02 WBC (3.8-10.6) k/uL RBC (4.30-5.90) m/uL Hgb (13.0-17.5) gm/dL Hct (39.0-53.0) % RDW (11.5-15.5) % Plt Count (150-450) k/uL Neutrophils # (Manual) (1.3-7.7) k/uL Lymphocytes # (Manual) (1.0-4.8) k/uL Monocytes # (Manual) (0-1.0) k/uL Nucleated RBCs (0-0) /100 WBC Chloride (98-107) mmol/L BUN (9-20) mg/dL POC Glucose (mg/dL) 116 H 150 H 117 H (75-99) mg/dL Total Protein (6.3-8.2) g/dL Albumin (3.5-5.0) g/dL Laboratory Results WBC 14.6 k/uL (3.8-10.6) H 04/01/17 07:18 RBC 2.58 m/uL (4.30-5.90) L 04/01/17 07:18 Hgb 8.4 gm/dL (13.0-17.5) L 04/01/17 07:18 Hct 24.6 % (39.0-53.0) L 04/01/17 07:18 MCV 95.4 fL (80.0-100.0) 04/01/17 07:18 MCH 32.5 pg (25.0-35.0) 04/01/17 07:18 MCHC 34.1 g/dL (31.0-37.0) 04/01/17 07:18 RDW 16.3 % (11.5-15.5) H 04/01/17 07:18 Plt Count 46 k/uL (150-450) L* 04/01/17 07:18 Neutrophils % 75 % 03/26/17 04:10 Neutrophils % (Manual) 82.5 % 04/01/17 07:18 Band Neutrophils % 1.5 % 04/01/17 07:18 Lymphocytes % 16 % 03/26/17 04:10 Lymphocytes % (Manual) 3.5 % 04/01/17 07:18 Monocytes % 5 % 03/26/17 04:10 Monocytes % (Manual) 9.5 % 04/01/17 07:18 Eosinophils % 0 % 03/26/17 04:10 Basophils % 0 % 03/26/17 04:10 Metamyelocytes % 1.5 % 04/01/17 07:18 Myelocytes % 1.5 % 04/01/17 07:18 Neutrophils # 1.7 k/uL (1.3-7.7) 03/26/17 04:10 Neutrophils # (Manual) 12.3 k/uL (1.3-7.7) H 04/01/17 07:18 Lymphocytes # 0.3 k/uL (1.0-4.8) L 03/26/17 04:10 Lymphocytes # (Manual) 0.5 k/uL (1.0-4.8) L 04/01/17 07:18 Monocytes # 0.1 k/uL (0-1.0) 03/26/17 04:10 Monocytes # (Manual) 1.4 k/uL (0-1.0) H 04/01/17 07:18 Eosinophils # 0.0 k/uL (0-0.7) 03/26/17 04:10 Basophils # 0.0 k/uL (0-0.2) 03/26/17 04:10 Nucleated RBCs 1 /100 WBC (0-0) H 04/01/17 07:18 Differential Comment 03/25/17 05:22 Manual Slide Review Performed 03/31/17 05:14 Polychromasia Present 04/01/17 07:18 Hypochromasia Slight 03/21/17 07:03 Poikilocytosis (manual Present 03/23/17 05:37 Anisocytosis Slight 04/01/17 07:18 Anisocytosis (manual) Present 03/23/17 05:37 Macrocytosis Slight 03/24/17 05:24 Tear Drop Cells Present 03/21/17 07:03 Ovalocytes Present 03/21/17 07:03 PT 12.6 sec (9.0-12.0) H 03/28/17 04:33 INR 1.3 (<1.1) 03/28/17 04:33 APTT 24.3 sec (22.0-30.0) 03/20/17 04:26 Sample Site LRAD 03/26/17 16:56 ABG pH 7.48 (7.35-7.45) H 03/26/17 16:56 ABG pCO2 24 mmHg (35-45) L 03/26/17 16:56 ABG pO2 80 mmHg (83-108) L 03/26/17 16:56 ABG HCO3 18 mmol/L (21-25) L 03/26/17 16:56 ABG Total CO2 19 mmol/L (19-24) 03/26/17 16:56 ABG O2 Saturation 97.0 % (94-97) 03/26/17 16:56 ABG Base Excess -4.9 mmol/L 03/26/17 16:56 FiO2 30 % 03/26/17 16:56 Sodium 142 mmol/L (137-145) 04/01/17 07:18 Potassium 4.5 mmol/L (3.5-5.1) 04/01/17 07:18 Chloride 108 mmol/L (98-107) H 04/01/17 07:18 Carbon Dioxide 27 mmol/L (22-30) 04/01/17 07:18 Anion Gap 7 mmol/L 04/01/17 07:18 BUN 21 mg/dL (9-20) H 04/01/17 07:18 Creatinine 1.01 mg/dL (0.66-1.25) 04/01/17 07:18 Est GFR (MDRD) Af Amer >60 (>60 ml/min/1.73 sqM) 04/01/17 07:18 Est GFR (MDRD) Non-Af >60 (>60 ml/min/1.73 sqM) 04/01/17 07:18 Glucose 98 mg/dL (74-99) 04/01/17 07:18 POC Glucose (mg/dL) 117 mg/dL (75-99) H 04/01/17 21:02 POC Glu Program [employer] MILES Onesimo Carrillo 04/01/17 21:[address] Glu mg/dL 134 mg/dL 03/24/17 05:24 Hemoglobin A1c 6.3 % (4.2-6.1) H 03/24/17 05:24 Plasma Lactic Acid Arnaldo 1.3 mmol/L (0.7-2.0) 03/18/17 21:10 Uric Acid 5.4 mg/dL (3.5-8.5) 04/01/17 06:18 Calcium 9.1 mg/dL (8.4-10.2) 04/01/17 07:18 Phosphorus 2.8 mg/dL (2.5-4.5) 03/27/17 04:27 Magnesium 1.9 mg/dL (1.6-2.3) 03/27/17 04:27 Total Bilirubin 1.0 mg/dL (0.2-1.3) 04/01/17 07:18 AST 23 U/L (17-59) 04/01/17 07:18 ALT 41 U/L (21-72) 04/01/17 07:18 Alkaline Phosphatase 109 U/L (38-126) 04/01/17 07:18 Troponin I 0.022 ng/mL (0.000-0.034) 03/31/17 05:14 Total Protein 5.6 g/dL (6.3-8.2) L 04/01/17 07:18 Albumin 2.9 g/dL (3.5-5.0) L 04/01/17 07:18 Urine Color Yellow 03/18/17 21:50 Urine Appearance Clear (Clear) 03/18/17 21:50 Urine pH 6.0 (5.0-8.0) 03/18/17 21:50 Ur Specific Polaris 1.029 (1.001-1.035) 03/18/17 21:50 Urine Protein Trace (Negative) H 03/18/17 21:50 Urine Glucose (UA) Negative (Negative) 03/18/17 21:50 Urine Ketones Negative (Negative) 03/18/17 21:50 Urine Blood Negative (Negative) 03/18/17 21:50 Urine Nitrite Negative (Negative) 03/18/17 21:50 Urine Bilirubin Negative (Negative) 03/18/17 21:50 Urine Urobilinogen <2.0 mg/dL (<2.0) 03/18/17 21:50 Ur Leukocyte Esterase Negative (Negative) 03/18/17 21:50 Vancomycin Trough 15.3 ug/mL 03/29/17 05:32 Blood Type O Negative 03/31/17 11:25 Blood Type Recheck No 03/31/17 11:25 Antibody Screen NEGATIVE 03/31/17 11:25 Crossmatch See Detail 03/31/17 11:25 Transfuse Platelets 03/24/17 03/24/17 08:53 Spec Expiration Date 04/03/2017 - 232403/31/17 11:25 Microbiology 03/18/17 21:10 Blood Blood Culture - Final No Growth after 144 hours 03/22/17 12:17 Sputum Gram Stain - Final 03/22/17 12:17 Sputum Sputum Culture - Final 03/21/17 11:35 Groin Gram Stain - Final 03/21/17 11:35 Groin Wound Culture - Final Methicillin resist S. aureus 03/20/17 12:22 Abdomen Gram Stain - Final 03/20/17 12:22 Abdomen Wound Culture - Final Methicillin resist S. aureus Enterococcus faecalis 03/18/17 21:50 Urine,Voided Urine Culture - Final Assessment and Plan (1) Febrile neutropenia Narrative/Plan: 76-year-old male presents the emergency center with evidence of feeling quite poorly. Having increasing difficulties with swallowing due to significant pain. Has evidence of some radiation esophagitis as well as mucositis at this time. Has had some response to Dilaudid and cool solution. These will continue. Oncology is following. Radiation oncology also following. Emollient can be applied to the irritation to the skin For the febrile neutropenia antibiotic therapy with cefepime and vancomycin is being utilized because of the extensive mucositis vancomycin is indicated. Cultures are in process Supportive care Fluid resuscitation is occurring Patient has multiple small skin lesions likely related to the current chemotherapy. They are not necrotic and do not appear to be ecthyma gangrenosum at this time, more blisterlike. Given her irritation symptoms and can be applied to these areas and when improved the hydrocolloid can be utilized. Cultures are processing being monitored. Given the mucositis the patient was treated with antifungals and now also been discontinued. With recovery of his neutropenia. Albumin is low nutritional supplementation and process Patient is showing ongoing improvement. He has been out of the ICU and showing improvement. His neutropenia has resolved. Constantly his cefepime was discontinued. He is on his last day of vancomycin and has had improvement of the lesions to his skin. Status: Acute (2) Small cell lung cancer Status: Chronic (3) Atrial flutter with rapid ventricular response Status: Acute (4) Anemia Status: Acute
[2017-04-02] MEDS: HYDROcodone/APAP 5-325MG 1 EACH TAB PO PRN ×2 (02:37→06:31)
[2017-04-02] MEDS: DEXTROSE 5% IN WATER 1,000 ML IV SCH ×2 (02:39→12:35)
[2017-04-02] MEDS: VANCOMYCIN 1,500 MG in SODIUM CHLORIDE 0.9% 250 ML IVPB SCH (05:51)
[2017-04-02 06:10] LABS: Glucose,Whole Blood 122 mg/dL (75-99)
[2017-04-02 06:12] LABS: Anion Gap 9 mmol/L; Blood Urea Nitrogen 21 mg/dL (9-20); Calcium 8.9 mg/dL (8.4-10.2); Carbon Dioxide 24 mmol/L (22-30); Chloride 103 mmol/L (98-107); Glucose 166 mg/dL (74-99); Non-African American GFR(MDRD) >60 (>60 ml/min/1.73 sqM); Sodium 136 mmol/L (137-145)
[2017-04-02] MEDS: INSULIN LISPRO (humaLOG) 300 UNIT/3 ML VIAL SQ SCH ×4 (06:18→21:03)
[2017-04-02] MEDS: PANTOPRAZOLE 40 MG/10 ML VIAL IV SCH ×2 (06:31→17:24)
[2017-04-02 06:37] LABS: Anisocytosis Slight; CH 32.2; CHCM 33.8; HCT 23.4 % (39.0-53.0); HDW 3.13; HGB 7.9 gm/dL (13.0-17.5); Immature Gran Flag Slight; MCH 32.6 pg (25.0-35.0); MCHC 33.9 g/dL (31.0-37.0); MCV 96.1 fL (80.0-100.0); RBC 2.44 m/uL (4.30-5.90); RDW 16.6 % (11.5-15.5); WBC 8.8 k/uL (3.8-10.6); WBC (Perox) 9.55
[2017-04-02 07:45] LABS: Add Differential Manual Differential
[2017-04-02 08:02] LABS: Band Neutrophils % 3.5 %; Metamyelocytes % 1.5 %; Myelocytes % 1.5 %; Nucleated Red Blood Cells 0 /100 WBC (0-0); Total Cells Counted 200
[2017-04-02 08:09] LABS: Manual Review Performed
[2017-04-02] MEDS: SYMBICORT 160-4.5 MCG INHALER INHALATION SCH (08:36)
[2017-04-02] MEDS: IPRATROPIUM-ALBUTEROL 3 ML NEB INHALATION SCH ×4 (08:36→20:22)
[2017-04-02] MEDS: ZINC OXIDE 20% OINT 28.4 GM TUBE TOPICAL SCH ×3 (09:57→20:17)
[2017-04-02] MEDS: PYRIDOXINE 50 MG TAB PO SCH (09:57)
[2017-04-02] MEDS: LACTULOSE 20 GM/30 ML CUP PO SCH (09:57)
[2017-04-02] MEDS: MAG HYDROX/AL HYDROX/SIMETH 30 ML, LIDOCAINE VISCOUS 30 ML, diphenhydrAMINE ELIXIR 75 M... PO SCH ×16 (09:57→17:27)
[2017-04-02] MEDS: GABAPENTIN 300 MG CAP PO SCH ×4 (09:58→20:17)
[2017-04-02] MEDS: METOPROLOL TARTRATE 50 MG TAB PO SCH ×3 (09:58→20:17)
[2017-04-02] MEDS: DOCUSATE ORAL SOLN 100 MG/10 ML CUP PO SCH ×3 (09:58→20:16)
[2017-04-02] MEDS: VITAMIN E (DL,TOCOPHERYL ACET) 400 UNIT CAP PO SCH (09:59)
[2017-04-02] MEDS: APIXABAN 5 MG TAB PO SCH ×2 (09:59→20:16)
[2017-04-02] MEDS: CHOLECALCIFEROL 1,000 UNIT TAB PO SCH (09:59)
[2017-04-02] MEDS: FERROUS SULFATE 325 MG TAB PO SCH (09:59)
[2017-04-02] MEDS: ATORVASTATIN 80 MG TAB PO SCH (09:59)
[2017-04-02] MEDS: MULTIVITAMINS, THERA 1 EACH TAB PO SCH (09:59)
[2017-04-02] MEDS: SPIRONOLACTONE 25 MG TAB PO SCH (10:00)
[2017-04-02] MEDS: HYDROCORTISONE 1% CREAM 454 GM JAR TOPICAL SCH ×2 (10:00→20:16)
[2017-04-02] MEDS: OXYBUTYNIN CHLORIDE 5 MG TAB PO SCH ×4 (10:00→20:17)
[2017-04-02] MEDS: methylPREDNISolone SOD SUCCI 125 MG/2 ML VIAL IV SCH ×3 (10:20→23:35)
--- NOTE | 2017-04-02 11:00 | P.ARTDOP ---
Arterial Doppler UPPER EXTREMITY ARTERIAL DOPPLER: DATE OF SERVICE: 04/01/2017 Reason for study: Cold hands Doppler waveforms: Multiphasic bilaterally throughout Pressure gradients: No significant right to left or segmental pressure gradients. Impression: Normal upper extremity study.
--- NOTE | 2017-04-02 11:29 | P.PN ---
Subjective Principal diagnosis: Acute neutropenic sepsis and respiratory failure This is a 76-year-old gentleman who was initially admitted to the hospital with acute sepsis and associated respiratory failure. He has a known history of coronary artery disease with prior bypass surgery, ischemic cardiomyopathy, chronic persistent A. fib/flutter, PAD with prior vascular stenting, small cell lung CA. Cardiology has been following the patient because of his atrial flutter. Patient continues to be in an atrial flutter heart rate today is maintaining in the 90s on metoprolol tartrate 50 mg one tablet by mouth 3 times a day. Patient was seen and examined this morning, sitting up in the chair. Continues to complain of right elbow pain and swelling. Denies any chest discomfort or fluttering in the chest. Breathing is improving, blood pressure 127/60 with a heart rate in the 90s. Venous duplex study of the right upper extremity did not reveal any evidence of a DVT. Objective - Vital Signs Vital signs: Vital Signs Temp 98.3 F 04/02/17 08:00 Pulse 96 04/02/17 08:52 Resp 18 04/02/17 08:00 BP 127/63 04/02/17 08:00 Pulse Ox 93 L 04/02/17 08:00 Intake & Output 04/01/17 04/02/17 04/02/17 18:59 06:59 18:59 Intake Total 200 150 Balance 200 150 Weight 90 kg 89.3 kg Intake: IV 200 150 Dextrose 5% in Water 1, 200 150 000 ml @ 75 mls/hr IV . [id number] [facility] Rx#:[id number] Oral 0 Other: Voiding Method Bedside Commode Toilet Urinal Diaper Diaper Incontinent # Voids 1 1 - Exam PHYSICAL EXAMINATION: HEENT: Head is atraumatic, normocephalic. Pupils equal, round. Neck is supple. There is no elevated jugular venous pressure. HEART EXAMINATION: S1 and S2 irregularly irregular CHEST EXAMINATION: Lungs reveal diminished breath sounds bilaterally with fine expiratory wheezes. ABDOMEN: Soft, nontender. Bowel sounds are heard. No organomegaly noted. EXTREMITIES: 2+ peripheral pulses with 1+ evidence of peripheral edema and no calf tenderness noted. Positive right elbow tenderness and mild swelling NEUROLOGIC patient is awake, alert and oriented -3. . - Labs CBC & Chem 7: 04/02/17 05:06 04/02/17 05:06 Labs: Abnormal Lab Results - Last 24 Hours (Table) 04/01/17 04/01/17 04/01/17 Range/Units 11:37 17:10 21:02 RBC (4.30-5.90) m/uL Hgb (13.0-17.5) gm/dL Hct (39.0-53.0) % RDW (11.5-15.5) % Plt Count (150-450) k/uL Lymphocytes # (Manual) (1.0-4.8) k/uL Sodium (137-145) mmol/L BUN (9-20) mg/dL Glucose (74-99) mg/dL POC Glucose (mg/dL) 116 H 150 H 117 H (75-99) mg/dL 04/02/17 04/02/17 04/02/17 Range/Units 05:06 05:06 06:09 RBC 2.44 L (4.30-5.90) m/uL Hgb 7.9 L (13.0-17.5) gm/dL Hct 23.4 L (39.0-53.0) % RDW 16.6 H (11.5-15.5) % Plt Count 59 L (150-450) k/uL Lymphocytes # (Manual) 0.6 L (1.0-4.8) k/uL Sodium 136 L (137-145) mmol/L BUN 21 H (9-20) mg/dL Glucose 166 H (74-99) mg/dL POC Glucose (mg/dL) 122 H (75-99) mg/dL Assessment and Plan (1) Neutropenic sepsis Status: Acute (2) Small cell lung cancer Status: Acute (3) Atrial flutter, chronic Status: Acute (4) Systolic CHF, acute on chronic Status: Acute (5) Ischemic cardiomyopathy Status: Acute (6) AICD (automatic cardioverter/defibrillator) present Status: Acute (7) Acute renal injury Status: Acute (8) PVD (peripheral vascular disease) Status: Acute (9) Hx of CABG Status: Acute (10) HTN (hypertension) Status: Acute (11) Hyperlipemia Status: Acute Plan: Cardiology's perspective, continue the patient on his current medications. Continue to monitor heart rate. DNP note has been reviewed, I agree with a documented findings and plan of care. Patient was seen and examined.
[2017-04-02 12:08] LABS: Glucose,Whole Blood 185 mg/dL (75-99)
--- NOTE | 2017-04-02 13:25 | FL ---
EXAMINATION TYPE: FL barium swallow w video DATE OF EXAM: 04/02/2017 COMPARISON: NONE HISTORY: Vocal cord paralysis and aspiration TECHNIQUE: Fluoroscopy. FINDINGS: Fluoroscopic guidance was provided for the procedure performed in conjunction with the [facility] pathology department. Please see complete report forthcoming from the Speech Pathology departmen t. Various consistencies from thin liquid to solids were administered. Mild transient penetration without aspiration occurred with thin liquids and nectar thick liquids dur ing the initial portion examination. Follow-up with thin liquids with chin tuck method including ryan fregoso through a straw or without significant penetration. No significant pooling was observed in the vallecula. There was normal propulsion of the bolus. IMPRESSION: 1. Mild transient penetration with thin liquids and nectar thick liquids during normal swallowing
--- NOTE | 2017-04-02 14:11 | XR ---
Right elbow HISTORY: Right elbow pain 3 views of the right elbow There is marginal spurring present, bone mineralization is maintained. Joint space loss is present la teral compartment. Radial head shows focal lucency possibly representing osteochondral defect. There is soft tissue swelling present. There are ossific densities present anteriorly and posteriorly which likely represent loose bodies. 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 Possible osteochondral defect radi al head.
--- NOTE | 2017-04-02 14:12 | XR ---
Right wrist HISTORY: Right wrist pain 4 views of the right wrist No comparisons There is negative ulnar variance present. Calcification is present along the triangular fibrocartilag e. Remodeling present at the radiocarpal joint. Hypertrophic change present at the carpometacarpal deana int of the first digit. Alignment is maintained. Bone mineralization mildly reduced. IMPRESSION: Consider crystal deposition arthropathy.
--- NOTE | 2017-04-02 14:22 | XR ---
EXAMINATION TYPE: XR chest 2V DATE OF EXAM: 04/02/2017 COMPARISON: Prior chest x-ray 03/28/2017 HISTORY: Chest pain TECHNIQUE: Frontal and lateral views of the chest are obtained. FINDINGS: There is no focal air space opacity, pleural effusion, or pneumothorax seen. The cardiac silhouette size is stable. Patient is post median sternotomy. Intracardiac defibrillator lead prese nt within the right ventricle. The osseous structures are intact. IMPRESSION: No acute cardiopulmonary process.
--- NOTE | 2017-04-02 14:25 | XR ---
Right shoulder HISTORY: Right shoulder pain 3 views of the right shoulder No comparisons Hypertrophic changes present at the acromioclavicular joint. Pseudocyst formation present within the humeral head. Shoulder somewhat high riding on one view. Right lung apex as visualized is normal. Abhishek e remodeling present at the glenohumeral joint. IMPRESSION: Osteoarthritic changes are present. Correlate for impingement, difficult to exclude at le ast a partial rotator cuff tear.
--- NOTE | 2017-04-02 14:50 | P.PN ---
Subjective Patient is a 76-year-old male, patient of Dr. Mulligan in the outpatient setting, with medical history significant for paroxysmal atrial fibrillation, GERD, hyperlipidemia, hypertension, coronary artery disease status post coronary artery bypass grafting in 2014 followed by stenting to the left SFA in August 2015, myocardial infarction, ischemic cardiomyopathy status post placement of internal cardiac defibrillator, prostate cancer status post prostatectomy in 1998, peripheral vascular disease status post stent placement to left lower extremity, osteoarthritis, severe peripheral neuropathy, and remote nicotine dependence. 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 Per chart and daughter, patient had been experiencing trouble with swallowing and increased shortness of breath over the last couple of days prior to admission in addition to having generalized weakness, fatigue, and shakiness. Patient originally presented to [facility] where he underwent a CTA of the chest with evidence of cardiomegaly, right upper lung nodule and right hilar invasive mass with thoracic adenopathy; and moderate to severe thickening of the mid esophagus. Patient was transferred to [facility]. In the emergency department, patient was found to have evidence of febrile neutropenia and pancytopenia with evidence of acute renal failure. Patient was admitted to the intensive care unit and consults were requested for Dr. Figueroa for oncology service , Dr. Courtney for pulmonary service, cardiology service, and Dr. Gomez for infectious disease service. While in the intensive care unit, patient's respiratory status declined requiring ventilatory support. Patient did have positive wound cultures for MRSA for blister type wounds. Patient was extubated on 03/26/2017 and transferred out of the intensive care unit on 2016 to selective care unit. Patient is evaluated on selective care unit where he is currently sitting up in a chair. Patient continues to complaining of right forearm pain starting around the elbow radiating down his right forearm. Patient denies chills, fevers , nausea, vomiting, increased shortness of breath, chest pain, or abdominal pain. Patient remains in atrial flutter with heart rate in the low 100s. Patient is passing flatus with last bowel movement on 03/29/2017. T-max the last 24 hours 99.6 at 4 AM last night. WBC decreased to 8.8. Hemoglobin decreased to 7.9. Platelets increased to 59. Patient had his last dose of vancomycin this morning. Venous Doppler study of right upper extremity negative for DVT. Arterial Doppler study of right upper extremity negative. X- ray of right elbow with evidence of osteoarthritis, possible osteochondral defect radial head. X-ray of right wrist with evidence of crystal deposition arthropathy. Uric acid 5.4. Patient has been evaluated by Dr. 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 In regards to patient's voice hoarseness, Dr. Cota suggests that patient is a candidate for a right medialization thyroplasty which can be performed once patient is medically stable. Objective - Vital Signs Vital signs: Vital Signs Temp 98.5 F 04/02/17 12:00 Pulse 100 04/02/17 12:13 Resp 18 04/02/17 12:00 BP 115/67 04/02/17 12:00 Pulse Ox 97 04/02/17 12:00 Intake & Output 04/01/17 04/02/17 04/02/17 18:59 06:59 18:59 Intake Total 200 150 Balance 200 150 Weight 90 kg 89.3 kg Intake: IV 200 150 Dextrose 5% in Water 1, 200 150 000 ml @ 75 mls/hr IV . [id number] [facility] Rx#:[id number] Oral 0 Other: Voiding Method Bedside Commode Toilet Urinal Diaper Diaper Incontinent # Voids 1 1 - Exam GENERAL: Pt is awake and alert, appears in no acute distress. HEAD: Atraumatic, normocephalic. EYES: Pupils equal, round, and reactive to light, sclera anicteric, conjunctiva are normal. ENT: Moist mucous membranes. NECK: Supple without lymphadenopathy or JVD. Trachea midline. LUNGS: Breath sounds diminished with throughout lung kohler. HEART: Heart S1, S2, no S3 or S4. Regular irregular. No murmurs, rubs or gallops. ABDOMEN: Soft, nondistended, normoactive bowel sounds. No guarding, no rebound. No masses or organomegaly appreciated. EXTREMITIES: 2+ peripheral pulses. 1+ edema to bilateral lower extremities. Right elbow tenderness with erythema and mild swelling. NEUROLOGICAL: Pt alert and awake, speech coherent but difficult to understand. Patient able to carry on forward conversation. SKIN: Warm, dry. - Labs CBC & Chem 7: 04/02/17 05:06 04/02/17 05:06 Labs: Abnormal Lab Results - Last 24 Hours (Table) 04/01/17 04/01/17 04/02/17 Range/Units 17:10 21:02 05:06 RBC 2.44 L (4.30-5.90) m/uL Hgb 7.9 L (13.0-17.5) gm/dL Hct 23.4 L (39.0-53.0) % RDW 16.6 H (11.5-15.5) % Plt Count 59 L (150-450) k/uL Lymphocytes # (Manual) 0.6 L (1.0-4.8) k/uL Sodium (137-145) mmol/L BUN (9-20) mg/dL Glucose (74-99) mg/dL POC Glucose (mg/dL) 150 H 117 H (75-99) mg/dL 04/02/17 04/02/17 04/02/17 Range/Units 05:06 06:09 12:06 RBC (4.30-5.90) m/uL Hgb (13.0-17.5) gm/dL Hct (39.0-53.0) % RDW (11.5-15.5) % Plt Count (150-450) k/uL Lymphocytes # (Manual) (1.0-4.8) k/uL Sodium 136 L (137-145) mmol/L BUN 21 H (9-20) mg/dL Glucose 166 H (74-99) mg/dL POC Glucose (mg/dL) 122 H 185 H (75-99) mg/dL Assessment and Plan Plan: Impression and plan: 1. Neutropenic sepsis suspect secondary to recent chemotherapy and radiation for limited stage small cell lung carcinoma post chemoradiation therapy, improving. Wound cultures positive for MRSA. Patient has received one session of systemic chemotherapy with carboplatinum and [employer]-16 and 10 sessions of radiation therapy. 2. Pancytopenia, present on admission, suspect secondary to anti-neoplastic chemotherapy. WBC currently 8.8. Hemoglobin 7.9. Platelet count 59. 3. Atrial flutter, ventricular response controlled. Per oncology, patient may resume anticoagulation once platelet count is greater than 50. 4. Acute renal failure, present on admission, suspect secondary to hypovolemia and hypoperfusion, secondary to dehydration, resolved. 5. Elevated blood sugars on admission. 6. Elevated alkaline phosphatase, present on admission. 7. Dysphagia, present on admission, suspect secondary to esophagitis and mucositis secondary to recent chemotherapy and radiation with possibility of Traci esophagitis. 8. 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 9. Hoarseness of the voice. Dr. Cota suggests patient is a candidate for a right medialization thyroplasty once medically stable to improve patient's voice. 8. History of chronic renal failure, stage III. 9. Paroxysmal atrial fibrillation maintained on Eliquis in the outpatient setting. 10. Hyperlipidemia. 11. Hypertension. 12. Chronic systolic heart failure, ischemic cardiomyopathy status post AICD placement. Ejection fraction 35%. 13. Coronary artery disease status post coronary artery bypass grafting followed by stenting. 14. History of prostate cancer status post prostatectomy. 15. History of GERD. 16. Severe peripheral vascular disease status post stenting to right lower extremity. 17. Severe peripheral neuropathy. 18. Osteoarthritis. 19. History of anxiety and depression, stable. 20. History of nicotine dependence. 21. Acute respiratory failure secondary to above mentioned comorbidities, currently extubated. 22. Anemia, chemo induced. 23. Right elbow pain associated with erythema and swelling. Venous and arterial ultrasound negative for blood clots. 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 X-ray of right wrist with evidence of crystal deposition arthropathy. Uric acid level within normal limits. 24. Constipation. Continue to monitor patient. Continue current medications. Patient has been started on Eliquis 5 mg PO BID and metoprolol 50 mg by mouth 3 times a day for anticoagulation and rate control. Patient has been started on Solu-Medrol 60 mg IV every 8 to help with right elbow and right wrist pain. Medications have been ordered to promote bowel movement. Continue physical therapy. Continue to follow with consultants. Continue GI and DVT prophylaxis. Repeat CBC, BMP in a.m. The above impression and plan have been discussed and directed by Dr. Mulligan. Carmel LACEY acting as scribe for [place].
[2017-04-02 17:07] LABS: Glucose,Whole Blood 230 mg/dL (75-99)
[2017-04-02 20:56] LABS: Glucose,Whole Blood 225 mg/dL (75-99)
[2017-04-03] MEDS: DEXTROSE 5% IN WATER 1,000 ML IV SCH ×2 (03:27→13:50)
[2017-04-03 06:14] LABS: Glucose,Whole Blood 200 mg/dL (75-99)
[2017-04-03] MEDS: MAG HYDROX/AL HYDROX/SIMETH 30 ML, LIDOCAINE VISCOUS 30 ML, diphenhydrAMINE ELIXIR 75 M... PO SCH ×8 (06:36→11:34)
[2017-04-03] MEDS: PANTOPRAZOLE 40 MG/10 ML VIAL IV SCH (06:36)
[2017-04-03] MEDS: INSULIN LISPRO (humaLOG) 300 UNIT/3 ML VIAL SQ SCH ×2 (06:36→12:22)
[2017-04-03] MEDS: IPRATROPIUM-ALBUTEROL 3 ML NEB INHALATION SCH ×3 (07:24→15:13)
[2017-04-03] MEDS: SYMBICORT 160-4.5 MCG INHALER INHALATION SCH (07:25)
[2017-04-03 07:31] LABS: Anion Gap 10 mmol/L; Blood Urea Nitrogen 24 mg/dL (9-20); Carbon Dioxide 22 mmol/L (22-30); Chloride 108 mmol/L (98-107); Glucose 192 mg/dL (74-99); Non-African American GFR(MDRD) >60 (>60 ml/min/1.73 sqM); Potassium 4.4 mmol/L (3.5-5.1); Sodium 140 mmol/L (137-145)
[2017-04-03 07:43] LABS: Anisocytosis Slight; CH 32.4; CHCM 35.6; HCT 20.7 % (39.0-53.0); HDW 3.33; HGB 7.5 gm/dL (13.0-17.5); Immature Gran Flag Slight; MCH 33.2 pg (25.0-35.0); MCHC 36.3 g/dL (31.0-37.0); MCV 91.5 fL (80.0-100.0); Mean Platelet Volume 10.4; RBC 2.27 m/uL (4.30-5.90); RDW 16.4 % (11.5-15.5)
[2017-04-03] MEDS: DOCUSATE ORAL SOLN 100 MG/10 ML CUP PO SCH (08:34)
[2017-04-03] MEDS: ZINC OXIDE 20% OINT 28.4 GM TUBE TOPICAL SCH (08:34)
[2017-04-03] MEDS: GABAPENTIN 300 MG CAP PO SCH ×2 (08:35→13:48)
[2017-04-03] MEDS: OXYBUTYNIN CHLORIDE 5 MG TAB PO SCH ×2 (08:35→13:49)
[2017-04-03] MEDS: VITAMIN E (DL,TOCOPHERYL ACET) 400 UNIT CAP PO SCH (08:35)
[2017-04-03] MEDS: LACTULOSE 20 GM/30 ML CUP PO SCH (08:35)
[2017-04-03] MEDS: ATORVASTATIN 80 MG TAB PO SCH (08:35)
[2017-04-03] MEDS: APIXABAN 5 MG TAB PO SCH (08:35)
[2017-04-03] MEDS: MULTIVITAMINS, THERA 1 EACH TAB PO SCH (08:36)
[2017-04-03] MEDS: CHOLECALCIFEROL 1,000 UNIT TAB PO SCH (08:36)
[2017-04-03] MEDS: SPIRONOLACTONE 25 MG TAB PO SCH (08:36)
[2017-04-03] MEDS: METOPROLOL TARTRATE 50 MG TAB PO SCH (08:36)
[2017-04-03] MEDS: FERROUS SULFATE 325 MG TAB PO SCH (08:36)
[2017-04-03] MEDS: PYRIDOXINE 50 MG TAB PO SCH (08:37)
[2017-04-03] MEDS: HYDROCORTISONE 1% CREAM 454 GM JAR TOPICAL SCH (08:37)
[2017-04-03] MEDS: methylPREDNISolone SOD SUCCI 125 MG/2 ML VIAL IV SCH (08:38)
[2017-04-03 08:45] VITALS: RESP 18
[2017-04-03] MEDS ORDERED: METOPROLOL TARTRATE 25 MG TAB PO ONE (09:30)
--- NOTE | 2017-04-03 09:39 | P.DS ---
Providers Date of admission: 03/18/17 23:10 Expected date of discharge: 04/03/17 Attending physician: Husam Mulligan Consults: 03/18/17 22:58 Consult Physician Routine Consulting Provider: Varun Figueroa Consult Reason/Comments: Your patient. Febrile neutropenia. Do you want consulting provider notified?: Yes Consult Physician Routine Consulting Provider: Aashish Carrizales Consult Reason/Comments: atrial flutter with RVR. Do you want consulting provider notified?: Yes 03/19/17 09:48 Consult Physician Urgent Consulting Provider: Kade Courtney Consult Reason/Comments: lung cancer Do you want consulting provider notified?: Yes 03/19/17 16:20 Consult Physician Stat Consulting Provider: Lev Gomez Consult Reason/Comments: neuropenia Do you want consulting provider notified?: Yes 03/31/17 11:04 Consult Physician Stat Consulting Provider: Josiah Collins Consult Reason/Comments: afib flutter rvr Do you want consulting provider notified?: Yes 04/01/17 10:29 Consult Physician Urgent Consulting Provider: Seth Chavarria Consult Reason/Comments: possible vocal cord dysfunction Do you want consulting provider notified?: Yes 04/01/17 21:06 Consult Physician Routine Consulting Provider: Piter Navarro Consult Reason/Comments: arterial US Do you want consulting provider notified?: Yes, Notify in am 04/02/17 15:21 Consult Physician Urgent Consulting Provider: Yassine Cruz Consult Reason/Comments: right elbow and wrist pain Do you want consulting provider notified?: Yes Primary care physician: Husam Mulligan Hospital Course: Patient is a 76-year-old male, patient of Dr. Mulligan in the outpatient setting, with medical history significant for paroxysmal atrial fibrillation, GERD, hyperlipidemia, hypertension, coronary artery disease status post coronary artery bypass grafting in 2014 followed by stenting to the left SFA in August 2015, myocardial infarction, ischemic cardiomyopathy status post placement of internal cardiac defibrillator, prostate cancer status post prostatectomy in 1998, peripheral vascular disease status post stent placement to left lower extremity, osteoarthritis, severe peripheral neuropathy, and remote nicotine dependence. 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 Per chart and daughter, patient had been experiencing trouble with swallowing and increased shortness of breath over the last couple of days prior to admission in addition to having generalized weakness, fatigue, and shakiness. Patient originally presented to [facility] where he underwent a CTA of the chest with evidence of cardiomegaly, right upper lung nodule and right hilar invasive mass with thoracic adenopathy; and moderate to severe thickening of the mid esophagus. Patient was transferred to [facility]. In the emergency department, patient was found to have evidence of febrile neutropenia and pancytopenia with evidence of acute renal failure. Patient was admitted to the intensive care unit and consults were requested for Dr. Figueroa for oncology service , Dr. Courtney for pulmonary service, cardiology service, and Dr. Gomez for infectious disease service. While in the intensive care unit, patient's respiratory status declined requiring ventilatory support. Patient did have positive wound cultures for MRSA for blister type wounds. Patient was extubated on 03/26/2017 and transferred out of the intensive care unit on 2016 to selective care unit. While on selective care unit, patient complained of right elbow and right forearm pain and was having problems with voice hoarseness. Patient was evaluated by Dr. 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 In regards to patient's voice hoarseness, Dr. Cota suggested that patient is a candidate for a right medialization thyroplasty in the outpatient setting. [facility] who diagnosed patient with arthritis of the right elbow and the right wrist. Recommendations to continue anti-inflammatory medications and physical therapy. Patient improved significantly during his hospital stay and was deemed stable for discharge from all consultants and primary care. Patient will be discharged to [facility] in [place] with close follow -up in the outpatient setting. Discharge diagnoses: 1. Neutropenic sepsis suspect secondary to recent chemotherapy and radiation for limited stage small cell lung carcinoma post chemoradiation therapy, improving. Wound cultures positive for MRSA. Patient has received one session of systemic chemotherapy with carboplatinum and [employer]-16 and 10 sessions of radiation therapy. 2. Pancytopenia, present on admission, suspect secondary to anti-neoplastic chemotherapy. 3. Atrial flutter, ventricular response controlled. 4. Acute renal failure, present on admission, suspect secondary to hypovolemia and hypoperfusion, secondary to dehydration, resolved. 5. Elevated blood sugars on admission. 6. Elevated alkaline phosphatase, present on admission. 7. Dysphagia, present on admission, suspect secondary to esophagitis and mucositis secondary to recent chemotherapy and radiation with possibility of Traci esophagitis. 8. 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 9. Hoarseness of the voice. Dr. Cota suggests patient is a candidate for a right medialization thyroplasty once medically stable to improve patient's voice. 8. History of chronic renal failure, stage III. 9. Paroxysmal atrial fibrillation maintained on Eliquis in the outpatient setting. 10. Hyperlipidemia. 11. Hypertension. 12. Chronic systolic heart failure, ischemic cardiomyopathy status post AICD placement. Ejection fraction 35%. 13. Coronary artery disease status post coronary artery bypass grafting followed by stenting. 14. History of prostate cancer status post prostatectomy. 15. History of GERD. 16. Severe peripheral vascular disease status post stenting to right lower extremity. 17. Severe peripheral neuropathy. 18. Osteoarthritis. 19. History of anxiety and depression, stable. 20. History of nicotine dependence. 21. Acute respiratory failure secondary to above mentioned comorbidities, resolved. 22. Anemia, chemo induced. 23. Osteoarthritis of multiple joints. 24. Constipation. The above impression and plan have been discussed and directed by Dr. Mulligan. Carmel LACEY acting as scribe for Dr. Mulligan. Pertinent Studies: Chest x-ray; EKG; brain CT; lower extremity CT; venous Doppler study; upper extremity ultrasound; arterial study; elbow x-ray; shoulder x-ray; wrist x-ray Procedures: Flexible nasopharyngeal laryngoscopy Patient Condition at Discharge: Stable Plan - Discharge Summary New Discharge Prescriptions: New Acetaminophen Tab [Tylenol] 650 mg PO Q6HR PRN tab PRN Reason: Mild Pain Or Fever > 100.5 Apixaban [Eliquis] 5 mg PO BID tab diphenhydrAMINE ELIXIR [Benadryl Elixir] 75 mg PO AC-TID dose HYDROcodone/APAP 5-325MG [Carney 5-325] 1 each PO Q4HR PRN #28 tab PRN Reason: Pain INSULIN LISPRO (humaLOG) [humaLOG (formulary)] 0 unit SQ ACHS vial Lactulose [Cephulac] 10 gm PO DAILY dose Lidocaine Viscous [Xylocaine Viscous 2%] 30 ml PO AC-TID bottle Mag Hydrox/Al Hydrox/Simeth [Maalox] 30 ml PO AC-TID dose Metoprolol Tartrate [Lopressor] 75 mg PO TID tab Nystatin 100,000 Unit/ml Susp [Mycostatin Oral Susp] 3,000,000 unit PO AC- TID dose predniSONE 0 mg PO DIRECTED #30 tab Zinc Oxide 20% Oint 1 applic TOPICAL TID dose Continue Omeprazole [PriLOSEC] 20 mg PO BID Atorvastatin [Lipitor] 80 mg PO DAILY Ferrous Sulfate [Iron (65 MG Elemental)] 325 mg PO DAILY Oxybutynin Chloride [Ditropan] 5 mg PO QID Docusate [Colace] 100 mg PO TID Pyridoxine [Vitamin B-6] 100 mg PO DAILY Multivitamins, Thera [Multivitamin (formulary)] 1 tab PO DAILY Spironolactone [Aldactone] 25 mg PO DAILY@0800 Cholecalciferol [Vitamin D3] 2,000 unit PO DAILY Ipratropium/Albuterol Sulfate [Combivent Respimat Inhaler] 1 puff INHALATION RT-QID Fluticasone/Vilanterol [Breo Ellipta 200-25 Mcg INH] 1 puff INHALATION RT- DAILY Vitamin E 400 unit PO DAILY Gabapentin 600 mg PO QID Discontinued Lisinopril [Zestril] 2.5 mg PO DAILY Metoprolol Tartrate [Lopressor] 50 mg PO TID Ondansetron [Zofran] 4 mg PO Q12HR PRN PRN Reason: Nausea Polyethylene Glycol 3350 [Miralax] 17 gm PO DAILY Fluconazole [Diflucan] 100 mg PO DAILY Apixaban [Eliquis] 2.5 mg PO BID Discharge Medication List Omeprazole [PriLOSEC] 20 mg PO BID 05/26/15 [History] Atorvastatin [Lipitor] 80 mg PO DAILY 08/15/15 [History] Ferrous Sulfate [Iron (65 MG Elemental)] 325 mg PO DAILY 12/19/15 [History] Oxybutynin Chloride [Ditropan] 5 mg PO QID 12/19/15 [History] Docusate [Colace] 100 mg PO TID 01/01/16 [History] Pyridoxine [Vitamin B-6] 100 mg PO DAILY 08/26/16 [History] Multivitamins, Thera [Multivitamin (formulary)] 1 tab PO DAILY 02/17/17 [History ] Spironolactone [Aldactone] 25 mg PO DAILY@0800 02/17/17 [History] Cholecalciferol [Vitamin D3] 2,000 unit PO DAILY 03/12/17 [History] Fluticasone/Vilanterol [Breo Ellipta 200-25 Mcg INH] 1 puff INHALATION RT-DAILY 03/12/17 [History] Ipratropium/Albuterol Sulfate [Combivent Respimat Inhaler] 1 puff INHALATION RT- QID 03/12/17 [History] Vitamin E 400 unit PO DAILY 03/12/17 [History] Gabapentin 600 mg PO QID 03/18/17 [History] Acetaminophen Tab [Tylenol] 650 mg PO Q6HR PRN tab 04/03/17 [Rx] Apixaban [Eliquis] 5 mg PO BID tab 04/03/17 [Rx] HYDROcodone/APAP 5-325MG [Carney 5-325] 1 each PO Q4HR PRN #28 tab 04/03/17 [Rx] INSULIN LISPRO (humaLOG) [humaLOG (formulary)] 0 unit SQ ACHS vial 04/03/17 [Rx ] Lactulose [Cephulac] 10 gm PO DAILY dose 04/03/17 [Rx] Lidocaine Viscous [Xylocaine Viscous 2%] 30 ml PO AC-TID bottle 04/03/17 [Rx] Mag Hydrox/Al Hydrox/Simeth [Maalox] 30 ml PO AC-TID dose 04/03/17 [Rx] Metoprolol Tartrate [Lopressor] 75 mg PO TID tab 04/03/17 [Rx] Nystatin 100,000 Unit/ml Susp [Mycostatin Oral Susp] 3,000,000 unit PO AC-TID dose 04/03/17 [Rx] Zinc Oxide 20% Oint 1 applic TOPICAL TID dose 04/03/17 [Rx] diphenhydrAMINE ELIXIR [Benadryl Elixir] 75 mg PO AC-TID dose 04/03/17 [Rx] predniSONE 0 mg PO DIRECTED #30 tab 04/03/17 [Rx] Follow up Appointment(s)/Referral(s): Husam Mulligan MD [Primary Care Provider] - 1-2 days Sarmad Gonzalez MD [STAFF PHYSICIAN] - 05/14/17 2:00 pm (To see Dr Gonzalez for general follow up visit at [facility] [place] [facility] on Friday, May 14, 2017 at 2pm. [phone]) Discharge Disposition: TRANSFER TO SNF/ECF
--- NOTE | 2017-04-03 09:40 | P.CNOR ---
History of Present Illness - [facility] Consult date: 04/03/17 Consult reason: joint pain (Right wrist and right elbow pain) History of present illness: This is a 76-year-old male who is admitted with complications secondary to chemo radiation treatment for his small cell lung cancer. He states that his right elbow and right wrist have been painful for quite some time. He denies any injury or trauma. He states that he has been diagnosed with rheumatoid arthritis. He claims that his elbow range of motion has been limited for quite some time. Past Medical History Past Medical History: Atrial Fibrillation, Cancer, GERD/Reflux, Hyperlipidemia, Hypertension, Myocardial Infarction (ME), Prostate Disorder Additional Past Medical History / Comment(s): prostate CA, neuropathy/ Rt lung cancer and lymph nodes CA DX. FEBRUARY 2016/ "STENT" LOW LEFT LEG/ INSOMNIA/ RADIATION MARCH 2017 Last Myocardial Infarction Date:: 05/27/15 History of Any Multi-Drug Resistant Organisms: MRSA Year Discovered:: 09/2015 MDRO Source:: RIGHT TESTICLE Past Surgical History: Coronary Bypass/CABG, Joint Replacement, Prostate Surgery , Tonsillectomy Additional Past Surgical History / Comment(s): left thumb surgery., CABG (), BALLOON ANGIOPLASTY W/ STENT TO LT SFA (08/16/15), lt total knee, prostatectomy, 01/23/17 ICD Past Anesthesia/Blood Transfusion Reactions: No Reported Reaction Past Psychological History: Anxiety, Depression Additional Psychological History / Comment(s): TAKES NO MEDICATION Smoking Status: Former smoker Past Alcohol Use History: Occasional Additional Past Alcohol Use History / Comment(s): STARTED SMOKING AT AGE 15 QUIT SMOKING 2014 SMOKED 1 -1 1/2PPD Past Drug Use History: None Reported - Past Family History Father History Unknown: Yes Family Medical History: No Reported History Additional Family Medical History / Comment(s): young Mother Family Medical History: No Reported History Additional Family Medical History / Comment(s): young Medications and Allergies Home Medications Medication Instructions Recorded Confirmed Type Omeprazole [PriLOSEC] 20 mg PO BID 05/26/15 03/18/17 History Atorvastatin [Lipitor] 80 mg PO DAILY 08/15/15 03/18/17 History Ferrous Sulfate [Iron (65 MG 325 mg PO DAILY 12/19/15 03/18/17 History Elemental)] Oxybutynin Chloride [Ditropan] 5 mg PO QID 12/19/15 03/18/17 History Docusate [Colace] 100 mg PO TID 01/01/16 03/18/17 History Pyridoxine [Vitamin B-6] 100 mg PO DAILY 08/26/16 03/18/17 History Lisinopril [Zestril] 2.5 mg PO DAILY 01/23/17 03/18/17 History Metoprolol Tartrate [Lopressor] 50 mg PO TID 02/17/17 03/18/17 History Multivitamins, Thera [Multivitamin 1 tab PO DAILY 02/17/17 03/18/17 History (formulary)] Spironolactone [Aldactone] 25 mg PO DAILY@0800 02/17/17 03/18/17 History Cholecalciferol [Vitamin D3] 2,000 unit PO DAILY 03/12/17 03/18/17 History Fluconazole [Diflucan] 100 mg PO DAILY 03/12/17 03/18/17 History Fluticasone/Vilanterol [Breo 1 puff INHALATION RT-DAILY 03/12/17 03/18/17 History Ellipta 200-25 Mcg INH] Ipratropium/Albuterol Sulfate 1 puff INHALATION RT-QID 03/12/17 03/18/17 History [Combivent Respimat Inhaler] Ondansetron [Zofran] 4 mg PO Q12HR PRN 03/12/17 03/18/17 History Polyethylene Glycol 3350 [Miralax] 17 gm PO DAILY 03/12/17 03/18/17 History Vitamin E 400 unit PO DAILY 03/12/17 03/18/17 History Apixaban [Eliquis] 2.5 mg PO BID 03/18/17 03/18/17 History Gabapentin 600 mg PO QID 03/18/17 03/18/17 History Allergies Allergy/AdvReac Type Severity Reaction Status Date / Time No Known Allergies Allergy Verified 03/18/17 22:34 Physical Examination This is a pleasant 76-year-old male in no acute distress. He is alert and oriented 3. His voice is still quite hoarse. Exam of the upper extremities reveals no obvious deformity. There is mild increased warmth to the right elbow. There is no erythema or ecchymosis to the upper extremity. He has elbow flexion to about 90 and is lacking about 10 of full extension. There is no pain with palpation about the elbow. There is no swelling or erythema noted to the wrist. He has fairly good flexion and extension of the wrist without pain or difficulty. There is mild pain with palpation about the mid carpal region. There is no snuffbox tenderness noted. He has full finger motion without difficulty or pain. Neurovascular status the upper extremity is intact. Results X-rays of the right elbow reveals severe arthritic changes with significant heterotopic bone formation and spurring. No acute fracture identified. X-ray of the wrist reveals mild to moderate degenerative changes. No acute fractures identified. - Labs Labs: Abnormal Lab Results - Last 24 Hours (Table) 04/02/17 04/02/17 04/02/17 Range/Units 12:06 16:54 20:55 RBC (4.30-5.90) m/uL Hgb (13.0-17.5) gm/dL Hct (39.0-53.0) % RDW (11.5-15.5) % Plt Count (150-450) k/uL Chloride (98-107) mmol/L BUN (9-20) mg/dL Glucose (74-99) mg/dL POC Glucose (mg/dL) 185 H 230 H 225 H (75-99) mg/dL 04/03/17 04/03/17 04/03/17 Range/Units 05:56 05:56 06:13 RBC 2.27 L (4.30-5.90) m/uL Hgb 7.5 L (13.0-17.5) gm/dL Hct 20.7 L (39.0-53.0) % RDW 16.4 H (11.5-15.5) % Plt Count 65 L (150-450) k/uL Chloride 108 H (98-107) mmol/L BUN 24 H (9-20) mg/dL Glucose 192 H (74-99) mg/dL POC Glucose (mg/dL) 200 H (75-99) mg/dL H & H 03/18/17 03/19/17 03/19/17 Range/Units 21:10 03:12 16:34 Hgb 8.4 L 7.1 L 6.4 L* (13.0-17.5) gm/dL Hct 24.5 L 22.0 L 19.1 L* (39.0-53.0) % 03/20/17 03/20/17 03/20/17 Range/Units 00:07 04:15 13:08 Hgb 7.5 L 6.8 L* 8.7 L D (13.0-17.5) gm/dL Hct 22.5 L 20.7 L 25.1 L (39.0-53.0) % 03/21/17 03/22/17 03/23/17 Range/Units 07:03 05:39 05:37 Hgb 7.8 L 7.9 L 8.6 L (13.0-17.5) gm/dL Hct 23.3 L 23.2 L 26.2 L (39.0-53.0) % 03/24/17 03/25/17 03/26/17 Range/Units 05:24 05:22 04:10 Hgb 8.3 L 7.8 L 8.8 L (13.0-17.5) gm/dL Hct 25.4 L 22.4 L 26.7 L (39.0-53.0) % 03/27/17 03/28/17 03/31/17 Range/Units 04:27 04:33 05:14 Hgb 8.8 L 8.4 L 7.4 L (13.0-17.5) gm/dL Hct 26.0 L 24.4 L 22.2 L (39.0-53.0) % 04/01/17 04/02/17 04/03/17 Range/Units 07:18 05:06 05:56 Hgb 8.4 L 7.9 L 7.5 L (13.0-17.5) gm/dL Hct 24.6 L 23.4 L 20.7 L (39.0-53.0) % Coagulation 03/18/17 03/20/17 03/28/17 Range/Units 21:10 04:26 04:33 INR 1.2 1.3 1.3 (<1.1) Result Diagrams: 04/03/17 05:56 04/03/17 05:56 Assessment and Plan (1) Arthritis of right elbow Status: Acute (2) Arthritis of right wrist Status: Acute Plan: The clinical and x-ray findings are discussed with the patient. It is recommended that he be on an anti-inflammatory medication which I will leave up to the discretion of medical management.. Some physical therapy may also be of benefit for pain management. If he does have confirmed rheumatologic disease may benefit from evaluation with rheumatology. He may follow up with her office as needed.
--- NOTE | 2017-04-03 10:31 | P.PN ---
Subjective Principal diagnosis: Acute neutropenic sepsis and respiratory failure This is a 76-year-old gentleman who was initially admitted to the hospital with acute sepsis and associated respiratory failure. He has a known history of coronary artery disease with prior bypass surgery, ischemic cardiomyopathy, chronic persistent A. fib/flutter, PAD with prior vascular stenting, small cell lung CA. Cardiology has been following the patient because of his atrial flutter. Patient continues to be in an atrial flutter heart rate today is maintaining in the 90s on metoprolol tartrate 50 mg one tablet by mouth 3 times a day. Patient was seen and examined this morning, sitting up in the chair. Continues to complain of right elbow pain and swelling. Denies any chest discomfort or fluttering in the chest. Breathing is improving, blood pressure 128/68 with a heart rate in the 100-120's. Increase dose of beta chacorta to 75 mg one tablet by mouth 3 times a day today. Objective - Vital Signs Vital signs: Vital Signs Temp 98.1 F 04/03/17 08:00 Pulse 120 H 04/03/17 08:00 Resp 18 04/03/17 08:00 BP 126/68 04/03/17 08:00 Pulse Ox 98 04/03/17 08:00 Intake & Output 04/02/17 04/03/17 04/03/17 18:59 06:59 18:59 Intake Total 775 707 9395 Balance 467 376 0974 Weight 89.2 kg Intake: IV 600 450 900 Dextrose 5% in Water 1, 600 450 900 000 ml @ 75 mls/hr IV . [id number] ERNESTO Rx#:[id number] Intake, IV Titration 100 Amount Micafungin 100 mg In 100 Sodium Chloride 0.9% 100 ml @ 100 mls/hr IVPB DAILY@1800 ERNESTO Rx#: [id number] Oral 0 400 Other: Voiding Method Toilet Toilet Diaper Diaper Incontinent Incontinent # Voids 1 - Exam PHYSICAL EXAMINATION: HEENT: Head is atraumatic, normocephalic. Pupils equal, round. Neck is supple. There is no elevated jugular venous pressure. HEART EXAMINATION: S1 and S2 irregularly irregular CHEST EXAMINATION: Lungs reveal diminished breath sounds bilaterally with fine expiratory wheezes. ABDOMEN: Soft, nontender. Bowel sounds are heard. No organomegaly noted. EXTREMITIES: 2+ peripheral pulses with 1+ evidence of peripheral edema and no calf tenderness noted. Positive right elbow tenderness and mild swelling NEUROLOGIC patient is awake, alert and oriented -3. . - Labs CBC & Chem 7: 04/03/17 05:56 04/03/17 05:56 Labs: Abnormal Lab Results - Last 24 Hours (Table) 04/02/17 04/02/17 04/02/17 Range/Units 12:06 16:54 20:55 RBC (4.30-5.90) m/uL Hgb (13.0-17.5) gm/dL Hct (39.0-53.0) % RDW (11.5-15.5) % Plt Count (150-450) k/uL Chloride (98-107) mmol/L BUN (9-20) mg/dL Glucose (74-99) mg/dL POC Glucose (mg/dL) 185 H 230 H 225 H (75-99) mg/dL 04/03/17 04/03/17 04/03/17 Range/Units 05:56 05:56 06:13 RBC 2.27 L (4.30-5.90) m/uL Hgb 7.5 L (13.0-17.5) gm/dL Hct 20.7 L (39.0-53.0) % RDW 16.4 H (11.5-15.5) % Plt Count 65 L (150-450) k/uL Chloride 108 H (98-107) mmol/L BUN 24 H (9-20) mg/dL Glucose 192 H (74-99) mg/dL POC Glucose (mg/dL) 200 H (75-99) mg/dL Assessment and Plan (1) Neutropenic sepsis Status: Acute (2) Small cell lung cancer Status: Acute (3) Atrial flutter, chronic Status: Acute (4) Systolic CHF, acute on chronic Status: Acute (5) Ischemic cardiomyopathy Status: Acute (6) AICD (automatic cardioverter/defibrillator) present Status: Acute (7) Acute renal injury Status: Acute (8) PVD (peripheral vascular disease) Status: Acute (9) Hx of CABG Status: Acute (10) HTN (hypertension) Status: Acute (11) Hyperlipemia Status: Acute Plan: Cardiology's perspective, we will increase her metoprolol tartrate 75 mg one tablet by mouth 3 times a day for more optimal heart rate control. Arrangements are being made for possible discharge home, we will make the patient a follow-up appointment with Dr. Naqvi in the office. DNP note has been reviewed, I agree with a documented findings and plan of care. Patient was seen and examined.
[2017-04-03 11:27] VITALS: BP 151/70; TEMP 97.8
[2017-04-03 11:41] VITALS: BMI 29.9
--- NOTE | 2017-04-03 11:48 | P.PN ---
Subjective Principal diagnosis: Acute neutropenic sepsis and respiratory failure 76-year-old male patient who is quite ill and he comes into the hospital because of various medical problems and chronic shortness of breath and difficulty in swallowing and chest congestion and generalized weakness and fatigue. The patient also had limited changes in his mentation. Note that the patient has history of coronary artery disease and he has undergone previous carotid bypass surgery 2014. 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 He has also peripheral vascular disease and has undergone stenting of the left lower extremity. He was recently diagnosed having small cell lung cancer. Diagnosed was established by bronchoscopy as the patient was found to have endobronchial tumor and based on the limited staging of the small cell lung cancer the patient was referred to radiation oncology and hematology oncology. A patient was started on radiation therapy and he was given a total of 10 sessions of radiation therapy and he has another 10 sessions to go. He was also given the first session of systemic chemotherapy with a combination of carboplatinum and MACH[employer] APPRENTICE-16. Note that the patient was doing well to around a few days ago and he started developing worsening in his mucositis and swallowing. His chest started becoming more congested. He was unable to swallow. He became progressively more weak and dehydrated. The family and himself denied any episodes of aspiration. He denied having any nausea vomiting or diarrhea. He reported burning sensation in his upper chest. At the same time he has noted some purulent nodules arising in his groin and suprapubic area. These are small nodular lesions that are measuring 1-2 cm in size which have some central purulent material draining. No dysuria. No frequency. No urgency. He still producing urine output. In the burst department the patient was found to be also in atrial fibrillation with rapid ventricular response and he was started on IV heparin and IV Cardizem. Rate is still tachycardic in the 120 range. At the same time the patient was found to be neutropenic and pancytopenic. His white cell count was at 0.2. He is single was 8.4. His platelet count at 48, 000. His creatinine was at 1.2. The patient was started on IV fluids. He was given IV fluid boluses and currently is on any normal saline infusion rate of 1 25 mL an hour. The patient is also on a combination of cefepime and vancomycin. No fever at this point. No headache. No neck stiffness. On 03/20/2017 I'm seeing this patient in follow-up in the intensive care unit. He is doing slightly better. Still unable to swallow and still having burning sensation in his throat and upper chest related to severe mucositis. He is afebrile. He is hemodynamically stable. He is on broad-spectrum antibiotics. All of the cultures of been negative. Still pancytopenic and the white cell count today is at 0.3 with a hemoglobin of 8.7 and platelet count of 23,000. He is still in atrial fibrillation with rate being controlled. He is on no anti -coagulation based on his underlying thrombocytopenia. He has a component of non-anion gap metabolic acidosis. His bicarb level is at 17. CAT scan of the brain was done today and the patient had shown mild diffuse cerebral atrophy with mild to moderate chronic small vessel ischemic changes. No other enhancing lesions. Family is at the bedside. The patient is lethargic and still profoundly weak. On 03/21/2017 I'm seeing this patient in follow-up in the intensive care units. Very much delirious and overnight very much agitated for which she was given Haldol and Ativan. Bit more comfortable and calm her today this morning. Family is at the bedside. Remains profoundly pancytopenic without any major recovery in his hematologic profile. Afebrile and hemodynamically stable covered with broad-spectrum antibiotics. All of the cultures have not indicated any specific microbial growth for now. ID is on the case. The pustules and the groin and suprapubic area remains unchanged. There are several of them at least 6 and only a few had some purulent center which seems to be much more dried up on today's evaluation. No bleeding. Platelet counts have dropped down to 13,000. Vancomycin trough is at 17.8. On 03/22/2017 I'm seeing this patient in follow-up. The patient is quite lethargic. He was agitated throughout the night. He had required several doses of Haldol and Ativan. He is per much sedated at this point and seems to be more comfortable. I was told that overnight he was very agitated and difficult to control. He is on 2 point restraints at this point. Hematologically, the patient is still pancytopenic and he still being treated for neutropenic fevers. He has a white cell count of 0.4 with a hemoglobin of 7.7 and platelet count of 17,000. He is afebrile. The cultures obtained from the groin wounds/pustules rim turning finisher to be MRSA and there may be also group D enterococcus. Blood cultures of been negative. Urine culture been negative. The patient is on no pressors. The patient is still on a combination of cefepime and vancomycin and micafungin regarding his neutropenic sepsis. ID is on the case. On 03/23/2017, the patient remains intubated on the mechanical ventilator. The patient sedated with Diprivan. The patient currently is an assist-control mode of ventilation, etc. rate of 20, tidal volume of 500, FiO2 of 40% and a PEEP of 5. The blood gases from this morning showed a pH of 7.37 with a pCO2 of 25 and pO2 of 144. The patient's chest x-ray shows a small right-sided pleural effusion. ET tube is in a good location. The patient is well sedated. The patient is receiving enteral feeding for nutritional support. The patient is on no pressors at this point and he is hemodynamically stable. The patient has been found to have MRSA in the suprapubic pustules and the patient is currently on a combination of vancomycin, Zosyn and micafungin. He remains pancytopenic and there is no improvement in his hematologic profile. White cell count remains at 0.5 with a hemoglobin of 8.6 and a platelet count of 12,000. CAT scan of the bilateral lower extremity was done yesterday and the patient has some enlarged left exterior iliac chain lymph nodes as well as bilateral prominent but nonenlarged inguinal femoral lymph node chains. There is some focal inflammatory changes along the anterior right groin area likely representing an area of cellulitis. No abscesses could be found. No evidence of any necrotizing fasciitis at this point. The patient is tolerating his tube feeds. He is calm and comfortable at this point. No other significant events overnight. On 03/24/2017, patient remains intubated, on mechanical ventilation. His ventilator settings were reviewed, FiO2 is 30%, assist control rate of 20 tidal volume of 500 and PEEP of 5. ABG showed a pO2 of 156 pCO2 of 25 pH of 7.40. Other labs were reviewed, WBC count remains low at 0.4, hemoglobin is 8.3, platelets are 11,000. Basic metabolic profile showed sodium of 145 chloride is 121 patient has a hyperchloremic metabolic acidosis non-anion gap. Chest x-ray showed mild cardiomegaly and left basilar air space disease with small bilateral pleural effusions. Antibiotics remain to include cefepime, micafungin , and vancomycin. Patient remains sedated on propofol drip, hemodynamically seems to be relatively stable. Wound culture has been positive for methicillin staph aureus and Enterococcus faecalis. Both are sensitive to vancomycin. Patient was reevaluated today on 03/25/2017, remains intubated, on mechanical ventilation, his weaning parameters were noted to be poor today, and his respirator rate on CPAP was in the high 50s. Hence no further attempts of weaning was made. ABG showed a pO2 of 94 pCO2 of 26 pH of 7.44. His vent settings are tidal volume of 500 FiO2 of 30% assist control rate of 16 and PEEP is 5. Chest x-ray showed stable by basilar atelectasis or infiltrates. And mild central venous congestion. All labs were reviewed, WBC count is 0.8 today , hemoglobin is 7.8 sodium is 147 chloride is 120 bicarb is 18, renal profile is normal. Patient was earlier on propofol drip, however he was noted to be appropriate when the propofol was discontinued, and a short the CPAP trial was given. Reevaluated today on 03/26/2017, patient remains on mechanical ventilation, intubated, patient is presently on propofol which I plan to discontinue and at least give the patient weaning parameters and possibly a weaning trial. However patient is in atrial flutter, rate is 140, and I plan to reconsult cardiology regarding his atrial flutter, in the meantime I will start the patient on Cardizem with 10 mg bolus and 10 mg drip per hour. Ventilator settings were reviewed, he is presently on assist control rate of 16 tidal volume of 500 FiO2 of 30%, and PEEP is 5. ABG showed a pO2 of 113 pCO2 of 26 pH of 7.45. CBC is showing improvement, WBC count is 2.2 hemoglobin is 8.8 platelets remained low at 57,000. Sodium is 148, hence I will recommend free water flushes. Renal profile is normal. Blood cultures have been negative with cultures have been positive for MRSA and Enterococcus faecalis. Antibiotics remain the same. On 03/27/2017, patient is now off mechanical ventilation, he was extubated yesterday uneventfully. I was actually in the ICU when the patient was extubated last night. He did quite well, tolerated the extubation and continues to tolerate the extubation well. Patient is very appropriate, in no form of respiratory distress. Labs were reviewed, WBC count is up to 4.0 hemoglobin is 8.8 and his platelets are 27,000. His electrolytes continued to show hypernatremia and hyperchloremia, hence I will switch his main IV fluid to D5W at 75 mL per hour. Chest x-ray showed mild cardiomegaly and mild vascular congestion, no evidence of raheem edema. On 03/28/2017, patient seems to be doing quite well, he is hemodynamically stable , in no distress, remains in atrial flutter but the rate seems to be better controlled. Patient is still on Cardizem drip, and I plan to transfer the patient today to selective/monitor bed. Patient denies any cough no wheezing no shortness of breath. He seems to be much improved over the last 2 days. Labs revealed WBC count of 3.8 hemoglobin is 8.4 platelets 19,000. Electrolytes and renal profile are normal. Chest x-ray is relatively unremarkable. On 03/29/2017, patient is now on a monitor bed on selective, doing quite well, relatively asymptomatic except for some weakness. No shortness of breath no cough no wheezing. WBC count is up to 3.8 hemoglobin is 8.4 platelets remain low at 19,000 but no evidence of bleeding. Basic metabolic profile is relatively normal. Renal profile is normal. Blood cultures have been negative while along, but with cultures were positive for MRSA and Enterococcus faecalis. On 03/30/2017, patient continues to do relatively well. Relatively asymptomatic , generally weak, no cough no wheezing no shortness of breath. CBC was last done on 03/28. No labs were done in the last 2 days. Except for blood sugar. Patient was reevaluated today on 03/31/2017, continues to do relatively well, relatively asymptomatic, remains generally weak, no cough no wheezing no shortness of breath. Labs were reviewed, WBC count is 9.6 hemoglobin is 7.4 [place] [id number]. Last chest x-ray was on 03/28/2017, it was also reviewed, and there was no evidence of active process. The patient was seen again today 04/03/2017 in follow-up on the selective care unit. He is currently sitting up in the chair at the bedside. He is awake and alert in no acute distress. He denies any shortness of breath, cough or congestion. No fever chills or night sweats. He is maintaining good O2 saturations in the high 90s on room air. He is afebrile. Hemodynamically stable. Current white count 7.2. Hemoglobin 7.5. Platelet count 65,000. Objective - Vital Signs Vital signs: Vital Signs Temp 97.8 F 04/03/17 11:26 Pulse 133 H 04/03/17 11:26 Resp 18 04/03/17 11:26 BP 151/70 04/03/17 11:26 Pulse Ox 98 04/03/17 11:26 Intake & Output 04/02/17 04/03/17 04/03/17 18:59 06:59 18:59 Intake Total 585 485 0206 Balance 895 591 9034 Weight 89.2 kg 89.2 kg Intake: IV 600 450 900 Dextrose 5% in Water 1, 600 450 900 000 ml @ 75 mls/hr IV . [id number] ERNESTO Rx#:[id number] Intake, IV Titration 100 Amount Micafungin 100 mg In 100 Sodium Chloride 0.9% 100 ml @ 100 mls/hr IVPB DAILY@1800 ERNESTO Rx#: [id number] Oral 0 400 Other: Voiding Method Toilet Toilet Diaper Diaper Incontinent Incontinent # Voids 1 - Exam GENERAL EXAM: Alert, comfortable in no apparent distress. HEAD: Normocephalic. EYES: Normal reaction of pupils, equal size. NOSE: Clear with pink turbinates. THROAT: No erythema or exudates. NECK: No masses, no JVD. CHEST: No chest wall deformity. LUNGS: Equal air entry with no crackles, wheeze, rhonchi or dullness. CVS: S1 and S2 normal with no audible mumurs, regular rhythm. ABDOMEN: No hepatosplenomegaly, normal bowel sounds, no guarding or rigidity. SPINE: No scoliosis or deformity SKIN: No rashes CENTRAL NERVOUS SYSTEM: No focal deficits, tone is normal in all 4 extremities. Extremities: There is trace peripheral edema. No clubbing, no cyanosis. Peripheral pulses are intact. - Labs CBC & Chem 7: 04/03/17 05:56 04/03/17 05:56 Labs: Abnormal Lab Results - Last 24 Hours (Table) 04/02/17 04/02/17 04/02/17 Range/Units 12:06 16:54 20:55 RBC (4.30-5.90) m/uL Hgb (13.0-17.5) gm/dL Hct (39.0-53.0) % RDW (11.5-15.5) % Plt Count (150-450) k/uL Chloride (98-107) mmol/L BUN (9-20) mg/dL Glucose (74-99) mg/dL POC Glucose (mg/dL) 185 H 230 H 225 H (75-99) mg/dL 04/03/17 04/03/17 04/03/17 Range/Units 05:56 05:56 06:13 RBC 2.27 L (4.30-5.90) m/uL Hgb 7.5 L (13.0-17.5) gm/dL Hct 20.7 L (39.0-53.0) % RDW 16.4 H (11.5-15.5) % Plt Count 65 L (150-450) k/uL Chloride 108 H (98-107) mmol/L BUN 24 H (9-20) mg/dL Glucose 192 H (74-99) mg/dL POC Glucose (mg/dL) 200 H (75-99) mg/dL Assessment and Plan Plan: Impression: 1 neutropenic sepsis. The patient is afebrile however he has very source of infection at these to be considered including the lungs, esophagitis and no other pustular lesions in the suprapubic and inguinal area which could be potentially staphylococcal or fungal. The wound cultures rim turning finisher to be positive for enterococcus and MRSA. The patient remains on a combination of cefepime, vancomycin and micafungin. 2 limited stage small cell lung cancer status post chemoradiation therapy. The patient has received one session of systemic chemotherapy with carboplatinum and MACH[employer] APPRENTICE-16 and 10 sessions of radiation therapy 3 esophagitis/mucositis secondary to radiation therapy with secondary difficulty in swallowing. Rule out candidal esophagitis 4 pancytopenia secondary to chemotherapy. . resolving, and seems to be improving over the last couple of days. 5 Atrial flutter , being managed by cardiology on the case. rate seems to be better controlled today. 6 CHF with an ejection fraction of 35% 7 coronary artery disease with multivessel involvement and the patient is status post carotid bypass surgery 8 history of AICD placement 9 dysphagia, currently nothing by mouth 10 acute kidney injury, improved in the creatinine normalized 11 peripheral vascular disease with previous vascular intervention of the left lower extremity 12 prostate cancer status post prostatectomy 13 severe peripheral neuropathy 14 depression/anxiety 15 coronary artery bypass surgery, history of 16 acute respiratory failure resolved, patient required intubation and mechanical ventilation for a few days. Resolved 17 hyperchloremic hypernatremia improved Plan: The patient was seen and evaluated by Dr. Sol. He is stable from the pulmonary and critical care standpoint. We'll continue with his current medications. The plan is for discharge home versus inpatient rehabilitation. Discharge planning is in place.
[2017-04-03 12:10] LABS: Glucose,Whole Blood 213 mg/dL (75-99)
[2017-04-03 12:48] LABS: Add Differential Manual Differential
[2017-04-03 12:50] LABS: Nucleated Red Blood Cells 1 /100 WBC (0-0); Total Cells Counted 200
[2017-04-03 12:51] LABS: Manual Review Performed; WBC 7.1 k/uL (3.8-10.6)
[2017-04-03] MEDS: HYDROcodone/APAP 5-325MG 1 EACH TAB PO PRN (13:49)
[2017-04-03 15:34] VITALS: PULSE 104
[2017-04-03] MEDS ORDERED: METOPROLOL TARTRATE 25 MG TAB PO SCH (16:00)
== END 2017-04-03 15:59 | DRG 870 ==
LOC: EC 20:39 → 6SEL 23:10 → 6ICU 03-19 16:57 → 6SEL 03-28 15:07
PROVIDERS: ADMIT Family Medicine; ATTEND Family Medicine
PROC: 0BH18EZ Insertion of Endotracheal Airway into Trachea, Via Natural or Artificial Opening Endoscopic (ICD-10-PCS; principal; 2017-03-22)
PROC: 5A1955Z Respiratory Ventilation, Greater than 96 Consecutive Hours (ICD-10-PCS; principal; 2017-03-22)
PROC: 0CJS8ZZ Inspection of Larynx, Via Natural or Artificial Opening Endoscopic (ICD-10-PCS; 2017-04-01)
DX: A41.02 Sepsis due to Methicillin resistant Staphylococcus aureus (principal); J96.00 Acute respiratory failure, unspecified whether with hypoxia or hypercapnia; R65.21 Severe sepsis with septic shock; I50.23 Acute on chronic systolic (congestive) heart failure; N17.9 Acute kidney failure, unspecified; D61.810 Antineoplastic chemotherapy induced pancytopenia; C77.9 Secondary and unspecified malignant neoplasm of lymph node, unspecified; C78.7 Secondary malignant neoplasm of liver and intrahepatic bile duct; I48.1 Persistent atrial fibrillation; I49.02 Ventricular flutter; E87.0 Hyperosmolality and hypernatremia; I13.0 Hypertensive heart and chronic kidney disease with heart failure and stage 1 through stage 4 chronic kidney disease, or unspecified chronic kidney disease; E87.2 Acidosis; C34.90 Malignant neoplasm of unspecified part of unspecified bronchus or lung; I48.92 Unspecified atrial flutter; L03.90 Cellulitis, unspecified; L97.129 Non-pressure chronic ulcer of left thigh with unspecified severity; D69.59 Other secondary thrombocytopenia; E86.0 Dehydration; D70.3 Neutropenia due to infection; E78.5 Hyperlipidemia, unspecified; E86.1 Hypovolemia; E87.8 Other disorders of electrolyte and fluid balance, not elsewhere classified; G62.9 Polyneuropathy, unspecified; I25.10 Atherosclerotic heart disease of native coronary artery without angina pectoris; I25.2 Old myocardial infarction; I25.5 Ischemic cardiomyopathy; I48.0 Paroxysmal atrial fibrillation; I48.2 Chronic atrial fibrillation; I73.9 Peripheral vascular disease, unspecified; J38.01 Paralysis of vocal cords and larynx, unilateral; K12.30 Oral mucositis (ulcerative), unspecified; K21.0 Gastro-esophageal reflux disease with esophagitis; K59.00 Constipation, unspecified; L29.9 Pruritus, unspecified; M06.9 Rheumatoid arthritis, unspecified; M17.0 Bilateral primary osteoarthritis of knee; M19.021 Primary osteoarthritis, right elbow; M19.031 Primary osteoarthritis, right wrist; N18.3 Chronic kidney disease, stage 3 (moderate); N40.0 Benign prostatic hyperplasia without lower urinary tract symptoms; R13.19 Other dysphagia; T45.1X5A Adverse effect of antineoplastic and immunosuppressive drugs, initial encounter; Y84.2 Radiological procedure and radiotherapy as the cause of abnormal reaction of the patient, or of later complication, without mention of misadventure at the time of the procedure; Z79.01 Long term (current) use of anticoagulants; Z79.51 Long term (current) use of inhaled steroids; Z79.899 Other long term (current) drug therapy; Z85.46 Personal history of malignant neoplasm of prostate; Z87.891 Personal history of nicotine dependence; Z92.3 Personal history of irradiation; Z95.1 Presence of aortocoronary bypass graft; Z95.5 Presence of coronary angioplasty implant and graft; Z95.810 Presence of automatic (implantable) cardiac defibrillator; Z96.652 Presence of left artificial knee joint
CPT/HCPCS: 36415; 36430; 36600; 70470; 71010; 71020; 74230; 80048; 80053; 80202; 81003; 82805; 83036; 83605; 83735; 84100; 84484; 84550; 85025; 85027; 85610; 85730; 86850; 86900; 86901; 86920; 87040; 87070; 87077; 87086; 87186; 87205; 93005; 93923; 94002; 94003; 94640; 94760; 94770; 96365; 96366; 96368; 96375; 96376; 99291

== ENCOUNTER → 2017-05-14 | Outpatient (CLI) | payer MEDICARE, OTHER ==
[2017-05-14 17:53] LABS: Anisocytosis Slight; CH 33.8; HCT 29.3 % (39.0-53.0); HDW 3.17; HGB 9.9 gm/dL (13.0-17.5); MCH 34.8 pg (25.0-35.0); MCHC 33.8 g/dL (31.0-37.0); MCV 103.1 fL (80.0-100.0); Macrocytosis Moderate; Mean Platelet Volume 8.2; RBC 2.85 m/uL (4.30-5.90); RDW 17.2 % (11.5-15.5); WBC 8.9 k/uL (3.8-10.6)
[2017-05-14 18:14] LABS: ALT 19 U/L (21-72); AST 16 U/L (17-59); Alkaline Phosphatase 103 U/L (38-126); Anion Gap 12 mmol/L; Blood Urea Nitrogen 41 mg/dL (9-20); Calcium 9.2 mg/dL (8.4-10.2); Carbon Dioxide 22 mmol/L (22-30); Chloride 106 mmol/L (98-107); Glucose 104 mg/dL (74-99); Non-African American GFR(MDRD) >60 (>60 ml/min/1.73 sqM); Potassium 4.7 mmol/L (3.5-5.1); Sodium 140 mmol/L (137-145); Total Bilirubin 0.6 mg/dL (0.2-1.3); Total Protein 6.5 g/dL (6.3-8.2)
== END | disposition home or self-care (01) ==
LOC: LABWHC1 16:49
PROVIDERS: ATTEND Radiology Radiation Oncology
DX: C34.11 Malignant neoplasm of upper lobe, right bronchus or lung (principal)
CPT/HCPCS: 36415; 80053; 85027

== ENCOUNTER → 2017-06-07 | Outpatient (CLI) | payer MEDICARE, OTHER ==
--- NOTE | 2017-06-07 14:03 | PE ---
EXAMINATION TYPE: PET CT fusion skull to thigh DATE OF EXAM: 06/07/2017 CLINICAL HISTORY: Lung cancer progress study originally diagnosed February 2017 right upper lobe. Histor y of chemotherapy and radiation treatment unsure of dates. TECHNIQUE: Following the intravenous administration of 11.23 mCi of F-18 FDG, whole body images are performed from the skull base to the midthigh. Images are reviewed on the computer in the coronal, axial, and sagittal planes. Reconstructed rotating images are created on independent workstation and reviewed on the computer. A non-contrast CT is performed in conjunction with the PET scan. COMPARISON: Prior PET/CT March 01, 2017 Subsequent exam. FINDINGS: SKULL BASE AND NECK: No suspicious hypermetabolic uptake is seen in the neck on current study. CHEST, MEDIASTINUM, AND HILAR REGION: There is background of mild to moderate emphysematous change re demonstrated. Previously visualized spiculated nodule right upper lobe near apex is not as well seen on current study. It likely is still present with max SUV 3.46 on axial image 66 measuring roughly 1. 3 x 0.6 cm. On current study smaller versus prior. There is now diffuse right upper lobe consolidatio n with air bronchograms that shows some increased hypermetabolic uptake, there is some involvement of the superior aspect of the right lower lobe. Max SUV is 7.06 posteriorly. No new additional areas of suspicious hypermetabolic uptake are clearly seen. Dependent atelectasis in both lung bases is prese nt. Area of abnormal hypermetabolic uptake right hilar region is not clearly seen on current study. P reviously visualized enlarged thoracic lymph nodes are improved in size. ABDOMEN AND PELVIS: No suspicious hypermetabolic uptake is seen in the abdomen or pelvis. Some increa se uptake in the right colon is redemonstrated similar to prior study presumed physiologic. OSSEOUS STRUCTURES: No suspicious hypermetabolic uptake is seen in osseous structures. OTHER CT: There is mild calcified plaque in bilateral carotid bulbs. There is redemonstration of cardiomegaly with single lead pacemaker. Post CABG changes with mediastin al clips and sternal wires is redemonstrated. Small degree of bilateral gynecomastia is again seen. Some fat replaced atrophy of pancreas is redemonstrated. Prostate gland is surgically absent. Surgical clips overlie the bilateral pelvic sidewalls are redemo nstrated. Osseous structures are somewhat demineralized. There is multilevel spurring in the spine seen. There is facet arthropathy lower lumbar levels redemonstrated. IMPRESSION: Marked interval treatment response with marked improvement of thoracic and right hilar ad enopathy as subcentimeter nonhypermetabolic lymph nodes are now present. Spiculated nodule right uppe r lung superiorly is diminished in size with mild increased hypermetabolic uptake remaining present. Diffuse consolidation shows hypermetabolic uptake favoring infectious or inflammatory etiology.
== END | disposition home or self-care (01) ==
LOC: RADPETMAIN 10:17
PROVIDERS: ATTEND Radiology Radiation Oncology
DX: C34.11 Malignant neoplasm of upper lobe, right bronchus or lung (principal)
CPT/HCPCS: 78815; A9552

== ENCOUNTER → 2017-07-03 | Outpatient (CLI) | payer MEDICARE, OTHER ==
--- NOTE | 2017-07-04 10:48 | ECHOF ---
Referral Reason:R00.0 Tachycardia MEASUREMENTS -------- HEIGHT: 172.7 cm WEIGHT: 85.7 kg BP: 110/68 RVIDd: 3.3 cm (< 3.3) IVSd: 1.2 cm (0.6 - 1.1) LVIDd: 4.5 cm (3.9 - 5.3) LVPWd: 1.2 cm (0.6 - 1.1) IVSs: 1.4 cm LVIDs: 4.0 cm LVPWs: 1.8 cm LA Diam: 4.8 cm (2.7 - 3.8) LAESV Index (A-L): 38.03 ml/m Ao Diam: 3.5 cm (2.0 - 3.7) AV Cusp: 2.5 cm (1.5 - 2.6) MV EXCURSION: 20.824 mm (> 18.000) MV EF SLOPE: 117 mm/s (70 - 150) EPSS: 0.5 cm RAP: 5.00 mmHg RVSP: 32.48 mmHg FINDINGS -------- AICD This was a technically good study. The left ventricular size is normal. There is borderline concentric left ventricular hypertrophy. Overall left ventricular systolic function is severely impaired with, an EF between 20 - 25 %. Basal inferior LV wall motion is hypokinetic. Mid anterior LV wall motion is hypokinetic. Mid inferoseptal LV wall motion is hypokinetic. Apical anterior LV wall motion is normal. Apical septum LV wall motion is hypokinetic. The right ventricle is mildly enlarged. LA is moderately dilated 34-39 ml/m2 The right atrium is normal in size. Aortic valve is trileaflet and is mildly thickened. Mild mitral annular calcification present. Mild mitral regurgitation is present. [id number] tricuspid regurgitation present. Right ventricular systolic pressure is normal at < 35 mmHg. Moderate pulmonic regurgitation. The aortic root size is normal. inferior vena cava with normal inspiratory collapse consistent with estimated right atrial pressure of 5 mmHg. The inferior vena cava is mildly dilated. There is no pericardial effusion. CONCLUSIONS -------- 1. AICD 2. Apical septum LV wall motion is hypokinetic. 3. The right ventricle is mildly enlarged. 4. LA is moderately dilated 34-39 ml/m2 5. The right atrium is normal in size. 6. Aortic valve is trileaflet and is mildly thickened. 7. Mild mitral annular calcification present. 8. Mild mitral regurgitation is present. 9. [id number] tricuspid regurgitation present. 10. Right ventricular systolic pressure is normal at < 35 mmHg. 11. Moderate pulmonic regurgitation. 12. This was a technically good study. 13. The aortic root size is normal. 14. inferior vena cava with normal inspiratory collapse consistent with estimated right atrial pressure of 5 mmHg. 15. The inferior vena cava is mildly dilated. 16. There is no pericardial effusion. 17. The left ventricular size is normal. 18. There is borderline concentric left ventricular hypertrophy. 19. Overall left ventricular systolic function is severely impaired with, an EF between 20 - 25 %. 20. Basal inferior LV wall motion is hypokinetic. 21. Mid anterior LV wall motion is hypokinetic. 22. Mid inferoseptal LV wall motion is hypokinetic. 23. Apical anterior LV wall motion is normal. BARIATRIC PROGRAM COORDINATOR: Zahra Escalante RDCS
== END ==
LOC: RADECHMAIN 13:05
PROVIDERS: ATTEND Internal Medicine Critical Care Medicine
DX: I08.1 Rheumatic disorders of both mitral and tricuspid valves (principal)
CPT/HCPCS: 93306